=== PATIENT | male | born 1955 | race Caucasian/White ===

== ENCOUNTER 2017-07-31 05:02 | Inpatient (IN) | payer OTHER ==
[2017-07-31] MEDS ORDERED: SODIUM CHLORIDE 0.9% 1000 ML INFUS.BAG IV STA (05:32)
[2017-07-31 06:09] LABS: BASO % 0.4 % (0-2.0); EOS % 0.1 % (0-4.5); HEMATOCRIT 24.6 % (35.4-49); HEMOGLOBIN 8.4 GM/dL (11.7-16.9); LYMPH % 7.5 % (8-40); MCH 33.7 pg (25.7-33.7); MCHC 34.2 g/dl (32.0-35.9); MEAN CELL VOLUME 98.6 fl (80-96); MEAN PLT VOLUME 10.1 fl (7.5-11.1); MONO % 9.1 % (3.8-10.2); NEUT % 82.9 % (42.8-82.8); PLATELET COUNT 153 K/MM3 (134-434); RBC 2.49 M/mm3 (4.00-5.60); RDW 15.9 % (11.9-15.9); WHITE BLOOD COUNT 14.9 K/mm3 (4.0-10.0)
[2017-07-31 06:11] LABS: URINE APPEARANCE CLOUDY; URINE BILIRUBIN NEGATIVE (<2.0 mg/dL); URINE COLOR DKYELLOW; URINE GLUCOSE (UA) 1+ (NEGATIVE); URINE KETONE NEGATIVE (NEGATIVE); URINE NITRITE NEGATIVE (NEGATIVE); URINE UROBILINOGEN NEGATIVE mg/dL (0.2-1.0)
[2017-07-31 06:13] VITALS: BMI 30.1
[2017-07-31 06:15] LABS: VENOUS PC02 39.2 mmHg (38-52); VENOUS PH 7.47 (7.32-7.42); VENOUS PO2 46.7 mmHg (28-48)
[2017-07-31 06:27] LABS: URINE LEUK ESTERASE 3+ (NEGATIVE); URINE PROTEIN 2+ (NEGATIVE)
[2017-07-31 06:30] LABS: EPI CELLS RARE /HPF (FEW); URINE BACTERIA MODERATE /hpf (NONE SEEN)
[2017-07-31 06:33] LABS: ALBUMIN 2.3 g/dl (3.4-5.0); ALK PHOS 74 U/L (45-117); ANION GAP 7 (8-16); BILIRUBIN,TOTAL 0.4 mg/dL (0.2-1.0); BLOOD UREA NITROGEN 26 mg/dL (7-18); CHLORIDE 108 mmol/L (98-107); CO2 28 mmol/L (21-32); CREATININE 0.8 mg/dL (0.7-1.3); GLUCOSE,RANDOM 164 mg/dL (74-106); SGPT/ALT 31 U/L (12-78); SODIUM 143 mmol/L (136-145); TOT PROT 6.1 g/dl (6.4-8.2)
--- NOTE | 2017-07-31 06:38 | PDOC ---
History of Present Illness - General Chief Complaint: SIRS, Suspected/Possible Stated Complaint: FEVER Time Seen by Provider: 07/31/17 05:39 History Source: Care Provider, EMS Exam Limitations: No Limitations - History of Present Illness Initial Comments: 07/31/17 06:14 Patient is a 61-year-old male with history of dry eye syndrome, GERD with esophagitis, rheumatic mitral valve disease, hypertension, PT, pressure ulcers, pain disorder, tracheostomy, anemia, hypotension, hypothyroid, anemia, typhoid fever, by EMS for fever. On arrival they found patient lethargic they started an IV line gave him fluids. [facility] called spoke with the RN states that given Levaquin 500mg at 10pm and vancomycin 1 gm at 3 am, tylenol at 2 am. Patient is unable to participate in his history to to trach. PMD: Dr. Dobbins PMHX: as above, PSOCHX: Lives in the in [facility], (+) DNR ALL: NKDA ROS limited to to patient medical condition GENERAL: [The patient is awake, in no mild distress.] HEAD: [Normal with no signs of trauma.] EYES: [Pupils equal, round and reactive to light, sclera anicteric, conjunctiva clear.] ENT: [Ears normal, nares patent, oropharynx clear without exudates. Dry mucous membranes.] NECK: JVD, or masses, (+) trach collar] LUNGS: [Breath sounds equal, clear to auscultation bilaterally. No wheezes, and no crackles.] HEART: [Regular rate and rhythm, normal S1 and S2 without murmur, rub.] ABDOMEN: [Soft, nontender, normoactive bowel sounds. No guarding, no rebound. No masses.] EXTREMITIES: Flacid extremities, no edema. No clubbing or cyanosis. No cords, erythema, or tenderness.] NEUROLOGICAL: sensitive to touch, PSYCH: [Normal mood, normal affect.] SKIN: Penile warts, (+) stage 2 scaral decubitus, warmth, poor turgor, hyper pigmented rash to the b/l lower ext Past History - Past Medical History Allergies/Adverse Reactions: Allergies Allergy/AdvReac Type Severity Reaction Status Date / Time No Known Allergies Allergy Verified 05/26/13 15:18 Home Medications: Ambulatory Orders Acetaminophen [Tylenol Extra Strength] 500 mg PO PRN 07/31/17 Famotidine 20 mg PO DAILY 07/31/17 Heparin Sod,Porcine/0.9 % NaCl [Heparin 5,000 Unit/5 ml-Ns] 5,000 unit IV DAILY 07/31/17 Levothyroxine [Synthroid -] 25 mcg PO DAILY 07/31/17 Metoprolol Succinate 25 mg PO BID 07/31/17 Sennosides [Senna] 8.8 mg PO DAILY 07/31/17 levoFLOXacin [Levaquin -] 500 mg PO DAILY 07/31/17 Anemia: No Asthma: No Cancer: No Cardiac Disorders: No CVA: No COPD: No CHF: No Dementia: No Diabetes: No GI Disorders: No Disorders: No HTN: Yes Hypercholesterolemia: No Kidney Stones: No Liver Disease: No Seizures: Yes (drug related seizure 12/2012) Thyroid Disease: No - Surgical History Abdominal Surgery: No Appendectomy: No Cardiac Surgery: No Cholecystectomy: No Lung Surgery: No Neurologic Surgery: No Orthopedic Surgery: No - Reproductive History Testicular Surgery: No - Suicide/Smoking/Psychosocial Hx Smoking History: Unknown if ever smoked Have you smoked in the past 12 months: No If you are a former smoker, when did you quit?: 9 years ago Hx Alcohol Use: No Drug/Substance Use Hx: No Substance Use Type: Tranquilizers (XANAX 4MG/D,KLONIOPIN 3MG/D) Hx Substance Use Treatment: Yes ([facility]) Respiratory Specific PMHX - Complaint Specific PMHX TB (Tuberculosis): No *Physical Exam - Vital Signs Last Vital Signs Temp Pulse Resp BP Pulse Ox 103.0 F H 100 H 15 143/74 100 07/31/17 06:07 07/31/17 06:07 07/31/17 06:07 07/31/17 06:07 07/31/17 06:07 ED Treatment Course - LABORATORY CBC & Chemistry Diagram: 07/31/17 05:41 07/31/17 05:41 - RADIOLOGY Radiology Studies Ordered: Category Date Time Status CHEST X-RAY PORTABLE* [RAD] Stat Radiology 07/31/17 05:29 Ordered - Medications Given in the ED: ED Medications Discontinued Medications Generic Name Dose Route Start Last Admin Trade Name Freq PRN Reason Stop Dose Admin Sodium Chloride 3,000 ml 07/31/17 05:32 07/31/17 06:06 Normal Saline - IV 07/31/17 05:33 3,000 ml ONCE STA Administration Medical Decision Making - Medical Decision Making 07/31/17 06:39 Patient is a 61-year-old male with history of dry eye syndrome, GERD with esophagitis, rheumatic mitral valve disease, hypertension, PT, pressure ulcers, pain disorder, tracheostomy, anemia, hypotension, hypothyroid, anemia, typhoid fever, by EMS for fever. Sepsis workup initiated, continued IV fluids at 30ml/kg will give zosyn 3.375mg IV patient was given vancomyin 1 gm at the prison admit 07/31/17 06:44 EKG SR rate 07/31/17 06:47 cxr neg labs noted wbc, wbc on urine 07/31/17 06:[address] Will have to [address] Dr. Bobby Sheppard for admission orders 07/31/17 06:57 Endorsed to the 7 AM team pending orders for admit *DC/Admit/Observation/Transfer Diagnosis at time of Disposition: UTI (urinary tract infection) Sepsis Qualifiers: Sepsis type: sepsis due to unspecified organism Qualified Code(s): A41.9 - Sepsis, unspecified organism - Discharge Dispostion Condition at time of disposition: Guarded - Referrals - Patient Instructions - Post Discharge Activity
[2017-07-31 06:41] LABS: INR 1.29 (0.82-1.09); POTASSIUM 3.6 mmol/L (3.5-5.1); PROTHROMBIN TIME (PATIENT) 14.6 SEC (9.98-11.88); SGOT/AST 29 U/L (15-37)
[2017-07-31 06:44] LABS: ACTIVATED PTT 29.3 SECONDS (26.9-34.4)
[2017-07-31] MEDS ORDERED: PIPERACILLIN/TAZOB 3.375 GM 3.375 GM in DEXTROSE 5%-WATER - 50 ML IVPB ONE (06:48)
[2017-07-31] MEDS ORDERED: ACETAMINOPHEN 650 MG SUPP.RECT PR ONE (07:03)
--- NOTE | 2017-07-31 07:29 | HP ---
CHIEF COMPLAINT: fever, lethargic PCP: Dr. Sheppard HISTORY OF PRESENT ILLNESS: Patient is a 61 year old male with a significant past medical history of dry eye syndrome, GERD with esophagitis, rheumatic mitral valve disease, hypertension, chronic pressure ulcers, pain disorder, tracheostomy, anemia, hypotension, hypothyroid, anemia, typhoid fever. As per report, patient was at the [facility] where he currently resides. Staff found patient lethargic and was started on an peripheral IV line and administered Levaquin 500mg IV and Vancomycin 1 gram at 3.am. He was also given Tylenol. On exam, patient is lethargic, warm to touch, on mechanical ventilation. Has G tube, right groin sevilla catheter draining dark cory urine. He was noted to have a fever of 103F, tachycardia and a WBC of 14.7, + UA. Blood and cultures were drawn in the ED but pt received IV antiboitics prior to arrival. ER course was notable for: (1) meets sepsis criteria (2) Vanco & Zosyn (3) +ua, UC and BC pending PAST MEDICAL HISTORY: see above PAST SURGICAL HISTORY: trach, right groin sevilla catheter, G tube Social History: Smoking: n/a Alcohol: n/a Drugs: n/a Family History: Allergies No Known Allergies Allergy (Verified 05/26/13 15:18) HOME MEDICATIONS: Home Medications Medication Instructions Recorded Acetaminophen [Tylenol Extra 500 mg PO PRN 07/31/17 Strength] Famotidine 20 mg PO DAILY 07/31/17 Heparin Sod,Porcine/0.9 % NaCl 5,000 unit IV DAILY 07/31/17 [Heparin 5,000 Unit/5 ml-Ns] Levothyroxine [Synthroid -] 25 mcg PO DAILY 07/31/17 Metoprolol Succinate 25 mg PO BID 07/31/17 Sennosides [Senna] 8.8 mg PO DAILY 07/31/17 levoFLOXacin [Levaquin -] 500 mg PO DAILY 07/31/17 PHYSICAL EXAMINATION Vital Signs - 24 hr 07/31/17 07/31/17 07/31/17 05:20 06:07 06:19 Temperature 103.0 F H 103.1 F H Pulse Rate 100 H 103 H Respiratory 22 15 Rate Blood Pressure 143/74 O2 Sat by Pulse 100 100 Oximetry (%) GENERAL:Lethargic, eyes open, responsive to voice, trach HEAD: Normal with no signs of trauma. EYES: Pupils equal, round and reactive to light, reddened sclera EARS, NOSE, THROAT: Ears normal, nares patent, + trach with mechanical ventilation NECK: trach LUNGS: rhonchi anteriorly HEART: Regular rate and rhythm ABDOMEN: Soft, nontender, not distended, + G Tube GROIN: Right groin urine catheter with 100cc of dark cory urine, multiple wart like growths on penis UPPER EXTREMITIES:. No clubbing. No peripheral edema. LOWER EXTREMITIES: Right lower ext discoloration with wart like growths on left lower ext, left lower ext. discoloration NEUROLOGICAL: non verbal on exam, lethargic SKIN: dimed sized stage two on sacrum, present on admission Laboratory Results - last 24 hr 07/31/17 07/31/17 07/31/17 05:41 05:41 05:41 WBC 14.9 H D RBC 2.49 L D Hgb 8.4 L D Hct 24.6 L D MCV 98.6 H MCH 33.7 MCHC 34.2 RDW 15.9 D Plt Count 153 MPV 10.1 Neutrophils % 82.9 H Lymphocytes % 7.5 L Monocytes % 9.1 Eosinophils % 0.1 Basophils % 0.4 PT with INR 14.60 H INR 1.29 H PTT (Actin FS) 29.3 VBG pH 7.47 H POC VBG pCO2 39.2 POC VBG pO2 46.7 Mixed VBG HCO3 28.4 H Sodium Potassium Chloride Carbon Dioxide Anion Gap BUN Creatinine Creat Clearance w eGFR Random Glucose Lactic Acid Calcium Total Bilirubin AST ALT Alkaline Phosphatase Troponin I Total Protein Albumin Urine Color Urine Appearance Urine pH Ur Specific Henderson Urine Protein Urine Glucose (UA) Urine Ketones Urine Blood Urine Nitrite Urine Bilirubin Urine Urobilinogen Ur Leukocyte Esterase Urine WBC (Auto) Urine RBC (Auto) Ur Epithelial Cells Urine Bacteria 07/31/17 07/31/17 07/31/17 05:41 05:41 05:41 WBC RBC Hgb Hct MCV MCH MCHC RDW Plt Count MPV Neutrophils % Lymphocytes % Monocytes % Eosinophils % Basophils % PT with INR INR PTT (Actin FS) VBG pH POC VBG pCO2 POC VBG pO2 Mixed VBG HCO3 Sodium 143 Potassium 3.6 Chloride 108 H Carbon Dioxide 28 Anion Gap 7 L BUN 26 H D Creatinine 0.8 Creat Clearance w eGFR > 60 Random Glucose 164 H D Lactic Acid 1.9 Calcium 8.0 L Total Bilirubin 0.4 D AST 29 ALT 31 Alkaline Phosphatase 74 Troponin I 0.02 Total Protein 6.1 L D Albumin 2.3 L D Urine Color Urine Appearance Urine pH Ur Specific Henderson Urine Protein Urine Glucose (UA) Urine Ketones Urine Blood Urine Nitrite Urine Bilirubin Urine Urobilinogen Ur Leukocyte Esterase Urine WBC (Auto) Urine RBC (Auto) Ur Epithelial Cells Urine Bacteria 07/31/17 05:51 WBC RBC Hgb Hct MCV MCH MCHC RDW Plt Count MPV Neutrophils % Lymphocytes % Monocytes % Eosinophils % Basophils % PT with INR INR PTT (Actin FS) VBG pH POC VBG pCO2 POC VBG pO2 Mixed VBG HCO3 Sodium Potassium Chloride Carbon Dioxide Anion Gap BUN Creatinine Creat Clearance w eGFR Random Glucose Lactic Acid Calcium Total Bilirubin AST ALT Alkaline Phosphatase Troponin I Total Protein Albumin Urine Color Dkyellow Urine Appearance Cloudy Urine pH 7.0 Ur Specific Henderson 1.018 Urine Protein 2+ H Urine Glucose (UA) 1+ H Urine Ketones Negative Urine Blood 3+ H Urine Nitrite Negative Urine Bilirubin Negative Urine Urobilinogen Negative Ur Leukocyte Esterase 3+ H D Urine WBC (Auto) 492 Urine RBC (Auto) 374 Ur Epithelial Cells Rare Urine Bacteria Moderate ASSESSMENT/PLAN: Patient is a 61 year old male with a significant past medical history of dry eye syndrome, GERD with esophagitis, rheumatic mitral valve disease, hypertension, chronic pressure ulcers, pain disorder, tracheostomy, anemia, hypotension, hypothyroid, anemia, typhoid fever. As per report, patient was at the [facility] where he currently resides. Staff found patient lethargic and was started on an peripheral IV line and administered Levaquin 500mg IV and Vancomycin 1 gram at 3.am. He was also given Tylenol. On exam, patient is lethargic, warm to touch, on mechanical ventilation. Has G tube, right groin sevilla catheter draining dark cory urine. He was noted to have a fever of 103F, tachycardia and a WBC of 14.7, + UA. Blood and cultures were drawn in the ED but pt received IV antiboitics prior to arrival. Sepsis, likely secondary to UTI vs. other source Blood and cultures sent and pending, given antibiotics at [facility] prior to arrival Rezao and Sydnee in ED Hydrate with NS 100cc/hr Lactic acid wnl WBC elevated ID consulted for further antibiotic therapy Dry eye syndrome, chronic GERD with esophagitis - has G tube Rheumatic mitral valve disease, history Hypertension, monitor in the setting of sepsis Reported to be hypotensive at [facility] Chronic pressure ulcers, stage 2 present on admission Turn and positition q 2 Pain disorder, Flacc pain scale Tracheostomy, chonic trach care Anemia, low stable Trend hypothyroid, TSH Anemia F.E.N. Fluids: NS @ 100cc/hr Electrolytes: monitor Nutrition: hold tube feeds Prophy: DVT: heparin TID Gi: Protonix Disposition: requires inpatient hospitalization for sepsis. Visit type - Emergency Visit Emergency Visit: Yes Care time: The patient presented to the Emergency Department on the above date and was hospitalized for further evaluation of their emergent condition. - New Patient This patient is new to me today: Yes Date on this admission: 07/31/17 - Critical Care Critical Care patient: Yes Total Critical Care Time (in minutes): 40 Critical Care Statement: The care of this patient involved high complexity decision making to prevent further life threatening deterioration of the patient 's condition and/or to evaluate & treat vital organ system(s) failure or risk of failure. Hospitalist Screening - Colonoscopy Questionnaire Colonoscopy Questionnaire: Colonoscopy Questionnaire - Patient: 50 - 75 years old and never had a screening colonoscopy: Unknown History of colon or rectal polyps, or CA: Unknown History of IBD, Crohn's disease or UC: Unknown History of abdominal radiation therapy as a child: Unknown - Relative: 1 with colon or rectal CA, or polyps at age 60 or younger: Unknown Colon or rectal CA diagnosed at age 45 or younger: Unknown Multiple relatives with colon or rectal CA: Unknown - Outcome: Screening Result: Negative Screen
[2017-07-31 07:54] LABS: URINE APPEARANCE SLCLOUDY; URINE BILIRUBIN NEGATIVE (<2.0 mg/dL); URINE COLOR YELLOW; URINE GLUCOSE (UA) NEGATIVE (NEGATIVE); URINE KETONE NEGATIVE (NEGATIVE); URINE NITRITE NEGATIVE (NEGATIVE); URINE UROBILINOGEN NEGATIVE mg/dL (0.2-1.0)
[2017-07-31] MEDS ORDERED: PIPERACILLIN/TAZOB 3.375 GM 3.375 GM/50 ML BAG IVPB ONE (07:56)
[2017-07-31] MEDS ORDERED: ACETAMINOPHEN 650 MG SUPP.RECT ONE (07:57)
[2017-07-31 08:07] LABS: URINE LEUK ESTERASE 2+ (NEGATIVE); URINE PROTEIN 1+ (NEGATIVE)
[2017-07-31] MEDS: SODIUM CHLORIDE 1,000 ML IV SCH (09:38)
[2017-07-31] MEDS ORDERED: MUPIROCIN 2% TOPICAL OINTMENT FOR DECOLONIZATION NS SCH (10:00)
--- NOTE | 2017-07-31 10:41 | EKG ---
Test Reason : Blood Pressure : / mmHG Vent. Rate : 106 BPM Atrial Rate : 106 BPM P-R Int : 000 ms QRS Dur : 088 ms QT Int : 338 ms P-R-T Axes : -43 -45 081 degrees QTc Int : 448 ms PROBABLE SINUS TACHYCARDIA LEFT ANTERIOR FASCICULAR BLOCK NONSPECIFIC T WAVE ABNORMALITY ABNORMAL ECG NO PREVIOUS ECGS AVAILABLE Confirmed by MADDISON MONROE MD ([id number]) on 07/31/2017 10:41:31 AM Referred By: Confirmed By:MADDISON MONROE MD
--- NOTE | 2017-07-31 11:46 | PN ---
Progress Note (short form) - Note Progress Note: ID Asked to see for fever Microbiology Selected Entries 07/31/17 07:51 Temperature 102.8 F H Pulse Rate [ 94 H Left Radial] Respiratory 20 Rate Blood Pressure 142/77 [Right Arm] O2 Sat by Pulse 100 Oximetry (%) HEENT injection of the right eye suprapubic sevilla right groin Extensive condylomata of the suprapubic are and penis Microbiology Laboratory Tests 07/31/17 07/31/17 07/31/17 05:41 05:41 05:41 WBC 14.9 H D Hgb 8.4 L D Hct 24.6 L D Plt Count 153 Neutrophils % 82.9 H Lymphocytes % 7.5 L INR 1.29 H Creatinine 0.8 Random Glucose 164 H D AST 29 Alkaline Phosphatase 74 Total Protein 6.1 L D Albumin 2.3 L D Urine RBC (Auto) 07/31/17 05:51 WBC Hgb Hct Plt Count Neutrophils % Lymphocytes % INR Creatinine Random Glucose AST Alkaline Phosphatase Total Protein Albumin Urine RBC (Auto) 374 Assessment Sepsis urinary trct source Chronic vent dependency Florid genital condylomata Suprapubic sevilla catheter Conjunctivitis OD ? Plan Vancomycin 1.5 grs q 12 H & Zosyn 4.5 grs q 8 H BLood and urine cultures HIV test though I suspect has been tested RPR Tobramycin eye gtts OD Veena ROY Problem List - Problems (1) Condylomata acuminata in male Code(s): A63.0 - ANOGENITAL (VENEREAL) WARTS (2) Sepsis Code(s): A41.9 - SEPSIS, UNSPECIFIED ORGANISM Qualifiers: Sepsis type: sepsis due to unspecified organism Qualified Code(s): A41.9 - Sepsis, unspecified organism (3) UTI (urinary tract infection) Code(s): N39.0 - URINARY TRACT INFECTION, SITE NOT SPECIFIED (4) Hepatitis C carrier Code(s): Z22.52 - (5) Mitral valve prolapse Code(s): I34.1 - NONRHEUMATIC MITRAL (VALVE) PROLAPSE
--- NOTE | 2017-07-31 12:38 | CONS ---
DATE OF CONSULTATION: HISTORY: This is a 62-year-old male [facility] patient with a history of multiple comorbidities including ventilator dependency. According to the notes, the patient was [facility]argic in the [facility] and given a peripheral intravenous line through which he was given levofloxacin and a dose of vancomycin at 3 a.m. in the morning. Tylenol was also administered. He was sent to the emergency room where he was noted to have a suprapubic Boucher catheter in the right groin. His temperature here was 103, and he was noted to be tachycardic with a leukocytosis and a positive urinalysis for many white cells. He was given a dose of vancomycin and Zosyn in the emergency room, and I am asked to see him for further evaluation and treatment. PAST MEDICAL HISTORY: Includes rheumatic heart disease, hypertension, chronic pressure ulcers, tracheostomy, hypothyroidism, anemia, hepatitis C, and a history of typhoid fever as per the notes. MEDICATIONS: Include metoprolol, a dose of vancomycin and Levaquin given. ALLERGIES: None known. SOCIAL HISTORY: According to the chart, unavailable with regard to smoking, alcohol, or prior substance abuse. FAMILY HISTORY: Also unobtainable. REVIEW OF SYSTEMS: Respiratory: Chronic ventilatory dependency. Cardiac: History of mitral valve disease. Gastrointestinal: PEG feeding tube. No diarrhea, vomiting, hematemesis. Genitourinary: Chronic, indwelling suprapubic Boucher catheter in the right groin. PHYSICAL EXAMINATION: General: He is ventilator dependent and unresponsive to verbal stimuli. Vital Signs: Temperature currently 100.7, pulse 90, blood pressure 140/75, respirations 20 and 40% FiO2 on mechanical ventilation. HEENT: Reveals an injected conjunctivae on the right eye. Neck: With a tracheostomy. Heart: S1, S2. Regular rhythm without audible murmur or gallop. Abdomen: Soft, nontender without hepatosplenomegaly. Positive G-tube. Normoactive bowel sounds. Genitourinary: Right groin catheter as well as multiple florid, wart-like growths on the suprapubic area extending onto the penis. Extremities: Reveal bilateral peripheral edema with hyperpigmented, indurated, scaly plaque noted on both lower extremities. LABORATORY DATA: White count 14.9, hemoglobin 8.4, platelets 153, INR 1.29, BUN 26, creatinine 0.8, creatinine clearance greater than 60. Liver enzymes within normal limits. Urinalysis with 3+ leukocyte esterase, 500 WBCs, 370 RBCs. Moderate bacteria noted. Chest x-ray was reviewed and shows no evidence of acute infiltrate seen. Electrocardiogram in the emergency room shows sinus tachycardia, left anterior fascicular block, nonspecific T-wave abnormalities. ASSESSMENT: 1. Sepsis syndrome most likely source urinary tract in this ventilator-dependent man with a suprapubic right groin Boucher catheter. 2. Conjunctivitis, ? of the right eye. 3. Chronic ventilatory dependency. 4. Florid genital condylomata. 5. Human immunodeficiency virus status unknown. 6. Suprapubic Boucher catheter right groin. 7. History of hepatitis C. Details unknown. PLAN: Empiric therapy for bacterial coverage of sepsis and urinary tract with vancomycin and Zosyn. Blood and urine cultures. HIV test for completeness, though I suspect he has probably been previously tested at some point. RPR to further evaluate the extensive genital warts. Tobramycin eye drops in the right eye. No further workup with regard to hepatitis C at this time. YOKO JENKINS M.D. MARY [id number]
[2017-07-31] MEDS: ACETAMINOPHEN 1000 MG/100 ML VIAL (NON FORMULARY) IVPB PRN ×2 (14:20→23:12)
[2017-07-31] MEDS: TOBRAMYCIN 0.3% OPHTH SOLN 5 ML BOTTLE OD SCH ×2 (15:49→21:54)
[2017-07-31] MEDS ORDERED: INSULIN SLIDING SCALE (NOVOLOG) 1 VIAL SQ SCH (16:30)
[2017-07-31] MEDS ORDERED: PT OWN MED DRAWER 7, Y5N ONE ×2 (16:38→21:42)
[2017-07-31] MEDS ORDERED: PIPERACILLIN/TAZOBACTAM 4.5 GM VIAL IVPB ONE (17:41)
[2017-07-31] MEDS ORDERED: DEXTROSE 5%-WATER 100 ML IVPB ONE (17:41)
[2017-07-31] MEDS: PIPERACILLIN/TAZOB 4.5 GM 4.5 GM in DEXTROSE 5%-WATER 100 ML IVPB SCH (17:51)
[2017-07-31] MEDS: VANCOMYCIN 1,500 MG in DEXTROSE 5%-WATER - 500 ML IVPB SCH (17:51)
[2017-07-31] MEDS: INSULIN SLIDING SCALE (NOVOLOG) 1 VIAL SQ SCH (19:10)
--- NOTE | 2017-07-31 20:43 | RAPID ---
Physical Examination Findings/Remarks: Rapid Response called due to Tachycardia RR team arrived immediately. RN stated that on routine vitals check, patient was found to be tachycardic in the 250s, not in distress. On our examination, HR had came down to the 120s. Last T was 100.5. BP as 140s/90s. O2 sat was 90s. Stat EKG was taken, showed new onset Afib w/ RVR. Stat Lopressor 5mg given. Cardiac profile drawn. TSH. Due to CHADSVASc score at least 3, will start AC, Lovenox 1mg/kg BID. Based on the patient's history, this could be related to febrile and septic status. Cardio consulted. Due to vent, we will keep patient on 5S but will continuously monitor the HR Dr Andie fierro, case reviewed.
[2017-07-31] MEDS ORDERED: METOPROLOL TARTRATE 5 MG/5 ML VIAL IVPUSH ONE (21:00)
[2017-07-31] MEDS: ENOXAPARIN NA (PORCINE) 100 MG/1 ML DISP.SYRIN SQ SCH (21:53)
[2017-07-31] MEDS: METOPROLOL TARTRATE 25 MG TABLET (FP) GT SCH (21:54)
[2017-07-31] MEDS ORDERED: METOPROLOL TARTRATE 25 MG TABLET (FP) GT SCH (22:00)
[2017-07-31] MEDS ORDERED: CHLORHEXIDINE GLUCONATE 4% CLEANSER FOR DECOLONIZATION TP SCH (22:00)
[2017-07-31] MEDS ORDERED: METOPROLOL TARTRATE 25 MG TABLET (FP) PO ONE (22:09)
[2017-07-31] MEDS: ACETAMINOPHEN 325 MG TABLET (FP) PO PRN (23:02)
[2017-08-01] MEDS ORDERED: METOPROLOL TARTRATE 25 MG TABLET (FP) PO ONE (00:40)
[2017-08-01] MEDS ORDERED: PIPERACILLIN/TAZOBACTAM 4.5 GM VIAL IVPB ONE ×3 (01:44→20:06)
[2017-08-01] MEDS ORDERED: DEXTROSE 5%-WATER 100 ML IVPB ONE ×3 (01:44→20:06)
[2017-08-01] MEDS: SODIUM CHLORIDE 1,000 ML IV SCH ×2 (01:55→09:57)
[2017-08-01] MEDS: PIPERACILLIN/TAZOB 4.5 GM 4.5 GM in DEXTROSE 5%-WATER 100 ML IVPB SCH ×3 (02:02→20:26)
[2017-08-01] MEDS: ACETAMINOPHEN 325 MG TABLET (FP) PO PRN (04:43)
[2017-08-01] MEDS: VANCOMYCIN 1,500 MG in DEXTROSE 5%-WATER - 500 ML IVPB SCH ×2 (04:46→17:06)
[2017-08-01] MEDS: TOBRAMYCIN 0.3% OPHTH SOLN 5 ML BOTTLE OD SCH ×3 (06:39→21:15)
[2017-08-01] MEDS: INSULIN SLIDING SCALE (NOVOLOG) 1 VIAL SQ SCH ×2 (06:40→17:06)
[2017-08-01] MEDS: METOPROLOL TARTRATE 25 MG TABLET (FP) GT SCH (09:57)
[2017-08-01] MEDS: ENOXAPARIN NA (PORCINE) 100 MG/1 ML DISP.SYRIN SQ SCH ×2 (09:58→20:31)
[2017-08-01 10:51] LABS: BASO % 0.4 % (0-2.0); EOS % 0.5 % (0-4.5); HEMATOCRIT 25.7 % (35.4-49); HEMOGLOBIN 8.5 GM/dL (11.7-16.9); LYMPH % 7.1 % (8-40); MCH 33.3 pg (25.7-33.7); MCHC 33.2 g/dl (32.0-35.9); MEAN CELL VOLUME 100.3 fl (80-96); MEAN PLT VOLUME 10.6 fl (7.5-11.1); PLATELET COUNT 150 K/MM3 (134-434); RBC 2.56 M/mm3 (4.00-5.60); RDW 16.1 % (11.9-15.9)
--- NOTE | 2017-08-01 11:21 | PN ---
Progress Note, Physician Chief Complaint: Events noted Pt was on Levaquin [place] prior to coming here poorly responsive rapid response called for rapid Afib - Current Medication List Current Medications: Active Medications Acetaminophen (Ofirmev Injection -) 1,000 mg IVPB Q6H PRN PRN Reason: FEVER Last Admin: 07/31/17 23:12 Dose: 1,000 mg Acetaminophen (Tylenol -) 650 mg PO Q6H PRN PRN Reason: PAIN LEVEL 4 - 6 Last Admin: 08/01/17 04:43 Dose: 650 mg Enoxaparin Sodium (Lovenox -) 90 mg SQ Q12H JESUS Last Admin: 08/01/17 09:58 Dose: 90 mg Sodium Chloride (Normal Saline -) 1,000 mls @ 100 mls/hr IV ASDIR JESUS Last Admin: 08/01/17 09:57 Dose: 100 mls/hr Vancomycin HCl 1,500 mg/ (Dextrose) 500 mls @ 250 mls/hr IVPB BID@0400,1600 JESUS PRN Reason: Protocol Last Admin: 08/01/17 04:46 Dose: 250 mls/hr Piperacillin Sod/Tazobactam (Sod 4.5 gm/ Dextrose) 100 mls @ 200 mls/hr IVPB Q8H-IV JESUS PRN Reason: Protocol Last Admin: 08/01/17 09:59 Dose: 200 mls/hr Insulin Aspart (Novolog Vial Sliding Scale -) 1 vial SQ BIDAC JESUS PRN Reason: Protocol Last Admin: 08/01/17 06:40 Dose: Not Given Metoprolol Tartrate (Lopressor -) 25 mg GT ONCE ONE Stop: 08/01/17 11:14 Metoprolol Tartrate (Lopressor -) 50 mg GT BID [facility] Tobramycin Sulfate (Tobrex Ophthalmic Solution -) 1 drop OD TID [facility] Last Admin: 08/01/17 06:39 Dose: 1 drop - Objective Vital Signs: Vital Signs Temperature 99.2 F 08/01/17 09:43 Pulse Rate 104 H 08/01/17 09:43 Respiratory Rate 21 08/01/17 09:43 Blood Pressure 109/73 08/01/17 09:43 O2 Sat by Pulse Oximetry (%) 98 08/01/17 08:01 Constitutional: Yes: No Distress Cardiovascular: Yes: Tachycardia, Pulse Irregular Respiratory: Yes: Diminished, Mechanically Ventilated Gastrointestinal: Yes: Normal Bowel Sounds, Soft, Other (GT+). No: Tenderness Extremities: Yes: Other (chronic venous stasis dermatitis) Edema: Yes Labs: CBC, BMP 08/01/17 06:30 INR, PTT INR 1.29 (0.82-1.09) H 07/31/17 05:41 Problem List - Problems (1) Rapid atrial fibrillation Code(s): I48.91 - UNSPECIFIED ATRIAL FIBRILLATION (2) Chronic respiratory failure Code(s): J96.10 - CHRONIC RESPIRATORY FAILURE, UNSP W HYPOXIA OR HYPERCAPNIA (3) Quadriplegia, functional Code(s): R53.2 - FUNCTIONAL QUADRIPLEGIA (4) Sepsis Code(s): A41.9 - SEPSIS, UNSPECIFIED ORGANISM Qualifiers: Sepsis type: sepsis due to unspecified organism Qualified Code(s): A41.9 - Sepsis, unspecified organism (5) UTI (urinary tract infection) Code(s): N39.0 - URINARY TRACT INFECTION, SITE NOT SPECIFIED Assessment/Plan PLAN [employer] had evaluated pt per nurse ID eval noted On Lovenox BID increase Metoprolol for rate control start GT feeds IV fluids Free water IV antibiotics Cultures pending troponins elevated but flat Pt is DNR
[2017-08-01] MEDS ORDERED: METOPROLOL TARTRATE 25 MG TABLET (FP) GT ONE (12:00)
[2017-08-01 12:29] LABS: ANION GAP 10 (8-16); BLOOD UREA NITROGEN 21 mg/dL (7-18); CALCIUM 7.7 mg/dL (8.5-10.1); CHLORIDE 109 mmol/L (98-107); CO2 23 mmol/L (21-32); CREATININE 0.6 mg/dL (0.7-1.3); GLUCOSE,RANDOM 175 mg/dL (74-106); POTASSIUM 3.1 mmol/L (3.5-5.1); SODIUM 142 mmol/L (136-145)
--- NOTE | 2017-08-01 12:34 | CON.CARD ---
Consult Consult Specialty:: Cardiology Referred by:: Luann Banuelos MD Reason for Consultation:: Rapid atrial fibrillation - History of Present Illness Chief Complaint: Tachycardia History of Present Illness: CHIEF COMPLAINT: fever, lethargic PCP: Dr. Sheppard HISTORY OF PRESENT ILLNESS: Patient is a 61 year old male NHR at [facility] with a significant past medical history of dry eye syndrome, GERD with esophagitis, rheumatic mitral valve disease, hypertension, chronic pressure ulcers, pain disorder, tracheostomy, anemia, hypotension, hypothyroid, anemia, typhoid fever. Staff found patient lethargic and was started on an peripheral IV line and administered Levaquin 500mg IV and Vancomycin 1 gram at 3.am. He was also given Tylenol. He was noted to have a fever of 103F, tachycardia and a WBC of 14.7, + UA. Blood and cultures were drawn in the ED on empiric abx for sepsis source. Noted to have rapid afib on ECG, IV Lopressor given for rate-control, metoprolol resumed per PEG, Lovenox started. PAST MEDICAL HISTORY: see above PAST SURGICAL HISTORY: trach, right groin sevilla catheter, G tube Social History: Smoking: n/a Alcohol: n/a Drugs: n/a Family History: Allergies No Known Allergies Allergy (Verified 05/26/13 15:18) - History Source History Provided By: Medical Record Limitations to Obtaining History: Physical Impairment - Alcohol/Substance Use Hx Alcohol Use: No - Smoking History Smoking history: Former smoker Have you smoked in the past 12 months: No If you are a former smoker, when did you quit?: 9 years ago Home Medications - Allergies Allergies/Adverse Reactions: Allergies Allergy/AdvReac Type Severity Reaction Status Date / Time No Known Allergies Allergy Verified 05/26/13 15:18 - Home Medications Home Medications: Ambulatory Orders Acetaminophen [Tylenol -] 500 mg GT Q6H PRN 07/31/17 Acetaminophen [Tylenol Extra Strength] 500 mg GT DAILY PRN 07/31/17 Albuterol Sulfate Inhaler - [Ventolin Hfa Inhaler -] 2 inh IH Q6H 07/31/17 Clotrimazole/Betamet Diprop [Lotrisone Cream (Small Tube)] 1 applic TP ASDIR Famotidine 20 mg GT DAILY 07/31/17 Heparin Sod,Porcine/0.9 % NaCl [Heparin 5,000 Unit/5 ml-Ns] 5,000 unit SQ Q8H Hypromellose 0.5% Opth Soln [Artificial Tears] 1 drop QID 07/31/17 Levothyroxine [Synthroid -] 25 mcg GT 0600 07/31/17 Metoprolol Succinate 25 mg GT BID 07/31/17 Mineral Oil/Petrolatum,White [Puralube Ophthalmic Ointment] 1 gm OU Q6H Sennosides [Senna] 8.8 mg GT DAILY 07/31/17 levoFLOXacin [Levaquin -] 500 mg GT DAILY 07/31/17 Family Disease History - Family Disease History Family Disease History: CA: Mother, Respiratory: Father (emphysema, alcohol), Other: Father Review of Systems Unable to obtain ROS, reason: Unresponsive on vent Vital Signs: Vital Signs Temperature 99.2 F 08/01/17 09:43 Pulse Rate 104 H 08/01/17 09:43 Respiratory Rate 23 08/01/17 11:40 Blood Pressure 109/73 08/01/17 09:43 O2 Sat by Pulse Oximetry (%) 98 08/01/17 08:01 Respiratory: Yes: Mechanically Ventilated, Rhonchi Gastrointestinal: Yes: Normal Bowel Sounds, Soft Cardiovascular: Yes: Tachycardia, Pulse Irregular JVD: No Carotid Bruit: No Heart Sounds: Yes: S1, S2 Murmur: Yes: Systolic Murmur, Grade 1 Edema: No - Other Data Labs, Other Data: CBC, BMP 08/01/17 06:30 INR, PTT INR 1.29 (0.82-1.09) H 07/31/17 05:41 Troponin, BNP 07/31/17 08/01/17 08/01/17 20:15 06:00 06:00 Troponin I 0.07 H D 0.07 H 0.07 H Troponin, BNP 07/31/17 08/01/17 08/01/17 20:15 06:00 06:00 Troponin I 0.07 H D 0.07 H 0.07 H Rapid afib 120s Echo: Pending Ejection Fraction %: LVEF > or = 40 % Problem List - Problems (1) Chronic respiratory failure Code(s): J96.10 - CHRONIC RESPIRATORY FAILURE, UNSP W HYPOXIA OR HYPERCAPNIA Qualifiers: Respiratory failure complication: unspecified whether with hypoxia or hypercapnia Qualified Code(s): J96.10 - Chronic respiratory failure, unspecified whether with hypoxia or hypercapnia (2) Condylomata acuminata in male Code(s): A63.0 - ANOGENITAL (VENEREAL) WARTS (3) Quadriplegia, functional Code(s): R53.2 - FUNCTIONAL QUADRIPLEGIA (4) Rapid atrial fibrillation Code(s): I48.91 - UNSPECIFIED ATRIAL FIBRILLATION (5) Sepsis Code(s): A41.9 - SEPSIS, UNSPECIFIED ORGANISM Qualifiers: Sepsis type: sepsis due to unspecified organism Qualified Code(s): A41.9 - Sepsis, unspecified organism (6) Mitral valve prolapse Code(s): I34.1 - NONRHEUMATIC MITRAL (VALVE) PROLAPSE Assessment/Plan 08/01/2017 Echo: Normal biventricular size and fxn 1. Rapid atrial fibrillation [id number] 2. Chronic respiratory failure post trach and peg 3. Sepsis source 4. Genital condylomata 5. Demand ischemia 6. Functional quadriplegia 7. Type 2 DM 8. Anemia of chronic disease 9. Hypokalemia P:1. Trops have plateaued, agree with uptitration Lopressor 50 bid for rate- control, systemic anticoagulation, f/u TSH 2. Empiric abx course per ID, f/u C&S, replete K 3. Thank you for consultative opportunity
[2017-08-01] MEDS ORDERED: PT OWN MED DRAWER 7, Y5N ONE ×4 (13:05→20:05)
[2017-08-01] MEDS: ACETAMINOPHEN 1000 MG/100 ML VIAL (NON FORMULARY) IVPB PRN ×2 (13:37→23:27)
--- NOTE | 2017-08-01 13:40 | EKG ---
Test Reason : Blood Pressure : / mmHG Vent. Rate : 161 BPM Atrial Rate : 101 BPM P-R Int : 000 ms QRS Dur : 086 ms QT Int : 278 ms P-R-T Axes : 000 -36 109 degrees QTc Int : 454 ms ATRIAL FIBRILLATION WITH RAPID VENTRICULAR RESPONSE WITH PREMATURE VENTRICULAR OR ABERRANTLY CONDUCTED COMPLEXES LEFT AXIS DEVIATION SEPTAL INFARCT , AGE UNDETERMINED ABNORMAL ECG WHEN COMPARED WITH ECG OF 31-JUL-2017 05:29, PREVIOUS ECG HAS UNDETERMINED RHYTHM, NEEDS REVIEW Confirmed by MD LORELEI, JOHN ([id number]) on 08/01/2017 1:40:07 PM Referred By: Confirmed By:JOHN MOSELEY MD
--- NOTE | 2017-08-01 16:12 | PN ---
Progress Note, Physician History of Present Illness: Remains febrile WBC elevated Cultures so far negative - Current Medication List Current Medications: Active Medications Acetaminophen (Ofirmev Injection -) 1,000 mg IVPB Q6H PRN PRN Reason: FEVER Last Admin: 08/01/17 13:37 Dose: 1,000 mg Acetaminophen (Tylenol -) 650 mg PO Q6H PRN PRN Reason: PAIN LEVEL 4 - 6 Last Admin: 08/01/17 04:43 Dose: 650 mg Enoxaparin Sodium (Lovenox -) 90 mg SQ Q12H [facility]ESUS Last Admin: 08/01/17 09:58 Dose: 90 mg Sodium Chloride (Normal Saline -) 1,000 mls @ 100 mls/hr IV ASDIR JESUS Last Admin: 08/01/17 09:57 Dose: 100 mls/hr Vancomycin HCl 1,500 mg/ (Dextrose) 500 mls @ 250 mls/hr IVPB BID@0400,1600 JESUS PRN Reason: Protocol Last Admin: 08/01/17 04:46 Dose: 250 mls/hr Piperacillin Sod/Tazobactam (Sod 4.5 gm/ Dextrose) 100 mls @ 200 mls/hr IVPB Q8H-IV [facility]ESUS PRN Reason: Protocol Last Admin: 08/01/17 09:59 Dose: 200 mls/hr Insulin Aspart (Novolog Vial Sliding Scale -) 1 vial SQ BIDAC JESUS PRN Reason: Protocol Last Admin: 08/01/17 06:40 Dose: Not Given Metoprolol Tartrate (Lopressor -) 50 mg GT BID [facility]ESUS Tobramycin Sulfate (Tobrex Ophthalmic Solution -) 1 drop OD TID [facility] Last Admin: 08/01/17 13:37 Dose: 1 drop - Objective Vital Signs: Vital Signs Temperature 102.4 F H 08/01/17 13:05 Pulse Rate 92 H 08/01/17 13:05 Respiratory Rate 22 08/01/17 15:22 Blood Pressure 134/62 08/01/17 13:05 O2 Sat by Pulse Oximetry (%) 98 08/01/17 08:01 Constitutional: Yes: No Distress Cardiovascular: Yes: Regular Rate and Rhythm, S1, S2 Respiratory: Yes: Diminished Gastrointestinal: Yes: Normal Bowel Sounds, Soft. No: Tenderness Edema: Yes Integumentary: Yes: Venous Stasis Changes Labs: CBC, BMP 08/01/17 06:30 08/01/17 06:30 INR, PTT INR 1.29 (0.82-1.09) H 07/31/17 05:41 Assessment/Plan Fever ? source Respiratory failure Await cultures Continue zosyn/ vancomycin
[2017-08-01] MEDS ORDERED: POTASSIUM CHLORIDE ORAL LIQUID 20 MEQ/15 ML GT ONE (18:17)
--- NOTE | 2017-08-01 18:20 | HOSP ---
Physical Examination Vital Signs: Vital Signs Temperature 102.4 F H 08/01/17 13:05 Pulse Rate 92 H 08/01/17 13:05 Respiratory Rate 22 08/01/17 15:22 Blood Pressure 134/62 08/01/17 13:05 O2 Sat by Pulse Oximetry (%) 98 08/01/17 08:01 Findings/Remarks: called by RN that patients potassium level this AM was 3.1. will give kcl 40meq via gtube. check k level in the am Labs: CBC, BMP 08/01/17 06:30 08/01/17 06:30
[2017-08-01] MEDS: METOPROLOL TARTRATE 50 MG TABLET (FP) GT SCH (21:15)
[2017-08-02] MEDS ORDERED: DEXTROSE 5%-WATER 100 ML IVPB ONE ×4 (00:34→17:55)
[2017-08-02] MEDS ORDERED: PIPERACILLIN/TAZOBACTAM 4.5 GM VIAL IVPB ONE ×4 (00:34→17:55)
[2017-08-02] MEDS: PIPERACILLIN/TAZOB 4.5 GM 4.5 GM in DEXTROSE 5%-WATER 100 ML IVPB SCH ×3 (01:52→18:28)
[2017-08-02] MEDS: VANCOMYCIN 1,500 MG in DEXTROSE 5%-WATER - 500 ML IVPB SCH ×2 (05:04→15:51)
[2017-08-02] MEDS ORDERED: PT OWN MED DRAWER 7, Y5N ONE ×4 (05:38→16:26)
[2017-08-02] MEDS: TOBRAMYCIN 0.3% OPHTH SOLN 5 ML BOTTLE OD SCH ×3 (05:47→22:05)
[2017-08-02] MEDS: INSULIN SLIDING SCALE (NOVOLOG) 1 VIAL SQ SCH ×2 (06:00→16:27)
[2017-08-02 08:07] LABS: CHLORIDE 107 mmol/L (98-107); POTASSIUM 3.4 mmol/L (3.5-5.1); SODIUM 140 mmol/L (136-145)
[2017-08-02 08:13] LABS: ALBUMIN 2.1 g/dl (3.4-5.0); ALK PHOS 81 U/L (45-117); ANION GAP 8 (8-16); BILIRUBIN,TOTAL 0.4 mg/dL (0.2-1.0); BLOOD UREA NITROGEN 23 mg/dL (7-18); CALCIUM 7.8 mg/dL (8.5-10.1); CO2 25 mmol/L (21-32); CREATININE 0.8 mg/dL (0.7-1.3); GLUCOSE,RANDOM 199 mg/dL (74-106); SGOT/AST 41 U/L (15-37); SGPT/ALT 39 U/L (12-78); TOT PROT 6.1 g/dl (6.4-8.2)
[2017-08-02] MEDS ORDERED: POTASSIUM CHLORIDE ORAL LIQUID 20 MEQ/15 ML GT ONE (09:15)
[2017-08-02] MEDS: ACETAMINOPHEN 325 MG TABLET (FP) PO PRN (09:54)
[2017-08-02] MEDS: METOPROLOL TARTRATE 50 MG TABLET (FP) GT SCH ×2 (09:54→22:05)
[2017-08-02] MEDS: ENOXAPARIN NA (PORCINE) 100 MG/1 ML DISP.SYRIN SQ SCH (10:00)
[2017-08-02] MEDS: SODIUM CHLORIDE 1,000 ML IV SCH (10:00)
[2017-08-02 10:10] LABS: BASO % 0.2 % (0-2.0); EOS % 0.2 % (0-4.5); HEMATOCRIT 29.2 % (35.4-49); HEMOGLOBIN 9.7 GM/dL (11.7-16.9); LYMPH % 8.9 % (8-40); MCH 33.4 pg (25.7-33.7); MCHC 33.4 g/dl (32.0-35.9); MEAN PLT VOLUME 10.4 fl (7.5-11.1); MONO % 7.9 % (3.8-10.2); NEUT % 82.8 % (42.8-82.8); PLATELET COUNT 196 K/MM3 (134-434); RBC 2.92 M/mm3 (4.00-5.60); RDW 15.5 % (11.9-15.9); WHITE BLOOD COUNT 15.3 K/mm3 (4.0-10.0)
--- NOTE | 2017-08-02 12:47 | PN ---
Progress Note, Physician Chief Complaint: still with fevers, but pt is more awake today than compared to yesterday not in distress - Current Medication List Current Medications: Active Medications Acetaminophen (Tylenol -) 650 mg PO Q6H PRN PRN Reason: PAIN LEVEL 4 - 6 Last Admin: 08/02/17 09:54 Dose: 650 mg Enoxaparin Sodium (Lovenox -) 90 mg SQ Q12H [facility] Last Admin: 08/02/17 10:00 Dose: 90 mg Sodium Chloride (Normal Saline -) 1,000 mls @ 100 mls/hr IV ASDIR [facility] Last Admin: 08/02/17 10:00 Dose: 100 mls/hr Vancomycin HCl 1,500 mg/ (Dextrose) 500 mls @ 250 mls/hr IVPB BID@0400,1600 [facility] PRN Reason: Protocol Last Admin: 08/02/17 05:04 Dose: 250 mls/hr Piperacillin Sod/Tazobactam (Sod 4.5 gm/ Dextrose) 100 mls @ 200 mls/hr IVPB Q8H-IV JESUS PRN Reason: Protocol Last Admin: 08/02/17 09:54 Dose: 200 mls/hr Insulin Aspart (Novolog Vial Sliding Scale -) 1 vial SQ BIDAC [facility] PRN Reason: Protocol Last Admin: 08/02/17 06:00 Dose: Not Given Metoprolol Tartrate (Lopressor -) 50 mg GT BID [facility] Last Admin: 08/02/17 09:54 Dose: 50 mg Tobramycin Sulfate (Tobrex Ophthalmic Solution -) 1 drop OD TID [facility] Last Admin: 08/02/17 05:47 Dose: 1 drop - Objective Vital Signs: Vital Signs Temperature 101.6 F H 08/02/17 06:00 Pulse Rate 79 08/02/17 06:00 Respiratory Rate 20 08/02/17 11:41 Blood Pressure 150/77 08/02/17 06:00 O2 Sat by Pulse Oximetry (%) 97 08/01/17 10:35 Constitutional: Yes: No Distress Cardiovascular: Yes: Pulse Irregular Respiratory: Yes: Diminished, Mechanically Ventilated Gastrointestinal: Yes: Normal Bowel Sounds, Soft, Other (GT+, suprapubic cath +) . No: Abdomen, Obese, Tenderness Extremities: Yes: Other (chronic venous stasis) Edema: Yes Edema: LLE: 2+, RLE: 2+ Labs: CBC, BMP 08/02/17 09:40 08/02/17 06:50 INR, PTT INR 1.29 (0.82-1.09) H 07/31/17 05:41 Problem List - Problems (1) Rapid atrial fibrillation Code(s): I48.91 - UNSPECIFIED ATRIAL FIBRILLATION (2) Chronic respiratory failure Code(s): J96.10 - CHRONIC RESPIRATORY FAILURE, UNSP W HYPOXIA OR HYPERCAPNIA Qualifiers: Respiratory failure complication: unspecified whether with hypoxia or hypercapnia Qualified Code(s): J96.10 - Chronic respiratory failure, unspecified whether with hypoxia or hypercapnia (3) Quadriplegia, functional Code(s): R53.2 - FUNCTIONAL QUADRIPLEGIA (4) Sepsis Code(s): A41.9 - SEPSIS, UNSPECIFIED ORGANISM Qualifiers: Sepsis type: sepsis due to unspecified organism Qualified Code(s): A41.9 - Sepsis, unspecified organism (5) UTI (urinary tract infection) Code(s): N39.0 - URINARY TRACT INFECTION, SITE NOT SPECIFIED Assessment/Plan PLAN for CT abd/pelvis -- for fevers On Lovenox BID-->changed to Eliquis increase Metoprolol for rate control on GT feeds dc IV fluids Free water IV antibiotics Cultures - one bottle staph coag negative troponins elevated but flat Pt is DNR
--- NOTE | 2017-08-02 13:02 | PN ---
Progress Note, Physician History of Present Illness: Febrile, tachycardic. - Current Medication List Current Medications: Active Medications Acetaminophen (Tylenol -) 650 mg PO Q6H PRN PRN Reason: PAIN LEVEL 4 - 6 Last Admin: 08/02/17 09:54 Dose: 650 mg Enoxaparin Sodium (Lovenox -) 90 mg SQ Q12H [facility] Last Admin: 08/02/17 10:00 Dose: 90 mg Vancomycin HCl 1,500 mg/ (Dextrose) 500 mls @ 250 mls/hr IVPB BID@0400,1600 [facility] PRN Reason: Protocol Last Admin: 08/02/17 05:04 Dose: 250 mls/hr Piperacillin Sod/Tazobactam (Sod 4.5 gm/ Dextrose) 100 mls @ 200 mls/hr IVPB Q8H-IV [facility] PRN Reason: Protocol Last Admin: 08/02/17 09:54 Dose: 200 mls/hr Insulin Aspart (Novolog Vial Sliding Scale -) 1 vial SQ BIDAC [facility] PRN Reason: Protocol Last Admin: 08/02/17 06:00 Dose: Not Given Metoprolol Tartrate (Lopressor -) 50 mg GT BID [facility] Last Admin: 08/02/17 09:54 Dose: 50 mg Tobramycin Sulfate (Tobrex Ophthalmic Solution -) 1 drop OD TID [facility] Last Admin: 08/02/17 05:47 Dose: 1 drop - Objective Vital Signs: Vital Signs Temperature 101.6 F H 08/02/17 06:00 Pulse Rate 118 H 08/02/17 12:56 Respiratory Rate 25 H 08/02/17 12:56 Blood Pressure 102/68 08/02/17 12:56 O2 Sat by Pulse Oximetry (%) 97 08/01/17 10:35 Cardiovascular: Yes: Tachycardia, Pulse Irregular Respiratory: Yes: Mechanically Ventilated, Rhonchi Gastrointestinal: Yes: Normal Bowel Sounds, Soft Edema: No Labs: CBC, BMP 08/02/17 09:40 08/02/17 06:50 INR, PTT INR 1.29 (0.82-1.09) H 07/31/17 05:41 Problem List - Problems (1) Chronic respiratory failure Code(s): J96.10 - CHRONIC RESPIRATORY FAILURE, UNSP W HYPOXIA OR HYPERCAPNIA Qualifiers: Respiratory failure complication: unspecified whether with hypoxia or hypercapnia Qualified Code(s): J96.10 - Chronic respiratory failure, unspecified whether with hypoxia or hypercapnia (2) Condylomata acuminata in male Code(s): A63.0 - ANOGENITAL (VENEREAL) WARTS (3) Quadriplegia, functional Code(s): R53.2 - FUNCTIONAL QUADRIPLEGIA (4) Rapid atrial fibrillation Code(s): I48.91 - UNSPECIFIED ATRIAL FIBRILLATION (5) Sepsis Code(s): A41.9 - SEPSIS, UNSPECIFIED ORGANISM Qualifiers: Sepsis type: sepsis due to unspecified organism Qualified Code(s): A41.9 - Sepsis, unspecified organism (6) Mitral valve prolapse Code(s): I34.1 - NONRHEUMATIC MITRAL (VALVE) PROLAPSE Assessment/Plan 08/01/2017 Echo: Normal biventricular size and fxn 1. Rapid atrial fibrillation [id number] 2. Chronic respiratory failure post trach and peg 3. Sepsis source 4. Genital condylomata 5. Demand ischemia 6. Functional quadriplegia 7. Type 2 DM 8. Anemia of chronic disease 9. Hypokalemia P:1. Trops have plateaued, Continue Lopressor 50 bid for rate-control, systemic anticoagulation 2. Empiric abx course per ID, f/u C&S, replete K 3. Chronic AC mode vent support 4. ct scan abd/pelvis- fuo
--- NOTE | 2017-08-02 13:11 | PN ---
Progress Note (short form) - Note Progress Note: PULMONARY CONSULTATION DICTATED 08/02/17 IMP SEPSIS LIKELY CHRONIC RESPIRATORY FAILURE ON VENT SUPPORT AFIB ANEMIA H/O RHEUMATIC HEART DISEASE H/O TYPHOID HEP C ANEMIA PLAN ABX PER ID VENT SUPPORT ON AC MODE INHALED BRONCHODILATORS CULTURES RATE CONTROL PER CARDIOLOGY MONITOR H+H F/U CHEST X-RAY IVF DR ALEXANDER Problem List - Problems (1) Anemia Code(s): D64.9 - ANEMIA, UNSPECIFIED (2) Chronic respiratory failure Code(s): J96.10 - CHRONIC RESPIRATORY FAILURE, UNSP W HYPOXIA OR HYPERCAPNIA Qualifiers: Respiratory failure complication: unspecified whether with hypoxia or hypercapnia Qualified Code(s): J96.10 - Chronic respiratory failure, unspecified whether with hypoxia or hypercapnia (3) Quadriplegia, functional Code(s): R53.2 - FUNCTIONAL QUADRIPLEGIA (4) Rapid atrial fibrillation Code(s): I48.91 - UNSPECIFIED ATRIAL FIBRILLATION (5) Sepsis Code(s): A41.9 - SEPSIS, UNSPECIFIED ORGANISM Qualifiers: Sepsis type: sepsis due to unspecified organism Qualified Code(s): A41.9 - Sepsis, unspecified organism (6) UTI (urinary tract infection) Code(s): N39.0 - URINARY TRACT INFECTION, SITE NOT SPECIFIED (7) Hepatitis C carrier Code(s): Z22.52 - (8) Rheumatic heart disease Code(s): I09.9 - RHEUMATIC HEART DISEASE, UNSPECIFIED (9) H/O typhoid fever Code(s): Z86.19 - PERSONAL HISTORY OF OTHER INFECTIOUS AND PARASITIC DISEASES
--- NOTE | 2017-08-02 14:08 | PN ---
Progress Note (short form) - Note Progress Note: chart reviewed continued fevers day #2 antibiotics vancomyin/zosyn Vital Signs Period Temp Pulse Resp BP Sys/Bhardwaj Pulse Ox Last 24 Hr 98.9 F-101.6 F 79-118 102-150/68-87 trach to vent cor-rrr lungs clear abd soft,nt +GT +right sided SPT tube +penile warts ext trace edema CBC, BMP 08/02/17 09:40 08/02/17 06:50 Microbiology 07/31/17 05:41 Blood - Peripheral Venous Blood Culture - Preliminary Staphylococcus Coagulase Neg 07/31/17 05:41 Blood - Peripheral Venous Blood Culture - Preliminary NO GROWTH OBTAINED AFTER 48 HOURS, INCUBATION TO CONTINUE FOR 3 DAYS. 07/31/17 05:51 Urine - Urine - Catheterized Urine Culture - Final NO GROWTH OBTAINED a/p persistent fevers- received vanco/levaquin prior to arrival in ED now on vanco/zosyn check vanco level esr/crp ct scan abd/pelvis- fuo suspect blood culture isolat is a contaminant chronic resp failure trach/vent
--- NOTE | 2017-08-02 15:26 | CONS ---
DATE OF CONSULTATION: 08/02/2017 PULMONARY CONSULTATION REFERRING PHYSICIAN: Danyelle Sheppard M.D. HISTORY OF PRESENT ILLNESS: The patient is a 62-year-old white male jail resident with past medical history of chronic respiratory failure (on ventilatory support), rheumatic heart disease, hypertension, chronic pressure ulcers, tracheostomy, hypothyroidism, anemia, hepatitis C, history of typhoid fever - admitted to [facility] secondary to fever and tachycardia. The [facility] the jail at which time he was started on Levaquin. . She started developing progressive symptoms, at which time he was transferred to the ER. In the ER, he was noted to be febrile to a temperature of 100.3, tachycardic, with leukocytosis. He was also noted to have a urinalysis with many white cells. The patient was given vancomycin and Zosyn, and transferred for further management. Hospitalization the patient was evaluated by Dr. Noriega for cardiology consultation secondary to episode of rapid atrial fibrillation. She was given IV Lopressor for rate control. PAST MEDICAL HISTORY: Again, includes chronic respiratory failure (on ventilatory support), history of GERD, esophagitis, rheumatic heart disease, hypertension, chronic pressure ulcers, vein disorder, tracheostomy, hypotension, hypothyroidism, anemia, typhoid fever. CURRENT MEDICATIONS: Include Zosyn, vancomycin, Tylenol, Lovenox, Lopressor, and NovoLog. REVIEW OF SYSTEMS: Unable to obtain. PHYSICAL EXAMINATION: General: The patient is a well-developed male, responsive, on ventilatory support. Vital Signs: Temperature 101.6, heart rate 118, respiratory rate 25. His O2 saturation is 97%. HEENT: Normocephalic, atraumatic. Neck: Supple. Heart: Regular S1, S2. Chest: Bilateral rhonchi. Abdomen: Soft. Bowel sounds are positive. Extremities: Without cyanosis or edema. LABORATORY STUDIES: WBC is 15.3, hemoglobin 9.7, hematocrit 29.2; platelet count 196,000. Venous blood gas pH 7.47, pCO2 of 39, pO2 of 46. Chemistries: BUN 23 , creatinine 0.8, lactate 1.2. Chest x-ray with no infiltrates and no effusions. IMPRESSION: 1. Sepsis secondary to likely genitourinary. 2. Chronic respiratory failure, on ventilatory support. 3. History of rheumatic heart disease. 4. History of hypertension. 5. Chronic pressure ulcer. 6. Hypothyroidism. 7. Anemia. 8. History of hepatitis C. 9. History of typhoid fever. 10. Afib PLAN: Continue broad-spectrum antibiotics as per Infectious Disease. Continue antibiotics. Continue ventilatory support on assist-control mode. IV fluids. Inhaled bronchodilators. Rate control as per Cardiology. Follow up chest x- rays. Follow up cultures. Anticoagulation as well as GI prophylaxis. JUAN ALEXANDER M.D. [id number] MTDD
[2017-08-02] MEDS: APIXABAN 5 MG TABLET PO SCH (22:05)
[2017-08-03] MEDS ORDERED: DEXTROSE 5%-WATER 100 ML IVPB ONE ×2 (01:43→08:43)
[2017-08-03] MEDS ORDERED: PIPERACILLIN/TAZOBACTAM 4.5 GM VIAL IVPB ONE ×2 (01:43→08:43)
[2017-08-03] MEDS: ACETAMINOPHEN 325 MG TABLET (FP) PO PRN ×2 (01:54→14:39)
[2017-08-03] MEDS: PIPERACILLIN/TAZOB 4.5 GM 4.5 GM in DEXTROSE 5%-WATER 100 ML IVPB SCH ×2 (01:56→09:03)
[2017-08-03] MEDS: TOBRAMYCIN 0.3% OPHTH SOLN 5 ML BOTTLE OD SCH ×3 (06:47→22:18)
[2017-08-03] MEDS: INSULIN SLIDING SCALE (NOVOLOG) 1 VIAL SQ SCH ×2 (06:48→18:23)
[2017-08-03 08:13] LABS: BASO % 0.3 % (0-2.0); EOS % 0.2 % (0-4.5); HEMATOCRIT 25.1 % (35.4-49); HEMOGLOBIN 8.5 GM/dL (11.7-16.9); LYMPH % 15.4 % (8-40); MCH 33.3 pg (25.7-33.7); MCHC 33.9 g/dl (32.0-35.9); MEAN CELL VOLUME 98.3 fl (80-96); NEUT % 74.1 % (42.8-82.8); PLATELET COUNT 156 K/MM3 (134-434); RBC 2.55 M/mm3 (4.00-5.60); RDW 15.4 % (11.9-15.9); WHITE BLOOD COUNT 13.1 K/mm3 (4.0-10.0)
[2017-08-03 08:41] LABS: ALBUMIN 1.8 g/dl (3.4-5.0); ALK PHOS 65 U/L (45-117); ANION GAP 8 (8-16); BILIRUBIN,TOTAL 0.3 mg/dL (0.2-1.0); BLOOD UREA NITROGEN 23 mg/dL (7-18); CALCIUM 7.9 mg/dL (8.5-10.1); CHLORIDE 107 mmol/L (98-107); CO2 25 mmol/L (21-32); CREATININE 0.7 mg/dL (0.7-1.3); GLUCOSE,RANDOM 182 mg/dL (74-106); POTASSIUM 3.4 mmol/L (3.5-5.1); SGOT/AST 53 U/L (15-37); SGPT/ALT 57 U/L (12-78); SODIUM 140 mmol/L (136-145); TOT PROT 5.6 g/dl (6.4-8.2)
[2017-08-03] MEDS ORDERED: PT OWN MED DRAWER 7, Y5N ONE ×2 (08:43→14:22)
[2017-08-03] MEDS: APIXABAN 5 MG TABLET PO SCH ×2 (09:03→22:17)
[2017-08-03] MEDS: METOPROLOL TARTRATE 50 MG TABLET (FP) GT SCH ×2 (10:37→22:17)
--- NOTE | 2017-08-03 11:06 | PN ---
Progress Note, Physician Chief Complaint: Remains on Vent via trache History of Present Illness: Patient was seen and examined. Chart was reviewed Trache/PEG Poorly responsive - Current Medication List Current Medications: Active Medications Acetaminophen (Tylenol -) 650 mg PO Q6H PRN PRN Reason: PAIN LEVEL 4 - 6 Last Admin: 08/03/17 01:54 Dose: 650 mg Apixaban (Eliquis -) 5 mg PO BID [facility] Last Admin: 08/03/17 09:03 Dose: 5 mg Piperacillin Sod/Tazobactam (Sod 4.5 gm/ Dextrose) 100 mls @ 200 mls/hr IVPB Q8H-IV [facility] PRN Reason: Protocol Last Admin: 08/03/17 09:03 Dose: 200 mls/hr Insulin Aspart (Novolog Vial Sliding Scale -) 1 vial SQ BIDAC [facility] PRN Reason: Protocol Last Admin: 08/03/17 06:48 Dose: 4 units Metoprolol Tartrate (Lopressor -) 50 mg GT BID [facility] Last Admin: 08/03/17 10:37 Dose: 50 mg Tobramycin Sulfate (Tobrex Ophthalmic Solution -) 1 drop OD TID [facility] Last Admin: 08/03/17 06:47 Dose: 1 drop - Objective Vital Signs: Vital Signs Temperature 99.2 F 08/03/17 10:36 Pulse Rate 108 H 08/03/17 10:36 Respiratory Rate 16 08/03/17 10:36 Blood Pressure 136/72 08/03/17 10:36 O2 Sat by Pulse Oximetry (%) 100 08/03/17 08:31 Neck: Yes: Supple Respiratory: Yes: Other (Trache) Gastrointestinal: Yes: Normal Bowel Sounds. No: Tenderness Edema: Yes Edema: LLE: 1+, RLE: 1+ Labs: CBC, BMP 08/03/17 07:50 08/03/17 07:50 Problem List - Problems (1) Atrial fibrillation Code(s): I48.91 - UNSPECIFIED ATRIAL FIBRILLATION Qualifiers: Atrial fibrillation type: paroxysmal Qualified Code(s): I48.0 - Paroxysmal atrial fibrillation (2) Chronic respiratory failure Code(s): J96.10 - CHRONIC RESPIRATORY FAILURE, UNSP W HYPOXIA OR HYPERCAPNIA Qualifiers: Respiratory failure complication: unspecified whether with hypoxia or hypercapnia Qualified Code(s): J96.10 - Chronic respiratory failure, unspecified whether with hypoxia or hypercapnia (3) Quadriplegia, functional Code(s): R53.2 - FUNCTIONAL QUADRIPLEGIA (4) Sepsis Code(s): A41.9 - SEPSIS, UNSPECIFIED ORGANISM Qualifiers: Sepsis type: sepsis due to unspecified organism Qualified Code(s): A41.9 - Sepsis, unspecified organism (5) UTI (urinary tract infection) Code(s): N39.0 - URINARY TRACT INFECTION, SITE NOT SPECIFIED Qualifiers: Urinary tract infection type: site unspecified Hematuria presence: without hematuria Qualified Code(s): N39.0 - Urinary tract infection, site not specified Assessment/Plan 1. Rapid atrial fibrillation [id number] score of 2 2. Chronic respiratory failure post trache and PEG 3. Sepsis probable source 4. Genital condylomata 5. Demand ischemia 6. Functional quadriplegia 7. Type 2 DM 8. Anemia of chronic disease 9. Hypokalemia PLAN: 1. Continue Lopressor 50 bid via GT for rate-control - up-titrate as needed 2. Empiric antibiotics course per ID 3. Continue vent support 4. NOAC with Eliquis as tolerated 5. Continue fever work up. Further plans are to follow Brian Boyer MD
--- NOTE | 2017-08-03 11:46 | PN ---
Progress Note, Physician Chief Complaint: ID Clearly has fever over 3 days with no source evident amd having gotten antibiotics [employer] Zosyn day 3 Vent dependent Unable to offer any history - Current Medication List Current Medications: Active Medications Acetaminophen (Tylenol -) 650 mg PO Q6H PRN PRN Reason: PAIN LEVEL 4 - 6 Last Admin: 08/03/17 01:54 Dose: 650 mg Apixaban (Eliquis -) 5 mg PO BID [facility] Last Admin: 08/03/17 09:03 Dose: 5 mg Piperacillin Sod/Tazobactam (Sod 4.5 gm/ Dextrose) 100 mls @ 200 mls/hr IVPB Q8H-IV [facility] PRN Reason: Protocol Last Admin: 08/03/17 09:03 Dose: 200 mls/hr Insulin Aspart (Novolog Vial Sliding Scale -) 1 vial SQ BIDAC [facility] PRN Reason: Protocol Last Admin: 08/03/17 06:48 Dose: 4 units Metoprolol Tartrate (Lopressor -) 50 mg GT BID [facility] Last Admin: 08/03/17 10:37 Dose: 50 mg Tobramycin Sulfate (Tobrex Ophthalmic Solution -) 1 drop OD TID [facility] Last Admin: 08/03/17 06:47 Dose: 1 drop - Objective Vital Signs: Vital Signs Temperature 99.2 F 08/03/17 10:36 Pulse Rate 108 H 08/03/17 10:36 Respiratory Rate 16 08/03/17 10:36 Blood Pressure 136/72 08/03/17 10:36 O2 Sat by Pulse Oximetry (%) 100 08/03/17 08:31 Constitutional: Yes: Other (Vent dependent) Neck: Yes: Other (Trach) Cardiovascular: Yes: Regular Rate and Rhythm, S1, S2 Respiratory: Yes: WNL, Regular, CTA Bilaterally Labs: CBC, BMP 08/03/17 07:50 08/03/17 07:50 INR, PTT INR 1.29 (0.82-1.09) H 07/31/17 05:41 Problem List - Problems (1) Condylomata acuminata in male Code(s): A63.0 - ANOGENITAL (VENEREAL) WARTS (2) Sepsis Code(s): A41.9 - SEPSIS, UNSPECIFIED ORGANISM Qualifiers: Sepsis type: sepsis due to unspecified organism Qualified Code(s): A41.9 - Sepsis, unspecified organism (3) UTI (urinary tract infection) Code(s): N39.0 - URINARY TRACT INFECTION, SITE NOT SPECIFIED Qualifiers: Urinary tract infection type: site unspecified Hematuria presence: without hematuria Qualified Code(s): N39.0 - Urinary tract infection, site not specified (4) Hepatitis C carrier Code(s): Z22.52 - (5) Mitral valve prolapse Code(s): I34.1 - NONRHEUMATIC MITRAL (VALVE) PROLAPSE (6) FUO (fever of unknown origin) Code(s): R50.9 - FEVER, UNSPECIFIED Assessment/Plan Microbiology 07/31/17 05:51 Urine - Urine - Catheterized Urine Culture - Final NO GROWTH OBTAINED 07/31/17 05:41 Blood - Peripheral Venous Blood Culture - Preliminary Staphylococcus Epidermidis 07/31/17 05:41 Blood - Peripheral Venous Blood Culture - Preliminary NO GROWTH OBTAINED AFTER 72 HOURS, INCUBATION TO CONTINUE FOR 2 DAYS. Laboratory Tests 07/31/17 07/31/17 08/01/17 05:51 12:45 06:30 WBC Hgb Hct Plt Count ESR BUN Creat Clearance w eGFR Total Bilirubin AST Alkaline Phosphatase C-Reactive Protein Total Protein Albumin Ur Leukocyte Esterase 3+ H Urine WBC (Auto) 492 Urine RBC (Auto) 374 Vancomycin Pre-Dose RPR Titer Nonreactive HIV 1&2 Antibody Screen Negative HIV P24 Antigen Negative 08/03/17 08/03/17 08/03/17 06:00 07:50 07:50 WBC Hgb Hct Plt Count ESR 119 H BUN 23 H Creat Clearance w eGFR > 60 Total Bilirubin 0.3 D AST 53 H D Alkaline Phosphatase 65 C-Reactive Protein 13.7 H Total Protein 5.6 L Albumin 1.8 L Ur Leukocyte Esterase Urine WBC (Auto) Urine RBC (Auto) Vancomycin Pre-Dose 19.1 H* D RPR Titer HIV 1&2 Antibody Screen HIV P24 Antigen 08/03/17 07:50 WBC 13.1 H Hgb 8.5 L D Hct 25.1 L Plt Count 156 D ESR BUN Creat Clearance w eGFR Total Bilirubin AST Alkaline Phosphatase C-Reactive Protein Total Protein Albumin Ur Leukocyte Esterase Urine WBC (Auto) Urine RBC (Auto) Vancomycin Pre-Dose RPR Titer HIV 1&2 Antibody Screen HIV P24 Antigen Assessment At this point need to consider other occult source of fevers. Initially though could be urinary tract based on pyuria but with chronic sevilla WBC may be normal for him. HIS ESR very high as his his CRP Plan Quantiferon gold Stop all antibiotics Ct imaging abd pelvis and chest as part of FUP work up AMBAR rheumatoid factor ( history of ? Sjogrens) Veena ROY
--- NOTE | 2017-08-03 11:56 | PN ---
Progress Note, Physician Chief Complaint: no distress - Current Medication List Current Medications: Active Medications Acetaminophen (Tylenol -) 650 mg PO Q6H PRN PRN Reason: PAIN LEVEL 4 - 6 Last Admin: 08/03/17 01:54 Dose: 650 mg Apixaban (Eliquis -) 5 mg PO BID [facility] Last Admin: 08/03/17 09:03 Dose: 5 mg Insulin Aspart (Novolog Vial Sliding Scale -) 1 vial SQ BIDAC [facility] PRN Reason: Protocol Last Admin: 08/03/17 06:48 Dose: 4 units Metoprolol Tartrate (Lopressor -) 50 mg GT BID [facility] Last Admin: 08/03/17 10:37 Dose: 50 mg Tobramycin Sulfate (Tobrex Ophthalmic Solution -) 1 drop OD TID [facility] Last Admin: 08/03/17 06:47 Dose: 1 drop - Objective Vital Signs: Vital Signs Temperature 99.2 F 08/03/17 10:36 Pulse Rate 108 H 08/03/17 10:36 Respiratory Rate 16 08/03/17 10:36 Blood Pressure 136/72 08/03/17 10:36 O2 Sat by Pulse Oximetry (%) 100 08/03/17 08:31 Constitutional: Yes: No Distress Cardiovascular: Yes: Pulse Irregular Respiratory: Yes: Diminished, Mechanically Ventilated Gastrointestinal: Yes: Normal Bowel Sounds, Soft, Other (GT). No: Tenderness Edema: Yes Labs: CBC, BMP 08/03/17 07:50 08/03/17 07:50 INR, PTT INR 1.29 (0.82-1.09) H 07/31/17 05:41 Problem List - Problems (1) Rapid atrial fibrillation Code(s): I48.91 - UNSPECIFIED ATRIAL FIBRILLATION (2) Chronic respiratory failure Code(s): J96.10 - CHRONIC RESPIRATORY FAILURE, UNSP W HYPOXIA OR HYPERCAPNIA Qualifiers: Respiratory failure complication: unspecified whether with hypoxia or hypercapnia Qualified Code(s): J96.10 - Chronic respiratory failure, unspecified whether with hypoxia or hypercapnia (3) Quadriplegia, functional Code(s): R53.2 - FUNCTIONAL QUADRIPLEGIA (4) Sepsis Code(s): A41.9 - SEPSIS, UNSPECIFIED ORGANISM Qualifiers: Sepsis type: sepsis due to unspecified organism Qualified Code(s): A41.9 - Sepsis, unspecified organism (5) UTI (urinary tract infection) Code(s): N39.0 - URINARY TRACT INFECTION, SITE NOT SPECIFIED Qualifiers: Urinary tract infection type: site unspecified Hematuria presence: without hematuria Qualified Code(s): N39.0 - Urinary tract infection, site not specified Assessment/Plan PLAN for CT abd/pelvis -- for fevers continue Eliquis on Metoprolol for rate control on GT feeds dc IV fluids Free water IV antibiotics dc by ID-- spoke to DR Curiel Cultures - one bottle staph coag negative -- possible contaminant troponins elevated but flat Pt is DNR
--- NOTE | 2017-08-03 12:09 | PN ---
Progress Note (short form) - Note Progress Note: AC mode of vent, 40% FiO2. Febrile 102. Intake & Output 07/31/17 08/01/17 08/02/17 08/03/17 23:59 23:59 23:59 23:59 Intake Total 3000 1470 2530 1120 Output Total 330 850 950 300 Balance 2670 620 1580 820 Weight 209 lb 15.986 oz Last Vital Signs Temp Pulse Resp BP Pulse Ox 99.2 F 108 H 16 136/72 100 08/03/17 10:36 08/03/17 10:36 08/03/17 10:36 08/03/17 10:36 08/03/17 08:31 Active Medications Acetaminophen (Tylenol -) 650 mg PO Q6H PRN PRN Reason: PAIN LEVEL 4 - 6 Last Admin: 08/03/17 01:54 Dose: 650 mg Apixaban (Eliquis -) 5 mg PO BID [facility] Last Admin: 08/03/17 09:03 Dose: 5 mg Insulin Aspart (Novolog Vial Sliding Scale -) 1 vial SQ BIDAC [facility] PRN Reason: Protocol Last Admin: 08/03/17 06:48 Dose: 4 units Metoprolol Tartrate (Lopressor -) 50 mg GT BID [facility] Last Admin: 08/03/17 10:37 Dose: 50 mg Potassium Chloride (Potassium Chloride Oral Liquid) 40 meq GT ONCE ONE Stop: 08/03/17 12:16 Tobramycin Sulfate (Tobrex Ophthalmic Solution -) 1 drop OD TID [facility] Last Admin: 08/03/17 06:47 Dose: 1 drop Constitutional: Yes: No Distress, vented Cardiovascular: Yes: Pulse Irregular Respiratory: Yes: Diminished, Mechanically Ventilated Gastrointestinal: Yes: Normal Bowel Sounds, Soft, Other (GT). No: Tenderness Edema: Yes Labs: Laboratory Results - last 24 hr 08/02/17 08/02/17 08/02/17 15:30 16:25 22:03 WBC RBC Hgb Hct MCV MCH MCHC RDW Plt Count MPV Neutrophils % Lymphocytes % Monocytes % Eosinophils % Basophils % ESR Sodium Potassium Chloride Carbon Dioxide Anion Gap BUN Creatinine Creat Clearance w eGFR POC Glucometer 196 166 Random Glucose Calcium Total Bilirubin AST ALT Alkaline Phosphatase C-Reactive Protein Total Protein Albumin Vancomycin Pre-Dose 22.343 H* Rheumatoid Factor 08/03/17 08/03/17 08/03/17 06:00 06:46 07:50 WBC RBC Hgb Hct MCV MCH MCHC RDW Plt Count MPV Neutrophils % Lymphocytes % Monocytes % Eosinophils % Basophils % ESR Sodium 140 Potassium 3.4 L Chloride 107 Carbon Dioxide 25 Anion Gap 8 BUN 23 H Creatinine 0.7 Creat Clearance w eGFR > 60 POC Glucometer 201 Random Glucose 182 H Calcium 7.9 L Total Bilirubin 0.3 D AST 53 H D ALT 57 D Alkaline Phosphatase 65 C-Reactive Protein 13.7 H Total Protein 5.6 L Albumin 1.8 L Vancomycin Pre-Dose 19.1 H* D Rheumatoid Factor 08/03/17 08/03/17 08/03/17 07:50 07:50 07:50 WBC 13.1 H RBC 2.55 L Hgb 8.5 L D Hct 25.1 L MCV 98.3 H MCH 33.3 MCHC 33.9 RDW 15.4 Plt Count 156 D MPV 10.0 Neutrophils % 74.1 Lymphocytes % 15.4 D Monocytes % 10.0 Eosinophils % 0.2 Basophils % 0.3 ESR 119 H Sodium Potassium Chloride Carbon Dioxide Anion Gap BUN Creatinine Creat Clearance w eGFR POC Glucometer Random Glucose Calcium Total Bilirubin AST ALT Alkaline Phosphatase C-Reactive Protein Total Protein Albumin Vancomycin Pre-Dose Rheumatoid Factor Cancelled 08/03/17 11:28 WBC RBC Hgb Hct MCV MCH MCHC RDW Plt Count MPV Neutrophils % Lymphocytes % Monocytes % Eosinophils % Basophils % ESR Sodium Potassium Chloride Carbon Dioxide Anion Gap BUN Creatinine Creat Clearance w eGFR POC Glucometer 158 Random Glucose Calcium Total Bilirubin AST ALT Alkaline Phosphatase C-Reactive Protein Total Protein Albumin Vancomycin Pre-Dose Rheumatoid Factor Problem List - Problems (1) Anemia Code(s): D64.9 - ANEMIA, UNSPECIFIED (2) Chronic respiratory failure Code(s): J96.10 - CHRONIC RESPIRATORY FAILURE, UNSP W HYPOXIA OR HYPERCAPNIA Qualifiers: Respiratory failure complication: unspecified whether with hypoxia or hypercapnia Qualified Code(s): J96.10 - Chronic respiratory failure, unspecified whether with hypoxia or hypercapnia (3) Quadriplegia, functional Code(s): R53.2 - FUNCTIONAL QUADRIPLEGIA (4) Rapid atrial fibrillation Code(s): I48.91 - UNSPECIFIED ATRIAL FIBRILLATION (5) Sepsis Code(s): A41.9 - SEPSIS, UNSPECIFIED ORGANISM Qualifiers: Sepsis type: sepsis due to unspecified organism Qualified Code(s): A41.9 - Sepsis, unspecified organism (6) UTI (urinary tract infection) Code(s): N39.0 - URINARY TRACT INFECTION, SITE NOT SPECIFIED (7) Hepatitis C carrier Code(s): Z22.52 - (8) Rheumatic heart disease Code(s): I09.9 - RHEUMATIC HEART DISEASE, UNSPECIFIED (9) H/O typhoid fever Code(s): Z86.19 - PERSONAL HISTORY OF OTHER INFECTIOUS AND PARASITIC DISEASES IMP SEPSIS LIKELY CHRONIC RESPIRATORY FAILURE ON VENT SUPPORT AFIB ANEMIA H/O RHEUMATIC HEART DISEASE H/O TYPHOID HEP C ANEMIA PLAN ABX PER ID VENT SUPPORT ON AC MODE INHALED BRONCHODILATORS FOLLOW CULTURES RATE CONTROL PER CARDIOLOGY MONITOR H+H IVF DR FUENTES
[2017-08-03] MEDS ORDERED: POTASSIUM CHLORIDE ORAL LIQUID 20 MEQ/15 ML GT ONE (12:15)
[2017-08-04] MEDS: ACETAMINOPHEN 325 MG TABLET (FP) PO PRN (01:08)
[2017-08-04] MEDS: TOBRAMYCIN 0.3% OPHTH SOLN 5 ML BOTTLE OD SCH ×3 (05:09→21:29)
[2017-08-04] MEDS: INSULIN SLIDING SCALE (NOVOLOG) 1 VIAL SQ SCH ×2 (06:05→18:58)
--- NOTE | 2017-08-04 08:06 | PN ---
Progress Note, Physician Chief Complaint: ID Difficult to evaluate fever as patien unresponsive on a vent ! I stopped antibiotics. He had 102 overnight on Zosyn ! NOW off - Current Medication List Current Medications: Active Medications Acetaminophen (Tylenol -) 650 mg PO Q6H PRN PRN Reason: PAIN LEVEL 4 - 6 Last Admin: 08/04/17 01:08 Dose: 650 mg Apixaban (Eliquis -) 5 mg PO BID [facility] Last Admin: 08/03/17 22:17 Dose: 5 mg Insulin Aspart (Novolog Vial Sliding Scale -) 1 vial SQ BIDAC [facility] PRN Reason: Protocol Last Admin: 08/04/17 06:05 Dose: 4 units Metoprolol Tartrate (Lopressor -) 50 mg GT BID [facility] Last Admin: 08/03/17 22:17 Dose: 50 mg Tobramycin Sulfate (Tobrex Ophthalmic Solution -) 1 drop OD TID [facility] Last Admin: 08/04/17 05:09 Dose: 1 drop - Objective Vital Signs: Vital Signs Temperature 98.1 F 08/04/17 06:00 Pulse Rate 90 08/04/17 06:00 Respiratory Rate 21 08/04/17 06:35 Blood Pressure 111/61 08/04/17 06:00 O2 Sat by Pulse Oximetry (%) 100 08/03/17 21:00 Neck: Yes: Other (TRach) Cardiovascular: Yes: S1, S2 Respiratory: Yes: WNL, Regular, CTA Bilaterally Gastrointestinal: Yes: WNL, Normal Bowel Sounds, Soft. No: Tenderness, Tenderness, Epigastrium Edema: Yes Labs: CBC, BMP 08/03/17 07:50 INR, PTT INR 1.29 (0.82-1.09) H 07/31/17 05:41 Problem List - Problems (1) Condylomata acuminata in male Code(s): A63.0 - ANOGENITAL (VENEREAL) WARTS (2) Sepsis Code(s): A41.9 - SEPSIS, UNSPECIFIED ORGANISM Qualifiers: Sepsis type: sepsis due to unspecified organism Qualified Code(s): A41.9 - Sepsis, unspecified organism (3) UTI (urinary tract infection) Code(s): N39.0 - URINARY TRACT INFECTION, SITE NOT SPECIFIED Qualifiers: Urinary tract infection type: site unspecified Hematuria presence: without hematuria Qualified Code(s): N39.0 - Urinary tract infection, site not specified (4) Hepatitis C carrier Code(s): Z22.52 - (5) Mitral valve prolapse Code(s): I34.1 - NONRHEUMATIC MITRAL (VALVE) PROLAPSE (6) FUO (fever of unknown origin) Code(s): R50.9 - FEVER, UNSPECIFIED Assessment/Plan Microbiology 07/31/17 05:51 Urine - Urine - Catheterized Urine Culture - Final NO GROWTH OBTAINED 07/31/17 05:41 Blood - Peripheral Venous Blood Culture - Preliminary Staphylococcus Epidermidis 07/31/17 05:41 Blood - Peripheral Venous Blood Culture - Preliminary NO GROWTH OBTAINED AFTER 96 HOURS, INCUBATION TO CONTINUE FOR 1 DAYS. Laboratory Tests 08/03/17 08/03/17 08/03/17 07:50 07:50 07:50 WBC 13.1 H Hgb 8.5 L D Hct 25.1 L Plt Count 156 D ESR 119 H BUN Creatinine Total Bilirubin 0.3 D AST 53 H D ALT 57 D Alkaline Phosphatase 65 08/04/17 06:00 WBC Hgb Hct Plt Count ESR BUN Pending Creatinine Pending Total Bilirubin AST ALT Alkaline Phosphatase Assessment Fever unknown origin too many possible sources CT imaging left pleural effusion moderate also "duodenitis" and distended GB ESR very high CRP 15 Plan Reculture panculture 24 hours off antibiotics Ask Dr Sweeney feasibility of thoracentesis Sonogram GB GUNNAR Curiel MD
[2017-08-04 08:09] LABS: ANION GAP 5 (8-16); BLOOD UREA NITROGEN 21 mg/dL (7-18); CALCIUM 7.8 mg/dL (8.5-10.1); CHLORIDE 107 mmol/L (98-107); CO2 28 mmol/L (21-32); CREATININE 0.7 mg/dL (0.7-1.3); GLUCOSE,RANDOM 168 mg/dL (74-106); POTASSIUM 3.8 mmol/L (3.5-5.1); SODIUM 140 mmol/L (136-145)
[2017-08-04] MEDS: APIXABAN 5 MG TABLET PO SCH ×2 (10:55→21:29)
[2017-08-04] MEDS: METOPROLOL TARTRATE 50 MG TABLET (FP) GT SCH ×2 (10:55→21:29)
--- NOTE | 2017-08-04 12:59 | PN ---
Progress Note (short form) - Note Progress Note: PULMONARY AC mode of vent, 40% FiO2. Febrile 102 earlier/now afebrile Active Medications Acetaminophen (Tylenol -) 650 mg PO Q6H PRN PRN Reason: PAIN LEVEL 4 - 6 Last Admin: 08/03/17 01:54 Dose: 650 mg Apixaban (Eliquis -) 5 mg PO BID [facility] Last Admin: 08/03/17 09:03 Dose: 5 mg Insulin Aspart (Novolog Vial Sliding Scale -) 1 vial SQ BIDAC [facility] PRN Reason: Protocol Last Admin: 08/03/17 06:48 Dose: 4 units Metoprolol Tartrate (Lopressor -) 50 mg GT BID [facility] Last Admin: 08/03/17 10:37 Dose: 50 mg Potassium Chloride (Potassium Chloride Oral Liquid) 40 meq GT ONCE ONE Stop: 08/03/17 12:16 Tobramycin Sulfate (Tobrex Ophthalmic Solution -) 1 drop OD TID [facility] Last Admin: 08/03/17 06:47 Dose: 1 drop Constitutional: Yes: No Distress, vented Cardiovascular: Yes: Pulse Irregular Respiratory: Yes: Diminished, Mechanically Ventilated Gastrointestinal: Yes: Normal Bowel Sounds, Soft, Other (GT). No: Tenderness Edema: Yes Labs: NOTED (1) Anemia Code(s): D64.9 - ANEMIA, UNSPECIFIED (2) Chronic respiratory failure Code(s): J96.10 - CHRONIC RESPIRATORY FAILURE, UNSP W HYPOXIA OR HYPERCAPNIA Qualifiers: Respiratory failure complication: unspecified whether with hypoxia or hypercapnia Qualified Code(s): J96.10 - Chronic respiratory failure, unspecified whether with hypoxia or hypercapnia (3) Quadriplegia, functional Code(s): R53.2 - FUNCTIONAL QUADRIPLEGIA (4) Rapid atrial fibrillation Code(s): I48.91 - UNSPECIFIED ATRIAL FIBRILLATION (5) Sepsis Code(s): A41.9 - SEPSIS, UNSPECIFIED ORGANISM Qualifiers: Sepsis type: sepsis due to unspecified organism Qualified Code(s): A41.9 - Sepsis, unspecified organism (6) UTI (urinary tract infection) Code(s): N39.0 - URINARY TRACT INFECTION, SITE NOT SPECIFIED (7) Hepatitis C carrier Code(s): Z22.52 - (8) Rheumatic heart disease Code(s): I09.9 - RHEUMATIC HEART DISEASE, UNSPECIFIED (9) H/O typhoid fever Code(s): Z86.19 - PERSONAL HISTORY OF OTHER INFECTIOUS AND PARASITIC DISEASES IMP SEPSIS ETIOLOGY? CHRONIC RESPIRATORY FAILURE ON VENT SUPPORT AFIB ANEMIA H/O RHEUMATIC HEART DISEASE H/O TYPHOID HEP C ANEMIA PLAN ABX ON HOLD PER ID VENT SUPPORT ON AC MODE INHALED BRONCHODILATORS FOLLOW CULTURES RATE CONTROL PER CARDIOLOGY MONITOR H+H PLEURAL TAP WOULD BE EXTREMELY DIFFICULT Neeta REILLY MD I
--- NOTE | 2017-08-04 19:48 | PN ---
Progress Note (short form) - Note Progress Note: pt seen/ examined. Chart reviewed off abx per i/d having fever vent dependent poorly responsive Vital Signs Temp 100 F H 08/04/17 19:04 Pulse 95 H 08/04/17 19:04 Resp 28 H 08/04/17 18:38 BP 135/62 08/04/17 13:59 Pulse Ox 98 08/04/17 10:20 Intake & Output 08/03/17 08/04/17 08/04/17 23:59 11:59 23:59 Intake Total 1300 Output Total 500 500 300 Balance 800 -500 -300 Intake: IVPB 100 Tube Feeding 600 Tube Irrigant 600 Output: Urine 500 500 300 Supra Pubic Tube 500 500 300 Other: Voiding Method Indwelling Catheter Indwelling Catheter Bowel Movement No No Yes # Bowel Movements 1 Active Medications Acetaminophen (Tylenol -) 650 mg PO Q6H PRN PRN Reason: PAIN LEVEL 4 - 6 Last Admin: 08/04/17 01:08 Dose: 650 mg Apixaban (Eliquis -) 5 mg PO BID [facility] Last Admin: 08/04/17 10:55 Dose: 5 mg Insulin Aspart (Novolog Vial Sliding Scale -) 1 vial SQ BIDAC [facility] PRN Reason: Protocol Last Admin: 08/04/17 18:58 Dose: Not Given Metoprolol Tartrate (Lopressor -) 50 mg GT BID [facility] Last Admin: 08/04/17 10:55 Dose: 50 mg Tobramycin Sulfate (Tobrex Ophthalmic Solution -) 1 drop OD TID [facility] Last Admin: 08/04/17 14:59 Dose: 1 drop CBC, BMP 08/03/17 07:50 08/04/17 06:00 Microbiology 07/31/17 05:41 Blood Culture - Final Blood - Peripheral Venous Staphylococcus Epidermidis 07/31/17 05:41 Blood Culture - Preliminary Blood - Peripheral Venous NO GROWTH OBTAINED AFTER 96 HOURS, INCUBATION TO CONTINUE FOR 1 DAYS. Physical Constitutional: Yes: No Distress but poorly responsive Cardiovascular: Yes: Pulse Irregular Respiratory: Yes: Diminished, Mechanically Ventilated Gastrointestinal: Yes: Normal Bowel Sounds, Soft, Other (GT). No: Tenderness Edema: Yes Problem List - Problems (1) Rapid atrial fibrillation Code(s): I48.91 - UNSPECIFIED ATRIAL FIBRILLATION (2) Chronic respiratory failure Code(s): J96.10 - CHRONIC RESPIRATORY FAILURE, UNSP W HYPOXIA OR HYPERCAPNIA Qualifiers: Respiratory failure complication: unspecified whether with hypoxia or hypercapnia Qualified Code(s): J96.10 - Chronic respiratory failure, unspecified whether with hypoxia or hypercapnia (3) Quadriplegia, functional Code(s): R53.2 - FUNCTIONAL QUADRIPLEGIA (4) Sepsis Code(s): A41.9 - SEPSIS, UNSPECIFIED ORGANISM Qualifiers: Sepsis type: sepsis due to unspecified organism Qualified Code(s): A41.9 - Sepsis, unspecified organism (5) UTI (urinary tract infection) Code(s): N39.0 - URINARY TRACT INFECTION, SITE NOT SPECIFIED Qualifiers: Urinary tract infection type: site unspecified Hematuria presence: without hematuria Qualified Code(s): N39.0 - Urinary tract infection, site not specified Assessment/Plan Continue present care vent support send repeat cultures off abx GI consult for thickened duodenum Pt is DNR will follow
[2017-08-05] MEDS: ACETAMINOPHEN 325 MG TABLET (FP) PO PRN ×3 (00:13→20:36)
[2017-08-05] MEDS: TOBRAMYCIN 0.3% OPHTH SOLN 5 ML BOTTLE OD SCH ×3 (06:00→21:24)
[2017-08-05] MEDS: INSULIN SLIDING SCALE (NOVOLOG) 1 VIAL SQ SCH ×2 (06:00→16:52)
[2017-08-05 07:33] LABS: BASO % 0.4 % (0-2.0); EOS % 0.9 % (0-4.5); HEMATOCRIT 23.8 % (35.4-49); HEMOGLOBIN 8.2 GM/dL (11.7-16.9); LYMPH % 17.2 % (8-40); MCHC 34.6 g/dl (32.0-35.9); MEAN CELL VOLUME 98.2 fl (80-96); MEAN PLT VOLUME 10.1 fl (7.5-11.1); MONO % 7.6 % (3.8-10.2); NEUT % 73.9 % (42.8-82.8); PLATELET COUNT 175 K/MM3 (134-434); RBC 2.42 M/mm3 (4.00-5.60); RDW 15.4 % (11.9-15.9); WHITE BLOOD COUNT 11.5 K/mm3 (4.0-10.0)
--- NOTE | 2017-08-05 09:11 | PN ---
Progress Note (short form) - Note Progress Note: Overall condition same vent dependent poorly responsive Vital Signs Temp 98.8 F 08/05/17 05:10 Pulse 78 08/05/17 05:10 Resp 21 08/05/17 09:04 BP 101/62 08/05/17 05:10 Pulse Ox 98 08/04/17 10:20 Intake & Output 08/04/17 08/04/17 08/05/17 11:59 23:59 11:59 Intake Total 560 Output Total 500 500 400 Balance -500 -500 160 Weight 212 lb Intake: Tube Feeding 360 Tube Irrigant 200 Output: Urine 500 500 400 Supra Pubic Tube 500 500 400 Other: Voiding Method Indwelling Catheter Indwelling Catheter Indwelling Catheter Bowel Movement No Yes No # Bowel Movements 1 Weight Measurement Method Patient Lift Scale Active Medications Acetaminophen (Tylenol -) 650 mg PO Q6H PRN PRN Reason: PAIN LEVEL 4 - 6 Last Admin: 08/05/17 00:13 Dose: 650 mg Apixaban (Eliquis -) 5 mg PO BID [facility] Last Admin: 08/04/17 21:29 Dose: 5 mg Insulin Aspart (Novolog Vial Sliding Scale -) 1 vial SQ BIDAC [facility] PRN Reason: Protocol Last Admin: 08/05/17 06:00 Dose: Not Given Metoprolol Tartrate (Lopressor -) 50 mg GT BID [facility] Last Admin: 08/04/17 21:29 Dose: 50 mg Tobramycin Sulfate (Tobrex Ophthalmic Solution -) 1 drop OD TID [facility] Last Admin: 08/05/17 06:00 Dose: 1 drop CBC, BMP 08/05/17 06:30 08/04/17 06:00 Microbiology 07/31/17 05:41 Blood Culture - Final Blood - Peripheral Venous NO GROWTH AFTER 5 DAYS INCUBATION 07/31/17 05:41 Blood Culture - Final Blood - Peripheral Venous Staphylococcus Epidermidis Physical Constitutional: Yes: No Distress but poorly responsive Cardiovascular: Yes: Pulse Irregular Respiratory: Yes: Diminished, Mechanically Ventilated Gastrointestinal: Yes: Normal Bowel Sounds, Soft, Other (GT). No: Tenderness Edema: Yes Problem List - Problems (1) Rapid atrial fibrillation Code(s): I48.91 - UNSPECIFIED ATRIAL FIBRILLATION (2) Chronic respiratory failure Code(s): J96.10 - CHRONIC RESPIRATORY FAILURE, UNSP W HYPOXIA OR HYPERCAPNIA Qualifiers: Respiratory failure complication: unspecified whether with hypoxia or hypercapnia Qualified Code(s): J96.10 - Chronic respiratory failure, unspecified whether with hypoxia or hypercapnia (3) Quadriplegia, functional Code(s): R53.2 - FUNCTIONAL QUADRIPLEGIA (4) Sepsis Code(s): A41.9 - SEPSIS, UNSPECIFIED ORGANISM Qualifiers: Sepsis type: sepsis due to unspecified organism Qualified Code(s): A41.9 - Sepsis, unspecified organism (5) UTI (urinary tract infection) Code(s): N39.0 - URINARY TRACT INFECTION, SITE NOT SPECIFIED Qualifiers: Urinary tract infection type: site unspecified Hematuria presence: without hematuria Qualified Code(s): N39.0 - Urinary tract infection, site not specified Assessment/Plan Continue present care vent support f/u repeat cultures off abx GI consult for thickened duodenum will discuss with i/d Pt is DNR will follow
[2017-08-05] MEDS ORDERED: PT OWN MED DRAWER 7, Y5N ONE ×2 (09:43→20:33)
[2017-08-05] MEDS: APIXABAN 5 MG TABLET PO SCH ×2 (10:02→21:23)
[2017-08-05] MEDS: METOPROLOL TARTRATE 50 MG TABLET (FP) GT SCH ×2 (10:02→21:23)
--- NOTE | 2017-08-05 11:13 | PN ---
Progress Note, Physician Chief Complaint: ID Intermittent fever bascially FUO Unable to offer history as unresponsive - Current Medication List Current Medications: Active Medications Acetaminophen (Tylenol -) 650 mg PO Q6H PRN PRN Reason: PAIN LEVEL 4 - 6 Last Admin: 08/05/17 10:07 Dose: 650 mg Apixaban (Eliquis -) 5 mg PO BID [facility] Last Admin: 08/05/17 10:02 Dose: 5 mg Insulin Aspart (Novolog Vial Sliding Scale -) 1 vial SQ BIDAC [facility] PRN Reason: Protocol Last Admin: 08/05/17 06:00 Dose: Not Given Metoprolol Tartrate (Lopressor -) 50 mg GT BID [facility] Last Admin: 08/05/17 10:02 Dose: 50 mg Tobramycin Sulfate (Tobrex Ophthalmic Solution -) 1 drop OD TID [facility] Last Admin: 08/05/17 06:00 Dose: 1 drop - Objective Vital Signs: Vital Signs Temperature 100.6 F H 08/05/17 09:45 Pulse Rate 70 08/05/17 09:45 Respiratory Rate 16 08/05/17 09:45 Blood Pressure 111/58 08/05/17 09:45 O2 Sat by Pulse Oximetry (%) 98 08/04/17 10:20 Constitutional: Yes: No Distress HENT: Yes: Other (Trach) Cardiovascular: Yes: Regular Rate and Rhythm, S1, S2. No: Murmur Respiratory: Yes: WNL, Regular, CTA Bilaterally Gastrointestinal: Yes: Soft. No: Tenderness Labs: CBC, BMP 08/05/17 06:30 08/04/17 06:00 INR, PTT INR 1.29 (0.82-1.09) H 07/31/17 05:41 Problem List - Problems (1) Condylomata acuminata in male Code(s): A63.0 - ANOGENITAL (VENEREAL) WARTS (2) Sepsis Code(s): A41.9 - SEPSIS, UNSPECIFIED ORGANISM Qualifiers: Sepsis type: sepsis due to unspecified organism Qualified Code(s): A41.9 - Sepsis, unspecified organism (3) UTI (urinary tract infection) Code(s): N39.0 - URINARY TRACT INFECTION, SITE NOT SPECIFIED Qualifiers: Urinary tract infection type: site unspecified Hematuria presence: without hematuria Qualified Code(s): N39.0 - Urinary tract infection, site not specified (4) Hepatitis C carrier Code(s): Z22.52 - (5) Mitral valve prolapse Code(s): I34.1 - NONRHEUMATIC MITRAL (VALVE) PROLAPSE (6) FUO (fever of unknown origin) Code(s): R50.9 - FEVER, UNSPECIFIED Assessment/Plan Microbiology 07/31/17 05:51 Urine - Urine - Catheterized Urine Culture - Final NO GROWTH OBTAINED 07/31/17 05:41 Blood - Peripheral Venous Blood Culture - Final Staphylococcus Epidermidis 07/31/17 05:41 Blood - Peripheral Venous Blood Culture - Final NO GROWTH AFTER 5 DAYS INCUBATION Laboratory Tests 07/31/17 08/03/17 08/03/17 05:51 07:50 07:50 WBC Hgb Hct Plt Count ESR 119 H BUN Creatinine Ur Leukocyte Esterase 3+ H Urine WBC (Auto) 492 Urine RBC (Auto) 374 Rheumatoid Factor < 10.0 AMBAR Screen 08/04/17 08/04/17 08/05/17 06:00 06:00 06:30 WBC 11.5 H Hgb 8.2 L Hct 23.8 L Plt Count 175 ESR BUN 21 H Creatinine 0.7 Ur Leukocyte Esterase Urine WBC (Auto) Urine RBC (Auto) Rheumatoid Factor AMBAR Screen Pending Assessment FUO no clear source Chronic vent dependency Elevated ESR CRP OFf antibiotics Fever did not seem tro change with original Vancom and Zosyn so stopped to reassess Originally I had thought urinary source ( sevilla) Plan Await repeat c/s Further recommendations to followup Veena ROY
--- NOTE | 2017-08-05 12:00 | PN ---
Progress Note (short form) - Note Progress Note: PULMONARY Fevers persist. Vented, poorly responsive. Last Vital Signs Temp Pulse Resp BP Pulse Ox 100.6 F H 70 16 111/58 97 08/05/17 09:45 08/05/17 09:45 08/05/17 09:45 08/05/17 09:45 08/05/17 09:00 Gen: vented, poorly responsive Heart: RRR Lung: decreased breath sounds at the bases Abd: soft, nontender Ext: no edema CBC, BMP 08/05/17 06:30 08/04/17 06:00 Active Medications Acetaminophen (Tylenol -) 650 mg PO Q6H PRN PRN Reason: PAIN LEVEL 4 - 6 Last Admin: 08/05/17 10:07 Dose: 650 mg Apixaban (Eliquis -) 5 mg PO BID [facility] Last Admin: 08/05/17 10:02 Dose: 5 mg Insulin Aspart (Novolog Vial Sliding Scale -) 1 vial SQ BIDAC [facility] PRN Reason: Protocol Last Admin: 08/05/17 06:00 Dose: Not Given Metoprolol Tartrate (Lopressor -) 50 mg GT BID [facility] Last Admin: 08/05/17 10:02 Dose: 50 mg Tobramycin Sulfate (Tobrex Ophthalmic Solution -) 1 drop OD TID [facility] Last Admin: 08/05/17 06:00 Dose: 1 drop A/P UTI Sepsis Chronic Respiratory Failure Atrial Fibrillation DM Functional Quadriplegia - monitoring off antibiotics per ID - f/u cultures - on anticoagulation - poor candidate for weaning - enteral feeds
--- NOTE | 2017-08-05 14:12 | CON.GI ---
Consult Consult Specialty:: Gastroenterology ( covering for Dr. Phillips) Referred by:: Dr Danyelle Sheppard Reason for Consultation:: Duodenal inflammation on CT scan - History of Present Illness Chief Complaint: patient is currently unable to offer complaints History of Present Illness: 62M is transferred from [facility] with fever of [address] scan reveals significant thickening of the duodenal sweep. He has a feeding gastrostomy tube. No vomiting reported. Stomach is not distended on CT. I aspirated gastric contents and yielded no blood. group home lists a h/o GERD. No endoscopy records found. Progress noted form 2012 and 2013 reveal that the patient was in alcohol detox. - History Source History Provided By: Medical Record, Transfer Record Limitations to Obtaining History: Clinical Condition - Past Medical History Cardio/Vascular: Yes: AFIB (paroxysmal), HTN, Mitral Insufficiency (? rheumatic) Pulmonary: Yes: COPD (ventilator dependent with tracheostomy) Gastrointestinal: Yes: Constipation, GERD, Other (Feeding gastrostomy tube) Hepatobiliary: Yes: Cholelithiasis, Hepatitis C (by other's history) Renal/: Yes: Neurogenic Bladder (with suprapubic cystostomy) Heme/Onc: Yes: Anemia Infectious Disease: Yes: Other (genital condylomata, ? typhoid fever) Psych: Yes: Addictions (alcoholism) ENT: Yes: Other (dry eye syndrome) Endocrine: Yes: Hypothyroidism - Past Surgical History Additional Surgical History: Tracheostomy. Suprapubic cystostomy. Gastrostomy tbe - Alcohol/Substance Use Hx Alcohol Use: No - Smoking History Smoking history: Former smoker Have you smoked in the past 12 months: No If you are a former smoker, when did you quit?: 9 years ago Home Medications - Allergies Allergies/Adverse Reactions: Allergies Allergy/AdvReac Type Severity Reaction Status Date / Time No Known Allergies Allergy Verified 05/26/13 15:18 - Home Medications Home Medications: Ambulatory Orders Acetaminophen [Tylenol -] 500 mg GT Q6H PRN 07/31/17 Acetaminophen [Tylenol Extra Strength] 500 mg GT DAILY PRN 07/31/17 Albuterol Sulfate Inhaler - [Ventolin Hfa Inhaler -] 2 inh IH Q6H 07/31/17 Clotrimazole/Betamet Diprop [Lotrisone Cream (Small Tube)] 1 applic TP ASDIR Famotidine 20 mg GT DAILY 07/31/17 Heparin Sod,Porcine/0.9 % NaCl [Heparin 5,000 Unit/5 ml-Ns] 5,000 unit SQ Q8H Hypromellose 0.5% Opth Soln [Artificial Tears] 1 drop QID 07/31/17 Levothyroxine [Synthroid -] 25 mcg GT 0600 07/31/17 Metoprolol Succinate 25 mg GT BID 07/31/17 Mineral Oil/Petrolatum,White [Puralube Ophthalmic Ointment] 1 gm OU Q6H Sennosides [Senna] 8.8 mg GT DAILY 07/31/17 levoFLOXacin [Levaquin -] 500 mg GT DAILY 07/31/17 Family Disease History - Family Disease History Family History: Unable to Obtain Family Disease History: CA: Mother, Respiratory: Father (emphysema, alcohol), Other: Father Physical Exam-GI Vital Signs: Vital Signs Temperature 99.5 F 08/05/17 14:01 Pulse Rate 94 H 08/05/17 14:01 Respiratory Rate 20 08/05/17 14:01 Blood Pressure 106/58 08/05/17 14:01 O2 Sat by Pulse Oximetry (%) 97 08/05/17 09:00 CBC,CMP WBC 11.5 K/mm3 (4.0-10.0) H 08/05/17 06:30 Corrected WBC (auto) Cancelled 08/02/17 06:50 RBC 2.42 M/mm3 (4.00-5.60) L 08/05/17 06:30 Hgb 8.2 GM/dL (11.7-16.9) L 08/05/17 06:30 Hct 23.8 % (35.4-49) L 08/05/17 06:30 MCV 98.2 fl (80-96) H 08/05/17 06:30 MCH 34.0 pg (25.7-33.7) H 08/05/17 06:30 MCHC 34.6 g/dl (32.0-35.9) 08/05/17 06:30 RDW 15.4 % (11.9-15.9) 08/05/17 06:30 Plt Count 175 K/MM3 (134-434) 08/05/17 06:30 MPV 10.1 fl (7.5-11.1) 08/05/17 06:30 Neutrophils % 73.9 % (42.8-82.8) 08/05/17 06:30 Lymphocytes % 17.2 % (8-40) 08/05/17 06:30 Monocytes % 7.6 % (3.8-10.2) 08/05/17 06:30 Eosinophils % 0.9 % (0-4.5) D 08/05/17 06:30 Basophils % 0.4 % (0-2.0) 08/05/17 06:30 Nucleated RBC % Cancelled 08/02/17 06:50 Platelet Estimate Cancelled 08/02/17 06:50 Platelet Comment Cancelled 08/02/17 06:50 ESR 119 mm/hr (0-20) H 08/03/17 07:50 Sodium 140 mmol/L (136-145) 08/04/17 06:00 Potassium 3.8 mmol/L (3.5-5.1) 08/04/17 06:00 Chloride 107 mmol/L (98-107) 08/04/17 06:00 Carbon Dioxide 28 mmol/L (21-32) 08/04/17 06:00 Anion Gap 5 (8-16) L 08/04/17 06:00 BUN 21 mg/dL (7-18) H 08/04/17 06:00 Creatinine 0.7 mg/dL (0.7-1.3) 08/04/17 06:00 Creat Clearance w eGFR > 60 (>60) 08/03/17 07:50 POC Glucometer 158 UNITS (80-120) 08/05/17 05:52 Random Glucose 168 mg/dL (74-106) H 08/04/17 06:00 Lactic Acid 1.2 mmol/L (0.0-2.0) 08/01/17 06:00 Calcium 7.8 mg/dL (8.5-10.1) L 08/04/17 06:00 Total Bilirubin 0.3 mg/dL (0.2-1.0) D 08/03/17 07:50 AST 53 U/L (15-37) H D 08/03/17 07:50 ALT 57 U/L (12-78) D 08/03/17 07:50 Alkaline Phosphatase 65 U/L (45-117) 08/03/17 07:50 Creatine Kinase 160 IU/L (39-308) 08/01/17 06:00 Creatine Kinase Index 1.2 % (0.0-5.0) 08/01/17 06:00 CK-MB (CK-2) 1.99 ng/mL (0.5-3.6) 08/01/17 06:00 Troponin I 0.07 ng/ml (0.00-0.05) H 08/01/17 06:00 C-Reactive Protein 13.7 MG/DL (0.00-0.3) H 08/03/17 07:50 Total Protein 5.6 g/dl (6.4-8.2) L 08/03/17 07:50 Albumin 1.8 g/dl (3.4-5.0) L 08/03/17 07:50 TSH 2.72 uIU/ml (0.358-3.74) 07/31/17 20:15 Current Medications Generic Name Dose Route Start Last Admin Trade Name Freq PRN Reason Stop Dose Admin Acetaminophen 650 mg 07/31/17 13:44 08/05/17 10:07 Tylenol - PO 650 mg Q6H PRN Administration PAIN LEVEL 4 - 6 Apixaban 5 mg 08/02/17 22:00 08/05/17 10:02 Eliquis - PO 5 mg BID [facility] Administration Insulin Aspart 1 vial 07/31/17 17:15 08/05/17 06:00 Novolog Vial Sliding Scale - SQ Not Given BIDAC [facility] Protocol Metoprolol Tartrate 50 mg 08/01/17 11:16 08/05/17 10:02 Lopressor - GT 50 mg BID [facility] Administration Tobramycin Sulfate 1 drop 07/31/17 14:00 08/05/17 14:21 Tobrex Ophthalmic Solution - OD 1 drop TID [facility] Administration Constitutional: Yes: Other (not responsive) Eyes: Yes: Conjunctiva Clear HENT: Yes: Atraumatic Neck: Yes: Other (mature tracheostomy) Cardiovascular: Yes: Regular Rate and Rhythm Respiratory: Yes: CTA Bilaterally Gastrointestinal Inspection: Yes: Hernia (umbilical hernia reduced), Other ( indwelling LUQ feeding gastroscopy tube right suprapubic cystostomy tube) ...Auscultate: Yes: Normoactive Bowel Sounds ...Palpate: Yes: Soft, Other (nontender) ...Percussion: Yes: Tympanitic ...Rectal Exam: Yes: Guaiac Positive (loss brown guaiaic negative stool 2+ prostate) Genitourinary: Yes: Other (extensive genital condylomata) Edema: LUE: 1+ (brawny), RUE: 1+ (brawny) Neurological: Yes: Unresponsive Labs: CBC, BMP 08/05/17 06:30 08/04/17 06:00 INR, PTT INR 1.29 (0.82-1.09) H 07/31/17 05:41 Imaging - Results Cat Scan: Report Reviewed (Eugenio Love Name: [facility] Phys: Robert Curiel MD; Veronique Giron MD : 1955 Age : 62 Sex: M [facility] Acct: [id number] Loc: [address] Exam Date: 08/03/17 Status: [place] [address] Unit Number : [id number] EXAM#: TYPE/EXAM: RESULT: [id number] CT/ABDOMEN PELVIS CT W/O CONTR [id number] CT/CHEST CT WITHOUT CONTRAST History: Fever of unknown origin CT scan of the chest, abdomen and pelvis following oral contrast administration only. Coronal and sagittal reformatted images were obtained. Compared to prior chest x-ray dated 07/31/2017 A tracheostomy tube is present in satisfactory position. The right lung is clear. There is moderate left pleural effusion with consolidation/atelectasis in the dependent portion of the lung, mainly posterior segment of the left lower lobe. The heart is within normal limits in size. Pleural calcifications are present. Multiple mediastinal and aortopulmonary window lymph nodes are present with the largest left paratracheal lymph node measuring 1.6 x 1.2 cm. The right hilum centimeters enlarged. Evaluation of the left hilum is limited due to surrounding consolidation/airspace disease along its inferior margin. There is a gastrostomy tube within a collapsed stomach and hence its wall could not be adequately evaluated on this exam. There is significant thickening of the descending and proximal third portion of the duodenum with stranding of the surrounding mesentery consistent likely representing duodenitis, anterolaterally versus infectious. An infiltrative process cannot be excluded. Gallbladder is slightly over distended measuring 9 cm in sagittal length with questionable stone at the level of the gallbladder fundus. Evaluation of the liver, spleen, pancreas and both adrenal glands appear unremarkable. Partially exophytic left renal simple cyst measuring 2.5 cm. There is no evidence of small bowel obstruction. Normal-appearing terminal ileum and likely partially visualized normal-appearing appendix. Note is made of a small fat-containing umbilical hernia. Normal stool burden in the colon without gross wall thickening. A suprapubic pigtail catheter seen within the decompressed urinary bladder. Perirectal and pericecal fat is clear There is subcutaneous edema in both flanks and at the level of the pelvis. IMPRESSION: Moderate left pleural effusion with compressive atelectasis and consolidation dependent portion of the left lung, in particular posterior segment of the left lower lobe suggestive of pneumonia. Slightly enlarged mediastinal and aortopulmonary window lymph nodes with the largest measuring 1.6 x 1.2 cm. In the abdomen and pelvis, a gastrostomy tube and cystostomy tube are present in satisfactory position. Over distended gallbladder with questionable intraluminal stones for which correlation with ultrasound is needed There is significant thickening of the descending portion of the duodenum as well as the proximal third portion with stranding of the surrounding mesentery/fat suggestive of duodenitis, inflammatory versus infectious. Cannot rule out an infiltrative process. Further evaluation is recommended There is no evidence of small bowel obstruction Subcutaneous edema and both flanks and in the pelvis, suggestive of anasarca. Reported By: Vlad Shea MD [id number] Technologist: Noam Cornejo Transcribed Date/Time: 08/03/17 132 Learning Program Manager: Vlad Shea Printed Date/Time: By: Signed by: Vlad Shea Signed on: 03-Aug-2017 13:28) Problem List - Problems (1) Duodenum disorder Assessment/Plan: The marked duodenal wall thickening raises suspicion of malignant process and will need an endoscopic evaluation when stable. Extrinsic invasion cannot be excluded. Crohn's Disease appears less likely. Peptic or infectious ulceration needs otbe excluded. His stool is oddly enough guaiac negative. Will empirically treat with PPI and screen for pathogens. Dr. Dominguez will return . Code(s): K31.9 - DISEASE OF STOMACH AND DUODENUM, UNSPECIFIED (2) Alcohol dependence Assessment/Plan: Given his h/o alcohol withdrawal and hypoalbuminemia with elevated liver enzymes alcoholic cirrhosis is suspected and may account for his elevated INR. I would have expected a lower platelet count. Code(s): F10.20 - ALCOHOL DEPENDENCE, UNCOMPLICATED (3) Hepatitis C carrier Assessment/Plan: Will confirm by PCR Code(s): Z22.52 -
--- NOTE | 2017-08-05 18:02 | PN ---
Progress Note, Physician History of Present Illness: Fevers improving, tachycardic. - Current Medication List Current Medications: Active Medications Acetaminophen (Tylenol -) 650 mg PO Q6H PRN PRN Reason: PAIN LEVEL 4 - 6 Last Admin: 08/05/17 10:07 Dose: 650 mg Apixaban (Eliquis -) 5 mg PO BID [facility] Last Admin: 08/05/17 10:02 Dose: 5 mg Insulin Aspart (Novolog Vial Sliding Scale -) 1 vial SQ BIDAC [facility] PRN Reason: Protocol Last Admin: 08/05/17 16:52 Dose: Not Given Metoprolol Tartrate (Lopressor -) 50 mg GT BID [facility] Last Admin: 08/05/17 10:02 Dose: 50 mg Pantoprazole Sodium (Protonix Iv) 40 mg IVPUSH BID [facility] Tobramycin Sulfate (Tobrex Ophthalmic Solution -) 1 drop OD TID [facility] Last Admin: 08/05/17 14:21 Dose: 1 drop - Objective Vital Signs: Vital Signs Temperature 99.5 F 08/05/17 14:01 Pulse Rate 94 H 08/05/17 14:01 Respiratory Rate 20 08/05/17 14:01 Blood Pressure 106/58 08/05/17 14:01 O2 Sat by Pulse Oximetry (%) 97 08/05/17 09:00 Cardiovascular: Yes: Pulse Irregular Respiratory: Yes: Mechanically Ventilated, Rhonchi Gastrointestinal: Yes: Normal Bowel Sounds, Soft Edema: No Labs: CBC, BMP 08/05/17 06:30 08/04/17 06:00 INR, PTT INR 1.29 (0.82-1.09) H 07/31/17 05:41 Problem List - Problems (1) Chronic respiratory failure Code(s): J96.10 - CHRONIC RESPIRATORY FAILURE, UNSP W HYPOXIA OR HYPERCAPNIA Qualifiers: Respiratory failure complication: unspecified whether with hypoxia or hypercapnia Qualified Code(s): J96.10 - Chronic respiratory failure, unspecified whether with hypoxia or hypercapnia (2) Condylomata acuminata in male Code(s): A63.0 - ANOGENITAL (VENEREAL) WARTS (3) Quadriplegia, functional Code(s): R53.2 - FUNCTIONAL QUADRIPLEGIA (4) Rapid atrial fibrillation Code(s): I48.91 - UNSPECIFIED ATRIAL FIBRILLATION (5) Sepsis Code(s): A41.9 - SEPSIS, UNSPECIFIED ORGANISM Qualifiers: Sepsis type: sepsis due to unspecified organism Qualified Code(s): A41.9 - Sepsis, unspecified organism (6) Mitral valve prolapse Code(s): I34.1 - NONRHEUMATIC MITRAL (VALVE) PROLAPSE Assessment/Plan 08/01/2017 Echo: Normal biventricular size and fxn 1. Rapid atrial fibrillation [id number] 2. Chronic respiratory failure post trach and peg 3. Sepsis source 4. Genital condylomata 5. Demand ischemia 6. Functional quadriplegia 7. Type 2 DM 8. Anemia of chronic disease 9. Duodenal wall thickening r/o malignancy P:1. Trops have plateaued, Continue Lopressor 50 bid for rate-control, Eliquis 5 bid 2. Monitor off abx per ID, f/u C&S, 3. Chronic AC mode vent support 4. Enteral feeds 5. Endoscopy once stable
[2017-08-05] MEDS: PANTOPRAZOLE SODIUM 40 MG VIAL IVPUSH SCH (21:23)
[2017-08-06] MEDS ORDERED: PT OWN MED DRAWER 7, Y5N ONE ×5 (05:46→21:31)
[2017-08-06] MEDS: TOBRAMYCIN 0.3% OPHTH SOLN 5 ML BOTTLE OD SCH ×3 (05:48→21:35)
[2017-08-06] MEDS: INSULIN SLIDING SCALE (NOVOLOG) 1 VIAL SQ SCH ×2 (06:54→17:14)
[2017-08-06 07:53] LABS: ALBUMIN 1.8 g/dl (3.4-5.0)
[2017-08-06 07:56] LABS: ALK PHOS 97 U/L (45-117); AMYLASE 30 U/L (25-115); BILIRUBIN,DIRECT < 0.2 mg/dL (0.0-0.2); BILIRUBIN,TOTAL 0.2 mg/dL (0.2-1.0); SGOT/AST 158 U/L (15-37); SGPT/ALT 232 U/L (12-78)
[2017-08-06 08:49] LABS: LIPASE 205 U/L (73-393)
[2017-08-06] MEDS: PANTOPRAZOLE SODIUM 40 MG VIAL IVPUSH SCH ×2 (09:55→21:35)
[2017-08-06] MEDS: APIXABAN 5 MG TABLET PO SCH ×2 (09:55→21:34)
[2017-08-06] MEDS: ACETAMINOPHEN 325 MG TABLET (FP) PO PRN ×2 (09:55→21:34)
[2017-08-06] MEDS: METOPROLOL TARTRATE 50 MG TABLET (FP) GT SCH ×2 (09:56→21:34)
--- NOTE | 2017-08-06 12:48 | PN ---
Progress Note (short form) - Note Progress Note: PULMONARY Low grade temps. Vented, poorly responsive. Last Vital Signs Temp Pulse Resp BP Pulse Ox 100 F H 88 25 H 111/57 100 08/06/17 09:00 08/06/17 10:00 08/06/17 12:03 08/06/17 10:00 08/06/17 09:00 Gen: vented, poorly responsive Heart: RRR Lung: decreased breath sounds at the bases Abd: soft, nontender Ext: no edema CBC, BMP 08/05/17 06:30 08/04/17 06:00 Active Medications Acetaminophen (Tylenol -) 650 mg PO Q6H PRN PRN Reason: PAIN LEVEL 4 - 6 Last Admin: 08/06/17 09:55 Dose: 650 mg Apixaban (Eliquis -) 5 mg PO BID [facility] Last Admin: 08/06/17 09:55 Dose: 5 mg Insulin Aspart (Novolog Vial Sliding Scale -) 1 vial SQ BIDAC [facility] PRN Reason: Protocol Last Admin: 08/06/17 06:54 Dose: Not Given Metoprolol Tartrate (Lopressor -) 50 mg GT BID [facility] Last Admin: 08/06/17 09:56 Dose: 50 mg Pantoprazole Sodium (Protonix Iv) 40 mg IVPUSH BID [facility] Last Admin: 08/06/17 09:55 Dose: 40 mg Tobramycin Sulfate (Tobrex Ophthalmic Solution -) 1 drop OD TID [facility] Last Admin: 08/06/17 05:48 Dose: 1 drop A/P UTI Sepsis Chronic Respiratory Failure Atrial Fibrillation DM Functional Quadriplegia - monitoring off antibiotics per ID - f/u cultures - on anticoagulation - poor candidate for weaning - enteral feeds
--- NOTE | 2017-08-06 12:51 | PN ---
GI Progress Note Subjective: GI NOte ( covering Dr Dominguez): Please see amended consultation note. A friend arrived today who informs me that Tate has been nonresponsive since anoxic brain injury during a cardiopulmonary arrest in 05/28. Sonogram reveals a large gallstones but no ductal dilation or evidence for cholecystitis. C diff is positive but does not appear active. He had only one BM overnight. - Objective Vital Signs: Vital Signs Temperature 100 F H 08/06/17 09:00 Pulse Rate 88 08/06/17 10:00 Respiratory Rate 25 H 08/06/17 12:03 Blood Pressure 111/57 08/06/17 10:00 O2 Sat by Pulse Oximetry (%) 100 08/06/17 09:00 Laboratory Tests 08/02/17 08/04/17 08/05/17 09:40 06:00 06:30 WBC 15.3 H 11.5 H Hgb 9.7 L D 8.2 L Total Bilirubin Direct Bilirubin AST ALT Alkaline Phosphatase AMBAR Screen Negative 08/06/17 06:27 WBC Hgb Total Bilirubin 0.2 D Direct Bilirubin < 0.2 AST 158 H D ALT 232 H D Alkaline Phosphatase 97 D AMBAR Screen ...Auscultate: Yes: Normoactive Bowel Sounds ...Palpate: Yes: Soft, Other (nontender) Neurological: Yes: Unresponsive Labs: CBC, BMP 08/05/17 06:30 08/04/17 06:00 INR, PTT INR 1.29 (0.82-1.09) H 07/31/17 05:41 Problem List - Problems (1) Duodenum disorder Assessment/Plan: Continue empiric PPI. Will discuss situation with Dr. Dominguez who will return and assume GI care of this patient. Code(s): K31.9 - DISEASE OF STOMACH AND DUODENUM, UNSPECIFIED (2) Alcohol dependence Assessment/Plan: Given the conversation with his friend alcohol cannot be implicated in his liver disease. Code(s): F10.20 - ALCOHOL DEPENDENCE, UNCOMPLICATED (3) Hepatitis C carrier Assessment/Plan: Chronic hepatitis C appears to be the etiology for the elevated transaminases and INR. The liver however does not appear cirrhotic on sonography. No tumors are seen. Code(s): Z22.52 -
--- NOTE | 2017-08-06 13:56 | PN ---
Progress Note (short form) - Note Progress Note: Pt seen/ examined Overall condition same vent dependent poorly responsive. Vital Signs Period Temp Pulse Resp BP Sys/Bhardwaj Pulse Ox Last 24 Hr 98 F-100.6 F 73-103 14-25 96-147/57-78 98-100 Active Medications Acetaminophen (Tylenol -) 650 mg PO Q6H PRN PRN Reason: PAIN LEVEL 4 - 6 Last Admin: 08/05/17 00:13 Dose: 650 mg Apixaban (Eliquis -) 5 mg PO BID [facility] Last Admin: 08/04/17 21:29 Dose: 5 mg Insulin Aspart (Novolog Vial Sliding Scale -) 1 vial SQ BIDAC [facility] PRN Reason: Protocol Last Admin: 08/05/17 06:00 Dose: Not Given Metoprolol Tartrate (Lopressor -) 50 mg GT BID [facility] Last Admin: 08/04/17 21:29 Dose: 50 mg Tobramycin Sulfate (Tobrex Ophthalmic Solution -) 1 drop OD TID [facility] Last Admin: 08/05/17 06:00 Dose: 1 drop CBC, BMP 08/05/17 06:30 08/04/17 06:00 Microbiology 08/05/17 16:00 Clostridium difficile Antigen (MINERVA) - Final Stool Clostridium difficile Toxin Assay - Final 08/05/17 12:40 Urine Culture - Final Urine - Urine Suprapubic NO GROWTH OBTAINED 08/04/17 20:00 Blood Culture - Preliminary Blood - Peripheral Venous NO GROWTH OBTAINED AFTER 24 HOURS, INCUBATION TO CONTINUE FOR 4 DAYS. 08/04/17 20:00 Blood Culture - Preliminary Blood - Peripheral Venous NO GROWTH OBTAINED AFTER 24 HOURS, INCUBATION TO CONTINUE FOR 4 DAYS. Physical Constitutional: Yes: No Distress but poorly responsive Cardiovascular: Yes: Pulse Irregular Respiratory: Yes: Diminished, Mechanically Ventilated Gastrointestinal: Yes: Normal Bowel Sounds, Soft, Other (GT). No: Tenderness Edema: Yes Problem List - Problems (1) Rapid atrial fibrillation Code(s): I48.91 - UNSPECIFIED ATRIAL FIBRILLATION (2) Chronic respiratory failure Code(s): J96.10 - CHRONIC RESPIRATORY FAILURE, UNSP W HYPOXIA OR HYPERCAPNIA Qualifiers: Respiratory failure complication: unspecified whether with hypoxia or hypercapnia Qualified Code(s): J96.10 - Chronic respiratory failure, unspecified whether with hypoxia or hypercapnia (3) Quadriplegia, functional Code(s): R53.2 - FUNCTIONAL QUADRIPLEGIA (4) Sepsis Code(s): A41.9 - SEPSIS, UNSPECIFIED ORGANISM Qualifiers: Sepsis type: sepsis due to unspecified organism Qualified Code(s): A41.9 - Sepsis, unspecified organism (5) UTI (urinary tract infection) Code(s): N39.0 - URINARY TRACT INFECTION, SITE NOT SPECIFIED Qualifiers: Urinary tract infection type: site unspecified Hematuria presence: without hematuria Qualified Code(s): N39.0 - Urinary tract infection, site not specified Assessment/Plan Overall condition same h/o cardiac arrest - 05/28-- Anoxic brain injury elevated lfts Continue present care vent support f/u repeat cultures off abx GI f/u noted overall condition poor. Pt is DNR will follow.
--- NOTE | 2017-08-06 14:11 | PN ---
Progress Note, Physician History of Present Illness: Fevers improving, tachycardic, unresponsive on vent. - Current Medication List Current Medications: Active Medications Acetaminophen (Tylenol -) 650 mg PO Q6H PRN PRN Reason: PAIN LEVEL 4 - 6 Last Admin: 08/06/17 09:55 Dose: 650 mg Apixaban (Eliquis -) 5 mg PO BID [facility] Last Admin: 08/06/17 09:55 Dose: 5 mg Insulin Aspart (Novolog Vial Sliding Scale -) 1 vial SQ BIDAC [facility] PRN Reason: Protocol Last Admin: 08/06/17 06:54 Dose: Not Given Metoprolol Tartrate (Lopressor -) 50 mg GT BID [facility] Last Admin: 08/06/17 09:56 Dose: 50 mg Pantoprazole Sodium (Protonix Iv) 40 mg IVPUSH BID [facility] Last Admin: 08/06/17 09:55 Dose: 40 mg Tobramycin Sulfate (Tobrex Ophthalmic Solution -) 1 drop OD TID [facility] Last Admin: 08/06/17 13:49 Dose: 1 drop - Objective Vital Signs: Vital Signs Temperature 98.6 F 08/06/17 13:39 Pulse Rate 103 H 08/06/17 13:39 Respiratory Rate 16 08/06/17 13:39 Blood Pressure 96/66 08/06/17 13:39 O2 Sat by Pulse Oximetry (%) 100 08/06/17 09:00 Cardiovascular: Yes: Pulse Irregular Respiratory: Yes: Mechanically Ventilated, Rhonchi Gastrointestinal: Yes: Normal Bowel Sounds, Soft Edema: No Labs: CBC, BMP 08/05/17 06:30 08/04/17 06:00 INR, PTT INR 1.29 (0.82-1.09) H 07/31/17 05:41 - ....Imaging Ultrasound: Report Reviewed (Large 2.5 cm gallstone without cholecystitis) Problem List - Problems (1) Chronic respiratory failure Code(s): J96.10 - CHRONIC RESPIRATORY FAILURE, UNSP W HYPOXIA OR HYPERCAPNIA Qualifiers: Respiratory failure complication: unspecified whether with hypoxia or hypercapnia Qualified Code(s): J96.10 - Chronic respiratory failure, unspecified whether with hypoxia or hypercapnia (2) Condylomata acuminata in male Code(s): A63.0 - ANOGENITAL (VENEREAL) WARTS (3) Quadriplegia, functional Code(s): R53.2 - FUNCTIONAL QUADRIPLEGIA (4) Rapid atrial fibrillation Code(s): I48.91 - UNSPECIFIED ATRIAL FIBRILLATION (5) Sepsis Code(s): A41.9 - SEPSIS, UNSPECIFIED ORGANISM Qualifiers: Sepsis type: sepsis due to unspecified organism Qualified Code(s): A41.9 - Sepsis, unspecified organism (6) Mitral valve prolapse Code(s): I34.1 - NONRHEUMATIC MITRAL (VALVE) PROLAPSE Assessment/Plan 08/01/2017 Echo: Normal biventricular size and fxn 1. Rapid atrial fibrillation [id number] 2. Chronic respiratory failure anoxic brain injury post cardiac arrest and post trach and peg 3. Sepsis source 4. Genital condylomata 5. Demand ischemia 6. Functional quadriplegia 7. Type 2 DM 8. Anemia of chronic disease 9. Duodenal wall thickening r/o malignancy P:1. Trops have plateaued, Continue Lopressor 50 bid for rate-control, Eliquis 5 bid 2. Monitor off abx per ID, f/u C&S, 3. Chronic AC mode vent support 4. Enteral feeds
[2017-08-07] MEDS: TOBRAMYCIN 0.3% OPHTH SOLN 5 ML BOTTLE OD SCH ×3 (05:47→22:48)
[2017-08-07] MEDS ORDERED: PT OWN MED DRAWER 7, Y5N ONE (06:42)
[2017-08-07] MEDS: INSULIN SLIDING SCALE (NOVOLOG) 1 VIAL SQ SCH ×2 (06:47→16:48)
[2017-08-07 06:57] LABS: BASO % 0.6 % (0-2.0); HEMATOCRIT 21.6 % (35.4-49); HEMOGLOBIN 7.5 GM/dL (11.7-16.9); LYMPH % 19.2 % (8-40); MCH 34.6 pg (25.7-33.7); MEAN CELL VOLUME 98.8 fl (80-96); MEAN PLT VOLUME 9.6 fl (7.5-11.1); MONO % 7.5 % (3.8-10.2); NEUT % 67.7 % (42.8-82.8); PLATELET COUNT 238 K/MM3 (134-434); RBC 2.18 M/mm3 (4.00-5.60); RDW 15.3 % (11.9-15.9)
[2017-08-07 08:02] LABS: ALBUMIN 1.8 g/dl (3.4-5.0); ANION GAP 6 (8-16); BLOOD UREA NITROGEN 20 mg/dL (7-18); CALCIUM 7.7 mg/dL (8.5-10.1); CHLORIDE 107 mmol/L (98-107); CO2 26 mmol/L (21-32); GLUCOSE,RANDOM 171 mg/dL (74-106); POTASSIUM 3.8 mmol/L (3.5-5.1); SGPT/ALT 218 U/L (12-78); SODIUM 139 mmol/L (136-145)
[2017-08-07 08:04] LABS: ALK PHOS 82 U/L (45-117); BILIRUBIN,TOTAL 0.2 mg/dL (0.2-1.0); CREATININE 0.7 mg/dL (0.7-1.3); SGOT/AST 107 U/L (15-37); TOT PROT 5.6 g/dl (6.4-8.2)
--- NOTE | 2017-08-07 09:48 | PN ---
GI Progress Note Subjective: No acute events No overt bleeding 2 soft BM's per day. No marcela diarrhea - Objective Vital Signs: Vital Signs Temperature 98.9 F 08/07/17 05:15 Pulse Rate 105 H 08/07/17 05:15 Respiratory Rate 18 08/07/17 06:43 Blood Pressure 101/64 08/07/17 05:15 O2 Sat by Pulse Oximetry (%) 100 08/06/17 21:00 Constitutional: Calm Eyes: No: Sclera Icterus Cardiovascular: Yes: Tachycardia, Pulse Irregular Respiratory: Yes: Diminished (At bases bilaterally, poor insp effort) Gastrointestinal Inspection: Yes: Other (G-Tube in left upper abdomen, suprapubic catherter). No: Distention ...Auscultate: Yes: Normoactive Bowel Sounds ...Palpate: No: Hepatomegaly, Tenderness (No grimacing or guarding upon palpation) ...Percussion: No: Tympanitic Extremities: Yes: Other (B/L Chronic stasis changes) Neurological: Yes: Other (Awake, non-verbal) Labs: CBC, BMP 08/07/17 06:18 08/07/17 06:18 INR, PTT INR 1.29 (0.82-1.09) H 07/31/17 05:41 - ....Imaging Ultrasound: Report Reviewed (Abd US: 2.5cm gallstone, no GB wall thickening or pericholecystic fluid) Problem List - Problems (1) Duodenum disorder Assessment/Plan: Noted thickening of duodenum on CT scan: Discussed finding w/ Mr. Wagoner's Niece/NOK Belén Mayer. Explained that the cuase of this finding is unclear as to the cause of this finding. ? PUD, duodenitis, or infiltrative process. I explained that once mecially cleared and with eliquis held for 2 days, to evaluate further, direct visualization with upper endoscopy could be undertaken. We discussed potential risks of the procedure like but not limited to bleeding, perforation requiring surgery to repair, infection and sedation medication effects all of which coiuld be potentially life threatening. She would like to think about this option right now For now, continue PPI BID for 1 week followed by once daily Monitor for any overt GI bleeding Code(s): K31.9 - DISEASE OF STOMACH AND DUODENUM, UNSPECIFIED (2) Transaminitis Assessment/Plan: Rise during hospitalization. ? medication related. No Tenderness to palpation in the RUQ or US findings to suggest acute cholecystitis Improving trend currently Avid hepatotoxic agents Code(s): R74.0 - NONSPEC ELEV OF LEVELS OF TRANSAMNS & LACTIC ACID DEHYDRGNSE
[2017-08-07] MEDS: APIXABAN 5 MG TABLET PO SCH ×2 (10:50→22:48)
[2017-08-07] MEDS: METOPROLOL TARTRATE 50 MG TABLET (FP) GT SCH ×2 (10:50→22:48)
[2017-08-07] MEDS: PANTOPRAZOLE SODIUM 40 MG VIAL IVPUSH SCH ×2 (10:50→21:20)
--- NOTE | 2017-08-07 11:35 | PN ---
Progress Note (short form) - Note Progress Note: patient seen and examined. continue to have fever All follow-ups noted. overall condition same No diarrhea C. difficile antigen positive but toxin negative Of antibiotics Discussed with Dr. Conrad also today GI follow-up noted LFTs trending down Decreasing hemoglobin. Patient poorly responsive Vital Signs Temp 99.8 F H 08/07/17 09:30 Pulse 77 08/07/17 09:57 Resp 22 08/07/17 09:57 BP 110/66 08/07/17 09:30 Pulse Ox 98 08/07/17 09:57 Intake & Output 08/06/17 08/06/17 08/07/17 11:59 23:59 11:59 Intake Total 100 1200 1200 Output Total 500 500 300 Balance -400 700 900 Intake: Tube Feeding 900 840 Tube Irrigant 100 300 360 Output: Urine 500 500 300 Supra Pubic Tube 500 500 300 Other: Voiding Method Indwelling Catheter Indwelling Catheter Incontinent Bowel Movement Yes: small No No # Bowel Movements 1 Active Medications Apixaban (Eliquis -) 5 mg PO BID [facility] Last Admin: 08/07/17 10:50 Dose: 5 mg Insulin Aspart (Novolog Vial Sliding Scale -) 1 vial SQ BIDAC [facility] PRN Reason: Protocol Last Admin: 08/07/17 06:47 Dose: Not Given Metoprolol Tartrate (Lopressor -) 50 mg GT BID [facility] Last Admin: 08/07/17 10:50 Dose: 50 mg Pantoprazole Sodium (Protonix Iv) 40 mg IVPUSH BID [facility] Last Admin: 08/07/17 10:50 Dose: 40 mg Tobramycin Sulfate (Tobrex Ophthalmic Solution -) 1 drop OD TID [facility] Last Admin: 08/07/17 05:47 Dose: 1 drop CBC, BMP 08/07/17 06:18 08/07/17 06:18 Microbiology 08/05/17 16:00 Salmonella/Shigella Culture - Preliminary Stool NO ENTERIC PATHOGENS, 24 HOURS, ON PRIMARY PLATES Yersinia Culture - Preliminary NO ENTERIC PATHOGENS, 24 HOURS, ON PRIMARY PLATES Vibrio Culture - Final NO GROWTH OF VIBRIO SPECIES OBTAINED Escherichia coli 0157 Culture - Final NO GROWTH OF E COLI 0157 OBTAINED 08/05/17 01:11 Gram Stain - Final Sputum - Endotrachea Suction/Ventilator Sputum Culture - Preliminary Pseudomonas Species 08/04/17 20:00 Blood Culture - Preliminary Blood - Peripheral Venous NO GROWTH OBTAINED AFTER 48 HOURS, INCUBATION TO CONTINUE FOR 3 DAYS. 08/04/17 20:00 Blood Culture - Preliminary Blood - Peripheral Venous NO GROWTH OBTAINED AFTER 48 HOURS, INCUBATION TO CONTINUE FOR 3 DAYS. 08/05/17 16:00 Gram Stain - Final Stool 08/05/17 16:00 Clostridium difficile Antigen (MINERVA) - Final Stool Clostridium difficile Toxin Assay - Final 08/05/17 12:40 Urine Culture - Final Urine - Urine Suprapubic NO GROWTH OBTAINED Physical Constitutional: Yes: No Distress but poorly responsive Cardiovascular: Yes: Pulse Irregular Respiratory: Yes: Diminished, Mechanically Ventilated Gastrointestinal: Yes: Normal Bowel Sounds, Soft, Other (GT). No: Tenderness Edema: Yes Problem List - Problems (1) Rapid atrial fibrillation Code(s): I48.91 - UNSPECIFIED ATRIAL FIBRILLATION (2) Chronic respiratory failure Code(s): J96.10 - CHRONIC RESPIRATORY FAILURE, UNSP W HYPOXIA OR HYPERCAPNIA Qualifiers: Respiratory failure complication: unspecified whether with hypoxia or hypercapnia Qualified Code(s): J96.10 - Chronic respiratory failure, unspecified whether with hypoxia or hypercapnia (3) Quadriplegia, functional Code(s): R53.2 - FUNCTIONAL QUADRIPLEGIA (4) Sepsis Code(s): A41.9 - SEPSIS, UNSPECIFIED ORGANISM Qualifiers: Sepsis type: sepsis due to unspecified organism Qualified Code(s): A41.9 - Sepsis, unspecified organism (5) UTI (urinary tract infection) Code(s): N39.0 - URINARY TRACT INFECTION, SITE NOT SPECIFIED Qualifiers: Urinary tract infection type: site unspecified Hematuria presence: without hematuria Qualified Code(s): N39.0 - Urinary tract infection, site not specified Assessment/Plan Overall condition same h/o cardiac arrest - 05/28-- Anoxic brain injury elevated lfts--trending down Continue present care vent support f/u repeat cultures off abx GI f/u noted. we will transfuse today Monitor labs. overall condition poor. Pt is DNR will follow.
--- NOTE | 2017-08-07 11:50 | PN ---
Progress Note, Physician History of Present Illness: Not responsive No acute distress Low grade temps noted WBC WNL C diff Ag + but no diarrhea per staff Off antibiotics - Current Medication List Current Medications: Active Medications Apixaban (Eliquis -) 5 mg PO BID [facility] Last Admin: 08/07/17 10:50 Dose: 5 mg Insulin Aspart (Novolog Vial Sliding Scale -) 1 vial SQ BIDAC [facility] PRN Reason: Protocol Last Admin: 08/07/17 06:47 Dose: Not Given Metoprolol Tartrate (Lopressor -) 50 mg GT BID [facility] Last Admin: 08/07/17 10:50 Dose: 50 mg Pantoprazole Sodium (Protonix Iv) 40 mg IVPUSH BID [facility] Last Admin: 08/07/17 10:50 Dose: 40 mg Tobramycin Sulfate (Tobrex Ophthalmic Solution -) 1 drop OD TID [facility] Last Admin: 08/07/17 05:47 Dose: 1 drop - Objective Vital Signs: Vital Signs Temperature 99.8 F H 08/07/17 09:30 Pulse Rate 77 08/07/17 09:57 Respiratory Rate 22 08/07/17 09:57 Blood Pressure 110/66 08/07/17 09:30 O2 Sat by Pulse Oximetry (%) 98 08/07/17 09:57 Constitutional: Yes: No Distress Cardiovascular: Yes: Regular Rate and Rhythm, S1, S2 Respiratory: Yes: Mechanically Ventilated Gastrointestinal: Yes: Normal Bowel Sounds, Soft. No: Tenderness Edema: Yes Labs: CBC, BMP 08/07/17 06:18 08/07/17 06:18 INR, PTT INR 1.29 (0.82-1.09) H 07/31/17 05:41 Assessment/Plan Fever ? source Potential sources include lung, biliary tract (Large loculated- appearing L effusion, large gallstone ) Respiratory failure Off antibiotics Reculture for persistant temps
--- NOTE | 2017-08-07 12:05 | PN ---
Progress Note, Physician History of Present Illness: Fevers improving, tachycardic, unresponsive on vent. - Current Medication List Current Medications: Active Medications Apixaban (Eliquis -) 5 mg PO BID [facility] Last Admin: 08/07/17 10:50 Dose: 5 mg Insulin Aspart (Novolog Vial Sliding Scale -) 1 vial SQ BIDAC [facility] PRN Reason: Protocol Last Admin: 08/07/17 06:47 Dose: Not Given Metoprolol Tartrate (Lopressor -) 50 mg GT BID [facility] Last Admin: 08/07/17 10:50 Dose: 50 mg Pantoprazole Sodium (Protonix Iv) 40 mg IVPUSH BID [facility] Last Admin: 08/07/17 10:50 Dose: 40 mg Tobramycin Sulfate (Tobrex Ophthalmic Solution -) 1 drop OD TID [facility] Last Admin: 08/07/17 05:47 Dose: 1 drop - Objective Vital Signs: Vital Signs Temperature 99.8 F H 08/07/17 09:30 Pulse Rate 77 08/07/17 09:57 Respiratory Rate 22 08/07/17 09:57 Blood Pressure 110/66 08/07/17 09:30 O2 Sat by Pulse Oximetry (%) 98 08/07/17 09:57 Constitutional: Yes: No Distress Cardiovascular: Yes: Pulse Irregular Respiratory: Yes: Mechanically Ventilated, Rhonchi Gastrointestinal: Yes: Normal Bowel Sounds, Soft Edema: Yes Edema: LLE: Trace, RLE: Trace Labs: CBC, BMP 08/07/17 06:18 08/07/17 06:18 INR, PTT INR 1.29 (0.82-1.09) H 07/31/17 05:41 Problem List - Problems (1) Chronic respiratory failure Code(s): J96.10 - CHRONIC RESPIRATORY FAILURE, UNSP W HYPOXIA OR HYPERCAPNIA Qualifiers: Respiratory failure complication: unspecified whether with hypoxia or hypercapnia Qualified Code(s): J96.10 - Chronic respiratory failure, unspecified whether with hypoxia or hypercapnia (2) Condylomata acuminata in male Code(s): A63.0 - ANOGENITAL (VENEREAL) WARTS (3) Quadriplegia, functional Code(s): R53.2 - FUNCTIONAL QUADRIPLEGIA (4) Rapid atrial fibrillation Code(s): I48.91 - UNSPECIFIED ATRIAL FIBRILLATION (5) Sepsis Code(s): A41.9 - SEPSIS, UNSPECIFIED ORGANISM Qualifiers: Sepsis type: sepsis due to unspecified organism Qualified Code(s): A41.9 - Sepsis, unspecified organism (6) Mitral valve prolapse Code(s): I34.1 - NONRHEUMATIC MITRAL (VALVE) PROLAPSE Assessment/Plan 08/01/2017 Echo: Normal biventricular size and fxn 1. Rapid atrial fibrillation [id number] 2. Chronic respiratory failure anoxic brain injury post cardiac arrest and post trach and peg 3. Sepsis source 4. Genital condylomata 5. Demand ischemia 6. Functional quadriplegia 7. Type 2 DM 8. Anemia of chronic disease 9. Duodenal wall thickening r/o malignancy P:1. Trops have plateaued, Continue Lopressor 50 bid for rate-control, Eliquis 5 bid 2. Monitor off abx per ID, f/u C&S, 3. Chronic AC mode vent support 4. Enteral feeds
--- NOTE | 2017-08-07 12:25 | PN ---
Progress Note, Physician History of Present Illness: PULMONARY MORE AWAKE, VENT SUPPORT, LOW GRADE TEMP - Current Medication List Current Medications: Active Medications Apixaban (Eliquis -) 5 mg PO BID [facility] Last Admin: 08/07/17 10:50 Dose: 5 mg Insulin Aspart (Novolog Vial Sliding Scale -) 1 vial SQ BIDAC [facility] PRN Reason: Protocol Last Admin: 08/07/17 06:47 Dose: Not Given Metoprolol Tartrate (Lopressor -) 50 mg GT BID [facility] Last Admin: 08/07/17 10:50 Dose: 50 mg Pantoprazole Sodium (Protonix Iv) 40 mg IVPUSH BID [facility] Last Admin: 08/07/17 10:50 Dose: 40 mg Tobramycin Sulfate (Tobrex Ophthalmic Solution -) 1 drop OD TID [facility] Last Admin: 08/07/17 05:47 Dose: 1 drop - Objective Vital Signs: Vital Signs Temperature 99.8 F H 08/07/17 09:30 Pulse Rate 77 08/07/17 09:57 Respiratory Rate 22 08/07/17 09:57 Blood Pressure 110/66 08/07/17 09:30 O2 Sat by Pulse Oximetry (%) 98 08/07/17 09:57 Constitutional: Yes: Well Nourished, Calm Eyes: Yes: WNL HENT: Yes: WNL Neck: Yes: Supple (TRACH) Cardiovascular: Yes: Pulse Irregular, S1, S2 Respiratory: Yes: Rhonchi (FEW FHONCHI) Gastrointestinal: Yes: Normal Bowel Sounds, Soft Extremities: Yes: WNL Edema: No Labs: CBC, BMP 08/07/17 06:18 08/07/17 06:18 INR, PTT INR 1.29 (0.82-1.09) H 07/31/17 05:41 Problem List - Problems (1) Anemia Code(s): D64.9 - ANEMIA, UNSPECIFIED (2) Chronic respiratory failure Code(s): J96.10 - CHRONIC RESPIRATORY FAILURE, UNSP W HYPOXIA OR HYPERCAPNIA Qualifiers: Respiratory failure complication: unspecified whether with hypoxia or hypercapnia Qualified Code(s): J96.10 - Chronic respiratory failure, unspecified whether with hypoxia or hypercapnia (3) Quadriplegia, functional Code(s): R53.2 - FUNCTIONAL QUADRIPLEGIA (4) Rapid atrial fibrillation Code(s): I48.91 - UNSPECIFIED ATRIAL FIBRILLATION (5) Sepsis Code(s): A41.9 - SEPSIS, UNSPECIFIED ORGANISM Qualifiers: Sepsis type: sepsis due to unspecified organism Qualified Code(s): A41.9 - Sepsis, unspecified organism (6) UTI (urinary tract infection) Code(s): N39.0 - URINARY TRACT INFECTION, SITE NOT SPECIFIED Qualifiers: Urinary tract infection type: site unspecified Hematuria presence: without hematuria Qualified Code(s): N39.0 - Urinary tract infection, site not specified (7) Hepatitis C carrier Code(s): Z22.52 - (8) Rheumatic heart disease Code(s): I09.9 - RHEUMATIC HEART DISEASE, UNSPECIFIED (9) H/O typhoid fever Code(s): Z86.19 - PERSONAL HISTORY OF OTHER INFECTIOUS AND PARASITIC DISEASES Assessment/Plan IMP SEPSIS UTI CHRONIC RESPIRATORY FAILURE ON VENT SUPPORT AFIB ANEMIA H/O RHEUMATIC HEART DISEASE H/O TYPHOID HEP C ANEMIA PLAN VENT SUPPORT ON AC MODE INHALED BRONCHODILATORS CULTURES RATE CONTROL PER CARDIOLOGY MONITOR H+H F/U CHEST X-RAY TRANSFUSE DR ALEXANDER Problem List - Problems (1) Anemia Code(s): D64.9 - ANEMIA, UNSPECIFIED (2) Chronic respiratory failure Code(s): J96.10 - CHRONIC RESPIRATORY FAILURE, UNSP W HYPOXIA OR HYPERCAPNIA Qualifiers: Respiratory failure complication: unspecified whether with hypoxia or hypercapnia Qualified Code(s): J96.10 - Chronic respiratory failure, unspecified whether with hypoxia or hypercapnia (3) Quadriplegia, functional Code(s): R53.2 - FUNCTIONAL QUADRIPLEGIA (4) Rapid atrial fibrillation Code(s): I48.91 - UNSPECIFIED ATRIAL FIBRILLATION (5) Sepsis Code(s): A41.9 - SEPSIS, UNSPECIFIED ORGANISM Qualifiers: Sepsis type: sepsis due to unspecified organism Qualified Code(s): A41.9 - Sepsis, unspecified organism (6) UTI (urinary tract infection) Code(s): N39.0 - URINARY TRACT INFECTION, SITE NOT SPECIFIED (7) Hepatitis C carrier Code(s): Z22.52 - (8) Rheumatic heart disease Code(s): I09.9 - RHEUMATIC HEART DISEASE, UNSPECIFIED (9) H/O typhoid fever Code(s): Z86.19 - PERSONAL HISTORY OF OTHER INFECTIOUS AND PARASITIC DISEASES
[2017-08-07] MEDS ORDERED: IBUPROFEN 400 MG TABLET (FP) PO PRN (15:22)
[2017-08-08] MEDS: INSULIN SLIDING SCALE (NOVOLOG) 1 VIAL SQ SCH ×2 (06:12→17:46)
[2017-08-08] MEDS: TOBRAMYCIN 0.3% OPHTH SOLN 5 ML BOTTLE OD SCH ×3 (06:13→21:01)
[2017-08-08 08:13] LABS: BASO % 0.5 % (0-2.0); EOS % 4.9 % (0-4.5); LYMPH % 21.3 % (8-40); MCH 34.1 pg (25.7-33.7); MCHC 34.5 g/dl (32.0-35.9); MEAN CELL VOLUME 98.8 fl (80-96); MEAN PLT VOLUME 9.5 fl (7.5-11.1); MONO % 5.4 % (3.8-10.2); NEUT % 67.9 % (42.8-82.8); PLATELET COUNT 283 K/MM3 (134-434); RBC 2.63 M/mm3 (4.00-5.60); RDW 15.1 % (11.9-15.9); WHITE BLOOD COUNT 8.3 K/mm3 (4.0-10.0)
[2017-08-08 08:35] LABS: INR 1.31 (0.82-1.09); PROTHROMBIN TIME (PATIENT) 14.8 SEC (9.7-13.0)
[2017-08-08 08:54] LABS: ALBUMIN 1.9 g/dl (3.4-5.0); ANION GAP 9 (8-16); CALCIUM 8.1 mg/dL (8.5-10.1); CHLORIDE 105 mmol/L (98-107); CO2 26 mmol/L (21-32); GLUCOSE,RANDOM 151 mg/dL (74-106); SODIUM 140 mmol/L (136-145)
[2017-08-08 08:59] LABS: ALK PHOS 80 U/L (45-117); BILIRUBIN,DIRECT 0.2 mg/dL (0.0-0.2); BILIRUBIN,TOTAL 0.4 mg/dL (0.2-1.0); BLOOD UREA NITROGEN 21 mg/dL (7-18); CREATININE 0.6 mg/dL (0.7-1.3); SGOT/AST 93 U/L (15-37); SGPT/ALT 183 U/L (12-78); TOT PROT 5.9 g/dl (6.4-8.2)
--- NOTE | 2017-08-08 10:43 | CONSULT ---
Admitting History and Physical - Primary Care Physician PCP: Danyelle Sheppard - Admission History of Present Illness: Patient is a 61 year old male with a significant past medical history of dry eye syndrome, GERD with esophagitis, rheumatic mitral valve disease, hypertension, chronic pressure ulcers, pain disorder, tracheostomy, anemia, hypotension, hypothyroid, anemia, typhoid fever. Per GI note:A friend provided the following information. Tate was functional until he suffered anoxic brain damage following a cardiopulmanory arrest in at [facility]. He never recovered consciousness. He was transferred to [facility] where the tracheostomy. gastrostomy and cystostomy tubes were placed. She tells me that he has HCV but was never treated. She tells me that he was addicted to narcotic prescription drugs and was on Methadone for this and that he never abused alcohol or IVDA as best as she knows. His lower extremities are scarred from having fallen into a manhole while working for [employer]. He is and has no children. His niece is his NOK. History Source: Medical Record Limitations to Obtaining History: Clinical Condition - Past Medical History Cardiovascular: Yes: AFIB (paroxysmal), HTN, Mitral Insufficiency (? rheumatic) Pulmonary: Yes: COPD (ventilator dependent with tracheostomy) Gastrointestinal: Yes: Constipation, GERD, Other (Feeding gastrostomy tube) Hepatobiliary: Yes: Cholelithiasis, Hepatitis C (by other's history) Renal/: Yes: Neurogenic Bladder (with suprapubic cystostomy) Heme/Onc: Yes: Anemia Infectious Disease: Yes: Other (genital condylomata, ? typhoid fever) Psych: Yes: Addictions (alcoholism) ENT: Yes: Other (dry eye syndrome) Endocrine: Yes: Hypothyroidism - Smoking History Smoking history: Former smoker Have you smoked in the past 12 months: No If you are a former smoker, when did you quit?: 9 years ago - Alcohol/Substance Use Hx Alcohol Use: No History - Admission Reason For Visit: SEPSIS - General Mental Status: Lethargic Attention: Profound Impairment Ability to Follow Directions: Poor Head/Neck Control: Needs Assist - Hearing Hearing: Normal Speech Evaluation - Communication Primary Language: KENYAN Communication: Yes: Non-Communicable Oral Expression Ability: Yes: Non-Verbal, Non-Vocal - Speech Production Able to Make Needs Known: Yes: Severely Impaired - Language/Auditory Comprehension Observation: Able to respond to yes/no queries: No, Benefits from Repetiton: Yes - Swallow Evaluation/Bedside Assessment Current Nutritional Intake: NPO, G Tube Oral Secretions: Yes: Copious Secretions (secretions in posterior yadiel-pharynx. Suctioned with depressed gag noted. Reflexive swallow with tongue protrusion. Occasional reflexive cough.) Tracheostomy Present: Yes Patient on Ventilator: Yes Facial Movement: Involuntary (rare tongue protrusion and eyelid movement, reflexive but possibly some very delayed, volitional response. Pt does not visually track, but possible response to threat.) Jaw Position: Open at Rest Laryngeal Movement: Able to Palpate, Reduced Excursion, Labored,delay initiation Recommendations - Speech Evaluation, Impression/Plan Impression: Rare tongue protrusion and eyelid movement, reflexive but possibly some very delayed, volitional response. Pt does not visually track, but possible response to threat. Secretions in posterior yadiel-pharynx.Occasional reflexive cough. Suctioned with depressed gag noted. Reflexive swallow with reflexive tongue protrusion. Some tongue movement/eye blinking seems delayed but intentional. - Disposition Discharge to: [facility] Facility (neuro recovery program (coma)/trial of sensory stimulation.) - Dysphagia Impressions/Plan Swallowing Skills: Impaired Dysphagia Impressions: Profound Impairment, Suspect Aspiration
--- NOTE | 2017-08-08 11:07 | PN ---
Progress Note (short form) - Note Progress Note: PULMONARY Vented, poorly responsive. Fever curve trending down. Last Vital Signs Temp Pulse Resp BP Pulse Ox 99.7 F H 67 20 123/75 98 08/08/17 06:26 08/08/17 08:43 08/08/17 09:00 08/08/17 06:26 08/08/17 09:00 Gen: vented, poorly responsive Heart: RRR Lung: decreased breath sounds at the bases Abd: soft, nontender Ext: no edema CBC, BMP 08/08/17 07:15 08/08/17 07:15 Active Medications Apixaban (Eliquis -) 5 mg PO BID [facility] Last Admin: 08/07/17 22:48 Dose: 5 mg Ibuprofen (Motrin -) 400 mg PO Q6H PRN PRN Reason: FEVER Last Admin: 08/07/17 16:38 Dose: 400 mg Insulin Aspart (Novolog Vial Sliding Scale -) 1 vial SQ BIDAC [facility] PRN Reason: Protocol Last Admin: 08/08/17 06:12 Dose: Not Given Metoprolol Tartrate (Lopressor -) 50 mg GT BID [facility] Last Admin: 08/07/17 22:48 Dose: 50 mg Pantoprazole Sodium (Protonix Iv) 40 mg IVPUSH BID [facility] Last Admin: 08/07/17 21:20 Dose: 40 mg Tobramycin Sulfate (Tobrex Ophthalmic Solution -) 1 drop OD TID [facility] Last Admin: 08/08/17 06:13 Dose: 1 drop A/P UTI +C diff Ag Sepsis Chronic Respiratory Failure Atrial Fibrillation DM Functional Quadriplegia - monitoring off antibiotics per ID - on anticoagulation - poor candidate for weaning - enteral feeds
[2017-08-08] MEDS: PANTOPRAZOLE SODIUM 40 MG VIAL IVPUSH SCH ×2 (11:20→21:01)
[2017-08-08] MEDS: METOPROLOL TARTRATE 50 MG TABLET (FP) GT SCH ×2 (11:20→21:01)
[2017-08-08] MEDS: APIXABAN 5 MG TABLET PO SCH ×2 (11:22→21:01)
--- NOTE | 2017-08-08 11:32 | PN ---
Progress Note (short form) - Note Progress Note: Chief Complaint: Events noted notes reviewed, no change in status, remains on a ventilator, febrile yesterday History of Present Illness: Seen and examined. Events noted notes reviewed, no change in status, remains on a ventilator, febrile yesterday Anemia post transfusion Echocardiography dated 08/01/2017 revealed normal bi-ventricular size and function - Current Medication List Current Medications: Current Medications Apixaban (Eliquis -) 5 mg PO BID [facility] Last Admin: 08/07/17 22:48 Dose: 5 mg Ibuprofen (Motrin -) 400 mg PO Q6H PRN PRN Reason: FEVER Last Admin: 08/07/17 16:38 Dose: 400 mg Insulin Aspart (Novolog Vial Sliding Scale -) 1 vial SQ BIDAC [facility] PRN Reason: Protocol Last Admin: 08/08/17 06:12 Dose: Not Given Metoprolol Tartrate (Lopressor -) 50 mg GT BID [facility] Last Admin: 08/07/17 22:48 Dose: 50 mg Pantoprazole Sodium (Protonix Iv) 40 mg IVPUSH BID [facility] Last Admin: 08/07/17 21:20 Dose: 40 mg Tobramycin Sulfate (Tobrex Ophthalmic Solution -) 1 drop OD TID [facility] Last Admin: 08/08/17 06:13 Dose: 1 drop - Objective Vital Signs: Last Vital Signs Temp Pulse Resp BP Pulse Ox 99.7 F H 67 20 123/75 98 08/08/17 06:26 08/08/17 08:43 08/08/17 09:00 08/08/17 06:26 08/08/17 09:00 Intake & Output 08/05/17 08/06/17 08/07/17 08/08/17 23:59 23:59 23:59 23:59 Intake Total 920 1300 2890 1120 Output Total 850 1000 550 100 Balance 70 300 2340 1020 Constitutional: No Distress Cardiovascular: S1 S2 Irregularly Irregular Respiratory: Diminished Breath Sounds at the Bases with Bilateral Scattered Rhonchi Gastrointestinal: Soft Benign Normal Bowel Sounds Ext: Trace Edema Labs: CBC, BMP 08/08/17 07:15 08/08/17 07:15 Hepatic Panel Total Bilirubin 0.4 mg/dL (0.2-1.0) D 08/08/17 07:15 Direct Bilirubin 0.2 mg/dL (0.0-0.2) 08/08/17 07:15 AST 93 U/L (15-37) H 08/08/17 07:15 ALT 183 U/L (12-78) H 08/08/17 07:15 Alkaline Phosphatase 80 U/L (45-117) 08/08/17 07:15 Albumin 1.9 g/dl (3.4-5.0) L 08/08/17 07:15 INR, PTT INR 1.31 (0.82-1.09) H 08/08/17 07:15 Assessment/Plan ASSESSMENT: 1. Persistent atrial fibrillation with periods of rapid ventricular response, [id number] score of 2 on A/C 2. CAD angina pectoris with demand ischemia 3. Chronic respiratory failure post anoxic brain injury post cardiac arrest, post tracheaostomy and PEG insertion 4. Functional quadriplegia 5. DM 6. Sepsis genito-urinary source, resolved 7. Genital condylomata 8. Anemia of chronic disease PLAN: 1. Continue Lopressor 2. Continue Eliquis 3. Monitor CBC and transfuse as needed maintaining Hgb equal or > 8.0 [place] M.D.
--- NOTE | 2017-08-08 12:42 | PN ---
Progress Note, Physician Chief Complaint: no distress poor responsive - Current Medication List Current Medications: Active Medications Apixaban (Eliquis -) 5 mg PO BID [facility] Last Admin: 08/08/17 11:22 Dose: 5 mg Ibuprofen (Motrin -) 400 mg PO Q6H PRN PRN Reason: FEVER Last Admin: 08/07/17 16:38 Dose: 400 mg Insulin Aspart (Novolog Vial Sliding Scale -) 1 vial SQ BIDAC [facility] PRN Reason: Protocol Last Admin: 08/08/17 06:12 Dose: Not Given Metoprolol Tartrate (Lopressor -) 50 mg GT BID [facility] Last Admin: 08/08/17 11:20 Dose: 50 mg Pantoprazole Sodium (Protonix Iv) 40 mg IVPUSH BID [facility] Last Admin: 08/08/17 11:20 Dose: 40 mg Tobramycin Sulfate (Tobrex Ophthalmic Solution -) 1 drop OD TID [facility] Last Admin: 08/08/17 06:13 Dose: 1 drop - Objective Vital Signs: Vital Signs Temperature 99 F 08/08/17 11:27 Pulse Rate 100 H 08/08/17 11:27 Respiratory Rate 23 08/08/17 11:44 Blood Pressure 128/75 08/08/17 11:27 O2 Sat by Pulse Oximetry (%) 98 08/08/17 09:00 Constitutional: Yes: No Distress Cardiovascular: Yes: Regular Rate and Rhythm Respiratory: Yes: Diminished, Mechanically Ventilated Gastrointestinal: Yes: Normal Bowel Sounds, Soft. No: Tenderness Edema: No Labs: CBC, BMP 08/08/17 07:15 08/08/17 07:15 INR, PTT INR 1.31 (0.82-1.09) H 08/08/17 07:15 Problem List - Problems (1) Rapid atrial fibrillation Code(s): I48.91 - UNSPECIFIED ATRIAL FIBRILLATION (2) Chronic respiratory failure Code(s): J96.10 - CHRONIC RESPIRATORY FAILURE, UNSP W HYPOXIA OR HYPERCAPNIA Qualifiers: Respiratory failure complication: unspecified whether with hypoxia or hypercapnia Qualified Code(s): J96.10 - Chronic respiratory failure, unspecified whether with hypoxia or hypercapnia (3) Quadriplegia, functional Code(s): R53.2 - FUNCTIONAL QUADRIPLEGIA (4) Sepsis Code(s): A41.9 - SEPSIS, UNSPECIFIED ORGANISM Qualifiers: Sepsis type: sepsis due to unspecified organism Qualified Code(s): A41.9 - Sepsis, unspecified organism (5) UTI (urinary tract infection) Code(s): N39.0 - URINARY TRACT INFECTION, SITE NOT SPECIFIED Qualifiers: Urinary tract infection type: site unspecified Hematuria presence: without hematuria Qualified Code(s): N39.0 - Urinary tract infection, site not specified Assessment/Plan PLAN off antibiotics per ID on Eliquis GI eval noted on protonix s/p PRBC
--- NOTE | 2017-08-08 13:51 | PN ---
Progress Note, Physician History of Present Illness: Not responsive No acute distress Temps down WBC WNL C diff Ag + but no diarrhea per staff Off antibiotics - Current Medication List Current Medications: Active Medications Apixaban (Eliquis -) 5 mg PO BID [facility] Last Admin: 08/08/17 11:22 Dose: 5 mg Ibuprofen (Motrin -) 400 mg PO Q6H PRN PRN Reason: FEVER Last Admin: 08/07/17 16:38 Dose: 400 mg Insulin Aspart (Novolog Vial Sliding Scale -) 1 vial SQ BIDAC [facility] PRN Reason: Protocol Last Admin: 08/08/17 06:12 Dose: Not Given Metoprolol Tartrate (Lopressor -) 50 mg GT BID [facility] Last Admin: 08/08/17 11:20 Dose: 50 mg Pantoprazole Sodium (Protonix Iv) 40 mg IVPUSH BID [facility] Last Admin: 08/08/17 11:20 Dose: 40 mg Tobramycin Sulfate (Tobrex Ophthalmic Solution -) 1 drop OD TID [facility] Last Admin: 08/08/17 06:13 Dose: 1 drop - Objective Vital Signs: Vital Signs Temperature 99 F 08/08/17 13:04 Pulse Rate 107 H 08/08/17 13:04 Respiratory Rate 25 H 08/08/17 13:04 Blood Pressure 121/62 08/08/17 13:04 O2 Sat by Pulse Oximetry (%) 98 08/08/17 09:00 Constitutional: Yes: No Distress Eyes: Yes: Conjunctiva Clear Cardiovascular: Yes: Regular Rate and Rhythm, S1, S2 Respiratory: Yes: Mechanically Ventilated Gastrointestinal: Yes: Normal Bowel Sounds, Soft. No: Tenderness Edema: Yes Labs: CBC, BMP 08/08/17 07:15 08/08/17 07:15 INR, PTT INR 1.31 (0.82-1.09) H 08/08/17 07:15 Assessment/Plan Fever Temps down Potential sources include lung, biliary tract (Large loculated- appearing L effusion, large gallstone ) Respiratory failure + Sputum c/s Pseudomonas likely contaminant/ colonizer Off antibiotics Reculture for persistant temps
--- NOTE | 2017-08-08 16:17 | PN ---
GI Progress Note Subjective: No acute events Transfused yesterday 1 soft BM reported today. No diarrhea or BM reported yesterday No melena/rectal bleeding UGIS cancelled by radiology. Dr. Shea called to say that because Mr. Wagoner is on a vent, he could not be positioned properly and it would be non diagnostic. - Objective Vital Signs: Vital Signs Temperature 99 F 08/08/17 13:04 Pulse Rate 107 H 08/08/17 13:04 Respiratory Rate 26 H 08/08/17 15:38 Blood Pressure 121/62 08/08/17 13:04 O2 Sat by Pulse Oximetry (%) 98 08/08/17 09:00 Constitutional: Calm Eyes: No: Sclera Icterus Cardiovascular: Yes: Tachycardia, Pulse Irregular Respiratory: Yes: Diminished (at bases with poor inp effort) Gastrointestinal Inspection: No: Distention ...Auscultate: Yes: Normoactive Bowel Sounds ...Palpate: Yes: Tenderness (Patient non-verbal. No grimacing or guarding upon palpation) ...Percussion: No: Tympanitic Edema: Yes (Chronic stasis changes) Labs: CBC, BMP 08/08/17 07:15 08/08/17 07:15 INR, PTT INR 1.31 (0.82-1.09) H 08/08/17 07:15 Hepatic Panel Total Bilirubin 0.4 mg/dL (0.2-1.0) D 08/08/17 07:15 Direct Bilirubin 0.2 mg/dL (0.0-0.2) 08/08/17 07:15 AST 93 U/L (15-37) H 08/08/17 07:15 ALT 183 U/L (12-78) H 08/08/17 07:15 Alkaline Phosphatase 80 U/L (45-117) 08/08/17 07:15 Albumin 1.9 g/dl (3.4-5.0) L 08/08/17 07:15 Laboratory Tests 08/04/17 08/06/17 06:00 06:27 AMBAR Screen Negative Hepatitis A Ab Total Pending Hep Bs Antigen Pending Hep Bs Antibody Pending Hep B Core Total Ab Pending Hep C Ab Diagnostic Pending Problem List - Problems (1) Duodenum disorder Assessment/Plan: UGIS cancelled Tolerating tube feeds Awaiting family decision re: EGD however from discussion with his niece, she was trying to be conservative right now Pantoprazole 40mg BID for 1 week followed by daily Code(s): K31.9 - DISEASE OF STOMACH AND DUODENUM, UNSPECIFIED (2) Transaminitis Assessment/Plan: Normal on admission Improving currently Avoid hepatotoxic agents Code(s): R74.0 - NONSPEC ELEV OF LEVELS OF TRANSAMNS & LACTIC ACID DEHYDRGNSE
[2017-08-09 00:11] LABS: HBSAG SCREEN Negative (Negative); HEP A AB, IGM Negative (Negative); HEP B CORE AB, TOT Positive (Negative)
[2017-08-09] MEDS: TOBRAMYCIN 0.3% OPHTH SOLN 5 ML BOTTLE OD SCH ×3 (05:21→21:11)
[2017-08-09] MEDS: INSULIN SLIDING SCALE (NOVOLOG) 1 VIAL SQ SCH ×2 (06:52→17:04)
[2017-08-09 07:34] LABS: BASO % 0.5 % (0-2.0); HEMATOCRIT 31.2 % (35.4-49); HEMOGLOBIN 10.6 GM/dL (11.7-16.9); LYMPH % 13.3 % (8-40); MCH 33.9 pg (25.7-33.7); MEAN CELL VOLUME 99.7 fl (80-96); MEAN PLT VOLUME 9.8 fl (7.5-11.1); MONO % 3.8 % (3.8-10.2); NEUT % 79.4 % (42.8-82.8); PLATELET COUNT 386 K/MM3 (134-434); RBC 3.13 M/mm3 (4.00-5.60); RDW 15.7 % (11.9-15.9); WHITE BLOOD COUNT 16.2 K/mm3 (4.0-10.0)
[2017-08-09 08:09] LABS: ALPHA 2 MACROGLOBULINS,QN 305 mg/dL (110-276); ALT(SGPT)P5P 240 IU/L (0-55); CHOLESTEROL TOTAL 119 mg/dL (100-199); FIBROSIS SCORE- 0.33 (0.00-0.21); GGT= 28 IU/L (0-65); GLUCOSE SERUM 190 mg/dL (65-99); HEIGHT. 70 in (.); WEIGHT. 212 LBS (.)
--- NOTE | 2017-08-09 08:11 | PN ---
Progress Note, Physician Chief Complaint: ID Difficult situation in which MR Wagoner has FUO without the ability to offer any history GI note seen ? neoplastic process C diff is positive for Ag neg toxin but no diarrhea Off antibiotics - Current Medication List Current Medications: Active Medications Apixaban (Eliquis -) 5 mg PO BID [facility] Last Admin: 08/08/17 21:01 Dose: 5 mg Insulin Aspart (Novolog Vial Sliding Scale -) 1 vial SQ BIDAC [facility] PRN Reason: Protocol Last Admin: 08/09/17 06:52 Dose: Not Given Metoprolol Tartrate (Lopressor -) 50 mg GT BID [facility] Last Admin: 08/08/17 21:01 Dose: 50 mg Pantoprazole Sodium (Protonix Iv) 40 mg IVPUSH BID [facility] Last Admin: 08/08/17 21:01 Dose: 40 mg Tobramycin Sulfate (Tobrex Ophthalmic Solution -) 1 drop OD TID [facility] Last Admin: 08/09/17 05:21 Dose: 1 drop - Objective Vital Signs: Vital Signs Temperature 99.4 F 08/09/17 07:00 Pulse Rate 78 08/09/17 07:00 Respiratory Rate 22 08/09/17 07:00 Blood Pressure 122/75 08/09/17 07:00 O2 Sat by Pulse Oximetry (%) 96 08/08/17 21:00 Constitutional: Yes: Other (Vent dependent) Neck: Yes: Other (Trach) Cardiovascular: Yes: S1, S2 Respiratory: Yes: WNL, Regular, CTA Bilaterally Gastrointestinal: Yes: WNL, Normal Bowel Sounds, Soft. No: Tenderness, Tenderness, Epigastrium Edema: Yes Labs: CBC, BMP 08/09/17 07:00 08/08/17 07:15 INR, PTT INR 1.31 (0.82-1.09) H 08/08/17 07:15 Problem List - Problems (1) Condylomata acuminata in male Code(s): A63.0 - ANOGENITAL (VENEREAL) WARTS (2) Sepsis Code(s): A41.9 - SEPSIS, UNSPECIFIED ORGANISM Qualifiers: Sepsis type: sepsis due to unspecified organism Qualified Code(s): A41.9 - Sepsis, unspecified organism (3) UTI (urinary tract infection) Code(s): N39.0 - URINARY TRACT INFECTION, SITE NOT SPECIFIED Qualifiers: Urinary tract infection type: site unspecified Hematuria presence: without hematuria Qualified Code(s): N39.0 - Urinary tract infection, site not specified (4) Hepatitis C carrier Code(s): Z22.52 - (5) Mitral valve prolapse Code(s): I34.1 - NONRHEUMATIC MITRAL (VALVE) PROLAPSE (6) FUO (fever of unknown origin) Code(s): R50.9 - FEVER, UNSPECIFIED Assessment/Plan Laboratory Tests 08/06/17 08/07/17 08/08/17 06:27 06:18 07:15 WBC Hgb Hct Plt Count BUN 21 H Creatinine 0.6 L AST 158 H D 107 H D ALT 232 H D 218 H Alkaline Phosphatase 97 D 82 08/09/17 07:00 WBC 16.2 H D Hgb 10.6 L D Hct 31.2 L D Plt Count 386 D BUN Creatinine AST ALT Alkaline Phosphatase Assessment FUO Today WBC up but again no clear source Pleural effusion Thickening of duodenum on CT ?malignancy C diff ag pos toxin neg .> Carriage Vent dependent Plan Blood cultures x 2 CPR ESR Endoscopy if permitted Consider IR attemp to thoracentesis Not in a christensen to give antibiotics as fever did not respond before and not unstable Veena ROY
[2017-08-09] MEDS ORDERED: PT OWN MED DRAWER 7, Y5N ONE ×3 (10:23→20:53)
[2017-08-09] MEDS: APIXABAN 5 MG TABLET PO SCH ×2 (10:36→21:11)
[2017-08-09] MEDS: PANTOPRAZOLE SODIUM 40 MG VIAL IVPUSH SCH ×2 (10:36→21:12)
[2017-08-09] MEDS: METOPROLOL TARTRATE 50 MG TABLET (FP) GT SCH ×2 (10:36→21:11)
--- NOTE | 2017-08-09 11:59 | PN ---
Progress Note, Physician Chief Complaint: no distress poor responsive low grade temps - Current Medication List Current Medications: Active Medications Apixaban (Eliquis -) 5 mg PO BID [facility] Last Admin: 08/09/17 10:36 Dose: 5 mg Insulin Aspart (Novolog Vial Sliding Scale -) 1 vial SQ BIDAC [facility] PRN Reason: Protocol Last Admin: 08/09/17 06:52 Dose: Not Given Metoprolol Tartrate (Lopressor -) 50 mg GT BID [facility] Last Admin: 08/09/17 10:36 Dose: 50 mg Pantoprazole Sodium (Protonix Iv) 40 mg IVPUSH BID [facility] Last Admin: 08/09/17 10:36 Dose: 40 mg Tobramycin Sulfate (Tobrex Ophthalmic Solution -) 1 drop OD TID [facility] Last Admin: 08/09/17 05:21 Dose: 1 drop - Objective Vital Signs: Vital Signs Temperature 99.3 F 08/09/17 09:00 Pulse Rate 72 08/09/17 11:26 Respiratory Rate 24 08/09/17 09:46 Blood Pressure 105/74 08/09/17 09:00 O2 Sat by Pulse Oximetry (%) 98 08/09/17 11:26 Constitutional: Yes: No Distress Cardiovascular: Yes: Pulse Irregular Respiratory: Yes: Diminished, Mechanically Ventilated Gastrointestinal: Yes: Normal Bowel Sounds, Soft, Other (GT). No: Tenderness, Tenderness, Epigastrium Edema: Yes Edema: LLE: 1+, RLE: 1+ Labs: CBC, BMP 08/09/17 07:00 08/08/17 07:15 INR, PTT INR 1.31 (0.82-1.09) H 08/08/17 07:15 Problem List - Problems (1) Rapid atrial fibrillation Code(s): I48.91 - UNSPECIFIED ATRIAL FIBRILLATION (2) Chronic respiratory failure Code(s): J96.10 - CHRONIC RESPIRATORY FAILURE, UNSP W HYPOXIA OR HYPERCAPNIA Qualifiers: Respiratory failure complication: unspecified whether with hypoxia or hypercapnia Qualified Code(s): J96.10 - Chronic respiratory failure, unspecified whether with hypoxia or hypercapnia (3) Quadriplegia, functional Code(s): R53.2 - FUNCTIONAL QUADRIPLEGIA (4) Sepsis Code(s): A41.9 - SEPSIS, UNSPECIFIED ORGANISM Qualifiers: Sepsis type: sepsis due to unspecified organism Qualified Code(s): A41.9 - Sepsis, unspecified organism (5) UTI (urinary tract infection) Code(s): N39.0 - URINARY TRACT INFECTION, SITE NOT SPECIFIED Qualifiers: Urinary tract infection type: site unspecified Hematuria presence: without hematuria Qualified Code(s): N39.0 - Urinary tract infection, site not specified Assessment/Plan PLAN off antibiotics per ID on Eliquis low grade temps, WBC elevated today on protonix s/p PRBC-- HCT stable
--- NOTE | 2017-08-09 12:09 | PN ---
Progress Note, [employer] - Note Progress Note: Arousability difficult to assess. Eyes closed initially. With tactile stimulation, right eye 1/2 opening, no visual tracking. No blink to threat but closed eye. Rare volitional (?) head moving. Tongue out. No reflexive swallow, seen yesterday. Quite impaired with possible very low cognitive response. Continue trial of neurorecovery/tactile/auditory stimulation for possible responsiveness.
--- NOTE | 2017-08-09 12:37 | PN ---
Progress Note, Physician History of Present Illness: pulmonary poorly responsive on vent support,ac mode - Current Medication List Current Medications: Active Medications Apixaban (Eliquis -) 5 mg PO BID [facility] Last Admin: 08/09/17 10:36 Dose: 5 mg Insulin Aspart (Novolog Vial Sliding Scale -) 1 vial SQ BIDAC [facility] PRN Reason: Protocol Last Admin: 08/09/17 06:52 Dose: Not Given Metoprolol Tartrate (Lopressor -) 50 mg GT BID [facility] Last Admin: 08/09/17 10:36 Dose: 50 mg Pantoprazole Sodium (Protonix Iv) 40 mg IVPUSH BID [facility] Last Admin: 08/09/17 10:36 Dose: 40 mg Tobramycin Sulfate (Tobrex Ophthalmic Solution -) 1 drop OD TID [facility] Last Admin: 08/09/17 05:21 Dose: 1 drop - Objective Vital Signs: Vital Signs Temperature 99.3 F 08/09/17 09:00 Pulse Rate 72 08/09/17 11:26 Respiratory Rate 24 08/09/17 09:46 Blood Pressure 105/74 08/09/17 09:00 O2 Sat by Pulse Oximetry (%) 98 08/09/17 11:26 Constitutional: Yes: Well Nourished, Other (poorly responsive) Eyes: Yes: WNL HENT: Yes: WNL Neck: Yes: Supple Cardiovascular: Yes: Pulse Irregular, S1, S2 Respiratory: Yes: Mechanically Ventilated, Rhonchi Gastrointestinal: Yes: Normal Bowel Sounds, Soft Extremities: Yes: WNL Edema: No Labs: CBC, BMP 08/09/17 07:00 Problem List - Problems (1) Anemia Code(s): D64.9 - ANEMIA, UNSPECIFIED (2) Chronic respiratory failure Code(s): J96.10 - CHRONIC RESPIRATORY FAILURE, UNSP W HYPOXIA OR HYPERCAPNIA Qualifiers: Respiratory failure complication: unspecified whether with hypoxia or hypercapnia Qualified Code(s): J96.10 - Chronic respiratory failure, unspecified whether with hypoxia or hypercapnia (3) Quadriplegia, functional Code(s): R53.2 - FUNCTIONAL QUADRIPLEGIA (4) Rapid atrial fibrillation Code(s): I48.91 - UNSPECIFIED ATRIAL FIBRILLATION (5) Sepsis Code(s): A41.9 - SEPSIS, UNSPECIFIED ORGANISM Qualifiers: Sepsis type: sepsis due to unspecified organism Qualified Code(s): A41.9 - Sepsis, unspecified organism (6) UTI (urinary tract infection) Code(s): N39.0 - URINARY TRACT INFECTION, SITE NOT SPECIFIED Qualifiers: Urinary tract infection type: site unspecified Hematuria presence: without hematuria Qualified Code(s): N39.0 - Urinary tract infection, site not specified (7) Hepatitis C carrier Code(s): Z22.52 - (8) Rheumatic heart disease Code(s): I09.9 - RHEUMATIC HEART DISEASE, UNSPECIFIED (9) H/O typhoid fever Code(s): Z86.19 - PERSONAL HISTORY OF OTHER INFECTIOUS AND PARASITIC DISEASES Assessment/Plan IMP SEPSIS UTI CHRONIC RESPIRATORY FAILURE ON VENT SUPPORT AFIB ANEMIA H/O RHEUMATIC HEART DISEASE H/O TYPHOID HEP C ANEMIA PLAN VENT SUPPORT ON AC MODE INHALED BRONCHODILATORS RATE CONTROL PER CARDIOLOGY MONITOR H+H F/U CHEST X-RAY TRANSFUSE NEEDED DR ALEXANDER Problem List - Problems (1) Anemia Code(s): D64.9 - ANEMIA, UNSPECIFIED (2) Chronic respiratory failure Code(s): J96.10 - CHRONIC RESPIRATORY FAILURE, UNSP W HYPOXIA OR HYPERCAPNIA Qualifiers: Respiratory failure complication: unspecified whether with hypoxia or hypercapnia Qualified Code(s): J96.10 - Chronic respiratory failure, unspecified whether with hypoxia or hypercapnia (3) Quadriplegia, functional Code(s): R53.2 - FUNCTIONAL QUADRIPLEGIA (4) Rapid atrial fibrillation Code(s): I48.91 - UNSPECIFIED ATRIAL FIBRILLATION (5) Sepsis Code(s): A41.9 - SEPSIS, UNSPECIFIED ORGANISM Qualifiers: Sepsis type: sepsis due to unspecified organism Qualified Code(s): A41.9 - Sepsis, unspecified organism (6) UTI (urinary tract infection) Code(s): N39.0 - URINARY TRACT INFECTION, SITE NOT SPECIFIED (7) Hepatitis C carrier Code(s): Z22.52 - (8) Rheumatic heart disease Code(s): I09.9 - RHEUMATIC HEART DISEASE, UNSPECIFIED (9) H/O typhoid fever Code(s): Z86.19 - PERSONAL HISTORY OF OTHER INFECTIOUS AND PARASITIC DISEASES
[2017-08-09] MEDS ORDERED: ACETAMINOPHEN 650 MG/20.3 ML ORAL SOLUTION (CUPS) PO PRN (13:01)
--- NOTE | 2017-08-09 13:44 | PN ---
Progress Note, Physician History of Present Illness: Fevers improving, tachycardic, unresponsive on vent. - Current Medication List Current Medications: Active Medications Acetaminophen (Tylenol Oral Solution -) 650 mg PO Q6H PRN PRN Reason: PAIN LEVEL 6-10 Apixaban (Eliquis -) 5 mg PO BID [facility] Last Admin: 08/09/17 10:36 Dose: 5 mg Insulin Aspart (Novolog Vial Sliding Scale -) 1 vial SQ BIDAC [facility] PRN Reason: Protocol Last Admin: 08/09/17 06:52 Dose: Not Given Metoprolol Tartrate (Lopressor -) 50 mg GT BID [facility] Last Admin: 08/09/17 10:36 Dose: 50 mg Pantoprazole Sodium (Protonix Iv) 40 mg IVPUSH BID [facility] Last Admin: 08/09/17 10:36 Dose: 40 mg Tobramycin Sulfate (Tobrex Ophthalmic Solution -) 1 drop OD TID [facility] Last Admin: 08/09/17 05:21 Dose: 1 drop - Objective Vital Signs: Vital Signs Temperature 99.3 F 08/09/17 09:00 Pulse Rate 78 08/09/17 13:39 Respiratory Rate 23 08/09/17 13:39 Blood Pressure 135/76 08/09/17 13:39 O2 Sat by Pulse Oximetry (%) 98 08/09/17 11:26 Constitutional: Yes: No Distress, Calm Neck: Yes: Supple Cardiovascular: Yes: Pulse Irregular Respiratory: Yes: Mechanically Ventilated, Rhonchi Gastrointestinal: Yes: Normal Bowel Sounds, Soft Edema: Yes Edema: LLE: Trace, RLE: Trace Labs: CBC, BMP 08/09/17 07:00 08/08/17 07:15 INR, PTT INR 1.31 (0.82-1.09) H 08/08/17 07:15 Problem List - Problems (1) Chronic respiratory failure Code(s): J96.10 - CHRONIC RESPIRATORY FAILURE, UNSP W HYPOXIA OR HYPERCAPNIA Qualifiers: Respiratory failure complication: unspecified whether with hypoxia or hypercapnia Qualified Code(s): J96.10 - Chronic respiratory failure, unspecified whether with hypoxia or hypercapnia (2) Condylomata acuminata in male Code(s): A63.0 - ANOGENITAL (VENEREAL) WARTS (3) Quadriplegia, functional Code(s): R53.2 - FUNCTIONAL QUADRIPLEGIA (4) Rapid atrial fibrillation Code(s): I48.91 - UNSPECIFIED ATRIAL FIBRILLATION (5) Sepsis Code(s): A41.9 - SEPSIS, UNSPECIFIED ORGANISM Qualifiers: Sepsis type: sepsis due to unspecified organism Qualified Code(s): A41.9 - Sepsis, unspecified organism (6) Mitral valve prolapse Code(s): I34.1 - NONRHEUMATIC MITRAL (VALVE) PROLAPSE Assessment/Plan 08/01/2017 Echo: Normal biventricular size and fxn 1. Persistent atrial fibrillation with periods of rapid ventricular response, [id number] score of 2 on A/C 2. CAD angina pectoris with demand ischemia 3. Chronic respiratory failure post anoxic brain injury post cardiac arrest, post tracheaostomy and PEG insertion 4. Functional quadriplegia 5. DM 6. Sepsis genito-urinary source, resolved 7. Genital condylomata 8. Anemia of chronic disease 9. FUO PLAN: 1. Continue Lopressor 50 bid 2. Continue Eliquis 5 bid 3. Monitor CBC and transfuse as needed maintaining Hgb equal or > 8.0 3. Chronic AC mode vent support 4. Enteral feeds 5. Observe off abx, f/u C&S
--- NOTE | 2017-08-09 20:24 | CON.ENT ---
Consult Consult Specialty:: ENT Referred by:: Dr. Baunelos Reason for Consultation:: tracheotomy evaluation - History of Present Illness Chief Complaint: trach status History of Present Illness: 62 yo M with hx cardiopulmonary arrest May 2017 anoxic encepahalopathy, has trach, ventilator dependent G tube, suprapubic tube presently on isolation (?r/o C diff) on ventilator, assist control mode spontaneous respirations Tidal volume 430-780 cc - History Source History Provided By: Medical Record Limitations to Obtaining History: Unresponsive - Past Medical History Cardio/Vascular: Yes: AFIB (paroxysmal), HTN, Mitral Insufficiency (? rheumatic) Pulmonary: Yes: COPD (ventilator dependent with tracheostomy) Gastrointestinal: Yes: Constipation, GERD, Other (Feeding gastrostomy tube) Hepatobiliary: Yes: Cholelithiasis, Hepatitis C (by other's history) Renal/: Yes: Neurogenic Bladder (with suprapubic cystostomy) Infectious Disease: Yes: Other (genital condylomata, ? typhoid fever) Psych: Yes: Addictions (alcoholism) ENT: Yes: Other (dry eye syndrome) Endocrine: Yes: Hypothyroidism - Past Surgical History Additional Surgical History: Tracheostomy. Suprapubic cystostomy. Gastrostomy tbe - Alcohol/Substance Use Hx Alcohol Use: No - Smoking History Smoking history: Former smoker Have you smoked in the past 12 months: No If you are a former smoker, when did you quit?: 9 years ago Home Medications - Allergies Allergies/Adverse Reactions: Allergies Allergy/AdvReac Type Severity Reaction Status Date / Time No Known Allergies Allergy Verified 05/26/13 15:18 - Home Medications Home Medications: Ambulatory Orders Acetaminophen [Tylenol -] 500 mg GT Q6H PRN 07/31/17 Acetaminophen [Tylenol Extra Strength] 500 mg GT DAILY PRN 07/31/17 Albuterol Sulfate Inhaler - [Ventolin Hfa Inhaler -] 2 inh IH Q6H 07/31/17 Clotrimazole/Betamet Diprop [Lotrisone Cream (Small Tube)] 1 applic TP ASDIR Famotidine 20 mg GT DAILY 07/31/17 Heparin Sod,Porcine/0.9 % NaCl [Heparin 5,000 Unit/5 ml-Ns] 5,000 unit SQ Q8H Hypromellose 0.5% Opth Soln [Artificial Tears] 1 drop QID 07/31/17 Levothyroxine [Synthroid -] 25 mcg GT 0600 07/31/17 Metoprolol Succinate 25 mg GT BID 07/31/17 Mineral Oil/Petrolatum,White [Puralube Ophthalmic Ointment] 1 gm OU Q6H Sennosides [Senna] 8.8 mg GT DAILY 07/31/17 levoFLOXacin [Levaquin -] 500 mg GT DAILY 07/31/17 Family Disease History - Family Disease History Family History: Unable to Obtain Family Disease History: CA: Mother, Respiratory: Father (emphysema, alcohol), Other: Father Physical Exam-ENT Vital Signs: Vital Signs Temperature 98.0 F 08/09/17 20:02 Pulse Rate 84 08/09/17 20:02 Respiratory Rate 21 08/09/17 20:02 Blood Pressure 114/67 08/09/17 20:02 O2 Sat by Pulse Oximetry (%) 98 08/09/17 11:26 Constitutional: Yes: No Distress Head: Yes: WNL Neck: Yes: Other (#6 Shiley DCT tracheotomy tube in place, secure, and functioning well, no audible air leak, cuff inflated, sl infrastomal skin erythema. on ventilator, assist control mode, spontaneous respirations with good chest expansion observed.) Imaging - Results Chest X-ray: Report Reviewed, Image Reviewed Problem List - Problems (1) Tracheostomy tube present Assessment/Plan: pt is ventilator dependant via tracheotomy s/p cardiopulmonary arrest and anoxic encephalopathy presently trach tube is in place, secure, and functioning well, cuff inflated, no leak, and adequate air movement and oxygenation. Recommend; continue trach care ventilator support as per Pulmonary physicians Thank you for consultation, John Acuna MD FACS Code(s): Z93.0 - TRACHEOSTOMY STATUS
[2017-08-10] MEDS: TOBRAMYCIN 0.3% OPHTH SOLN 5 ML BOTTLE OD SCH ×3 (05:09→23:32)
[2017-08-10] MEDS: INSULIN SLIDING SCALE (NOVOLOG) 1 VIAL SQ SCH ×2 (06:32→16:54)
[2017-08-10 08:29] LABS: BASO % 0.7 % (0-2.0); EOS % 3.9 % (0-4.5); HEMATOCRIT 29.8 % (35.4-49); HEMOGLOBIN 9.9 GM/dL (11.7-16.9); LYMPH % 14.5 % (8-40); MCH 33.7 pg (25.7-33.7); MCHC 33.4 g/dl (32.0-35.9); MEAN CELL VOLUME 100.9 fl (80-96); MEAN PLT VOLUME 9.6 fl (7.5-11.1); MONO % 5.8 % (3.8-10.2); NEUT % 75.1 % (42.8-82.8); PLATELET COUNT 316 K/MM3 (134-434); RBC 2.95 M/mm3 (4.00-5.60); RDW 15.8 % (11.9-15.9); WHITE BLOOD COUNT 10.7 K/mm3 (4.0-10.0)
[2017-08-10 08:56] LABS: ALK PHOS 81 U/L (45-117); ANION GAP 11 (8-16); BILIRUBIN,TOTAL 0.3 mg/dL (0.2-1.0); BLOOD UREA NITROGEN 19 mg/dL (7-18); CALCIUM 8.4 mg/dL (8.5-10.1); CHLORIDE 103 mmol/L (98-107); CO2 26 mmol/L (21-32); CREATININE 0.7 mg/dL (0.7-1.3); GLUCOSE,RANDOM 162 mg/dL (74-106); SGOT/AST 45 U/L (15-37); SGPT/ALT 115 U/L (12-78); SODIUM 140 mmol/L (136-145); TOT PROT 6.2 g/dl (6.4-8.2)
[2017-08-10] MEDS ORDERED: PT OWN MED DRAWER 7, Y5N ONE ×3 (09:22→23:08)
[2017-08-10] MEDS: PANTOPRAZOLE SODIUM 40 MG VIAL IVPUSH SCH ×2 (09:32→23:31)
[2017-08-10] MEDS: METOPROLOL TARTRATE 50 MG TABLET (FP) GT SCH ×2 (09:32→23:31)
[2017-08-10] MEDS: APIXABAN 5 MG TABLET PO SCH ×2 (09:32→23:31)
--- NOTE | 2017-08-10 11:13 | PN ---
Progress Note (short form) - Note Progress Note: PULMONARY Vented, poorly responsive. Fever curve trending down. Last Vital Signs Temp Pulse Resp BP Pulse Ox 99.5 F 80 17 133/65 100 08/10/17 06:00 08/10/17 08:03 08/10/17 09:36 08/10/17 06:00 08/10/17 08:03 Gen: vented, poorly responsive Heart: RRR Lung: decreased breath sounds at the bases Abd: soft, nontender Ext: no edema CBC, BMP 08/10/17 07:45 08/10/17 07:45 Active Medications Acetaminophen (Tylenol Oral Solution -) 650 mg PO Q6H PRN PRN Reason: PAIN LEVEL 6-10 Apixaban (Eliquis -) 5 mg PO BID [facility] Last Admin: 08/10/17 09:32 Dose: 5 mg Insulin Aspart (Novolog Vial Sliding Scale -) 1 vial SQ BIDAC [facility] PRN Reason: Protocol Last Admin: 08/10/17 06:32 Dose: Not Given Metoprolol Tartrate (Lopressor -) 50 mg GT BID [facility] Last Admin: 08/10/17 09:32 Dose: 50 mg Pantoprazole Sodium (Protonix Iv) 40 mg IVPUSH BID [facility] Last Admin: 08/10/17 09:32 Dose: 40 mg Tobramycin Sulfate (Tobrex Ophthalmic Solution -) 1 drop OD TID [facility] Last Admin: 08/10/17 05:09 Dose: 1 drop A/P UTI +C diff Ag Sepsis Chronic Respiratory Failure Atrial Fibrillation DM Functional Quadriplegia - monitoring off antibiotics per ID - on anticoagulation - poor candidate for weaning - enteral feeds
--- NOTE | 2017-08-10 11:48 | PN ---
Progress Note (short form) - Note Progress Note: Today a good day for Tate as he is stable with no fever and normal WBC count NO IV antibiotics or po Selected Entries 08/09/17 08/10/17 08/10/17 20:02 02:00 06:00 Temperature 98.0 F 98.6 F 99.5 F Pulse Rate 80 Respiratory Rate Blood Pressure 133/65 08/10/17 06:13 Temperature Pulse Rate Respiratory 20 Rate Blood Pressure Microbiology 08/09/17 10:45 Blood - Peripheral Venous Blood Culture - Preliminary NO GROWTH OBTAINED AFTER 24 HOURS, INCUBATION TO CONTINUE FOR 4 DAYS. 08/09/17 10:12 Blood - Peripheral Venous Blood Culture - Preliminary NO GROWTH OBTAINED AFTER 24 HOURS, INCUBATION TO CONTINUE FOR 4 DAYS. Laboratory Tests 08/03/17 08/04/17 08/10/17 07:50 06:00 07:45 WBC Hgb Hct Plt Count ESR 99 H BUN Creatinine Rheumatoid Factor < 10.0 AMBAR Screen Negative 08/10/17 08/10/17 07:45 07:45 WBC 10.7 H D Hgb 9.9 L Hct 29.8 L Plt Count 316 ESR BUN 19 H Creatinine 0.7 Rheumatoid Factor AMBAR Screen Assessment FUO currently resolved?? Issue of possible GI malignancy Plan Nothing further from ID standpoint Problem List - Problems (1) Condylomata acuminata in male Code(s): A63.0 - ANOGENITAL (VENEREAL) WARTS (2) Sepsis Code(s): A41.9 - SEPSIS, UNSPECIFIED ORGANISM Qualifiers: Sepsis type: sepsis due to unspecified organism Qualified Code(s): A41.9 - Sepsis, unspecified organism (3) UTI (urinary tract infection) Code(s): N39.0 - URINARY TRACT INFECTION, SITE NOT SPECIFIED Qualifiers: Urinary tract infection type: site unspecified Hematuria presence: without hematuria Qualified Code(s): N39.0 - Urinary tract infection, site not specified (4) Hepatitis C carrier Code(s): Z22.52 - (5) Mitral valve prolapse Code(s): I34.1 - NONRHEUMATIC MITRAL (VALVE) PROLAPSE (6) FUO (fever of unknown origin) Code(s): R50.9 - FEVER, UNSPECIFIED
--- NOTE | 2017-08-10 11:54 | PN ---
Progress Note, Physician History of Present Illness: Fevers and tachycardia improving, unresponsive on vent. - Current Medication List Current Medications: Active Medications Acetaminophen (Tylenol Oral Solution -) 650 mg PO Q6H PRN PRN Reason: PAIN LEVEL 6-10 Apixaban (Eliquis -) 5 mg PO BID [facility] Last Admin: 08/10/17 09:32 Dose: 5 mg Insulin Aspart (Novolog Vial Sliding Scale -) 1 vial SQ BIDAC [facility] PRN Reason: Protocol Last Admin: 08/10/17 06:32 Dose: Not Given Metoprolol Tartrate (Lopressor -) 50 mg GT BID [facility] Last Admin: 08/10/17 09:32 Dose: 50 mg Pantoprazole Sodium (Protonix Iv) 40 mg IVPUSH BID [facility] Last Admin: 08/10/17 09:32 Dose: 40 mg Tobramycin Sulfate (Tobrex Ophthalmic Solution -) 1 drop OD TID [facility] Last Admin: 08/10/17 05:09 Dose: 1 drop - Objective Vital Signs: Vital Signs Temperature 99.5 F 08/10/17 06:00 Pulse Rate 80 08/10/17 08:03 Respiratory Rate 17 08/10/17 09:36 Blood Pressure 133/65 08/10/17 06:00 O2 Sat by Pulse Oximetry (%) 100 08/10/17 08:03 Constitutional: Yes: No Distress, Calm Neck: Yes: Supple Cardiovascular: Yes: Pulse Irregular Respiratory: Yes: Mechanically Ventilated, Rhonchi Gastrointestinal: Yes: Normal Bowel Sounds, Soft Edema: Yes Edema: LLE: Trace, RLE: Trace Labs: CBC, BMP 08/10/17 07:45 08/10/17 07:45 INR, PTT INR 1.31 (0.82-1.09) H 08/08/17 07:15 Problem List - Problems (1) Chronic respiratory failure Code(s): J96.10 - CHRONIC RESPIRATORY FAILURE, UNSP W HYPOXIA OR HYPERCAPNIA Qualifiers: Respiratory failure complication: unspecified whether with hypoxia or hypercapnia Qualified Code(s): J96.10 - Chronic respiratory failure, unspecified whether with hypoxia or hypercapnia (2) Condylomata acuminata in male Code(s): A63.0 - ANOGENITAL (VENEREAL) WARTS (3) Quadriplegia, functional Code(s): R53.2 - FUNCTIONAL QUADRIPLEGIA (4) Rapid atrial fibrillation Code(s): I48.91 - UNSPECIFIED ATRIAL FIBRILLATION (5) Sepsis Code(s): A41.9 - SEPSIS, UNSPECIFIED ORGANISM Qualifiers: Sepsis type: sepsis due to unspecified organism Qualified Code(s): A41.9 - Sepsis, unspecified organism (6) Mitral valve prolapse Code(s): I34.1 - NONRHEUMATIC MITRAL (VALVE) PROLAPSE Assessment/Plan 08/01/2017 Echo: Normal biventricular size and fxn 1. Persistent atrial fibrillation with periods of rapid ventricular response, [id number] score of 2 on A/C 2. CAD angina pectoris with demand ischemia 3. Chronic respiratory failure post anoxic brain injury post cardiac arrest, post tracheaostomy and PEG insertion 4. Functional quadriplegia 5. DM 6. Sepsis genitourinary source resolved, + c diff Ag 7. Genital condylomata 8. Anemia of chronic disease 9. FUO resolved PLAN: 1. Continue Lopressor 50 bid 2. Continue Eliquis 5 bid 3. Monitor CBC and transfuse as needed maintaining Hgb equal or > 8.0 3. Chronic AC mode vent support 4. Enteral feeds 5. Observe off abx, f/u C&S
--- NOTE | 2017-08-10 16:25 | DS ---
Physical Examination Vital Signs: Vital Signs Temperature 98.2 F 08/10/17 10:00 Pulse Rate 65 08/10/17 13:46 Respiratory Rate 20 08/10/17 14:14 Blood Pressure 101/61 08/10/17 13:46 O2 Sat by Pulse Oximetry (%) 100 08/10/17 09:00 Constitutional: Yes: No Distress Cardiovascular: Yes: Pulse Irregular Respiratory: Yes: Diminished, Mechanically Ventilated Gastrointestinal: Yes: Normal Bowel Sounds, Soft. No: Tenderness Edema: Yes Edema: LLE: Trace, RLE: Trace Labs: CBC, BMP 08/10/17 07:45 08/10/17 07:45 Discharge Summary Reason For Visit: SEPSIS Current Active Problems Anemia (Acute) Atrial fibrillation (Acute) Chronic respiratory failure (Acute) Condylomata acuminata in male (Acute) Duodenum disorder (Acute) FUO (fever of unknown origin) (Acute) H/O typhoid fever (Acute) Quadriplegia, functional (Acute) Rapid atrial fibrillation (Acute) Rheumatic heart disease (Acute) Sepsis (Acute) Tracheostomy tube present (Acute) Transaminitis (Acute) UTI (urinary tract infection) (Acute) Hospital Course: ADMITTING HISTORY Patient is a 61 year old male with a significant past medical history of dry eye syndrome, GERD with esophagitis, rheumatic mitral valve disease, hypertension, chronic pressure ulcers, pain disorder, tracheostomy, anemia, hypotension, hypothyroid, anemia, typhoid fever. As per report, patient was at the [facility] where he currently resides. Staff found patient lethargic and was started on an peripheral IV line and administered Levaquin 500mg IV and Vancomycin 1 gram at 3.am. He was also given Tylenol. On exam, patient is lethargic, warm to touch, on mechanical ventilation. Has G tube, right groin sevilla catheter draining dark cory urine. He was noted to have a fever of 103F, tachycardia and a WBC of 14.7, + UA. Blood and cultures were drawn in the ED but pt received IV antibiotics prior to arrival. ER course was notable for: (1) meets sepsis criteria (2) Vanco & Zosyn (3) +ua, UC and BC pending Hospitalization Course Pt was evaluated by ID, Pulmonary-- on antibiotics Blood cultures and urine cultures negative sputum cultures positive for pseudomonas Had new onset Afib-- started on Eliquis and increased Metoprolol for rate control - seen by Cardiology. Echo -- normal LVEF, mild TR Pt had severe anemia - s/p 1 unit PRBC Recurrent fevers despite broad spectrum antibiotics-- recultures were negative CT chest, abd, pelvis-- ?duodenitis Seen by GI-- on Protonix BID -- as per family they do not want any aggressive measures Pt has been off antibiotics for a few days, negative blood cultures. Afebrile for 24 hours-- cleared for discharge to [facility] Condition: Improved - Instructions Disposition: [facility] - Home Medications Comprehensive Discharge Medication List: Ambulatory Orders Acetaminophen [Tylenol .Extra-Strength -] 500 mg GT Q6H PRN 07/31/17 Albuterol Sulfate Inhaler - [Ventolin HFA Inhaler -] 2 inh IH Q6H 07/31/17 Hypromellose 0.5% Opth Soln [Artificial Tears] 1 drop QID 07/31/17 Levothyroxine [Synthroid -] 25 mcg GT 0600 07/31/17 Sennosides [Senna] 8.8 mg GT DAILY 07/31/17 Apixaban [Eliquis -] 5 mg PO BID #90 tablet 08/10/17 Metoprolol Tartrate [Lopressor -] 50 mg GT BID #60 tablet 08/10/17 Pantoprazole Suspension [Protonix Packets For Oral Suspension -] 40 mg GT DAILY #20 packet 08/10/17 Pantoprazole Suspension [Protonix Packets For Oral Suspension -] 40 mg NGT BID # 14 packet 08/10/17
[2017-08-10] MEDS ORDERED: INSULIN (NOVOLOG) ASPART 100 UNITS/ML 10ML VIAL ONE (16:48)
[2017-08-11] MEDS: TOBRAMYCIN 0.3% OPHTH SOLN 5 ML BOTTLE OD SCH (06:10)
[2017-08-11] MEDS: INSULIN SLIDING SCALE (NOVOLOG) 1 VIAL SQ SCH (06:36)
[2017-08-11] MEDS ORDERED: PT OWN MED DRAWER 7, Y5N ONE (07:10)
[2017-08-11] MEDS: PANTOPRAZOLE SODIUM 40 MG VIAL IVPUSH SCH (10:44)
[2017-08-11] MEDS: METOPROLOL TARTRATE 50 MG TABLET (FP) GT SCH (10:45)
[2017-08-11] MEDS: APIXABAN 5 MG TABLET PO SCH (10:45)
[2017-08-11 11:31] VITALS: BP 109/60; PULSE 114; TEMP 98.9
--- NOTE | 2017-08-11 12:17 | PN ---
Progress Note (short form) - Note Progress Note: Comfortable No new issues Vital Signs Temp 98.9 F 08/11/17 10:00 Pulse 114 H 08/11/17 10:00 Resp 21 08/11/17 11:34 BP 109/60 08/11/17 10:00 Pulse Ox 99 08/11/17 11:35 Intake & Output 08/10/17 08/11/17 08/11/17 23:59 11:59 23:59 Intake Total 1080 1080 Output Total 650 250 Balance 430 830 Intake: Tube Feeding 720 720 Tube Irrigant 360 360 Output: Urine 650 250 Supra Pubic Tube 650 250 Other: Voiding Method Indwelling Catheter Indwelling Catheter Bowel Movement No Active Medications Acetaminophen (Tylenol Oral Solution -) 650 mg PO Q6H PRN PRN Reason: PAIN LEVEL 6-10 Apixaban (Eliquis -) 5 mg PO BID [facility] Last Admin: 08/11/17 10:45 Dose: 5 mg Insulin Aspart (Novolog Vial Sliding Scale -) 1 vial SQ BIDAC [facility] PRN Reason: Protocol Last Admin: 08/11/17 06:36 Dose: Not Given Metoprolol Tartrate (Lopressor -) 50 mg GT BID [facility] Last Admin: 08/11/17 10:45 Dose: 50 mg Pantoprazole Sodium (Protonix Iv) 40 mg IVPUSH BID [facility] Last Admin: 08/11/17 10:44 Dose: 40 mg Tobramycin Sulfate (Tobrex Ophthalmic Solution -) 1 drop OD TID [facility] Last Admin: 08/11/17 06:10 Dose: 1 drop CBC, BMP 08/10/17 07:45 08/10/17 07:45 Microbiology 08/09/17 10:12 Blood Culture - Preliminary Blood - Peripheral Venous NO GROWTH OBTAINED AFTER 48 HOURS, INCUBATION TO CONTINUE FOR 3 DAYS. 08/09/17 10:45 Blood Culture - Preliminary Blood - Peripheral Venous NO GROWTH OBTAINED AFTER 48 HOURS, INCUBATION TO CONTINUE FOR 3 DAYS. Physical Constitutional: Yes: No Distress Cardiovascular: Yes: Pulse Irregular Respiratory: Yes: Diminished, Mechanically Ventilated Gastrointestinal: Yes: Normal Bowel Sounds, Soft. No: Tenderness Edema: Yes Edema: LLE: Trace, RLE: Trace A/P Stable Problems as listed Anticipate d/c to [facility] today. Discussed with nursing staff also.
== END 2017-08-11 13:23 | DRG 870 ==
LOC: JER 05:02 → JERBED 08:48 → J5S 11:37
PROVIDERS: ADMIT Internal Medicine; ATTEND Internal Medicine
PROC: 5A1955Z Respiratory Ventilation, Greater than 96 Consecutive Hours (ICD-10-PCS; principal; 2017-07-31)
PROC: 30233H1 Transfusion of Nonautologous Whole Blood into Peripheral Vein, Percutaneous Approach (ICD-10-PCS; 2017-08-07)
DX: A41.9 Sepsis, unspecified organism (principal); R53.2 Functional quadriplegia; A51.31 Condyloma latum; N39.0 Urinary tract infection, site not specified; J96.10 Chronic respiratory failure, unspecified whether with hypoxia or hypercapnia; I24.8 Other forms of acute ischemic heart disease; J90 Pleural effusion, not elsewhere classified; I48.1 Persistent atrial fibrillation; K21.0 Gastro-esophageal reflux disease with esophagitis; I10 Essential (primary) hypertension; Z93.0 Tracheostomy status; D64.9 Anemia, unspecified; E03.9 Hypothyroidism, unspecified; I05.9 Rheumatic mitral valve disease, unspecified; Z66 Do not resuscitate; L89.152 Pressure ulcer of sacral region, stage 2; Z87.891 Personal history of nicotine dependence; Z93.1 Gastrostomy status; H10.9 Unspecified conjunctivitis; Z86.19 Personal history of other infectious and parasitic diseases; E11.9 Type 2 diabetes mellitus without complications; E87.6 Hypokalemia; D63.8 Anemia in other chronic diseases classified elsewhere; A63.0 Anogenital (venereal) warts; Z86.74 Personal history of sudden cardiac arrest; Z93.50 Unspecified cystostomy status; I48.0 Paroxysmal atrial fibrillation; J44.9 Chronic obstructive pulmonary disease, unspecified; N31.9 Neuromuscular dysfunction of bladder, unspecified; K80.80 Other cholelithiasis without obstruction; K31.9 Disease of stomach and duodenum, unspecified; R74.0 Nonspecific elevation of levels of transaminase and lactic acid dehydrogenase [LDH]; B96.89 Other specified bacterial agents as the cause of diseases classified elsewhere; I25.119 Atherosclerotic heart disease of native coronary artery with unspecified angina pectoris; H04.129 Dry eye syndrome of unspecified lacrimal gland
CPT/HCPCS: 36415; 36430; 71045-TC-FY; 71250-TC; 74176-TC; 76705-TC; 80048; 80053; 80076; 81003; 81015; 82105; 82140; 82150; 82550; 82553; 82803; 82962; 83605; 83690; 84443; 84484; 85025; 85610; 85651; 85730; 86038; 86140; 86301; 86431; 86593; 86704; 86706; 86708; 86850; 86900; 86901; 86922; 87040; 87045; 87046; 87070; 87086; 87186; 87205; 87324; 87340; 87389; 87449; 93005; 93010; 93306-TC; 94002; 97161-GP; 99285-25; G0480; J0131; J7030; P9038; P9058

== ENCOUNTER 2017-08-30 11:35 | Inpatient (IN) | payer OTHER ==
--- NOTE | 2017-08-30 12:14 | PDOC ---
History of Present Illness <Dali Delong - Last Filed: 08/30/17 15:08> - General History Source: EMS Exam Limitations: Clinical Condition - History of Present Illness Initial Comments: 62 yo M sent by [place] for evaluation for dysfunction of suprapubic catheter ( placed by IR at another facility), found to have HR 170s. Patient nonverbal, with tracheostomy on a vent, unable to provide history. <Xin Flor - Last Filed: 09/02/17 07:56> - General Chief Complaint: Tachycardia Stated Complaint: EVALUATION Time Seen by Provider: 08/30/17 12:10 Past History <Dali Delong - Last Filed: 08/30/17 15:08> - Past Medical History Anemia: Yes Asthma: No Cancer: No Cardiac Disorders: Yes (RHEUMATIC MITRAL VALVE DISEASE) CVA: No COPD: Yes CHF: No Dementia: No Diabetes: No GI Disorders: No Disorders: No HTN: Yes Hypercholesterolemia: No Kidney Stones: No Liver Disease: No Seizures: Yes (drug related seizure 12/2012) Thyroid Disease: Yes (HYPOTHYROID) - Surgical History Abdominal Surgery: No Appendectomy: No Cardiac Surgery: No Cholecystectomy: No Lung Surgery: No Neurologic Surgery: No Orthopedic Surgery: No - Reproductive History Testicular Surgery: No - Suicide/Smoking/Psychosocial Hx Smoking History: Never smoked Have you smoked in the past 12 months: No If you are a former smoker, when did you quit?: 9 years ago Information on smoking cessation initiated: No Hx Alcohol Use: No Drug/Substance Use Hx: No Substance Use Type: Tranquilizers Hx Substance Use Treatment: Yes ([facility]) <Xin Flor - Last Filed: 09/02/17 07:56> - Past Medical History Allergies/Adverse Reactions: Allergies Allergy/AdvReac Type Severity Reaction Status Date / Time No Known Allergies Allergy Verified 05/26/13 15:18 Home Medications: Ambulatory Orders Acetaminophen [Tylenol .Extra-Strength -] 500 mg GT Q6H PRN 07/31/17 Albuterol Sulfate Inhaler - [Ventolin HFA Inhaler -] 2 inh IH Q6H 07/31/17 Hypromellose 0.5% Opth Soln [Artificial Tears] 1 drop QID 07/31/17 Levothyroxine [Synthroid -] 25 mcg GT 0600 07/31/17 Sennosides [Senna] 8.8 mg GT DAILY 07/31/17 Apixaban [Eliquis -] 5 mg PO BID #90 tablet 08/10/17 Metoprolol Tartrate [Lopressor -] 50 mg GT BID #60 tablet 08/10/17 Pantoprazole Suspension [Protonix Packets For Oral Suspension -] 40 mg GT DAILY #20 packet 08/10/17 Pantoprazole Suspension [Protonix Packets For Oral Suspension -] 40 mg NGT BID # 14 packet 08/10/17 *Physical Exam - Vital Signs Last Vital Signs Temp Pulse Resp BP Pulse Ox 98.1 F 166 H 20 120/85 100 08/30/17 11:58 08/30/17 14:04 08/30/17 14:04 08/30/17 14:04 08/30/17 14:04 <Dali Delong - Last Filed: 08/30/17 15:08> - Vital Signs Last Vital Signs Temp Pulse Resp BP Pulse Ox 98.1 F 160 H 18 88/69 100 08/30/17 11:58 08/30/17 11:58 08/30/17 11:58 08/30/17 11:58 08/30/17 11:58 - Physical Exam Comments: GENERAL: Awake, nonverbal, in no acute distress HEAD: No signs of trauma EYES: PERRLA, EOMI, sclera anicteric, conjunctiva clear ENT: Auricles normal inspection, hearing grossly normal, nares patent, oropharynx clear without exudates. Moist mucosa NECK: Normal ROM, supple, no lymphadenopathy, JVD, or masses. +Tracheostomy. LUNGS: Good air entry B/L with scattered rhonchi. HEART: Tachycardic, irregularly irregular, normal S1 and S2, no murmurs, rubs or gallops ABDOMEN: Soft, nontender, normoactive bowel sounds. No guarding, no rebound. No masses. EXTREMITIES: Extremities contracted, +mild muscle rigidity with clonus upon passive movements. No edema. No clubbing or cyanosis. No cords, erythema, or tenderness NEUROLOGICAL: +Quadriplegia. +Muscle rigidity to extremities as mentioned above. Nonverbal. Does not follow commands. SKIN: Warm, Dry, normal turgor, no rashes or lesions noted. : +Condylomata acuminata. <Xin Flor - Last Filed: 09/02/17 07:56> Heart Score/ECG Review - ECG Impressions Comment:: EKG read 13:23- afib with RVR rate 154 bpm <Xin Flor - Last Filed: 09/02/17 07:56> ED Treatment Course - LABORATORY CBC & Chemistry Diagram: 08/30/17 12:20 08/30/17 12:20 - ADDITIONAL ORDERS Additional order review: Laboratory Results 08/30/17 08/30/17 08/30/17 12:20 12:20 12:20 PT with INR INR PTT (Actin FS) VBG pH 7.44 H POC VBG pCO2 44.5 POC VBG pO2 42.6 Mixed VBG HCO3 29.8 H Sodium 140 Potassium 4.2 Chloride 103 Carbon Dioxide 31 Anion Gap 6 L BUN 22 H Creatinine 0.6 L Creat Clearance w eGFR > 60 Random Glucose 110 H D Lactic Acid 1.6 Calcium 8.7 Total Bilirubin 0.3 AST 19 D ALT 24 D Alkaline Phosphatase 64 D Troponin I < 0.02 D Total Protein 6.8 Albumin 2.6 L D 08/30/17 12:20 PT with INR 15.20 H INR 1.35 H PTT (Actin FS) 34.2 VBG pH POC VBG pCO2 POC VBG pO2 Mixed VBG HCO3 Sodium Potassium Chloride Carbon Dioxide Anion Gap BUN Creatinine Creat Clearance w eGFR Random Glucose Lactic Acid Calcium Total Bilirubin AST ALT Alkaline Phosphatase Troponin I Total Protein Albumin 08/30/17 12:20 RBC 2.99 L MCV 99.6 H MCHC 33.8 RDW 15.0 MPV 10.4 Neutrophils % 66.4 Lymphocytes % 23.3 D Monocytes % 5.5 Eosinophils % 4.5 Basophils % 0.3 - Medications Given in the ED: ED Medications Discontinued Medications Generic Name Dose Route Start Last Admin Trade Name Freq PRN Reason Stop Dose Admin Diltiazem HCl 10 mg 08/30/17 12:19 08/30/17 12:26 Cardizem Injection - IVPUSH 08/30/17 12:20 10 mg ONCE ONE Administration Diltiazem HCl 10 mg 08/30/17 12:56 08/30/17 13:05 Cardizem Injection - IVPUSH 08/30/17 12:57 10 mg ONCE ONE Administration Diltiazem HCl 10 mg 08/30/17 13:40 08/30/17 13:57 Cardizem Injection - IVPUSH 08/30/17 13:41 10 mg ONCE ONE Administration Sodium Chloride 1,000 mls @ 1,000 mls/hr 08/30/17 12:28 08/30/17 12:46 Normal Saline - IV 08/30/17 13:27 1,000 mls/hr ASDIR STA Administration Sodium Chloride 1,000 mls @ 1,000 mls/hr 08/30/17 12:56 08/30/17 13:26 Normal Saline - IV 08/30/17 13:55 1,000 mls/hr ASDIR STA Administration <Dali Delong - Last Filed: 08/30/17 15:08> - LABORATORY CBC & Chemistry Diagram: 09/02/17 05:52 09/02/17 05:52 <Xin Flor - Last Filed: 09/02/17 07:56> Medical Decision Making - Medical Decision Making 08/30/17 14:36 Dr. Luann Banuelos was paged and notified via phone service. Second page was placed at 15:09. <Dali Delong - Last Filed: 08/30/17 15:08> - Medical Decision Making 08/30/17 16:13 Case d/w Dr. Banuelos. Patient presented with displaced suprapubic pigtail, but found to have afib that has been difficult to control (has prior history of afib ). I have given cardizem and lopressor, still in afib. Will start cardizem drip and discuss with ICU for admission. Dr. Banuelos accepts for admission. 08/30/17 16:21 D/w Dr. Maxwell, accepted to ICU. <Xin Flor - Last Filed: 09/02/17 07:56> *DC/Admit/Observation/Transfer <Dali Deolng - Last Filed: 08/30/17 15:08> - Discharge Dispostion Decision to Admit order: Yes <Xin Flor - Last Filed: 09/02/17 07:56> Diagnosis at time of Disposition: Atrial fibrillation Qualifiers: Atrial fibrillation type: unspecified Qualified Code(s): I48.91 - Unspecified atrial fibrillation - Discharge Dispostion Condition at time of disposition: Critical
[2017-08-30] MEDS ORDERED: dilTIAZem HCL 50 MG/10 ML - 10 ML VIAL IVPUSH ONE ×3 (12:19→13:40)
[2017-08-30] MEDS ORDERED: dilTIAZem HCL 125 MG/25 ML - 25 ML VIAL ONE ×3 (12:25→16:17)
[2017-08-30] MEDS ORDERED: SODIUM CHLORIDE 1,000 ML IV STA ×3 (12:28→15:26)
[2017-08-30 12:38] LABS: BASO % 0.3 % (0-2.0); EOS % 4.5 % (0-4.5); HEMATOCRIT 29.8 % (35.4-49); HEMOGLOBIN 10.1 GM/dL (11.7-16.9); LYMPH % 23.3 % (8-40); MCH 33.7 pg (25.7-33.7); MCHC 33.8 g/dl (32.0-35.9); MEAN CELL VOLUME 99.6 fl (80-96); MEAN PLT VOLUME 10.4 fl (7.5-11.1); MONO % 5.5 % (3.8-10.2); NEUT % 66.4 % (42.8-82.8); PLATELET COUNT 152 K/MM3 (134-434); RBC 2.99 M/mm3 (4.00-5.60); VENOUS PC02 44.5 mmHg (38-52); VENOUS PH 7.44 (7.32-7.42); VENOUS PO2 42.6 mmHg (28-48)
[2017-08-30 12:58] LABS: CHLORIDE 103 mmol/L (98-107); POTASSIUM 4.2 mmol/L (3.5-5.1); SODIUM 140 mmol/L (136-145)
[2017-08-30 13:00] LABS: INR 1.35 (0.82-1.09); PROTHROMBIN TIME (PATIENT) 15.2 SEC (9.7-13.0)
[2017-08-30 13:03] LABS: ACTIVATED PTT 34.2 SECONDS (26.9-34.4)
[2017-08-30 13:10] LABS: ALBUMIN 2.6 g/dl (3.4-5.0); ALK PHOS 64 U/L (45-117); ANION GAP 6 (8-16); BILIRUBIN,TOTAL 0.3 mg/dL (0.2-1.0); BLOOD UREA NITROGEN 22 mg/dL (7-18); CALCIUM 8.7 mg/dL (8.5-10.1); CO2 31 mmol/L (21-32); CREATININE 0.6 mg/dL (0.7-1.3); GLUCOSE,RANDOM 110 mg/dL (74-106); SGOT/AST 19 U/L (15-37); SGPT/ALT 24 U/L (12-78); TOT PROT 6.8 g/dl (6.4-8.2)
[2017-08-30] MEDS ORDERED: METOPROLOL TARTRATE 5 MG/5 ML VIAL IVPUSH ONE ×2 (15:26→22:27)
[2017-08-30] MEDS ORDERED: dilTIAZem HCL 50 MG/10 ML - 10 ML VIAL ONE (16:13)
[2017-08-30] MEDS: DILTIAZEM INJECTION 125 MG in SODIUM CHLORIDE 100 ML IVPB SCH (16:15)
[2017-08-30] MEDS ORDERED: ACETAMINOPHEN 500 MG TABLET (FP) GT PRN (16:23)
[2017-08-30] MEDS ORDERED: ALBUTEROL SO4 18 GM HFA INHALER IH PRN (16:30)
--- NOTE | 2017-08-30 16:32 | EKG ---
Test Reason : Blood Pressure : / mmHG Vent. Rate : 154 BPM Atrial Rate : 394 BPM P-R Int : 000 ms QRS Dur : 084 ms QT Int : 294 ms P-R-T Axes : 000 -21 078 degrees QTc Int : 470 ms POOR DATA QUALITY, INTERPRETATION MAY BE ADVERSELY AFFECTED ATRIAL FIBRILLATION WITH RAPID VENTRICULAR RESPONSE ANTERIOR INFARCT (CITED ON OR BEFORE 31-JUL-2017) ABNORMAL ECG WHEN COMPARED WITH ECG OF 31-JUL-2017 20:35, QUESTIONABLE CHANGE IN INITIAL FORCES OF SEPTAL LEADS Confirmed by FERNANDA ROY, MARLON ([id number]) on 08/30/2017 4:31:30 PM Referred By: Confirmed By:MARLON MICHAEL MD
[2017-08-30 17:38] LABS: URINE APPEARANCE CLEAR; URINE BILIRUBIN NEGATIVE (<2.0 mg/dL); URINE BLOOD 3+ (NEGATIVE); URINE COLOR LTYELLOW; URINE GLUCOSE (UA) NEGATIVE (NEGATIVE); URINE KETONE NEGATIVE (NEGATIVE); URINE LEUK ESTERASE 2+ (NEGATIVE); URINE NITRITE NEGATIVE (NEGATIVE); URINE PROTEIN 1+ (NEGATIVE); URINE UROBILINOGEN NEGATIVE mg/dL (0.2-1.0)
[2017-08-30 17:46] LABS: EPI CELLS RARE /HPF (FEW); URINE MUCUS RARE
[2017-08-30] MEDS ORDERED: METOPROLOL TARTRATE 50 MG TABLET (FP) GT SCH ×2 (22:00→23:48)
--- NOTE | 2017-08-30 22:02 | CONSULT ---
Consult - text type - Consultation Consultation Note: Pulm/CCM Pt seen and examined CC: atrial fibrillation with RVR HPI: Briefly Mr Wagoner is a 61 year old male with a significant past medical history of dry eye syndrome, GERD with esophagitis, rheumatic mitral valve disease, hypertension, chronic pressure ulcers, functional quadraplegia, pain disorder, chronic tracheostomy, anemia, hypotension, hypothyroid, anemia, typhoid fever, chronically vented in NH (it is unclear why he is vent dependent) . Was sent to ED for dysfunction of supra pubic cath, underwent replacement in IR, found to be in afib RVR, normotensive. Pt on BB. Given 4L IV fluid, with poor UOP recorded, required IV cardizem x 2, started on cardizem gtt for RVR as high as 170. Send to ICU for management of RVR. No other interval hx. No report of sick prodrome, changes in medications or vent settings. Pt poorly responsive at baseline, withdrawals from stimuli only. In ICU pt with temp 99.5, UA noted for 2+ LE and numerous red/white cells. There is enlarging effusion and LL opacity on CXR c/f pneumonia. Pt has MDR PSA on sput cxl from last admission in July but did not require full course of abx (received Pip/eliot). Was seen by Dr Conrad. There is some secretions with suctioning. Singele dose of IV vanco and pip eliot given, full set of cxl sent. HR down to 110-130 with lopressor and cardizem. BP stable. Past Medical History Cardio/Vascular AFIB,HTN,Mitral Insufficiency Pulmonary COPD Gastrointestinal Constipation,GERD,Other Hepatobiliary Cholelithiasis,Hepatitis C Renal/ Neurogenic Bladder Heme/Onc Anemia Infectious Disease Other Psych Addictions ENT Other Endocrine Hypothyroidism PSHX -trach -supra pubic cath Smoking History Smoking history Never smoked If you are a former smoker, 9 years ago when did you quit? Alcohol/Substance Use Hx Alcohol Use No CBCD WBC 7.0 K/mm3 (4.0-10.0) D 08/30/17 12:20 RBC 2.99 M/mm3 (4.00-5.60) L 08/30/17 12:20 Hgb 10.1 GM/dL (11.7-16.9) L 08/30/17 12:20 Hct 29.8 % (35.4-49) L 08/30/17 12:20 MCV 99.6 fl (80-96) H 08/30/17 12:20 MCHC 33.8 g/dl (32.0-35.9) 08/30/17 12:20 RDW 15.0 % (11.9-15.9) 08/30/17 12:20 Plt Count 152 K/MM3 (134-434) D 08/30/17 12:20 MPV 10.4 fl (7.5-11.1) 08/30/17 12:20 CMP Sodium 140 mmol/L (136-145) 08/30/17 12:20 Potassium 4.2 mmol/L (3.5-5.1) 08/30/17 12:20 Chloride 103 mmol/L (98-107) 08/30/17 12:20 Carbon Dioxide 31 mmol/L (21-32) 08/30/17 12:20 Anion Gap 6 (8-16) L 08/30/17 12:20 BUN 22 mg/dL (7-18) H 08/30/17 12:20 Creatinine 0.6 mg/dL (0.7-1.3) L 08/30/17 12:20 Creat Clearance w eGFR > 60 (>60) 08/30/17 12:20 Random Glucose 110 mg/dL (74-106) H D 08/30/17 12:20 Calcium 8.7 mg/dL (8.5-10.1) 08/30/17 12:20 Total Bilirubin 0.3 mg/dL (0.2-1.0) 08/30/17 12:20 AST 19 U/L (15-37) D 08/30/17 12:20 ALT 24 U/L (12-78) D 08/30/17 12:20 Alkaline Phosphatase 64 U/L (45-117) D 08/30/17 12:20 Total Protein 6.8 g/dl (6.4-8.2) 08/30/17 12:20 Albumin 2.6 g/dl (3.4-5.0) L D 08/30/17 12:20 CARDIAC ENZYMES Troponin I < 0.02 ng/ml (0.00-0.05) D 08/30/17 12:20 Vital Signs Temp 98.8 F 08/30/17 21:24 Pulse 147 H 08/30/17 20:59 Resp 18 08/30/17 19:49 BP 122/90 08/30/17 20:59 Pulse Ox 98 08/30/17 17:50 Intake & Output 08/29/17 08/30/17 08/30/17 23:59 11:59 23:59 Intake Total 3000 Balance 3000 Weight 90.718 kg Intake: IV 3000 Cardizem Injection - 125 1000 mg In Normal Saline - 100 ml @ 5 MG/HR 5 mls/hr IVPB TITR JESUS Rx#: [id number] Normal Saline - 1,000 ml 1000 @ 1000 mls/hr IV ASDIR STA Rx#:[id number] Normal Saline - 1,000 ml 1000 @ 1000 mls/hr IV ASDIR STA Rx#:[id number] Other: Height 5 ft 10 in Body Mass Index (BMI) 28.7 Weight Measurement Method Estimated by Staff ROS unable due to pt condition. PE: Gen: poorly responsive man, trached/vented, chronically ill appearing HENT: trach CDI, PERRL PULM: scattered rhonchi, diminished bases L>R CV: irreg, tachy, unable to appreciate murmur ABD: PEG cdi, supra public cath with some hematuria EXT: venous stasis changes, 2+ pitting depend edema DTI on R heel, stage IV 2x2 sacral without exudate some surrounding eschar A/P Atrial Fibrillation with RVR possible UTI Sepsis Chronic Respiratory Failure/vent dep DM Functional Quadriplegia - Cardizem gtt - PO BB, will uptitrate - suggest ID in am if still concern for sepsis regarding approp abx given PSA hx - f/u cultures, if recurrent febrile will need thora but on eliquis - on anticoagulation, hold - no appropriate for vent weaning - start enteral feeds in am - follow UOP Tana ACNP [id number] 35 min CCT
[2017-08-30] MEDS ORDERED: ACETAMINOPHEN 325 MG TABLET (FP) PO PRN (22:25)
[2017-08-30] MEDS ORDERED: METOPROLOL TARTRATE 5 MG/5 ML VIAL ONE (22:47)
[2017-08-30] MEDS ORDERED: dilTIAZem HCL 25 MG/5 ML - 5 ML VIAL ONE (22:48)
[2017-08-30] MEDS ORDERED: PIPERACILLIN/TAZOB 4.5 GM 4.5 GM in DEXTROSE 5%-WATER 100 ML IVPB ONE (23:00)
[2017-08-30] MEDS ORDERED: VANCOMYCIN 1,000 MG in DEXTROSE 5%-WATER - 250 ML IVPB ONE (23:00)
[2017-08-30] MEDS: APIXABAN 5 MG TABLET PO SCH (23:00)
[2017-08-31] MEDS ORDERED: DEXTROSE 5%-WATER 100 ML IVPB ONE (00:19)
[2017-08-31] MEDS ORDERED: PIPERACILLIN/TAZOBACTAM 4.5 GM VIAL IVPB ONE (00:19)
[2017-08-31] MEDS: LEVOTHYROXINE NA 25 MCG TABLET (FP) GT SCH (06:17)
--- NOTE | 2017-08-31 08:33 | PN ---
Progress Note (short form) - Note Progress Note: S: Briefly, patient came to ER bc suprapubic cath was becoming dislodged. At same time had RVR. BP 80s/60s on admission which responded well to fluids. Went for IR guided catheter replacement while on cardizem ggt. Found to have +UA with L sided consolidation (although seen in prior imaging). Received vanc/zosyn in ER. -- On Cardizem 15/hr whole night -- HR improved from 160s --> 120s O: Vital Signs Period Temp Pulse Resp BP Sys/Bhardwaj Pulse Ox Last 24 Hr 98.1 F-99.3 F 88-166 12-153 88-124/64-103 98-100 GEN: Nonverbal, on vent, lying comfortably HEENT: Trach, vent, PERRL, EOMi CV: S1, S2, RRR, tachycardic rate, reg rhythm LUNG: CTAB ABD: Soft, NT, ND, MSK: No edema, no erythema, lobulated penis NEURO: Nonverbal, moves grossly symmetrically A/P: 61yo M with PMHx of Afib, functional quadriplegia, chronic trach, vent dependent , recent IR replacement of suprapubic catheter who was sent to ER for Afib w/ RVR. # Afib w/ RVR -- Afib diagnosed on last admission this month. Could be irritation from tube dislodgement. Was on Cardizem drip 15/hr and Lopressor 50 BID via GT. HR still 120s. Increased Lopressor to TID. Will weaning off drip now by switching to 60 TID. If BP cannot tolerate, can give IVF boluses. If On Eliquis 5 BID. Cardio on board # Hypothyroidism -- On Synthroid, TSH shows relative hypothyroid state. # Asymptomatic pyuria -- +UA w/p fevers or wbc count. Not treating amparo. # L lung consolidation -- Was treated for pseudomonas pneumonia, placed on BSAbx, likely residual from that. No ventilation issues. # FEN/PPx -- No IVF amparo, tube feeds, Eliquis # Dispo -- Keep in ICU for now until can be fully transitioned to PO Elizabeth Mcnulty MD - PGY1 Resident ICU
[2017-08-31] MEDS ORDERED: PT OWN MED DRAWER 7, Y5N ONE (09:31)
[2017-08-31] MEDS: APIXABAN 5 MG TABLET PO SCH ×2 (09:39→22:44)
[2017-08-31] MEDS: PANTOPRAZOLE SOD 40 MG SUSPENSION PACKET PEG SCH (09:39)
[2017-08-31] MEDS: SENNOSIDES 8.8 MG/5 ML BULK BOTTLE GT SCH (09:40)
[2017-08-31] MEDS: DILTIAZEM INJECTION 125 MG in SODIUM CHLORIDE 100 ML IVPB SCH (09:41)
[2017-08-31 10:14] LABS: HEMATOCRIT 27.6 % (35.4-49); HEMOGLOBIN 9.4 GM/dL (11.7-16.9); MCH 33.6 pg (25.7-33.7); MCHC 33.9 g/dl (32.0-35.9); MEAN CELL VOLUME 99.1 fl (80-96); MEAN PLT VOLUME 10.3 fl (7.5-11.1); PLATELET COUNT 158 K/MM3 (134-434); RBC 2.79 M/mm3 (4.00-5.60); RDW 14.5 % (11.9-15.9); WHITE BLOOD COUNT 7.8 K/mm3 (4.0-10.0)
--- NOTE | 2017-08-31 10:30 | HP ---
Admitting History and Physical - Primary Care Physician PCP: Danyelle Sheppard - Admission Chief Complaint: rapid Afib History of Present Illness: Sent from [facility] for dislodged Suprapubic catheter Was found to be in rapid Afib-- could not control in ER and was sent to ICU for further management History Source: Medical Record Limitations to Obtaining History: Intubated - Past Medical History Cardiovascular: Yes: AFIB (paroxysmal), HTN, Mitral Insufficiency (? rheumatic) Pulmonary: Yes: COPD (ventilator dependent with tracheostomy) Gastrointestinal: Yes: Constipation, GERD, Other (Feeding gastrostomy tube) Hepatobiliary: Yes: Cholelithiasis, Hepatitis C (by other's history) Renal/: Yes: Neurogenic Bladder (with suprapubic cystostomy) Heme/Onc: Yes: Anemia Infectious Disease: Yes: Other (genital condylomata, ? 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 Cardiac arrest, wide complex tachycardia , CAD,Anoxic brain injury , vegetative stae, trach and PEG status, cardioversion 06/07 - Smoking History Smoking history: Never smoked Have you smoked in the past 12 months: No If you are a former smoker, when did you quit?: 9 years ago - Alcohol/Substance Use Hx Alcohol Use: No Home Medications - Allergies Allergies/Adverse Reactions: Allergies Allergy/AdvReac Type Severity Reaction Status Date / Time No Known Allergies Allergy Verified 05/26/13 15:18 - Home Medications Home Medications: Ambulatory Orders Acetaminophen [Tylenol .Extra-Strength -] 500 mg GT Q6H PRN 07/31/17 Albuterol Sulfate Inhaler - [Ventolin HFA Inhaler -] 2 inh IH Q6H 07/31/17 Hypromellose 0.5% Opth Soln [Artificial Tears] 1 drop QID 07/31/17 Levothyroxine [Synthroid -] 25 mcg GT 0600 07/31/17 Sennosides [Senna] 8.8 mg GT DAILY 07/31/17 Apixaban [Eliquis -] 5 mg PO BID #90 tablet 08/10/17 Metoprolol Tartrate [Lopressor -] 50 mg GT BID #60 tablet 08/10/17 Pantoprazole Suspension [Protonix Packets For Oral Suspension -] 40 mg GT DAILY #20 packet 08/10/17 Pantoprazole Suspension [Protonix Packets For Oral Suspension -] 40 mg NGT BID # 14 packet 08/10/17 Family Disease History - Family Disease History Family Disease History: CA: Mother, Respiratory: Father (emphysema, alcohol), Other: Father Review of Systems Unable to obtain ROS, reason: on trach Physical Examination Vital Signs: Vital Signs Temperature 98.5 F 08/31/17 06:00 Pulse Rate 121 H 08/31/17 09:41 Respiratory Rate 14 08/31/17 09:00 Blood Pressure 103/83 08/31/17 09:41 O2 Sat by Pulse Oximetry (%) 100 08/31/17 09:00 Constitutional: Yes: No Distress Cardiovascular: Yes: Tachycardia, Pulse Irregular Respiratory: Yes: Mechanically Ventilated Gastrointestinal: Yes: Normal Bowel Sounds, Soft, Abdomen, Obese, Other (GT). No: Distention, Tenderness Edema: Yes Labs: CBC, BMP 08/31/17 09:40 Imaging - Results EKG: Image Reviewed (Rapid Afib) Problem List - Problems (1) Atrial fibrillation Code(s): I48.91 - UNSPECIFIED ATRIAL FIBRILLATION Qualifiers: Atrial fibrillation type: unspecified Qualified Code(s): I48.91 - Unspecified atrial fibrillation (2) Mitral valve prolapse Code(s): I34.1 - NONRHEUMATIC MITRAL (VALVE) PROLAPSE (3) Seizure Code(s): R56.9 - UNSPECIFIED CONVULSIONS (4) Quadriplegia, functional Code(s): R53.2 - FUNCTIONAL QUADRIPLEGIA (5) Sepsis Code(s): A41.9 - SEPSIS, UNSPECIFIED ORGANISM Qualifiers: Sepsis type: sepsis due to unspecified organism Qualified Code(s): A41.9 - Sepsis, unspecified organism Assessment/Plan PLAN received multiple doses of Cardizem, lopressor Still in rapid Afib Cardiology eval -- spoke with Network Project Manager Received Zosyn and Vanco in ER cultures done Suprapubic cath replaced rate control-- Amiodarone drip BP low may need to resume antibiotics
[2017-08-31 10:31] LABS: ALBUMIN 2.4 g/dl (3.4-5.0); ANION GAP 7 (8-16); BILIRUBIN,TOTAL 0.6 mg/dL (0.2-1.0); BLOOD UREA NITROGEN 20 mg/dL (7-18); CALCIUM 8.7 mg/dL (8.5-10.1); CHLORIDE 108 mmol/L (98-107); CO2 28 mmol/L (21-32); CREATININE 0.6 mg/dL (0.7-1.3); GLUCOSE,RANDOM 102 mg/dL (74-106); PHOSPHOROUS 3.5 mg/dL (2.5-4.9); POTASSIUM 3.4 mmol/L (3.5-5.1); SGOT/AST 18 U/L (15-37); SODIUM 143 mmol/L (136-145); TOT PROT 6.2 g/dl (6.4-8.2)
[2017-08-31 10:37] LABS: ALK PHOS 62 U/L (45-117); SGPT/ALT 22 U/L (12-78)
--- NOTE | 2017-08-31 10:50 | CON.CARD ---
Consult Consult Specialty:: Cardiology Referred by:: Dr. Luann Banuelos Reason for Consultation:: Cardiac evaluation - History of Present Illness Chief Complaint: Rapid AF History of Present Illness: Patient is a 62 year old male sent in from [facility] with dislodged suprapubic catheter. He was found to be in atrial fibrillation with RVR and was transferred to ICU/telemetry bed. He has persistent atrial fibrillation and has been on Eliquis for past 1 month. He was in the hospital in latter part of July into beginning of August. He is on a ventilator via trache. Other PMH include mitral valve prolapse, previous substance abuse with Heroine and on Methadone, Hep C infection, PTSD, previous cardiac arrest resulting in anoxic brain injury and vent dependent. History was obtained from medical record. Heart rate is at 110-120's. He was placed on Cardizem drip. - History Source History Provided By: Medical Record Limitations to Obtaining History: Physical Impairment - Past Medical History Cardio/Vascular: Yes: AFIB (persistent), HTN, Mitral Insufficiency (? rheumatic) Pulmonary: Yes: COPD (ventilator dependent with tracheostomy), Previously Intubated Gastrointestinal: Yes: Constipation, GERD, Other (Feeding gastrostomy tube) Hepatobiliary: Yes: Cholelithiasis, Hepatitis C Renal/: Yes: Neurogenic Bladder (with suprapubic cystostomy) Infectious Disease: Yes: Other (genital condylomata, ? typhoid fever) ENT: Yes: Other (dry eye syndrome) Endocrine: Yes: Hypothyroidism - Alcohol/Substance Use Hx Alcohol Use: No History of Substance Use: reports: Heroin - Smoking History Smoking history: Never smoked Have you smoked in the past 12 months: No If you are a former smoker, when did you quit?: 9 years ago Home Medications - Allergies Allergies/Adverse Reactions: Allergies Allergy/AdvReac Type Severity Reaction Status Date / Time No Known Allergies Allergy Verified 05/26/13 15:18 - Home Medications Home Medications: Ambulatory Orders Acetaminophen [Tylenol .Extra-Strength -] 500 mg GT Q6H PRN 07/31/17 Albuterol Sulfate Inhaler - [Ventolin HFA Inhaler -] 2 inh IH Q6H 07/31/17 Hypromellose 0.5% Opth Soln [Artificial Tears] 1 drop QID 07/31/17 Levothyroxine [Synthroid -] 25 mcg GT 0600 07/31/17 Sennosides [Senna] 8.8 mg GT DAILY 07/31/17 Apixaban [Eliquis -] 5 mg PO BID #90 tablet 08/10/17 Metoprolol Tartrate [Lopressor -] 50 mg GT BID #60 tablet 08/10/17 Pantoprazole Suspension [Protonix Packets For Oral Suspension -] 40 mg GT DAILY #20 packet 08/10/17 Pantoprazole Suspension [Protonix Packets For Oral Suspension -] 40 mg NGT BID # 14 packet 08/10/17 Family Disease History - Family Disease History Family Disease History: CA: Mother, Respiratory: Father (emphysema, alcohol), Other: Father Review of Systems Unable to obtain ROS, reason: Unable to obtain Vital Signs: Vital Signs Temperature 98.6 F 08/31/17 10:00 Pulse Rate 113 H 08/31/17 10:00 Respiratory Rate 14 08/31/17 10:00 Blood Pressure 83/73 08/31/17 10:00 O2 Sat by Pulse Oximetry (%) 100 08/31/17 09:00 Neck: Yes: Supple Respiratory: Yes: Diminished, Mechanically Ventilated Gastrointestinal: Yes: Normal Bowel Sounds, Soft. No: Tenderness Cardiovascular: Yes: Tachycardia, Pulse Irregular JVD: No Carotid Bruit: No PMI: Non-Displaced Heart Sounds: Yes: S1, S2. No: Gallop Edema: Yes - Other Data Labs, Other Data: CBC, BMP 08/31/17 09:40 08/31/17 09:40 INR, PTT INR 1.35 (0.82-1.09) H 08/30/17 12:20 Troponin, BNP 08/30/17 12:20 Troponin I < 0.02 D Atrial fibrillation with RVR Imaging - Results Chest X-ray: Report Reviewed (Pleural effusion) EKG: Report Reviewed Problem List - Problems (1) Atrial fibrillation Code(s): I48.91 - UNSPECIFIED ATRIAL FIBRILLATION Qualifiers: Atrial fibrillation type: unspecified Qualified Code(s): I48.91 - Unspecified atrial fibrillation (2) Mitral valve prolapse Code(s): I34.1 - NONRHEUMATIC MITRAL (VALVE) PROLAPSE (3) Chronic respiratory failure Code(s): J96.10 - CHRONIC RESPIRATORY FAILURE, UNSP W HYPOXIA OR HYPERCAPNIA Qualifiers: Respiratory failure complication: unspecified whether with hypoxia or hypercapnia Qualified Code(s): J96.10 - Chronic respiratory failure, unspecified whether with hypoxia or hypercapnia (4) Quadriplegia, functional Code(s): R53.2 - FUNCTIONAL QUADRIPLEGIA (5) Rheumatic heart disease Code(s): I09.9 - RHEUMATIC HEART DISEASE, UNSPECIFIED (6) Sepsis Code(s): A41.9 - SEPSIS, UNSPECIFIED ORGANISM Qualifiers: Sepsis type: sepsis due to unspecified organism Qualified Code(s): A41.9 - Sepsis, unspecified organism (7) Tracheostomy tube present Code(s): Z93.0 - TRACHEOSTOMY STATUS Assessment/Plan 1. Atrial fibrillation with RVR 2. Ventilator dependent via trache 3. History of substance abuse 4. Organic brain/history of anoxic brain injury 5. History of cardiac arrest 6. ? sepsis PLAN: 1. Supportive management 2. Vent support 3. Continue Eliquis as tolerated 4. Continue Cardizem drip but if rate control is difficult with maximal dose of Cardizem drip, may try Amiodarone drip 5. Continue Metoprolol via G tube 6. Heredia culture 7. Thyroid replacement therapy Further plans are to follow. Danielleed Brian Boyer MD
[2017-08-31] MEDS ORDERED: METOPROLOL TARTRATE 50 MG TABLET (FP) GT SCH (14:00)
--- NOTE | 2017-08-31 14:01 | PN ---
Teaching Attending Note Name of Resident: Elizabeth Mcnulty ATTENDING PHYSICIAN STATEMENT I saw and evaluated the patient. I reviewed the resident's note and discussed the case with the resident. I agree with the resident's findings and plan as documented. SUBJECTIVE: Patient seen and examined in the ICU. Vented on AC Mode. Remains on IV Cardizem @ 15mg/hr for rate control. Intake & Output 08/28/17 08/29/17 08/30/17 08/31/17 23:59 23:59 23:59 23:59 Intake Total 3000 Output Total 50 300 Balance 2950 -300 Weight 204 lb 203 lb 12.8 oz Last Vital Signs Temp Pulse Resp BP Pulse Ox 99 F 112 H 17 92/76 100 08/31/17 12:13 08/31/17 12:13 08/31/17 13:28 08/31/17 12:13 08/31/17 12:10 Active Medications Acetaminophen (Tylenol -) 650 mg PO Q4H PRN PRN Reason: FEVER Albuterol Sulfate (Ventolin Hfa Inhaler -) 2 puff IH Q6H PRN PRN Reason: SHORTNESS OF BREATH Apixaban (Eliquis -) 5 mg PO BID [facility] Last Admin: 08/31/17 09:39 Dose: 5 mg Diltiazem HCl (Cardizem -) 60 mg GT TID [facility] Levothyroxine Sodium (Synthroid -) 25 mcg GT DAILY@0700 [facility] Last Admin: 08/31/17 06:17 Dose: 25 mcg Metoprolol Tartrate (Lopressor -) 50 mg GT TID [facility] Pantoprazole Sodium (Protonix Packets For Oral Suspension -) 40 mg PEG DAILY [facility] Last Admin: 08/31/17 09:39 Dose: 40 mg Senna (Senna Oral Solution -) 8.8 mg GT DAILY [facility] Last Admin: 08/31/17 09:40 Dose: 8.8 mg Gen: poorly responsive, trached/vented, chronically ill appearing HENT: trach CDI PULM: scattered rhonchi, diminished bases L>R CV: irregular ABD: PEG, supra public catheter EXT: venous stasis changes, 2+ pitting depend edema, DTI on R heel, stage IV 2x2 sacral without exudate some surrounding eschar Laboratory Results - last 24 hr 08/30/17 08/30/17 08/30/17 12:20 12:20 16:50 WBC RBC Hgb Hct MCV MCH MCHC RDW Plt Count MPV VBG pH 7.44 H POC VBG pCO2 44.5 POC VBG pO2 42.6 Mixed VBG HCO3 29.8 H Sodium Potassium Chloride Carbon Dioxide Anion Gap BUN Creatinine Creat Clearance w eGFR Random Glucose Lactic Acid 1.6 Calcium Phosphorus Magnesium Total Bilirubin AST ALT Alkaline Phosphatase Total Protein Albumin TSH Free T4 Urine Color Ltyellow Urine Appearance Clear Urine pH 7.0 Ur Specific [place] 1.053 H Urine Protein 1+ H Urine Glucose (UA) Negative Urine Ketones Negative Urine Blood 3+ H Urine Nitrite Negative Urine Bilirubin Negative Urine Urobilinogen Negative Ur Leukocyte Esterase 2+ H Urine WBC (Auto) 100 Urine RBC (Auto) 734 Ur Epithelial Cells Rare Urine Mucus Rare 08/31/17 08/31/17 08/31/17 09:40 09:40 09:40 WBC 7.8 RBC 2.79 L Hgb 9.4 L Hct 27.6 L MCV 99.1 H MCH 33.6 MCHC 33.9 RDW 14.5 Plt Count 158 MPV 10.3 VBG pH POC VBG pCO2 POC VBG pO2 Mixed VBG HCO3 Sodium 143 Potassium 3.4 L Chloride 108 H Carbon Dioxide 28 Anion Gap 7 L BUN 20 H Creatinine 0.6 L Creat Clearance w eGFR > 60 Random Glucose 102 Lactic Acid Calcium 8.7 Phosphorus 3.5 Magnesium 2.0 Total Bilirubin 0.6 D AST 18 ALT 22 Alkaline Phosphatase 62 Total Protein 6.2 L Albumin 2.4 L TSH 5.94 H D Free T4 1.32 H Urine Color Urine Appearance Urine pH Ur Specific [place] Urine Protein Urine Glucose (UA) Urine Ketones Urine Blood Urine Nitrite Urine Bilirubin Urine Urobilinogen Ur Leukocyte Esterase Urine WBC (Auto) Urine RBC (Auto) Ur Epithelial Cells Urine Mucus IMP: Atrial Fibrillation with RVR R/O UTI Chronic Respiratory Failure/vent dep DM Functional Quadriplegia - Wean Cardizem drip - Titrate rate control meds - Monitor off ABX for now - AC - Not appropriate for vent weaning - Enteral feeds - follow UOP Dr Sweeney Critical care time spent in reviewing chart, evaluating patient and formulating plan - 36 minutes.
[2017-08-31] MEDS ORDERED: ACETAMINOPHEN 650 MG/20.3 ML ORAL SOLUTION (CUPS) GT PRN (14:06)
[2017-08-31] MEDS: dilTIAZem HCL 60 MG TABLET (FP) GT SCH ×2 (14:46→22:44)
[2017-08-31] MEDS: METOPROLOL TARTRATE 50 MG TABLET (FP) GT SCH ×2 (15:02→22:47)
[2017-08-31] MEDS ORDERED: METOPROLOL TARTRATE 50 MG TABLET (FP) GT ONE (18:06)
[2017-09-01 06:14] LABS: HEMATOCRIT 27.9 % (35.4-49); HEMOGLOBIN 9.4 GM/dL (11.7-16.9); MCH 33.5 pg (25.7-33.7); MCHC 33.8 g/dl (32.0-35.9); MEAN CELL VOLUME 99.2 fl (80-96); MEAN PLT VOLUME 10.4 fl (7.5-11.1); PLATELET COUNT 148 K/MM3 (134-434); RBC 2.81 M/mm3 (4.00-5.60); RDW 14.8 % (11.9-15.9); WHITE BLOOD COUNT 7.2 K/mm3 (4.0-10.0)
[2017-09-01] MEDS: dilTIAZem HCL 60 MG TABLET (FP) GT SCH (06:25)
[2017-09-01] MEDS: LEVOTHYROXINE NA 25 MCG TABLET (FP) GT SCH (06:25)
[2017-09-01] MEDS: METOPROLOL TARTRATE 50 MG TABLET (FP) GT SCH ×6 (06:25→18:49)
[2017-09-01 06:37] LABS: ALBUMIN 2.3 g/dl (3.4-5.0); ANION GAP 8 (8-16); BLOOD UREA NITROGEN 19 mg/dL (7-18); CALCIUM 8.7 mg/dL (8.5-10.1); CHLORIDE 108 mmol/L (98-107); CO2 27 mmol/L (21-32); CREATININE 0.6 mg/dL (0.7-1.3); GLUCOSE,RANDOM 100 mg/dL (74-106); PHOSPHOROUS 3.7 mg/dL (2.5-4.9); POTASSIUM 3.3 mmol/L (3.5-5.1); SGOT/AST 16 U/L (15-37); SGPT/ALT 19 U/L (12-78); SODIUM 143 mmol/L (136-145)
[2017-09-01 06:39] LABS: ALK PHOS 57 U/L (45-117); BILIRUBIN,TOTAL 0.7 mg/dL (0.2-1.0)
--- NOTE | 2017-09-01 06:50 | PN ---
Progress Note (short form) - Note Progress Note: Chief Complaint: Events noted, notes reviewed, awake in no distress, atrial fibrillation persists with rapid ventricular response, febrile History of Present Illness: Seen and examined in the ICU. Events noted, notes reviewed, awake in no distress , atrial fibrillation persists with rapid ventricular response, febrile chest x-ray reviewed, congestion probable pneumonia Echocardiography dated 08/01/17 revealed normal LV size and function with trace to mild MR Medications: Current Medications Acetaminophen (Tylenol Oral Solution -) 650 mg GT Q4H PRN PRN Reason: FEVER Last Admin: 09/01/17 06:47 Dose: 650 mg Albuterol Sulfate (Ventolin Hfa Inhaler -) 2 puff IH Q6H PRN PRN Reason: SHORTNESS OF BREATH Apixaban (Eliquis -) 5 mg PO BID [facility] Last Admin: 08/31/17 22:44 Dose: 5 mg Diltiazem HCl (Cardizem -) 60 mg GT TID [facility] Last Admin: 09/01/17 06:25 Dose: 60 mg Levothyroxine Sodium (Synthroid -) 25 mcg GT DAILY@0700 [facility] Last Admin: 09/01/17 06:25 Dose: 25 mcg Metoprolol Tartrate (Lopressor -) 50 mg GT TID [facility] Last Admin: 09/01/17 06:25 Dose: 50 mg Pantoprazole Sodium (Protonix Packets For Oral Suspension -) 40 mg PEG DAILY [facility] Last Admin: 08/31/17 09:39 Dose: 40 mg Senna (Senna Oral Solution -) 8.8 mg GT DAILY [facility] Last Admin: 08/31/17 09:40 Dose: 8.8 mg Review of Systems Unable to obtain Vital Signs: Last Vital Signs Temp Pulse Resp BP Pulse Ox 100 F H 140 H 18 117/90 100 09/01/17 06:00 09/01/17 06:00 09/01/17 06:34 09/01/17 06:00 08/31/17 20:00 Intake & Output 08/29/17 08/30/17 08/31/17 09/01/17 23:59 23:59 23:59 23:59 Intake Total 3000 100 200 Output Total 50 500 250 Balance 2950 -400 -50 Weight 204 lb 203 lb 12.8 oz 204 lb 3.2 oz Neck: Supple Respiratory: Diminished Breath Sounds Bilaterally with Scattered Rhonchi Cardiovascular: S1 S1 Irregularly Irregular Tachycardiac Gastrointestinal: Soft Benign Normal Bowel Sounds Ext: Edema Labs: CBC, BMP 09/01/17 05:55 09/01/17 05:55 Hepatic Panel Total Bilirubin 0.7 mg/dL (0.2-1.0) 09/01/17 05:55 AST 16 U/L (15-37) 09/01/17 05:55 ALT 19 U/L (12-78) 09/01/17 05:55 Alkaline Phosphatase 57 U/L (45-117) 09/01/17 05:55 Albumin 2.3 g/dl (3.4-5.0) L 09/01/17 05:55 INR, PTT INR 1.35 (0.82-1.09) H 08/30/17 12:20 Assessment/Plan ASSESSMENT: 1. Persistent atrial fibrillation with rapid ventricular response [id number] score of 0-1 on DOAC's/Eliquis 2. Chronic respiratory failure ventilator dependent/tracheostomy, acute exacerbation pneumonia and probable 3. Congestive heart failure related to diastolic LV dysfunction 4. Organic brain/history of anoxic brain injury post 5. History of cardiac arrest 6. History of substance abuse 7. Anemia 8. Hypokalemia PLAN: 1. Continue Eliquis with close monitoring of CBC, maintain Hg equal or > 8.0 2. D/C Cardizem 3. Increase Lopressor hemodynamics permitting 4. Add Amiodarone 5. IV diuretics with close monitoring of renal function and electrolytes 6. May consider the addition of ARBS, hemodynamics permitting 7. Antibiotics for possible pneumonia 8. Correction of Hypokalemia Haja Fox MD
[2017-09-01] MEDS: KCL 10 MEQ IVPB 10 MEQ/100 ML INFUS.BAG IVPB SCH ×2 (09:13→11:11)
[2017-09-01] MEDS: SENNOSIDES 8.8 MG/5 ML BULK BOTTLE GT SCH (09:14)
[2017-09-01] MEDS: APIXABAN 5 MG TABLET PO SCH ×2 (09:14→21:20)
[2017-09-01] MEDS: PANTOPRAZOLE SOD 40 MG SUSPENSION PACKET PEG SCH (09:14)
[2017-09-01] MEDS ORDERED: AMIODARONE HCL 200 MG TABLET (FP) GT SCH (10:00)
[2017-09-01] MEDS ORDERED: FUROSEMIDE 40 MG/4 ML INJECTABLE VIAL IVPUSH SCH (10:00)
--- NOTE | 2017-09-01 11:23 | PN ---
Progress Note (short form) - Note Progress Note: ID Consult dictated UTI/ Possible sepsis secondary to UTI Septic shock + BC GPCCL ? significance Rapid Afib Chronic respiratory failure Hx MDR Pseudomonas in sputum Sacral decubitus ulcer Repeat BC x2 Empiric vancomycin/ cefepime + stat dose tobramycin Ventilatory/ hemodynamic support Contact precautions Prognosis guarded Critical care time 40min
--- NOTE | 2017-09-01 11:55 | PN ---
Progress Note (short form) - Note Progress Note: Pt seen/ examined in er . chart reviewed non verbal remains in rapid afib low grade temp +ve cultures Vital Signs Temp 100 F H 09/01/17 06:00 Pulse 129 H 09/01/17 10:00 Resp 18 09/01/17 10:00 BP 96/70 09/01/17 10:00 Pulse Ox 100 09/01/17 10:00 Intake & Output 08/31/17 08/31/17 09/01/17 11:59 23:59 11:59 Intake Total 100 200 Output Total 300 200 250 Balance -300 -100 -50 Weight 203 lb 12.8 oz 204 lb 3.2 oz Intake: Tube Irrigant 100 200 Output: Urine 300 200 250 Supra Pubic Tube 300 200 250 Other: Voiding Method Indwelling Catheter Indwelling Catheter Indwelling Catheter Bowel Movement Yes Yes Yes Weight Measurement Method Built in Bedscale Built in Bedscale Active Medications Acetaminophen (Tylenol Oral Solution -) 650 mg GT Q4H PRN PRN Reason: FEVER Last Admin: 09/01/17 06:47 Dose: 650 mg Albuterol Sulfate (Ventolin Hfa Inhaler -) 2 puff IH Q6H PRN PRN Reason: SHORTNESS OF BREATH Amiodarone HCl (Cordarone -) 200 mg GT BID [facility] Last Admin: 09/01/17 09:14 Dose: 200 mg Apixaban (Eliquis -) 5 mg PO BID [facility] Last Admin: 09/01/17 09:14 Dose: 5 mg Furosemide (Lasix Injection -) 20 mg IVPUSH DAILY [facility] Last Admin: 09/01/17 09:15 Dose: 20 mg Cefepime HCl 2 gm/ Dextrose 100 mls @ 100 mls/hr IVPB Q8H-IV [facility]; Protocol Tobramycin Sulfate 90 mg/ (Sodium Chloride) 102.25 mls @ 100 mls/hr IVPB ONCE ONE; Protocol Stop: 09/01/17 13:31 Vancomycin HCl 1,000 mg/ (Dextrose) 250 mls @ 166.667 mls/hr IVPB BID@0100, 1300 [facility]; Protocol Levothyroxine Sodium (Synthroid -) 25 mcg GT DAILY@0700 [facility] Last Admin: 09/01/17 06:25 Dose: 25 mcg Metoprolol Tartrate (Lopressor -) 50 mg GT Q6HPO [facility] Last Admin: 09/01/17 09:13 Dose: 50 mg Pantoprazole Sodium (Protonix Packets For Oral Suspension -) 40 mg PEG DAILY [facility] Last Admin: 09/01/17 09:14 Dose: 40 mg Senna (Senna Oral Solution -) 8.8 mg GT DAILY [facility] Last Admin: 09/01/17 09:14 Dose: 8.8 mg CBC, BMP 09/01/17 05:55 09/01/17 05:55 Microbiology 08/30/17 16:50 Urine Culture - Preliminary Urine - Urine - Catheterized Non Lactose Fermenting Gnb 08/30/17 12:20 Blood Culture - Preliminary Blood - Peripheral Venous Pending Organism 08/30/17 12:20 Blood Culture - Preliminary Blood - Peripheral Venous NO GROWTH OBTAINED AFTER 24 HOURS, INCUBATION TO CONTINUE FOR 4 DAYS. Physical Exam Gen: awake/ non verbal . s/p trach - vent PULM: scattered rhonchi, diminished CV: S1, S2 Irregular ABD: PEG, supra public catheter . EXT: venous stasis changes, 2+ pitting depend edema, stage IV 2x2 sacral . A/P Sepsis Rapid afib Chronic Respiratory Failure/vent dep Functional Quadriplegia Anemia - Abx - i/d to follow - cardiology on case - meds reviewed - continue present care - sacral decubitus care - overall condition gaurded - will follow Problem List - Problems (1) Atrial fibrillation Code(s): I48.91 - UNSPECIFIED ATRIAL FIBRILLATION Qualifiers: Atrial fibrillation type: unspecified Qualified Code(s): I48.91 - Unspecified atrial fibrillation (2) Anemia Code(s): D64.9 - ANEMIA, UNSPECIFIED (3) Chronic respiratory failure Code(s): J96.10 - CHRONIC RESPIRATORY FAILURE, UNSP W HYPOXIA OR HYPERCAPNIA Qualifiers: Respiratory failure complication: unspecified whether with hypoxia or hypercapnia Qualified Code(s): J96.10 - Chronic respiratory failure, unspecified whether with hypoxia or hypercapnia (4) Quadriplegia, functional Code(s): R53.2 - FUNCTIONAL QUADRIPLEGIA (5) Rapid atrial fibrillation Code(s): I48.91 - UNSPECIFIED ATRIAL FIBRILLATION (6) Tracheostomy tube present Code(s): Z93.0 - TRACHEOSTOMY STATUS (7) UTI (urinary tract infection) Code(s): N39.0 - URINARY TRACT INFECTION, SITE NOT SPECIFIED Qualifiers: Urinary tract infection type: site unspecified Hematuria presence: without hematuria Qualified Code(s): N39.0 - Urinary tract infection, site not specified
[2017-09-01] MEDS ORDERED: VANCOMYCIN 1,000 MG in DEXTROSE 5%-WATER - 250 ML IVPB SCH (12:00)
--- NOTE | 2017-09-01 12:04 | PN ---
Teaching Attending Note Name of Resident: Elizabeth Mcnulty ATTENDING PHYSICIAN STATEMENT I saw and evaluated the patient. I reviewed the resident's note and discussed the case with the resident. I agree with the resident's findings and plan as documented. SUBJECTIVE: Patient seen and examined in the ICU. Vented on AC Mode. Febrile. UTI/Bacteremia. Intake & Output 08/29/17 08/30/17 08/31/17 09/01/17 23:59 23:59 23:59 23:59 Intake Total 3000 100 200 Output Total 50 500 250 Balance 2950 -400 -50 Weight 204 lb 203 lb 12.8 oz 204 lb 3.2 oz Last Vital Signs Temp Pulse Resp BP Pulse Ox 100 F H 129 H 18 96/70 100 09/01/17 06:00 09/01/17 10:00 09/01/17 10:00 09/01/17 10:00 09/01/17 10:00 Active Medications Acetaminophen (Tylenol Oral Solution -) 650 mg GT Q4H PRN PRN Reason: FEVER Last Admin: 09/01/17 06:47 Dose: 650 mg Albuterol Sulfate (Ventolin Hfa Inhaler -) 2 puff IH Q6H PRN PRN Reason: SHORTNESS OF BREATH Amiodarone HCl (Cordarone -) 200 mg GT BID [facility] Last Admin: 09/01/17 09:14 Dose: 200 mg Apixaban (Eliquis -) 5 mg PO BID [facility] Last Admin: 09/01/17 09:14 Dose: 5 mg Furosemide (Lasix Injection -) 20 mg IVPUSH DAILY [facility] Last Admin: 09/01/17 09:15 Dose: 20 mg Cefepime HCl 2 gm/ Dextrose 100 mls @ 100 mls/hr IVPB Q8H-IV [facility]; Protocol Tobramycin Sulfate 90 mg/ (Sodium Chloride) 102.25 mls @ 100 mls/hr IVPB ONCE ONE; Protocol Stop: 09/01/17 13:31 Vancomycin HCl 1,000 mg/ (Dextrose) 250 mls @ 166.667 mls/hr IVPB BID@0100, 1300 [facility]; Protocol Levothyroxine Sodium (Synthroid -) 25 mcg GT DAILY@0700 [facility] Last Admin: 09/01/17 06:25 Dose: 25 mcg Metoprolol Tartrate (Lopressor -) 50 mg GT Q6HPO [facility] Last Admin: 09/01/17 09:13 Dose: 50 mg Pantoprazole Sodium (Protonix Packets For Oral Suspension -) 40 mg PEG DAILY [facility] Last Admin: 09/01/17 09:14 Dose: 40 mg Senna (Senna Oral Solution -) 8.8 mg GT DAILY [facility] Last Admin: 09/01/17 09:14 Dose: 8.8 mg Gen: poorly responsive, trached/vented, chronically ill appearing HENT: trach CDI PULM: scattered rhonchi, diminished bases L>R CV: irregular ABD: PEG, supra public catheter EXT: venous stasis changes, 2+ pitting depend edema, DTI on R heel, stage IV 2x2 sacral without exudate some surrounding eschar Laboratory Results - last 24 hr 09/01/17 09/01/17 05:55 05:55 WBC 7.2 RBC 2.81 L Hgb 9.4 L Hct 27.9 L MCV 99.2 H MCH 33.5 MCHC 33.8 RDW 14.8 Plt Count 148 MPV 10.4 Sodium 143 Potassium 3.3 L Chloride 108 H Carbon Dioxide 27 Anion Gap 8 BUN 19 H Creatinine 0.6 L Creat Clearance w eGFR > 60 Random Glucose 100 Calcium 8.7 Phosphorus 3.7 Magnesium 2.0 Total Bilirubin 0.7 AST 16 ALT 19 Alkaline Phosphatase 57 Total Protein 6.0 L Albumin 2.3 L IMP: Atrial Fibrillation with RVR R/O UTI Chronic Respiratory Failure/vent dep DM Functional Quadriplegia - Rate control per Cardiology - ABX per ID - AC - Not appropriate for vent weaning - Enteral feeds - Vent floor Dr Sweeney Critical care time spent in reviewing chart, evaluating patient and formulating plan - 36 minutes.
[2017-09-01] MEDS: VANCOMYCIN 1,000 MG in DEXTROSE 5%-WATER - 250 ML IVPB SCH (12:10)
[2017-09-01] MEDS: CEFEPIME 2 GM in DEXTROSE 5%-WATER 100 ML IVPB SCH ×2 (12:10→17:18)
[2017-09-01] MEDS ORDERED: TOBRAMYCIN SULFATE 90 MG in SODIUM CHLORIDE 100 ML IVPB ONE (12:30)
--- NOTE | 2017-09-01 14:51 | PN ---
Progress Note (short form) - Note Progress Note: S: -- HR slightly improved. Rate control meds changed -- Vented. Nonverbal O: Vital Signs Period Temp Pulse Resp BP Sys/Bhardwaj Pulse Ox Last 24 Hr 98.1 F-99.3 F 88-166 12-153 88-124/64-103 98-100 GEN: Nonverbal, on vent, lying comfortably HEENT: Trach, vent, PERRL, EOMi CV: S1, S2, RRR, tachycardic rate, reg rhythm LUNG: CTAB ABD: Soft, NT, ND, MSK: No edema, no erythema, lobulated penis NEURO: Nonverbal, moves grossly symmetrically A/P: 61yo M with PMHx of Afib, functional quadriplegia, chronic trach, vent dependent , recent IR replacement of suprapubic catheter who was sent to ER for Afib w/ RVR. # Afib w/ RVR -- Afib diagnosed on last admission this month. Could be irritation from tube dislodgement. Was on Cardizem drip, now converted to GT Amnio and Lopressor. CXR has some congestion, could be from RVR. Cardio staretd on lasix. However, will need to watch BP carefully since now on AVN blockers and lasix. If BP cannot tolerate, can hold off on rate controlling meds, in worst case can give fluid bolus. On Eliquis 5 BID. # Bacteremia 2/2 ?PNA -- Growing G+ organism, could be from pneumonia. Lung crackles. Treating with broad spectrm abx. # UTI -- Chronic suprapubic cathether. Growing LFGNB. On abx as per ID # FEN/PPx -- No IVF amparo, tube feeds, Eliquis # Dispo -- Transfer to tele vent floor Elizabeth Mcnulty MD - PGY1 Resident ICU
--- NOTE | 2017-09-01 15:49 | CONS ---
DATE OF CONSULTATION: DATE OF DICTATION: 09/01/2017 The patient is a 62-year-old male with multiple comorbidities, history of chronic respiratory failure on mechanical ventilation, anorexic encephalopathy, chronic left pleural effusion, evaluated for sepsis. History was obtained from the chart as he cannot give a history of secondary to his mental status. The patient was recently hospitalized at [facility] from July 31 through August 11. His hospital course at that time was complicated by fever of unknown origin. He was empirically treated with IV antibiotic therapy, ultimately discharged back to the residential. During that admission, a multidrug resistant pseudomonas was isolated from the sputum. This was felt to be a colonizer or contaminant. He now returns with sepsis, septic shock at the residential. There was a malfunction of his suprapubic cystostomy. He was taken to the interventional radiology department where a manipulation was performed. His post-procedure course was complicated by rapid atrial fibrillation and hypotension. He was seen in the emergency room where he required 4 L of intravenous fluids. Cultures were obtained, and he was empirically treated with vancomycin and Zosyn. Blood cultures are now positive for gram-positive cocci 1 bottle. He suffers from anoxic encephalopathy and cannot offer any additional details. PAST MEDICAL HISTORY: Positive for anoxic encephalopathy, chronic respiratory failure on mechanical ventilation, atrial fibrillation, COPD, hypertension, hypothyroidism, seizure disorder, chronic anemia, gastroesophageal reflux, cholelithiasis, hepatitis C, sacral decubitus ulcer. Past medical history also includes a large fungating genital wart. PAST SURGICAL HISTORY: Status post tracheostomy and feeding gastrostomy, suprapubic cystostomy. ALLERGIES: No known allergies. MEDICATIONS: Include Tylenol, amiodarone, Eliquis, Ventolin, Lopressor, Lasix, Protonix, Synthroid. SOCIAL HISTORY: He is a residential resident, dependent in activities of daily living. History of anoxic encephalopathy. REVIEW OF SYSTEMS: Cardiac: As per HPI. Respiratory: Chronic respiratory failure on mechanical ventilation. Gastrointestinal: Status post feeding gastrostomy. Genitourinary: As per HPI. LABORATORY DATA: White count 7.2, hematocrit 27.9, platelet count 148, BUN 19, creatinine 0.6. Chest x-ray shows increased markings at the left base. Urinalysis: White cells 100, 734 red cells. Liver enzymes normal. PHYSICAL EXAMINATION: General: The patient is not responsive. Vital Signs: Temperature 100, blood pressure 96/70, pulse 129, regular. Respirations 18 per minute. HEENT: Sclerae are anicteric. Patient is status post tracheostomy. Cardiovascular: Heart sounds tachycardic, S1, S2. Lungs: Air entry bilaterally. Abdomen: Soft. No tenderness elicited. Genitourinary: A urinary catheter is in place with cloudy urine in collection bag. Skin: Stage III pressure ulcer to sacrum. Extremities: Positive for edema, chronic venous stasis dermatitis. There is a large fungating mass present in the genital area which does not appear to be secondarily infected. IMPRESSION: 1. Urinary tract infection/possible sepsis secondary to urinary tract infection. 2. Positive blood culture of uncertain significance. 3. Chronic respiratory failure. 4. Rapid atrial fibrillation. 5. History of multidrug-resistant pseudomonas in sputum culture. 6. Functional quadriplegia. 7. Sacral decubitus ulcer. Pending sepsis workup, empiric antibiotic coverage with cefepime, vancomycin, and tobramycin. Will repeat blood cultures, start vancomycin 1 g IV piggyback every 12 hours, cefepime 2 g IV piggyback every 8 hours, tobramycin 90 mg stat dose for coverage of possible multidrug-resistant pseudomonas. Continue hemodynamic and ventilatory support, contact precautions. PROGNOSIS: Guarded. CRITICAL TIME SPENT: 40 minutes. ARELI HERNANDEZ M.D. [id number]
[2017-09-01] MEDS ORDERED: PT OWN MED DRAWER 7, Y5N ONE ×2 (17:17→20:53)
[2017-09-01] MEDS ORDERED: ALBUTEROL SO4 18 GM HFA INHALER IH PRN (19:07)
[2017-09-01] MEDS: AMIODARONE HCL 200 MG TABLET (FP) GT SCH (21:20)
[2017-09-02] MEDS ORDERED: PT OWN MED DRAWER 7, Y5N ONE ×5 (00:42→21:16)
[2017-09-02] MEDS: METOPROLOL TARTRATE 50 MG TABLET (FP) GT SCH ×4 (00:44→18:14)
[2017-09-02] MEDS: VANCOMYCIN 1,000 MG in DEXTROSE 5%-WATER - 250 ML IVPB SCH (00:44)
[2017-09-02] MEDS: CEFEPIME 2 GM in DEXTROSE 5%-WATER - 100 ML IVPB SCH ×3 (01:01→18:14)
[2017-09-02] MEDS: LEVOTHYROXINE NA 25 MCG TABLET (FP) GT SCH (06:27)
[2017-09-02 06:45] LABS: HEMATOCRIT 30.9 % (35.4-49); HEMOGLOBIN 10.4 GM/dL (11.7-16.9); MCH 33.4 pg (25.7-33.7); MCHC 33.7 g/dl (32.0-35.9); MEAN CELL VOLUME 99.1 fl (80-96); MEAN PLT VOLUME 10.2 fl (7.5-11.1); PLATELET COUNT 160 K/MM3 (134-434); RBC 3.12 M/mm3 (4.00-5.60); RDW 14.6 % (11.9-15.9); WHITE BLOOD COUNT 6.5 K/mm3 (4.0-10.0)
[2017-09-02 07:17] LABS: ALBUMIN 2.4 g/dl (3.4-5.0); ANION GAP 9 (8-16); BLOOD UREA NITROGEN 14 mg/dL (7-18); CALCIUM 8.7 mg/dL (8.5-10.1); CHLORIDE 108 mmol/L (98-107); CO2 27 mmol/L (21-32); GLUCOSE,RANDOM 123 mg/dL (74-106); POTASSIUM 3.1 mmol/L (3.5-5.1); SODIUM 144 mmol/L (136-145)
[2017-09-02 07:21] LABS: ALK PHOS 59 U/L (45-117); BILIRUBIN,TOTAL 0.5 mg/dL (0.2-1.0); CREATININE 0.7 mg/dL (0.7-1.3); PHOSPHOROUS 3.8 mg/dL (2.5-4.9); SGOT/AST 17 U/L (15-37); SGPT/ALT 21 U/L (12-78); TOT PROT 6.2 g/dl (6.4-8.2)
--- NOTE | 2017-09-02 07:58 | PN ---
Progress Note (short form) - Note Progress Note: chart reviewed no pressors remains unresponsive trach to vent Vital Signs Period Temp Pulse Resp BP Sys/Bhardwaj Pulse Ox Last 24 Hr 98.5 F-100.1 F 115-155 13-21 74-104/58-83 97-100 cor-rrr lungs decreased bs at bses ab soft,nt +spt ext venous stasisi changes CBC, BMP 09/02/17 05:52 09/02/17 05:52 Microbiology 08/30/17 12:20 Blood - Peripheral Venous Blood Culture - Preliminary Staphylococcus Coagulase Neg 08/30/17 12:20 Blood - Peripheral Venous Blood Culture - Preliminary NO GROWTH OBTAINED AFTER 48 HOURS, INCUBATION TO CONTINUE FOR 3 DAYS. 08/31/17 00:01 Sputum - Endotrachea Suction/Ventilator Sputum Culture - Preliminary Non Lactose Fermenting Gnb Diphtheroid/Corynebacterium 08/30/17 16:50 Urine - Urine - Catheterized Urine Culture - Preliminary Non Lactose Fermenting Gnb Active Medications Acetaminophen (Tylenol Oral Solution -) 650 mg GT Q4H PRN PRN Reason: FEVER Albuterol Sulfate (Ventolin Hfa Inhaler -) 2 puff IH Q6H PRN PRN Reason: SHORTNESS OF BREATH Amiodarone HCl (Cordarone -) 200 mg GT BID [facility] Last Admin: 09/01/17 21:20 Dose: 200 mg Apixaban (Eliquis -) 5 mg PO BID [facility] Last Admin: 09/01/17 21:20 Dose: 5 mg Furosemide (Lasix Injection -) 20 mg IVPUSH DAILY [facility] Vancomycin HCl 1,000 mg/ (Dextrose) 250 mls @ 166.667 mls/hr IVPB BID@0100, 1300 [facility]; Protocol Last Admin: 09/02/17 00:44 Dose: 166.667 mls/hr Cefepime HCl 2 gm/ Dextrose 100 mls @ 200 mls/hr IVPB Q8H-IV [facility]; Protocol Last Admin: 09/02/17 01:01 Dose: 200 mls/hr Levothyroxine Sodium (Synthroid -) 25 mcg GT DAILY@0700 [facility] Last Admin: 09/02/17 06:27 Dose: 25 mcg Metoprolol Tartrate (Lopressor -) 50 mg GT Q6HPO [facility] Last Admin: 09/02/17 06:27 Dose: 50 mg Pantoprazole Sodium (Protonix Packets For Oral Suspension -) 40 mg PEG DAILY [facility] Senna (Senna Oral Solution -) 8.8 mg GT DAILY [facility] cxray- increased haziness left lung a/p sepsis UTI +blood culture- suspect contaminant- one of four bottles hx MDRO chronic resp failure functional quadraplegia continue cefepime redose tobramycin most likely due to SPT manipulation d/c vancomycin over 35 minutes spent in the care of this ICU patient
--- NOTE | 2017-09-02 08:24 | PN ---
Progress Note (short form) - Note Progress Note: Chief Complaint: Events noted, notes reviewed, awake in no distress, atrial fibrillation persists with rapid ventricular response, low grade fever History of Present Illness: Seen and examined in the ICU. Events noted, notes reviewed, awake in no distress , atrial fibrillation persists with rapid ventricular response, low grade fever Echocardiography dated 08/01/17 revealed normal LV size and function with trace to mild MR Medications: Current Medications Acetaminophen (Tylenol Oral Solution -) 650 mg GT Q4H PRN PRN Reason: FEVER Albuterol Sulfate (Ventolin Hfa Inhaler -) 2 puff IH Q6H PRN PRN Reason: SHORTNESS OF BREATH Amiodarone HCl (Cordarone -) 200 mg GT BID [facility] Last Admin: 09/01/17 21:20 Dose: 200 mg Apixaban (Eliquis -) 5 mg PO BID [facility] Last Admin: 09/01/17 21:20 Dose: 5 mg Furosemide (Lasix Injection -) 20 mg IVPUSH DAILY [facility] Cefepime HCl 2 gm/ Dextrose 100 mls @ 200 mls/hr IVPB Q8H-IV [facility]; Protocol Last Admin: 09/02/17 01:01 Dose: 200 mls/hr Tobramycin Sulfate 180 mg/ (Sodium Chloride) 104.5 mls @ 100 mls/hr IVPB ONCE ONE; Protocol Stop: 09/02/17 13:02 Levothyroxine Sodium (Synthroid -) 25 mcg GT DAILY@0700 [facility] Last Admin: 09/02/17 06:27 Dose: 25 mcg Metoprolol Tartrate (Lopressor -) 50 mg GT Q6HPO [facility] Last Admin: 09/02/17 06:27 Dose: 50 mg Pantoprazole Sodium (Protonix Packets For Oral Suspension -) 40 mg PEG DAILY [facility] Senna (Senna Oral Solution -) 8.8 mg GT DAILY [facility] Review of Systems Unable to obtain Vital Signs: Last Vital Signs Temp Pulse Resp BP Pulse Ox 98.5 F 128 H 15 84/69 100 09/02/17 02:00 09/02/17 07:51 09/02/17 07:59 09/02/17 07:51 09/02/17 07:59 Intake & Output 08/30/17 08/31/17 09/01/17 09/02/17 23:59 23:59 23:59 23:59 Intake Total 3000 100 1270 890 Output Total 50 500 1495 100 Balance 2950 -400 -225 790 Weight 204 lb 203 lb 12.8 oz 204 lb 200 lb 11.2 oz Neck: Supple Respiratory: Diminished Breath Sounds Bilaterally with Scattered Rhonchi Cardiovascular: S1 S1 Irregularly Irregular Tachycardiac Gastrointestinal: Soft Benign Normal Bowel Sounds Ext: Edema Labs: CBC, BMP 09/02/17 05:52 09/02/17 05:52 Hepatic Panel Total Bilirubin 0.5 mg/dL (0.2-1.0) D 09/02/17 05:52 AST 17 U/L (15-37) 09/02/17 05:52 ALT 21 U/L (12-78) 09/02/17 05:52 Alkaline Phosphatase 59 U/L (45-117) 09/02/17 05:52 Albumin 2.4 g/dl (3.4-5.0) L 09/02/17 05:52 INR, PTT INR 1.35 (0.82-1.09) H 08/30/17 12:20 Assessment/Plan ASSESSMENT: 1. Persistent atrial fibrillation with rapid ventricular response [id number] score of 0-1 on DOAC's/Eliquis 2. Chronic respiratory failure ventilator dependent/tracheostomy, acute exacerbation pneumonia and probable 3. Congestive heart failure related to diastolic LV dysfunction 4. Anoxic encephalopathy/history of anoxic brain injury post 5. History of cardiac arrest 6. History of substance abuse 7. Anemia 8. Hypokalemia, persistent PLAN: 1. Continue Eliquis with close monitoring of CBC, maintain Hg equal or > 8.0 2. Continue Lopressor, hemodynamics permitting 3. Continue Amiodarone 4. Add Digoxin with caution 5. IV diuretics with close monitoring of renal function and electrolytes 6. May consider the addition of ARBS, hemodynamics permitting 7. Antibiotics as per the primary team 8. Correction of Hypokalemia Haja Fox MD
[2017-09-02] MEDS ORDERED: DIGOXIN 0.5 MG/2 ML AMPUL IVPUSH ONE (08:25)
--- NOTE | 2017-09-02 09:02 | PN ---
Progress Note (short form) - Note Progress Note: Pulm/CCM SUBJECTIVE: Patient seen and examined in the ICU. -fever curve down -narrowing abx -in persistent Afib RVR, Cards adding Digoxin (on BB and amio) Vital Signs Temp 98.5 F 09/02/17 02:00 Pulse 141 H 09/02/17 08:00 Resp 14 09/02/17 08:00 BP 84/69 09/02/17 07:51 Pulse Ox 100 09/02/17 08:00 Intake & Output 09/01/17 09/01/17 09/02/17 11:59 23:59 11:59 Intake Total 200 1070 890 Output Total 250 1245 100 Balance -50 -175 790 Weight 92.624 kg 92.533 kg 91.036 kg Intake: IVPB 750 350 Tube Feeding 20 240 Tube Irrigant 200 300 300 Output: Urine 250 1245 100 Supra Pubic Tube 250 1245 100 Other: Voiding Method Indwelling Catheter Indwelling Catheter Indwelling Catheter Bowel Movement Yes No No Height 5 ft 10 in Body Mass Index (BMI) 29.2 Weight Measurement Method [facility] Active Medications Acetaminophen (Tylenol Oral Solution -) 650 mg GT Q4H PRN PRN Reason: FEVER Albuterol Sulfate (Ventolin Hfa Inhaler -) 2 puff IH Q6H PRN PRN Reason: SHORTNESS OF BREATH Amiodarone HCl (Cordarone -) 200 mg GT BID [facility] Last Admin: 09/01/17 21:20 Dose: 200 mg Apixaban (Eliquis -) 5 mg PO BID [facility] Last Admin: 09/01/17 21:20 Dose: 5 mg Digoxin (Lanoxin Injection -) 0.25 mg IVPUSH 0830,1430 [facility] Stop: 09/03/17 08:31 Furosemide (Lasix Injection -) 20 mg IVPUSH DAILY [facility] Cefepime HCl 2 gm/ Dextrose 100 mls @ 200 mls/hr IVPB Q8H-IV [facility]; Protocol Last Admin: 09/02/17 01:01 Dose: 200 mls/hr Tobramycin Sulfate 180 mg/ (Sodium Chloride) 104.5 mls @ 100 mls/hr IVPB ONCE ONE; Protocol Stop: 09/02/17 13:02 Potassium Chloride (Potassium Chloride 10 Meq Premix Ivpb -) 10 meq in 100 mls @ 100 mls/hr IVPB Q60M [facility] Stop: 09/02/17 11:14 Levothyroxine Sodium (Synthroid -) 25 mcg GT DAILY@0700 [facility] Last Admin: 09/02/17 06:27 Dose: 25 mcg Metoprolol Tartrate (Lopressor -) 50 mg GT Q6HPO [facility] Pantoprazole Sodium (Protonix Packets For Oral Suspension -) 40 mg PEG DAILY [facility] Senna (Senna Oral Solution -) 8.8 mg GT DAILY [facility] Gen: poorly responsive, trached/vented, chronically ill appearing HENT: trach CDI PULM: scattered rhonchi, diminished bases L>R CV: irregular ABD: PEG, supra public catheter EXT: venous stasis changes, 2+ pitting depend edema, DTI on R heel, stage IV 2x2 sacral without exudate some surrounding eschar CBCD WBC 6.5 K/mm3 (4.0-10.0) 09/02/17 05:52 RBC 3.12 M/mm3 (4.00-5.60) L 09/02/17 05:52 Hgb 10.4 GM/dL (11.7-16.9) L D 09/02/17 05:52 Hct 30.9 % (35.4-49) L 09/02/17 05:52 MCV 99.1 fl (80-96) H 09/02/17 05:52 MCHC 33.7 g/dl (32.0-35.9) 09/02/17 05:52 RDW 14.6 % (11.9-15.9) 09/02/17 05:52 Plt Count 160 K/MM3 (134-434) 09/02/17 05:52 MPV 10.2 fl (7.5-11.1) 09/02/17 05:52 CMP Sodium 144 mmol/L (136-145) 09/02/17 05:52 Potassium 3.1 mmol/L (3.5-5.1) L 09/02/17 05:52 Chloride 108 mmol/L (98-107) H 09/02/17 05:52 Carbon Dioxide 27 mmol/L (21-32) 09/02/17 05:52 Anion Gap 9 (8-16) 09/02/17 05:52 BUN 14 mg/dL (7-18) D 09/02/17 05:52 Creatinine 0.7 mg/dL (0.7-1.3) 09/02/17 05:52 Creat Clearance w eGFR > 60 (>60) 09/02/17 05:52 Random Glucose 123 mg/dL (74-106) H D 09/02/17 05:52 Calcium 8.7 mg/dL (8.5-10.1) 09/02/17 05:52 Total Bilirubin 0.5 mg/dL (0.2-1.0) D 09/02/17 05:52 AST 17 U/L (15-37) 09/02/17 05:52 ALT 21 U/L (12-78) 09/02/17 05:52 Alkaline Phosphatase 59 U/L (45-117) 09/02/17 05:52 Total Protein 6.2 g/dl (6.4-8.2) L 09/02/17 05:52 Albumin 2.4 g/dl (3.4-5.0) L 09/02/17 05:52 CARDIAC ENZYMES Troponin I < 0.02 ng/ml (0.00-0.05) D 08/30/17 12:20 IMP: Atrial Fibrillation with RVR R/O UTI Chronic Respiratory Failure/vent dep DM Functional Quadriplegia - Rate control per Cardiology (adding Dig load today) - ABX per ID, stopping vanco, Tobra being redosed - AC - Not appropriate for vent weaning - Enteral feeds - Vent floor once HR under better control Tana OSORIO [id number]
[2017-09-02] MEDS: KCL 10 MEQ IVPB 10 MEQ/100 ML INFUS.BAG IVPB SCH ×2 (09:34→13:00)
[2017-09-02] MEDS: APIXABAN 5 MG TABLET PO SCH ×2 (09:35→21:28)
[2017-09-02] MEDS: AMIODARONE HCL 200 MG TABLET (FP) GT SCH ×2 (09:35→21:28)
[2017-09-02] MEDS: FUROSEMIDE 40 MG/4 ML INJECTABLE VIAL IVPUSH SCH (09:36)
[2017-09-02] MEDS: PANTOPRAZOLE SOD 40 MG SUSPENSION PACKET PEG SCH (09:36)
[2017-09-02] MEDS: SENNOSIDES 8.8 MG/5 ML BULK BOTTLE GT SCH (10:00)
[2017-09-02] MEDS ORDERED: SODIUM CHLORIDE IVPB ONE (12:00)
[2017-09-02] MEDS ORDERED: TOBRAMYCIN SULFATE IVPB ONE (12:00)
--- NOTE | 2017-09-02 12:10 | PN ---
Progress Note (short form) - Note Progress Note: pt seen/ examined all f/u noted / appreciated overall condition same still rapid afib- dig added Echo- moderate - severe lv dysfn Vital Signs Temp 98.5 F 09/02/17 02:00 Pulse 148 H 09/02/17 09:30 Resp 19 09/02/17 11:06 BP 84/69 09/02/17 07:51 Pulse Ox 100 09/02/17 08:00 Intake & Output 09/01/17 09/02/17 09/02/17 23:59 11:59 23:59 Intake Total 1070 890 Output Total 1245 100 Balance -175 790 Weight 204 lb 200 lb 11.2 oz Intake: IVPB 750 350 Tube Feeding 20 240 Tube Irrigant 300 300 Output: Urine 1245 100 Supra Pubic Tube 1245 100 Other: Voiding Method Indwelling Catheter Indwelling Catheter Bowel Movement No No Height 5 ft 10 in Body Mass Index (BMI) 29.2 Weight Measurement [facility] Medications Acetaminophen (Tylenol Oral Solution -) 650 mg GT Q4H PRN PRN Reason: FEVER Albuterol Sulfate (Ventolin Hfa Inhaler -) 2 puff IH Q6H PRN PRN Reason: SHORTNESS OF BREATH Amiodarone HCl (Cordarone -) 200 mg GT BID [facility] Last Admin: 09/02/17 09:35 Dose: 200 mg Apixaban (Eliquis -) 5 mg PO BID [facility] Last Admin: 09/02/17 09:35 Dose: 5 mg Digoxin (Lanoxin Injection -) 0.25 mg IVPUSH 0830,1430 [facility] Stop: 09/03/17 08:31 Furosemide (Lasix Injection -) 20 mg IVPUSH DAILY [facility] Last Admin: 09/02/17 09:36 Dose: 20 mg Cefepime HCl 2 gm/ Dextrose 100 mls @ 200 mls/hr IVPB Q8H-IV [facility]; Protocol Last Admin: 09/02/17 09:35 Dose: 200 mls/hr Tobramycin Sulfate 180 mg/ (Sodium Chloride) 104.5 mls @ 100 mls/hr IVPB ONCE ONE; Protocol Stop: 09/02/17 13:02 Last Admin: 09/02/17 12:06 Dose: 100 mls/hr Levothyroxine Sodium (Synthroid -) 25 mcg GT DAILY@0700 [facility] Last Admin: 09/02/17 06:27 Dose: 25 mcg Metoprolol Tartrate (Lopressor -) 50 mg GT Q6HPO [facility] Last Admin: 09/02/17 11:41 Dose: 50 mg Pantoprazole Sodium (Protonix Packets For Oral Suspension -) 40 mg PEG DAILY [facility] Last Admin: 09/02/17 09:36 Dose: 40 mg Senna (Senna Oral Solution -) 8.8 mg GT DAILY [facility] Last Admin: 09/02/17 10:00 Dose: 8.8 mg CBC, BMP 09/02/17 05:52 09/02/17 05:52 Microbiology 09/01/17 11:50 Blood Culture - Preliminary Blood - Peripheral Venous NO GROWTH OBTAINED AFTER 24 HOURS, INCUBATION TO CONTINUE FOR 4 DAYS. 09/01/17 11:20 Blood Culture - Preliminary Blood - Peripheral Venous NO GROWTH OBTAINED AFTER 24 HOURS, INCUBATION TO CONTINUE FOR 4 DAYS. 08/30/17 16:50 Urine Culture - Final Urine - Urine - Catheterized Proteus Mirabilis 08/31/17 00:01 Gram Stain - Final Sputum - Endotrachea Suction/Ventilator Sputum Culture - Preliminary Non Lactose Fermenting Gnb Diphtheroid/Corynebacterium 08/30/17 12:20 Blood Culture - Preliminary Blood - Peripheral Venous Staphylococcus Coagulase Neg 08/30/17 12:20 Blood Culture - Preliminary Blood - Peripheral Venous NO GROWTH OBTAINED AFTER 48 HOURS, INCUBATION TO CONTINUE FOR 3 DAYS. cxr - worsened Echo-- Moderate to severe Lv dysfunction. Physical Exam Gen: awake/ non verbal . s/p trach - vent PULM: scattered rhonchi, diminished CV: S1, S2 Irregular ABD: PEG, supra public catheter . EXT: venous stasis changes, 2+ pitting depend edema, stage IV 2x2 sacral . A/P Sepsis Rapid afib Chronic Respiratory Failure/vent dep Functional Quadriplegia Anemia -cardiomyopathy - uti - Abx - i/d on case - cardiology on case - meds reviewed - continue present care - sacral decubitus care - overall condition gaurded - will follow
[2017-09-02] MEDS: DIGOXIN 0.5 MG/2 ML AMPUL IVPUSH SCH (14:35)
[2017-09-03] MEDS: METOPROLOL TARTRATE 50 MG TABLET (FP) GT SCH ×4 (00:22→17:54)
[2017-09-03] MEDS: CEFEPIME 2 GM in DEXTROSE 5%-WATER - 100 ML IVPB SCH (01:51)
[2017-09-03] MEDS: LEVOTHYROXINE NA 25 MCG TABLET (FP) GT SCH (06:41)
--- NOTE | 2017-09-03 07:43 | PN ---
Progress Note (short form) - Note Progress Note: Chief Complaint: Events noted, notes reviewed, awake in no distress, atrial fibrillation persists rates improved History of Present Illness: Seen and examined in the ICU. Events noted, notes reviewed, awake in no distress , atrial fibrillation persists rates improved Chest x-ray from yesterday noted Echocardiography dated 08/01/17 revealed normal LV size and function with trace to mild MR Medications: Current Medications Acetaminophen (Tylenol Oral Solution -) 650 mg GT Q4H PRN PRN Reason: FEVER Albuterol Sulfate (Ventolin Hfa Inhaler -) 2 puff IH Q6H PRN PRN Reason: SHORTNESS OF BREATH Amiodarone HCl (Cordarone -) 200 mg GT BID [facility] Last Admin: 09/02/17 21:28 Dose: 200 mg Apixaban (Eliquis -) 5 mg PO BID [facility] Last Admin: 09/02/17 21:28 Dose: 5 mg Digoxin (Lanoxin Injection -) 0.25 mg IVPUSH 0830,1430 [facility] Stop: 09/03/17 08:31 Last Admin: 09/02/17 14:35 Dose: 0.25 mg Furosemide (Lasix Injection -) 20 mg IVPUSH DAILY [facility] Last Admin: 09/02/17 09:36 Dose: 20 mg Cefepime HCl 2 gm/ Dextrose 100 mls @ 200 mls/hr IVPB Q8H-IV [facility]; Protocol Last Admin: 09/03/17 01:51 Dose: 200 mls/hr Levothyroxine Sodium (Synthroid -) 25 mcg GT DAILY@0700 [facility] Last Admin: 09/03/17 06:41 Dose: 25 mcg Metoprolol Tartrate (Lopressor -) 50 mg GT Q6HPO [facility] Last Admin: 09/03/17 06:42 Dose: 50 mg Pantoprazole Sodium (Protonix Packets For Oral Suspension -) 40 mg PEG DAILY [facility] Last Admin: 09/02/17 09:36 Dose: 40 mg Senna (Senna Oral Solution -) 8.8 mg GT DAILY [facility] Last Admin: 09/02/17 10:00 Dose: 8.8 mg Review of Systems Unable to obtain Vital Signs: Last Vital Signs Temp Pulse Resp BP Pulse Ox 99.5 F 95 H 16 80/60 96 09/03/17 02:00 09/03/17 02:00 09/03/17 06:09 09/03/17 02:00 09/02/17 20:30 Intake & Output 08/31/17 09/01/17 09/02/17 09/03/17 23:59 23:59 23:59 23:59 Intake Total 100 1270 2270 700 Output Total 500 1495 1700 600 Balance -400 -225 570 100 Weight 203 lb 12.8 oz 204 lb 200 lb 11.2 oz Neck: Supple Negative JVD Respiratory: Diminished Breath Sounds Bilaterally with Scattered Rhonchi Cardiovascular: S1 S1 Irregularly Irregular Gastrointestinal: Soft Benign Normal Bowel Sounds Ext: Edema Labs: CBC, BMP 09/02/17 05:52 09/02/17 05:52 Hepatic Panel Total Bilirubin 0.5 mg/dL (0.2-1.0) D 09/02/17 05:52 AST 17 U/L (15-37) 09/02/17 05:52 ALT 21 U/L (12-78) 09/02/17 05:52 Alkaline Phosphatase 59 U/L (45-117) 09/02/17 05:52 Albumin 2.4 g/dl (3.4-5.0) L 09/02/17 05:52 INR, PTT INR 1.35 (0.82-1.09) H 08/30/17 12:20 Assessment/Plan ASSESSMENT: 1. Persistent atrial fibrillation with periods of rapid ventricular response [id number] score of 0-1 on DOAC's/Eliquis, improved heart rate control 2. Chronic respiratory failure ventilator dependent/tracheostomy, acute exacerbation pneumonia and probable 3. Congestive heart failure related to diastolic LV dysfunction, resolving 4. Anoxic encephalopathy/history of anoxic brain injury post 5. History of cardiac arrest 6. History of substance abuse 7. Anemia 8. Hypokalemia, persistent PLAN: 1. Continue Eliquis with close monitoring of CBC, maintain Hg equal or > 8.0 2. Continue Lopressor, hemodynamics permitting 3. Continue Amiodarone at 200 mg twice daily for total of 1 week and then 200 mg daily 4. Continue Digoxin with caution and close monitoring of level 5. IV diuretics with close monitoring of renal function and electrolytes 6. May consider the addition of ARBS, hemodynamics permitting 7. Antibiotics as per the primary team 8. Correction of Hypokalemia Haja Fox MD
[2017-09-03] MEDS: DIGOXIN 0.5 MG/2 ML AMPUL IVPUSH SCH (08:43)
--- NOTE | 2017-09-03 08:59 | PN ---
Progress Note (short form) - Note Progress Note: trach to vent no pressors Vital Signs Period Temp Pulse Resp BP Sys/Bhardwaj Pulse Ox Last 24 Hr 99.1 F-99.6 F 86-148 12-20 80-115/59-73 96-97 cor-rrr lungs clear abd soft,nt ext venous stasis CBC, BMP 09/02/17 05:52 09/02/17 05:52 Microbiology 08/30/17 12:20 Blood - Peripheral Venous Blood Culture - Preliminary NO GROWTH OBTAINED AFTER 72 HOURS, INCUBATION TO CONTINUE FOR 2 DAYS. 09/01/17 11:50 Blood - Peripheral Venous Blood Culture - Preliminary NO GROWTH OBTAINED AFTER 24 HOURS, INCUBATION TO CONTINUE FOR 4 DAYS. 09/01/17 11:20 Blood - Peripheral Venous Blood Culture - Preliminary NO GROWTH OBTAINED AFTER 24 HOURS, INCUBATION TO CONTINUE FOR 4 DAYS. 08/30/17 16:50 Urine - Urine - Catheterized Urine Culture - Final Proteus Mirabilis 08/31/17 00:01 Sputum - Endotrachea Suction/Ventilator Gram Stain - Final 08/31/17 00:01 Sputum - Endotrachea Suction/Ventilator Sputum Culture - Preliminary Non Lactose Fermenting Gnb Diphtheroid/Corynebacterium 08/30/17 12:20 Blood - Peripheral Venous Blood Culture - Preliminary Staphylococcus Coagulase Neg Current Medications Acetaminophen (Tylenol Oral Solution -) 650 mg GT Q4H PRN PRN Reason: FEVER Albuterol Sulfate (Ventolin Hfa Inhaler -) 2 puff IH Q6H PRN PRN Reason: SHORTNESS OF BREATH Amiodarone HCl (Cordarone -) 200 mg GT BID [facility] Last Admin: 09/02/17 21:28 Dose: 200 mg Apixaban (Eliquis -) 5 mg PO BID [facility] Last Admin: 09/02/17 21:28 Dose: 5 mg Digoxin (Lanoxin -) 0.25 mg PEG DAILY [facility] Furosemide (Lasix Injection -) 20 mg IVPUSH DAILY [facility] Last Admin: 09/02/17 09:36 Dose: 20 mg Cefepime HCl 2 gm/ Dextrose 100 mls @ 200 mls/hr IVPB Q8H-IV [facility]; Protocol Last Admin: 09/03/17 01:51 Dose: 200 mls/hr Potassium Chloride (Potassium Chloride 10 Meq Premix Ivpb -) 10 meq in 100 mls @ 100 mls/hr IVPB Q60M [facility] Stop: 09/03/17 10:59 Levothyroxine Sodium (Synthroid -) 25 mcg GT DAILY@0700 [facility] Last Admin: 09/03/17 06:41 Dose: 25 mcg Metoprolol Tartrate (Lopressor -) 50 mg GT Q6HPO [facility] Last Admin: 09/03/17 06:42 Dose: 50 mg Pantoprazole Sodium (Protonix Packets For Oral Suspension -) 40 mg PEG DAILY [facility] Last Admin: 09/02/17 09:36 Dose: 40 mg Senna (Senna Oral Solution -) 8.8 mg GT DAILY [facility] Last Admin: 09/02/17 10:00 Dose: 8.8 mg cxray- increased haziness left lung a/p sepsis-after spt change UTI-proteus +blood culture- suspect contaminant- one of four bottles hx MDRO chronic resp failure functional quadraplegia can switch to ceftriaxone to treat proteus uti doubt pneumonia
[2017-09-03] MEDS ORDERED: DEXTROSE 5%-WATER 100 ML IVPB ONE (09:22)
[2017-09-03] MEDS: KCL 10 MEQ IVPB 10 MEQ/100 ML INFUS.BAG IVPB SCH ×2 (09:32→10:17)
[2017-09-03] MEDS: CEFTRIAXONE 2 GM in DEXTROSE 5%-WATER 100 ML IVPB SCH (09:39)
--- NOTE | 2017-09-03 10:08 | PN ---
Progress Note (short form) - Note Progress Note: PULMONARY/CCM Pt seen and examined in the ICU. Vented, poorly responsive. Heart rates better controlled s/p digoxin. Vital Signs Period Temp Pulse Resp BP Sys/Bhardwaj Pulse Ox Last 24 Hr 99.3 F-99.6 F 86-138 12-19 80-115/59-73 96-99 Intake & Output 08/31/17 09/01/17 09/02/17 09/03/17 23:59 23:59 23:59 23:59 Intake Total 100 1270 2270 700 Output Total 500 1495 1700 600 Balance -400 -225 570 100 Weight 92.442 kg 92.533 kg 91.036 kg Gen: vented, poorly responsive Heart: irregular Lung: decreased breath sounds at the bases Abd: soft, nontender Ext: no edema CBC, BMP 09/02/17 05:52 09/02/17 05:52 Active Medications Acetaminophen (Tylenol Oral Solution -) 650 mg GT Q4H PRN PRN Reason: FEVER Albuterol Sulfate (Ventolin Hfa Inhaler -) 2 puff IH Q6H PRN PRN Reason: SHORTNESS OF BREATH Amiodarone HCl (Cordarone -) 200 mg GT BID [facility] Last Admin: 09/02/17 21:28 Dose: 200 mg Apixaban (Eliquis -) 5 mg PO BID [facility] Last Admin: 09/02/17 21:28 Dose: 5 mg Digoxin (Lanoxin -) 0.25 mg PEG DAILY [facility] Furosemide (Lasix Injection -) 20 mg IVPUSH DAILY [facility] Last Admin: 09/02/17 09:36 Dose: 20 mg Potassium Chloride (Potassium Chloride 10 Meq Premix Ivpb -) 10 meq in 100 mls @ 100 mls/hr IVPB Q60M [facility] Stop: 09/03/17 10:59 Last Admin: 09/03/17 09:32 Dose: 100 mls/hr Ceftriaxone Sodium 2 gm/ (Dextrose) 100 mls @ 200 mls/hr IVPB DAILY [facility]; Protocol Last Admin: 09/03/17 09:39 Dose: 200 mls/hr Levothyroxine Sodium (Synthroid -) 25 mcg GT DAILY@0700 [facility] Last Admin: 09/03/17 06:41 Dose: 25 mcg Metoprolol Tartrate (Lopressor -) 50 mg GT Q6HPO [facility] Last Admin: 09/03/17 06:42 Dose: 50 mg Pantoprazole Sodium (Protonix Packets For Oral Suspension -) 40 mg PEG DAILY [facility] Last Admin: 09/02/17 09:36 Dose: 40 mg Senna (Senna Oral Solution -) 8.8 mg GT DAILY [facility] Last Admin: 09/02/17 10:00 Dose: 8.8 mg A/P Chronic Respiratory Failure Atrial Fibrillation with RVR Pneumonia Anoxic Encephalopathy Hypothyroidism Functional Quadriplegia - rate control - continue anticoagulation - continue antibiotics - replete lytes - continue volume assist control - poor candidate for weaning at this time - enteral feeds - DVT/GI prophylaxis - can monitor on vent floor
[2017-09-03] MEDS: AMIODARONE HCL 200 MG TABLET (FP) GT SCH ×2 (10:14→21:48)
[2017-09-03] MEDS: PANTOPRAZOLE SOD 40 MG SUSPENSION PACKET PEG SCH (10:14)
[2017-09-03] MEDS: APIXABAN 5 MG TABLET PO SCH ×2 (10:14→21:48)
[2017-09-03] MEDS: FUROSEMIDE 40 MG/4 ML INJECTABLE VIAL IVPUSH SCH (10:15)
[2017-09-03] MEDS: DIGOXIN 0.25 MG TABLET (FP) PEG SCH (10:15)
[2017-09-03] MEDS ORDERED: POTASSIUM CHLORIDE ORAL LIQUID 20 MEQ/15 ML PO ONE (10:30)
[2017-09-03] MEDS: SENNOSIDES 8.8 MG/5 ML BULK BOTTLE GT SCH (12:36)
--- NOTE | 2017-09-03 14:57 | PN ---
Progress Note (short form) - Note Progress Note: overall condition same all f/u noted vent dependent in icu Vital Signs Temp 99.2 F 09/03/17 13:43 Pulse 102 H 09/03/17 13:43 Resp 17 09/03/17 13:43 BP 115/84 09/03/17 13:43 Pulse Ox 99 09/03/17 09:00 Intake & Output 09/02/17 09/03/17 09/03/17 23:59 11:59 23:59 Intake Total 1380 700 300 Output Total 1600 600 650 Balance -220 100 -350 Intake: IVPB 500 100 300 Tube Feeding 520 400 Tube Irrigant 360 200 Output: Urine 1600 600 650 Supra Pubic Tube 1600 600 650 Other: Voiding Method Indwelling Catheter Indwelling Catheter Bowel Movement Yes # Bowel Movements 1 Weight Measurement Method Built in [facility] Active Medications Acetaminophen (Tylenol Oral Solution -) 650 mg GT Q4H PRN PRN Reason: FEVER Albuterol Sulfate (Ventolin Hfa Inhaler -) 2 puff IH Q6H PRN PRN Reason: SHORTNESS OF BREATH Amiodarone HCl (Cordarone -) 200 mg GT BID [facility] Last Admin: 09/03/17 10:14 Dose: 200 mg Apixaban (Eliquis -) 5 mg PO BID [facility] Last Admin: 09/03/17 10:14 Dose: 5 mg Digoxin (Lanoxin -) 0.25 mg PEG DAILY [facility] Last Admin: 09/03/17 10:15 Dose: 0.25 mg Furosemide (Lasix Injection -) 20 mg IVPUSH DAILY [facility] Last Admin: 09/03/17 10:15 Dose: 20 mg Ceftriaxone Sodium 2 gm/ (Dextrose) 100 mls @ 200 mls/hr IVPB DAILY [facility]; Protocol Last Admin: 09/03/17 09:39 Dose: 200 mls/hr Levothyroxine Sodium (Synthroid -) 25 mcg GT DAILY@0700 [facility] Last Admin: 09/03/17 06:41 Dose: 25 mcg Metoprolol Tartrate (Lopressor -) 50 mg GT Q6HPO [facility] Last Admin: 09/03/17 12:35 Dose: 50 mg Pantoprazole Sodium (Protonix Packets For Oral Suspension -) 40 mg PEG DAILY [facility] Last Admin: 09/03/17 10:14 Dose: 40 mg Senna (Senna Oral Solution -) 8.8 mg GT DAILY [facility] Last Admin: 09/03/17 12:36 Dose: Not Given CBC, BMP 09/02/17 05:52 09/02/17 05:52 Microbiology 08/30/17 12:20 Blood Culture - Preliminary Blood - Peripheral Venous NO GROWTH OBTAINED AFTER 96 HOURS, INCUBATION TO CONTINUE FOR 1 DAYS. 09/01/17 11:50 Blood Culture - Preliminary Blood - Peripheral Venous NO GROWTH OBTAINED AFTER 48 HOURS, INCUBATION TO CONTINUE FOR 3 DAYS. 08/31/17 00:01 Gram Stain - Final Sputum - Endotrachea Suction/Ventilator Sputum Culture - Final Acinetobacter Baumannii/Haemol Diphtheroid/Corynebacterium 08/30/17 12:20 Blood Culture - Final Blood - Peripheral Venous Staphylococcus Coagulase Neg 09/01/17 11:20 Blood Culture - Preliminary Blood - Peripheral Venous NO GROWTH OBTAINED AFTER 48 HOURS, INCUBATION TO CONTINUE FOR 3 DAYS. 08/30/17 16:50 Urine Culture - Final Urine - Urine - Catheterized Proteus Mirabilis Physical Exam Gen: non verbal . s/p trach - vent PULM: scattered rhonchi, CV: S1, S2 Irregular ABD: PEG, supra public catheter . EXT: venous stasis changes, 2+ pitting depend edema, stage IV 2x2 sacral . A/P Sepsis Rapid afib Chronic Respiratory Failure/vent dep Functional Quadriplegia Anemia -cardiomyopathy - uti +ve cultures-- likley contaminant - Abx - i/d on case - cardiology on case - meds reviewed - continue present care - sacral decubitus care - overall condition gaurded - monitor lytes - will follow Problem List - Problems (1) Atrial fibrillation Code(s): I48.91 - UNSPECIFIED ATRIAL FIBRILLATION Qualifiers: Atrial fibrillation type: unspecified Qualified Code(s): I48.91 - Unspecified atrial fibrillation (2) Seizure Code(s): R56.9 - UNSPECIFIED CONVULSIONS (3) Anemia Code(s): D64.9 - ANEMIA, UNSPECIFIED (4) Quadriplegia, functional Code(s): R53.2 - FUNCTIONAL QUADRIPLEGIA (5) Rapid atrial fibrillation Code(s): I48.91 - UNSPECIFIED ATRIAL FIBRILLATION (6) UTI (urinary tract infection) Code(s): N39.0 - URINARY TRACT INFECTION, SITE NOT SPECIFIED Qualifiers: Urinary tract infection type: site unspecified Hematuria presence: without hematuria Qualified Code(s): N39.0 - Urinary tract infection, site not specified
[2017-09-04] MEDS: METOPROLOL TARTRATE 50 MG TABLET (FP) GT SCH ×4 (00:09→21:14)
[2017-09-04] MEDS: LEVOTHYROXINE NA 25 MCG TABLET (FP) GT SCH (06:16)
[2017-09-04 06:40] LABS: BASO % 0.6 % (0-2.0); EOS % 9.1 % (0-4.5); HEMATOCRIT 35.7 % (35.4-49); HEMOGLOBIN 12.1 GM/dL (11.7-16.9); LYMPH % 20.6 % (8-40); MCH 33.4 pg (25.7-33.7); MEAN CELL VOLUME 98.5 fl (80-96); MEAN PLT VOLUME 10.1 fl (7.5-11.1); MONO % 8.2 % (3.8-10.2); NEUT % 61.5 % (42.8-82.8); PLATELET COUNT 216 K/MM3 (134-434); RBC 3.63 M/mm3 (4.00-5.60); RDW 14.4 % (11.9-15.9); WHITE BLOOD COUNT 8.2 K/mm3 (4.0-10.0)
--- NOTE | 2017-09-04 07:07 | PN ---
Progress Note, Physician Chief Complaint: ID Day 3 antibiotics Now switch to Ceftriaxone Appears comfortable - Current Medication List Current Medications: Active Medications Acetaminophen (Tylenol Oral Solution -) 650 mg GT Q4H PRN PRN Reason: FEVER Albuterol Sulfate (Ventolin Hfa Inhaler -) 2 puff IH Q6H PRN PRN Reason: SHORTNESS OF BREATH Amiodarone HCl (Cordarone -) 200 mg GT BID [facility] Last Admin: 09/03/17 21:48 Dose: 200 mg Apixaban (Eliquis -) 5 mg PO BID [facility] Last Admin: 09/03/17 21:48 Dose: 5 mg Digoxin (Lanoxin -) 0.25 mg PEG DAILY [facility] Last Admin: 09/03/17 10:15 Dose: 0.25 mg Furosemide (Lasix Injection -) 20 mg IVPUSH DAILY [facility] Last Admin: 09/03/17 10:15 Dose: 20 mg Ceftriaxone Sodium 2 gm/ (Dextrose) 100 mls @ 200 mls/hr IVPB DAILY [facility]; Protocol Last Admin: 09/03/17 09:39 Dose: 200 mls/hr Levothyroxine Sodium (Synthroid -) 25 mcg GT DAILY@0700 [facility] Last Admin: 09/04/17 06:16 Dose: 25 mcg Metoprolol Tartrate (Lopressor -) 50 mg GT Q6HPO [facility] Last Admin: 09/04/17 06:16 Dose: 50 mg Pantoprazole Sodium (Protonix Packets For Oral Suspension -) 40 mg PEG DAILY [facility] Last Admin: 09/03/17 10:14 Dose: 40 mg Senna (Senna Oral Solution -) 8.8 mg GT DAILY [facility] Last Admin: 09/03/17 12:36 Dose: Not Given - Objective Vital Signs: Vital Signs Temperature 98.8 F 09/04/17 02:00 Pulse Rate 75 09/04/17 04:00 Respiratory Rate 16 09/04/17 04:00 Blood Pressure 88/64 09/04/17 04:00 O2 Sat by Pulse Oximetry (%) 100 09/03/17 21:27 Constitutional: Yes: No Distress Neck: Yes: Other (Trach) Cardiovascular: Yes: S1, S2, Other (Irreg irreg) Gastrointestinal: Yes: Soft. No: Tenderness Labs: CBC, BMP 09/04/17 05:35 INR, PTT INR 1.35 (0.82-1.09) H 05/23/18 12:20 Assessment/Plan Microbiology 08/31/17 00:01 Sputum - Endotrachea Suction/Ventilator Gram Stain - Final 08/31/17 00:01 Sputum - Endotrachea Suction/Ventilator Sputum Culture - Final Acinetobacter Baumannii/Haemol Diphtheroid/Corynebacterium 08/30/17 16:50 Urine - Urine - Catheterized Urine Culture - Final Proteus Mirabilis 08/30/17 12:20 Blood - Peripheral Venous Blood Culture - Final Staphylococcus Coagulase Neg 09/01/17 11:50 Blood - Peripheral Venous Blood Culture - Preliminary NO GROWTH OBTAINED AFTER 48 HOURS, INCUBATION TO CONTINUE FOR 3 DAYS. 09/01/17 11:20 Blood - Peripheral Venous Blood Culture - Preliminary NO GROWTH OBTAINED AFTER 48 HOURS, INCUBATION TO CONTINUE FOR 3 DAYS. Laboratory Tests 08/30/17 09/02/17 09/04/17 16:50 05:52 05:35 WBC 8.2 Plt Count 216 D BUN 14 D Creatinine 0.7 Urine WBC (Auto) 100 Assessment Blood culture a contaminant Colonization MDRO Proteus UTI Atrial fibrillation Plan Continue current antibiotic Ceftriaxone as ordered Veena ROY
[2017-09-04 07:10] LABS: ANION GAP 6 (8-16); BLOOD UREA NITROGEN 10 mg/dL (7-18); CALCIUM 8.9 mg/dL (8.5-10.1); CHLORIDE 107 mmol/L (98-107); CO2 29 mmol/L (21-32); GLUCOSE,RANDOM 129 mg/dL (74-106); POTASSIUM 3.8 mmol/L (3.5-5.1); SODIUM 142 mmol/L (136-145)
[2017-09-04 07:13] LABS: CREATININE 0.6 mg/dL (0.7-1.3); PHOSPHOROUS 3.3 mg/dL (2.5-4.9)
--- NOTE | 2017-09-04 07:15 | PN ---
Progress Note (short form) - Note Progress Note: Chief Complaint: Events noted, notes reviewed, awake in no distress, atrial fibrillation persists with periodic rapid ventricular response History of Present Illness: Seen and examined in the ICU. Events noted, notes reviewed, awake in no distress , atrial fibrillation persists with periodic rapid ventricular response Echocardiography dated 08/01/17 revealed normal LV size and function with trace to mild MR Medications: Current Medications Acetaminophen (Tylenol Oral Solution -) 650 mg GT Q4H PRN PRN Reason: FEVER Albuterol Sulfate (Ventolin Hfa Inhaler -) 2 puff IH Q6H PRN PRN Reason: SHORTNESS OF BREATH Amiodarone HCl (Cordarone -) 200 mg GT BID [facility] Last Admin: 09/03/17 21:48 Dose: 200 mg Apixaban (Eliquis -) 5 mg PO BID [facility] Last Admin: 09/03/17 21:48 Dose: 5 mg Digoxin (Lanoxin -) 0.25 mg PEG DAILY [facility] Last Admin: 09/03/17 10:15 Dose: 0.25 mg Furosemide (Lasix Injection -) 20 mg IVPUSH DAILY [facility] Last Admin: 09/03/17 10:15 Dose: 20 mg Ceftriaxone Sodium 2 gm/ (Dextrose) 100 mls @ 200 mls/hr IVPB DAILY [facility]; Protocol Last Admin: 09/03/17 09:39 Dose: 200 mls/hr Levothyroxine Sodium (Synthroid -) 25 mcg GT DAILY@0700 [facility] Last Admin: 09/04/17 06:16 Dose: 25 mcg Metoprolol Tartrate (Lopressor -) 50 mg GT Q6HPO [facility] Last Admin: 09/04/17 06:16 Dose: 50 mg Pantoprazole Sodium (Protonix Packets For Oral Suspension -) 40 mg PEG DAILY [facility] Last Admin: 09/03/17 10:14 Dose: 40 mg Senna (Senna Oral Solution -) 8.8 mg GT DAILY [facility] Last Admin: 09/03/17 12:36 Dose: Not Given Review of Systems Unable to obtain Vital Signs: Last Vital Signs Temp Pulse Resp BP Pulse Ox 98.8 F 75 16 88/64 100 09/04/17 02:00 09/04/17 04:00 09/04/17 04:00 09/04/17 04:00 09/03/17 21:27 Intake & Output 09/01/17 09/02/17 09/03/17 09/04/17 23:59 23:59 23:59 23:59 Intake Total 1270 2270 1580 Output Total 1495 1700 1951 450 Balance -225 570 -371 -450 Weight 204 lb 200 lb 11.2 oz Neck: Supple Negative JVD Respiratory: Diminished Breath Sounds Bilaterally with Scattered Rhonchi Cardiovascular: S1 S1 Irregularly Irregular Gastrointestinal: Soft Benign Normal Bowel Sounds Ext: Edema Labs: CBC, BMP 09/04/17 05:35 09/04/17 05:35 Hepatic Panel Total Bilirubin 0.5 mg/dL (0.2-1.0) D 09/02/17 05:52 AST 17 U/L (15-37) 09/02/17 05:52 ALT 21 U/L (12-78) 09/02/17 05:52 Alkaline Phosphatase 59 U/L (45-117) 09/02/17 05:52 Albumin 2.4 g/dl (3.4-5.0) L 09/02/17 05:52 INR, PTT INR 1.35 (0.82-1.09) H 08/30/17 12:20 Assessment/Plan ASSESSMENT: 1. Persistent atrial fibrillation with periods of rapid ventricular response [id number] score of 0-1 on DOAC's/Eliquis, periods of rapid ventricular response 2. Chronic respiratory failure ventilator dependent/tracheostomy, acute exacerbation pneumonia and probable 3. Congestive heart failure related to diastolic LV dysfunction, resolving 4. Anoxic encephalopathy/history of anoxic brain injury post 5. History of cardiac arrest 6. History of substance abuse 7. Anemia 8. Hypokalemia, resolved PLAN: 1. Continue Eliquis with close monitoring of CBC, maintain Hg equal or > 8.0 2. Continue Lopressor, hemodynamics permitting, but decrease dosage to Q8h 3. Continue Amiodarone at 200 mg twice daily for total of 1 week and then 200 mg daily 4. Continue Digoxin with caution and close monitoring of level 5. IV diuretics with close monitoring of renal function and electrolytes 6. May consider the addition of ARBS, hemodynamics permitting 7. Antibiotics as per the primary and ID teams Haja Fox MD
[2017-09-04] MEDS ORDERED: DEXTROSE 5%-WATER 100 ML IVPB ONE (09:31)
--- NOTE | 2017-09-04 09:49 | PN ---
Progress Note (short form) - Note Progress Note: PULMONARY/CCM Pt seen and examined in the ICU. -awaiting floor bed -improved HR with dig -stable hemodynamics and afebile Vital Signs Temp 98.8 F 09/04/17 02:00 Pulse 88 09/04/17 08:00 Resp 16 09/04/17 08:37 BP 135/81 09/04/17 08:00 Pulse Ox 100 09/04/17 08:37 Intake & Output 09/03/17 09/03/17 09/04/17 11:59 23:59 11:59 Intake Total 700 880 Output Total 600 1351 450 Balance 100 -471 -450 Intake: IVPB 100 300 Tube Feeding 400 340 Tube Irrigant 200 240 Output: Urine 600 1351 450 Supra Pubic Tube 600 1351 450 Other: Voiding Method Indwelling Catheter Indwelling Catheter Indwelling Catheter Bowel Movement Yes # Bowel Movements 1 Weight Measurement Method [facility] Gen: vented, poorly responsive Heart: irregular, tachy Lung: decreased breath sounds at the bases Abd: soft, nontender Ext: no edema CBCD WBC 8.2 K/mm3 (4.0-10.0) 09/04/17 05:35 RBC 3.63 M/mm3 (4.00-5.60) L 09/04/17 05:35 Hgb 12.1 GM/dL (11.7-16.9) D 09/04/17 05:35 Hct 35.7 % (35.4-49) D 09/04/17 05:35 MCV 98.5 fl (80-96) H 09/04/17 05:35 MCHC 34.0 g/dl (32.0-35.9) 09/04/17 05:35 RDW 14.4 % (11.9-15.9) 09/04/17 05:35 Plt Count 216 K/MM3 (134-434) D 09/04/17 05:35 MPV 10.1 fl (7.5-11.1) 09/04/17 05:35 CMP Sodium 142 mmol/L (136-145) 09/04/17 05:35 Potassium 3.8 mmol/L (3.5-5.1) D 09/04/17 05:35 Chloride 107 mmol/L (98-107) 09/04/17 05:35 Carbon Dioxide 29 mmol/L (21-32) 09/04/17 05:35 Anion Gap 6 (8-16) L 09/04/17 05:35 BUN 10 mg/dL (7-18) D 09/04/17 05:35 Creatinine 0.6 mg/dL (0.7-1.3) L 09/04/17 05:35 Creat Clearance w eGFR > 60 (>60) 09/02/17 05:52 Calcium 8.9 mg/dL (8.5-10.1) 09/04/17 05:35 Total Bilirubin 0.5 mg/dL (0.2-1.0) D 09/02/17 05:52 AST 17 U/L (15-37) 09/02/17 05:52 ALT 21 U/L (12-78) 09/02/17 05:52 Alkaline Phosphatase 59 U/L (45-117) 09/02/17 05:52 Total Protein 6.2 g/dl (6.4-8.2) L 09/02/17 05:52 Albumin 2.4 g/dl (3.4-5.0) L 09/02/17 05:52 Active Medications Acetaminophen (Tylenol Oral Solution -) 650 mg GT Q4H PRN PRN Reason: FEVER Albuterol Sulfate (Ventolin Hfa Inhaler -) 2 puff IH Q6H PRN PRN Reason: SHORTNESS OF BREATH Amiodarone HCl (Cordarone -) 200 mg GT BID [facility] Last Admin: 09/03/17 21:48 Dose: 200 mg Apixaban (Eliquis -) 5 mg PO BID [facility] Last Admin: 09/03/17 21:48 Dose: 5 mg Digoxin (Lanoxin -) 0.25 mg PEG DAILY [facility] Last Admin: 09/03/17 10:15 Dose: 0.25 mg Furosemide (Lasix Injection -) 20 mg IVPUSH DAILY [facility] Last Admin: 09/03/17 10:15 Dose: 20 mg Ceftriaxone Sodium 2 gm/ (Dextrose) 100 mls @ 200 mls/hr IVPB DAILY [facility]; Protocol Last Admin: 09/03/17 09:39 Dose: 200 mls/hr Levothyroxine Sodium (Synthroid -) 25 mcg GT DAILY@0700 [facility] Last Admin: 09/04/17 06:16 Dose: 25 mcg Metoprolol Tartrate (Lopressor -) 50 mg GT TID [facility] Pantoprazole Sodium (Protonix Packets For Oral Suspension -) 40 mg PEG DAILY [facility] Last Admin: 09/03/17 10:14 Dose: 40 mg Senna (Senna Oral Solution -) 8.8 mg GT DAILY [facility] Last Admin: 09/03/17 12:36 Dose: Not Given A/P Chronic Respiratory Failure Atrial Fibrillation with RVR Pneumonia Anoxic Encephalopathy Hypothyroidism Functional Quadriplegia - continue anticoagulation and rate control as per Cards - continue antibiotics, ceftriaxone x 7 days - replete lytes - continue volume assist control - poor candidate for weaning at this time - enteral feeds - DVT/GI prophylaxis - can monitor on vent floor [facility] [place] [facility]
[2017-09-04] MEDS: CEFTRIAXONE 2 GM in DEXTROSE 5%-WATER 100 ML IVPB SCH (10:28)
[2017-09-04] MEDS: PANTOPRAZOLE SOD 40 MG SUSPENSION PACKET PEG SCH (10:28)
[2017-09-04] MEDS: FUROSEMIDE 40 MG/4 ML INJECTABLE VIAL IVPUSH SCH (10:28)
[2017-09-04] MEDS: DIGOXIN 0.25 MG TABLET (FP) PEG SCH (10:29)
[2017-09-04] MEDS: AMIODARONE HCL 200 MG TABLET (FP) GT SCH ×2 (10:29→21:14)
[2017-09-04] MEDS: APIXABAN 5 MG TABLET PO SCH ×2 (10:29→21:14)
[2017-09-04] MEDS: SENNOSIDES 8.8 MG/5 ML BULK BOTTLE GT SCH (10:30)
[2017-09-04] MEDS: ACETAMINOPHEN 650 MG/20.3 ML ORAL SOLUTION (CUPS) GT PRN (10:31)
--- NOTE | 2017-09-04 11:35 | PN ---
Progress Note (short form) - Note Progress Note: Pt seen/ examined awake on vent afebrile hr better control all f/u noted/ appreciated Vital Signs Temp 99.9 F H 09/04/17 10:00 Pulse 118 H 09/04/17 10:29 Resp 14 09/04/17 10:00 BP 107/70 09/04/17 10:00 Pulse Ox 100 09/04/17 08:37 Intake & Output 09/03/17 09/03/17 09/04/17 11:59 23:59 11:59 Intake Total 700 880 Output Total 600 1351 450 Balance 100 -471 -450 Intake: IVPB 100 300 Tube Feeding 400 340 Tube Irrigant 200 240 Output: Urine 600 1351 450 Supra Pubic Tube 600 1351 450 Other: Voiding Method Indwelling Catheter Indwelling Catheter Indwelling Catheter Bowel Movement Yes # Bowel Movements 1 Weight Measurement Method Built in Bedscale Built in [facility] Active Medications Acetaminophen (Tylenol Oral Solution -) 650 mg GT Q4H PRN PRN Reason: FEVER Last Admin: 09/04/17 10:31 Dose: 650 mg Albuterol Sulfate (Ventolin Hfa Inhaler -) 2 puff IH Q6H PRN PRN Reason: SHORTNESS OF BREATH Amiodarone HCl (Cordarone -) 200 mg GT BID [facility] Last Admin: 09/04/17 10:29 Dose: 200 mg Apixaban (Eliquis -) 5 mg PO BID [facility] Last Admin: 09/04/17 10:29 Dose: 5 mg Digoxin (Lanoxin -) 0.25 mg PEG DAILY [facility] Last Admin: 09/04/17 10:29 Dose: 0.25 mg Furosemide (Lasix Injection -) 20 mg IVPUSH DAILY [facility] Last Admin: 09/04/17 10:28 Dose: 20 mg Ceftriaxone Sodium 2 gm/ (Dextrose) 100 mls @ 200 mls/hr IVPB DAILY [facility]; Protocol Last Admin: 09/04/17 10:28 Dose: 200 mls/hr Levothyroxine Sodium (Synthroid -) 25 mcg GT DAILY@0700 [facility] Last Admin: 09/04/17 06:16 Dose: 25 mcg Metoprolol Tartrate (Lopressor -) 50 mg GT TID [facility] Pantoprazole Sodium (Protonix Packets For Oral Suspension -) 40 mg PEG DAILY [facility] Last Admin: 09/04/17 10:28 Dose: 40 mg Senna (Senna Oral Solution -) 8.8 mg GT DAILY [facility] Last Admin: 09/04/17 10:30 Dose: Not Given CBC, BMP 09/04/17 05:35 09/04/17 05:35 Microbiology 09/01/17 11:20 Blood Culture - Preliminary Blood - Peripheral Venous NO GROWTH OBTAINED AFTER 72 HOURS, INCUBATION TO CONTINUE FOR 2 DAYS. 08/30/17 12:20 Blood Culture - Preliminary Blood - Peripheral Venous NO GROWTH OBTAINED AFTER 96 HOURS, INCUBATION TO CONTINUE FOR 1 DAYS. 09/01/17 11:50 Blood Culture - Preliminary Blood - Peripheral Venous NO GROWTH OBTAINED AFTER 48 HOURS, INCUBATION TO CONTINUE FOR 3 DAYS. 08/31/17 00:01 Gram Stain - Final Sputum - Endotrachea Suction/Ventilator Sputum Culture - Final Acinetobacter Baumannii/Haemol Diphtheroid/Corynebacterium 08/30/17 12:20 Blood Culture - Final Blood - Peripheral Venous Staphylococcus Coagulase Neg Physical Exam Gen: non verbal . awake on vent . s/p trach - vent PULM: scattered rhonchi, CV: S1, S2 Irregular ABD: PEG, supra public catheter . EXT: venous stasis changes, 2+ pitting depend edema, stage IV 2x2 sacral . A/P Sepsis Rapid afib Chronic Respiratory Failure/vent dependent Functional Quadriplegia Anemia -cardiomyopathy - uti +ve cultures-- likely contaminant - Abx per i/d - i/d on case - cardiology on case - meds reviewed - continue present care - sacral decubitus care - overall condition gaurded - monitor lytes - check digoxin level - will follow Problem List - Problems (1) Atrial fibrillation Code(s): I48.91 - UNSPECIFIED ATRIAL FIBRILLATION Qualifiers: Atrial fibrillation type: unspecified Qualified Code(s): I48.91 - Unspecified atrial fibrillation (2) Seizure Code(s): R56.9 - UNSPECIFIED CONVULSIONS (3) Anemia Code(s): D64.9 - ANEMIA, UNSPECIFIED (4) Quadriplegia, functional Code(s): R53.2 - FUNCTIONAL QUADRIPLEGIA (5) Rapid atrial fibrillation Code(s): I48.91 - UNSPECIFIED ATRIAL FIBRILLATION (6) UTI (urinary tract infection) Code(s): N39.0 - URINARY TRACT INFECTION, SITE NOT SPECIFIED Qualifiers: Urinary tract infection type: site unspecified Hematuria presence: without hematuria Qualified Code(s): N39.0 - Urinary tract infection, site not specified
[2017-09-05] MEDS: METOPROLOL TARTRATE 50 MG TABLET (FP) GT SCH ×3 (06:00→21:50)
[2017-09-05] MEDS: ACETAMINOPHEN 650 MG/20.3 ML ORAL SOLUTION (CUPS) GT PRN ×2 (06:00→18:26)
[2017-09-05] MEDS: LEVOTHYROXINE NA 25 MCG TABLET (FP) GT SCH (06:00)
[2017-09-05 06:46] LABS: CHLORIDE 107 mmol/L (98-107); POTASSIUM 3.6 mmol/L (3.5-5.1); SODIUM 142 mmol/L (136-145)
[2017-09-05 07:05] LABS: ALBUMIN 2.4 g/dl (3.4-5.0); ALK PHOS 58 U/L (45-117); ANION GAP 7 (8-16); BILIRUBIN,TOTAL 0.3 mg/dL (0.2-1.0); BLOOD UREA NITROGEN 13 mg/dL (7-18); CALCIUM 8.6 mg/dL (8.5-10.1); CO2 28 mmol/L (21-32); CREATININE 0.6 mg/dL (0.7-1.3); GLUCOSE,RANDOM 122 mg/dL (74-106); SGOT/AST 14 U/L (15-37); SGPT/ALT 16 U/L (12-78); TOT PROT 6.1 g/dl (6.4-8.2)
--- NOTE | 2017-09-05 07:10 | PN ---
Progress Note (short form) - Note Progress Note: Chief Complaint: Events noted, notes reviewed, awake in no distress, atrial fibrillation persists with periodic rapid ventricular response, improved History of Present Illness: Seen and examined in the ICU. Events noted, notes reviewed, awake in no distress , atrial fibrillation persists with periodic rapid ventricular response, improved Echocardiography dated 08/01/17 revealed normal LV size and function with trace to mild MR Medications: Current Medications Acetaminophen (Tylenol Oral Solution -) 650 mg GT Q4H PRN PRN Reason: FEVER Last Admin: 09/05/17 06:00 Dose: 650 mg Albuterol Sulfate (Ventolin Hfa Inhaler -) 2 puff IH Q6H PRN PRN Reason: SHORTNESS OF BREATH Amiodarone HCl (Cordarone -) 200 mg GT BID [facility] Last Admin: 09/04/17 21:14 Dose: 200 mg Apixaban (Eliquis -) 5 mg PO BID [facility] Last Admin: 09/04/17 21:14 Dose: 5 mg Digoxin (Lanoxin -) 0.25 mg PEG DAILY [facility] Last Admin: 09/04/17 10:29 Dose: 0.25 mg Furosemide (Lasix Injection -) 20 mg IVPUSH DAILY [facility] Last Admin: 09/04/17 10:28 Dose: 20 mg Ceftriaxone Sodium 2 gm/ (Dextrose) 100 mls @ 200 mls/hr IVPB DAILY [facility]; Protocol Last Admin: 09/04/17 10:28 Dose: 200 mls/hr Levothyroxine Sodium (Synthroid -) 25 mcg GT DAILY@0700 [facility] Last Admin: 09/05/17 06:00 Dose: 25 mcg Metoprolol Tartrate (Lopressor -) 50 mg GT TID [facility] Last Admin: 09/05/17 06:00 Dose: 50 mg Pantoprazole Sodium (Protonix Packets For Oral Suspension -) 40 mg PEG DAILY [facility] Last Admin: 09/04/17 10:28 Dose: 40 mg Senna (Senna Oral Solution -) 8.8 mg GT DAILY [facility] Last Admin: 09/04/17 10:30 Dose: Not Given Review of Systems Unable to obtain Vital Signs: Last Vital Signs Temp Pulse Resp BP Pulse Ox 98.6 F 126 H 20 116/104 100 09/05/17 06:00 09/05/17 06:00 09/05/17 06:00 09/05/17 06:00 09/05/17 00:58 Intake & Output 09/02/17 09/03/17 09/04/17 09/05/17 23:59 23:59 23:59 23:59 Intake Total 2270 1580 300 900 Output Total 1700 1951 1200 300 Balance 570 -371 -900 600 Weight 200 lb 11.2 oz 188 lb 12.8 oz Neck: Supple Negative JVD Respiratory: Diminished Breath Sounds Bilaterally with Scattered Rhonchi Cardiovascular: S1 S1 Irregularly Irregular Gastrointestinal: Soft Benign Normal Bowel Sounds Ext: Edema Labs: CBC, BMP 09/04/17 05:35 09/04/17 05:35 Hepatic Panel Total Bilirubin 0.5 mg/dL (0.2-1.0) D 09/02/17 05:52 AST 17 U/L (15-37) 09/02/17 05:52 ALT 21 U/L (12-78) 09/02/17 05:52 Alkaline Phosphatase 59 U/L (45-117) 09/02/17 05:52 Albumin 2.4 g/dl (3.4-5.0) L 09/02/17 05:52 INR, PTT INR 1.35 (0.82-1.09) H 08/30/17 12:20 Blood test from this AM pending Assessment/Plan ASSESSMENT: 1. Persistent atrial fibrillation with periods of rapid ventricular response ( improved) [id number] score of 0-1 on DOAC's/Eliquis 2. Chronic respiratory failure ventilator dependent/tracheostomy, acute exacerbation pneumonia and probable 3. Congestive heart failure related to diastolic LV dysfunction, resolving 4. Anoxic encephalopathy/history of anoxic brain injury post 5. History of cardiac arrest 6. History of substance abuse 7. Anemia PLAN: 1. Continue Eliquis with close monitoring of CBC, maintain Hg equal or > 8.0 2. Continue Lopressor, hemodynamics permitting 3. Continue Amiodarone at 200 mg twice daily for total of 1 week (September 08) and then 200 mg daily 4. Continue Digoxin with caution and close monitoring of level 5. IV diuretics with close monitoring of renal function and electrolytes 6. May consider the addition of ARBS, hemodynamics permitting 7. Antibiotics as per the primary and ID teams 8. Chest x-ray this AM 9. Follow labs from this AM Haja Fox MD
[2017-09-05 08:35] LABS: BASO % 0.7 % (0-2.0); EOS % 7.3 % (0-4.5); HEMATOCRIT 32.9 % (35.4-49); HEMOGLOBIN 11.2 GM/dL (11.7-16.9); MCH 33.3 pg (25.7-33.7); MCHC 33.9 g/dl (32.0-35.9); MEAN CELL VOLUME 98.2 fl (80-96); MEAN PLT VOLUME 10.2 fl (7.5-11.1); MONO % 7.9 % (3.8-10.2); NEUT % 59.1 % (42.8-82.8); PLATELET COUNT 192 K/MM3 (134-434); RBC 3.35 M/mm3 (4.00-5.60); RDW 14.6 % (11.9-15.9); WHITE BLOOD COUNT 6.3 K/mm3 (4.0-10.0)
[2017-09-05] MEDS ORDERED: PT OWN MED DRAWER 7, Y5N ONE (09:16)
[2017-09-05] MEDS ORDERED: DEXTROSE 5%-WATER 100 ML IVPB ONE (09:17)
[2017-09-05] MEDS: FUROSEMIDE 40 MG/4 ML INJECTABLE VIAL IVPUSH SCH (09:24)
[2017-09-05] MEDS: SENNOSIDES 8.8 MG/5 ML BULK BOTTLE GT SCH (09:24)
[2017-09-05] MEDS: APIXABAN 5 MG TABLET PO SCH ×2 (09:25→21:50)
[2017-09-05] MEDS: AMIODARONE HCL 200 MG TABLET (FP) GT SCH ×2 (09:25→21:50)
[2017-09-05] MEDS: DIGOXIN 0.25 MG TABLET (FP) PEG SCH (09:26)
[2017-09-05] MEDS: CEFTRIAXONE 2 GM in DEXTROSE 5%-WATER 100 ML IVPB SCH (09:27)
[2017-09-05] MEDS: PANTOPRAZOLE SOD 40 MG SUSPENSION PACKET PEG SCH (09:27)
--- NOTE | 2017-09-05 09:55 | PN ---
Progress Note (short form) - Note Progress Note: trach to vent no pressors Vital Signs Period Temp Pulse Resp BP Sys/Bhardwaj Pulse Ox Last 24 Hr 98.6 F-99.9 F 65-130 14-20 102-116/70-104 98-100 trach to vent cor-rrr lungs decreased bs at bases abd soft,nt ext +edema +spt with blood tinged urine CBC, BMP 09/05/17 05:30 09/05/17 05:30 Microbiology 08/30/17 12:20 Blood - Peripheral Venous Blood Culture - Final NO GROWTH AFTER 5 DAYS INCUBATION 09/01/17 11:50 Blood - Peripheral Venous Blood Culture - Preliminary NO GROWTH OBTAINED AFTER 72 HOURS, INCUBATION TO CONTINUE FOR 2 DAYS. 09/01/17 11:20 Blood - Peripheral Venous Blood Culture - Preliminary NO GROWTH OBTAINED AFTER 72 HOURS, INCUBATION TO CONTINUE FOR 2 DAYS. 08/31/17 00:01 Sputum - Endotrachea Suction/Ventilator Gram Stain - Final 08/31/17 00:01 Sputum - Endotrachea Suction/Ventilator Sputum Culture - Final Acinetobacter Baumannii/Haemol Diphtheroid/Corynebacterium 08/30/17 12:20 Blood - Peripheral Venous Blood Culture - Final Staphylococcus Coagulase Neg 08/30/17 16:50 Urine - Urine - Catheterized Urine Culture - Final Proteus Mirabilis Current Medications Acetaminophen (Tylenol Oral Solution -) 650 mg GT Q4H PRN PRN Reason: FEVER Last Admin: 09/05/17 06:00 Dose: 650 mg Albuterol Sulfate (Ventolin Hfa Inhaler -) 2 puff IH Q6H PRN PRN Reason: SHORTNESS OF BREATH Amiodarone HCl (Cordarone -) 200 mg GT BID [facility] Last Admin: 09/05/17 09:25 Dose: 200 mg Apixaban (Eliquis -) 5 mg PO BID [facility] Last Admin: 09/05/17 09:25 Dose: 5 mg Digoxin (Lanoxin -) 0.25 mg PEG DAILY [facility] Last Admin: 09/05/17 09:26 Dose: 0.25 mg Furosemide (Lasix Injection -) 20 mg IVPUSH DAILY [facility] Last Admin: 09/05/17 09:24 Dose: 20 mg Ceftriaxone Sodium 2 gm/ (Dextrose) 100 mls @ 200 mls/hr IVPB DAILY [facility]; Protocol Last Admin: 09/05/17 09:27 Dose: 200 mls/hr Levothyroxine Sodium (Synthroid -) 25 mcg GT DAILY@0700 [facility] Last Admin: 09/05/17 06:00 Dose: 25 mcg Metoprolol Tartrate (Lopressor -) 50 mg GT TID [facility] Last Admin: 09/05/17 06:00 Dose: 50 mg Pantoprazole Sodium (Protonix Packets For Oral Suspension -) 40 mg PEG DAILY [facility] Last Admin: 09/05/17 09:27 Dose: 40 mg Senna (Senna Oral Solution -) 8.8 mg GT DAILY [facility] Last Admin: 09/05/17 09:24 Dose: 8.8 mg a/p sepsis-after spt change UTI-proteus -continue ceftriaxone day #4 antibiotics +blood culture- suspect contaminant- one of four bottles hx MDRO colonization chronic resp failure functional quadraplegia afib if he remains afebrile, and he is ready for d/c from cardiac/pulmonary standpoint, can switch to ceftin in am for another 5 days-500 bid
--- NOTE | 2017-09-05 11:21 | PN ---
Teaching Attending Note Name of Resident: Samira Snowden ATTENDING PHYSICIAN STATEMENT I saw and evaluated the patient. I reviewed the resident's note and discussed the case with the resident. I agree with the resident's findings and plan as documented. SUBJECTIVE: Pt seen and examined in the ICU. Vented, poorly responsive. Heart rates variable overnight but currently stable. OBJECTIVE: Vital Signs Period Temp Pulse Resp BP Sys/Bhardwaj Pulse Ox Last 24 Hr 98.6 F-99.7 F 65-130 14-20 102-116/71-104 100-100 Intake & Output 09/02/17 09/03/17 09/04/17 09/05/17 23:59 23:59 23:59 23:59 Intake Total 2270 1580 300 900 Output Total 1700 1951 1200 300 Balance 570 -371 -900 600 Weight 91.036 kg 85.638 kg Gen: vented, awake Heart: irregular Lung: decreased breath sounds at the bases Abd: soft, nontender Ext: no edema CBC, BMP 09/05/17 05:30 09/05/17 05:30 Active Medications Acetaminophen (Tylenol Oral Solution -) 650 mg GT Q4H PRN PRN Reason: FEVER Last Admin: 09/05/17 06:00 Dose: 650 mg Albuterol Sulfate (Ventolin Hfa Inhaler -) 2 puff IH Q6H PRN PRN Reason: SHORTNESS OF BREATH Amiodarone HCl (Cordarone -) 200 mg GT BID [facility] Last Admin: 09/05/17 09:25 Dose: 200 mg Apixaban (Eliquis -) 5 mg PO BID [facility] Last Admin: 09/05/17 09:25 Dose: 5 mg Digoxin (Lanoxin -) 0.25 mg PEG DAILY [facility] Last Admin: 09/05/17 09:26 Dose: 0.25 mg Furosemide (Lasix Injection -) 20 mg IVPUSH DAILY [facility] Last Admin: 09/05/17 09:24 Dose: 20 mg Ceftriaxone Sodium 2 gm/ (Dextrose) 100 mls @ 200 mls/hr IVPB DAILY [facility]; Protocol Last Admin: 09/05/17 09:27 Dose: 200 mls/hr Levothyroxine Sodium (Synthroid -) 25 mcg GT DAILY@0700 [facility] Last Admin: 09/05/17 06:00 Dose: 25 mcg Metoprolol Tartrate (Lopressor -) 50 mg GT TID [facility] Last Admin: 09/05/17 06:00 Dose: 50 mg Pantoprazole Sodium (Protonix Packets For Oral Suspension -) 40 mg PEG DAILY [facility] Last Admin: 09/05/17 09:27 Dose: 40 mg Senna (Senna Oral Solution -) 8.8 mg GT DAILY [facility] Last Admin: 09/05/17 09:24 Dose: 8.8 mg ASSESSMENT AND PLAN: Chronic Respiratory Failure Atrial Fibrillation with RVR Pneumonia Anoxic Encephalopathy Hypothyroidism Functional Quadriplegia - rate control - continue anticoagulation - continue antibiotics - continue volume assist control - poor candidate for weaning at this time - enteral feeds - DVT/GI prophylaxis - can monitor on vent floor
--- NOTE | 2017-09-05 11:31 | PN ---
Physical Exam: SUBJECTIVE: Vented patient. OBJECTIVE: Vital Signs Period Temp Pulse Resp BP Sys/Bhardwaj Pulse Ox Last 24 Hr 98.6 F-99.7 F 65-130 14-20 102-116/71-104 100-100 CV: S1/S2 Respiratory: decreased bibasilar breath sounds Abdomen: soft, (+) bowel sounds Extremity: 2+ DP pulses, B/L LE edema Laboratory Results - last 24 hr 09/05/17 09/05/17 05:30 05:30 WBC 6.3 RBC 3.35 L Hgb 11.2 L Hct 32.9 L MCV 98.2 H MCH 33.3 MCHC 33.9 RDW 14.6 Plt Count 192 MPV 10.2 Neutrophils % 59.1 Lymphocytes % 25.0 D Monocytes % 7.9 Eosinophils % 7.3 H Basophils % 0.7 Nucleated RBC % 0 Sodium 142 Potassium 3.6 Chloride 107 Carbon Dioxide 28 Anion Gap 7 L BUN 13 D Creatinine 0.6 L Creat Clearance w eGFR > 60 Random Glucose 122 H Calcium 8.6 Total Bilirubin 0.3 D AST 14 L ALT 16 D Alkaline Phosphatase 58 Total Protein 6.1 L Albumin 2.4 L Digoxin 1.2430 Active Medications Generic Name Dose Route Start Last Admin Trade Name Freq PRN Reason Stop Dose Admin Acetaminophen 650 mg 09/01/17 19:07 09/05/17 06:00 Tylenol Oral Solution - GT 650 mg Q4H PRN Administration FEVER Albuterol Sulfate 2 puff 09/01/17 19:07 Ventolin Hfa Inhaler - IH Q6H PRN SHORTNESS OF BREATH Amiodarone HCl 200 mg 09/01/17 22:00 09/05/17 09:25 Cordarone - GT 200 mg BID [facility] Administration Apixaban 5 mg 09/01/17 22:00 09/05/17 09:25 Eliquis - PO 5 mg BID [facility] Administration Digoxin 0.25 mg 09/03/17 10:00 09/05/17 09:26 Lanoxin - PEG 0.25 mg DAILY [facility] Administration Furosemide 20 mg 09/02/17 10:00 09/05/17 09:24 Lasix Injection - IVPUSH 20 mg DAILY [facility] Administration Ceftriaxone Sodium 2 gm/ 100 mls @ 200 mls/hr 09/03/17 10:00 09/05/17 09:27 Dextrose IVPB 200 mls/hr DAILY [facility] Administration Protocol Levothyroxine Sodium 25 mcg 09/02/17 07:00 09/05/17 06:00 Synthroid - GT 25 mcg DAILY@0700 [facility] Administration Metoprolol Tartrate 50 mg 09/04/17 14:00 09/05/17 06:00 Lopressor - GT 50 mg TID [facility] Administration Pantoprazole Sodium 40 mg 09/02/17 10:00 09/05/17 09:27 Protonix Packets For Oral Suspension - PEG 40 mg DAILY [facility] Administration Senna 8.8 mg 09/02/17 10:00 09/05/17 09:24 Senna Oral Solution - GT 8.8 mg DAILY [facility] Administration ASSESSMENT/PLAN: 61 year old male with recently (07/2017) diagnosed AFib, Chronic tracheostomy, Ventilator dependent was sent to our facility on 08/30 for Afib w/RVR. S/p Cardizem drip (now d/c ed) currently on PO meds via GT tube #1 AFIB w/RVR - HR 100's-110's overnight - IFEOMA showed normal LV function and size - Continue Lopressor, Eliquis #2 Chronic Respiratory Failure - Vented, volume assist control - Poor candidate for weaning #3 UTI - Urine culture (+) for Proteus - Continue Ceftriaxone (Day 4) - Will switch to Ceftin if patient d/c as per ID - ID following appreciate recs #4 Hypothyroidism - TSH 5.94 this admission - Continue Synthroid FEN -Continue to monitor - Tube feeds PROPHYLAXIS - SCDs - Protonix DISPOSITION: Patient stable for transfer to inpatient medicine floor Visit type - Emergency Visit Emergency Visit: No - New Patient This patient is new to me today: Yes Date on this admission: 09/05/17 - Critical Care Critical Care patient: No
--- NOTE | 2017-09-05 17:31 | PN ---
Progress Note (short form) - Note Progress Note: pt seen/ examined in icu comfortable overall condition same hr better controlled afebrile Vital Signs Temp 98.6 F 09/05/17 06:00 Pulse 86 09/05/17 16:00 Resp 18 09/05/17 16:00 BP 139/62 09/05/17 16:00 Pulse Ox 100 09/05/17 07:35 Intake & Output 09/04/17 09/05/17 09/05/17 23:59 11:59 23:59 Intake Total 300 900 Output Total 750 300 500 Balance -450 600 -500 Weight 188 lb 12.8 oz Intake: IVPB 300 Tube Feeding 600 Tube Irrigant 300 Output: Urine 750 300 500 Supra Pubic Tube 750 300 500 Other: Voiding Method Indwelling Catheter Indwelling Catheter Bowel Movement No No # Bowel Movements 1 Weight Measurement Method Built in [facility] Active Medications Acetaminophen (Tylenol Oral Solution -) 650 mg GT Q4H PRN PRN Reason: FEVER Last Admin: 09/05/17 06:00 Dose: 650 mg Albuterol Sulfate (Ventolin Hfa Inhaler -) 2 puff IH Q6H PRN PRN Reason: SHORTNESS OF BREATH Amiodarone HCl (Cordarone -) 200 mg GT BID [facility] Last Admin: 09/05/17 09:25 Dose: 200 mg Apixaban (Eliquis -) 5 mg PO BID [facility] Last Admin: 09/05/17 09:25 Dose: 5 mg Digoxin (Lanoxin -) 0.25 mg PEG DAILY [facility] Last Admin: 09/05/17 09:26 Dose: 0.25 mg Furosemide (Lasix Injection -) 20 mg IVPUSH DAILY [facility] Last Admin: 09/05/17 09:24 Dose: 20 mg Ceftriaxone Sodium 2 gm/ (Dextrose) 100 mls @ 200 mls/hr IVPB DAILY [facility]; Protocol Last Admin: 09/05/17 09:27 Dose: 200 mls/hr Metoprolol Tartrate (Lopressor -) 50 mg GT TID [facility] Last Admin: 09/05/17 14:11 Dose: 50 mg Pantoprazole Sodium (Protonix Packets For Oral Suspension -) 40 mg PEG DAILY [facility] Last Admin: 09/05/17 09:27 Dose: 40 mg Senna (Senna Oral Solution -) 8.8 mg GT DAILY [facility] Last Admin: 09/05/17 09:24 Dose: 8.8 mg CBC, BMP 09/05/17 05:30 09/05/17 05:30 Microbiology 09/01/17 11:50 Blood Culture - Preliminary Blood - Peripheral Venous NO GROWTH OBTAINED AFTER 96 HOURS, INCUBATION TO CONTINUE FOR 1 DAYS. 09/01/17 11:20 Blood Culture - Preliminary Blood - Peripheral Venous NO GROWTH OBTAINED AFTER 96 HOURS, INCUBATION TO CONTINUE FOR 1 DAYS. Physical Exam Gen: non verbal . awake on vent . s/p trach - vent PULM: scattered rhonchi, CV: S1, S2 Irregular ABD: PEG, supra public catheter . EXT: venous stasis changes, 2+ pitting depend edema, stage IV 2x2 sacral . A/P Sepsis Rapid afib Chronic Respiratory Failure/vent dependent Functional Quadriplegia Anemia -cardiomyopathy - uti +ve cultures-- likely contaminant - Abx per i/d - i/d on case - cardiology on case - meds reviewed - continue present care - sacral decubitus care - overall condition gaurded - monitor lytes - dig lab ok -- T4 free high -- will d/c synthroid - f/u TSH Level Next week Pt on Amiodarone --Discussed with icu resident - will follow Problem List - Problems (1) Atrial fibrillation Code(s): I48.91 - UNSPECIFIED ATRIAL FIBRILLATION Qualifiers: Atrial fibrillation type: unspecified Qualified Code(s): I48.91 - Unspecified atrial fibrillation (2) Seizure Code(s): R56.9 - UNSPECIFIED CONVULSIONS (3) Anemia Code(s): D64.9 - ANEMIA, UNSPECIFIED (4) Quadriplegia, functional Code(s): R53.2 - FUNCTIONAL QUADRIPLEGIA (5) Rapid atrial fibrillation Code(s): I48.91 - UNSPECIFIED ATRIAL FIBRILLATION (6) UTI (urinary tract infection) Code(s): N39.0 - URINARY TRACT INFECTION, SITE NOT SPECIFIED Qualifiers: Urinary tract infection type: site unspecified Hematuria presence: without hematuria Qualified Code(s): N39.0 - Urinary tract infection, site not specified
[2017-09-06] MEDS: METOPROLOL TARTRATE 50 MG TABLET (FP) GT SCH ×3 (05:45→21:21)
[2017-09-06 06:31] LABS: BASO % 0.6 % (0-2.0); EOS % 8.6 % (0-4.5); HEMATOCRIT 35.1 % (35.4-49); HEMOGLOBIN 11.8 GM/dL (11.7-16.9); LYMPH % 31.5 % (8-40); MCH 33.1 pg (25.7-33.7); MCHC 33.5 g/dl (32.0-35.9); MEAN CELL VOLUME 98.7 fl (80-96); MEAN PLT VOLUME 9.7 fl (7.5-11.1); MONO % 5.9 % (3.8-10.2); NEUT % 53.4 % (42.8-82.8); PLATELET COUNT 189 K/MM3 (134-434); RBC 3.56 M/mm3 (4.00-5.60); WHITE BLOOD COUNT 6.8 K/mm3 (4.0-10.0)
--- NOTE | 2017-09-06 06:48 | PN ---
Progress Note, Physician Chief Complaint: ID Day 5 antibiotics Afebrile - Current Medication List Current Medications: Active Medications Acetaminophen (Tylenol Oral Solution -) 650 mg GT Q4H PRN PRN Reason: FEVER Last Admin: 09/05/17 18:26 Dose: 650 mg Albuterol Sulfate (Ventolin Hfa Inhaler -) 2 puff IH Q6H PRN PRN Reason: SHORTNESS OF BREATH Amiodarone HCl (Cordarone -) 200 mg GT BID [facility] Last Admin: 09/05/17 21:50 Dose: 200 mg Apixaban (Eliquis -) 5 mg PO BID [facility] Last Admin: 09/05/17 21:50 Dose: 5 mg Digoxin (Lanoxin -) 0.25 mg PEG DAILY [facility] Last Admin: 09/05/17 09:26 Dose: 0.25 mg Furosemide (Lasix Injection -) 20 mg IVPUSH DAILY [facility] Last Admin: 09/05/17 09:24 Dose: 20 mg Ceftriaxone Sodium 2 gm/ (Dextrose) 100 mls @ 200 mls/hr IVPB DAILY [facility]; Protocol Last Admin: 09/05/17 09:27 Dose: 200 mls/hr Metoprolol Tartrate (Lopressor -) 50 mg GT TID [facility] Last Admin: 09/06/17 05:45 Dose: 50 mg Pantoprazole Sodium (Protonix Packets For Oral Suspension -) 40 mg PEG DAILY [facility] Last Admin: 09/05/17 09:27 Dose: 40 mg Senna (Senna Oral Solution -) 8.8 mg GT DAILY [facility] Last Admin: 09/05/17 09:24 Dose: 8.8 mg - Objective Vital Signs: Vital Signs Temperature 98.2 F 09/06/17 02:00 Pulse Rate 88 09/06/17 04:08 Respiratory Rate 20 09/06/17 06:02 Blood Pressure 99/83 09/06/17 04:08 O2 Sat by Pulse Oximetry (%) 98 09/05/17 10:20 Neck: Yes: Other (Trach) Cardiovascular: Yes: Pulse Irregular, S1, S2 Respiratory: Yes: WNL, Regular, CTA Bilaterally Gastrointestinal: Yes: WNL, Normal Bowel Sounds. No: Tenderness Edema: No Labs: CBC, BMP 09/06/17 06:00 INR, PTT INR 1.35 (0.82-1.09) H 08/30/17 12:20 Assessment/Plan Microbiology 08/31/17 00:01 Sputum - Endotrachea Suction/Ventilator Gram Stain - Final 08/31/17 00:01 Sputum - Endotrachea Suction/Ventilator Sputum Culture - Final Acinetobacter Baumannii/Haemol Diphtheroid/Corynebacterium 08/30/17 16:50 Urine - Urine - Catheterized Urine Culture - Final Proteus Mirabilis 08/30/17 12:20 Blood - Peripheral Venous Blood Culture - Final Staphylococcus Coagulase Neg 09/01/17 11:50 Blood - Peripheral Venous Blood Culture - Preliminary NO GROWTH OBTAINED AFTER 96 HOURS, INCUBATION TO CONTINUE FOR 1 DAYS. 09/01/17 11:20 Blood - Peripheral Venous Blood Culture - Preliminary NO GROWTH OBTAINED AFTER 96 HOURS, INCUBATION TO CONTINUE FOR 1 DAYS. Laboratory Tests 09/05/17 09/06/17 05:30 06:00 WBC 6.8 Plt Count 189 BUN 13 D Creatinine 0.6 L Assessment Vent dependency Proteus UTI MDRO Atrial fibrillation Plan Can stop IV Ceftriaxone and switch to oral Ceftin 500 bid for another 7 days Veena ROY
[2017-09-06 07:05] LABS: ALBUMIN 2.6 g/dl (3.4-5.0); ANION GAP 7 (8-16); BILIRUBIN,TOTAL 0.3 mg/dL (0.2-1.0); BLOOD UREA NITROGEN 12 mg/dL (7-18); CHLORIDE 107 mmol/L (98-107); CO2 30 mmol/L (21-32); CREATININE 0.6 mg/dL (0.7-1.3); GLUCOSE,RANDOM 108 mg/dL (74-106); SGOT/AST 19 U/L (15-37); SGPT/ALT 17 U/L (12-78); SODIUM 144 mmol/L (136-145); TOT PROT 6.6 g/dl (6.4-8.2)
[2017-09-06 07:06] LABS: ALK PHOS 59 U/L (45-117)
--- NOTE | 2017-09-06 09:06 | PN ---
Progress Note, Physician Chief Complaint: no events Heart rate better controlled - Current Medication List Current Medications: Active Medications Acetaminophen (Tylenol Oral Solution -) 650 mg GT Q4H PRN PRN Reason: FEVER Last Admin: 09/05/17 18:26 Dose: 650 mg Albuterol Sulfate (Ventolin Hfa Inhaler -) 2 puff IH Q6H PRN PRN Reason: SHORTNESS OF BREATH Amiodarone HCl (Cordarone -) 200 mg GT BID [facility] Last Admin: 09/05/17 21:50 Dose: 200 mg Apixaban (Eliquis -) 5 mg PO BID [facility] Last Admin: 09/05/17 21:50 Dose: 5 mg Cefuroxime Axetil (Ceftin Oral Suspension -) 500 mg PO BID [facility] Digoxin (Lanoxin -) 0.25 mg PEG DAILY [facility] Last Admin: 09/05/17 09:26 Dose: 0.25 mg Furosemide (Lasix Injection -) 20 mg IVPUSH DAILY [facility] Last Admin: 09/05/17 09:24 Dose: 20 mg Metoprolol Tartrate (Lopressor -) 50 mg GT TID [facility] Last Admin: 09/06/17 05:45 Dose: 50 mg Pantoprazole Sodium (Protonix Packets For Oral Suspension -) 40 mg PEG DAILY [facility] Last Admin: 09/05/17 09:27 Dose: 40 mg Senna (Senna Oral Solution -) 8.8 mg GT DAILY [facility] Last Admin: 09/05/17 09:24 Dose: 8.8 mg - Objective Vital Signs: Vital Signs Temperature 98.2 F 09/06/17 02:00 Pulse Rate 87 09/06/17 08:10 Respiratory Rate 20 09/06/17 08:10 Blood Pressure 99/83 09/06/17 04:08 O2 Sat by Pulse Oximetry (%) 98 09/06/17 08:10 Constitutional: Yes: No Distress Cardiovascular: Yes: Regular Rate and Rhythm Respiratory: Yes: Diminished, Mechanically Ventilated Gastrointestinal: Yes: Normal Bowel Sounds, Soft, Other (GT). No: Tenderness Edema: No Labs: CBC, BMP 09/06/17 06:00 09/06/17 06:00 INR, PTT INR 1.35 (0.82-1.09) H 08/30/17 12:20 Problem List - Problems (1) Atrial fibrillation Code(s): I48.91 - UNSPECIFIED ATRIAL FIBRILLATION Qualifiers: Atrial fibrillation type: unspecified Qualified Code(s): I48.91 - Unspecified atrial fibrillation (2) Mitral valve prolapse Code(s): I34.1 - NONRHEUMATIC MITRAL (VALVE) PROLAPSE (3) Seizure Code(s): R56.9 - UNSPECIFIED CONVULSIONS (4) Quadriplegia, functional Code(s): R53.2 - FUNCTIONAL QUADRIPLEGIA (5) Sepsis Code(s): A41.9 - SEPSIS, UNSPECIFIED ORGANISM Qualifiers: Sepsis type: sepsis due to unspecified organism Qualified Code(s): A41.9 - Sepsis, unspecified organism Assessment/Plan PLAN Sepsis Rapid afib Chronic Respiratory Failure/vent dependent Functional Quadriplegia Anemia -cardiomyopathy - uti +ve cultures-- likely contaminant - Abx per i/d- dc Ceftriaxone, now on GT Ceftin - rate better controlled on Amiodarone - meds reviewed - continue present care - overall condition gaurded - monitor lytes - dig lab ok -- T4 free high -- d/c synthroid - f/u TSH Level Next week Pt on Amiodarone
[2017-09-06] MEDS ORDERED: PT OWN MED DRAWER 7, Y5N ONE (09:21)
[2017-09-06] MEDS: FUROSEMIDE 40 MG/4 ML INJECTABLE VIAL IVPUSH SCH (10:40)
[2017-09-06] MEDS: APIXABAN 5 MG TABLET PO SCH ×2 (10:41→21:21)
[2017-09-06] MEDS: DIGOXIN 0.25 MG TABLET (FP) PEG SCH (10:41)
[2017-09-06] MEDS: AMIODARONE HCL 200 MG TABLET (FP) GT SCH ×2 (10:41→21:21)
[2017-09-06] MEDS: PANTOPRAZOLE SOD 40 MG SUSPENSION PACKET PEG SCH (10:42)
[2017-09-06] MEDS: CEFUROXIME AXETIL 250 MG/5 ML BOTTLE PO SCH ×2 (10:42→21:20)
[2017-09-06] MEDS: SENNOSIDES 8.8 MG/5 ML BULK BOTTLE GT SCH (10:43)
--- NOTE | 2017-09-06 12:08 | PN ---
Teaching Attending Note Name of Resident: Shell Mora ATTENDING PHYSICIAN STATEMENT I saw and evaluated the patient. I reviewed the resident's note and discussed the case with the resident. I agree with the resident's findings and plan as documented. SUBJECTIVE: Pt seen and examined in the ICU. Remains vented, poorly responsive. No overnight events. OBJECTIVE: Vital Signs Period Temp Pulse Resp BP Sys/Bhardwaj Pulse Ox Last 24 Hr 98.2 F-99.2 F 64-101 14-21 99-139/46-90 98-98 Intake & Output 09/03/17 09/04/17 09/05/17 09/06/17 23:59 23:59 23:59 23:59 Intake Total 1580 1200 2050 600 Output Total 1951 1200 2250 200 Balance -371 0 -200 400 Weight 85.638 kg 86.092 kg Gen: vented, poorly responsive Heart: RRR Lung: decreased breath sounds at the bases Abd: soft, nontender Ext: no edema CBC, BMP 09/06/17 06:00 09/06/17 06:00 Active Medications Acetaminophen (Tylenol Oral Solution -) 650 mg GT Q4H PRN PRN Reason: FEVER Last Admin: 09/05/17 18:26 Dose: 650 mg Albuterol Sulfate (Ventolin Hfa Inhaler -) 2 puff IH Q6H PRN PRN Reason: SHORTNESS OF BREATH Amiodarone HCl (Cordarone -) 200 mg GT BID [facility] Last Admin: 09/06/17 10:41 Dose: 200 mg Apixaban (Eliquis -) 5 mg PO BID [facility] Last Admin: 09/06/17 10:41 Dose: 5 mg Cefuroxime Axetil (Ceftin Oral Suspension -) 500 mg PO BID [facility] Last Admin: 09/06/17 10:42 Dose: 500 mg Digoxin (Lanoxin -) 0.25 mg PEG DAILY [facility] Last Admin: 09/06/17 10:41 Dose: 0.25 mg Furosemide (Lasix Injection -) 20 mg IVPUSH DAILY [facility] Last Admin: 09/06/17 10:40 Dose: 20 mg Metoprolol Tartrate (Lopressor -) 50 mg GT TID [facility] Last Admin: 09/06/17 05:45 Dose: 50 mg Pantoprazole Sodium (Protonix Packets For Oral Suspension -) 40 mg PEG DAILY [facility] Last Admin: 09/06/17 10:42 Dose: 40 mg Senna (Senna Oral Solution -) 8.8 mg GT DAILY [facility] Last Admin: 09/06/17 10:43 Dose: 8.8 mg ASSESSMENT AND PLAN: Chronic Respiratory Failure Atrial Fibrillation with RVR Pneumonia Anoxic Encephalopathy Hypothyroidism Functional Quadriplegia - rate control - continue anticoagulation - continue antibiotics - continue volume assist control - poor candidate for weaning at this time - enteral feeds - DVT/GI prophylaxis - can monitor on vent floor
--- NOTE | 2017-09-06 12:55 | PN ---
Progress Note, Physician History of Present Illness: Remains in vent, poorly responsive, rate-controlled afib persists. - Current Medication List Current Medications: Active Medications Acetaminophen (Tylenol Oral Solution -) 650 mg GT Q4H PRN PRN Reason: FEVER Last Admin: 09/05/17 18:26 Dose: 650 mg Albuterol Sulfate (Ventolin Hfa Inhaler -) 2 puff IH Q6H PRN PRN Reason: SHORTNESS OF BREATH Amiodarone HCl (Cordarone -) 200 mg GT BID [facility] Last Admin: 09/06/17 10:41 Dose: 200 mg Apixaban (Eliquis -) 5 mg PO BID [facility] Last Admin: 09/06/17 10:41 Dose: 5 mg Cefuroxime Axetil (Ceftin Oral Suspension -) 500 mg PO BID [facility] Last Admin: 09/06/17 10:42 Dose: 500 mg Digoxin (Lanoxin -) 0.25 mg PEG DAILY [facility] Last Admin: 09/06/17 10:41 Dose: 0.25 mg Furosemide (Lasix Injection -) 20 mg IVPUSH DAILY [facility] Last Admin: 09/06/17 10:40 Dose: 20 mg Metoprolol Tartrate (Lopressor -) 50 mg GT TID [facility] Last Admin: 09/06/17 05:45 Dose: 50 mg Pantoprazole Sodium (Protonix Packets For Oral Suspension -) 40 mg PEG DAILY [facility] Last Admin: 09/06/17 10:42 Dose: 40 mg Senna (Senna Oral Solution -) 8.8 mg GT DAILY [facility] Last Admin: 09/06/17 10:43 Dose: 8.8 mg - Objective Vital Signs: Vital Signs Temperature 99.2 F 09/06/17 10:00 Pulse Rate 97 H 09/06/17 10:41 Respiratory Rate 20 09/06/17 10:58 Blood Pressure 114/70 09/06/17 10:00 O2 Sat by Pulse Oximetry (%) 98 09/06/17 08:49 Cardiovascular: Yes: Pulse Irregular Respiratory: Yes: Mechanically Ventilated, Rhonchi Gastrointestinal: Yes: Normal Bowel Sounds, Soft Edema: No Labs: CBC, BMP 09/06/17 06:00 09/06/17 06:00 INR, PTT INR 1.35 (0.82-1.09) H 08/30/17 12:20 - ....Imaging Chest X-ray: Report Reviewed (Left lung base infiltrate and small effusion) Problem List - Problems (1) Atrial fibrillation Code(s): I48.91 - UNSPECIFIED ATRIAL FIBRILLATION Qualifiers: Atrial fibrillation type: persistent Qualified Code(s): I48.1 - Persistent atrial fibrillation (2) Chronic respiratory failure Code(s): J96.10 - CHRONIC RESPIRATORY FAILURE, UNSP W HYPOXIA OR HYPERCAPNIA Qualifiers: Respiratory failure complication: unspecified whether with hypoxia or hypercapnia Qualified Code(s): J96.10 - Chronic respiratory failure, unspecified whether with hypoxia or hypercapnia (3) Quadriplegia, functional Code(s): R53.2 - FUNCTIONAL QUADRIPLEGIA (4) Tracheostomy tube present Code(s): Z93.0 - TRACHEOSTOMY STATUS Assessment/Plan Echocardiography dated 08/01/17 revealed normal LV size and function with trace to mild MR 1. Persistent atrial fibrillation with periods of rapid ventricular response ( improved) [id number] score of 0-1 on DOAC's/Eliquis 2. Chronic respiratory failure ventilator dependent/tracheostomy, acute exacerbation pneumonia and probable 3. Congestive heart failure related to diastolic LV dysfunction, resolving 4. Anoxic encephalopathy/history of anoxic brain injury post 5. History of cardiac arrest 6. History of substance abuse 7. Anemia 8. Hypothyroidism 9. Functional Quadriplegia PLAN: 1. Continue Eliquis 5 bid with close monitoring of CBC, maintain Hg equal or > 8.0 2. Continue Lopressor 50 tid, hemodynamics permitting 3. Continue Amiodarone at 200 mg twice daily for total of 1 week (September 08) and then 200 mg daily 4. Continue Digoxin 0.25 qd with caution and close monitoring of level 5. IV diuretics with close monitoring of diuretic response, renal function and electrolytes 6. May consider the addition of ARBS, hemodynamics permitting 7. Antibiotic course as per ID team, enteral feeds
--- NOTE | 2017-09-06 16:39 | PN ---
Physical Exam: SUBJECTIVE: Patient seen and examined ; chronically on [facility] ventilation; afebrile; still in afib; rate controlled OBJECTIVE: Vital Signs Period Temp Pulse Resp BP Sys/Bhardwaj Pulse Ox Last 24 Hr 98.2 F-99.2 F 64-101 12-20 94-114/46-90 98-98 GENERAL: The patient is lethargic; not responsive to verbal/tactle stimuli; baseline mental status poor form anoxic brain injury LUNGS: scattered rhonchi HEART:a fib; rate controlled ABDOMEN: Soft, nontender, nondistended, normoactive bowel sounds, no guarding, no rebound, no hepatosplenomegaly, no masses. EXTREMITIES: 2+ pulses, warm, well-perfused, no edema. Laboratory Results - last 24 hr 09/06/17 09/06/17 06:00 06:00 WBC 6.8 RBC 3.56 L Hgb 11.8 Hct 35.1 L MCV 98.7 H MCH 33.1 MCHC 33.5 RDW 15.0 Plt Count 189 MPV 9.7 Neutrophils % 53.4 Lymphocytes % 31.5 D Monocytes % 5.9 Eosinophils % 8.6 H Basophils % 0.6 Nucleated RBC % 0 Sodium 144 Potassium 4.0 Chloride 107 Carbon Dioxide 30 Anion Gap 7 L BUN 12 Creatinine 0.6 L Creat Clearance w eGFR > 60 Random Glucose 108 H Calcium 9.0 Total Bilirubin 0.3 AST 19 D ALT 17 Alkaline Phosphatase 59 Total Protein 6.6 Albumin 2.6 L Active Medications Generic Name Dose Route Start Last Admin Trade Name Freq PRN Reason Stop Dose Admin Acetaminophen 650 mg 09/01/17 19:07 09/05/17 18:26 Tylenol Oral Solution - GT 650 mg Q4H PRN Administration FEVER Albuterol Sulfate 2 puff 09/01/17 19:07 Ventolin Hfa Inhaler - IH Q6H PRN SHORTNESS OF BREATH Amiodarone HCl 200 mg 09/01/17 22:00 09/06/17 10:41 Cordarone - GT 200 mg BID [facility] Administration Apixaban 5 mg 09/01/17 22:00 09/06/17 10:41 Eliquis - PO 5 mg BID [facility] Administration Cefuroxime Axetil 500 mg 09/06/17 10:00 09/06/17 10:42 Ceftin Oral Suspension - PO 500 mg BID [facility] Administration Digoxin 0.25 mg 09/03/17 10:00 09/06/17 10:41 Lanoxin - PEG 0.25 mg DAILY [facility] Administration Furosemide 20 mg 09/02/17 10:00 09/06/17 10:40 Lasix Injection - IVPUSH 20 mg DAILY [facility] Administration Metoprolol Tartrate 50 mg 09/04/17 14:00 09/06/17 15:00 Lopressor - GT 50 mg TID [facility] Administration Pantoprazole Sodium 40 mg 09/02/17 10:00 09/06/17 10:42 Protonix Packets For Oral Suspension - PEG 40 mg DAILY [facility] Administration Senna 8.8 mg 09/02/17 10:00 09/06/17 10:43 Senna Oral Solution - GT 8.8 mg DAILY [facility] Administration Microbiology 09/01/17 11:50 Blood - Peripheral Venous Blood Culture - Final NO GROWTH AFTER 5 DAYS INCUBATION 09/01/17 11:20 Blood - Peripheral Venous Blood Culture - Final NO GROWTH AFTER 5 DAYS INCUBATION 08/30/17 12:20 Blood - Peripheral Venous Blood Culture - Final NO GROWTH AFTER 5 DAYS INCUBATION 08/31/17 00:01 Sputum - Endotrachea Suction/Ventilator Gram Stain - Final 08/31/17 00:01 Sputum - Endotrachea Suction/Ventilator Sputum Culture - Final Acinetobacter Baumannii/Haemol Diphtheroid/Corynebacterium 08/30/17 12:20 Blood - Peripheral Venous Blood Culture - Final Staphylococcus Coagulase Neg 08/30/17 16:50 Urine - Urine - Catheterized Urine Culture - Final Proteus Mirabilis ASSESSMENT/PLAN: This is a 62 year old male, chronically ventilated from anoxic brain injury who presented septic and in a fib with RVR. Sepsis UTI Pneumonia Anoxic Encephalopathy Chronic respiratory failure Hypothyroidism Functional Quadriplegia -vent AC; MAP >65 -sepsis improved -cont IV antibiotics -on pressers -repeat cx negative -f/u cxr -enteral feeds -rate control; amio as per cardio -enteral feeds -dvt/gi ppl Stable to transfer to floors Visit type - Emergency Visit Emergency Visit: Yes ED Registration Date: 08/30/17 Care time: The patient presented to the Emergency Department on the above date and was hospitalized for further evaluation of their emergent condition. - New Patient This patient is new to me today: Yes Date on this admission: 09/06/17 - Critical Care Critical Care patient: Yes Total Critical Care Time (in minutes): 45 Critical Care Statement: The care of this patient involved high complexity decision making to prevent further life threatening deterioration of the patient 's condition and/or to evaluate & treat vital organ system(s) failure or risk of failure.
[2017-09-07] MEDS: METOPROLOL TARTRATE 50 MG TABLET (FP) GT SCH ×3 (05:49→22:52)
[2017-09-07 06:21] LABS: BASO % 0.8 % (0-2.0); EOS % 7.1 % (0-4.5); HEMATOCRIT 35.7 % (35.4-49); LYMPH % 22.8 % (8-40); MCH 32.8 pg (25.7-33.7); MCHC 33.5 g/dl (32.0-35.9); MEAN CELL VOLUME 97.9 fl (80-96); MEAN PLT VOLUME 9.7 fl (7.5-11.1); MONO % 5.1 % (3.8-10.2); NEUT % 64.2 % (42.8-82.8); PLATELET COUNT 188 K/MM3 (134-434); RBC 3.64 M/mm3 (4.00-5.60); RDW 14.5 % (11.9-15.9); WHITE BLOOD COUNT 6.9 K/mm3 (4.0-10.0)
[2017-09-07] MEDS ORDERED: ALBUTEROL SO4 18 GM HFA INHALER IH PRN (06:37)
[2017-09-07 06:51] LABS: ANION GAP 7 (8-16); BLOOD UREA NITROGEN 16 mg/dL (7-18); CALCIUM 8.6 mg/dL (8.5-10.1); CHLORIDE 105 mmol/L (98-107); CO2 30 mmol/L (21-32); CREATININE 0.6 mg/dL (0.7-1.3); GLUCOSE,RANDOM 135 mg/dL (74-106); MAGNESIUM 1.9 mg/dL (1.8-2.4); PHOSPHOROUS 3.6 mg/dL (2.5-4.9); POTASSIUM 3.4 mmol/L (3.5-5.1); SODIUM 142 mmol/L (136-145)
[2017-09-07] MEDS ORDERED: POTASSIUM CHLORIDE ORAL LIQUID 20 MEQ/15 ML GT ONE (09:45)
[2017-09-07] MEDS ORDERED: FUROSEMIDE 40 MG/4 ML INJECTABLE VIAL IVPUSH SCH (10:00)
[2017-09-07] MEDS: SENNOSIDES 8.8 MG/5 ML BULK BOTTLE GT SCH (10:20)
--- NOTE | 2017-09-07 10:26 | PN ---
Progress Note, Physician History of Present Illness: Remains in vent, poorly responsive, rate-controlled afib persists. - Current Medication List Current Medications: Active Medications Acetaminophen (Tylenol Oral Solution -) 650 mg GT Q4H PRN PRN Reason: FEVER Albuterol Sulfate (Ventolin Hfa Inhaler -) 2 puff IH Q6H PRN PRN Reason: SHORTNESS OF BREATH Amiodarone HCl (Cordarone -) 200 mg GT BID [facility] Apixaban (Eliquis -) 5 mg PO BID [facility] Cefuroxime Axetil (Ceftin Oral Suspension -) 500 mg PO BID [facility] Last Admin: 09/06/17 21:20 Dose: 500 mg Digoxin (Lanoxin -) 0.25 mg PEG DAILY [facility] Furosemide (Lasix Injection -) 20 mg IVPUSH DAILY [facility] Metoprolol Tartrate (Lopressor -) 50 mg GT TID [facility] Last Admin: 09/07/17 05:49 Dose: 50 mg Pantoprazole Sodium (Protonix Packets For Oral Suspension -) 40 mg PEG DAILY [facility] Senna (Senna Oral Solution -) 8.8 mg GT DAILY [facility] - Objective Vital Signs: Vital Signs Temperature 98.3 F 09/07/17 09:11 Pulse Rate 82 09/07/17 09:11 Respiratory Rate 24 09/07/17 09:11 Blood Pressure 148/65 09/07/17 09:11 O2 Sat by Pulse Oximetry (%) 100 09/07/17 06:00 Constitutional: Yes: No Distress, Calm Neck: Yes: Supple Cardiovascular: Yes: Pulse Irregular Respiratory: Yes: Mechanically Ventilated, Rhonchi Gastrointestinal: Yes: Normal Bowel Sounds, Soft Edema: Yes Edema: LLE: Trace, RLE: Trace Labs: CBC, BMP 09/07/17 05:28 09/07/17 05:28 INR, PTT INR 1.35 (0.82-1.09) H 08/30/17 12:20 Problem List - Problems (1) Atrial fibrillation Code(s): I48.91 - UNSPECIFIED ATRIAL FIBRILLATION Qualifiers: Atrial fibrillation type: persistent Qualified Code(s): I48.1 - Persistent atrial fibrillation (2) Chronic respiratory failure Code(s): J96.10 - CHRONIC RESPIRATORY FAILURE, UNSP W HYPOXIA OR HYPERCAPNIA Qualifiers: Respiratory failure complication: unspecified whether with hypoxia or hypercapnia Qualified Code(s): J96.10 - Chronic respiratory failure, unspecified whether with hypoxia or hypercapnia (3) Quadriplegia, functional Code(s): R53.2 - FUNCTIONAL QUADRIPLEGIA (4) Tracheostomy tube present Code(s): Z93.0 - TRACHEOSTOMY STATUS (5) Anoxic brain injury Code(s): G93.1 - ANOXIC BRAIN DAMAGE, NOT ELSEWHERE CLASSIFIED Assessment/Plan Echocardiography dated 08/01/17 revealed normal LV size and function with trace to mild MR 1. Persistent atrial fibrillation with periods of rapid ventricular response ( improved) [id number] score of 0-1 on DOAC's/Eliquis 2. Chronic respiratory failure ventilator dependent/tracheostomy, acute exacerbation pneumonia and probable 3. Congestive heart failure related to diastolic LV dysfunction, resolving 4. Anoxic encephalopathy/history of anoxic brain injury post 5. History of cardiac arrest 6. History of substance abuse 7. Anemia 8. Hypothyroidism 9. Functional Quadriplegia 10. UTI PLAN: 1. Continue Eliquis 5 bid with close monitoring of CBC, maintain Hg equal or > 8.0 2. Continue Lopressor 50 tid, hemodynamics permitting 3. Continue Amiodarone at 200 mg twice daily for total of 1 week (September 08) and then 200 mg daily 4. Continue Digoxin 0.25 qd with caution and close monitoring of level 5. Change to oral diuretics with close monitoring of diuretic response, renal function and electrolytes 6. May consider the addition of ARBS, hemodynamics permitting 7. Antibiotic course as per ID team, enteral feeds
--- NOTE | 2017-09-07 10:50 | PN ---
Progress Note (short form) - Note Progress Note: Vented on AC Mode of vent, 35% FiO2. Afebrile. CXR: Rotated: LLL effusion/atelectasis Intake & Output 09/04/17 09/05/17 09/06/17 09/07/17 23:59 23:59 23:59 23:59 Intake Total 1200 2050 1360 1020 Output Total 1200 2250 2300 450 Balance 0 -200 -940 570 Weight 188 lb 12.8 oz 189 lb 12.8 oz 188 lb 6.4 oz Last Vital Signs Temp Pulse Resp BP Pulse Ox 98.3 F 82 17 148/65 100 09/07/17 09:11 09/07/17 09:11 09/07/17 10:28 09/07/17 09:11 09/07/17 06:00 Active Medications Acetaminophen (Tylenol Oral Solution -) 650 mg GT Q4H PRN PRN Reason: FEVER Albuterol Sulfate (Ventolin Hfa Inhaler -) 2 puff IH Q6H PRN PRN Reason: SHORTNESS OF BREATH Amiodarone HCl (Cordarone -) 200 mg GT BID [facility] Apixaban (Eliquis -) 5 mg PO BID [facility] Cefuroxime Axetil (Ceftin Oral Suspension -) 500 mg PO BID [facility] Last Admin: 09/06/17 21:20 Dose: 500 mg Digoxin (Lanoxin -) 0.25 mg PEG DAILY [facility] Furosemide (Lasix -) 20 mg PEG DAILY [facility] Metoprolol Tartrate (Lopressor -) 50 mg GT TID [facility] Last Admin: 09/07/17 05:49 Dose: 50 mg Pantoprazole Sodium (Protonix Packets For Oral Suspension -) 40 mg PEG DAILY [facility] Senna (Senna Oral Solution -) 8.8 mg GT DAILY [facility] Gen: vented, poorly responsive Heart: RRR Lung: left basilar rhonchi Abd: soft, nontender Ext: no edema Laboratory Results - last 24 hr 09/07/17 09/07/17 05:28 05:28 WBC 6.9 RBC 3.64 L Hgb 12.0 Hct 35.7 MCV 97.9 H MCH 32.8 MCHC 33.5 RDW 14.5 Plt Count 188 MPV 9.7 Neutrophils % 64.2 D Lymphocytes % 22.8 D Monocytes % 5.1 Eosinophils % 7.1 H Basophils % 0.8 Nucleated RBC % 0 Sodium 142 Potassium 3.4 L Chloride 105 Carbon Dioxide 30 Anion Gap 7 L BUN 16 D Creatinine 0.6 L Random Glucose 135 H D Calcium 8.6 Phosphorus 3.6 Magnesium 1.9 ASSESSMENT AND PLAN: Chronic Respiratory Failure Atrial Fibrillation with RVR Pneumonia Anoxic Encephalopathy Hypothyroidism Functional Quadriplegia - ABX per ID: Switch to oral - AC - continue volume assist control - poor candidate for weaning at this time - enteral feeds - DVT/GI prophylaxis - No Pulmonary contraindication for D/C - Repeat CXR in a few weeks or based on clinical condition Dr Sweeney
[2017-09-07] MEDS: AMIODARONE HCL 200 MG TABLET (FP) GT SCH ×2 (10:58→22:52)
[2017-09-07] MEDS: PANTOPRAZOLE SOD 40 MG SUSPENSION PACKET PEG SCH (10:58)
[2017-09-07] MEDS: FUROSEMIDE 40 MG/4 ML INJECTABLE VIAL IVPUSH SCH (10:58)
--- NOTE | 2017-09-07 11:29 | DS ---
Physical Examination Vital Signs: Vital Signs Temperature 98.3 F 09/07/17 09:11 Pulse Rate 82 09/07/17 09:11 Respiratory Rate 17 09/07/17 10:28 Blood Pressure 148/65 09/07/17 09:11 O2 Sat by Pulse Oximetry (%) 100 09/07/17 06:00 Constitutional: Yes: No Distress Cardiovascular: Yes: Pulse Irregular Respiratory: Yes: Diminished, Mechanically Ventilated Gastrointestinal: Yes: Normal Bowel Sounds, Soft, Other (GT). No: Tenderness Edema: No Labs: CBC, BMP 09/07/17 05:28 09/07/17 05:28 Discharge Summary Reason For Visit: RAPID ATRIAL FIBRILLATION Current Active Problems Anoxic brain injury (Acute) Atrial fibrillation (Acute) Hospital Course: Admitted for rapid Afib Was initially sent from [facility] for dislodged suprapubic catheter Found to have proteus UTI seen by Cardiology, ID He was in icu for management of heart rate Now rate controlled on Amiodarone, beta blockers and Digoxin Pt now on Ceftin Synthroid discontinued-Free T4 very high- will need to repeat labs in 1 week wound care seen Stable for dc to NH Condition: Good - Instructions Diet, Activity, Other Instructions: Synthroid discontinued as he is now hyperthyroid-- please check TSH, Free T 4 in 1 week. Ceftin to be given 6 more days Disposition: CUSTODIAL FACILITY - Home Medications Comprehensive Discharge Medication List: Ambulatory Orders Acetaminophen [Tylenol .Extra-Strength -] 500 mg GT Q6H PRN 07/31/17 Albuterol Sulfate Inhaler - [Ventolin HFA Inhaler -] 2 inh IH Q6H 07/31/17 Hypromellose 0.5% Opth Soln [Artificial Tears] 1 drop QID 07/31/17 Sennosides [Senna] 8.8 mg GT DAILY 07/31/17 Apixaban [Eliquis -] 5 mg PO BID #90 tablet 08/10/17 Metoprolol Tartrate [Lopressor -] 50 mg GT BID #60 tablet 08/10/17 Pantoprazole Suspension [Protonix Packets For Oral Suspension -] 40 mg GT DAILY #20 packet 08/10/17 Amiodarone HCl [Cordarone -] 200 mg GT BID #60 tablet 09/07/17 Cefuroxime Axetil Suspension [Ceftin Suspension -] 500 mg PO BID #14 ml Digoxin [Lanoxin -] 0.25 mg PEG DAILY #30 tablet 09/07/17 Furosemide [Lasix -] 20 mg PEG DAILY #30 tablet 09/07/17
[2017-09-07] MEDS: DIGOXIN 0.25 MG TABLET (FP) PEG SCH (13:25)
[2017-09-07] MEDS: CEFUROXIME AXETIL 250 MG/5 ML BOTTLE PO SCH ×2 (13:26→22:53)
[2017-09-07] MEDS: APIXABAN 5 MG TABLET PO SCH ×2 (13:27→22:52)
[2017-09-07] MEDS: ACETAMINOPHEN 650 MG/20.3 ML ORAL SOLUTION (CUPS) GT PRN (18:45)
[2017-09-08] MEDS: METOPROLOL TARTRATE 50 MG TABLET (FP) GT SCH ×3 (05:31→21:12)
[2017-09-08] MEDS: FUROSEMIDE 20 MG TABLET (FP) PEG SCH (12:07)
[2017-09-08] MEDS: AMIODARONE HCL 200 MG TABLET (FP) GT SCH ×2 (12:07→21:12)
[2017-09-08] MEDS: PANTOPRAZOLE SOD 40 MG SUSPENSION PACKET PEG SCH (12:08)
[2017-09-08] MEDS: SENNOSIDES 8.8 MG/5 ML BULK BOTTLE GT SCH (12:08)
[2017-09-08] MEDS: APIXABAN 5 MG TABLET PO SCH ×2 (12:09→21:12)
[2017-09-08] MEDS: DIGOXIN 0.25 MG TABLET (FP) PEG SCH (12:11)
--- NOTE | 2017-09-08 14:11 | PN ---
Progress Note (short form) - Note Progress Note: Patient seen and examined Overall condition same Had low-grade temperature last night Afebrile today Vital Signs Temp 97.9 F 09/08/17 10:00 Pulse 77 09/08/17 12:11 Resp 16 09/08/17 11:37 BP 113/63 09/08/17 10:00 Pulse Ox 99 09/08/17 11:37 Intake & Output 09/07/17 09/08/17 09/08/17 23:59 11:59 23:59 Intake Total 1000 960 Output Total 700 100 Balance 300 860 Intake: Oral 0 Tube Feeding 700 720 Tube Irrigant 300 240 Output: Urine 700 100 Supra Pubic Tube 700 100 Other: Voiding Method Indwelling Catheter Indwelling Catheter Bowel Movement No Active Medications Acetaminophen (Tylenol Oral Solution -) 650 mg GT Q4H PRN PRN Reason: FEVER Last Admin: 09/07/17 18:45 Dose: 650 mg Albuterol Sulfate (Ventolin Hfa Inhaler -) 2 puff IH Q6H PRN PRN Reason: SHORTNESS OF BREATH Amiodarone HCl (Cordarone -) 200 mg GT BID [facility] Last Admin: 09/08/17 12:07 Dose: 200 mg Apixaban (Eliquis -) 5 mg PO BID [facility] Last Admin: 09/08/17 12:09 Dose: 5 mg Cefuroxime Axetil (Ceftin Oral Suspension -) 500 mg PO BID [facility] Last Admin: 09/07/17 22:53 Dose: 500 mg Digoxin (Lanoxin -) 0.25 mg PEG DAILY [facility] Last Admin: 09/08/17 12:11 Dose: 0.25 mg Furosemide (Lasix -) 20 mg PEG DAILY [facility] Last Admin: 09/08/17 12:07 Dose: 20 mg Metoprolol Tartrate (Lopressor -) 50 mg GT TID [facility] Last Admin: 09/08/17 05:31 Dose: 50 mg Pantoprazole Sodium (Protonix Packets For Oral Suspension -) 40 mg PEG DAILY [facility] Last Admin: 09/08/17 12:08 Dose: 40 mg Senna (Senna Oral Solution -) 8.8 mg GT DAILY [facility] Last Admin: 09/08/17 12:08 Dose: 8.8 mg CBC, BMP 09/07/17 05:28 09/07/17 05:28 Physical Exam Gen: non verbal . awake on vent . s/p trach - vent PULM: scattered rhonchi, CV: S1, S2 Irregular ABD: PEG, supra public catheter . EXT: venous stasis changes, 2+ pitting depend edema, stage IV 2x2 sacral . A/P Sepsis Rapid afib Chronic Respiratory Failure/vent dependent Functional Quadriplegia Anemia -cardiomyopathy - uti +ve cultures-- likely contaminant - Clinically stable wound care team to follow today Will discharge back to long-term today See detailed discharge summary as of yesterday Problem List - Problems (1) Atrial fibrillation Code(s): I48.91 - UNSPECIFIED ATRIAL FIBRILLATION Qualifiers: Atrial fibrillation type: persistent Qualified Code(s): I48.1 - Persistent atrial fibrillation (2) Seizure Code(s): R56.9 - UNSPECIFIED CONVULSIONS (3) Anemia Code(s): D64.9 - ANEMIA, UNSPECIFIED (4) Quadriplegia, functional Code(s): R53.2 - FUNCTIONAL QUADRIPLEGIA (5) Rapid atrial fibrillation Code(s): I48.91 - UNSPECIFIED ATRIAL FIBRILLATION (6) UTI (urinary tract infection) Code(s): N39.0 - URINARY TRACT INFECTION, SITE NOT SPECIFIED Qualifiers: Urinary tract infection type: site unspecified Hematuria presence: without hematuria Qualified Code(s): N39.0 - Urinary tract infection, site not specified
[2017-09-08] MEDS: CEFUROXIME AXETIL 250 MG/5 ML BOTTLE PO SCH ×2 (14:18→21:12)
--- NOTE | 2017-09-08 14:18 | PN ---
Progress Note, Physician History of Present Illness: pulmonary lethargic on vent support ac mode - Current Medication List Current Medications: Active Medications Acetaminophen (Tylenol Oral Solution -) 650 mg GT Q4H PRN PRN Reason: FEVER Last Admin: 09/07/17 18:45 Dose: 650 mg Albuterol Sulfate (Ventolin Hfa Inhaler -) 2 puff IH Q6H PRN PRN Reason: SHORTNESS OF BREATH Amiodarone HCl (Cordarone -) 200 mg GT BID [facility] Last Admin: 09/08/17 12:07 Dose: 200 mg Apixaban (Eliquis -) 5 mg PO BID [facility] Last Admin: 09/08/17 12:09 Dose: 5 mg Cefuroxime Axetil (Ceftin Oral Suspension -) 500 mg PO BID [facility] Last Admin: 09/07/17 22:53 Dose: 500 mg Digoxin (Lanoxin -) 0.25 mg PEG DAILY [facility] Last Admin: 09/08/17 12:11 Dose: 0.25 mg Furosemide (Lasix -) 20 mg PEG DAILY [facility] Last Admin: 09/08/17 12:07 Dose: 20 mg Metoprolol Tartrate (Lopressor -) 50 mg GT TID [facility] Last Admin: 09/08/17 05:31 Dose: 50 mg Pantoprazole Sodium (Protonix Packets For Oral Suspension -) 40 mg PEG DAILY [facility] Last Admin: 09/08/17 12:08 Dose: 40 mg Senna (Senna Oral Solution -) 8.8 mg GT DAILY [facility] Last Admin: 09/08/17 12:08 Dose: 8.8 mg - Objective Vital Signs: Vital Signs Temperature 97.9 F 09/08/17 10:00 Pulse Rate 77 09/08/17 12:11 Respiratory Rate 16 09/08/17 11:37 Blood Pressure 113/63 09/08/17 10:00 O2 Sat by Pulse Oximetry (%) 99 09/08/17 11:37 Constitutional: Yes: Well Nourished, Other (lethargic) Eyes: Yes: WNL HENT: Yes: WNL Neck: Yes: Supple (trach) Cardiovascular: Yes: Pulse Irregular, S1, S2 Respiratory: Yes: Rhonchi (scattered silva rhonchi) Gastrointestinal: Yes: Normal Bowel Sounds, Soft Extremities: Yes: WNL Edema: Yes Labs: CBC, BMP 09/07/17 05:28 Problem List - Problems (1) Anoxic brain injury Code(s): G93.1 - ANOXIC BRAIN DAMAGE, NOT ELSEWHERE CLASSIFIED (2) Atrial fibrillation Code(s): I48.91 - UNSPECIFIED ATRIAL FIBRILLATION Qualifiers: Atrial fibrillation type: persistent Qualified Code(s): I48.1 - Persistent atrial fibrillation (3) Hepatitis C carrier Code(s): Z22.52 - (4) Seizure Code(s): R56.9 - UNSPECIFIED CONVULSIONS (5) Anemia Code(s): D64.9 - ANEMIA, UNSPECIFIED (6) Chronic respiratory failure Code(s): J96.10 - CHRONIC RESPIRATORY FAILURE, UNSP W HYPOXIA OR HYPERCAPNIA Qualifiers: Respiratory failure complication: unspecified whether with hypoxia or hypercapnia Qualified Code(s): J96.10 - Chronic respiratory failure, unspecified whether with hypoxia or hypercapnia (7) Tracheostomy tube present Code(s): Z93.0 - TRACHEOSTOMY STATUS Assessment/Plan SSESSMENT AND PLAN: Chronic Respiratory Failure Atrial Fibrillation with RVR Pneumonia Anoxic Encephalopathy Hypothyroidism Functional Quadriplegia - ABX per ID: Switch to oral - AC - continue volume assist control - poor candidate for weaning at this time - enteral feeds - DVT/GI prophylaxis - No Pulmonary contraindication for D/C - Repeat CXR in a few weeks or based on clinical condition DR ALEXANDER
[2017-09-09] MEDS: METOPROLOL TARTRATE 50 MG TABLET (FP) GT SCH ×3 (06:06→21:46)
--- NOTE | 2017-09-09 09:25 | PN ---
Progress Note, Physician History of Present Illness: pulmonary no change poorly responsive on vent support ac mode - Current Medication List Current Medications: Active Medications Acetaminophen (Tylenol Oral Solution -) 650 mg GT Q4H PRN PRN Reason: FEVER Last Admin: 09/07/17 18:45 Dose: 650 mg Albuterol Sulfate (Ventolin Hfa Inhaler -) 2 puff IH Q6H PRN PRN Reason: SHORTNESS OF BREATH Amiodarone HCl (Cordarone -) 200 mg GT BID [facility] Last Admin: 09/08/17 21:12 Dose: 200 mg Apixaban (Eliquis -) 5 mg PO BID [facility] Last Admin: 09/08/17 21:12 Dose: 5 mg Cefuroxime Axetil (Ceftin Oral Suspension -) 500 mg PO BID [facility] Last Admin: 09/08/17 21:12 Dose: 500 mg Digoxin (Lanoxin -) 0.25 mg PEG DAILY [facility] Last Admin: 09/08/17 12:11 Dose: 0.25 mg Furosemide (Lasix -) 20 mg PEG DAILY [facility] Last Admin: 09/08/17 12:07 Dose: 20 mg Metoprolol Tartrate (Lopressor -) 50 mg GT TID [facility] Last Admin: 09/09/17 06:06 Dose: 50 mg Pantoprazole Sodium (Protonix Packets For Oral Suspension -) 40 mg PEG DAILY [facility] Last Admin: 09/08/17 12:08 Dose: 40 mg Senna (Senna Oral Solution -) 8.8 mg GT DAILY [facility] Last Admin: 09/08/17 12:08 Dose: 8.8 mg - Objective Vital Signs: Vital Signs Temperature 100.1 F H 09/09/17 06:00 Pulse Rate 66 09/09/17 08:36 Respiratory Rate 15 09/09/17 08:36 Blood Pressure 129/78 09/09/17 06:00 O2 Sat by Pulse Oximetry (%) 98 09/09/17 08:36 Constitutional: Yes: Well Nourished, Other (poorly responsive) Eyes: Yes: WNL HENT: Yes: WNL Neck: Yes: Supple (trach) Cardiovascular: Yes: Pulse Irregular, S1, S2 Respiratory: Yes: Rhonchi (few scattered rhonchi) Gastrointestinal: Yes: Normal Bowel Sounds, Soft Extremities: Yes: WNL Edema: Yes Problem List - Problems (1) Anoxic brain injury Code(s): G93.1 - ANOXIC BRAIN DAMAGE, NOT ELSEWHERE CLASSIFIED (2) Atrial fibrillation Code(s): I48.91 - UNSPECIFIED ATRIAL FIBRILLATION Qualifiers: Atrial fibrillation type: persistent Qualified Code(s): I48.1 - Persistent atrial fibrillation (3) Hepatitis C carrier Code(s): Z22.52 - (4) Seizure Code(s): R56.9 - UNSPECIFIED CONVULSIONS (5) Anemia Code(s): D64.9 - ANEMIA, UNSPECIFIED (6) Chronic respiratory failure Code(s): J96.10 - CHRONIC RESPIRATORY FAILURE, UNSP W HYPOXIA OR HYPERCAPNIA Qualifiers: Respiratory failure complication: unspecified whether with hypoxia or hypercapnia Qualified Code(s): J96.10 - Chronic respiratory failure, unspecified whether with hypoxia or hypercapnia (7) Tracheostomy tube present Code(s): Z93.0 - TRACHEOSTOMY STATUS Assessment/Plan SSESSMENT AND PLAN: Chronic Respiratory Failure Atrial Fibrillation with RVR Pneumonia Anoxic Encephalopathy Hypothyroidism Functional Quadriplegia - AC - continue volume assist control - poor candidate for weaning at this time - enteral feeds - DVT/GI prophylaxis - No Pulmonary contraindication for D/C - Repeat CXR in a few weeks or based on clinical condition DR ALEXANDER
[2017-09-09] MEDS: PANTOPRAZOLE SOD 40 MG SUSPENSION PACKET PEG SCH (10:57)
[2017-09-09] MEDS: AMIODARONE HCL 200 MG TABLET (FP) GT SCH ×2 (10:57→21:46)
[2017-09-09] MEDS: FUROSEMIDE 20 MG TABLET (FP) PEG SCH (10:57)
[2017-09-09] MEDS: SENNOSIDES 8.8 MG/5 ML BULK BOTTLE GT SCH (11:00)
[2017-09-09] MEDS: APIXABAN 5 MG TABLET PO SCH ×2 (13:28→21:46)
[2017-09-09] MEDS: CEFUROXIME AXETIL 250 MG/5 ML BOTTLE PO SCH ×2 (13:29→22:45)
[2017-09-09] MEDS: DIGOXIN 0.25 MG TABLET (FP) PEG SCH (13:30)
--- NOTE | 2017-09-09 14:28 | PN ---
Progress Note (short form) - Note Progress Note: awake on vent afebrile no new events Vital Signs Temp 98.5 F 09/09/17 10:50 Pulse 76 09/09/17 13:30 Resp 19 09/09/17 14:03 BP 135/96 09/09/17 10:50 Pulse Ox 98 09/09/17 11:21 Intake & Output 09/08/17 09/09/17 09/09/17 23:59 11:59 23:59 Intake Total 1070 1020 Output Total 700 200 150 Balance 370 820 -150 Intake: Oral 0 Tube Feeding 720 720 Tube Irrigant 350 300 Output: Urine 700 200 150 Supra Pubic Tube 700 200 150 Other: Voiding Method Indwelling Catheter Bowel Movement No Active Medications Acetaminophen (Tylenol Oral Solution -) 650 mg GT Q4H PRN PRN Reason: FEVER Last Admin: 09/07/17 18:45 Dose: 650 mg Albuterol Sulfate (Ventolin Hfa Inhaler -) 2 puff IH Q6H PRN PRN Reason: SHORTNESS OF BREATH Amiodarone HCl (Cordarone -) 200 mg GT BID [facility] Last Admin: 09/09/17 10:57 Dose: 200 mg Apixaban (Eliquis -) 5 mg PO BID [facility] Last Admin: 09/09/17 13:28 Dose: 5 mg Cefuroxime Axetil (Ceftin Oral Suspension -) 500 mg PO BID [facility] Last Admin: 09/09/17 13:29 Dose: 500 mg Digoxin (Lanoxin Oral Solution -) 250 mcg PEG DAILY [facility] Furosemide (Lasix -) 20 mg PEG DAILY [facility] Last Admin: 09/09/17 10:57 Dose: 20 mg Metoprolol Tartrate (Lopressor -) 50 mg GT TID [facility] Last Admin: 09/09/17 06:06 Dose: 50 mg Pantoprazole Sodium (Protonix Packets For Oral Suspension -) 40 mg PEG DAILY [facility] Last Admin: 09/09/17 10:57 Dose: 40 mg Senna (Senna Oral Solution -) 8.8 mg GT DAILY [facility] Last Admin: 09/09/17 11:00 Dose: 8.8 mg CBC, BMP 09/07/17 05:28 09/07/17 05:28 Physical Exam Gen: non verbal . awake on vent . s/p trach - vent PULM: scattered rhonchi, CV: S1, S2 Irregular ABD: PEG, supra public catheter . EXT: venous stasis changes, 2+ pitting depend edema, stage IV 2x2 sacral . A/P Sepsis Rapid afib Chronic Respiratory Failure/vent dependent Functional Quadriplegia Anemia -cardiomyopathy - uti +ve cultures-- likely contaminant - Clinically stable local wound care Will discharge back to long-term today-- but [facility] unable to take him back over weekend-- Discussed with adult protective caseworker will follow Problem List - Problems (1) Atrial fibrillation Code(s): I48.91 - UNSPECIFIED ATRIAL FIBRILLATION Qualifiers: Atrial fibrillation type: persistent Qualified Code(s): I48.1 - Persistent atrial fibrillation (2) Seizure Code(s): R56.9 - UNSPECIFIED CONVULSIONS (3) Anemia Code(s): D64.9 - ANEMIA, UNSPECIFIED (4) Quadriplegia, functional Code(s): R53.2 - FUNCTIONAL QUADRIPLEGIA (5) Rapid atrial fibrillation Code(s): I48.91 - UNSPECIFIED ATRIAL FIBRILLATION (6) UTI (urinary tract infection) Code(s): N39.0 - URINARY TRACT INFECTION, SITE NOT SPECIFIED Qualifiers: Urinary tract infection type: site unspecified Hematuria presence: without hematuria Qualified Code(s): N39.0 - Urinary tract infection, site not specified
--- NOTE | 2017-09-09 14:42 | PN ---
Progress Note, Physician Chief Complaint: Remains on vent support Poorly responsive History of Present Illness: Patient was seen and examined. Chart was reviewed - Current Medication List Current Medications: Active Medications Acetaminophen (Tylenol Oral Solution -) 650 mg GT Q4H PRN PRN Reason: FEVER Last Admin: 09/07/17 18:45 Dose: 650 mg Albuterol Sulfate (Ventolin Hfa Inhaler -) 2 puff IH Q6H PRN PRN Reason: SHORTNESS OF BREATH Amiodarone HCl (Cordarone -) 200 mg GT BID [facility] Last Admin: 09/09/17 10:57 Dose: 200 mg Apixaban (Eliquis -) 5 mg PO BID [facility] Last Admin: 09/09/17 13:28 Dose: 5 mg Bacitracin (Bacitracin -) 1 applic TP DAILY [facility] Cefuroxime Axetil (Ceftin Oral Suspension -) 500 mg PO BID [facility] Last Admin: 09/09/17 13:29 Dose: 500 mg Digoxin (Lanoxin Oral Solution -) 250 mcg PEG DAILY [facility] Furosemide (Lasix -) 20 mg PEG DAILY [facility] Last Admin: 09/09/17 10:57 Dose: 20 mg Metoprolol Tartrate (Lopressor -) 50 mg GT TID [facility] Last Admin: 09/09/17 06:06 Dose: 50 mg Pantoprazole Sodium (Protonix Packets For Oral Suspension -) 40 mg PEG DAILY [facility] Last Admin: 09/09/17 10:57 Dose: 40 mg Senna (Senna Oral Solution -) 8.8 mg GT DAILY [facility] Last Admin: 09/09/17 11:00 Dose: 8.8 mg - Objective Vital Signs: Vital Signs Temperature 98.5 F 09/09/17 10:50 Pulse Rate 76 09/09/17 13:30 Respiratory Rate 19 09/09/17 14:03 Blood Pressure 135/96 09/09/17 10:50 O2 Sat by Pulse Oximetry (%) 98 09/09/17 11:21 Neck: Yes: Supple Cardiovascular: Yes: Pulse Irregular, S1, S2 Respiratory: Yes: Diminished, Mechanically Ventilated Gastrointestinal: Yes: Normal Bowel Sounds, Soft. No: Tenderness Edema: No Problem List - Problems (1) Atrial fibrillation Code(s): I48.91 - UNSPECIFIED ATRIAL FIBRILLATION Qualifiers: Atrial fibrillation type: persistent Qualified Code(s): I48.1 - Persistent atrial fibrillation (2) Mitral valve prolapse Code(s): I34.1 - NONRHEUMATIC MITRAL (VALVE) PROLAPSE (3) Chronic respiratory failure Code(s): J96.10 - CHRONIC RESPIRATORY FAILURE, UNSP W HYPOXIA OR HYPERCAPNIA Qualifiers: Respiratory failure complication: unspecified whether with hypoxia or hypercapnia Qualified Code(s): J96.10 - Chronic respiratory failure, unspecified whether with hypoxia or hypercapnia (4) Quadriplegia, functional Code(s): R53.2 - FUNCTIONAL QUADRIPLEGIA (5) Rheumatic heart disease Code(s): I09.9 - RHEUMATIC HEART DISEASE, UNSPECIFIED (6) Sepsis Code(s): A41.9 - SEPSIS, UNSPECIFIED ORGANISM Qualifiers: Sepsis type: sepsis due to unspecified organism Qualified Code(s): A41.9 - Sepsis, unspecified organism (7) Tracheostomy tube present Code(s): Z93.0 - TRACHEOSTOMY STATUS Assessment/Plan 1. Persistent atrial fibrillation with periods of rapid ventricular response, [id number] score of 0-1 on DOAC (Eliquis) 2. Chronic respiratory failure ventilator dependent/tracheostomy, acute exacerbation pneumonia and probable 3. Congestive heart failure related to diastolic LV dysfunction 4. Anoxic encephalopathy/history of anoxic brain injury post 5. History of cardiac arrest 6. History of substance abuse 7. Anemia 8. Hypothyroidism 9. Functional Quadriplegia 10. UTI PLAN: 1. Continue Eliquis 5 bid with close monitoring of CBC 2. Continue Lopressor 50 tid 3. Continue Amiodarone 4. Continue Digoxin with caution 5. Diuretics 6. Antibiotic Brian Boyer MD
[2017-09-09] MEDS: BACITRACIN 15 GM TUBE TOPICAL OINTMENT TP SCH (15:45)
[2017-09-09] MEDS ORDERED: PT OWN MED DRAWER 7, Y5N ONE (20:45)
[2017-09-09] MEDS: ACETAMINOPHEN 650 MG/20.3 ML ORAL SOLUTION (CUPS) GT PRN (22:55)
[2017-09-10] MEDS: METOPROLOL TARTRATE 50 MG TABLET (FP) GT SCH ×3 (05:55→22:23)
[2017-09-10] MEDS: DIGOXIN 250 MCG/5 ML LIQUID PEG SCH (10:43)
[2017-09-10] MEDS: CEFUROXIME AXETIL 250 MG/5 ML BOTTLE PO SCH ×2 (10:44→22:35)
[2017-09-10] MEDS: PANTOPRAZOLE SOD 40 MG SUSPENSION PACKET PEG SCH (10:44)
[2017-09-10] MEDS: SENNOSIDES 8.8 MG/5 ML BULK BOTTLE GT SCH (10:44)
[2017-09-10] MEDS: APIXABAN 5 MG TABLET PO SCH ×2 (10:44→22:23)
[2017-09-10] MEDS: FUROSEMIDE 20 MG TABLET (FP) PEG SCH (10:44)
[2017-09-10] MEDS: BACITRACIN 15 GM TUBE TOPICAL OINTMENT TP SCH (10:45)
[2017-09-10] MEDS: AMIODARONE HCL 200 MG TABLET (FP) GT SCH ×2 (10:45→22:23)
--- NOTE | 2017-09-10 11:17 | PN ---
Progress Note, Physician History of Present Illness: pulmonary poorly responsive on vent support ac mode - Current Medication List Current Medications: Active Medications Acetaminophen (Tylenol Oral Solution -) 650 mg GT Q4H PRN PRN Reason: FEVER Last Admin: 09/09/17 22:55 Dose: 650 mg Albuterol Sulfate (Ventolin Hfa Inhaler -) 2 puff IH Q6H PRN PRN Reason: SHORTNESS OF BREATH Amiodarone HCl (Cordarone -) [address] [facility] Last Admin: 09/10/17 10:45 Dose: 200 mg Apixaban (Eliquis -) [address] [facility] Last Admin: 09/10/17 10:44 Dose: 5 mg Bacitracin (Bacitracin -) [address] [facility] Last Admin: 09/10/17 10:45 Dose: 1 applic Cefuroxime Axetil (Ceftin Oral Suspension -) [address] [facility] Last Admin: 09/10/17 10:44 Dose: 500 mg Digoxin (Lanoxin Oral Solution -) [address] [facility] Last Admin: 09/10/17 10:43 Dose: 250 mcg Furosemide (Lasix -) [address] [facility] Last Admin: 09/10/17 10:44 Dose: 20 mg Metoprolol Tartrate (Lopressor -) [address] [facility] Last Admin: 09/10/17 05:55 Dose: 50 mg Pantoprazole Sodium (Protonix Packets For Oral Suspension -) [address] [facility] Last Admin: 09/10/17 10:44 Dose: 40 mg Senna (Senna Oral Solution -) 8.[address] [facility] Last Admin: 09/10/17 10:44 Dose: 8.8 mg - Objective Vital Signs: Vital Signs Temperature 98.3 F 09/10/17 08:57 Pulse Rate 68 09/10/17 10:43 Respiratory Rate 19 09/10/17 11:07 Blood Pressure 109/60 09/10/17 08:57 O2 Sat by Pulse Oximetry (%) 98 09/10/17 11:08 Constitutional: Yes: Well Nourished, Other (unresponsive) Eyes: Yes: WNL HENT: Yes: WNL Neck: Yes: Supple (trach) Cardiovascular: Yes: Pulse Irregular, S1, S2 Respiratory: Yes: Rhonchi (scattered rhonchi) Gastrointestinal: Yes: Normal Bowel Sounds, Soft Extremities: Yes: WNL Edema: Yes Labs: Problem List - Problems (1) Anoxic brain injury Code(s): G93.1 - ANOXIC BRAIN DAMAGE, NOT ELSEWHERE CLASSIFIED (2) Atrial fibrillation Code(s): I48.91 - UNSPECIFIED ATRIAL FIBRILLATION Qualifiers: Atrial fibrillation type: persistent Qualified Code(s): I48.1 - Persistent atrial fibrillation (3) Hepatitis C carrier Code(s): Z22.52 - (4) Seizure Code(s): R56.9 - UNSPECIFIED CONVULSIONS (5) Anemia Code(s): D64.9 - ANEMIA, UNSPECIFIED (6) Chronic respiratory failure Code(s): J96.10 - CHRONIC RESPIRATORY FAILURE, UNSP W HYPOXIA OR HYPERCAPNIA Qualifiers: Respiratory failure complication: unspecified whether with hypoxia or hypercapnia Qualified Code(s): J96.10 - Chronic respiratory failure, unspecified whether with hypoxia or hypercapnia (7) Tracheostomy tube present Code(s): Z93.0 - TRACHEOSTOMY STATUS Assessment/Plan SSESSMENT AND PLAN: Chronic Respiratory Failure Atrial Fibrillation with RVR Pneumonia Anoxic Encephalopathy Hypothyroidism Functional Quadriplegia - AC - continue volume assist control - poor candidate for weaning at this time - enteral feeds - DVT/GI prophylaxis DR ALEXANDER
--- NOTE | 2017-09-10 12:06 | PN ---
Progress Note (short form) - Note Progress Note: pt seen/ examined . overall condition same comfortable low grade temp Vital Signs Temp 98.3 F 09/10/17 08:57 Pulse 68 09/10/17 10:43 Resp 19 09/10/17 11:07 BP 109/60 09/10/17 08:57 Pulse Ox 98 09/10/17 11:08 Intake & Output 09/09/17 09/10/17 09/10/17 23:59 11:59 23:59 Intake Total 1100 1020 Output Total 760 400 Balance 340 620 Intake: Tube Feeding 700 720 Tube Irrigant 400 300 Output: Urine 760 400 Supra Pubic Tube 760 400 Other: Voiding Method Indwelling Catheter Indwelling Catheter Bowel Movement No No Problem List - Problems (1) Atrial fibrillation Code(s): I48.91 - UNSPECIFIED ATRIAL FIBRILLATION Qualifiers: Atrial fibrillation type: persistent Qualified Code(s): I48.1 - Persistent atrial fibrillation (2) Seizure Code(s): R56.9 - UNSPECIFIED CONVULSIONS (3) Anemia Code(s): D64.9 - ANEMIA, UNSPECIFIED (4) Quadriplegia, functional Code(s): R53.2 - FUNCTIONAL QUADRIPLEGIA (5) Rapid atrial fibrillation Code(s): I48.91 - UNSPECIFIED ATRIAL FIBRILLATION (6) UTI (urinary tract infection) Code(s): N39.0 - URINARY TRACT INFECTION, SITE NOT SPECIFIED Qualifiers: Urinary tract infection type: site unspecified Hematuria presence: without hematuria Qualified Code(s): N39.0 - Urinary tract infection, site not specified
--- NOTE | 2017-09-10 12:09 | PN ---
Progress Note (short form) - Note Progress Note: pt seen/ examined comfortable overall condition same low grade temp Vital Signs Temp 98.3 F 09/10/17 08:57 Pulse 68 09/10/17 10:43 Resp 19 09/10/17 11:07 BP 109/60 09/10/17 08:57 Pulse Ox 98 09/10/17 11:08 Intake & Output 09/09/17 09/10/17 09/10/17 23:59 11:59 23:59 Intake Total 1100 1020 Output Total 760 400 Balance 340 620 Intake: Tube Feeding 700 720 Tube Irrigant 400 300 Output: Urine 760 400 Supra Pubic Tube 760 400 Other: Voiding Method Indwelling Catheter Indwelling Catheter Bowel Movement No No Active Medications Acetaminophen (Tylenol Oral Solution -) 650 mg GT Q4H PRN PRN Reason: FEVER Last Admin: 09/09/17 22:55 Dose: 650 mg Albuterol Sulfate (Ventolin Hfa Inhaler -) 2 puff IH Q6H PRN PRN Reason: SHORTNESS OF BREATH Amiodarone HCl (Cordarone -) 200 mg GT BID [facility] Last Admin: 09/10/17 10:45 Dose: 200 mg Apixaban (Eliquis -) 5 mg PO BID [facility] Last Admin: 09/10/17 10:44 Dose: 5 mg Bacitracin (Bacitracin -) 1 applic TP DAILY [facility] Last Admin: 09/10/17 10:45 Dose: 1 applic Cefuroxime Axetil (Ceftin Oral Suspension -) 500 mg PO BID [facility] Last Admin: 09/10/17 10:44 Dose: 500 mg Digoxin (Lanoxin Oral Solution -) 250 mcg PEG DAILY [facility] Last Admin: 09/10/17 10:43 Dose: 250 mcg Furosemide (Lasix -) 20 mg PEG DAILY [facility] Last Admin: 09/10/17 10:44 Dose: 20 mg Metoprolol Tartrate (Lopressor -) 50 mg GT TID [facility] Last Admin: 09/10/17 05:55 Dose: 50 mg Pantoprazole Sodium (Protonix Packets For Oral Suspension -) 40 mg PEG DAILY [facility] Last Admin: 09/10/17 10:44 Dose: 40 mg Senna (Senna Oral Solution -) 8.8 mg GT DAILY [facility] Last Admin: 09/10/17 10:44 Dose: 8.8 mg CBC, BMP 09/07/17 05:28 05/31/18 05:28 Physical Exam Gen: non verbal . awake on vent . s/p trach - vent PULM: scattered rhonchi, CV: S1, S2 Irregular ABD: PEG, supra public catheter . EXT: venous stasis changes, 1+ pitting depend edema, stage IV 2x2 sacral . A/P Sepsis Rapid afib Chronic Respiratory Failure/vent dependent Functional Quadriplegia Anemia -cardiomyopathy - uti +ve cultures-- likely contaminant - Clinically stable local wound care --continue present care will follow Problem List - Problems (1) Atrial fibrillation Code(s): I48.91 - UNSPECIFIED ATRIAL FIBRILLATION Qualifiers: Atrial fibrillation type: persistent Qualified Code(s): I48.1 - Persistent atrial fibrillation (2) Seizure Code(s): R56.9 - UNSPECIFIED CONVULSIONS (3) Anemia Code(s): D64.9 - ANEMIA, UNSPECIFIED (4) Quadriplegia, functional Code(s): R53.2 - FUNCTIONAL QUADRIPLEGIA (5) Rapid atrial fibrillation Code(s): I48.91 - UNSPECIFIED ATRIAL FIBRILLATION (6) UTI (urinary tract infection) Code(s): N39.0 - URINARY TRACT INFECTION, SITE NOT SPECIFIED Qualifiers: Urinary tract infection type: site unspecified Hematuria presence: without hematuria Qualified Code(s): N39.0 - Urinary tract infection, site not specified
[2017-09-11] MEDS: METOPROLOL TARTRATE 50 MG TABLET (FP) GT SCH ×3 (05:53→23:16)
[2017-09-11] MEDS ORDERED: PT OWN MED DRAWER 7, Y5N ONE ×3 (09:56→22:05)
[2017-09-11] MEDS: DIGOXIN 250 MCG/5 ML LIQUID PEG SCH (10:04)
[2017-09-11] MEDS: BACITRACIN 15 GM TUBE TOPICAL OINTMENT TP SCH (10:04)
[2017-09-11] MEDS: APIXABAN 5 MG TABLET PO SCH ×2 (10:04→23:16)
[2017-09-11] MEDS: PANTOPRAZOLE SOD 40 MG SUSPENSION PACKET PEG SCH (10:05)
[2017-09-11] MEDS: SENNOSIDES 8.8 MG/5 ML BULK BOTTLE GT SCH (10:05)
[2017-09-11] MEDS: AMIODARONE HCL 200 MG TABLET (FP) GT SCH (10:05)
[2017-09-11] MEDS: FUROSEMIDE 20 MG TABLET (FP) PEG SCH (10:06)
[2017-09-11] MEDS: ACETAMINOPHEN 650 MG/20.3 ML ORAL SOLUTION (CUPS) GT PRN (10:11)
[2017-09-11] MEDS: CEFUROXIME AXETIL 250 MG/5 ML BOTTLE PO SCH ×2 (11:47→23:16)
--- NOTE | 2017-09-11 11:55 | PN ---
Progress Note (short form) - Note Progress Note: febrile today-- 100 F overall condition same Vital Signs Temp 100.0 F H 09/11/17 09:28 Pulse 72 09/11/17 10:04 Resp 17 09/11/17 11:10 BP 123/58 09/11/17 09:28 Pulse Ox 96 09/11/17 11:11 Intake & Output 09/10/17 09/10/17 09/11/17 11:59 23:59 11:59 Intake Total 1020 1100 Output Total 400 800 550 Balance 620 300 -550 Intake: Tube Feeding 720 700 Tube Irrigant 300 400 Output: Urine 400 800 550 Supra Pubic Tube 400 800 550 Other: Voiding Method Indwelling Catheter Indwelling Catheter Diaper Bowel Movement No No No Active Medications Acetaminophen (Tylenol Oral Solution -) 650 mg GT Q4H PRN PRN Reason: FEVER Last Admin: 09/11/17 10:11 Dose: 650 mg Albuterol Sulfate (Ventolin Hfa Inhaler -) 2 puff IH Q6H PRN PRN Reason: SHORTNESS OF BREATH Amiodarone HCl (Cordarone -) 200 mg GT BID [facility] Last Admin: 09/11/17 10:05 Dose: 200 mg Apixaban (Eliquis -) 5 mg PO BID [facility] Last Admin: 09/11/17 10:04 Dose: 5 mg Bacitracin (Bacitracin -) 1 applic TP DAILY [facility] Last Admin: 09/11/17 10:04 Dose: 1 applic Cefuroxime Axetil (Ceftin Oral Suspension -) 500 mg PO BID [facility] Last Admin: 09/11/17 11:47 Dose: 500 mg Digoxin (Lanoxin Oral Solution -) 250 mcg PEG DAILY [facility] Last Admin: 09/11/17 10:04 Dose: 250 mcg Furosemide (Lasix -) 20 mg PEG DAILY [facility] Last Admin: 09/11/17 10:06 Dose: 20 mg Metoprolol Tartrate (Lopressor -) 50 mg GT TID [facility] Last Admin: 09/11/17 05:53 Dose: 50 mg Pantoprazole Sodium (Protonix Packets For Oral Suspension -) 40 mg PEG DAILY [facility] Last Admin: 09/11/17 10:05 Dose: 40 mg Potassium Chloride (Potassium Chloride Oral Liquid) 20 meq PO DAILY [facility] Senna (Senna Oral Solution -) 8.8 mg GT DAILY [facility] Last Admin: 09/11/17 10:05 Dose: 8.8 mg CBC, BMP 09/07/17 05:28 09/07/17 05:28 Physical Exam Gen: non verbal . awake on vent . s/p trach - vent PULM: scattered rhonchi, CV: S1, S2 Irregular ABD: PEG, supra public catheter . EXT: venous stasis changes, 1+ pitting depend edema, stage IV 2x2 sacral . A/P Fever Sepsis Rapid afib Chronic Respiratory Failure/vent dependent. Functional Quadriplegia Anemia -cardiomyopathy - uti +ve cultures-- likely contaminant Monitor today. labs tomorrow Hold d/c today cxr - 09/10/17 - reviewed- Discussed with nursing staff Will follow Problem List - Problems (1) Atrial fibrillation Code(s): I48.91 - UNSPECIFIED ATRIAL FIBRILLATION Qualifiers: Atrial fibrillation type: persistent Qualified Code(s): I48.1 - Persistent atrial fibrillation (2) Seizure Code(s): R56.9 - UNSPECIFIED CONVULSIONS (3) Anemia Code(s): D64.9 - ANEMIA, UNSPECIFIED (4) Quadriplegia, functional Code(s): R53.2 - FUNCTIONAL QUADRIPLEGIA (5) Rapid atrial fibrillation Code(s): I48.91 - UNSPECIFIED ATRIAL FIBRILLATION (6) UTI (urinary tract infection) Code(s): N39.0 - URINARY TRACT INFECTION, SITE NOT SPECIFIED Qualifiers: Urinary tract infection type: site unspecified Hematuria presence: without hematuria Qualified Code(s): N39.0 - Urinary tract infection, site not specified
--- NOTE | 2017-09-11 12:02 | PN ---
Progress Note, Physician History of Present Illness: Remains in vent, poorly responsive, rate-controlled afib persists. - Current Medication List Current Medications: Active Medications Acetaminophen (Tylenol Oral Solution -) 650 mg GT Q4H PRN PRN Reason: FEVER Last Admin: 09/11/17 10:11 Dose: 650 mg Albuterol Sulfate (Ventolin Hfa Inhaler -) 2 puff IH Q6H PRN PRN Reason: SHORTNESS OF BREATH Amiodarone HCl (Cordarone -) 200 mg GT BID [facility] Last Admin: 09/11/17 10:05 Dose: 200 mg Apixaban (Eliquis -) 5 mg PO BID [facility] Last Admin: 09/11/17 10:04 Dose: 5 mg Bacitracin (Bacitracin -) 1 applic TP DAILY [facility] Last Admin: 09/11/17 10:04 Dose: 1 applic Cefuroxime Axetil (Ceftin Oral Suspension -) 500 mg PO BID [facility] Last Admin: 09/11/17 11:47 Dose: 500 mg Digoxin (Lanoxin Oral Solution -) 250 mcg PEG DAILY [facility] Last Admin: 09/11/17 10:04 Dose: 250 mcg Furosemide (Lasix -) 20 mg PEG DAILY [facility] Last Admin: 09/11/17 10:06 Dose: 20 mg Metoprolol Tartrate (Lopressor -) 50 mg GT TID [facility] Last Admin: 09/11/17 05:53 Dose: 50 mg Pantoprazole Sodium (Protonix Packets For Oral Suspension -) 40 mg PEG DAILY [facility] Last Admin: 09/11/17 10:05 Dose: 40 mg Potassium Chloride (Potassium Chloride Oral Liquid) 20 meq PO DAILY [facility] Senna (Senna Oral Solution -) 8.8 mg GT DAILY [facility] Last Admin: 09/11/17 10:05 Dose: 8.8 mg - Objective Vital Signs: Vital Signs Temperature 100.0 F H 09/11/17 09:28 Pulse Rate 72 09/11/17 10:04 Respiratory Rate 17 09/11/17 11:10 Blood Pressure 123/58 09/11/17 09:28 O2 Sat by Pulse Oximetry (%) 96 09/11/17 11:11 Constitutional: Yes: No Distress, Calm Neck: Yes: Supple Cardiovascular: Yes: Pulse Irregular Respiratory: Yes: Mechanically Ventilated, Rhonchi Gastrointestinal: Yes: Normal Bowel Sounds, Soft Edema: No Labs: CBC, BMP 09/07/17 05:28 09/07/17 05:28 INR, PTT INR 1.35 (0.82-1.09) H 08/30/17 12:20 - ....Imaging Chest X-ray: Report Reviewed (No CHF) Problem List - Problems (1) Atrial fibrillation Code(s): I48.91 - UNSPECIFIED ATRIAL FIBRILLATION Qualifiers: Atrial fibrillation type: persistent Qualified Code(s): I48.1 - Persistent atrial fibrillation (2) Chronic respiratory failure Code(s): J96.10 - CHRONIC RESPIRATORY FAILURE, UNSP W HYPOXIA OR HYPERCAPNIA Qualifiers: Respiratory failure complication: unspecified whether with hypoxia or hypercapnia Qualified Code(s): J96.10 - Chronic respiratory failure, unspecified whether with hypoxia or hypercapnia (3) Quadriplegia, functional Code(s): R53.2 - FUNCTIONAL QUADRIPLEGIA (4) Tracheostomy tube present Code(s): Z93.0 - TRACHEOSTOMY STATUS (5) Anoxic brain injury Code(s): G93.1 - ANOXIC BRAIN DAMAGE, NOT ELSEWHERE CLASSIFIED Assessment/Plan Echocardiography dated 08/01/17 revealed normal LV size and function with trace to mild MR 1. Persistent atrial fibrillation with periods of rapid ventricular response ( improved) [id number] score of 0-1 on DOAC's/Eliquis 2. Chronic respiratory failure ventilator dependent/tracheostomy, acute exacerbation pneumonia and probable 3. Congestive heart failure related to diastolic LV dysfunction, resolving 4. Anoxic encephalopathy/history of anoxic brain injury post 5. History of cardiac arrest 6. History of substance abuse 7. Anemia 8. Hypothyroidism 9. Functional Quadriplegia 10. UTI PLAN: 1. Continue Eliquis 5 bid with close monitoring of CBC, maintain Hg equal or > 8.0 2. Continue Lopressor 50 tid, hemodynamics permitting 3. Decrease Amiodarone 200 mg daily 4. Continue Digoxin 0.25 qd with caution and close monitoring of level 5. Continue Lasix 20 qd with close monitoring of diuretic response, renal function and electrolytes 6. May consider the addition of ARBS, hemodynamics permitting 7. Antibiotic course as per ID team, enteral feeds
--- NOTE | 2017-09-11 12:50 | PN ---
Progress Note, Physician History of Present Illness: pulmonary poorly responsive on vent support ac mode, febrile t 100 - Current Medication List Current Medications: Active Medications Acetaminophen (Tylenol Oral Solution -) 650 mg GT Q4H PRN PRN Reason: FEVER Last Admin: 09/11/17 10:11 Dose: 650 mg Albuterol Sulfate (Ventolin Hfa Inhaler -) 2 puff IH Q6H PRN PRN Reason: SHORTNESS OF BREATH Amiodarone HCl (Cordarone -) 200 mg GT DAILY [facility] Apixaban (Eliquis -) 5 mg PO BID [facility] Last Admin: 09/11/17 10:04 Dose: 5 mg Bacitracin (Bacitracin -) 1 applic TP DAILY [facility] Last Admin: 09/11/17 10:04 Dose: 1 applic Cefuroxime Axetil (Ceftin Oral Suspension -) 500 mg PO BID [facility] Last Admin: 09/11/17 11:47 Dose: 500 mg Digoxin (Lanoxin Oral Solution -) 250 mcg PEG DAILY [facility] Last Admin: 09/11/17 10:04 Dose: 250 mcg Furosemide (Lasix -) 20 mg PEG DAILY [facility] Last Admin: 09/11/17 10:06 Dose: 20 mg Metoprolol Tartrate (Lopressor -) 50 mg GT TID [facility] Last Admin: 09/11/17 05:53 Dose: 50 mg Pantoprazole Sodium (Protonix Packets For Oral Suspension -) 40 mg PEG DAILY [facility] Last Admin: 09/11/17 10:05 Dose: 40 mg Potassium Chloride (Potassium Chloride Oral Liquid) 20 meq PO DAILY [facility] Senna (Senna Oral Solution -) 8.8 mg GT DAILY [facility] Last Admin: 09/11/17 10:05 Dose: 8.8 mg - Objective Vital Signs: Vital Signs Temperature 100.0 F H 09/11/17 09:28 Pulse Rate 72 09/11/17 10:04 Respiratory Rate 17 09/11/17 11:10 Blood Pressure 123/58 09/11/17 09:28 O2 Sat by Pulse Oximetry (%) 96 09/11/17 11:11 Constitutional: Yes: Well Nourished, Calm Eyes: Yes: WNL HENT: Yes: WNL Neck: Yes: Supple (trach) Cardiovascular: Yes: Pulse Irregular, S1, S2 Respiratory: Yes: Rhonchi (few scattered) Gastrointestinal: Yes: Normal Bowel Sounds, Soft Extremities: Yes: WNL Edema: Yes Labs: Problem List - Problems (1) Anoxic brain injury Code(s): G93.1 - ANOXIC BRAIN DAMAGE, NOT ELSEWHERE CLASSIFIED (2) Atrial fibrillation Code(s): I48.91 - UNSPECIFIED ATRIAL FIBRILLATION Qualifiers: Atrial fibrillation type: persistent Qualified Code(s): I48.1 - Persistent atrial fibrillation (3) Hepatitis C carrier Code(s): Z22.52 - (4) Seizure Code(s): R56.9 - UNSPECIFIED CONVULSIONS (5) Anemia Code(s): D64.9 - ANEMIA, UNSPECIFIED (6) Chronic respiratory failure Code(s): J96.10 - CHRONIC RESPIRATORY FAILURE, UNSP W HYPOXIA OR HYPERCAPNIA Qualifiers: Respiratory failure complication: unspecified whether with hypoxia or hypercapnia Qualified Code(s): J96.10 - Chronic respiratory failure, unspecified whether with hypoxia or hypercapnia (7) Tracheostomy tube present Code(s): Z93.0 - TRACHEOSTOMY STATUS Assessment/Plan ASSESSMENT AND PLAN: Chronic Respiratory Failure Atrial Fibrillation with RVR Pneumonia Anoxic Encephalopathy Hypothyroidism Functional Quadriplegia - AC - continue volume assist control - poor candidate for weaning at this time - enteral feeds - DVT/GI prophylaxis - id f/u DR ALEXANDER
[2017-09-11] MEDS: POTASSIUM CHLORIDE ORAL LIQUID 20 MEQ/15 ML PO SCH (15:46)
--- NOTE | 2017-09-11 15:58 | PN ---
Progress Note (short form) - Note Progress Note: WOUND CARE / VASCULAR SURGERY : Rafa Amos Called to evaluate 62 yo male with trach/vent dependant. Asked that we eval his sacral ulcer. Last Vital Signs Temp Pulse Resp BP Pulse Ox 99.0 F 76 18 123/82 96 09/11/17 14:58 09/11/17 14:58 09/11/17 14:58 09/11/17 14:58 09/11/17 11:11 CBC, BMP 09/07/17 05:28 09/07/17 05:28 Sacrum: with tissue maceration. no discharge or signs of infection. some fibrinous material near pilonidal cleft. no signs of DTI. Problem List - Problems (1) Sacral pressure ulcer Assessment/Plan: Patient with sacral pressure ulcer. No leukocytosis. Tc 99F. Offload all pressure sensitive areas. Frequent turn and reposition. Santyl ordered with daily wound care to sacrum No surgical debridement needed. Cont medical mangement. On behalf of Dr. Amos, thank you for the opportunity to participate in your patient's care. Code(s): L89.159 - PRESSURE ULCER OF SACRAL REGION, UNSPECIFIED STAGE (2) Anoxic brain injury Code(s): G93.1 - ANOXIC BRAIN DAMAGE, NOT ELSEWHERE CLASSIFIED (3) Hepatitis C carrier Code(s): Z22.52 - (4) Quadriplegia, functional Code(s): R53.2 - FUNCTIONAL QUADRIPLEGIA (5) Tracheostomy tube present Code(s): Z93.0 - TRACHEOSTOMY STATUS
[2017-09-11 17:34] VITALS: BMI 26.9
[2017-09-12] MEDS: METOPROLOL TARTRATE 50 MG TABLET (FP) GT SCH ×2 (05:45→14:04)
[2017-09-12 08:00] LABS: BASO % 0.7 % (0-2.0); EOS % 7.4 % (0-4.5); HEMATOCRIT 33.7 % (35.4-49); HEMOGLOBIN 11.5 GM/dL (11.7-16.9); LYMPH % 24.6 % (8-40); MCH 33.3 pg (25.7-33.7); MCHC 34.2 g/dl (32.0-35.9); MEAN CELL VOLUME 97.3 fl (80-96); MEAN PLT VOLUME 9.8 fl (7.5-11.1); MONO % 7.3 % (3.8-10.2); PLATELET COUNT 184 K/MM3 (134-434); RBC 3.46 M/mm3 (4.00-5.60); RDW 14.6 % (11.9-15.9); WHITE BLOOD COUNT 7.1 K/mm3 (4.0-10.0)
[2017-09-12 08:33] LABS: CHLORIDE 103 mmol/L (98-107); POTASSIUM 4.1 mmol/L (3.5-5.1); SODIUM 140 mmol/L (136-145)
[2017-09-12 09:06] LABS: ALBUMIN 2.6 g/dl (3.4-5.0); ALK PHOS 55 U/L (45-117); ANION GAP 9 (8-16); BILIRUBIN,TOTAL 0.2 mg/dL (0.2-1.0); BLOOD UREA NITROGEN 24 mg/dL (7-18); CALCIUM 8.9 mg/dL (8.5-10.1); CO2 28 mmol/L (21-32); CREATININE 0.6 mg/dL (0.7-1.3); GLUCOSE,RANDOM 126 mg/dL (74-106); SGOT/AST 48 U/L (15-37); SGPT/ALT 57 U/L (12-78); TOT PROT 6.5 g/dl (6.4-8.2)
[2017-09-12] MEDS ORDERED: PT OWN MED DRAWER 7, Y5N ONE (09:09)
[2017-09-12] MEDS: BACITRACIN 15 GM TUBE TOPICAL OINTMENT TP SCH (09:21)
[2017-09-12] MEDS: POTASSIUM CHLORIDE ORAL LIQUID 20 MEQ/15 ML PO SCH (09:22)
[2017-09-12] MEDS: DIGOXIN 250 MCG/5 ML LIQUID PEG SCH (09:22)
[2017-09-12] MEDS: FUROSEMIDE 20 MG TABLET (FP) PEG SCH (09:22)
[2017-09-12] MEDS: APIXABAN 5 MG TABLET PO SCH (09:22)
[2017-09-12] MEDS: PANTOPRAZOLE SOD 40 MG SUSPENSION PACKET PEG SCH (09:22)
[2017-09-12] MEDS: SENNOSIDES 8.8 MG/5 ML BULK BOTTLE GT SCH (09:23)
[2017-09-12] MEDS: CEFUROXIME AXETIL 250 MG/5 ML BOTTLE PO SCH (10:00)
[2017-09-12] MEDS ORDERED: AMIODARONE HCL 200 MG TABLET (FP) GT SCH (10:00)
[2017-09-12] MEDS ORDERED: COLLAGENASE CLOSTRIDIUM HIST. 30 GRAMS TUBE TP SCH (10:00)
--- NOTE | 2017-09-12 10:55 | DS ---
Physical Examination Vital Signs: Vital Signs Temperature 99.0 F 09/12/17 09:35 Pulse Rate 66 09/12/17 09:35 Respiratory Rate 15 09/12/17 10:10 Blood Pressure 120/58 09/12/17 09:35 O2 Sat by Pulse Oximetry (%) 96 09/11/17 11:11 Constitutional: Yes: No Distress, Calm Cardiovascular: Yes: Regular Rate and Rhythm Respiratory: Yes: Diminished, Mechanically Ventilated Gastrointestinal: Yes: Normal Bowel Sounds, Soft, Other (GT). No: Tenderness Edema: Yes Edema: LLE: Trace, RLE: Trace Labs: CBC, BMP 09/12/17 07:30 09/12/17 07:30 Discharge Summary Reason For Visit: RAPID ATRIAL FIBRILLATION Current Active Problems Anoxic brain injury (Acute) Atrial fibrillation (Acute) Sacral pressure ulcer (Acute) Hospital Course: please see initial discharge summary Pt was seen by Wound care -- recommended Santyl to wounds Afebrile vitals stable stable for dc to [facility] Condition: Good - Instructions Diet, Activity, Other Instructions: Synthroid discontinued as he is now hyperthyroid-- please check TSH, Free T 4 in 1 week. Ceftin to be given 6 more days Disposition: NURSING HOME FACILITY - Home Medications Comprehensive Discharge Medication List: Ambulatory Orders Acetaminophen [Tylenol .Extra-Strength -] 500 mg GT Q6H PRN 07/31/17 Albuterol Sulfate Inhaler - [Ventolin HFA Inhaler -] 2 inh IH Q6H 07/31/17 Hypromellose 0.5% Opth Soln [Artificial Tears] 1 drop QID 07/31/17 Sennosides [Senna] 8.8 mg GT DAILY 07/31/17 Apixaban [Eliquis -] 5 mg PO BID #90 tablet 08/10/17 Metoprolol Tartrate [Lopressor -] 50 mg GT BID #60 tablet 08/10/17 Pantoprazole Suspension [Protonix Packets For Oral Suspension -] 40 mg GT DAILY #20 packet 08/10/17 Amiodarone HCl [Cordarone -] 200 mg GT BID #60 tablet 09/07/17 Cefuroxime Axetil Suspension [Ceftin Suspension -] 500 mg PO BID #14 ml Digoxin [Lanoxin -] 0.25 mg PEG DAILY #30 tablet 09/07/17 Furosemide [Lasix -] 20 mg PEG DAILY #30 tablet 09/07/17
--- NOTE | 2017-09-12 11:01 | PN ---
Progress Note, Physician Chief Complaint: Remains on vent support History of Present Illness: Patient was seen and examined. Chart was reviewed Currently in the process of being discharged back to [place] - Current Medication List Current Medications: Active Medications Acetaminophen (Tylenol Oral Solution -) 650 mg GT Q4H PRN PRN Reason: FEVER Last Admin: 09/11/17 10:11 Dose: 650 mg Albuterol Sulfate (Ventolin Hfa Inhaler -) 2 puff IH Q6H PRN PRN Reason: SHORTNESS OF BREATH Amiodarone HCl (Cordarone -) 200 mg GT DAILY [facility] Last Admin: 09/12/17 09:22 Dose: 200 mg Apixaban (Eliquis -) 5 mg PO BID [facility] Last Admin: 09/12/17 09:22 Dose: 5 mg Bacitracin (Bacitracin -) 1 applic TP DAILY [facility] Last Admin: 09/12/17 09:21 Dose: 1 applic Cefuroxime Axetil (Ceftin Oral Suspension -) 500 mg PO BID [facility] Last Admin: 09/12/17 10:00 Dose: 500 mg Collagenase (Santyl -) 1 applic TP DAILY [facility] Last Admin: 09/12/17 10:00 Dose: 1 applic Digoxin (Lanoxin Oral Solution -) 250 mcg PEG DAILY [facility] Last Admin: 09/12/17 09:22 Dose: 250 mcg Furosemide (Lasix -) 20 mg PEG DAILY [facility] Last Admin: 09/12/17 09:22 Dose: 20 mg Metoprolol Tartrate (Lopressor -) 50 mg GT TID [facility] Last Admin: 09/12/17 05:45 Dose: 50 mg Pantoprazole Sodium (Protonix Packets For Oral Suspension -) 40 mg PEG DAILY [facility] Last Admin: 09/12/17 09:22 Dose: 40 mg Potassium Chloride (Potassium Chloride Oral Liquid) 20 meq PO DAILY [facility] Last Admin: 09/12/17 09:22 Dose: 20 meq Senna (Senna Oral Solution -) 8.8 mg GT DAILY [facility] Last Admin: 09/12/17 09:23 Dose: 8.8 mg - Objective Vital Signs: Vital Signs Temperature 99.0 F 09/12/17 09:35 Pulse Rate 66 09/12/17 09:35 Respiratory Rate 15 09/12/17 10:10 Blood Pressure 120/58 09/12/17 09:35 O2 Sat by Pulse Oximetry (%) 96 09/11/17 11:11 Neck: Yes: Supple Cardiovascular: Yes: Pulse Irregular, S1, S2 Respiratory: Yes: Diminished, Mechanically Ventilated Gastrointestinal: Yes: Normal Bowel Sounds, Soft. No: Tenderness Edema: No Labs: CBC, BMP 09/12/17 07:30 09/12/17 07:30 Problem List - Problems (1) Atrial fibrillation Code(s): I48.91 - UNSPECIFIED ATRIAL FIBRILLATION Qualifiers: Atrial fibrillation type: persistent Qualified Code(s): I48.1 - Persistent atrial fibrillation (2) Mitral valve prolapse Code(s): I34.1 - NONRHEUMATIC MITRAL (VALVE) PROLAPSE (3) Chronic respiratory failure Code(s): J96.10 - CHRONIC RESPIRATORY FAILURE, UNSP W HYPOXIA OR HYPERCAPNIA Qualifiers: Respiratory failure complication: unspecified whether with hypoxia or hypercapnia Qualified Code(s): J96.10 - Chronic respiratory failure, unspecified whether with hypoxia or hypercapnia (4) Quadriplegia, functional Code(s): R53.2 - FUNCTIONAL QUADRIPLEGIA (5) Rheumatic heart disease Code(s): I09.9 - RHEUMATIC HEART DISEASE, UNSPECIFIED (6) Sepsis Code(s): A41.9 - SEPSIS, UNSPECIFIED ORGANISM Qualifiers: Sepsis type: sepsis due to unspecified organism Qualified Code(s): A41.9 - Sepsis, unspecified organism (7) Tracheostomy tube present Code(s): Z93.0 - TRACHEOSTOMY STATUS Assessment/Plan 1. Persistent atrial fibrillation with periods of rapid ventricular response ( improved) [id number] score of 0-1 on DOAC (Eliquis) 2. Chronic respiratory failure ventilator dependent/tracheostomy, acute exacerbation pneumonia 3. Congestive heart failure related to diastolic LV dysfunction, resolving 4. Anoxic encephalopathy/history of anoxic brain injury 5. History of cardiac arrest 6. History of substance abuse 7. Anemia 8. Hypothyroidism 9. Functional Quadriplegia 10. UTI PLAN: 1. Continue Eliquis 5 bid 2. Continue Lopressor 50 tid 3. Continue Amiodarone 200 mg daily 4. Continue Digoxin 0.25 qd with caution and close monitoring of level 5. Continue Lasix 20 qd with close monitoring of renal function and electrolytes Present therapy Discharge planning Brian Boyer MD
--- NOTE | 2017-09-12 11:43 | PN ---
Progress Note (short form) - Note Progress Note: PULMONARY Vented, poorly responsive. Last Vital Signs Temp Pulse Resp BP Pulse Ox 99.0 F 66 15 120/58 100 09/12/17 09:35 09/12/17 09:35 09/12/17 10:10 09/12/17 09:35 09/12/17 10:00 Gen: vented, poorly responsive Heart: irregular Lung: decreased breath sounds at the bases Abd: soft, nontender Ext: no edema CBC, BMP 09/12/17 07:30 09/12/17 07:30 Active Medications Acetaminophen (Tylenol Oral Solution -) 650 mg GT Q4H PRN PRN Reason: FEVER Last Admin: 09/11/17 10:11 Dose: 650 mg Albuterol Sulfate (Ventolin Hfa Inhaler -) 2 puff IH Q6H PRN PRN Reason: SHORTNESS OF BREATH Amiodarone HCl (Cordarone -) 200 mg GT DAILY [facility] Last Admin: 09/12/17 09:22 Dose: 200 mg Apixaban (Eliquis -) 5 mg PO BID [facility] Last Admin: 09/12/17 09:22 Dose: 5 mg Bacitracin (Bacitracin -) 1 applic TP DAILY [facility] Last Admin: 09/12/17 09:21 Dose: 1 applic Cefuroxime Axetil (Ceftin Oral Suspension -) 500 mg PO BID [facility] Last Admin: 09/12/17 10:00 Dose: 500 mg Collagenase (Santyl -) 1 applic TP DAILY [facility] Last Admin: 09/12/17 10:00 Dose: 1 applic Digoxin (Lanoxin Oral Solution -) 250 mcg PEG DAILY [facility] Last Admin: 09/12/17 09:22 Dose: 250 mcg Furosemide (Lasix -) 20 mg PEG DAILY [facility] Last Admin: 09/12/17 09:22 Dose: 20 mg Metoprolol Tartrate (Lopressor -) 50 mg GT TID [facility] Last Admin: 09/12/17 05:45 Dose: 50 mg Pantoprazole Sodium (Protonix Packets For Oral Suspension -) 40 mg PEG DAILY [facility] Last Admin: 09/12/17 09:22 Dose: 40 mg Potassium Chloride (Potassium Chloride Oral Liquid) 20 meq PO DAILY [facility] Last Admin: 09/12/17 09:22 Dose: 20 meq Senna (Senna Oral Solution -) 8.8 mg GT DAILY [facility] Last Admin: 09/12/17 09:23 Dose: 8.8 mg A/P Chronic Respiratory Failure Atrial Fibrillation with RVR Pneumonia Anoxic Encephalopathy Hypothyroidism Functional Quadriplegia - rate controlled - continue anticoagulation - continue antibiotics - continue volume assist control - poor candidate for weaning at this time - enteral feeds - DVT/GI prophylaxis - d/c planning in progress
[2017-09-12] MEDS: ACETAMINOPHEN 650 MG/20.3 ML ORAL SOLUTION (CUPS) GT PRN (14:05)
[2017-09-12 14:54] VITALS: BP 123/65; PULSE 70; TEMP 99.6
== END 2017-09-12 16:45 | DRG 870 ==
LOC: JER 11:35 → JERBED 16:13 → JICU 22:01 → J5S 09-07 06:37
PROVIDERS: ADMIT Internal Medicine; ATTEND Internal Medicine
PROC: 5A1955Z Respiratory Ventilation, Greater than 96 Consecutive Hours (ICD-10-PCS; principal; 2017-08-30)
DX: A41.9 Sepsis, unspecified organism (principal); L89.614 Pressure ulcer of right heel, stage 4; R53.2 Functional quadriplegia; J18.9 Pneumonia, unspecified organism; J96.10 Chronic respiratory failure, unspecified whether with hypoxia or hypercapnia; G93.1 Anoxic brain damage, not elsewhere classified; Z99.11 Dependence on respirator [ventilator] status; N39.0 Urinary tract infection, site not specified; J98.11 Atelectasis; I42.9 Cardiomyopathy, unspecified; T83.020A Displacement of cystostomy catheter, initial encounter; I48.91 Unspecified atrial fibrillation; I34.1 Nonrheumatic mitral (valve) prolapse; E03.9 Hypothyroidism, unspecified; Z93.0 Tracheostomy status; D64.9 Anemia, unspecified; B96.4 Proteus (mirabilis) (morganii) as the cause of diseases classified elsewhere; E87.6 Hypokalemia; L89.159 Pressure ulcer of sacral region, unspecified stage; Y83.9 Surgical procedure, unspecified as the cause of abnormal reaction of the patient, or of later complication, without mention of misadventure at the time of the procedure
CPT/HCPCS: 36415; 51102; 71045-TC-FY; 76000-TC-FY; 76098-TC-FY; 80048; 80053; 80162; 81003; 81015; 82803; 83605; 83735; 84100; 84439; 84443; 84484; 85025; 85027; 85610; 85730; 87040; 87070; 87077; 87086; 87186; 87205; 87899; 93005; 93010; 93306-TC; 94002; 99283-25; J7030

== ENCOUNTER 2017-10-24 12:38 | Inpatient (IN) | payer OTHER ==
--- NOTE | 2017-10-24 14:41 | PDOC ---
History of Present Illness - General Chief Complaint: Urinary Problem Stated Complaint: Urinary Catheter Problem Time Seen by Provider: 10/24/17 13:59 History Source: Old Records Exam Limitations: Unresponsive (Anoxic brain injury) - History of Present Illness Initial Comments: 10/24/17 14:35 62 yo male, pmh of anoxic brain injury (non responsive to pain), respiratory failure (trach and vented 400 tidal vol, rate of 12, peep of 5), quadriplegia, seizures, hep c, UTI, sepsis and sacral ulcers presents to ED from [facility] after pulling out his Boucher. Pt has DNR. Pt unresponsive and no further subjective HPI attainable at this point. Timing/Duration: unsure Past History - Past Medical History Allergies/Adverse Reactions: Allergies Allergy/AdvReac Type Severity Reaction Status Date / Time No Known Allergies Allergy Verified 10/24/17 13:52 Home Medications: Ambulatory Orders Acetaminophen [Tylenol .Extra-Strength -] 500 mg GT Q6H PRN 07/31/17 Hypromellose 0.5% Opth Soln [Artificial Tears] 1 drop OU QID 07/31/17 Sennosides [Senna] 10 ml GT HS 07/31/17 Metoprolol Tartrate [Lopressor -] 50 mg GT BID #60 tablet 08/10/17 Acidoph/L.bulg/Bif.b/S.thermop [Bacid Caplet] 1 each GT BID 10/24/17 Albuterol 0.083% Nebulizer Nora [Ventolin 0.083%] 1 neb NEB Q4H PRN 10/24/17 Amiodarone HCl [Cordarone -] 200 mg GT DAILY 10/24/17 Apixaban [Eliquis -] 5 mg GT BID 10/24/17 Cefepime in Iso-Osm Dextrose [Cefepime 1 gm Injection] 1 gm IV Q8H 10/24/17 Clotrimazole [Lotrimin 1% Cream -] 1 applic TP BID 10/24/17 Clotrimazole/Betamet Diprop [Lotrisone Cream (Small Tube)] 1 applic TP DAILY PRN 10/24/17 Collagenase Clostridium Hist. [Santyl -] 1 applic TP TID PRN 10/24/17 Digoxin [Lanoxin -] 0.25 mg GT DAILY 10/24/17 Furosemide [Lasix -] 20 mg GT DAILY 10/24/17 Potassium Chloride [Potassium Chloride Oral Liquid] 20 meq GT DAILY 10/24/17 Tolnaftate 1% Powder [Tinactin] 1 applic TP BID PRN 10/24/17 Zinc Oxide 20% Topical Oint 454 gm NR BID PRN 10/24/17 Anemia: Yes Asthma: No Cancer: Yes (malignant neoplasm of penis, scrotum,) Cardiac Disorders: Yes (RHEUMATIC MITRAL VALVE DISEASE, atrial fibrillation) CVA: No COPD: Yes CHF: No Dementia: No Diabetes: No GI Disorders: Yes (gerd) Disorders: No HTN: Yes Hypercholesterolemia: No Kidney Stones: No Liver Disease: No Seizures: Yes (drug related seizure 12/2012) Thyroid Disease: Yes (HYPOTHYROID) Other medical history: tinea corpus, dvt silva - Surgical History Abdominal Surgery: No Appendectomy: No Cardiac Surgery: No Cholecystectomy: No Lung Surgery: No Neurologic Surgery: No Orthopedic Surgery: No - Reproductive History Testicular Surgery: No - Suicide/Smoking/Psychosocial Hx Smoking History: Never smoked Have you smoked in the past 12 months: No If you are a former smoker, when did you quit?: 9 years ago Information on smoking cessation initiated: No Hx Alcohol Use: No Drug/Substance Use Hx: No Substance Use Type: None Hx Substance Use Treatment: Yes ([facility]) Review of Systems - Review of Systems Able to Perform ROS?: No (unresponsive ) *Physical Exam - Vital Signs Last Vital Signs Temp Pulse Resp BP Pulse Ox 101.0 F H 110 H 23 138/94 95 10/24/17 12:38 10/24/17 12:38 10/24/17 13:06 10/24/17 12:38 10/24/17 12:38 - Physical Exam General Appearance: Yes: Apparent Distress HEENT: negative: EOMI, DEAN (pupils dilated and sluggish ), Scleral Icterus (R) , Scleral Icterus (L) Respiratory/Chest: negative: Lungs Clear Cardiovascular: negative: Regular Rhythm (tachy ) Vascular Pulses: Dorsalis-Pedis (R): 4+, Doralis-Pedis (L): 4+ Gastrointestinal/Abdominal: positive: Normal Bowel Sounds. negative: Pulsatile Mass, Distended Male Genitalia: positive: other (condyloma. Suprapubic catheter displaced) Rectal Exam: positive: other (101 temp) Musculoskeletal: positive: Other (bilateral lower leg edema ). negative: Normal Inspection Extremity: positive: Swelling (bilateral lower leg) Integumentary: positive: Clammy Neurologic: positive: Other (unresponsive to pain) ED Treatment Course - LABORATORY CBC & Chemistry Diagram: 10/24/17 Unknown 10/24/17 15:45 - RADIOLOGY Radiology Studies Ordered: Category Date Time Status CHEST X-RAY PORTABLE* [RAD] Stat Radiology 10/24/17 14:29 Ordered Medical Decision Making - Medical Decision Making 10/24/17 15:30 Spoke with [facility] high fevers since Monday, displaced urinary catheter new redness on legs and abdomen, Doppler negative Currently at baseline cepha 1 gram 24 hours TID UTI Sees Dr. Esteban at [facility] 10/24/17 15:47 Dr. Suhail Burgess placed a suprapubic catheter successfully on 08/30/17 Will continue to treat UTI and admit pt to the floor. IR consult with Dr. Burgess after admission since the catheter is currently draining urine. 10/24/17 16:[address] Curiel from [facility] who advises to start 1 gram of Merop Q8 and 350mg of Gent one time dose 10/24/17 17:25 Spoke with Sujey and agrees to acept pt to med surg floor under Dr. Sheppard (P) *DC/Admit/Observation/Transfer Diagnosis at time of Disposition: UTI (urinary tract infection) - Discharge Dispostion Condition at time of disposition: Stable Decision to Admit order: Yes - Referrals Referrals: Lashawn Boucher MD [Staff Physician] - Robert Curiel MD [Staff Physician] - - Patient Instructions - Post Discharge Activity
[2017-10-24 15:13] LABS: BASO % 0.2 % (0-2.0); EOS % 3.9 % (0-4.5); HEMATOCRIT 29.9 % (35.4-49); HEMOGLOBIN 10.1 GM/dL (11.7-16.9); LYMPH % 6.4 % (8-40); MCHC 33.9 g/dl (32.0-35.9); MEAN CELL VOLUME 97.3 fl (80-96); MEAN PLT VOLUME 11.8 fl (7.5-11.1); MONO % 4.2 % (3.8-10.2); NEUT % 85.3 % (42.8-82.8); PLATELET COUNT 149 K/MM3 (134-434); RBC 3.08 M/mm3 (4.00-5.60); RDW 15.5 % (11.9-15.9); WHITE BLOOD COUNT 10.5 K/mm3 (4.0-10.0)
[2017-10-24 15:13] LABS: VENOUS PH 7.44 (7.32-7.42)
[2017-10-24 15:14] LABS: VENOUS PO2 37.2 mmHg (28-48)
[2017-10-24 15:20] LABS: URINE APPEARANCE SLCLOUDY; URINE BILIRUBIN NEGATIVE (<2.0 mg/dL); URINE COLOR YELLOW; URINE GLUCOSE (UA) NEGATIVE (NEGATIVE); URINE KETONE NEGATIVE (NEGATIVE); URINE NITRITE NEGATIVE (NEGATIVE); URINE UROBILINOGEN NEGATIVE mg/dL (0.2-1.0)
[2017-10-24 15:30] LABS: URINE LEUK ESTERASE 3+ (NEGATIVE); URINE PROTEIN 1+ (NEGATIVE)
[2017-10-24 15:30] LABS: INR 1.28 (0.82-1.09); PROTHROMBIN TIME (PATIENT) 14.5 SEC (9.7-13.0)
[2017-10-24 15:33] LABS: ACTIVATED PTT 35.1 SECONDS (25.2-36.5)
[2017-10-24 15:35] LABS: CALCIUM OXALATE CRYSTALS FEW /hpf (NONE SEEN)
[2017-10-24 16:04] LABS: ALBUMIN 2.5 g/dl (3.4-5.0); ALK PHOS 62 U/L (45-117); ANION GAP 7 (8-16); BILIRUBIN,TOTAL 0.4 mg/dL (0.2-1.0); BLOOD UREA NITROGEN 30 mg/dL (7-18); CALCIUM 8.7 mg/dL (8.5-10.1); CHLORIDE 102 mmol/L (98-107); CO2 32 mmol/L (21-32); CREATININE 0.7 mg/dL (0.7-1.3); GLUCOSE,RANDOM 112 mg/dL (74-106); SGPT/ALT 27 U/L (12-78); SODIUM 141 mmol/L (136-145); TOT PROT 6.6 g/dl (6.4-8.2)
[2017-10-24] MEDS ORDERED: ACETAMINOPHEN 1000 MG/100 ML VIAL (NON FORMULARY) IVPB ONE (16:04)
[2017-10-24] MEDS ORDERED: ACETAMINOPHEN INJECTION 100 ML IVPB ONE (16:06)
[2017-10-24 16:08] LABS: POTASSIUM 4.5 mmol/L (3.5-5.1)
[2017-10-24 16:09] LABS: SGOT/AST 24 U/L (15-37)
--- NOTE | 2017-10-24 16:29 | PDOC ---
Attending Attestation - Resident Resident Name: Raj Peterson - ED Attending Attestation I have performed the following: I have examined & evaluated the patient, The case was reviewed & discussed with the resident, I agree w/resident's findings & plan, Exceptions are as noted - HPI HPI: 10/24/17 16:23 62 M with h/o anoxic brain injury, trached, seizure d/o, HCV, recurrent UTI, presenting to ED for fevers. Pt unable to contribute history. Per [facility] staff, pt has been on meropenem for UTI but has still been spiking fevers. Of note, today pt's suprapubic cath was slightly dislodged but did not come out completely. Staff was able to replace it, and it continues to drain urine. - Physicial Exam PE: 10/24/17 16:29 "GENERAL: NAD HEAD: No signs of trauma EYES: PERRLA, EOMI, sclera anicteric, conjunctiva clear ENT: Auricles normal inspection, nares patent, oropharynx clear without exudates. Moist mucosa NECK: Nontender, no stepoffs, Normal ROM, supple, no lymphadenopathy, JVD, or masses LUNGS: Breath sounds equal, clear to auscultation bilaterally. No wheezes, and no crackles HEART: Regular rate and rhythm, normal S1 and S2, no murmurs, rubs or gallops ABDOMEN: Soft, nontender, normoactive bowel sounds. No guarding, no rebound. No masses EXTREMITIES: No clubbing or cyanosis. No cords, erythema, or tendernessation in all extremities, Normal speech, normal gait, normal cerebellar function SKIN: Warm, Dry, normal turgor, no rashes or lesions noted. " - Medical Decision Making 10/24/17 16:29 62 M presenting with fever and tachycardia from [place]. Likely urinary source. Pt has suprapubic cath in place draining cloudy urine. - Labs, cultures - IVF, tylenol, abx Labs notable for UTI. Will consult ID for recs. Dr. Giron's service paged. Will admit to hospitalist
[2017-10-24] MEDS ORDERED: GENTAMICIN INJECTION 350 MG in SODIUM CHLORIDE 100 ML IVPB ONE (16:52)
--- NOTE | 2017-10-24 17:18 | HP ---
CHIEF COMPLAINT: Fever PCP: HISTORY OF PRESENT ILLNESS: 62 year-old male, resident of [facility], with a PMH significant for HTN, atrial fibrillation, heart failure, anoxic brain injury, respiratory failure post trach and PEG, chronic suprapubic catheter with recurrent UTIs, functional quadriplegia, seizures, Hep C, genital condylomata, chronic pressure ulcers, hypothyroidism. ER course was notable for: (1) Tm 101.0, pulse 110, pyuria Recent Travel: No PAST MEDICAL HISTORY: Hypertension Systolic heart failure Anoxic brain injury Respiratory failure on vent Recurrent UTIs Quadriplegia Seizures Hepatitis C Hypothyroidism Genital condylomata PAST SURGICAL HISTORY: Tracheostomy Suprapubic catheter Social History: Smoking: no Alcohol: no Drugs: no Family History: long-term resident of [facility] Allergies No Known Allergies Allergy (Verified 10/24/17 13:52) HOME MEDICATIONS: Home Medications Medication Instructions Recorded Acetaminophen [Tylenol 500 mg GT Q6H PRN 07/31/17 .Extra-Strength -] Hypromellose 0.5% Opth Soln 1 drop OU QID 07/31/17 [Artificial Tears] Sennosides [Senna] 10 ml GT HS 07/31/17 Metoprolol Tartrate [Lopressor -] 50 mg GT BID #60 tablet 08/10/17 Acidoph/L.bulg/Bif.b/S.thermop 1 each GT BID 10/24/17 [Bacid Caplet] Albuterol 0.083% Nebulizer Nora 1 neb NEB Q4H PRN 10/24/17 [Ventolin 0.083%] Amiodarone HCl [Cordarone -] 200 mg GT DAILY 10/24/17 Apixaban [Eliquis -] 5 mg GT BID 10/24/17 Cefepime in Iso-Osm Dextrose 1 gm IV Q8H 10/24/17 [Cefepime 1 gm Injection] Clotrimazole [Lotrimin 1% Cream -] 1 applic TP BID 10/24/17 Clotrimazole/Betamet Diprop 1 applic TP DAILY PRN 10/24/17 [Lotrisone Cream (Small Tube)] Collagenase Clostridium Hist. 1 applic TP TID PRN 10/24/17 [Santyl -] Digoxin [Lanoxin -] 0.25 mg GT DAILY 10/24/17 Furosemide [Lasix -] 20 mg GT DAILY 10/24/17 Potassium Chloride [Potassium 20 meq GT DAILY 10/24/17 Chloride Oral Liquid] Tolnaftate 1% Powder [Tinactin] 1 applic TP BID PRN 10/24/17 Zinc Oxide 20% Topical Oint 454 gm NR BID PRN 10/24/17 REVIEW OF SYSTEMS: UNABLE TO OBTAIN PHYSICAL EXAMINATION Vital Signs Temperature 101.0 F H 10/24/17 12:38 Pulse Rate 101 H 10/24/17 17:05 Respiratory Rate 16 10/24/17 17:05 Blood Pressure 114/72 10/24/17 17:05 O2 Sat by Pulse Oximetry (%) 100 10/24/17 17:05 GENERAL: Awake. Does not follow commands. Withdraws to physical stimuli. Trach connected to vent. LUNGS: Rhonchorous breath sounds, mild expiratory wheezing. HEART: Regular rate and rhythm, normal S1 and S2 ABDOMEN: Soft, nontender, not distended. PEG tube in place, surrounding skin intact. : ~10cm area of condylomata overlying penis/scrotum UPPER EXTREMITIES: 2+ pulses, warm, well-perfused. No cyanosis. No clubbing. No peripheral edema. RLE: venous stasis changes, 3+ pitting edema LLE: venous stasis changes, trace edema SKIN: generalized rash over both lower extremities Laboratory Results - last 24 hr 10/24/17 10/24/17 10/24/17 14:33 14:38 15:00 WBC RBC Hgb Hct MCV MCH MCHC RDW Plt Count MPV Absolute Neuts (auto) Neutrophils % Lymphocytes % Monocytes % Eosinophils % Basophils % Nucleated RBC % PT with INR INR PTT (Actin FS) VBG pH 7.44 H POC VBG pCO2 48.0 POC VBG pO2 37.2 Mixed VBG HCO3 32.6 H Sodium Potassium Chloride Carbon Dioxide Anion Gap BUN Creatinine Creat Clearance w eGFR Random Glucose Lactic Acid 1.2 Calcium Total Bilirubin AST ALT Alkaline Phosphatase Troponin I Total Protein Albumin Urine Color Yellow Urine Appearance Slcloudy Urine pH 7.0 Ur Specific Onset 1.018 Urine Protein 1+ H Urine Glucose (UA) Negative Urine Ketones Negative Urine Blood Negative Urine Nitrite Negative Urine Bilirubin Negative Urine Urobilinogen Negative Ur Leukocyte Esterase 3+ H Urine WBC (Auto) 29 Urine RBC (Auto) None Calcium Oxalate Crystal Few 10/24/17 10/24/17 10/24/17 15:45 Unknown Unknown WBC 10.5 H RBC 3.08 L Hgb 10.1 L Hct 29.9 L MCV 97.3 H MCH 33.0 MCHC 33.9 RDW 15.5 Plt Count 149 MPV 11.8 H D Absolute Neuts (auto) 9.0 Neutrophils % 85.3 H D Lymphocytes % 6.4 L D Monocytes % 4.2 Eosinophils % 3.9 Basophils % 0.2 Nucleated RBC % 0 PT with INR 14.50 H INR 1.28 H PTT (Actin FS) 35.1 VBG pH POC VBG pCO2 POC VBG pO2 Mixed VBG HCO3 Sodium 141 Potassium 4.5 Chloride 102 Carbon Dioxide 32 Anion Gap 7 L BUN 30 H Creatinine 0.7 Creat Clearance w eGFR > 60 Random Glucose 112 H Lactic Acid Calcium 8.7 Total Bilirubin 0.4 AST 24 D ALT 27 D Alkaline Phosphatase 62 Troponin I < 0.02 Total Protein 6.6 Albumin 2.5 L Urine Color Urine Appearance Urine pH Ur Specific Onset Urine Protein Urine Glucose (UA) Urine Ketones Urine Blood Urine Nitrite Urine Bilirubin Urine Urobilinogen Ur Leukocyte Esterase Urine WBC (Auto) Urine RBC (Auto) Calcium Oxalate Crystal ASSESSMENT/PLAN 62 year-old male, resident of [facility], with a PMH significant for HTN, atrial fibrillation, heart failure, anoxic brain injury, respiratory failure post trach and PEG, chronic suprapubic catheter with recurrent UTIs, functional quadriplegia, seizures, Hep C, genital condylomata, chronic pressure ulcers, hypothyroidism. UTI --Tm 101.0, pyuria --pulse 110 but h/o afib so may not be attributable to infection; does not meet sepsis criteria at this time --meropenem 1g q8h --gent x 1 dose in ED --ID following Displaced suprapubic catheter --catheter pulled away ~2cm from broken sutures but continues to drain urine --IR consult requested Hypertension --BP stable --continue metoprolol Atrial fibrillation --continue metoprolol, digoxin (level therapeutic) --continue Eliquis Heart failure --continue home dose lasix and K supplement Hypothyroidism --08/31/17 TSH 5.94 --repeat pending Functional quadriplegia --anoxic brain injury, respiratory failure, trach, PEG --dependent for all ADLs Seizures --stable, not on AEDs Genital condylomata Chronic pressure ulcers --daily collagenase FEN Fluids: via PEG Electrolytes: replete as indicated Nutrition: Jevity 1.5 goal 60mL/hr; water flushes 35mL/hr; Prosource BID DVT prophylaxis: hold chemical prophylaxis for possible IR procedure; SCDs Dispo: continues to require inpatient care. DNR/DNI. Visit type - Emergency Visit Emergency Visit: Yes ED Registration Date: 10/24/17 Care time: The patient presented to the Emergency Department on the above date and was hospitalized for further evaluation of their emergent condition. - New Patient This patient is new to me today: Yes Date on this admission: 10/24/17 - Critical Care Critical Care patient: No Hospitalist Screening - Colonoscopy Questionnaire Colonoscopy Questionnaire: Colonoscopy Questionnaire - Patient: 50 - 75 years old and never had a screening colonoscopy: Unknown History of colon or rectal polyps, or CA: Unknown History of IBD, Crohn's disease or UC: Unknown History of abdominal radiation therapy as a child: Unknown - Relative: 1 with colon or rectal CA, or polyps at age 60 or younger: Unknown Colon or rectal CA diagnosed at age 45 or younger: Unknown Multiple relatives with colon or rectal CA: Unknown - Outcome: Screening Result: Negative Screen
[2017-10-24] MEDS ORDERED: GENTAMICIN IVPB ONE (17:30)
[2017-10-24] MEDS ORDERED: SODIUM CHLORIDE IVPB ONE (17:30)
[2017-10-24] MEDS ORDERED: COLLAGENASE CLOSTRIDIUM HIST. 30 GRAMS TUBE TP PRN (17:32)
[2017-10-24] MEDS ORDERED: ALBUTEROL SO4 0.083% IH SOL 2.5 MG/3 ML VIAL.NEB. NEB PRN (17:55)
[2017-10-24] MEDS ORDERED: MEROPENEM 1 GM in DEXTROSE 5%-WATER 100 ML IVPB SCH (18:00)
[2017-10-24] MEDS: ARTIFICIAL TEARS (POLYVINYL ALCOHOL 1.4%) OPTH DROPS OU SCH (18:03)
[2017-10-24] MEDS: MEROPENEM 1 GM in DEXTROSE 5%-WATER 100 ML IVPB SCH (18:03)
--- NOTE | 2017-10-24 21:41 | EKG ---
Test Reason : Blood Pressure : / mmHG Vent. Rate : 114 BPM Atrial Rate : 150 BPM P-R Int : 000 ms QRS Dur : 096 ms QT Int : 328 ms P-R-T Axes : 000 -39 116 degrees QTc Int : 452 ms ATRIAL FIBRILLATION WITH RAPID VENTRICULAR RESPONSE LEFT AXIS DEVIATION NONSPECIFIC ST AND T WAVE ABNORMALITY ABNORMAL ECG WHEN COMPARED WITH ECG OF 30-AUG-2017 13:13, NO SIGNIFICANT CHANGE WAS FOUND Confirmed by MD LORELEI, JOHN ([id number]) on 10/24/2017 9:41:00 PM Referred By: Confirmed By:JOHN MOSELEY MD
[2017-10-24] MEDS ORDERED: PT OWN MED DRAWER 7, Y5N ONE (22:43)
[2017-10-24 23:51] VITALS: BMI 26.2
[2017-10-25] MEDS: SENNOSIDES 8.8 MG/5 ML BULK BOTTLE GT SCH ×2 (00:02→22:35)
[2017-10-25] MEDS: METOPROLOL TARTRATE 50 MG TABLET (FP) GT SCH ×3 (00:02→22:35)
[2017-10-25] MEDS: APIXABAN 5 MG TABLET PO SCH ×3 (00:02→22:34)
[2017-10-25] MEDS: LACTOBACILLUS ACIDOPHILUS 1 TABLET GT SCH ×3 (00:02→22:35)
[2017-10-25] MEDS: ARTIFICIAL TEARS (POLYVINYL ALCOHOL 1.4%) OPTH DROPS OU SCH ×5 (00:03→22:35)
[2017-10-25] MEDS: MEROPENEM 1 GM in DEXTROSE 5%-WATER 100 ML IVPB SCH ×2 (02:04→11:22)
[2017-10-25 07:06] LABS: BASO % 0.3 % (0-2.0); EOS % 8.5 % (0-4.5); HEMATOCRIT 27.6 % (35.4-49); HEMOGLOBIN 9.5 GM/dL (11.7-16.9); LYMPH % 9.7 % (8-40); MCH 33.4 pg (25.7-33.7); MCHC 34.3 g/dl (32.0-35.9); MEAN CELL VOLUME 97.2 fl (80-96); MEAN PLT VOLUME 10.9 fl (7.5-11.1); MONO % 5.7 % (3.8-10.2); NEUT % 75.8 % (42.8-82.8); PLATELET COUNT 142 K/MM3 (134-434); RBC 2.84 M/mm3 (4.00-5.60); RDW 15.4 % (11.9-15.9); WHITE BLOOD COUNT 8.3 K/mm3 (4.0-10.0)
[2017-10-25 07:37] LABS: ALBUMIN 2.2 g/dl (3.4-5.0); ALK PHOS 56 U/L (45-117); ANION GAP 6 (8-16); BILIRUBIN,TOTAL 0.4 mg/dL (0.2-1.0); BLOOD UREA NITROGEN 26 mg/dL (7-18); CALCIUM 8.5 mg/dL (8.5-10.1); CHLORIDE 104 mmol/L (98-107); CO2 33 mmol/L (21-32); CREATININE 0.6 mg/dL (0.7-1.3); GLUCOSE,RANDOM 155 mg/dL (74-106); MAGNESIUM 2.3 mg/dL (1.8-2.4); POTASSIUM 4.1 mmol/L (3.5-5.1); SGOT/AST 17 U/L (15-37); SGPT/ALT 24 U/L (12-78); SODIUM 143 mmol/L (136-145); TOT PROT 5.9 g/dl (6.4-8.2)
[2017-10-25] MEDS: AMIODARONE HCL 200 MG TABLET (FP) GT SCH (09:09)
[2017-10-25] MEDS: FUROSEMIDE 20 MG TABLET (FP) GT SCH (09:12)
[2017-10-25] MEDS: AMINO ACIDS/PROTEIN HYDROLYS 30 ML LIQUID.PKT PO SCH ×2 (09:12→16:46)
[2017-10-25] MEDS: POTASSIUM CHLORIDE ORAL LIQUID 20 MEQ/15 ML GT SCH (09:12)
[2017-10-25] MEDS: CLOTRIMAZOLE/BETAMET DIPROP 15 GM TUBE TP PRN (09:21)
[2017-10-25] MEDS: COLLAGENASE CLOSTRIDIUM HIST. 30 GRAMS TUBE TP SCH (09:22)
[2017-10-25] MEDS ORDERED: DIGOXIN 0.25 MG TABLET (FP) GT SCH (10:00)
--- NOTE | 2017-10-25 11:45 | EKG ---
Test Reason : Blood Pressure : / mmHG Vent. Rate : 121 BPM Atrial Rate : 061 BPM P-R Int : 000 ms QRS Dur : 096 ms QT Int : 282 ms P-R-T Axes : 000 -36 115 degrees QTc Int : 400 ms ATRIAL FIBRILLATION WITH RAPID VENTRICULAR RESPONSE LEFT AXIS DEVIATION ABNORMAL ECG WHEN COMPARED WITH ECG OF 24-OCT-2017 15:13, NO SIGNIFICANT CHANGE WAS FOUND Confirmed by MARLON MICHAEL MD ([id number]) on 10/25/2017 11:45:05 AM Referred By: Confirmed By:MARLON MICHAEL MD
--- NOTE | 2017-10-25 11:50 | PN ---
Progress Note, Physician Chief Complaint: Pt known to mew from previous admission Awake Poorly responsive - Current Medication List Current Medications: Active Medications Acetaminophen (Tylenol Oral Solution -) 500 mg GT Q6H PRN PRN Reason: PAIN Albuterol Sulfate (Ventolin 0.083% Nebulizer Soln -) 1 amp NEB Q4H PRN PRN Reason: SHORT OF BREATH/WHEEZING Amino Acids (Prosource No Carb Liquid Pkt) 30 ml PO BID@0800,1730 [facility] Last Admin: 10/25/17 09:12 Dose: 30 ml Amiodarone HCl (Cordarone -) 200 mg GT DAILY [facility] Last Admin: 10/25/17 09:09 Dose: 200 mg Apixaban (Eliquis -) 5 mg PO BID [facility] Last Admin: 10/25/17 09:11 Dose: 5 mg Artificial Tears (Artificial Tears) 1 drop OU QID [facility] Last Admin: 10/25/17 09:22 Dose: 1 drop Clotrimazole (Lotrisone Cream (Small Tube)) 1 applic TP DAILY PRN PRN Reason: AFTER CARE Q SHIFT Last Admin: 10/25/17 09:21 Dose: 1 applic Collagenase (Santyl -) 1 applic TP DAILY [facility]; Protocol Last Admin: 10/25/17 09:22 Dose: 1 applic Digoxin (Lanoxin -) 0.25 mg GT DAILY [facility] Furosemide (Lasix -) 20 mg GT DAILY [facility] Last Admin: 10/25/17 09:12 Dose: 20 mg Meropenem 1 gm/ Dextrose 100 mls @ 200 mls/hr IVPB Q8H-IV JESUS Lactobacillus Acidophilus (Bacid -) 1 tab GT BID [facility] Last Admin: 10/25/17 09:10 Dose: 1 tab Metoprolol Tartrate (Lopressor -) 50 mg GT BID [facility] Last Admin: 10/25/17 09:11 Dose: 50 mg Potassium Chloride (Potassium Chloride Oral Liquid) 20 meq GT DAILY [facility] Last Admin: 10/25/17 09:12 Dose: 20 meq Senna (Senna Oral Solution -) 17.6 mg GT HS [facility] Last Admin: 10/25/17 00:02 Dose: 17.6 mg - Objective Vital Signs: Vital Signs Temperature 99.1 F 10/25/17 06:00 Pulse Rate 85 10/25/17 06:00 Respiratory Rate 19 10/25/17 11:15 Blood Pressure 114/50 10/25/17 06:00 O2 Sat by Pulse Oximetry (%) 35 L 10/24/17 20:27 Constitutional: Yes: No Distress Cardiovascular: Yes: Regular Rate and Rhythm Respiratory: Yes: Diminished, Mechanically Ventilated Gastrointestinal: Yes: Normal Bowel Sounds, Soft. No: Tenderness Edema: No Labs: CBC, BMP 10/25/17 06:30 10/25/17 06:30 INR, PTT INR 1.28 (0.82-1.09) H 10/24/17 Unknown Problem List - Problems (1) UTI (urinary tract infection) Code(s): N39.0 - URINARY TRACT INFECTION, SITE NOT SPECIFIED (2) Anoxic brain injury Code(s): G93.1 - ANOXIC BRAIN DAMAGE, NOT ELSEWHERE CLASSIFIED (3) Atrial fibrillation Code(s): I48.91 - UNSPECIFIED ATRIAL FIBRILLATION Qualifiers: Atrial fibrillation type: persistent Qualified Code(s): I48.1 - Persistent atrial fibrillation (4) Chronic respiratory failure Code(s): J96.10 - CHRONIC RESPIRATORY FAILURE, UNSP W HYPOXIA OR HYPERCAPNIA Qualifiers: Respiratory failure complication: unspecified whether with hypoxia or hypercapnia Qualified Code(s): J96.10 - Chronic respiratory failure, unspecified whether with hypoxia or hypercapnia (5) Condylomata acuminata in male Code(s): A63.0 - ANOGENITAL (VENEREAL) WARTS (6) Quadriplegia, functional Code(s): R53.2 - FUNCTIONAL QUADRIPLEGIA (7) Sepsis Code(s): A41.9 - SEPSIS, UNSPECIFIED ORGANISM Qualifiers: Sepsis type: sepsis due to unspecified organism Qualified Code(s): A41.9 - Sepsis, unspecified organism (8) UTI (urinary tract infection) Code(s): N39.0 - URINARY TRACT INFECTION, SITE NOT SPECIFIED Qualifiers: Urinary tract infection type: site unspecified Hematuria presence: without hematuria Qualified Code(s): N39.0 - Urinary tract infection, site not specified Assessment/Plan PLAN Received Gentamicin and Meropenum in ER ID consult Urine cultures sent IR eval for Suprapubic catheter replacement continue with meds Rate is controlled Pulmonary eval for ventilator
--- NOTE | 2017-10-25 12:57 | PN ---
Progress Note (short form) - Note Progress Note: PULMONARY CONSULTATION DICTATED 10/25/17 IMP CHRONIC RESPIRATORY FAILURE ANOXIC BRAIN INJURY FEVER LIKELY UTI/UROSEPSIS AFIB SEIZURES HEP C FUNCTIONAL QUADRAPLEGIA CHF PLAN IV ABX PER ID VENT SUPPORT ON AC MODE INHALED BRONCHODILATORS CULTURES TRACHEAL SUCTIONING DR ALEXANDER Problem List - Problems (1) UTI (urinary tract infection) Code(s): N39.0 - URINARY TRACT INFECTION, SITE NOT SPECIFIED (2) Hepatitis C carrier Code(s): Z22.52 - (3) Seizure Code(s): R56.9 - UNSPECIFIED CONVULSIONS (4) Anemia Code(s): D64.9 - ANEMIA, UNSPECIFIED (5) Anoxic brain injury Code(s): G93.1 - ANOXIC BRAIN DAMAGE, NOT ELSEWHERE CLASSIFIED (6) Atrial fibrillation Code(s): I48.91 - UNSPECIFIED ATRIAL FIBRILLATION Qualifiers: Atrial fibrillation type: persistent Qualified Code(s): I48.1 - Persistent atrial fibrillation (7) Chronic respiratory failure Code(s): J96.10 - CHRONIC RESPIRATORY FAILURE, UNSP W HYPOXIA OR HYPERCAPNIA Qualifiers: Respiratory failure complication: unspecified whether with hypoxia or hypercapnia Qualified Code(s): J96.10 - Chronic respiratory failure, unspecified whether with hypoxia or hypercapnia (8) Quadriplegia, functional Code(s): R53.2 - FUNCTIONAL QUADRIPLEGIA (9) Tracheostomy tube present Code(s): Z93.0 - TRACHEOSTOMY STATUS
[2017-10-25] MEDS: DIGOXIN 0.125 MG TABLET (FP) GT SCH (13:13)
[2017-10-25] MEDS: ACETAMINOPHEN 650 MG/20.3 ML ORAL SOLUTION (CUPS) GT PRN ×2 (13:14→22:41)
--- NOTE | 2017-10-25 13:23 | CONS ---
DATE OF CONSULTATION: 10/25/2017 REFERRING PHYSICIAN: Luann Banuelos MD HISTORY OF PRESENT ILLNESS: History is obtained per chart. The patient is a 62-year-old white male resident of [facility] with a significant past medical history of hypertension, atrial fibrillation, congestive heart failure, history of anoxic brain injury with chronic respiratory failure, status post trach and PEG, chronic suprapubic, recurrent UTIs, functional quadriplegia, seizures, hepatitis C, genital condylomata, chronic pressure ulcers, hypothyroidism, transferred to [facility] secondary to fever. In the ER he was noted to be febrile with his temperature 101. He was also noted to be tachycardic. He was also noted to have pyuria coming out of the suprapubic catheter. He was felt to have sepsis, urosepsis. He was started on antibiotic therapy and transferred to the medical floor for further management. PAST MEDICAL HISTORY: Again includes hypertension, atrial fibrillation, CHF, functional quadriplegia, anoxic brain injury, chronic respiratory failure, status post trach and PEG, chronic suprapubic catheter, recurrent UTIs, functional seizures and hepatitis C. REVIEW OF SYSTEMS: Unable to obtain. SOCIAL HISTORY: He has apparently a history of ETOH. CURRENT MEDICATIONS: Include Tylenol solution; Cordarone; meropenem; Eliquis; Bacid; Lotrisone; albuterol; Lopressor; Lasix; Lanoxin; Senna; artificial tears; Santyl; Synthroid. PHYSICAL EXAMINATION: General: The patient is a thin male, well developed. Opens eyes. Not responsive. On ventilator support. Vital Signs: He is currently afebrile, blood pressure 114/50, respiratory rate is 19, saturation is 100%. HEENT: Normocephalic, atraumatic. Neck: Supple. Heart: Irregularly irregular with S1, S2. Chest: Scattered bilateral rhonchi. Abdomen: Soft, bowel sounds are positive. Extremities: Bilateral lower extremity edema. LABORATORIES: WBC is 8.3, hemoglobin 9.5, hematocrit 27.6, a platelet count of 142,000. INR IS 1.28. Venous blood gas: 7.44, PCO2 of 40 and a PO2 of 37. Chemistries: BUN 26, creatinine 0.7. TSH is 12.5. Chest x-ray: No infiltrates and no effusions. IMPRESSION: 1. Chronic respiratory failure, anoxic encephalopathy. 2. Fever, urosepsis, urinary tract infection. 3. Atrial fibrillation. 4. Congestive heart failure. 5. Anoxic brain injury. 6. Functional quadriplegia. 7. Chronic suprapubic catheter. 8. Recurrent urinary tract infections. 9. Seizures. 10. Hepatitis C. PLAN: Continue ventilator support on assist control mode as well as trach collar as tolerated. Broad-spectrum antibiotics. Check cultures. Followup chest x-rays. Rate control. Thank you. JUAN ALEXANDER M.D. [id number]
--- NOTE | 2017-10-25 15:37 | PN ---
Progress Note (short form) - Note Progress Note: ID Consult dictated Patient known to our service Febrile Selected Entries 10/25/17 10/25/17 14:52 14:56 Temperature 100.7 F H Pulse Rate 117 H Respiratory 19 Rate Blood Pressure 102/71 Assesment Fever secondary UTI Plan Catheter change today Ceftriaxone and Gent pending urine c/s Isolation for resistant Acintobacter Veena ROY Problem List - Problems (1) Fever Code(s): R50.9 - FEVER, UNSPECIFIED (2) UTI (urinary tract infection) Code(s): N39.0 - URINARY TRACT INFECTION, SITE NOT SPECIFIED
[2017-10-25] MEDS: SODIUM CHLORIDE IVPB SCH (16:45)
[2017-10-25] MEDS: GENTAMICIN IVPB SCH (16:45)
--- NOTE | 2017-10-25 17:36 | CONS ---
DATE OF CONSULTATION: DATE OF DICTATION: 10/25/2017 INFECTIOUS DISEASE CONSULTATION HISTORY OF PRESENT ILLNESS: This is a 62-year-old male with multiple comorbidities including anoxic brain injury who is chronic vent dependent, whom I am asked to see for evaluation of fever to 101 with pyuria which is typically chronic. He had been here in August, at which time we had treated him for a gram-negative urinary tract infection with ceftriaxone and oral cefuroxime. Here he was scheduled today to go to interventional radiology to have his suprapubic catheter changed, and this was accomplished this afternoon. He has been on meropenem and gentamicin, and his blood cultures are currently negative, and a urine culture is pending. PAST MEDICAL HISTORY: Includes quadriplegia with anoxic brain injury, hypertension, hypothyroidism. MEDICATION: Include Cordarone, Eliquis, clotrimazole, albuterol, metoprolol, digoxin, Synthroid. ALLERGIES: None known. FAMILY HISTORY: Unobtainable. REVIEW OF SYSTEMS: Respiratory: Chronic vent dependency. Cardiac: No history of congenital heart disease murmur. Gastrointestinal: PEG feeding tube. Genitourinary: Chronic indwelling Boucher. PHYSICAL EXAMINATION: Vital signs: Temperature 100.7, pulse 117, blood pressure 102/71, respirations 19. Neck: With a tracheostomy in place. Lungs: With bilateral rhonchi. Heart: Irregular. Abdomen: Soft. PEG feeding tube. Urinalysis with 29 WBCs, 3+ leukocyte esterase. White count of 8.3, hemoglobin 9.5, platelets 142, BUN 26, creatinine 0.6. ASSESSMENT: A 62-year-old male with anoxic brain injury. I am asked to see him for evaluation of fever in the setting of recurrent urinary tract infections and a suprapubic catheter. Previous organism proteus cultured in August. PLAN: Empiric therapy with ceftriaxone and gentamicin pending cultures, blood and urine. Contact isolation for resistant Acinetobacter in the sputum. Suprapubic catheter changed earlier today. YOKO JENKINS M.D. MARY [id number]
[2017-10-25] MEDS: CEFTRIAXONE 2 GM in DEXTROSE 5%-WATER 100 ML IVPB SCH (18:09)
[2017-10-26] MEDS: LEVOTHYROXINE NA 50 MCG TABLET (FP) PO SCH (06:05)
[2017-10-26] MEDS: AMINO ACIDS/PROTEIN HYDROLYS 30 ML LIQUID.PKT PO SCH ×2 (08:00→17:36)
[2017-10-26] MEDS: CEFTRIAXONE 2 GM in DEXTROSE 5%-WATER 100 ML IVPB SCH (10:00)
[2017-10-26] MEDS: LACTOBACILLUS ACIDOPHILUS 1 TABLET GT SCH ×2 (10:27→22:07)
[2017-10-26] MEDS: ARTIFICIAL TEARS (POLYVINYL ALCOHOL 1.4%) OPTH DROPS OU SCH ×4 (10:27→22:27)
[2017-10-26] MEDS: DIGOXIN 0.125 MG TABLET (FP) GT SCH (10:27)
[2017-10-26] MEDS: POTASSIUM CHLORIDE ORAL LIQUID 20 MEQ/15 ML GT SCH (10:27)
[2017-10-26] MEDS: AMIODARONE HCL 200 MG TABLET (FP) GT SCH (10:28)
[2017-10-26] MEDS: METOPROLOL TARTRATE 50 MG TABLET (FP) GT SCH ×2 (10:28→22:07)
[2017-10-26] MEDS: FUROSEMIDE 20 MG TABLET (FP) GT SCH (10:28)
[2017-10-26] MEDS: APIXABAN 5 MG TABLET PO SCH ×2 (10:28→22:07)
[2017-10-26] MEDS: CLOTRIMAZOLE/BETAMET DIPROP 15 GM TUBE TP PRN (10:29)
[2017-10-26] MEDS: COLLAGENASE CLOSTRIDIUM HIST. 30 GRAMS TUBE TP SCH (10:29)
--- NOTE | 2017-10-26 10:56 | PN ---
Progress Note, Physician Chief Complaint: ID Ceftriaxone and Gent Remains febrile low grade only - Current Medication List Current Medications: Active Medications Acetaminophen (Tylenol Oral Solution -) 500 mg GT Q6H PRN PRN Reason: PAIN Last Admin: 10/25/17 22:41 Dose: 500 mg Albuterol Sulfate (Ventolin 0.083% Nebulizer Soln -) 1 amp NEB Q4H PRN PRN Reason: SHORT OF BREATH/WHEEZING Amino Acids (Prosource No Carb Liquid Pkt) 30 ml PO BID@0800,1730 [facility] Last Admin: 10/26/17 08:00 Dose: 30 ml Amiodarone HCl (Cordarone -) 200 mg GT DAILY [facility] Last Admin: 10/26/17 10:28 Dose: 200 mg Apixaban (Eliquis -) 5 mg PO BID [facility] Last Admin: 10/26/17 10:28 Dose: 5 mg Artificial Tears (Artificial Tears) 1 drop OU QID [facility] Last Admin: 10/26/17 10:27 Dose: 1 drop Clotrimazole (Lotrisone Cream (Small Tube)) 1 applic TP DAILY PRN PRN Reason: AFTER CARE Q SHIFT Last Admin: 10/26/17 10:29 Dose: 1 applic Collagenase (Santyl -) 1 applic TP DAILY [facility]; Protocol Last Admin: 10/26/17 10:29 Dose: 1 applic Digoxin (Lanoxin -) 0.25 mg GT DAILY [facility] Last Admin: 10/26/17 10:27 Dose: 0.25 mg Furosemide (Lasix -) 20 mg GT DAILY [facility] Last Admin: 10/26/17 10:28 Dose: 20 mg Ceftriaxone Sodium 2 gm/ (Dextrose) 100 mls @ 100 mls/hr IVPB DAILY [facility]; Protocol Last Admin: 10/25/17 18:09 Dose: 100 mls/hr Gentamicin Sulfate 375 mg/ (Sodium Chloride) 100 mls @ 100 mls/hr IVPB DAILY [facility]; Protocol Last Admin: 10/25/17 16:45 Dose: 100 mls/hr Lactobacillus Acidophilus (Bacid -) 1 tab GT BID [facility] Last Admin: 10/26/17 10:27 Dose: 1 tab Levothyroxine Sodium (Synthroid -) 50 mcg PO DAILY@0700 [facility] Last Admin: 10/26/17 06:05 Dose: 50 mcg Metoprolol Tartrate (Lopressor -) 50 mg GT BID [facility] Last Admin: 10/26/17 10:28 Dose: 50 mg Potassium Chloride (Potassium Chloride Oral Liquid) 20 meq GT DAILY [facility] Last Admin: 10/26/17 10:27 Dose: 20 meq Senna (Senna Oral Solution -) 17.6 mg GT HS [facility] Last Admin: 10/25/17 22:35 Dose: 17.6 mg - Objective Vital Signs: Vital Signs Temperature 100.4 F H 10/26/17 10:25 Pulse Rate 107 H 10/26/17 10:27 Respiratory Rate 19 10/26/17 10:25 Blood Pressure 105/60 10/26/17 10:25 O2 Sat by Pulse Oximetry (%) 98 10/25/17 09:00 Constitutional: Yes: No Distress Neck: Yes: Other (Trach) Cardiovascular: Yes: S1, S2 Respiratory: Yes: Rhonchi Labs: CBC, BMP 10/25/17 06:30 10/25/17 06:30 INR, PTT INR 1.28 (0.82-1.09) H 10/24/17 Unknown Problem List - Problems (1) Fever Code(s): R50.9 - FEVER, UNSPECIFIED (2) UTI (urinary tract infection) Code(s): N39.0 - URINARY TRACT INFECTION, SITE NOT SPECIFIED Assessment/Plan Microbiology 10/24/17 15:00 Urine - Urine Boucher Urine Culture - Final NO GROWTH OBTAINED 10/24/17 14:38 Blood - Peripheral Venous Blood Culture - Preliminary NO GROWTH OBTAINED AFTER 24 HOURS, INCUBATION TO CONTINUE FOR 4 DAYS. 10/24/17 14:38 Blood - Peripheral Venous Blood Culture - Preliminary NO GROWTH OBTAINED AFTER 24 HOURS, INCUBATION TO CONTINUE FOR 4 DAYS. Laboratory Tests 10/24/17 10/24/17 10/25/17 14:33 Unknown 06:30 WBC 10.5 H 8.3 Hgb 9.5 L Hct 27.6 L Plt Count 142 BUN Creatinine Creat Clearance w eGFR Lactic Acid 1.2 10/25/17 06:30 WBC Hgb Hct Plt Count BUN 26 H Creatinine 0.6 L Creat Clearance w eGFR > 60 Lactic Acid Assessment Vent dependent Fever o admission low grade now and WBC down Cultures no growth Plan Continue Ceftriaxone and Gent 1 more day. If still having fever stop all antibiotics Veena ROY
--- NOTE | 2017-10-26 11:13 | PN ---
Progress Note, Physician Chief Complaint: poorly responsive low grade temps - Current Medication List Current Medications: Active Medications Acetaminophen (Tylenol Oral Solution -) 500 mg GT Q6H PRN PRN Reason: PAIN Last Admin: 10/25/17 22:41 Dose: 500 mg Albuterol Sulfate (Ventolin 0.083% Nebulizer Soln -) 1 amp NEB Q4H PRN PRN Reason: SHORT OF BREATH/WHEEZING Amino Acids (Prosource No Carb Liquid Pkt) 30 ml PO BID@0800,1730 [facility] Last Admin: 10/26/17 08:00 Dose: 30 ml Amiodarone HCl (Cordarone -) 200 mg GT DAILY [facility] Last Admin: 10/26/17 10:28 Dose: 200 mg Apixaban (Eliquis -) 5 mg PO BID [facility] Last Admin: 10/26/17 10:28 Dose: 5 mg Artificial Tears (Artificial Tears) 1 drop OU QID [facility] Last Admin: 10/26/17 10:27 Dose: 1 drop Clotrimazole (Lotrisone Cream (Small Tube)) 1 applic TP DAILY PRN PRN Reason: AFTER CARE Q SHIFT Last Admin: 10/26/17 10:29 Dose: 1 applic Collagenase (Santyl -) 1 applic TP DAILY [facility]; Protocol Last Admin: 10/26/17 10:29 Dose: 1 applic Digoxin (Lanoxin -) 0.25 mg GT DAILY [facility] Last Admin: 10/26/17 10:27 Dose: 0.25 mg Furosemide (Lasix -) 20 mg GT DAILY [facility] Last Admin: 10/26/17 10:28 Dose: 20 mg Ceftriaxone Sodium 2 gm/ (Dextrose) 100 mls @ 100 mls/hr IVPB DAILY [facility]; Protocol Last Admin: 10/25/17 18:09 Dose: 100 mls/hr Gentamicin Sulfate 375 mg/ (Sodium Chloride) 100 mls @ 100 mls/hr IVPB DAILY [facility]; Protocol Last Admin: 10/25/17 16:45 Dose: 100 mls/hr Lactobacillus Acidophilus (Bacid -) 1 tab GT BID [facility] Last Admin: 10/26/17 10:27 Dose: 1 tab Levothyroxine Sodium (Synthroid -) 50 mcg PO DAILY@0700 [facility] Last Admin: 10/26/17 06:05 Dose: 50 mcg Metoprolol Tartrate (Lopressor -) 50 mg GT BID [facility] Last Admin: 10/26/17 10:28 Dose: 50 mg Potassium Chloride (Potassium Chloride Oral Liquid) 20 meq GT DAILY [facility] Last Admin: 10/26/17 10:27 Dose: 20 meq Senna (Senna Oral Solution -) 17.6 mg GT HS [facility] Last Admin: 10/25/17 22:35 Dose: 17.6 mg - Objective Vital Signs: Vital Signs Temperature 100.4 F H 10/26/17 10:25 Pulse Rate 107 H 10/26/17 10:27 Respiratory Rate 19 10/26/17 10:25 Blood Pressure 105/60 10/26/17 10:25 O2 Sat by Pulse Oximetry (%) 98 10/25/17 09:00 Constitutional: Yes: No Distress Cardiovascular: Yes: Regular Rate and Rhythm Respiratory: Yes: Diminished, Mechanically Ventilated Gastrointestinal: Yes: Normal Bowel Sounds, Soft, Other (suprapubic catheter, peg+). No: Distention, Tenderness Edema: No Labs: CBC, BMP 10/25/17 06:30 10/25/17 06:30 INR, PTT INR 1.28 (0.82-1.09) H 10/24/17 Unknown Problem List - Problems (1) UTI (urinary tract infection) Code(s): N39.0 - URINARY TRACT INFECTION, SITE NOT SPECIFIED (2) Anoxic brain injury Code(s): G93.1 - ANOXIC BRAIN DAMAGE, NOT ELSEWHERE CLASSIFIED (3) Atrial fibrillation Code(s): I48.91 - UNSPECIFIED ATRIAL FIBRILLATION Qualifiers: Atrial fibrillation type: persistent Qualified Code(s): I48.1 - Persistent atrial fibrillation (4) Chronic respiratory failure Code(s): J96.10 - CHRONIC RESPIRATORY FAILURE, UNSP W HYPOXIA OR HYPERCAPNIA Qualifiers: Respiratory failure complication: unspecified whether with hypoxia or hypercapnia Qualified Code(s): J96.10 - Chronic respiratory failure, unspecified whether with hypoxia or hypercapnia (5) Condylomata acuminata in male Code(s): A63.0 - ANOGENITAL (VENEREAL) WARTS (6) Quadriplegia, functional Code(s): R53.2 - FUNCTIONAL QUADRIPLEGIA (7) Sepsis Code(s): A41.9 - SEPSIS, UNSPECIFIED ORGANISM Qualifiers: Sepsis type: sepsis due to unspecified organism Qualified Code(s): A41.9 - Sepsis, unspecified organism (8) UTI (urinary tract infection) Code(s): N39.0 - URINARY TRACT INFECTION, SITE NOT SPECIFIED Qualifiers: Urinary tract infection type: site unspecified Hematuria presence: without hematuria Qualified Code(s): N39.0 - Urinary tract infection, site not specified Assessment/Plan PLAN iv antibiotics ID consult appreciated cultures negative Urine cultures negative s/p Suprapubic catheter replacement continue with meds Rate is controlled
--- NOTE | 2017-10-26 11:26 | PN ---
Progress Note (short form) - Note Progress Note: PULMONARY Intermittent low grade fevers. Vented on volume assist control. Vital Signs Period Temp Pulse Resp BP Sys/Bhardwaj Pulse Ox Last 24 Hr 98.6 F-100.7 F 93-117 16-21 99-113/51-78 Gen: vented, poorly responsive Heart: RRR Lung: decreased breath sounds at the bases Abd: soft, nontender Ext: no edema CBC, BMP 10/25/17 06:30 10/25/17 06:30 Active Medications Acetaminophen (Tylenol Oral Solution -) 500 mg GT Q6H PRN PRN Reason: PAIN Last Admin: 10/25/17 22:41 Dose: 500 mg Albuterol Sulfate (Ventolin 0.083% Nebulizer Soln -) 1 amp NEB Q4H PRN PRN Reason: SHORT OF BREATH/WHEEZING Amino Acids (Prosource No Carb Liquid Pkt) 30 ml PO BID@0800,1730 [facility] Last Admin: 10/26/17 08:00 Dose: 30 ml Amiodarone HCl (Cordarone -) 200 mg GT DAILY [facility] Last Admin: 10/26/17 10:28 Dose: 200 mg Apixaban (Eliquis -) 5 mg PO BID [facility] Last Admin: 10/26/17 10:28 Dose: 5 mg Artificial Tears (Artificial Tears) 1 drop OU QID [facility] Last Admin: 10/26/17 10:27 Dose: 1 drop Clotrimazole (Lotrisone Cream (Small Tube)) 1 applic TP DAILY PRN PRN Reason: AFTER CARE Q SHIFT Last Admin: 10/26/17 10:29 Dose: 1 applic Collagenase (Santyl -) 1 applic TP DAILY [facility]; Protocol Last Admin: 10/26/17 10:29 Dose: 1 applic Digoxin (Lanoxin -) 0.25 mg GT DAILY [facility] Last Admin: 10/26/17 10:27 Dose: 0.25 mg Furosemide (Lasix -) 20 mg GT DAILY [facility] Last Admin: 10/26/17 10:28 Dose: 20 mg Ceftriaxone Sodium 2 gm/ (Dextrose) 100 mls @ 100 mls/hr IVPB DAILY [facility]; Protocol Last Admin: 10/25/17 18:09 Dose: 100 mls/hr Gentamicin Sulfate 375 mg/ (Sodium Chloride) 100 mls @ 100 mls/hr IVPB DAILY [facility]; Protocol Last Admin: 10/25/17 16:45 Dose: 100 mls/hr Lactobacillus Acidophilus (Bacid -) 1 tab GT BID [facility] Last Admin: 10/26/17 10:27 Dose: 1 tab Levothyroxine Sodium (Synthroid -) 50 mcg PO DAILY@0700 [facility] Last Admin: 10/26/17 06:05 Dose: 50 mcg Metoprolol Tartrate (Lopressor -) 50 mg GT BID [facility] Last Admin: 10/26/17 10:28 Dose: 50 mg Potassium Chloride (Potassium Chloride Oral Liquid) 20 meq GT DAILY [facility] Last Admin: 10/26/17 10:27 Dose: 20 meq Senna (Senna Oral Solution -) 17.6 mg GT HS [facility] Last Admin: 10/25/17 22:35 Dose: 17.6 mg A/P Chronic Respiratory Failure UTI Anoxic Encephalopathy Atrial Fibrillation LV Systolic Dysfunction Seizure Disorder Hep C - continue antibiotics per ID - f/u cultures - rate controlled - continue anticoagulation - continue volume assist control - poor candidate for weaning due to mental status - enteral feeds - DVT prophylaxis
[2017-10-26] MEDS: GENTAMICIN IVPB SCH (12:16)
[2017-10-26] MEDS: SODIUM CHLORIDE IVPB SCH (12:16)
[2017-10-26] MEDS ORDERED: PT OWN MED DRAWER 7, Y5N ONE (15:23)
[2017-10-26] MEDS: SENNOSIDES 8.8 MG/5 ML BULK BOTTLE GT SCH (22:07)
[2017-10-27] MEDS: LEVOTHYROXINE NA 50 MCG TABLET (FP) PO SCH (06:31)
[2017-10-27] MEDS: AMINO ACIDS/PROTEIN HYDROLYS 30 ML LIQUID.PKT PO SCH ×2 (08:57→17:48)
[2017-10-27] MEDS ORDERED: PT OWN MED DRAWER 7, Y5N ONE ×2 (10:42→13:55)
[2017-10-27] MEDS ORDERED: DEXTROSE 5%-WATER 100 ML IVPB ONE (10:43)
--- NOTE | 2017-10-27 10:51 | PN ---
Progress Note (short form) - Note Progress Note: patient seen and examined. Chart reviewed Low-grade temp Vent dependent Poorly responsive Vital Signs Temp 99.5 F 10/27/17 05:41 Pulse 120 H 10/27/17 05:41 Resp 21 10/27/17 08:46 BP 125/73 10/27/17 05:41 Pulse Ox 98 10/26/17 09:00 Intake & Output 10/26/17 10/26/17 10/27/17 11:59 23:59 11:59 Intake Total 1150 1150 Output Total 250 400 150 Balance 900 750 -150 Intake: IVPB 150 Tube Feeding 700 700 Tube Irrigant 450 300 Output: Urine 250 400 150 Supra Pubic Tube 250 400 150 Other: Voiding Method Diaper Indwelling Catheter Bowel Movement No No Active Medications Acetaminophen (Tylenol Oral Solution -) 500 mg GT Q6H PRN PRN Reason: PAIN Last Admin: 10/25/17 22:41 Dose: 500 mg Albuterol Sulfate (Ventolin 0.083% Nebulizer Soln -) 1 amp NEB Q4H PRN PRN Reason: SHORT OF BREATH/WHEEZING Amino Acids (Prosource No Carb Liquid Pkt) 30 ml PO BID@0800,1730 [facility] Last Admin: 10/27/17 08:57 Dose: 30 ml Amiodarone HCl (Cordarone -) 200 mg GT DAILY [facility] Last Admin: 10/26/17 10:28 Dose: 200 mg Apixaban (Eliquis -) 5 mg PO BID [facility] Last Admin: 10/26/17 22:07 Dose: 5 mg Artificial Tears (Artificial Tears) 1 drop OU QID [facility] Last Admin: 10/26/17 22:27 Dose: Not Given Clotrimazole (Lotrisone Cream (Small Tube)) 1 applic TP DAILY PRN PRN Reason: AFTER CARE Q SHIFT Last Admin: 10/26/17 10:29 Dose: 1 applic Collagenase (Santyl -) 1 applic TP DAILY [facility]; Protocol Last Admin: 10/26/17 10:29 Dose: 1 applic Digoxin (Lanoxin -) 0.25 mg GT DAILY [facility] Last Admin: 10/26/17 10:27 Dose: 0.25 mg Furosemide (Lasix -) 20 mg GT DAILY [facility] Last Admin: 10/26/17 10:28 Dose: 20 mg Ceftriaxone Sodium 2 gm/ (Dextrose) 100 mls @ 100 mls/hr IVPB DAILY [facility]; Protocol Last Admin: 10/26/17 10:00 Dose: 100 mls/hr Gentamicin Sulfate 375 mg/ (Sodium Chloride) 100 mls @ 100 mls/hr IVPB DAILY [facility]; Protocol Last Admin: 10/26/17 12:16 Dose: 100 mls/hr Lactobacillus Acidophilus (Bacid -) 1 tab GT BID [facility] Last Admin: 10/26/17 22:07 Dose: 1 tab Levothyroxine Sodium (Synthroid -) 50 mcg PO DAILY@0700 [facility] Last Admin: 10/27/17 06:31 Dose: 50 mcg Metoprolol Tartrate (Lopressor -) 50 mg GT BID [facility] Last Admin: 10/26/17 22:07 Dose: 50 mg Potassium Chloride (Potassium Chloride Oral Liquid) 20 meq GT DAILY [facility] Last Admin: 10/26/17 10:27 Dose: 20 meq Senna (Senna Oral Solution -) 17.6 mg GT HS [facility] Last Admin: 10/26/17 22:07 Dose: 17.6 mg CBC, BMP 10/25/17 06:30 10/25/17 06:30 Microbiology 10/24/17 14:38 Blood Culture - Preliminary Blood - Peripheral Venous NO GROWTH OBTAINED AFTER 48 HOURS, INCUBATION TO CONTINUE FOR 3 DAYS. 10/24/17 14:38 Blood Culture - Preliminary Blood - Peripheral Venous NO GROWTH OBTAINED AFTER 48 HOURS, INCUBATION TO CONTINUE FOR 3 DAYS. 10/24/17 15:00 Urine Culture - Final Urine - Urine Boucher NO GROWTH OBTAINED physical exam Constitutional: Yes: No Distress. vent dependent Cardiovascular: Yes: Regular Rate and Rhythm Respiratory: Yes: Diminished, Mechanically Ventilated Gastrointestinal: Yes: Normal Bowel Sounds, Soft, Other (suprapubic catheter, peg+). No: Distention, Tenderness Edema: No Problem List - Problems (1) UTI (urinary tract infection) Code(s): N39.0 - URINARY TRACT INFECTION, SITE NOT SPECIFIED (2) Anoxic brain injury Code(s): G93.1 - ANOXIC BRAIN DAMAGE, NOT ELSEWHERE CLASSIFIED (3) Atrial fibrillation Code(s): I48.91 - UNSPECIFIED ATRIAL FIBRILLATION Qualifiers: Atrial fibrillation type: persistent Qualified Code(s): I48.1 - Persistent atrial fibrillation (4) Chronic respiratory failure Code(s): J96.10 - CHRONIC RESPIRATORY FAILURE, UNSP W HYPOXIA OR HYPERCAPNIA Qualifiers: Respiratory failure complication: unspecified whether with hypoxia or hypercapnia Qualified Code(s): J96.10 - Chronic respiratory failure, unspecified whether with hypoxia or hypercapnia (5) Condylomata acuminata in male Code(s): A63.0 - ANOGENITAL (VENEREAL) WARTS (6) Quadriplegia, functional Code(s): R53.2 - FUNCTIONAL QUADRIPLEGIA (7) Sepsis Code(s): A41.9 - SEPSIS, UNSPECIFIED ORGANISM Qualifiers: Sepsis type: sepsis due to unspecified organism Qualified Code(s): A41.9 - Sepsis, unspecified organism (8) UTI (urinary tract infection) Code(s): N39.0 - URINARY TRACT INFECTION, SITE NOT SPECIFIED Qualifiers: Urinary tract infection type: site unspecified Hematuria presence: without hematuria Qualified Code(s): N39.0 - Urinary tract infection, site not specified Assessment/Plan continue present care ID follow-up noted iv antibiotics--Discontinue tomorrow? cultures negative so far continue other meds Will follow Overall condition guarded
[2017-10-27] MEDS: LACTOBACILLUS ACIDOPHILUS 1 TABLET GT SCH ×2 (10:59→22:54)
[2017-10-27] MEDS: POTASSIUM CHLORIDE ORAL LIQUID 20 MEQ/15 ML GT SCH (10:59)
[2017-10-27] MEDS: AMIODARONE HCL 200 MG TABLET (FP) GT SCH (11:00)
[2017-10-27] MEDS: METOPROLOL TARTRATE 50 MG TABLET (FP) GT SCH ×2 (11:00→22:54)
[2017-10-27] MEDS: DIGOXIN 0.125 MG TABLET (FP) GT SCH (11:00)
[2017-10-27] MEDS: APIXABAN 5 MG TABLET PO SCH ×2 (11:00→22:54)
[2017-10-27] MEDS: FUROSEMIDE 20 MG TABLET (FP) GT SCH (11:00)
[2017-10-27] MEDS: CEFTRIAXONE 2 GM in DEXTROSE 5%-WATER 100 ML IVPB SCH (11:00)
[2017-10-27] MEDS: ARTIFICIAL TEARS (POLYVINYL ALCOHOL 1.4%) OPTH DROPS OU SCH ×4 (11:03→22:55)
[2017-10-27] MEDS: SODIUM CHLORIDE IVPB SCH (12:03)
[2017-10-27] MEDS: GENTAMICIN IVPB SCH (12:03)
--- NOTE | 2017-10-27 13:20 | PN ---
Progress Note (short form) - Note Progress Note: PULMONARY Intermittent low grade fevers. Vented on volume assist control. 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
--- NOTE | 2017-10-27 14:19 | PN ---
Progress Note, Physician Chief Complaint: ID On off fevers HE has done thi before I believe. This despite several days of ceftriaxone and gent - Current Medication List Current Medications: Active Medications Acetaminophen (Tylenol Oral Solution -) 500 mg GT Q6H PRN PRN Reason: PAIN Last Admin: 10/25/17 22:41 Dose: 500 mg Albuterol Sulfate (Ventolin 0.083% Nebulizer Soln -) 1 amp NEB Q4H PRN PRN Reason: SHORT OF BREATH/WHEEZING Amino Acids (Prosource No Carb Liquid Pkt) 30 ml PO BID@0800,1730 [facility] Last Admin: 10/27/17 08:57 Dose: 30 ml Amiodarone HCl (Cordarone -) 200 mg GT DAILY [facility] Last Admin: 10/27/17 11:00 Dose: 200 mg Apixaban (Eliquis -) 5 mg PO BID [facility] Last Admin: 10/27/17 11:00 Dose: 5 mg Artificial Tears (Artificial Tears) 1 drop OU QID [facility] Last Admin: 10/27/17 11:03 Dose: 1 drop Clotrimazole (Lotrisone Cream (Small Tube)) 1 applic TP DAILY PRN PRN Reason: AFTER CARE Q SHIFT Last Admin: 10/26/17 10:29 Dose: 1 applic Collagenase (Santyl -) 1 applic TP DAILY [facility]; Protocol Last Admin: 10/26/17 10:29 Dose: 1 applic Digoxin (Lanoxin -) 0.25 mg GT DAILY [facility] Last Admin: 10/27/17 11:00 Dose: 0.25 mg Furosemide (Lasix -) 20 mg GT DAILY [facility] Last Admin: 10/27/17 11:00 Dose: 20 mg Ceftriaxone Sodium 2 gm/ (Dextrose) 100 mls @ 100 mls/hr IVPB DAILY [facility]; Protocol Last Admin: 10/27/17 11:00 Dose: 100 mls/hr Gentamicin Sulfate 375 mg/ (Sodium Chloride) 100 mls @ 100 mls/hr IVPB DAILY [facility]; Protocol Last Admin: 10/27/17 12:03 Dose: 100 mls/hr Lactobacillus Acidophilus (Bacid -) 1 tab GT BID [facility] Last Admin: 10/27/17 10:59 Dose: 1 tab Levothyroxine Sodium (Synthroid -) 50 mcg PO DAILY@0700 [facility] Last Admin: 10/27/17 06:31 Dose: 50 mcg Metoprolol Tartrate (Lopressor -) 50 mg GT BID [facility] Last Admin: 10/27/17 11:00 Dose: 50 mg Potassium Chloride (Potassium Chloride Oral Liquid) 20 meq GT DAILY [facility] Last Admin: 10/27/17 10:59 Dose: 20 meq Senna (Senna Oral Solution -) 17.6 mg GT HS [facility] Last Admin: 10/26/17 22:07 Dose: 17.6 mg - Objective Vital Signs: Vital Signs Temperature 100.7 F H 10/27/17 11:50 Pulse Rate 101 H 10/27/17 11:00 Respiratory Rate 16 10/27/17 12:28 Blood Pressure 110/65 10/27/17 10:55 O2 Sat by Pulse Oximetry (%) 98 10/26/17 09:00 Constitutional: Yes: No Distress HENT: Yes: WNL, Atraumatic Cardiovascular: Yes: S1, S2, S4 Respiratory: Yes: Regular, CTA Bilaterally Labs: CBC, BMP 10/25/17 06:30 10/25/17 06:30 INR, PTT INR 1.28 (0.82-1.09) H 10/24/17 Unknown Problem List - Problems (1) Fever Code(s): R50.9 - FEVER, UNSPECIFIED (2) UTI (urinary tract infection) Code(s): N39.0 - URINARY TRACT INFECTION, SITE NOT SPECIFIED Assessment/Plan Microbiology 10/24/17 15:00 Urine - Urine Boucher Urine Culture - Final NO GROWTH OBTAINED 10/24/17 14:38 Blood - Peripheral Venous Blood Culture - Preliminary NO GROWTH OBTAINED AFTER 48 HOURS, INCUBATION TO CONTINUE FOR 3 DAYS. 10/24/17 14:38 Blood - Peripheral Venous Blood Culture - Preliminary NO GROWTH OBTAINED AFTER 48 HOURS, INCUBATION TO CONTINUE FOR 3 DAYS. Laboratory Tests 10/25/17 10/25/17 10/27/17 06:30 06:30 06:00 WBC 8.3 Hgb 9.5 L Hct 27.6 L Plt Count 142 BUN 26 H Creatinine 0.6 L Creat Clearance w eGFR > 60 TSH 12.50 H D 16.00 H D Assessment Fever unknown origin now Plan Stop antibiotic WE previously imaged him end of July for fever CRP ESR Veena ROY
[2017-10-27] MEDS: CLOTRIMAZOLE/BETAMET DIPROP 15 GM TUBE TP PRN (14:47)
[2017-10-27] MEDS: COLLAGENASE CLOSTRIDIUM HIST. 30 GRAMS TUBE TP SCH (14:48)
[2017-10-27] MEDS: ACETAMINOPHEN 650 MG/20.3 ML ORAL SOLUTION (CUPS) GT PRN (15:22)
[2017-10-27] MEDS ORDERED: INSULIN (NOVOLOG) ASPART 100 UNITS/ML 10ML VIAL ONE (21:22)
[2017-10-27] MEDS: SENNOSIDES 8.8 MG/5 ML BULK BOTTLE GT SCH (22:54)
[2017-10-28] MEDS: LEVOTHYROXINE NA 50 MCG TABLET (FP) PO SCH (06:28)
[2017-10-28] MEDS: AMINO ACIDS/PROTEIN HYDROLYS 30 ML LIQUID.PKT PO SCH ×2 (08:00→17:56)
[2017-10-28] MEDS ORDERED: PT OWN MED DRAWER 7, Y5N ONE ×2 (10:08→22:28)
[2017-10-28] MEDS: LACTOBACILLUS ACIDOPHILUS 1 TABLET GT SCH ×2 (10:12→22:29)
[2017-10-28] MEDS: DIGOXIN 0.125 MG TABLET (FP) GT SCH (10:12)
[2017-10-28] MEDS: AMIODARONE HCL 200 MG TABLET (FP) GT SCH (10:12)
[2017-10-28] MEDS: POTASSIUM CHLORIDE ORAL LIQUID 20 MEQ/15 ML GT SCH (10:12)
[2017-10-28] MEDS: COLLAGENASE CLOSTRIDIUM HIST. 30 GRAMS TUBE TP SCH (10:13)
[2017-10-28] MEDS: APIXABAN 5 MG TABLET PO SCH ×2 (10:13→22:29)
[2017-10-28] MEDS: ARTIFICIAL TEARS (POLYVINYL ALCOHOL 1.4%) OPTH DROPS OU SCH ×4 (10:13→22:29)
[2017-10-28] MEDS: METOPROLOL TARTRATE 50 MG TABLET (FP) GT SCH ×2 (10:13→22:31)
[2017-10-28] MEDS: FUROSEMIDE 20 MG TABLET (FP) GT SCH (10:13)
[2017-10-28] MEDS: CLOTRIMAZOLE/BETAMET DIPROP 15 GM TUBE TP PRN (10:14)
--- NOTE | 2017-10-28 11:42 | PN ---
Progress Note, Physician Chief Complaint: poorly responsive low grade temps - Current Medication List Current Medications: Active Medications Acetaminophen (Tylenol Oral Solution -) 500 mg GT Q6H PRN PRN Reason: PAIN Last Admin: 10/27/17 15:22 Dose: 500 mg Albuterol Sulfate (Ventolin 0.083% Nebulizer Soln -) 1 amp NEB Q4H PRN PRN Reason: SHORT OF BREATH/WHEEZING Amino Acids (Prosource No Carb Liquid Pkt) 30 ml PO BID@0800,1730 [facility] Last Admin: 10/28/17 08:00 Dose: 30 ml Amiodarone HCl (Cordarone -) 200 mg GT DAILY [facility] Last Admin: 10/28/17 10:12 Dose: 200 mg Apixaban (Eliquis -) 5 mg PO BID [facility] Last Admin: 10/28/17 10:13 Dose: 5 mg Artificial Tears (Artificial Tears) 1 drop OU QID [facility] Last Admin: 10/28/17 10:13 Dose: 1 drop Clotrimazole (Lotrisone Cream (Small Tube)) 1 applic TP DAILY PRN PRN Reason: AFTER CARE Q SHIFT Last Admin: 10/28/17 10:14 Dose: 1 applic Collagenase (Santyl -) 1 applic TP DAILY [facility]; Protocol Last Admin: 10/28/17 10:13 Dose: 1 applic Digoxin (Lanoxin -) 0.25 mg GT DAILY [facility] Last Admin: 10/28/17 10:12 Dose: 0.25 mg Furosemide (Lasix -) 20 mg GT DAILY [facility] Last Admin: 10/28/17 10:13 Dose: 20 mg Lactobacillus Acidophilus (Bacid -) 1 tab GT BID [facility] Last Admin: 10/28/17 10:12 Dose: 1 tab Levothyroxine Sodium (Synthroid -) 50 mcg PO DAILY@0700 [facility] Last Admin: 10/28/17 06:28 Dose: 50 mcg Metoprolol Tartrate (Lopressor -) 50 mg GT BID [facility] Last Admin: 10/28/17 10:13 Dose: 50 mg Potassium Chloride (Potassium Chloride Oral Liquid) 20 meq GT DAILY [facility] Last Admin: 10/28/17 10:12 Dose: 20 meq Senna (Senna Oral Solution -) 17.6 mg GT HS [facility] Last Admin: 10/27/17 22:54 Dose: 17.6 mg - Objective Vital Signs: Vital Signs Temperature 100.6 F H 10/28/17 10:00 Pulse Rate 87 10/28/17 10:12 Respiratory Rate 19 10/28/17 10:00 Blood Pressure 140/86 10/28/17 10:00 O2 Sat by Pulse Oximetry (%) 99 10/28/17 06:46 Constitutional: Yes: No Distress, Calm Cardiovascular: Yes: Pulse Irregular Respiratory: Yes: Diminished, Mechanically Ventilated Gastrointestinal: Yes: Normal Bowel Sounds, Soft. No: Tenderness, Vomiting Edema: No Labs: CBC, BMP 10/25/17 06:30 10/25/17 06:30 INR, PTT INR 1.28 (0.82-1.09) H 10/24/17 Unknown Problem List - Problems (1) UTI (urinary tract infection) Code(s): N39.0 - URINARY TRACT INFECTION, SITE NOT SPECIFIED (2) Anoxic brain injury Code(s): G93.1 - ANOXIC BRAIN DAMAGE, NOT ELSEWHERE CLASSIFIED (3) Atrial fibrillation Code(s): I48.91 - UNSPECIFIED ATRIAL FIBRILLATION Qualifiers: Atrial fibrillation type: persistent Qualified Code(s): I48.1 - Persistent atrial fibrillation (4) Chronic respiratory failure Code(s): J96.10 - CHRONIC RESPIRATORY FAILURE, UNSP W HYPOXIA OR HYPERCAPNIA Qualifiers: Respiratory failure complication: unspecified whether with hypoxia or hypercapnia Qualified Code(s): J96.10 - Chronic respiratory failure, unspecified whether with hypoxia or hypercapnia (5) Condylomata acuminata in male Code(s): A63.0 - ANOGENITAL (VENEREAL) WARTS (6) Quadriplegia, functional Code(s): R53.2 - FUNCTIONAL QUADRIPLEGIA (7) Sepsis Code(s): A41.9 - SEPSIS, UNSPECIFIED ORGANISM Qualifiers: Sepsis type: sepsis due to unspecified organism Qualified Code(s): A41.9 - Sepsis, unspecified organism (8) UTI (urinary tract infection) Code(s): N39.0 - URINARY TRACT INFECTION, SITE NOT SPECIFIED Qualifiers: Urinary tract infection type: site unspecified Hematuria presence: without hematuria Qualified Code(s): N39.0 - Urinary tract infection, site not specified Assessment/Plan PLAN iv antibiotics discontinued Urine cultures negative s/p Suprapubic catheter replacement continue with meds Rate is controlled still with low grade temps
--- NOTE | 2017-10-28 13:11 | PN ---
Progress Note (short form) - Note Progress Note: PULMONARY Intermittent low grade fevers. Vented on volume assist control. Vital Signs Period Temp Pulse Resp BP Sys/Bhardwaj Pulse Ox Last 24 Hr 98.5 F-101.3 F 75-99 16-22 101-140/57-86 99 Gen: vented, poorly responsive Heart: RRR Lung: decreased breath sounds at the bases Abd: soft, nontender Ext: no edema CBC, BMP 10/25/17 06:30 10/25/17 06:30 Active Medications Acetaminophen (Tylenol Oral Solution -) 500 mg GT Q6H PRN PRN Reason: PAIN Last Admin: 10/27/17 15:22 Dose: 500 mg Albuterol Sulfate (Ventolin 0.083% Nebulizer Soln -) 1 amp NEB Q4H PRN PRN Reason: SHORT OF BREATH/WHEEZING Amino Acids (Prosource No Carb Liquid Pkt) 30 ml PO BID@0800,1730 [facility] Last Admin: 10/28/17 08:00 Dose: 30 ml Amiodarone HCl (Cordarone -) 200 mg GT DAILY [facility] Last Admin: 10/28/17 10:12 Dose: 200 mg Apixaban (Eliquis -) 5 mg PO BID [facility] Last Admin: 10/28/17 10:13 Dose: 5 mg Artificial Tears (Artificial Tears) 1 drop OU QID [facility] Last Admin: 10/28/17 10:13 Dose: 1 drop Clotrimazole (Lotrisone Cream (Small Tube)) 1 applic TP DAILY PRN PRN Reason: AFTER CARE Q SHIFT Last Admin: 10/28/17 10:14 Dose: 1 applic Collagenase (Santyl -) 1 applic TP DAILY [facility]; Protocol Last Admin: 10/28/17 10:13 Dose: 1 applic Digoxin (Lanoxin -) 0.25 mg GT DAILY [facility] Last Admin: 10/28/17 10:12 Dose: 0.25 mg Furosemide (Lasix -) 20 mg GT DAILY [facility] Last Admin: 10/28/17 10:13 Dose: 20 mg Lactobacillus Acidophilus (Bacid -) 1 tab GT BID [facility] Last Admin: 10/28/17 10:12 Dose: 1 tab Levothyroxine Sodium (Synthroid -) 50 mcg PO DAILY@0700 [facility] Last Admin: 10/28/17 06:28 Dose: 50 mcg Metoprolol Tartrate (Lopressor -) 50 mg GT BID [facility] Last Admin: 10/28/17 10:13 Dose: 50 mg Potassium Chloride (Potassium Chloride Oral Liquid) 20 meq GT DAILY [facility] Last Admin: 10/28/17 10:12 Dose: 20 meq Senna (Senna Oral Solution -) 17.6 mg GT HS [facility] Last Admin: 10/27/17 22:54 Dose: 17.6 mg A/P Chronic Respiratory Failure UTI Anoxic Encephalopathy Atrial Fibrillation LV Systolic Dysfunction Seizure Disorder Hep C - monitor off antibiotics - rate controlled - continue anticoagulation - continue volume assist control - poor candidate for weaning due to mental status - enteral feeds - DVT prophylaxis
[2017-10-28] MEDS: ACETAMINOPHEN 650 MG/20.3 ML ORAL SOLUTION (CUPS) GT PRN (14:42)
[2017-10-28] MEDS: SENNOSIDES 8.8 MG/5 ML BULK BOTTLE GT SCH (22:29)
[2017-10-29] MEDS: LEVOTHYROXINE NA 50 MCG TABLET (FP) PO SCH (06:33)
[2017-10-29] MEDS: AMINO ACIDS/PROTEIN HYDROLYS 30 ML LIQUID.PKT PO SCH ×2 (08:33→18:30)
[2017-10-29] MEDS ORDERED: PT OWN MED DRAWER 7, Y5N ONE ×3 (10:23→22:43)
--- NOTE | 2017-10-29 10:28 | PN ---
Progress Note, Physician Chief Complaint: poorly responsive no fever - Current Medication List Current Medications: Active Medications Acetaminophen (Tylenol Oral Solution -) 500 mg GT Q6H PRN PRN Reason: PAIN Last Admin: 10/28/17 14:42 Dose: 500 mg Albuterol Sulfate (Ventolin 0.083% Nebulizer Soln -) 1 amp NEB Q4H PRN PRN Reason: SHORT OF BREATH/WHEEZING Amino Acids (Prosource No Carb Liquid Pkt) 30 ml PO BID@0800,1730 [facility] Last Admin: 10/29/17 08:33 Dose: 30 ml Amiodarone HCl (Cordarone -) 200 mg GT DAILY [facility] Last Admin: 10/28/17 10:12 Dose: 200 mg Apixaban (Eliquis -) 5 mg PO BID [facility] Last Admin: 10/28/17 22:29 Dose: 5 mg Artificial Tears (Artificial Tears) 1 drop OU QID [facility] Last Admin: 10/28/17 22:29 Dose: 1 drop Clotrimazole (Lotrisone Cream (Small Tube)) 1 applic TP DAILY PRN PRN Reason: AFTER CARE Q SHIFT Last Admin: 10/28/17 10:14 Dose: 1 applic Collagenase (Santyl -) 1 applic TP DAILY [facility]; Protocol Last Admin: 10/28/17 10:13 Dose: 1 applic Digoxin (Lanoxin -) 0.25 mg GT DAILY [facility] Last Admin: 10/28/17 10:12 Dose: 0.25 mg Furosemide (Lasix -) 20 mg GT DAILY [facility] Last Admin: 10/28/17 10:13 Dose: 20 mg Lactobacillus Acidophilus (Bacid -) 1 tab GT BID [facility] Last Admin: 10/28/17 22:29 Dose: 1 tab Levothyroxine Sodium (Synthroid -) 50 mcg PO DAILY@0700 [facility] Last Admin: 10/29/17 06:33 Dose: 50 mcg Metoprolol Tartrate (Lopressor -) 50 mg GT BID [facility] Last Admin: 10/28/17 22:31 Dose: 50 mg Potassium Chloride (Potassium Chloride Oral Liquid) 20 meq GT DAILY [facility] Last Admin: 10/28/17 10:12 Dose: 20 meq Senna (Senna Oral Solution -) 17.6 mg GT HS [facility] Last Admin: 10/28/17 22:29 Dose: 17.6 mg - Objective Vital Signs: Vital Signs Temperature 100.0 F H 10/29/17 06:00 Pulse Rate 106 H 10/29/17 06:00 Respiratory Rate 19 10/29/17 09:42 Blood Pressure 116/66 10/29/17 06:00 O2 Sat by Pulse Oximetry (%) 100 10/28/17 21:00 Constitutional: Yes: No Distress, Calm Cardiovascular: Yes: Pulse Irregular Respiratory: Yes: Diminished, Mechanically Ventilated Gastrointestinal: Yes: Normal Bowel Sounds, Soft. No: Tenderness Edema: No Labs: CBC, BMP 10/25/17 06:30 10/25/17 06:30 INR, PTT INR 1.28 (0.82-1.09) H 10/24/17 Unknown Problem List - Problems (1) UTI (urinary tract infection) Code(s): N39.0 - URINARY TRACT INFECTION, SITE NOT SPECIFIED (2) Anoxic brain injury Code(s): G93.1 - ANOXIC BRAIN DAMAGE, NOT ELSEWHERE CLASSIFIED (3) Atrial fibrillation Code(s): I48.91 - UNSPECIFIED ATRIAL FIBRILLATION Qualifiers: Atrial fibrillation type: persistent Qualified Code(s): I48.1 - Persistent atrial fibrillation (4) Chronic respiratory failure Code(s): J96.10 - CHRONIC RESPIRATORY FAILURE, UNSP W HYPOXIA OR HYPERCAPNIA Qualifiers: Respiratory failure complication: unspecified whether with hypoxia or hypercapnia Qualified Code(s): J96.10 - Chronic respiratory failure, unspecified whether with hypoxia or hypercapnia (5) Condylomata acuminata in male Code(s): A63.0 - ANOGENITAL (VENEREAL) WARTS (6) Quadriplegia, functional Code(s): R53.2 - FUNCTIONAL QUADRIPLEGIA (7) Sepsis Code(s): A41.9 - SEPSIS, UNSPECIFIED ORGANISM Qualifiers: Sepsis type: sepsis due to unspecified organism Qualified Code(s): A41.9 - Sepsis, unspecified organism (8) UTI (urinary tract infection) Code(s): N39.0 - URINARY TRACT INFECTION, SITE NOT SPECIFIED Qualifiers: Urinary tract infection type: site unspecified Hematuria presence: without hematuria Qualified Code(s): N39.0 - Urinary tract infection, site not specified Assessment/Plan PLAN iv antibiotics discontinued Urine cultures negative s/p Suprapubic catheter replacement continue with meds Rate is controlled if no further elevated temps, will dc in AM
[2017-10-29] MEDS: METOPROLOL TARTRATE 50 MG TABLET (FP) GT SCH ×2 (10:40→22:48)
[2017-10-29] MEDS: POTASSIUM CHLORIDE ORAL LIQUID 20 MEQ/15 ML GT SCH (10:40)
[2017-10-29] MEDS: FUROSEMIDE 20 MG TABLET (FP) GT SCH (10:40)
[2017-10-29] MEDS: AMIODARONE HCL 200 MG TABLET (FP) GT SCH (10:40)
[2017-10-29] MEDS: APIXABAN 5 MG TABLET PO SCH ×2 (10:41→22:48)
[2017-10-29] MEDS: LACTOBACILLUS ACIDOPHILUS 1 TABLET GT SCH ×2 (10:41→23:12)
[2017-10-29] MEDS: CLOTRIMAZOLE/BETAMET DIPROP 15 GM TUBE TP PRN (10:42)
[2017-10-29] MEDS: ARTIFICIAL TEARS (POLYVINYL ALCOHOL 1.4%) OPTH DROPS OU SCH ×4 (10:42→22:49)
[2017-10-29] MEDS: DIGOXIN 0.125 MG TABLET (FP) GT SCH (10:44)
--- NOTE | 2017-10-29 11:16 | PN ---
Progress Note (short form) - Note Progress Note: PULMONARY Still with intermittent fevers. Vented on volume assist control. Vital Signs Period Temp Pulse Resp BP Sys/Bhardwaj Pulse Ox Last 24 Hr 98.6 F-101.4 F 81-106 - 116-143/42-93 100 Gen: vented, poorly responsive Heart: RRR Lung: decreased breath sounds at the bases Abd: soft, nontender Ext: no edema CBC, BMP 10/25/17 06:30 10/25/17 06:30 Active Medications Acetaminophen (Tylenol Oral Solution -) 500 mg GT Q6H PRN PRN Reason: PAIN Last Admin: 10/28/17 14:42 Dose: 500 mg Albuterol Sulfate (Ventolin 0.083% Nebulizer Soln -) 1 amp NEB Q4H PRN PRN Reason: SHORT OF BREATH/WHEEZING Amino Acids (Prosource No Carb Liquid Pkt) 30 ml PO BID@0800,1730 [facility] Last Admin: 10/29/17 08:33 Dose: 30 ml Amiodarone HCl (Cordarone -) 200 mg GT DAILY [facility] Last Admin: 10/29/17 10:40 Dose: 200 mg Apixaban (Eliquis -) 5 mg PO BID [facility] Last Admin: 10/29/17 10:41 Dose: 5 mg Artificial Tears (Artificial Tears) 1 drop OU QID [facility] Last Admin: 10/29/17 10:42 Dose: 1 drop Clotrimazole (Lotrisone Cream (Small Tube)) 1 applic TP DAILY PRN PRN Reason: AFTER CARE Q SHIFT Last Admin: 10/29/17 10:42 Dose: 1 applic Collagenase (Santyl -) 1 applic TP DAILY [facility]; Protocol Last Admin: 10/28/17 10:13 Dose: 1 applic Digoxin (Lanoxin -) 0.25 mg GT DAILY [facility] Last Admin: 10/29/17 10:44 Dose: 0.25 mg Furosemide (Lasix -) 20 mg GT DAILY [facility] Last Admin: 10/29/17 10:40 Dose: 20 mg Lactobacillus Acidophilus (Bacid -) 1 tab GT BID [facility] Last Admin: 10/29/17 10:41 Dose: 1 tab Levothyroxine Sodium (Synthroid -) 50 mcg PO DAILY@0700 [facility] Last Admin: 10/29/17 06:33 Dose: 50 mcg Metoprolol Tartrate (Lopressor -) 50 mg GT BID [facility] Last Admin: 10/29/17 10:40 Dose: 50 mg Potassium Chloride (Potassium Chloride Oral Liquid) 20 meq GT DAILY [facility] Last Admin: 10/29/17 10:40 Dose: 20 meq Senna (Senna Oral Solution -) 17.6 mg GT HS [facility] Last Admin: 10/28/17 22:29 Dose: 17.6 mg A/P Chronic Respiratory Failure UTI Anoxic Encephalopathy Atrial Fibrillation LV Systolic Dysfunction Seizure Disorder Hep C - monitoring off antibiotics - rate controlled - continue anticoagulation - continue volume assist control - poor candidate for weaning due to mental status - enteral feeds - DVT prophylaxis
[2017-10-29] MEDS: COLLAGENASE CLOSTRIDIUM HIST. 30 GRAMS TUBE TP SCH (14:56)
[2017-10-29] MEDS: SENNOSIDES 8.8 MG/5 ML BULK BOTTLE GT SCH (22:48)
[2017-10-30] MEDS: LEVOTHYROXINE NA 50 MCG TABLET (FP) PO SCH (06:51)
[2017-10-30] MEDS: AMINO ACIDS/PROTEIN HYDROLYS 30 ML LIQUID.PKT PO SCH ×2 (08:00→17:57)
[2017-10-30] MEDS ORDERED: PT OWN MED DRAWER 7, Y5N ONE (09:46)
[2017-10-30] MEDS: FUROSEMIDE 20 MG TABLET (FP) GT SCH (09:58)
[2017-10-30] MEDS: LACTOBACILLUS ACIDOPHILUS 1 TABLET GT SCH ×2 (09:58→21:57)
[2017-10-30] MEDS: POTASSIUM CHLORIDE ORAL LIQUID 20 MEQ/15 ML GT SCH (09:58)
[2017-10-30] MEDS: APIXABAN 5 MG TABLET PO SCH ×2 (09:58→21:58)
[2017-10-30] MEDS: DIGOXIN 0.125 MG TABLET (FP) GT SCH (09:59)
[2017-10-30] MEDS: METOPROLOL TARTRATE 50 MG TABLET (FP) GT SCH ×2 (09:59→21:58)
[2017-10-30] MEDS: AMIODARONE HCL 200 MG TABLET (FP) GT SCH (09:59)
[2017-10-30] MEDS: CLOTRIMAZOLE/BETAMET DIPROP 15 GM TUBE TP PRN (10:00)
[2017-10-30] MEDS: COLLAGENASE CLOSTRIDIUM HIST. 30 GRAMS TUBE TP SCH (10:00)
[2017-10-30] MEDS: ARTIFICIAL TEARS (POLYVINYL ALCOHOL 1.4%) OPTH DROPS OU SCH ×4 (10:00→21:57)
--- NOTE | 2017-10-30 12:14 | PN ---
Progress Note (short form) - Note Progress Note: Pt seen/ examined chart reviewed awake on vent continue to have loww grade temp off abx Vital Signs Temp 99.2 F 10/30/17 10:00 Pulse 95 H 10/30/17 10:00 Resp 21 10/30/17 11:41 BP 120/66 10/30/17 10:00 Pulse Ox 97 10/30/17 11:41 Intake & Output 10/29/17 10/30/17 10/30/17 23:59 11:59 23:59 Intake Total 1370 1140 Output Total 1400 400 Balance -30 740 Intake: Oral 0 0 Tube Feeding 720 720 Tube Irrigant 650 420 Output: Urine 1400 400 Supra Pubic Tube 1400 400 Other: Voiding Method Indwelling Catheter Indwelling Catheter Bowel Movement Yes Yes # Bowel Movements 1 Active Medications Acetaminophen (Tylenol Oral Solution -) 500 mg GT Q6H PRN PRN Reason: PAIN Last Admin: 10/28/17 14:42 Dose: 500 mg Amino Acids (Prosource No Carb Liquid Pkt) 30 ml PO BID@0800,1730 [facility] Last Admin: 10/30/17 08:00 Dose: 30 ml Amiodarone HCl (Cordarone -) 200 mg GT DAILY [facility] Last Admin: 10/30/17 09:59 Dose: 200 mg Apixaban (Eliquis -) 5 mg PO BID [facility] Last Admin: 10/30/17 09:58 Dose: 5 mg Artificial Tears (Artificial Tears) 1 drop OU QID [facility] Last Admin: 10/30/17 10:00 Dose: 1 drop Clotrimazole (Lotrisone Cream (Small Tube)) 1 applic TP DAILY PRN PRN Reason: AFTER CARE Q SHIFT Last Admin: 10/30/17 10:00 Dose: 1 applic Collagenase (Santyl -) 1 applic TP DAILY [facility]; Protocol Last Admin: 10/30/17 10:00 Dose: 1 applic Digoxin (Lanoxin -) 0.25 mg GT DAILY [facility] Last Admin: 10/30/17 09:59 Dose: 0.25 mg Furosemide (Lasix -) 20 mg GT DAILY [facility] Last Admin: 10/30/17 09:58 Dose: 20 mg Lactobacillus Acidophilus (Bacid -) 1 tab GT BID [facility] Last Admin: 10/30/17 09:58 Dose: 1 tab Levothyroxine Sodium (Synthroid -) 50 mcg PO DAILY@0700 [facility] Last Admin: 10/30/17 06:51 Dose: 50 mcg Metoprolol Tartrate (Lopressor -) 50 mg GT BID [facility] Last Admin: 10/30/17 09:59 Dose: 50 mg Potassium Chloride (Potassium Chloride Oral Liquid) 20 meq GT DAILY [facility] Last Admin: 10/30/17 09:58 Dose: 20 meq Senna (Senna Oral Solution -) 17.6 mg GT HS [facility] Last Admin: 10/29/17 22:48 Dose: 17.6 mg CBC, BMP 10/25/17 06:30 10/25/17 06:30 Microbiology 10/24/17 14:38 Blood Culture - Final Blood - Peripheral Venous NO GROWTH AFTER 5 DAYS INCUBATION 10/24/17 14:38 Blood Culture - Final Blood - Peripheral Venous NO GROWTH AFTER 5 DAYS INCUBATION Repeat cultures - ordered Physical Exam. Constitutional: Yes: No Distress, Comfortable Cardiovascular: Yes: Pulse Irregular Respiratory: Yes: Diminished, Mechanically Ventilated Gastrointestinal: Yes: Normal Bowel Sounds, Soft. No: Tenderness Edema: No Problem List - Problems (1) UTI (urinary tract infection) Code(s): N39.0 - URINARY TRACT INFECTION, SITE NOT SPECIFIED (2) Anoxic brain injury Code(s): G93.1 - ANOXIC BRAIN DAMAGE, NOT ELSEWHERE CLASSIFIED (3) Atrial fibrillation Code(s): I48.91 - UNSPECIFIED ATRIAL FIBRILLATION Qualifiers: Atrial fibrillation type: persistent Qualified Code(s): I48.1 - Persistent atrial fibrillation (4) Chronic respiratory failure Code(s): J96.10 - CHRONIC RESPIRATORY FAILURE, UNSP W HYPOXIA OR HYPERCAPNIA Qualifiers: Respiratory failure complication: unspecified whether with hypoxia or hypercapnia Qualified Code(s): J96.10 - Chronic respiratory failure, unspecified whether with hypoxia or hypercapnia (5) Condylomata acuminata in male Code(s): A63.0 - ANOGENITAL (VENEREAL) WARTS (6) Quadriplegia, functional Code(s): R53.2 - FUNCTIONAL QUADRIPLEGIA (7) Sepsis Code(s): A41.9 - SEPSIS, UNSPECIFIED ORGANISM Qualifiers: Sepsis type: sepsis due to unspecified organism Qualified Code(s): A41.9 - Sepsis, unspecified organism (8) UTI (urinary tract infection) Code(s): N39.0 - URINARY TRACT INFECTION, SITE NOT SPECIFIED Qualifiers: Urinary tract infection type: site unspecified Hematuria presence: without hematuria Qualified Code(s): N39.0 - Urinary tract infection, site not specified Assessment/Plan continue to have low grade temp s/p Suprapubic catheter replacement continue with meds Rate is controlled will send repeat culture today monitor off abx will follow
--- NOTE | 2017-10-30 12:35 | PN ---
Progress Note, Physician History of Present Illness: PULMONARY POORLY RESPONSIVE ON VENT SUPPORT,AC MODE - Current Medication List Current Medications: Active Medications Acetaminophen (Tylenol Oral Solution -) 500 mg GT Q6H PRN PRN Reason: PAIN Last Admin: 10/28/17 14:42 Dose: 500 mg Amino Acids (Prosource No Carb Liquid Pkt) 30 ml PO BID@0800,1730 [facility] Last Admin: 10/30/17 08:00 Dose: 30 ml Amiodarone HCl (Cordarone -) 200 mg GT DAILY [facility] Last Admin: 10/30/17 09:59 Dose: 200 mg Apixaban (Eliquis -) 5 mg PO BID [facility] Last Admin: 10/30/17 09:58 Dose: 5 mg Artificial Tears (Artificial Tears) 1 drop OU QID [facility] Last Admin: 10/30/17 10:00 Dose: 1 drop Clotrimazole (Lotrisone Cream (Small Tube)) 1 applic TP DAILY PRN PRN Reason: AFTER CARE Q SHIFT Last Admin: 10/30/17 10:00 Dose: 1 applic Collagenase (Santyl -) 1 applic TP DAILY [facility]; Protocol Last Admin: 10/30/17 10:00 Dose: 1 applic Digoxin (Lanoxin -) 0.25 mg GT DAILY [facility] Last Admin: 10/30/17 09:59 Dose: 0.25 mg Furosemide (Lasix -) 20 mg GT DAILY [facility] Last Admin: 10/30/17 09:58 Dose: 20 mg Lactobacillus Acidophilus (Bacid -) 1 tab GT BID [facility] Last Admin: 10/30/17 09:58 Dose: 1 tab Levothyroxine Sodium (Synthroid -) 50 mcg PO DAILY@0700 [facility] Last Admin: 10/30/17 06:51 Dose: 50 mcg Metoprolol Tartrate (Lopressor -) 50 mg GT BID [facility] Last Admin: 10/30/17 09:59 Dose: 50 mg Potassium Chloride (Potassium Chloride Oral Liquid) 20 meq GT DAILY [facility] Last Admin: 10/30/17 09:58 Dose: 20 meq Senna (Senna Oral Solution -) 17.6 mg GT HS [facility] Last Admin: 10/29/17 22:48 Dose: 17.6 mg - Objective Vital Signs: Vital Signs Temperature 99.2 F 10/30/17 10:00 Pulse Rate 95 H 10/30/17 10:00 Respiratory Rate 21 10/30/17 11:41 Blood Pressure 120/66 10/30/17 10:00 O2 Sat by Pulse Oximetry (%) 97 10/30/17 11:41 Constitutional: Yes: Well Nourished, Other (POORLY RESPONSIVE) Eyes: Yes: WNL HENT: Yes: WNL Neck: Yes: Supple (TRACH) Cardiovascular: Yes: Pulse Irregular, S1, S2 Respiratory: Yes: Rhonchi (SCATTERED RHONCHI) Gastrointestinal: Yes: Normal Bowel Sounds, Soft Extremities: Yes: WNL Edema: Yes Labs: CBC, BMP Problem List - Problems (1) UTI (urinary tract infection) Code(s): N39.0 - URINARY TRACT INFECTION, SITE NOT SPECIFIED (2) Hepatitis C carrier Code(s): Z22.52 - (3) Seizure Code(s): R56.9 - UNSPECIFIED CONVULSIONS (4) Anemia Code(s): D64.9 - ANEMIA, UNSPECIFIED (5) Anoxic brain injury Code(s): G93.1 - ANOXIC BRAIN DAMAGE, NOT ELSEWHERE CLASSIFIED (6) Atrial fibrillation Code(s): I48.91 - UNSPECIFIED ATRIAL FIBRILLATION Qualifiers: Atrial fibrillation type: persistent Qualified Code(s): I48.1 - Persistent atrial fibrillation (7) Chronic respiratory failure Code(s): J96.10 - CHRONIC RESPIRATORY FAILURE, UNSP W HYPOXIA OR HYPERCAPNIA Qualifiers: Respiratory failure complication: unspecified whether with hypoxia or hypercapnia Qualified Code(s): J96.10 - Chronic respiratory failure, unspecified whether with hypoxia or hypercapnia (8) Quadriplegia, functional Code(s): R53.2 - FUNCTIONAL QUADRIPLEGIA (9) Tracheostomy tube present Code(s): Z93.0 - TRACHEOSTOMY STATUS Assessment/Plan IMP CHRONIC RESPIRATORY FAILURE ANOXIC BRAIN INJURY FEVER LIKELY UTI/UROSEPSIS AFIB SEIZURES HEP C FUNCTIONAL QUADRAPLEGIA CHF PLAN ABX D/Yung PER ID VENT SUPPORT ON AC MODE INHALED BRONCHODILATORS TRACHEAL SUCTIONING DR ALEXANDER Problem List - Problems (1) UTI (urinary tract infection) Code(s): N39.0 - URINARY TRACT INFECTION, SITE NOT SPECIFIED (2) Hepatitis C carrier Code(s): Z22.52 - (3) Seizure Code(s): R56.9 - UNSPECIFIED CONVULSIONS (4) Anemia Code(s): D64.9 - ANEMIA, UNSPECIFIED (5) Anoxic brain injury Code(s): G93.1 - ANOXIC BRAIN DAMAGE, NOT ELSEWHERE CLASSIFIED (6) Atrial fibrillation Code(s): I48.91 - UNSPECIFIED ATRIAL FIBRILLATION Qualifiers: Atrial fibrillation type: persistent Qualified Code(s): I48.1 - Persistent atrial fibrillation (7) Chronic respiratory failure Code(s): J96.10 - CHRONIC RESPIRATORY FAILURE, UNSP W HYPOXIA OR HYPERCAPNIA Qualifiers: Respiratory failure complication: unspecified whether with hypoxia or hypercapnia Qualified Code(s): J96.10 - Chronic respiratory failure, unspecified whether with hypoxia or hypercapnia (8) Quadriplegia, functional Code(s): R53.2 - FUNCTIONAL QUADRIPLEGIA (9) Tracheostomy tube present Code(s): Z93.0 - TRACHEOSTOMY STATUS
[2017-10-30] MEDS: SENNOSIDES 8.8 MG/5 ML BULK BOTTLE GT SCH (21:58)
[2017-10-31] MEDS: LEVOTHYROXINE NA 50 MCG TABLET (FP) PO SCH (06:41)
[2017-10-31] MEDS ORDERED: PT OWN MED DRAWER 7, Y5N ONE ×2 (08:55→21:57)
[2017-10-31] MEDS: AMINO ACIDS/PROTEIN HYDROLYS 30 ML LIQUID.PKT PO SCH ×2 (10:31→17:26)
[2017-10-31] MEDS: LACTOBACILLUS ACIDOPHILUS 1 TABLET GT SCH ×2 (10:31→22:19)
[2017-10-31] MEDS: AMIODARONE HCL 200 MG TABLET (FP) GT SCH (10:31)
[2017-10-31] MEDS: POTASSIUM CHLORIDE ORAL LIQUID 20 MEQ/15 ML GT SCH (10:32)
[2017-10-31] MEDS: APIXABAN 5 MG TABLET PO SCH ×2 (10:32→22:19)
[2017-10-31] MEDS: DIGOXIN 0.125 MG TABLET (FP) GT SCH (10:32)
[2017-10-31] MEDS: FUROSEMIDE 20 MG TABLET (FP) GT SCH (10:32)
[2017-10-31] MEDS: COLLAGENASE CLOSTRIDIUM HIST. 30 GRAMS TUBE TP SCH (10:33)
[2017-10-31] MEDS: ARTIFICIAL TEARS (POLYVINYL ALCOHOL 1.4%) OPTH DROPS OU SCH ×4 (10:33→22:19)
[2017-10-31] MEDS: METOPROLOL TARTRATE 50 MG TABLET (FP) GT SCH ×2 (10:36→22:19)
--- NOTE | 2017-10-31 11:35 | PN ---
Progress Note, Physician History of Present Illness: pulmonary no change,poorly responsive on vent support,ac mode. - Current Medication List Current Medications: Active Medications Acetaminophen (Tylenol Oral Solution -) 500 mg GT Q6H PRN PRN Reason: PAIN Last Admin: 10/28/17 14:42 Dose: 500 mg Amino Acids (Prosource No Carb Liquid Pkt) 30 ml PO BID@0800,1730 [facility] Last Admin: 10/31/17 10:31 Dose: 30 ml Amiodarone HCl (Cordarone -) 200 mg GT DAILY [facility] Last Admin: 10/31/17 10:31 Dose: 200 mg Apixaban (Eliquis -) 5 mg PO BID [facility] Last Admin: 10/31/17 10:32 Dose: 5 mg Artificial Tears (Artificial Tears) 1 drop OU QID [facility] Last Admin: 10/31/17 10:33 Dose: 1 drop Clotrimazole (Lotrisone Cream (Small Tube)) 1 applic TP DAILY PRN PRN Reason: AFTER CARE Q SHIFT Last Admin: 10/30/17 10:00 Dose: 1 applic Collagenase (Santyl -) 1 applic TP DAILY [facility]; Protocol Last Admin: 10/31/17 10:33 Dose: 1 applic Digoxin (Lanoxin -) 0.25 mg GT DAILY [facility] Last Admin: 10/31/17 10:32 Dose: 0.25 mg Furosemide (Lasix -) 20 mg GT DAILY [facility] Last Admin: 10/31/17 10:32 Dose: 20 mg Lactobacillus Acidophilus (Bacid -) 1 tab GT BID [facility] Last Admin: 10/31/17 10:31 Dose: 1 tab Levothyroxine Sodium (Synthroid -) 50 mcg PO DAILY@0700 [facility] Last Admin: 10/31/17 06:41 Dose: 50 mcg Metoprolol Tartrate (Lopressor -) 50 mg GT BID [facility] Last Admin: 10/31/17 10:36 Dose: 50 mg Potassium Chloride (Potassium Chloride Oral Liquid) 20 meq GT DAILY [facility] Last Admin: 10/31/17 10:32 Dose: 20 meq Senna (Senna Oral Solution -) 17.6 mg GT HS [facility] Last Admin: 10/30/17 21:58 Dose: 17.6 mg - Objective Vital Signs: Vital Signs Temperature 98.2 F 10/31/17 05:57 Pulse Rate 90 10/31/17 10:32 Respiratory Rate 16 10/31/17 09:00 Blood Pressure 122/77 10/31/17 05:57 O2 Sat by Pulse Oximetry (%) 99 10/31/17 06:34 Constitutional: Yes: Well Nourished, No Distress, Other (unresponsive) Eyes: Yes: WNL HENT: Yes: WNL Neck: Yes: Supple (trach) Cardiovascular: Yes: Pulse Irregular, S1, S2 Respiratory: Yes: Rhonchi (scattered rhonchi) Gastrointestinal: Yes: Normal Bowel Sounds, Soft Extremities: Yes: WNL Edema: Yes Labs: Problem List - Problems (1) UTI (urinary tract infection) Code(s): N39.0 - URINARY TRACT INFECTION, SITE NOT SPECIFIED (2) Hepatitis C carrier Code(s): Z22.52 - (3) Seizure Code(s): R56.9 - UNSPECIFIED CONVULSIONS (4) Anemia Code(s): D64.9 - ANEMIA, UNSPECIFIED (5) Anoxic brain injury Code(s): G93.1 - ANOXIC BRAIN DAMAGE, NOT ELSEWHERE CLASSIFIED (6) Atrial fibrillation Code(s): I48.91 - UNSPECIFIED ATRIAL FIBRILLATION Qualifiers: Atrial fibrillation type: persistent Qualified Code(s): I48.1 - Persistent atrial fibrillation (7) Chronic respiratory failure Code(s): J96.10 - CHRONIC RESPIRATORY FAILURE, UNSP W HYPOXIA OR HYPERCAPNIA Qualifiers: Respiratory failure complication: unspecified whether with hypoxia or hypercapnia Qualified Code(s): J96.10 - Chronic respiratory failure, unspecified whether with hypoxia or hypercapnia (8) Quadriplegia, functional Code(s): R53.2 - FUNCTIONAL QUADRIPLEGIA (9) Tracheostomy tube present Code(s): Z93.0 - TRACHEOSTOMY STATUS Assessment/Plan IMP CHRONIC RESPIRATORY FAILURE ANOXIC BRAIN INJURY FEVER LIKELY UTI/UROSEPSIS AFIB SEIZURES HEP C FUNCTIONAL QUADRAPLEGIA CHF PLAN ABX D/Yung PER ID VENT SUPPORT ON AC MODE INHALED BRONCHODILATORS TRACHEAL SUCTIONING DR ALEXANDER Problem List - Problems (1) UTI (urinary tract infection) Code(s): N39.0 - URINARY TRACT INFECTION, SITE NOT SPECIFIED (2) Hepatitis C carrier Code(s): Z22.52 - (3) Seizure Code(s): R56.9 - UNSPECIFIED CONVULSIONS (4) Anemia Code(s): D64.9 - ANEMIA, UNSPECIFIED (5) Anoxic brain injury Code(s): G93.1 - ANOXIC BRAIN DAMAGE, NOT ELSEWHERE CLASSIFIED (6) Atrial fibrillation Code(s): I48.91 - UNSPECIFIED ATRIAL FIBRILLATION Qualifiers: Atrial fibrillation type: persistent Qualified Code(s): I48.1 - Persistent atrial fibrillation (7) Chronic respiratory failure Code(s): J96.10 - CHRONIC RESPIRATORY FAILURE, UNSP W HYPOXIA OR HYPERCAPNIA Qualifiers: Respiratory failure complication: unspecified whether with hypoxia or hypercapnia Qualified Code(s): J96.10 - Chronic respiratory failure, unspecified whether with hypoxia or hypercapnia (8) Quadriplegia, functional Code(s): R53.2 - FUNCTIONAL QUADRIPLEGIA (9) Tracheostomy tube present Code(s): Z93.0 - TRACHEOSTOMY STATUS
--- NOTE | 2017-10-31 12:19 | PN ---
Progress Note (short form) - Note Progress Note: Vital Signs - 24 hr no distress still with low garde fevers 10/30/17 10/30/17 10/30/17 14:45 15:54 18:00 Temperature 100.4 F H 99.0 F Pulse Rate 94 H 92 H Respiratory 16 15 16 Rate Blood Pressure 114/68 103/67 O2 Sat by Pulse Oximetry (%) 10/30/17 10/30/17 10/30/17 18:28 21:00 21:37 Temperature Pulse Rate Respiratory 24 23 20 Rate Blood Pressure O2 Sat by Pulse Oximetry (%) 10/30/17 10/31/17 10/31/17 22:00 00:11 01:45 Temperature 99.9 F H 98.8 F Pulse Rate 97 H 84 Respiratory 23 17 20 Rate Blood Pressure 109/50 130/92 O2 Sat by Pulse Oximetry (%) 10/31/17 10/31/17 10/31/17 03:00 05:57 06:33 Temperature 98.2 F Pulse Rate 100 H Respiratory 16 24 20 Rate Blood Pressure 122/77 O2 Sat by Pulse Oximetry (%) 10/31/17 10/31/17 10/31/17 06:34 09:00 10:00 Temperature 100.0 F H Pulse Rate 97 H 90 Respiratory 16 21 Rate Blood Pressure 118/80 O2 Sat by Pulse 99 Oximetry (%) 10/31/17 10/31/17 10:32 11:00 Temperature 99.2 F Pulse Rate 90 Respiratory Rate Blood Pressure O2 Sat by Pulse Oximetry (%) Current Medications Generic Name Dose Route Start Last Admin Trade Name Freq PRN Reason Stop Dose Admin Acetaminophen 500 mg 10/24/17 17:55 10/28/17 14:42 Tylenol Oral Solution - GT 500 mg Q6H PRN Administration PAIN Amino Acids 30 ml 10/25/17 08:00 10/31/17 10:31 Prosource No Carb Liquid Pkt PO 30 ml BID@0800,1730 [facility] Administration Amiodarone HCl 200 mg 10/25/17 10:00 10/31/17 10:31 Cordarone - GT 200 mg DAILY [facility] Administration Apixaban 5 mg 10/24/17 22:00 10/31/17 10:32 Eliquis - PO 5 mg BID [facility] Administration Artificial Tears 1 drop 10/24/17 18:00 10/31/17 10:33 Artificial Tears OU 1 drop QID [facility] Administration Clotrimazole 1 applic 10/24/17 17:32 10/30/17 10:00 Lotrisone Cream (Small Tube) TP 1 applic DAILY PRN Administration AFTER CARE Q SHIFT Collagenase 1 applic 10/25/17 10:00 10/31/17 10:33 Santyl - TP 1 applic DAILY [facility] Administration Protocol Digoxin 0.25 mg 10/25/17 13:00 10/31/17 10:32 Lanoxin - GT 0.25 mg DAILY [facility] Administration Furosemide 20 mg 10/25/17 10:00 10/31/17 10:32 Lasix - GT 20 mg DAILY [facility] Administration Lactobacillus Acidophilus 1 tab 10/24/17 22:00 10/31/17 10:31 Bacid - GT 1 tab BID [facility] Administration Levothyroxine Sodium 50 mcg 10/26/17 07:00 10/31/17 06:41 Synthroid - PO 50 mcg DAILY@0700 [facility] Administration Metoprolol Tartrate 50 mg 10/24/17 22:00 10/31/17 10:36 Lopressor - GT 50 mg BID [facility] Administration Potassium Chloride 20 meq 10/25/17 10:00 10/31/17 10:32 Potassium Chloride Oral Liquid GT 20 meq DAILY [facility] Administration Senna 17.6 mg 10/24/17 22:00 10/30/17 21:58 Senna Oral Solution - GT 17.6 mg HS [facility] Administration S1 S2 irregular Vent dependent Abd- soft, NT, suprapubic cath+ No edema 'Penis condylomata PLAN still with low grade fever blood cultures repeated ID eval Problem List - Problems (1) UTI (urinary tract infection) Code(s): N39.0 - URINARY TRACT INFECTION, SITE NOT SPECIFIED (2) Anoxic brain injury Code(s): G93.1 - ANOXIC BRAIN DAMAGE, NOT ELSEWHERE CLASSIFIED (3) Atrial fibrillation Code(s): I48.91 - UNSPECIFIED ATRIAL FIBRILLATION Qualifiers: Atrial fibrillation type: persistent Qualified Code(s): I48.1 - Persistent atrial fibrillation (4) Chronic respiratory failure Code(s): J96.10 - CHRONIC RESPIRATORY FAILURE, UNSP W HYPOXIA OR HYPERCAPNIA Qualifiers: Respiratory failure complication: unspecified whether with hypoxia or hypercapnia Qualified Code(s): J96.10 - Chronic respiratory failure, unspecified whether with hypoxia or hypercapnia (5) Condylomata acuminata in male Code(s): A63.0 - ANOGENITAL (VENEREAL) WARTS (6) Quadriplegia, functional Code(s): R53.2 - FUNCTIONAL QUADRIPLEGIA (7) Sepsis Code(s): A41.9 - SEPSIS, UNSPECIFIED ORGANISM Qualifiers: Sepsis type: sepsis due to unspecified organism Qualified Code(s): A41.9 - Sepsis, unspecified organism (8) UTI (urinary tract infection) Code(s): N39.0 - URINARY TRACT INFECTION, SITE NOT SPECIFIED Qualifiers: Urinary tract infection type: site unspecified Hematuria presence: without hematuria Qualified Code(s): N39.0 - Urinary tract infection, site not specified
[2017-10-31 14:10] LABS: HEMATOCRIT 29.3 % (35.4-49); HEMOGLOBIN 9.8 GM/dL (11.7-16.9); MCH 32.2 pg (25.7-33.7); MCHC 33.4 g/dl (32.0-35.9); MEAN CELL VOLUME 96.4 fl (80-96); MEAN PLT VOLUME 9.7 fl (7.5-11.1); PLATELET COUNT 293 K/MM3 (134-434); RBC 3.03 M/mm3 (4.00-5.60); RDW 15.9 % (11.9-15.9); WHITE BLOOD COUNT 10.4 K/mm3 (4.0-10.0)
[2017-10-31 14:25] LABS: ANION GAP 7 (8-16); BLOOD UREA NITROGEN 24 mg/dL (7-18); CALCIUM 8.5 mg/dL (8.5-10.1); CHLORIDE 105 mmol/L (98-107); CO2 30 mmol/L (21-32); CREATININE 0.6 mg/dL (0.7-1.3); GLUCOSE,RANDOM 117 mg/dL (74-106); POTASSIUM 4.1 mmol/L (3.5-5.1); SODIUM 142 mmol/L (136-145)
--- NOTE | 2017-10-31 14:28 | PN ---
Progress Note (short form) - Note Progress Note: asked to f/u for low grade fever 100 antibiotics d/norma 10/27 SPT replaced no diarrhea Vital Signs Period Temp Pulse Resp BP Sys/Bhardwaj Pulse Ox Last 24 Hr 98.2 F-100.4 F 78-100 15- 103-130/50-92 99 trach to vent cor-rrr lungs clear abd soft, gt site clean spt site clean stage 2 sacral ulcer clean penile verruca venous stasis CBC, BMP 10/31/17 13:33 Microbiology 10/30/17 13:00 Blood - Peripheral Venous Blood Culture - Preliminary NO GROWTH OBTAINED AFTER 24 HOURS, INCUBATION TO CONTINUE FOR 4 DAYS. 10/30/17 12:45 Blood - Peripheral Venous Blood Culture - Preliminary NO GROWTH OBTAINED AFTER 24 HOURS, INCUBATION TO CONTINUE FOR 4 DAYS. 10/24/17 14:38 Blood - Peripheral Venous Blood Culture - Final NO GROWTH AFTER 5 DAYS INCUBATION 10/24/17 14:38 Blood - Peripheral Venous Blood Culture - Final NO GROWTH AFTER 5 DAYS INCUBATION 10/24/17 15:00 Urine - Urine Boucher Urine Culture - Final NO GROWTH OBTAINED cxray no infiltrate Active Medications Acetaminophen (Tylenol Oral Solution -) 500 mg GT Q6H PRN PRN Reason: PAIN Last Admin: 10/28/17 14:42 Dose: 500 mg Amino Acids (Prosource No Carb Liquid Pkt) 30 ml PO BID@0800,1730 [facility] Last Admin: 10/31/17 10:31 Dose: 30 ml Amiodarone HCl (Cordarone -) 200 mg GT DAILY [facility] Last Admin: 10/31/17 10:31 Dose: 200 mg Apixaban (Eliquis -) 5 mg PO BID [facility] Last Admin: 10/31/17 10:32 Dose: 5 mg Artificial Tears (Artificial Tears) 1 drop OU QID [facility] Last Admin: 10/31/17 14:11 Dose: 1 drop Clotrimazole (Lotrisone Cream (Small Tube)) 1 applic TP DAILY PRN PRN Reason: AFTER CARE Q SHIFT Last Admin: 10/30/17 10:00 Dose: 1 applic Collagenase (Santyl -) 1 applic TP DAILY [facility]; Protocol Last Admin: 10/31/17 10:33 Dose: 1 applic Digoxin (Lanoxin -) 0.25 mg GT DAILY [facility] Last Admin: 10/31/17 10:32 Dose: 0.25 mg Furosemide (Lasix -) 20 mg GT DAILY [facility] Last Admin: 10/31/17 10:32 Dose: 20 mg Lactobacillus Acidophilus (Bacid -) 1 tab GT BID [facility] Last Admin: 10/31/17 10:31 Dose: 1 tab Levothyroxine Sodium (Synthroid -) 50 mcg PO DAILY@0700 [facility] Last Admin: 10/31/17 06:41 Dose: 50 mcg Metoprolol Tartrate (Lopressor -) 50 mg GT BID [facility] Last Admin: 10/31/17 10:36 Dose: 50 mg Potassium Chloride (Potassium Chloride Oral Liquid) 20 meq GT DAILY [facility] Last Admin: 10/31/17 10:32 Dose: 20 meq Senna (Senna Oral Solution -) 17.6 mg GT HS [facility] Last Admin: 10/30/17 21:58 Dose: 17.6 mg a/p low grade temps- intermittent no clear source of fever chronic respiratory failure with function quadraplegia and anoxia observe off antibiotics history of MDRO continue contact isolation can consider repeat ct scan abd/pelvis if fevers persist
[2017-10-31] MEDS: SENNOSIDES 8.8 MG/5 ML BULK BOTTLE GT SCH (22:19)
[2017-11-01] MEDS: LEVOTHYROXINE NA 50 MCG TABLET (FP) PO SCH (06:17)
[2017-11-01 07:07] LABS: HEMATOCRIT 27.4 % (35.4-49); HEMOGLOBIN 9.4 GM/dL (11.7-16.9); MCH 33.1 pg (25.7-33.7); MCHC 34.3 g/dl (32.0-35.9); MEAN CELL VOLUME 96.5 fl (80-96); MEAN PLT VOLUME 9.5 fl (7.5-11.1); PLATELET COUNT 223 K/MM3 (134-434); RBC 2.84 M/mm3 (4.00-5.60); RDW 15.4 % (11.9-15.9); WHITE BLOOD COUNT 10.6 K/mm3 (4.0-10.0)
[2017-11-01] MEDS: AMINO ACIDS/PROTEIN HYDROLYS 30 ML LIQUID.PKT PO SCH ×2 (08:00→17:57)
[2017-11-01] MEDS: COLLAGENASE CLOSTRIDIUM HIST. 30 GRAMS TUBE TP SCH (11:45)
[2017-11-01] MEDS: CLOTRIMAZOLE/BETAMET DIPROP 15 GM TUBE TP PRN (11:45)
[2017-11-01] MEDS: ARTIFICIAL TEARS (POLYVINYL ALCOHOL 1.4%) OPTH DROPS OU SCH ×4 (11:45→22:46)
[2017-11-01] MEDS: POTASSIUM CHLORIDE ORAL LIQUID 20 MEQ/15 ML GT SCH (11:46)
[2017-11-01] MEDS: DIGOXIN 0.125 MG TABLET (FP) GT SCH (11:46)
[2017-11-01] MEDS: AMIODARONE HCL 200 MG TABLET (FP) GT SCH (11:47)
[2017-11-01] MEDS: FUROSEMIDE 20 MG TABLET (FP) GT SCH (11:47)
[2017-11-01] MEDS: METOPROLOL TARTRATE 50 MG TABLET (FP) GT SCH ×2 (11:47→22:45)
[2017-11-01] MEDS: LACTOBACILLUS ACIDOPHILUS 1 TABLET GT SCH ×2 (11:47→22:45)
[2017-11-01] MEDS ORDERED: PT OWN MED DRAWER 7, Y5N ONE ×2 (11:48→22:40)
[2017-11-01] MEDS: APIXABAN 5 MG TABLET PO SCH ×2 (11:51→22:45)
--- NOTE | 2017-11-01 11:58 | PN ---
Progress Note, Physician History of Present Illness: pulmonary awake,not responsive on vent support,Tmax 100.5 - Current Medication List Current Medications: Active Medications Acetaminophen (Tylenol Oral Solution -) 500 mg GT Q6H PRN PRN Reason: PAIN Last Admin: 10/28/17 14:42 Dose: 500 mg Amino Acids (Prosource No Carb Liquid Pkt) 30 ml PO BID@0800,1730 [facility] Last Admin: 11/01/17 08:00 Dose: 30 ml Amiodarone HCl (Cordarone -) 200 mg GT DAILY [facility] Last Admin: 11/01/17 11:47 Dose: 200 mg Apixaban (Eliquis -) 5 mg PO BID [facility] Last Admin: 11/01/17 11:51 Dose: 5 mg Artificial Tears (Artificial Tears) 1 drop OU QID [facility] Last Admin: 11/01/17 11:45 Dose: 1 drop Clotrimazole (Lotrisone Cream (Small Tube)) 1 applic TP DAILY PRN PRN Reason: AFTER CARE Q SHIFT Last Admin: 11/01/17 11:45 Dose: 1 applic Collagenase (Santyl -) 1 applic TP DAILY [facility]; Protocol Last Admin: 11/01/17 11:45 Dose: 1 applic Digoxin (Lanoxin -) 0.25 mg GT DAILY [facility] Last Admin: 11/01/17 11:46 Dose: 0.25 mg Furosemide (Lasix -) 20 mg GT DAILY [facility] Last Admin: 11/01/17 11:47 Dose: 20 mg Lactobacillus Acidophilus (Bacid -) 1 tab GT BID [facility] Last Admin: 11/01/17 11:47 Dose: 1 tab Levothyroxine Sodium (Synthroid -) 50 mcg PO DAILY@0700 [facility] Last Admin: 11/01/17 06:17 Dose: 50 mcg Metoprolol Tartrate (Lopressor -) 50 mg GT BID [facility] Last Admin: 11/01/17 11:47 Dose: 50 mg Potassium Chloride (Potassium Chloride Oral Liquid) 20 meq GT DAILY [facility] Last Admin: 11/01/17 11:46 Dose: 20 meq Senna (Senna Oral Solution -) 17.6 mg GT HS [facility] Last Admin: 10/31/17 22:19 Dose: 17.6 mg - Objective Vital Signs: Vital Signs Temperature 98.9 F 11/01/17 06:00 Pulse Rate 88 11/01/17 11:46 Respiratory Rate 21 11/01/17 10:17 Blood Pressure 115/64 11/01/17 06:00 O2 Sat by Pulse Oximetry (%) 98 11/01/17 10:17 Constitutional: Yes: Well Nourished, Other (awake,not responsive) Eyes: Yes: WNL HENT: Yes: WNL Neck: Yes: Supple (trach) Cardiovascular: Yes: Pulse Irregular, S1, S2 Respiratory: Yes: Rhonchi (few scattered rhonchi) Gastrointestinal: Yes: Normal Bowel Sounds, Soft Extremities: Yes: WNL Edema: Yes Labs: CBC, BMP 11/01/17 06:00 10/31/17 13:33 INR, PTT INR 1.28 (0.82-1.09) H 10/24/17 Unknown Problem List - Problems (1) UTI (urinary tract infection) Code(s): N39.0 - URINARY TRACT INFECTION, SITE NOT SPECIFIED (2) Hepatitis C carrier Code(s): Z22.52 - (3) Seizure Code(s): R56.9 - UNSPECIFIED CONVULSIONS (4) Anemia Code(s): D64.9 - ANEMIA, UNSPECIFIED (5) Anoxic brain injury Code(s): G93.1 - ANOXIC BRAIN DAMAGE, NOT ELSEWHERE CLASSIFIED (6) Atrial fibrillation Code(s): I48.91 - UNSPECIFIED ATRIAL FIBRILLATION Qualifiers: Atrial fibrillation type: persistent Qualified Code(s): I48.1 - Persistent atrial fibrillation (7) Chronic respiratory failure Code(s): J96.10 - CHRONIC RESPIRATORY FAILURE, UNSP W HYPOXIA OR HYPERCAPNIA Qualifiers: Respiratory failure complication: unspecified whether with hypoxia or hypercapnia Qualified Code(s): J96.10 - Chronic respiratory failure, unspecified whether with hypoxia or hypercapnia (8) Quadriplegia, functional Code(s): R53.2 - FUNCTIONAL QUADRIPLEGIA (9) Tracheostomy tube present Code(s): Z93.0 - TRACHEOSTOMY STATUS Assessment/Plan IMP CHRONIC RESPIRATORY FAILURE ANOXIC BRAIN INJURY FEVER AFIB SEIZURES HEP C FUNCTIONAL QUADRAPLEGIA CHF PLAN ABX D/Yung PER ID VENT SUPPORT ON AC MODE INHALED BRONCHODILATORS TRACHEAL SUCTIONING DR ALEXANDER Problem List - Problems (1) UTI (urinary tract infection) Code(s): N39.0 - URINARY TRACT INFECTION, SITE NOT SPECIFIED (2) Hepatitis C carrier Code(s): Z22.52 - (3) Seizure Code(s): R56.9 - UNSPECIFIED CONVULSIONS (4) Anemia Code(s): D64.9 - ANEMIA, UNSPECIFIED (5) Anoxic brain injury Code(s): G93.1 - ANOXIC BRAIN DAMAGE, NOT ELSEWHERE CLASSIFIED (6) Atrial fibrillation Code(s): I48.91 - UNSPECIFIED ATRIAL FIBRILLATION Qualifiers: Atrial fibrillation type: persistent Qualified Code(s): I48.1 - Persistent atrial fibrillation (7) Chronic respiratory failure Code(s): J96.10 - CHRONIC RESPIRATORY FAILURE, UNSP W HYPOXIA OR HYPERCAPNIA Qualifiers: Respiratory failure complication: unspecified whether with hypoxia or hypercapnia Qualified Code(s): J96.10 - Chronic respiratory failure, unspecified whether with hypoxia or hypercapnia (8) Quadriplegia, functional Code(s): R53.2 - FUNCTIONAL QUADRIPLEGIA (9) Tracheostomy tube present Code(s): Z93.0 - TRACHEOSTOMY STATUS
--- NOTE | 2017-11-01 12:23 | PN ---
Progress Note, Physician Chief Complaint: currently afebrile no distress comfortable - Current Medication List Current Medications: Active Medications Acetaminophen (Tylenol Oral Solution -) 500 mg GT Q6H PRN PRN Reason: PAIN Last Admin: 10/28/17 14:42 Dose: 500 mg Amino Acids (Prosource No Carb Liquid Pkt) 30 ml PO BID@0800,1730 [facility] Last Admin: 11/01/17 08:00 Dose: 30 ml Amiodarone HCl (Cordarone -) 200 mg GT DAILY [facility] Last Admin: 11/01/17 11:47 Dose: 200 mg Apixaban (Eliquis -) 5 mg PO BID [facility] Last Admin: 11/01/17 11:51 Dose: 5 mg Artificial Tears (Artificial Tears) 1 drop OU QID [facility] Last Admin: 11/01/17 11:45 Dose: 1 drop Clotrimazole (Lotrisone Cream (Small Tube)) 1 applic TP DAILY PRN PRN Reason: AFTER CARE Q SHIFT Last Admin: 11/01/17 11:45 Dose: 1 applic Collagenase (Santyl -) 1 applic TP DAILY [facility]; Protocol Last Admin: 11/01/17 11:45 Dose: 1 applic Digoxin (Lanoxin -) 0.25 mg GT DAILY [facility] Last Admin: 11/01/17 11:46 Dose: 0.25 mg Furosemide (Lasix -) 20 mg GT DAILY [facility] Last Admin: 11/01/17 11:47 Dose: 20 mg Lactobacillus Acidophilus (Bacid -) 1 tab GT BID [facility] Last Admin: 11/01/17 11:47 Dose: 1 tab Levothyroxine Sodium (Synthroid -) 50 mcg PO DAILY@0700 [facility] Last Admin: 11/01/17 06:17 Dose: 50 mcg Metoprolol Tartrate (Lopressor -) 50 mg GT BID [facility] Last Admin: 11/01/17 11:47 Dose: 50 mg Potassium Chloride (Potassium Chloride Oral Liquid) 20 meq GT DAILY [facility] Last Admin: 11/01/17 11:46 Dose: 20 meq Senna (Senna Oral Solution -) 17.6 mg GT HS [facility] Last Admin: 10/31/17 22:19 Dose: 17.6 mg - Objective Vital Signs: Vital Signs Temperature 98.9 F 11/01/17 06:00 Pulse Rate 88 11/01/17 11:46 Respiratory Rate 21 11/01/17 10:17 Blood Pressure 115/64 11/01/17 06:00 O2 Sat by Pulse Oximetry (%) 98 11/01/17 10:17 Constitutional: Yes: No Distress, Calm Cardiovascular: Yes: Regular Rate and Rhythm Respiratory: Yes: Mechanically Ventilated Gastrointestinal: Yes: Normal Bowel Sounds, Soft. No: Tenderness Edema: No Labs: CBC, BMP 11/01/17 06:00 10/31/17 13:33 INR, PTT INR 1.28 (0.82-1.09) H 10/24/17 Unknown Problem List - Problems (1) UTI (urinary tract infection) Code(s): N39.0 - URINARY TRACT INFECTION, SITE NOT SPECIFIED (2) Anoxic brain injury Code(s): G93.1 - ANOXIC BRAIN DAMAGE, NOT ELSEWHERE CLASSIFIED (3) Atrial fibrillation Code(s): I48.91 - UNSPECIFIED ATRIAL FIBRILLATION Qualifiers: Atrial fibrillation type: persistent Qualified Code(s): I48.1 - Persistent atrial fibrillation (4) Chronic respiratory failure Code(s): J96.10 - CHRONIC RESPIRATORY FAILURE, UNSP W HYPOXIA OR HYPERCAPNIA Qualifiers: Respiratory failure complication: unspecified whether with hypoxia or hypercapnia Qualified Code(s): J96.10 - Chronic respiratory failure, unspecified whether with hypoxia or hypercapnia (5) Condylomata acuminata in male Code(s): A63.0 - ANOGENITAL (VENEREAL) WARTS (6) Quadriplegia, functional Code(s): R53.2 - FUNCTIONAL QUADRIPLEGIA (7) Sepsis Code(s): A41.9 - SEPSIS, UNSPECIFIED ORGANISM Qualifiers: Sepsis type: sepsis due to unspecified organism Qualified Code(s): A41.9 - Sepsis, unspecified organism (8) UTI (urinary tract infection) Code(s): N39.0 - URINARY TRACT INFECTION, SITE NOT SPECIFIED Qualifiers: Urinary tract infection type: site unspecified Hematuria presence: without hematuria Qualified Code(s): N39.0 - Urinary tract infection, site not specified Assessment/Plan PLAN iv antibiotics discontinued ID follow up noted if he develops fever- will order CT scan currently afebrile blood cultures were repeated and are negative Urine cultures negative s/p Suprapubic catheter replacement continue with meds Rate is controlled if no further elevated temps, will dc in AM
--- NOTE | 2017-11-01 13:35 | DS ---
Physical Examination Vital Signs: Vital Signs Temperature 98.6 F 11/01/17 13:03 Pulse Rate 86 11/01/17 13:03 Respiratory Rate 18 11/01/17 13:03 Blood Pressure 115/71 11/01/17 13:03 O2 Sat by Pulse Oximetry (%) 98 11/01/17 10:17 Labs: CBC, BMP 11/01/17 06:00 10/31/17 13:33 Discharge Summary Reason For Visit: URINARY TRACT INFECTION Current Active Problems Fever (Acute) UTI (urinary tract infection) (Acute) Hospital Course: see progress note- pt being discharged as he has no further temps, cultures negative Condition: Stable - Instructions Referrals: Robert Curiel MD [Staff Physician] - Lashawn Boucher MD [Staff Physician] - Disposition: LONG-TERM FACILITY - Home Medications Comprehensive Discharge Medication List: Ambulatory Orders Acetaminophen [Tylenol .Extra-Strength -] 500 mg GT Q6H PRN 07/31/17 Hypromellose 0.5% Opth Soln [Artificial Tears] 1 drop OU QID 07/31/17 Sennosides [Senna] 10 ml GT HS 07/31/17 Metoprolol Tartrate [Lopressor -] 50 mg GT BID #60 tablet 08/10/17 Acidoph/L.bulg/Bif.b/S.thermop [Bacid Caplet] 1 each GT BID 10/24/17 Albuterol 0.083% Nebulizer Nora [Ventolin 0.083% Nebulizer Soln -] 1 neb NEB Q4H PRN 10/24/17 Amiodarone HCl [Cordarone -] 200 mg GT DAILY 10/24/17 Apixaban [Eliquis -] 5 mg GT BID 10/24/17 Clotrimazole [Lotrimin -] 1 applic TP BID 10/24/17 Clotrimazole/Betamet Diprop [Lotrisone -] 1 applic TP DAILY PRN 10/24/17 Collagenase Clostridium Hist. [Santyl -] 1 applic TP TID PRN 10/24/17 Digoxin [Lanoxin -] 0.25 mg GT DAILY 10/24/17 Furosemide [Lasix -] 20 mg GT DAILY 10/24/17 Potassium Chloride [Potassium Chloride Oral Liquid] 20 meq GT DAILY 10/24/17 Tolnaftate 1% Powder [Tinactin 1% Powder -] 1 applic TP BID PRN 10/24/17 Zinc Oxide 20% Topical Oint 454 gm NR BID PRN 10/24/17
[2017-11-01] MEDS: SENNOSIDES 8.8 MG/5 ML BULK BOTTLE GT SCH (22:45)
[2017-11-02] MEDS: LEVOTHYROXINE NA 50 MCG TABLET (FP) PO SCH (07:08)
[2017-11-02] MEDS: AMINO ACIDS/PROTEIN HYDROLYS 30 ML LIQUID.PKT PO SCH (08:00)
[2017-11-02] MEDS ORDERED: PT OWN MED DRAWER 7, Y5N ONE (10:32)
[2017-11-02 10:38] VITALS: BP 94/57; PULSE 86; TEMP 98.4
[2017-11-02] MEDS: APIXABAN 5 MG TABLET PO SCH (10:39)
[2017-11-02] MEDS: POTASSIUM CHLORIDE ORAL LIQUID 20 MEQ/15 ML GT SCH (10:39)
[2017-11-02] MEDS: DIGOXIN 0.125 MG TABLET (FP) GT SCH (10:39)
[2017-11-02] MEDS: METOPROLOL TARTRATE 50 MG TABLET (FP) GT SCH (10:39)
[2017-11-02] MEDS: LACTOBACILLUS ACIDOPHILUS 1 TABLET GT SCH (10:39)
[2017-11-02] MEDS: FUROSEMIDE 20 MG TABLET (FP) GT SCH (10:39)
[2017-11-02] MEDS: AMIODARONE HCL 200 MG TABLET (FP) GT SCH (10:39)
[2017-11-02] MEDS: ARTIFICIAL TEARS (POLYVINYL ALCOHOL 1.4%) OPTH DROPS OU SCH (10:40)
[2017-11-02] MEDS: COLLAGENASE CLOSTRIDIUM HIST. 30 GRAMS TUBE TP SCH (10:40)
[2017-11-02] MEDS: CLOTRIMAZOLE/BETAMET DIPROP 15 GM TUBE TP PRN (10:40)
--- NOTE | 2017-11-02 11:56 | PN ---
Progress Note (short form) - Note Progress Note: afebrile no distress Vital Signs - 24 hr 11/01/17 11/01/17 11/01/17 13:03 14:34 18:41 Temperature 98.6 F 98.6 F Pulse Rate 86 73 Respiratory 18 13 18 Rate Blood Pressure 115/71 104/52 11/01/17 11/01/17 11/01/17 19:08 21:00 21:30 Temperature Pulse Rate Respiratory 23 18 20 Rate Blood Pressure 11/01/17 11/02/17 11/02/17 22:00 01:23 02:11 Temperature 98.3 F 99.9 F H Pulse Rate 92 H 65 Respiratory 18 17 18 Rate Blood Pressure 124/62 111/68 11/02/17 11/02/17 11/02/17 06:00 08:30 10:00 Temperature 99.2 F 98.4 F Pulse Rate 81 86 Respiratory 18 14 17 Rate Blood Pressure 113/49 94/57 11/02/17 10:39 Temperature Pulse Rate 86 Respiratory Rate Blood Pressure Current Medications Generic Name Dose Route Start Last Admin Trade Name Freq PRN Reason Stop Dose Admin Acetaminophen 500 mg 10/24/17 17:55 10/28/17 14:42 Tylenol Oral Solution - GT 500 mg Q6H PRN Administration PAIN Amino Acids 30 ml 10/25/17 08:00 11/02/17 08:00 Prosource No Carb Liquid Pkt PO 30 ml BID@0800,1730 JESUS Administration Amiodarone HCl 200 mg 10/25/17 10:00 11/02/17 10:39 Cordarone - GT 200 mg DAILY JESUS Administration Apixaban 5 mg 10/24/17 22:00 11/02/17 10:39 Eliquis - PO 5 mg BID JESUS Administration Artificial Tears 1 drop 10/24/17 18:00 11/02/17 10:40 Artificial Tears OU 1 drop QID JESUS Administration Clotrimazole 1 applic 10/24/17 17:32 11/02/17 10:40 Lotrisone Cream (Small Tube) TP 1 applic DAILY PRN Administration AFTER CARE Q SHIFT Collagenase 1 applic 10/25/17 10:00 11/02/17 10:40 Santyl - TP 1 applic DAILY JESUS Administration Protocol Digoxin 0.25 mg 10/25/17 13:00 11/02/17 10:39 Lanoxin - GT 0.25 mg DAILY JESUS Administration Furosemide 20 mg 10/25/17 10:00 11/02/17 10:39 Lasix - GT 20 mg DAILY JESUS Administration Lactobacillus Acidophilus 1 tab 10/24/17 22:00 11/02/17 10:39 Bacid - GT 1 tab BID JESUS Administration Levothyroxine Sodium 50 mcg 10/26/17 07:00 11/02/17 07:08 Synthroid - PO 50 mcg DAILY@0700 JESUS Administration Metoprolol Tartrate 50 mg 10/24/17 22:00 11/02/17 10:39 Lopressor - GT Not Given BID JESUS Potassium Chloride 20 meq 10/25/17 10:00 11/02/17 10:39 Potassium Chloride Oral Liquid GT 20 meq DAILY JESUS Administration Senna 17.6 mg 10/24/17 22:00 11/01/17 22:45 Senna Oral Solution - GT 17.6 mg HS JESUS Administration S1 S2 irregular Vent dependent Abd- soft, NT, suprapubic cath+ No edema 'Penis condylomata PLAN Afebrile cultures negative stable for dc to [place] Problem List - Problems (1) UTI (urinary tract infection) Code(s): N39.0 - URINARY TRACT INFECTION, SITE NOT SPECIFIED (2) Anoxic brain injury Code(s): G93.1 - ANOXIC BRAIN DAMAGE, NOT ELSEWHERE CLASSIFIED (3) Atrial fibrillation Code(s): I48.91 - UNSPECIFIED ATRIAL FIBRILLATION Qualifiers: Atrial fibrillation type: persistent Qualified Code(s): I48.1 - Persistent atrial fibrillation (4) Chronic respiratory failure Code(s): J96.10 - CHRONIC RESPIRATORY FAILURE, UNSP W HYPOXIA OR HYPERCAPNIA Qualifiers: Respiratory failure complication: unspecified whether with hypoxia or hypercapnia Qualified Code(s): J96.10 - Chronic respiratory failure, unspecified whether with hypoxia or hypercapnia (5) Condylomata acuminata in male Code(s): A63.0 - ANOGENITAL (VENEREAL) WARTS (6) Quadriplegia, functional Code(s): R53.2 - FUNCTIONAL QUADRIPLEGIA (7) Sepsis Code(s): A41.9 - SEPSIS, UNSPECIFIED ORGANISM Qualifiers: Sepsis type: sepsis due to unspecified organism Qualified Code(s): A41.9 - Sepsis, unspecified organism (8) UTI (urinary tract infection) Code(s): N39.0 - URINARY TRACT INFECTION, SITE NOT SPECIFIED Qualifiers: Urinary tract infection type: site unspecified Hematuria presence: without hematuria Qualified Code(s): N39.0 - Urinary tract infection, site not specified
== END 2017-11-02 12:54 | DRG 698 ==
LOC: JER 12:38 → JERBED 17:16 → J5S 21:23
PROVIDERS: ADMIT Internal Medicine; ATTEND Internal Medicine
PROC: 0T2BX0Z Change Drainage Device in Bladder, External Approach (ICD-10-PCS; principal; 2017-10-24)
DX: T83.020A Displacement of cystostomy catheter, initial encounter (principal); R53.2 Functional quadriplegia; N39.0 Urinary tract infection, site not specified; J96.10 Chronic respiratory failure, unspecified whether with hypoxia or hypercapnia; I50.22 Chronic systolic (congestive) heart failure; G40.89 Other seizures; G93.1 Anoxic brain damage, not elsewhere classified; Z93.0 Tracheostomy status; Z66 Do not resuscitate; D64.9 Anemia, unspecified; J44.9 Chronic obstructive pulmonary disease, unspecified; K21.9 Gastro-esophageal reflux disease without esophagitis; E03.9 Hypothyroidism, unspecified; I48.91 Unspecified atrial fibrillation; Z86.718 Personal history of other venous thrombosis and embolism; Z85.49 Personal history of malignant neoplasm of other male genital organs; Z87.891 Personal history of nicotine dependence; Z93.1 Gastrostomy status; I11.0 Hypertensive heart disease with heart failure; Y84.6 Urinary catheterization as the cause of abnormal reaction of the patient, or of later complication, without mention of misadventure at the time of the procedure; A63.0 Anogenital (venereal) warts; L89.152 Pressure ulcer of sacral region, stage 2; R09.02 Hypoxemia
CPT/HCPCS: 36415; 71045-TC-FY; 75984-FY; 76000-TC-FY; 80048; 80053; 81003; 81015; 82803; 83605; 83735; 84443; 84484; 85025; 85027; 85610; 85651; 85730; 86140; 87040; 87086; 93005; 93010; 94002; 99284-25; A4314; A4358; J0131

== ENCOUNTER 2018-01-09 07:36 | Emergency (ER) | payer OTHER ==
--- NOTE | 2018-01-09 07:57 | PDOC ---
History of Present Illness - General Stated Complaint: SEIZURE Time Seen by Provider: 01/09/18 07:54 History Source: EMS, Skilled Nursing Records, Old Records Exam Limitations: Clinical Condition - History of Present Illness Initial Comments: 62 y/o male presenting to [facility] ER via ambulance from [facility]. Pt is s/p anoxic brain injury secondary to [place] and in a permanent vegetative state. Per EMS and transfer paperwork, pt has exhibiting increased shaking during the night. The movements are baseline for the pt. No history of seizure disorder. He was given 500mg Keppra and 2mg Ativan by [facility] staff physician. Pt has a suprapubic catheter in place, and was recently treated as outpatient for UTI by unknown antibiotic. No UA or culture data provided. PCP: Rc Bah Hx: - Vegetative state 2/2 Anoxic brain injury 2/2 [place] in May 2017 - Ventilator dependent - Afib on Eliquis - Enterocolitis d/t c.Diff on Bacid Capsule - Dry eye syndrome - GERD with esophagitis - Rheumatic mitral valve disease - Hypertension and Hypotension - Chronic pressure ulcers - Pain disorder, unspecified - Anemia, unspecified - Hypothyroid - Typhoid fever Surgical Hx: - Tracheostomy - Peg tube placement - Suprapubic catheter placement Past History - Past Medical History Allergies/Adverse Reactions: Allergies Allergy/AdvReac Type Severity Reaction Status Date / Time No Known Allergies Allergy Verified 01/09/18 07:59 Home Medications: Ambulatory Orders Acetaminophen [Tylenol .Extra-Strength -] 500 mg GT Q6H PRN 07/31/17 Hypromellose 0.5% Opth Soln [Artificial Tears] 1 drop OU QID 07/31/17 Sennosides [Senna] 10 ml GT HS 07/31/17 Metoprolol Tartrate [Lopressor -] 50 mg GT BID #60 tablet 08/10/17 Acidoph/L.bulg/Bif.b/S.thermop [Bacid Caplet] 1 each GT BID 10/24/17 Albuterol 0.083% Nebulizer Nora [Ventolin 0.083% Nebulizer Soln -] 1 neb NEB Q4H PRN 10/24/17 Amiodarone HCl [Cordarone -] 200 mg GT DAILY 10/24/17 Apixaban [Eliquis -] 5 mg GT BID 10/24/17 Clotrimazole [Lotrimin -] 1 applic TP BID 10/24/17 Clotrimazole/Betamet Diprop [Lotrisone -] 1 applic TP DAILY PRN 10/24/17 Collagenase Clostridium Hist. [Santyl -] 1 applic TP TID PRN 10/24/17 Digoxin [Lanoxin -] 0.25 mg GT DAILY 10/24/17 Furosemide [Lasix -] 20 mg GT DAILY 10/24/17 Potassium Chloride [Potassium Chloride Oral Liquid] 20 meq GT DAILY 10/24/17 Tolnaftate 1% Powder [Tinactin 1% Powder -] 1 applic TP BID PRN 10/24/17 Zinc Oxide 20% Topical Oint 454 gm NR BID PRN 10/24/17 Cephalexin [Keflex Suspension] 500 mg GT BID 7 Days #140 ml 01/09/18 levETIRAcetam [Keppra Oral Solution -] 500 mg GT BID #1 bottle 01/09/18 Anemia: Yes Asthma: No Cancer: Yes (malignant neoplasm of penis, scrotum,) Cardiac Disorders: Yes (RHEUMATIC MITRAL VALVE DISEASE, atrial fibrillation) CVA: No COPD: Yes CHF: No Dementia: No Diabetes: No GI Disorders: Yes (gerd) Disorders: No HTN: Yes Hypercholesterolemia: No Kidney Stones: No Liver Disease: No Seizures: Yes (drug related seizure 12/2012) Thyroid Disease: Yes (HYPOTHYROID) - Surgical History Abdominal Surgery: No Appendectomy: No Cardiac Surgery: No Cholecystectomy: No Lung Surgery: No Neurologic Surgery: No Orthopedic Surgery: No - Reproductive History Testicular Surgery: No - Suicide/Smoking/Psychosocial Hx Smoking History: Never smoked Have you smoked in the past 12 months: No If you are a former smoker, when did you quit?: 9 years ago Hx Alcohol Use: No Drug/Substance Use Hx: No Substance Use Type: None Hx Substance Use Treatment: Yes ([facility]) Review of Systems - Review of Systems Able to Perform ROS?: No Comments:: Pt in vegetative state. *Physical Exam - Physical Exam Comments: Constitutional: Nontoxic male in no acute distress or obvious discomfort. Found fowlers with trach on vent. Eyes open. HEENT: Normocephalic. No obvious external signs of trauma. No nasal discharge. Neck is supple, trachea is midline. Cardiovascular: Irregularly irregular rate and rhythm. No murmur, rubs, clicks , or gallops. Peripheral pulses: Radial pulses full. Respiratory: VCV at 22 rate on ventilator. Equal chest rise and fall. Clear to auscultation bilaterally. No stridor, no wheezing, no rhonchi. Gastrointestinal: abdomen is soft and nondistended. Neuro: decerebrate posturing to painful stimuli. Pupils 3mm bilaterally and PERRL. Skin: Warm and dry. No bruising or rashes. : Suprapubic catheter in place. ED Treatment Course - LABORATORY CBC & Chemistry Diagram: 01/09/18 09:01 01/09/18 09:01 Medical Decision Making - Medical Decision Making *Reviewed vital signs, nursing notes, and prior visit documentation (if available). 62 y/o male in vegetative state with increased shaking. No seizure disorder history. Loaded with Keppra and Ativan at SNF. Afebrile. Vitals remarkable for borderline hypotension without tachycardia. Physical exam unrevealing. Suspect progression of brain injury versus seizures. D/D also includes rigors secondary to infection but seems less likely given pt is afebrile. Will obtain non-con CT head, CBC, CMP, EKG, and Digoxin level. Ordered NS IVFB. EKG: Atrial fibrillation with a ventricular rate of [address] segment elevation or depression. Head CT: Diffuse decreased attenuation with loss of thompson-white junction and paucity/effacement of sulci. All consistent with h/o anoxic brain injury. Also noted diffuse moderate to marked ventriculomegaly including temporal horns compatible with hydrocephalus. Difficult to interpret without previous studies for comparison. 12:11 Changed suprapubic catheter. Awaiting urination for UA and culture. Laboratory results delayed in lab department processing. CBC unremarkable for anemia or leukocytosis. CMP unremarkable for electrolyte derangement. LFTs not elevated. Elevated BUN without elevation in Cr. Suspect secondary to dehydration. Low suspicion for ODALIS. Digoxin level in therapeutic range. Low suspicion for toxicity. UA revealed pyuria and 3+ leukocyte esterase but no nitrites. Will call [facility] to possibly obtain urine culture data and antibiotic 13:33 Telephone call with pts [facility] nurse. Reports pt was on three day course of Bactrim which completed on 01/05/18. Nurse from facility will send recent urine culture data once it results later today, but was able to report it was positive for Morganella. Concern that either Bactrim course was too short or the strain is not sensitive. Will prescribed Keflex. Urine culture from this encounter is pending. Low suspicion for new onset seizures as no seizure like activity witnessed during this encounter. However, given pt's state and difficulty in examination without EEG will prescribed short term course of Keppra until pt is able to be evaluated by outpatient neurology. [facility] will manage this arrangement. Loading dose of Keppra and first dose of Keflex administered in the department. Copies of results from todays encounter provided in discharge packet. Received fax from [facility] with sensitivity data from urine culture dated 2017. Grew >1000,000 CFU of Morganella Morganii (R Amox/Clauv, ampicillin, gentamicin, imipenem, nitrofurantoin, tobramycin, and trimethoprim/sulfa). Keflex remains appropriate given this data. 15:37 Bedside conversation with pts life partner, Huyen Rojas. Discussed results and plan. *DC/Admit/Observation/Transfer Diagnosis at time of Disposition: UTI (urinary tract infection) Qualifiers: Urinary tract infection type: catheter-associated UTI Indwelling urinary catheter type: cystostomy catheter Encounter type: initial encounter Qualified Code(s): T83.510A - Infection and inflammatory reaction due to cystostomy catheter, initial encounter - Discharge Dispostion Disposition: [facility] FAC[facility] Condition at time of disposition: Stable Decision to Admit order: No - Prescriptions Prescriptions: Cephalexin [Keflex Suspension] 500 mg GT BID 7 Days #140 ml levETIRAcetam [Keppra Oral Solution -] 500 mg GT BID #1 bottle - Referrals - Patient Instructions Additional Instructions: Pt's urinalysis is suggestive for an infection. I have sent a prescription for Keflex 500mg BID to Pharmacy. Pt's bood lab results and head CT were unremarkable for this pt. His digoxin level is therapeutic. Low suspicion for seizure activity but will continue Keppra 500mg BID therapy. Pt should have neurological evaluation as outpatient. Pt received single dose of Keflex 500mg and Keppra 1000mg in the department today. He should start his new prescriptions tomorrow (01/10/2018). Pt should follow up with his primary care physician. Copies of the laboratory and imaging results are attached to this packet. Return to the emergency department if symptoms worsen. Print Language: WOLOF - Post Discharge Activity
[2018-01-09 08:04] VITALS: BMI 29.2
[2018-01-09] MEDS ORDERED: SODIUM CHLORIDE 0.9% 1000 ML INFUS.BAG IV ONE (09:03)
[2018-01-09 09:13] LABS: BASO % 0.6 % (0-2.0); EOS % 5.1 % (0-4.5); HEMATOCRIT 38.3 % (35.4-49); HEMOGLOBIN 12.6 GM/dL (11.7-16.9); LYMPH % 23.4 % (8-40); MCH 32.1 pg (25.7-33.7); MCHC 32.9 g/dl (32.0-35.9); MEAN CELL VOLUME 97.7 fl (80-96); MEAN PLT VOLUME 9.6 fl (7.5-11.1); MONO % 4.5 % (3.8-10.2); NEUT % 66.4 % (42.8-82.8); PLATELET COUNT 174 K/MM3 (134-434); RBC 3.92 M/mm3 (4.00-5.60); RDW 15.3 % (11.9-15.9); WHITE BLOOD COUNT 5.5 K/mm3 (4.0-10.0)
[2018-01-09 12:23] LABS: ALK PHOS 115 U/L (45-117); ANION GAP 2 MMOL/L (8-16); BILIRUBIN,TOTAL 0.2 mg/dL (0.2-1); BLOOD UREA NITROGEN 37 mg/dL (7-18); CHLORIDE 114 mmol/L (98-107); CO2 22 mmol/L (21-32); CREATININE 0.7 mg/dL (0.55-1.3); GLUCOSE,RANDOM 102 mg/dL (74-106); POTASSIUM 3.6 mmol/L (3.5-5.1); SGOT/AST 62 U/L (15-37); SGPT/ALT 63 U/L (13-61); SODIUM 138 mmol/L (136-145); TOT PROT 7.1 g/dl (6.4-8.2)
--- NOTE | 2018-01-09 13:05 | EKG ---
Test Reason : Blood Pressure : / mmHG Vent. Rate : 069 BPM Atrial Rate : 220 BPM P-R Int : 000 ms QRS Dur : 088 ms QT Int : 322 ms P-R-T Axes : 000 -38 138 degrees QTc Int : 345 ms POOR DATA QUALITY, INTERPRETATION MAY BE ADVERSELY AFFECTED ATRIAL FIBRILLATION WITH PREMATURE VENTRICULAR OR ABERRANTLY CONDUCTED COMPLEXES LEFT AXIS DEVIATION LOW VOLTAGE QRS CANNOT RULE OUT ANTERIOR INFARCT , AGE UNDETERMINED ABNORMAL ECG Confirmed by Romulo Solis MD ([id number]) on 01/09/2018 1:04:52 PM Referred By: Confirmed By:Romulo Solis MD
[2018-01-09 13:14] LABS: URINE APPEARANCE CLOUDY; URINE BILIRUBIN NEGATIVE (<2.0 mg/dL); URINE COLOR AMBER; URINE GLUCOSE (UA) NEGATIVE (NEGATIVE); URINE KETONE 1+ (NEGATIVE); URINE NITRITE NEGATIVE (NEGATIVE); URINE UROBILINOGEN NEGATIVE mg/dL (0.2-1.0)
[2018-01-09 13:15] LABS: URINE LEUK ESTERASE 3+ (NEGATIVE); URINE PROTEIN 2+ (NEGATIVE)
[2018-01-09 13:19] LABS: URINE MUCUS RARE; YEAST FEW
[2018-01-09] MEDS ORDERED: levETIRAcetam 500 MG/5 ML ORAL SOLUTION (UNIT-DOSE CUPS) GT STA (14:03)
[2018-01-09] MEDS ORDERED: CEPHALEXIN 250 MG/5 ML ORAL SUSPENSION GT STA (14:04)
--- NOTE | 2018-01-09 15:27 | PDOC ---
Attending Attestation - Resident Resident Name: Tate Smith - ED Attending Attestation I have performed the following: I have examined & evaluated the patient, The case was reviewed & discussed with the resident, I agree w/resident's findings & plan, Exceptions are as noted - HPI HPI: 01/09/18 15:24 Agree with Residents HPI - Physicial Exam PE: 01/09/18 15:24 Agree with residents PE - Medical Decision Making 01/09/18 15:23 62 years old, s/p cardiac arrest, hypothermic cooling, now vented/ PEG dependent with severe anoxic brain injury, non-verbal at baseline no significant functional motor status at baseline presents to the ED with increased from patient's baseline tremor yesterday. Staff was concerned that this may represent seizure-like activity was given Ativan and Keppra and sent to the emergency department today. Here in the emergency department patient superpubic catheter was changed he was recently treated with Bactrim for 3 days for UTI. A head CT was performed and labs were obtained Head CT demonstrates no acute findings Laboratory analysis grossly unremarkable Urinalysis demonstrates persistent UTI We'll treat with 7 day course of Keflex we'll start patient on Keppra after loading dose and patient was advised after discussion with patient's fpc to see a neurologist this week which the fpc can arrange Findings, the need for follow-up and strict return instructions discussed with the caretakers at the [facility]. 01/09/18 16:15
[2018-01-09 17:23] VITALS: TEMP 99
[2018-01-09 21:12] VITALS: BP 110/78; PULSE 88
== END 2018-01-09 21:13 ==
LOC: JER 07:36
DX: T83.510A Infection and inflammatory reaction due to cystostomy catheter, initial encounter (principal); I10 Essential (primary) hypertension; I09.9 Rheumatic heart disease, unspecified; I48.91 Unspecified atrial fibrillation; Z79.01 Long term (current) use of anticoagulants; E03.9 Hypothyroidism, unspecified; K21.9 Gastro-esophageal reflux disease without esophagitis; D64.9 Anemia, unspecified; J44.9 Chronic obstructive pulmonary disease, unspecified; Z86.69 Personal history of other diseases of the nervous system and sense organs; Z93.1 Gastrostomy status; Z93.0 Tracheostomy status; Z93.50 Unspecified cystostomy status; Z99.11 Dependence on respirator [ventilator] status
CPT/HCPCS: 36415; 70450-TC; 80053; 80162; 81003; 81015; 85025; 87086; 93005; 93010; 99284-25; J7030

== ENCOUNTER 2018-03-08 18:07 | Inpatient (IN) | payer OTHER ==
[2018-03-08 20:28] LABS: BASO % 1.1 % (0-2.0); EOS % 9.1 % (0-4.5); HEMATOCRIT 27.8 % (35.4-49); HEMOGLOBIN 9.5 GM/dL (11.7-16.9); LYMPH % 20.4 % (8-40); MCH 32.4 pg (25.7-33.7); MCHC 34.2 g/dl (32.0-35.9); MEAN CELL VOLUME 94.9 fl (80-96); MEAN PLT VOLUME 9.3 fl (7.5-11.1); MONO % 5.3 % (3.8-10.2); NEUT % 64.1 % (42.8-82.8); PLATELET COUNT 357 K/MM3 (134-434); RBC 2.93 M/mm3 (4.00-5.60); RDW 16.7 % (11.9-15.9); WHITE BLOOD COUNT 6.7 K/mm3 (4.0-10.0)
--- NOTE | 2018-03-08 20:49 | PDOC ---
History of Present Illness - General Chief Complaint: G Tube Problem Stated Complaint: GI REPLACEMENT Time Seen by Provider: 03/08/18 19:15 History Source: Residential Records Exam Limitations: Physical Impairment - History of Present Illness Initial Comments: 62 y/o M sent from [facility], in a permanent vegetative state, hx of HTN, afib , CHF, anoxic brain injury, respiratory failure s/p trach (vent dependent), s/p PEG, chronic suprapubic catheter w/ recurrent UTI, quadraplegia, seizures, hep C , hypothyroidism, pressure ulcer, condylomata acuminata presents due to leaking from suprapubic catheter site. Patient last had his suprapubic catheter site exchanged 10/2017 by IR. 03/08/18 20:47 Past History - Past Medical History Allergies/Adverse Reactions: Allergies Allergy/AdvReac Type Severity Reaction Status Date / Time No Known Allergies Allergy Verified 03/08/18 18:54 Home Medications: Ambulatory Orders Acetaminophen [Tylenol .Extra-Strength -] 500 mg GT Q6H PRN 07/31/17 Hypromellose 0.5% Opth Soln [Artificial Tears] 1 drop OU QID 07/31/17 Sennosides [Senna] 10 ml GT HS 07/31/17 Metoprolol Tartrate [Lopressor -] 50 mg GT BID #60 tablet 08/10/17 Acidoph/L.bulg/Bif.b/S.thermop [Bacid Caplet] 1 each GT BID 10/24/17 Albuterol 0.083% Nebulizer Nora [Ventolin 0.083% Nebulizer Soln -] 1 neb NEB Q4H PRN 10/24/17 Amiodarone HCl [Cordarone -] 200 mg GT DAILY 10/24/17 Apixaban [Eliquis -] 5 mg GT BID 10/24/17 Clotrimazole [Lotrimin -] 1 applic TP BID 10/24/17 Clotrimazole/Betamet Diprop [Lotrisone -] 1 applic TP DAILY PRN 10/24/17 Collagenase Clostridium Hist. [Santyl -] 1 applic TP TID PRN 10/24/17 Digoxin [Lanoxin -] 0.25 mg GT DAILY 10/24/17 Furosemide [Lasix -] 20 mg GT DAILY 10/24/17 Potassium Chloride [Potassium Chloride Oral Liquid] 20 meq GT DAILY 10/24/17 Tolnaftate 1% Powder [Tinactin 1% Powder -] 1 applic TP BID PRN 10/24/17 Zinc Oxide 20% Topical Oint 454 gm NR BID PRN 10/24/17 Cephalexin [Keflex Suspension] 500 mg GT BID 7 Days #140 ml 01/09/18 levETIRAcetam [Keppra Oral Solution -] 500 mg GT BID #1 bottle 01/09/18 Anemia: Yes Asthma: No (vented) Cancer: Yes (malignant neoplasm of penis, scrotum,) Cardiac Disorders: Yes (RHEUMATIC MITRAL VALVE DISEASE, atrial fibrillation) CVA: No COPD: Yes CHF: No Dementia: No Diabetes: No GI Disorders: Yes (gerd) Disorders: Yes (suprapubic tube) HTN: Yes Hypercholesterolemia: No Kidney Stones: No Liver Disease: No Seizures: Yes (drug related seizure 12/2012 DNR) Thyroid Disease: Yes (HYPOTHYROID) - Surgical History Abdominal Surgery: No Appendectomy: No Cardiac Surgery: No Cholecystectomy: No Lung Surgery: No Neurologic Surgery: No Orthopedic Surgery: No - Reproductive History Testicular Surgery: No - Suicide/Smoking/Psychosocial Hx Smoking History: Unknown if ever smoked Have you smoked in the past 12 months: No If you are a former smoker, when did you quit?: 9 years ago Information on smoking cessation initiated: No Hx Alcohol Use: No Drug/Substance Use Hx: No Substance Use Type: None Hx Substance Use Treatment: Yes ([facility]) Review of Systems - Review of Systems Able to Perform ROS?: No (In vegetative state) *Physical Exam - Vital Signs Last Vital Signs Temp Pulse Resp BP Pulse Ox 100.6 F H 97 H 29 H 124/86 100 03/08/18 19:53 03/08/18 18:10 03/08/18 19:03 03/08/18 18:10 03/08/18 18:10 - Physical Exam General Appearance: Yes: Other (Awake, nontoxic appearing, connected to vent) HEENT: positive: Other (No evidence of trauma) Respiratory/Chest: positive: Other (On ventalitor, no obvious wheezing/rhonchi/ rales noted) Cardiovascular: positive: Other (Irregular rate and rhythm) Gastrointestinal/Abdominal: positive: Soft, Other (PEG tube in place; skin around site intact, no surrounding erythema or unusual discharge; suprapubic catheter in place with small amount of leakage from site; sevilla bag with yellow urine). negative: Distended Male Genitalia: positive: other (+large area of condylomata overlying penis/ scrotum) Neurologic: positive: Other (In decerebrate posturing) Moderate Sedation - Procedure Monitoring Vital Signs: Procedure Monitoring Vital Signs Temperature 100.6 F H 03/08/18 19:53 Pulse Rate 97 H 03/08/18 18:10 Respiratory Rate 29 H 03/08/18 19:03 Blood Pressure 124/86 03/08/18 18:10 O2 Sat by Pulse Oximetry (%) 100 03/08/18 18:10 ED Treatment Course - LABORATORY CBC & Chemistry Diagram: 03/08/18 20:10 03/08/18 20:10 - ADDITIONAL ORDERS Additional order review: 03/08/18 20:10 RBC 2.93 L MCV 94.9 MCHC 34.2 RDW 16.7 H MPV 9.3 Neutrophils % 64.1 Lymphocytes % 20.4 Monocytes % 5.3 Eosinophils % 9.1 H Basophils % 1.1 Medical Decision Making - Medical Decision Making 62 y/o M sent from [facility] in a permanent vegetative state presents due to leaking from suprapubic catheter site. Will get basic labs, likely admit to medicine for IR consult and exchange of suprapubic catheter UA held off as likely to be colonized right now 03/08/18 20:58 *DC/Admit/Observation/Transfer Diagnosis at time of Disposition: Suprapubic catheter dysfunction - Discharge Dispostion Decision to Admit order: Yes - Referrals Referrals: Guanakito Suarez MD [Primary Care Provider] - - Patient Instructions - Post Discharge Activity
[2018-03-08 21:17] LABS: INR 1.21 (0.83-1.09); PROTHROMBIN TIME (PATIENT) 14.3 SEC (9.7-13.0)
[2018-03-08 21:20] LABS: ACTIVATED PTT 28.1 SECONDS (25.2-36.5)
[2018-03-08] MEDS ORDERED: ACETAMINOPHEN INJECTION 100 ML IVPB ONE (22:35)
--- NOTE | 2018-03-08 22:37 | HP ---
Admitting History and Physical - Primary Care Physician PCP: Danyelle Sheppard - Admission Chief Complaint: Replace Suprapubic Catheter History of Present Illness: This is a 62 y/o man from [facility] in a permanent vegetative state, with a PMHx: of HTN, Afib (on Eliquis), CHF, Anoxic Brain Injury, COPD, Respiratory Failure s/p trach (vent dependent), s/p PEG, Chronic Suprapubic Catheter w/ recurrent UTI, Quadraplegia, Seizures, Hep C, Hypothyroidism, Pressure Ulcer to Sacrum, R- Heel, Condylomata Acuminata. Who presents to the ED due to leaking from suprapubic catheter site. Patient had his last suprapubic catheter site exchanged 10/2017 by IR. Due to patient's hx of anoxic brain injury- unable to provide HPI. History Source: Transfer Record Limitations to Obtaining History: Clinical Condition - Past Medical History [employer]: Yes: Other (Anoxic Brain Injury) Cardiovascular: Yes: AFIB (paroxysmal), HTN, Mitral Insufficiency (? rheumatic) Pulmonary: Yes: COPD (ventilator dependent with tracheostomy) Gastrointestinal: Yes: Constipation, GERD, Other (Feeding gastrostomy tube) Hepatobiliary: Yes: Cholelithiasis, Hepatitis C (by other's history) Renal/: Yes: Neurogenic Bladder (with suprapubic cystostomy) Heme/Onc: Yes: Anemia Infectious Disease: Yes: Other (genital condylomata, ? typhoid fever) Psych: Yes: Addictions (alcoholism) ENT: Yes: Other (dry eye syndrome) Endocrine: Yes: Hypothyroidism - Advance Directives Advance Directives: Yes: DNR, MOLST - Smoking History Smoking history: Unknown if ever smoked Have you smoked in the past 12 months: No If you are a former smoker, when did you quit?: 9 years ago - Alcohol/Substance Use Hx Alcohol Use: No History of Substance Use: reports: Heroin - Social History Usual Living Arrangement: Yes: Assisted ADL: Support Services History of Recent Travel: No Home Medications - Allergies Allergies/Adverse Reactions: Allergies Allergy/AdvReac Type Severity Reaction Status Date / Time No Known Allergies Allergy Verified 03/08/18 18:54 - Home Medications Home Medications: Ambulatory Orders Acetaminophen [Tylenol .Extra-Strength -] 500 mg GT Q6H PRN 07/31/17 Hypromellose 0.5% Opth Soln [Artificial Tears] 1 drop OU QID 07/31/17 Sennosides [Senna] 10 ml GT HS 07/31/17 Metoprolol Tartrate [Lopressor -] 50 mg GT BID #60 tablet 08/10/17 Acidoph/L.bulg/Bif.b/S.thermop [Bacid Caplet] 1 each GT BID 10/24/17 Amiodarone HCl [Cordarone -] 200 mg GT DAILY 10/24/17 Apixaban [Eliquis -] 5 mg GT BID 10/24/17 Collagenase Clostridium Hist. [Santyl -] 1 applic TP TID PRN 10/24/17 Digoxin [Lanoxin -] 0.25 mg GT DAILY 10/24/17 Furosemide [Lasix -] 40 mg GT DAILY 10/24/17 Potassium Chloride [Potassium Chloride Oral Liquid] 20 meq GT DAILY 10/24/17 Zinc Oxide 20% Topical Oint 454 gm NR BID PRN 10/24/17 levETIRAcetam [Keppra Oral Solution -] 500 mg GT BID #1 bottle 01/09/18 Acetaminophen 2 tab PO DAILY 03/09/18 Albuterol 2.5/Ipratropium 0.5 [Duoneb -] 1 amp NEB TID 03/09/18 Ergocalciferol (Vitamin D2) [Calcidol] 6.25 ml PO WEEKLY 03/09/18 Levothyroxine [Synthroid -] 25 mcg PO DAILY 03/09/18 Mupirocin Ointment [Bactroban] 1 applic TP BID 03/09/18 Povidone-Iodine [Betadine] 1 each TP DAILY 03/09/18 Family Disease History - Family Disease History Family Disease History: CA: Mother, Respiratory: Father (emphysema, alcohol), Other: Father Review of Systems Unable to obtain ROS, reason: Anoxic Brain Injury Physical Examination Vital Signs: Vital Signs Temperature 100.6 F H 03/08/18 19:53 Pulse Rate 97 H 03/08/18 18:10 Respiratory Rate 29 H 03/08/18 19:03 Blood Pressure 124/86 03/08/18 18:10 O2 Sat by Pulse Oximetry (%) 100 03/08/18 18:10 Constitutional: Yes: Obese, Other (Trach vent dependent Vegetative State) Eyes: Yes: Conjunctiva Clear HENT: Yes: WNL, Atraumatic, Normocephalic Neck: Yes: Supple, Other (Trach- vent dependent) Cardiovascular: Yes: Regular Rate and Rhythm, S1, S2 Respiratory: Yes: WNL, Regular, CTA Bilaterally, Mechanically Ventilated (trach) Gastrointestinal: Yes: Normal Bowel Sounds, Soft, Abdomen, Obese, Other (PEG) Renal/: Yes: Boucher Present (sediment noted in tubing, drainage bag) Breast(s): Yes: WNL Edema: Yes Edema: LLE: 1+, RLE: 2+ Peripheral Pulses WNL: Yes Integumentary: Yes: Pressure Ulcer (sacrum- unstageable R- heel- stage 3 with necrosis, serousanguineous drainage) Wound/Incision: Yes: Other (r- heel pressure ulcer Stage III necrosis, serousanguineous drainage sacrum- unstageable) Neurological: Yes: Other (anoxic brain injury- baseline) Psychiatric: Yes: Other (anoxic brain injury-baseline) Labs: CBC, BMP 03/08/18 20:10 03/08/18 20:10 Laboratory Results - last 24 hr 03/08/18 03/08/18 03/08/18 20:10 20:10 20:10 WBC 6.7 RBC 2.93 L Hgb 9.5 L Hct 27.8 L D MCV 94.9 MCH 32.4 MCHC 34.2 RDW 16.7 H Plt Count 357 D MPV 9.3 Absolute Neuts (auto) 4.3 Neutrophils % 64.1 Lymphocytes % 20.4 Monocytes % 5.3 Eosinophils % 9.1 H Basophils % 1.1 Nucleated RBC % 0 PT with INR 14.30 H INR 1.21 H PTT (Actin FS) 28.1 Sodium Cancelled Potassium Cancelled Chloride Cancelled Carbon Dioxide Cancelled Anion Gap Cancelled BUN Cancelled Creatinine Cancelled Creat Clearance w eGFR Cancelled Random Glucose Cancelled Calcium Cancelled Total Bilirubin Cancelled AST Cancelled ALT Cancelled Alkaline Phosphatase Cancelled Total Protein Cancelled Albumin Cancelled Urine Color Urine Appearance Urine pH Ur Specific Gunlock Urine Protein Urine Glucose (UA) Urine Ketones Urine Blood Urine Nitrite Urine Bilirubin Urine Urobilinogen Ur Leukocyte Esterase Urine WBC (Auto) Urine RBC (Auto) Digoxin 03/08/18 03/09/18 22:15 04:59 WBC RBC Hgb Hct MCV MCH MCHC RDW Plt Count MPV Absolute Neuts (auto) Neutrophils % Lymphocytes % Monocytes % Eosinophils % Basophils % Nucleated RBC % PT with INR INR PTT (Actin FS) Sodium 139 Potassium 4.0 Chloride 104 Carbon Dioxide 30 Anion Gap 5 L BUN 31 H Creatinine 0.7 Creat Clearance w eGFR > 60 Random Glucose 99 Calcium 7.8 L Total Bilirubin 0.2 AST 42 H ALT 34 Alkaline Phosphatase 75 Total Protein 7.4 Albumin 2.2 L Urine Color Dkyellow Urine Appearance Turbid Urine pH 7.0 Ur Specific Gunlock 1.029 Urine Protein 2+ H Urine Glucose (UA) Negative Urine Ketones Negative Urine Blood Negative Urine Nitrite Negative Urine Bilirubin Negative Urine Urobilinogen Negative Ur Leukocyte Esterase 3+ H Urine WBC (Auto) None Urine RBC (Auto) None Digoxin 1.37 Current Medications Generic Name Dose Route Start Last Admin Trade Name Freq PRN Reason Stop Dose Admin Acetaminophen 1,000 mg 03/08/18 22:39 03/08/18 23:48 Ofirmev Injection - IVPB 1,000 mg Q6H PRN Administration FEVER Albuterol/Ipratropium 1 amp 03/09/18 08:00 Duoneb - NEB RTID [facility] Amiodarone HCl 200 mg 03/09/18 10:00 Cordarone - GT DAILY [facility] Apixaban 5 mg 03/08/18 22:45 03/09/18 00:59 Eliquis - PO 5 mg BID [facility] Administration Artificial Tears 1 drop 03/09/18 10:00 Artificial Tears OU QID [facility] Collagenase 1 applic 03/08/18 22:45 Santyl - TP TID PRN DRESSING CHANGE Protocol Digoxin 0.25 mg 03/09/18 10:00 Lanoxin - GT DAILY [facility] Furosemide 40 mg 03/09/18 10:00 Lasix - GT DAILY [facility] Lactobacillus Acidophilus 1 tab 03/08/18 23:00 03/09/18 00:59 Bacid - GT 1 tab BID [facility] Administration Levetiracetam 500 mg 03/08/18 23:00 03/09/18 00:59 Keppra Oral Solution - GT 500 mg BID [facility] Administration Levothyroxine Sodium 25 mcg 03/09/18 07:00 Synthroid - GT DAILY@0700 [facility] Metoprolol Tartrate 50 mg 03/09/18 10:00 Lopressor - GT BID [facility] Mupirocin 1 applic 03/09/18 10:00 Bactroban 2% Ointment - TP BID [facility] Non-Formulary Medication 454 gm 03/09/18 04:59 Zinc Oxide 20% Topical Oint NR BID PRN AFTER DIAPER CHANGE Potassium Chloride 20 meq 03/09/18 10:00 Potassium Chloride Oral Liquid GT DAILY [facility] Senna 17.6 mg 03/09/18 22:00 Senna Oral Solution - GT HS [facility] Intake & Output 03/06/18 03/07/18 03/08/18 03/09/18 23:59 23:59 23:59 23:59 Weight 88.995 kg Imaging - Results Ultrasound: Report Reviewed (Duplex RLE- no DVT), Image Reviewed Problem List - Problems (1) Suprapubic catheter dysfunction Code(s): T83.010A - BREAKDOWN (MECHANICAL) OF CYSTOSTOMY CATHETER, INIT ENCNTR (2) UTI (urinary tract infection) Code(s): N39.0 - URINARY TRACT INFECTION, SITE NOT SPECIFIED Qualifiers: Urinary tract infection type: site unspecified Hematuria presence: without hematuria Qualified Code(s): N39.0 - Urinary tract infection, site not specified (3) Chronic respiratory failure Code(s): J96.10 - CHRONIC RESPIRATORY FAILURE, UNSP W HYPOXIA OR HYPERCAPNIA Qualifiers: Respiratory failure complication: unspecified whether with hypoxia or hypercapnia Qualified Code(s): J96.10 - Chronic respiratory failure, unspecified whether with hypoxia or hypercapnia (4) Anoxic brain injury Code(s): G93.1 - ANOXIC BRAIN DAMAGE, NOT ELSEWHERE CLASSIFIED (5) Seizure Code(s): R56.9 - UNSPECIFIED CONVULSIONS (6) Mitral valve prolapse Code(s): I34.1 - NONRHEUMATIC MITRAL (VALVE) PROLAPSE (7) Atrial fibrillation Code(s): I48.91 - UNSPECIFIED ATRIAL FIBRILLATION Qualifiers: Atrial fibrillation type: persistent Qualified Code(s): I48.1 - Persistent atrial fibrillation (8) Anemia Code(s): D64.9 - ANEMIA, UNSPECIFIED (9) Condylomata acuminata in male Code(s): A63.0 - ANOGENITAL (VENEREAL) WARTS (10) Fever Code(s): R50.9 - FEVER, UNSPECIFIED (11) Quadriplegia, functional Code(s): R53.2 - FUNCTIONAL QUADRIPLEGIA (12) Rheumatic heart disease Code(s): I09.9 - RHEUMATIC HEART DISEASE, UNSPECIFIED (13) Sacral pressure ulcer Code(s): L89.159 - PRESSURE ULCER OF SACRAL REGION, UNSPECIFIED STAGE Assessment/Plan This is a 62 y/o man from [facility] with a PMHx of: Anoxic Brain Injury, Trach - Vent dependent, GERD, Rheumatic Mitral Valve Disease, HTN, COPD, Hypothyroidism, Anemia, Acute Embolism and Thrombus RLE (on Eliquis). Placed in Observation for Suprapubic Catheter Replacement, UTI for further evaluation of their emergent condition. Plan: 1. Suprapubic Catheter Replacement: Appreciate IR consult Dressing changes prn 2. UTI UA- +3 leukocyte esterase Urine Culture-pending + proteus mirabilis in urine 08/30/17 T Max 100.6 Will start on Ceftriaxone Monitor WBC, vitals 3. Pulm: Chronic Respiratory Failure, Trach Vent Dependent, COPD, PE Maintain Vent Settings per [place] records Trach care Duonebs Monitor vitals Maintain Spo2 > 95% Consider Pulm consult if condition worsens Continue home meds 4. Right Lower Extremity Swelling r/o DVT Wells Score 5 Duplex of RLE- neg for DVT Continue neurovascular checks 5. Card: HTN, Rheumatic Mitral Valve Disease Stable Continue home meds EKG-pending 6. Neuro: Seizures, Anoxic Brain Injury Continue home meds Monitor vitals 7. Heme: Anemia, DVT stable Hgb 9.5 Will transfuse if Hgb < 7.0 Continue Eliquis 8. Endocrine: Hypothyroidism Continue Synthroid 9. Quadriplegia Requires total care Turn Q2h Guy lift as needed Heel Protectors Fall Precautions 10. Integ: Pressure Ulcers- Sacrum, R- Heel Wound Care Santyl Turn Q2h FEN Gentle IVF Replete lytes prn NPO Code Status: DNR, Molst Dispo: Requires Inpatient Care Visit type - Emergency Visit Emergency Visit: Yes ED Registration Date: 03/08/18 Care time: The patient presented to the Emergency Department on the above date and was hospitalized for further evaluation of their emergent condition. - New Patient This patient is new to me today: Yes Date on this admission: 03/08/18 - Critical Care Critical Care patient: No
[2018-03-08] MEDS ORDERED: ACETAMINOPHEN 1000 MG/100 ML VIAL (NON FORMULARY) IVPB PRN (22:39)
[2018-03-08] MEDS ORDERED: COLLAGENASE CLOSTRIDIUM HIST. 30 GRAMS TUBE TP PRN (22:45)
[2018-03-09 00:05] LABS: ALBUMIN 2.2 g/dl (3.4-5.0); ALK PHOS 75 U/L (45-117); ANION GAP 5 MMOL/L (8-16); BILIRUBIN,TOTAL 0.2 mg/dL (0.2-1); BLOOD UREA NITROGEN 31 mg/dL (7-18); CALCIUM 7.8 mg/dL (8.5-10.1); CHLORIDE 104 mmol/L (98-107); CO2 30 mmol/L (21-32); CREATININE 0.7 mg/dL (0.55-1.3); GLUCOSE,RANDOM 99 mg/dL (74-106); SGPT/ALT 34 U/L (13-61); SODIUM 139 mmol/L (136-145); TOT PROT 7.4 g/dl (6.4-8.2)
[2018-03-09 00:06] LABS: SGOT/AST 42 U/L (15-37)
[2018-03-09] MEDS: levETIRAcetam 500 MG/5 ML ORAL SOLUTION (UNIT-DOSE CUPS) GT SCH ×3 (00:59→21:58)
[2018-03-09] MEDS: LACTOBACILLUS ACIDOPHILUS 1 TABLET GT SCH ×3 (00:59→21:57)
[2018-03-09] MEDS: APIXABAN 5 MG TABLET PO SCH ×3 (00:59→21:58)
[2018-03-09] MEDS ORDERED: ZINC OXIDE 20% TOPICAL OINTMENT 454 GM JAR NR PRN (04:59)
[2018-03-09 05:43] LABS: URINE APPEARANCE TURBID; URINE BILIRUBIN NEGATIVE (<2.0 mg/dL); URINE COLOR DKYELLOW; URINE GLUCOSE (UA) NEGATIVE (NEGATIVE); URINE KETONE NEGATIVE (NEGATIVE); URINE LEUK ESTERASE 3+ (NEGATIVE); URINE NITRITE NEGATIVE (NEGATIVE); URINE PROTEIN 2+ (NEGATIVE); URINE UROBILINOGEN NEGATIVE mg/dL (0.2-1.0)
[2018-03-09] MEDS ORDERED: LEVOTHYROXINE NA 25 MCG TABLET (FP) ONE (06:27)
[2018-03-09] MEDS: LEVOTHYROXINE NA 25 MCG TABLET (FP) GT SCH (06:34)
[2018-03-09 07:43] LABS: BASO % 0.8 % (0-2.0); EOS % 10.9 % (0-4.5); HEMATOCRIT 28.5 % (35.4-49); LYMPH % 26.7 % (8-40); MCH 30.4 pg (25.7-33.7); MCHC 31.7 g/dl (32.0-35.9); MEAN CELL VOLUME 96.1 fl (80-96); MEAN PLT VOLUME 8.7 fl (7.5-11.1); MONO % 8.1 % (3.8-10.2); NEUT % 53.5 % (42.8-82.8); PLATELET COUNT 291 K/MM3 (134-434); RBC 2.96 M/mm3 (4.00-5.60); RDW 16.2 % (11.9-15.9); WHITE BLOOD COUNT 6.6 K/mm3 (4.0-10.0)
[2018-03-09 07:53] LABS: ANION GAP 8 MMOL/L (8-16); BLOOD UREA NITROGEN 28 mg/dL (7-18); CALCIUM 8.2 mg/dL (8.5-10.1); CHLORIDE 103 mmol/L (98-107); CO2 29 mmol/L (21-32); CREATININE 0.8 mg/dL (0.55-1.3); GLUCOSE,RANDOM 84 mg/dL (74-106); POTASSIUM 3.9 mmol/L (3.5-5.1); SODIUM 139 mmol/L (136-145)
[2018-03-09] MEDS ORDERED: CEFTRIAXONE 1 GM in DEXTROSE 5%-WATER - 50 ML IVPB ONE (08:28)
[2018-03-09] MEDS: ALBUTEROL SO4 2.5/IPRATROPIUM 0.5 INH SOL 3 ML VIAL.NEB. NEB SCH ×3 (09:31→19:29)
[2018-03-09] MEDS: AMIODARONE HCL 200 MG TABLET (FP) GT SCH (09:31)
[2018-03-09] MEDS: DIGOXIN 0.25 MG TABLET (FP) GT SCH (09:32)
[2018-03-09] MEDS: METOPROLOL TARTRATE 50 MG TABLET (FP) GT SCH ×2 (09:32→21:58)
[2018-03-09] MEDS: FUROSEMIDE 40 MG TABLET (FP) GT SCH (09:32)
[2018-03-09] MEDS: POTASSIUM CHLORIDE ORAL LIQUID 20 MEQ/15 ML GT SCH (09:33)
[2018-03-09] MEDS: ARTIFICIAL TEARS (POLYVINYL ALCOHOL) OPTH DROPS OU SCH ×4 (10:53→22:18)
[2018-03-09] MEDS: MUPIROCIN 2% TOPICAL OINTMENT 22 GM TUBE TP SCH (10:54)
--- NOTE | 2018-03-09 14:10 | PN ---
Progress Note (short form) - Note Progress Note: pt seen/ examined in er chart reviewed. low grade temp. Vital Signs Temp 99.9 F H 03/09/18 06:24 Pulse 81 03/09/18 12:29 Resp 21 H 03/09/18 12:29 BP 120/77 03/09/18 12:29 Pulse Ox 100 03/09/18 12:29 Intake & Output 03/08/18 03/09/18 03/09/18 23:59 11:59 23:59 Weight 196 lb 3.2 oz Other: Voiding Method Indwelling Catheter Height 5 ft 6 in Body Mass Index (BMI) 31.6 Active Medications Acetaminophen (Ofirmev Injection -) 1,000 mg IVPB Q6H PRN PRN Reason: FEVER Last Admin: 03/08/18 23:48 Dose: 1,000 mg Albuterol/Ipratropium (Duoneb -) 1 amp NEB RTID [facility] Last Admin: 03/09/18 09:31 Dose: 1 amp Amiodarone HCl (Cordarone -) 200 mg GT DAILY [facility] Last Admin: 03/09/18 09:31 Dose: 200 mg Apixaban (Eliquis -) 5 mg PO BID [facility] Last Admin: 03/09/18 09:32 Dose: 5 mg Artificial Tears (Artificial Tears) 1 drop OU QID [facility] Collagenase (Santyl -) 1 applic TP TID PRN; Protocol PRN Reason: DRESSING CHANGE Digoxin (Lanoxin -) 0.25 mg GT DAILY [facility] Last Admin: 03/09/18 09:32 Dose: 0.25 mg Furosemide (Lasix -) 40 mg GT DAILY [facility] Last Admin: 03/09/18 09:32 Dose: 40 mg Ceftriaxone Sodium 1 gm/ (Dextrose) 50 mls @ 100 mls/hr IVPB DAILY [facility]; Protocol Lactobacillus Acidophilus (Bacid -) 1 tab GT BID [facility] Last Admin: 03/09/18 09:31 Dose: 1 tab Levetiracetam (Keppra Oral Solution -) 500 mg GT BID [facility] Last Admin: 03/09/18 09:32 Dose: 500 mg Levothyroxine Sodium (Synthroid -) 25 mcg GT DAILY@0700 [facility] Last Admin: 03/09/18 06:34 Dose: 25 mcg Metoprolol Tartrate (Lopressor -) 50 mg GT BID [facility] Last Admin: 03/09/18 09:32 Dose: 50 mg Multi-Ingredient Ointment (Zinc Oxide 20% Topical Oint) 454 gm NR BID PRN PRN Reason: AFTER DIAPER CHANGE Mupirocin (Bactroban 2% Ointment -) 1 applic TP BID [facility] Potassium Chloride (Potassium Chloride Oral Liquid) 20 meq GT DAILY [facility] Last Admin: 03/09/18 09:33 Dose: 20 meq Senna (Senna Oral Solution -) 17.6 mg GT HS [facility] CBC, BMP 03/09/18 07:05 03/09/18 06:00 Physical Exam Awake non verbal s/p- trach- vent lungs- bilateral breath sounds cvs- s1, s2 rrr abd - soft suprapubic cath + ext- no edema neuro- non verbal skin - chronic wounds-- rle / sacral a/p This is a 62 y/o man from [facility] in a permanent vegetative state, with a PMHx: of HTN, Afib (on Eliquis), CHF, Anoxic Brain Injury, COPD, Respiratory Failure s/p trach (vent dependent), s/p PEG, Chronic Suprapubic Catheter w/ recurrent UTI, Quadraplegia, Seizures, Hep C, Hypothyroidism, Pressure Ulcer to Sacrum, R- Heel, Condylomata Acuminata. Who presents to the ED due to leaking from suprapubic catheter site. s/p suprapubic catheter exchange contunue abx vent care pt is dnr/di will follow Problem List - Problems (1) Suprapubic catheter dysfunction Code(s): T83.010A - BREAKDOWN (MECHANICAL) OF CYSTOSTOMY CATHETER, INIT ENCNTR (2) Anoxic brain injury Code(s): G93.1 - ANOXIC BRAIN DAMAGE, NOT ELSEWHERE CLASSIFIED (3) Atrial fibrillation Code(s): I48.91 - UNSPECIFIED ATRIAL FIBRILLATION Qualifiers: Atrial fibrillation type: persistent Qualified Code(s): I48.1 - Persistent atrial fibrillation (4) Chronic respiratory failure Code(s): J96.10 - CHRONIC RESPIRATORY FAILURE, UNSP W HYPOXIA OR HYPERCAPNIA Qualifiers: Respiratory failure complication: unspecified whether with hypoxia or hypercapnia Qualified Code(s): J96.10 - Chronic respiratory failure, unspecified whether with hypoxia or hypercapnia (5) Fever Code(s): R50.9 - FEVER, UNSPECIFIED (6) Quadriplegia, functional Code(s): R53.2 - FUNCTIONAL QUADRIPLEGIA
[2018-03-09] MEDS ORDERED: ALBUTEROL SO4 2.5/IPRATROPIUM 0.5 INH SOL 3 ML VIAL.NEB. NEB ONE ×2 (16:37→19:26)
[2018-03-09] MEDS ORDERED: METOPROLOL TARTRATE 50 MG TABLET (FP) ONE (21:40)
[2018-03-09] MEDS: SENNOSIDES 8.8 MG/5 ML BULK BOTTLE GT SCH (22:19)
[2018-03-10] MEDS: MUPIROCIN 2% TOPICAL OINTMENT 22 GM TUBE TP SCH ×3 (00:14→23:13)
[2018-03-10] MEDS: LEVOTHYROXINE NA 25 MCG TABLET (FP) GT SCH (06:23)
[2018-03-10] MEDS: ALBUTEROL SO4 2.5/IPRATROPIUM 0.5 INH SOL 3 ML VIAL.NEB. NEB SCH ×3 (07:30→20:58)
[2018-03-10] MEDS: ARTIFICIAL TEARS (POLYVINYL ALCOHOL) OPTH DROPS OU SCH ×4 (10:00→23:13)
[2018-03-10] MEDS ORDERED: cefTRIAXone SODIUM 1 GM VIAL ONE (10:46)
[2018-03-10] MEDS ORDERED: DEXTROSE 5%-WATER - 50 ML IVPB ONE (10:46)
[2018-03-10] MEDS: POTASSIUM CHLORIDE ORAL LIQUID 20 MEQ/15 ML GT SCH (11:23)
[2018-03-10] MEDS: LACTOBACILLUS ACIDOPHILUS 1 TABLET GT SCH ×2 (11:23→23:14)
[2018-03-10] MEDS: CEFTRIAXONE 1 GM in DEXTROSE 5%-WATER - 50 ML IVPB SCH (11:23)
[2018-03-10] MEDS: FUROSEMIDE 40 MG TABLET (FP) GT SCH (11:24)
[2018-03-10] MEDS: METOPROLOL TARTRATE 50 MG TABLET (FP) GT SCH ×2 (11:24→23:14)
[2018-03-10] MEDS: AMIODARONE HCL 200 MG TABLET (FP) GT SCH (11:24)
[2018-03-10] MEDS: APIXABAN 5 MG TABLET PO SCH ×2 (11:27→23:14)
[2018-03-10] MEDS: DIGOXIN 0.25 MG TABLET (FP) GT SCH (11:28)
[2018-03-10] MEDS: levETIRAcetam 500 MG/5 ML ORAL SOLUTION (UNIT-DOSE CUPS) GT SCH ×2 (11:28→23:15)
--- NOTE | 2018-03-10 12:08 | PN ---
Progress Note (short form) - Note Progress Note: comfortable no distress Vital Signs Temp 98.7 F 03/10/18 10:00 Pulse 82 03/10/18 11:28 Resp 18 03/10/18 10:00 BP 145/75 03/10/18 10:00 Pulse Ox 99 03/10/18 08:20 Intake & Output 03/09/18 03/10/18 03/10/18 23:59 11:59 23:59 Intake Total 350 100 Output Total 350 300 Balance 0 -200 Weight 192 lb 9.6 oz Intake: Tube Irrigant 350 100 Output: Urine 350 300 Supra Pubic Tube 350 300 Other: Voiding Method Indwelling Catheter Indwelling Catheter Bowel Movement No No Weight Measurement Method Patient Lift Scale Active Medications Acetaminophen (Ofirmev Injection -) 1,000 mg IVPB Q6H PRN PRN Reason: FEVER Last Admin: 03/08/18 23:48 Dose: 1,000 mg Albuterol/Ipratropium (Duoneb -) 1 amp NEB RTID [facility] Last Admin: 03/10/18 07:30 Dose: 1 amp Amiodarone HCl (Cordarone -) 200 mg GT DAILY [facility] Last Admin: 03/10/18 11:24 Dose: 200 mg Apixaban (Eliquis -) 5 mg PO BID [facility] Last Admin: 03/10/18 11:27 Dose: 5 mg Artificial Tears (Artificial Tears) 1 drop OU QID [facility] Last Admin: 03/09/18 22:18 Dose: 1 drop Collagenase (Santyl -) 1 applic TP TID PRN; Protocol PRN Reason: DRESSING CHANGE Digoxin (Lanoxin -) 0.25 mg GT DAILY [facility] Last Admin: 03/10/18 11:28 Dose: 0.25 mg Furosemide (Lasix -) 40 mg GT DAILY [facility] Last Admin: 03/10/18 11:24 Dose: 40 mg Ceftriaxone Sodium 1 gm/ (Dextrose) 50 mls @ 100 mls/hr IVPB DAILY [facility]; Protocol Last Admin: 03/10/18 11:23 Dose: 100 mls/hr Lactobacillus Acidophilus (Bacid -) 1 tab GT BID [facility] Last Admin: 03/10/18 11:23 Dose: 1 tab Levetiracetam (Keppra Oral Solution -) 500 mg GT BID [facility] Last Admin: 03/10/18 11:28 Dose: 500 mg Levothyroxine Sodium (Synthroid -) 25 mcg GT DAILY@0700 [facility] Last Admin: 03/10/18 06:23 Dose: 25 mcg Metoprolol Tartrate (Lopressor -) 50 mg GT BID [facility] Last Admin: 03/10/18 11:24 Dose: 50 mg Multi-Ingredient Ointment (Zinc Oxide 20% Topical Oint) 454 gm NR BID PRN PRN Reason: AFTER DIAPER CHANGE Mupirocin (Bactroban 2% Ointment -) 1 applic TP BID [facility] Last Admin: 03/10/18 00:14 Dose: Not Given Potassium Chloride (Potassium Chloride Oral Liquid) 20 meq GT DAILY [facility] Last Admin: 03/10/18 11:23 Dose: 20 meq Senna (Senna Oral Solution -) 17.6 mg GT HS [facility] Last Admin: 03/09/18 22:19 Dose: 17.6 mg CBC, BMP 03/09/18 07:05 03/09/18 06:00 Microbiology 03/08/18 10:22 Blood Culture - Preliminary Blood - Peripheral Venous NO GROWTH OBTAINED AFTER 24 HOURS, INCUBATION TO CONTINUE FOR 4 DAYS. 03/08/18 22:38 Blood Culture - Preliminary Blood - Peripheral Venous NO GROWTH OBTAINED AFTER 24 HOURS, INCUBATION TO CONTINUE FOR 4 DAYS. 03/09/18 01:01 Urine Culture - Preliminary Urine - Urine Boucher Non Lactose Fermenting Gnb Physical Exam Awake non verbal s/p- trach- vent lungs- bilateral breath sounds cvs- s1, s2 rrr abd - soft suprapubic cath + ext- no edema neuro- non verbal skin - chronic wounds-- rle / sacral a/p This is a 62 y/o man from [facility] in a permanent vegetative state, with a PMHx: of HTN, Afib (on Eliquis), CHF, Anoxic Brain Injury, COPD, Respiratory Failure s/p trach (vent dependent), s/p PEG, Chronic Suprapubic Catheter w/ recurrent UTI, Quadraplegia, Seizures, Hep C, Hypothyroidism, Pressure Ulcer to Sacrum, R- Heel, Condylomata Acuminata. Who presents to the ED due to leaking from suprapubic catheter site. s/p suprapubic catheter exchange contunue abx vent care pulmonary consult for vent f/u cultures pt is dnr/di will follow
--- NOTE | 2018-03-10 12:24 | CON.PULM ---
Consult Consult Specialty:: PULMONARY Referred by:: ROGER Reason for Consultation:: VENT MANAGEMENT - History of Present Illness History of Present Illness: 62 y/o M sent from [facility], in a permanent vegetative state, hx of HTN, afib , CHF, anoxic brain injury, respiratory failure s/p trach (vent dependent), s/p PEG, chronic suprapubic catheter w/ recurrent UTI, quadraplegia, seizures, hep C , hypothyroidism, pressure ulcer, condylomata acuminata presents due to leaking from suprapubic catheter site. Patient last had his suprapubic catheter site exchanged 10/2017 by IR. 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 rheumatic) Pulmonary: Yes: COPD (ventilator dependent with tracheostomy) Gastrointestinal: Yes: Constipation, GERD, Other (Feeding gastrostomy tube) Hepatobiliary: Yes: Cholelithiasis, Hepatitis C (by other's history) Renal/: Yes: Neurogenic Bladder (with suprapubic cystostomy) Infectious Disease: Yes: Other (genital condylomata, ? typhoid fever) Psych: Yes: Addictions (alcoholism) ENT: Yes: Other (dry eye syndrome) Endocrine: Yes: Hypothyroidism - Alcohol/Substance Use Hx Alcohol Use: No History of Substance Use: reports: Heroin - Smoking History Smoking history: Unknown if ever smoked Have you smoked in the past 12 months: No If you are a former smoker, when did you quit?: 9 years ago - Social History ADL: Support Services History of Recent Travel: No Home Medications - Allergies Allergies/Adverse Reactions: Allergies Allergy/AdvReac Type Severity Reaction Status Date / Time No Known Allergies Allergy Verified 03/08/18 18:54 - Home Medications Home Medications: Ambulatory Orders Acetaminophen [Tylenol .Extra-Strength -] 500 mg GT Q6H PRN 07/31/17 Hypromellose 0.5% Opth Soln [Artificial Tears] 1 drop OU QID 07/31/17 Sennosides [Senna] 10 ml GT HS 07/31/17 Metoprolol Tartrate [Lopressor -] 50 mg GT BID #60 tablet 08/10/17 Acidoph/L.bulg/Bif.b/S.thermop [Bacid Caplet] 1 each GT BID 10/24/17 Amiodarone HCl [Cordarone -] 200 mg GT DAILY 10/24/17 Apixaban [Eliquis -] 5 mg GT BID 10/24/17 Collagenase Clostridium Hist. [Santyl -] 1 applic TP TID PRN 10/24/17 Digoxin [Lanoxin -] 0.25 mg GT DAILY 10/24/17 Furosemide [Lasix -] 40 mg GT DAILY 10/24/17 Potassium Chloride [Potassium Chloride Oral Liquid] 20 meq GT DAILY 10/24/17 Zinc Oxide 20% Topical Oint 454 gm NR BID PRN 10/24/17 levETIRAcetam [Keppra Oral Solution -] 500 mg GT BID #1 bottle 01/09/18 Acetaminophen 2 tab PO DAILY 03/09/18 Albuterol 2.5/Ipratropium 0.5 [Duoneb -] 1 amp NEB TID 03/09/18 Ergocalciferol (Vitamin D2) [Calcidol] 6.25 ml PO WEEKLY 03/09/18 Levothyroxine [Synthroid -] 25 mcg PO DAILY 03/09/18 Mupirocin Ointment [Bactroban] 1 applic TP BID 03/09/18 Povidone-Iodine [Betadine] 1 each TP DAILY 03/09/18 Family Disease History - Family Disease History Family Disease History: CA: Mother, Respiratory: Father (emphysema, alcohol), Other: Father Review of Systems Unable to obtain ROS, reason: UNABLE Physical Exam Vital Sings: Vital Signs Temperature 98.7 F 03/10/18 10:00 Pulse Rate 82 03/10/18 11:28 Respiratory Rate 16 03/10/18 12:09 Blood Pressure 145/75 03/10/18 10:00 O2 Sat by Pulse Oximetry (%) 97 03/10/18 12:10 Constitutional: Yes: Pallor Eyes: No: EOM Intact HENT: Yes: Normocephalic Neck: Yes: Trachea Midline, Other (TRACH IN PLACE) Cardiovascular: Yes: S1, S2 Respiratory: Yes: Regular Gastrointestinal: Yes: Normal Bowel Sounds Edema: No Neurological: Yes: Pre-Existing Deficit, Unresponsive Labs: CBC, BMP 03/09/18 07:05 03/09/18 06:00 Imaging - Results Ultrasound: Report Reviewed Problem List - Problems (1) Suprapubic catheter dysfunction Code(s): T83.010A - BREAKDOWN (MECHANICAL) OF CYSTOSTOMY CATHETER, INIT ENCNTR (2) Hepatitis C carrier Code(s): Z22.52 - (3) Seizure Code(s): R56.9 - UNSPECIFIED CONVULSIONS (4) Anemia Code(s): D64.9 - ANEMIA, UNSPECIFIED (5) Anoxic brain injury Code(s): G93.1 - ANOXIC BRAIN DAMAGE, NOT ELSEWHERE CLASSIFIED (6) Chronic respiratory failure Code(s): J96.10 - CHRONIC RESPIRATORY FAILURE, UNSP W HYPOXIA OR HYPERCAPNIA Qualifiers: Respiratory failure complication: unspecified whether with hypoxia or hypercapnia Qualified Code(s): J96.10 - Chronic respiratory failure, unspecified whether with hypoxia or hypercapnia (7) H/O typhoid fever Code(s): Z86.19 - PERSONAL HISTORY OF OTHER INFECTIOUS AND PARASITIC DISEASES (8) Quadriplegia, functional Code(s): R53.2 - FUNCTIONAL QUADRIPLEGIA Assessment/Plan WELL KNOWN BY OUR SERVICE VENT SETTINGS TO CONTINUE ORDERED CONTINUE MEDICAL TREATMENT PER PRIMARY TEAM Neeta REILLY MD
[2018-03-10] MEDS ORDERED: PT OWN MED DRAWER 7, Y5N ONE (14:10)
[2018-03-10] MEDS: SENNOSIDES 8.8 MG/5 ML BULK BOTTLE GT SCH (23:15)
[2018-03-11] MEDS: LEVOTHYROXINE NA 25 MCG TABLET (FP) GT SCH (06:25)
[2018-03-11] MEDS: ALBUTEROL SO4 2.5/IPRATROPIUM 0.5 INH SOL 3 ML VIAL.NEB. NEB SCH ×3 (07:30→22:10)
[2018-03-11 07:51] LABS: BASO % 0.8 % (0-2.0); EOS % 12.2 % (0-4.5); HEMATOCRIT 26.4 % (35.4-49); HEMOGLOBIN 8.3 GM/dL (11.7-16.9); LYMPH % 28.9 % (8-40); MCH 30.2 pg (25.7-33.7); MCHC 31.5 g/dl (32.0-35.9); MEAN CELL VOLUME 96.1 fl (80-96); MEAN PLT VOLUME 8.8 fl (7.5-11.1); MONO % 9.4 % (3.8-10.2); NEUT % 48.7 % (42.8-82.8); PLATELET COUNT 266 K/MM3 (134-434); RBC 2.74 M/mm3 (4.00-5.60); RDW 16.9 % (11.9-15.9); WHITE BLOOD COUNT 6.3 K/mm3 (4.0-10.0)
[2018-03-11 08:39] LABS: ALBUMIN 2.2 g/dl (3.4-5.0); ALK PHOS 69 U/L (45-117); ANION GAP 10 MMOL/L (8-16); BILIRUBIN,TOTAL 0.2 mg/dL (0.2-1); BLOOD UREA NITROGEN 24 mg/dL (7-18); CHLORIDE 106 mmol/L (98-107); CO2 28 mmol/L (21-32); CREATININE 0.8 mg/dL (0.55-1.3); GLUCOSE,RANDOM 90 mg/dL (74-106); POTASSIUM 3.6 mmol/L (3.5-5.1); SGOT/AST 27 U/L (15-37); SGPT/ALT 23 U/L (13-61); SODIUM 144 mmol/L (136-145); TOT PROT 6.8 g/dl (6.4-8.2)
[2018-03-11] MEDS ORDERED: cefTRIAXone SODIUM 1 GM VIAL ONE (09:55)
[2018-03-11] MEDS ORDERED: DEXTROSE 5%-WATER - 50 ML IVPB ONE (09:55)
[2018-03-11] MEDS: ARTIFICIAL TEARS (POLYVINYL ALCOHOL) OPTH DROPS OU SCH ×4 (10:16→23:23)
[2018-03-11] MEDS: POTASSIUM CHLORIDE ORAL LIQUID 20 MEQ/15 ML GT SCH (10:16)
[2018-03-11] MEDS: CEFTRIAXONE 1 GM in DEXTROSE 5%-WATER - 50 ML IVPB SCH (10:16)
[2018-03-11] MEDS: LACTOBACILLUS ACIDOPHILUS 1 TABLET GT SCH ×2 (10:16→23:23)
[2018-03-11] MEDS: FUROSEMIDE 40 MG TABLET (FP) GT SCH (10:16)
[2018-03-11] MEDS: APIXABAN 5 MG TABLET PO SCH ×2 (10:17→23:22)
[2018-03-11] MEDS: AMIODARONE HCL 200 MG TABLET (FP) GT SCH (10:17)
[2018-03-11] MEDS: DIGOXIN 0.25 MG TABLET (FP) GT SCH (10:26)
[2018-03-11] MEDS: levETIRAcetam 500 MG/5 ML ORAL SOLUTION (UNIT-DOSE CUPS) GT SCH ×2 (10:26→23:23)
[2018-03-11] MEDS: METOPROLOL TARTRATE 50 MG TABLET (FP) GT SCH ×2 (10:49→23:23)
[2018-03-11] MEDS: MUPIROCIN 2% TOPICAL OINTMENT 22 GM TUBE TP SCH ×2 (10:49→23:23)
--- NOTE | 2018-03-11 12:02 | PN ---
Progress Note (short form) - Note Progress Note: pt comfortable no distress afebrile Vital Signs Temp 99 F 03/11/18 10:00 Pulse 102 H 03/11/18 10:26 Resp 19 03/11/18 11:36 BP 139/86 03/11/18 10:00 Pulse Ox 95 03/11/18 11:36 Intake & Output 03/10/18 03/11/18 03/11/18 23:59 11:59 23:59 Intake Total 490 730 Output Total 200 100 Balance 290 630 Intake: IVPB 50 Tube Feeding 240 480 Tube Irrigant 200 250 Output: Urine 200 100 Supra Pubic Tube 200 100 Other: Voiding Method Indwelling Catheter Incontinent Bowel Movement No No Active Medications Acetaminophen (Ofirmev Injection -) 1,000 mg IVPB Q6H PRN PRN Reason: FEVER Last Admin: 03/08/18 23:48 Dose: 1,000 mg Albuterol/Ipratropium (Duoneb -) 1 amp NEB RTID [facility] Last Admin: 03/11/18 07:30 Dose: 1 amp Amiodarone HCl (Cordarone -) 200 mg GT DAILY [facility] Last Admin: 03/11/18 10:17 Dose: 200 mg Apixaban (Eliquis -) 5 mg PO BID [facility] Last Admin: 03/11/18 10:17 Dose: 5 mg Artificial Tears (Artificial Tears) 1 drop OU QID [facility] Last Admin: 03/11/18 10:16 Dose: 1 drop Collagenase (Santyl -) 1 applic TP TID PRN; Protocol PRN Reason: DRESSING CHANGE Digoxin (Lanoxin -) 0.25 mg GT DAILY [facility] Last Admin: 03/11/18 10:26 Dose: 0.25 mg Furosemide (Lasix -) 40 mg GT DAILY [facility] Last Admin: 03/11/18 10:16 Dose: 40 mg Ceftriaxone Sodium 1 gm/ (Dextrose) 50 mls @ 100 mls/hr IVPB DAILY [facility]; Protocol Last Admin: 03/11/18 10:16 Dose: 100 mls/hr Lactobacillus Acidophilus (Bacid -) 1 tab GT BID [facility] Last Admin: 03/11/18 10:16 Dose: 1 tab Levetiracetam (Keppra Oral Solution -) 500 mg GT BID [facility] Last Admin: 03/11/18 10:26 Dose: 500 mg Levothyroxine Sodium (Synthroid -) 25 mcg GT DAILY@0700 [facility] Last Admin: 03/11/18 06:25 Dose: 25 mcg Metoprolol Tartrate (Lopressor -) 50 mg GT BID [facility] Last Admin: 03/11/18 10:49 Dose: 50 mg Multi-Ingredient Ointment (Zinc Oxide 20% Topical Oint) 454 gm NR BID PRN PRN Reason: AFTER DIAPER CHANGE Mupirocin (Bactroban 2% Ointment -) 1 applic TP BID [facility] Last Admin: 03/11/18 10:49 Dose: Not Given Potassium Chloride (Potassium Chloride Oral Liquid) 20 meq GT DAILY [facility] Last Admin: 03/11/18 10:16 Dose: 20 meq Senna (Senna Oral Solution -) 17.6 mg GT HS [facility] Last Admin: 03/10/18 23:15 Dose: 17.6 mg CBC, BMP 03/11/18 06:35 03/11/18 06:35 Microbiology 03/08/18 10:22 Blood Culture - Preliminary Blood - Peripheral Venous NO GROWTH OBTAINED AFTER 48 HOURS, INCUBATION TO CONTINUE FOR 3 DAYS. 03/09/18 01:01 Urine Culture - Final Urine - Urine Boucher Proteus Mirabilis 03/08/18 22:38 Blood Culture - Preliminary Blood - Peripheral Venous NO GROWTH OBTAINED AFTER 48 HOURS, INCUBATION TO CONTINUE FOR 3 DAYS. Laboratory Results - last 24 hr 03/10/18 03/11/18 03/11/18 16:00 06:24 06:35 WBC 6.3 RBC 2.74 L Hgb 8.3 L Hct 26.4 L MCV 96.1 H MCH 30.2 MCHC 31.5 L RDW 16.9 H Plt Count 266 MPV 8.8 Absolute Neuts (auto) 3.1 Neutrophils % 48.7 Lymphocytes % 28.9 Monocytes % 9.4 Eosinophils % 12.2 H Basophils % 0.8 Nucleated RBC % 0 Sodium Potassium Chloride Carbon Dioxide Anion Gap BUN Creatinine Creat Clearance w eGFR POC Glucometer 133 113 Random Glucose Calcium Total Bilirubin AST ALT Alkaline Phosphatase Total Protein Albumin TSH 03/11/18 03/11/18 06:35 11:24 WBC RBC Hgb Hct MCV MCH MCHC RDW Plt Count MPV Absolute Neuts (auto) Neutrophils % Lymphocytes % Monocytes % Eosinophils % Basophils % Nucleated RBC % Sodium 144 Potassium 3.6 Chloride 106 Carbon Dioxide 28 Anion Gap 10 BUN 24 H Creatinine 0.8 Creat Clearance w eGFR > 60 POC Glucometer 151 Random Glucose 90 Calcium 8.0 L Total Bilirubin 0.2 AST 27 ALT 23 Alkaline Phosphatase 69 Total Protein 6.8 Albumin 2.2 L TSH 150.00 H D Physical Exam Awake non verbal s/p- trach- vent lungs- bilateral breath sounds cvs- s1, s2 rrr abd - soft suprapubic cath + ext- no edema neuro- non verbal. decerebrate posturing + skin - chronic wounds-- rle / sacral a/p This is a 62 y/o man from [facility] in a permanent vegetative state, with a PMHx: of HTN, Afib (on Eliquis), CHF, Anoxic Brain Injury, COPD, Respiratory Failure s/p trach (vent dependent), s/p PEG, Chronic Suprapubic Catheter w/ recurrent UTI, Quadraplegia, Seizures, Hep C, Hypothyroidism, Pressure Ulcer to Sacrum, R- Heel, Condylomata Acuminata. Who presents to the ED due to leaking from suprapubic catheter site. s/p suprapubic catheter exchange continue abx f/u cultures-- uti tsh - very high increase synthroid will request endo consult vent care pt is dnr/di will follow
[2018-03-11] MEDS ORDERED: LEVOTHYROXINE NA 75 MCG TABLET (FP) GT SCH (13:30)
--- NOTE | 2018-03-11 14:05 | PN ---
Progress Note (short form) - Note Progress Note: PULMONARY NO SIGNIFICANT CHANGE IN EXAM DECEREBRATE POSTURING NOTED TSH 150 WILL NEED ENDO EVAL AND HORMONE REPLACEMENT - Problems (1) Suprapubic catheter dysfunction Code(s): T83.010A - BREAKDOWN (MECHANICAL) OF CYSTOSTOMY CATHETER, INIT ENCNTR (2) Hepatitis C carrier Code(s): Z22.52 - (3) Seizure Code(s): R56.9 - UNSPECIFIED CONVULSIONS (4) Anemia Code(s): D64.9 - ANEMIA, UNSPECIFIED (5) Anoxic brain injury Code(s): G93.1 - ANOXIC BRAIN DAMAGE, NOT ELSEWHERE CLASSIFIED (6) Chronic respiratory failure Code(s): J96.10 - CHRONIC RESPIRATORY FAILURE, UNSP W HYPOXIA OR HYPERCAPNIA Qualifiers: Respiratory failure complication: unspecified whether with hypoxia or hypercapnia Qualified Code(s): J96.10 - Chronic respiratory failure, unspecified whether with hypoxia or hypercapnia (7) H/O typhoid fever Code(s): Z86.19 - PERSONAL HISTORY OF OTHER INFECTIOUS AND PARASITIC DISEASES (8) Quadriplegia, functional Code(s): R53.2 - FUNCTIONAL QUADRIPLEGIA Assessment/Plan WELL KNOWN BY OUR SERVICE VENT SETTINGS TO CONTINUE ORDERED CONTINUE MEDICAL TREATMENT PER PRIMARY TEAM SUGGEST ENDO EVAL Neeta REILLY MD Problem List - Problems (1) Suprapubic catheter dysfunction Code(s): T83.010A - BREAKDOWN (MECHANICAL) OF CYSTOSTOMY CATHETER, INIT ENCNTR (2) Hepatitis C carrier Code(s): Z22.52 - (3) Seizure Code(s): R56.9 - UNSPECIFIED CONVULSIONS (4) Anemia Code(s): D64.9 - ANEMIA, UNSPECIFIED (5) Anoxic brain injury Code(s): G93.1 - ANOXIC BRAIN DAMAGE, NOT ELSEWHERE CLASSIFIED (6) Chronic respiratory failure Code(s): J96.10 - CHRONIC RESPIRATORY FAILURE, UNSP W HYPOXIA OR HYPERCAPNIA Qualifiers: Respiratory failure complication: unspecified whether with hypoxia or hypercapnia Qualified Code(s): J96.10 - Chronic respiratory failure, unspecified whether with hypoxia or hypercapnia (7) H/O typhoid fever Code(s): Z86.19 - PERSONAL HISTORY OF OTHER INFECTIOUS AND PARASITIC DISEASES (8) Quadriplegia, functional Code(s): R53.2 - FUNCTIONAL QUADRIPLEGIA
[2018-03-11 22:40] VITALS: BMI 30.9
[2018-03-11] MEDS: SENNOSIDES 8.8 MG/5 ML BULK BOTTLE GT SCH (23:22)
[2018-03-11] MEDS: COLLAGENASE CLOSTRIDIUM HIST. 30 GRAMS TUBE TP SCH (23:24)
[2018-03-12] MEDS: LEVOTHYROXINE NA 75 MCG TABLET (FP) GT SCH (06:16)
[2018-03-12] MEDS: ALBUTEROL SO4 2.5/IPRATROPIUM 0.5 INH SOL 3 ML VIAL.NEB. NEB SCH ×3 (07:07→20:20)
[2018-03-12] MEDS: MUPIROCIN 2% TOPICAL OINTMENT 22 GM TUBE TP SCH (11:00)
[2018-03-12] MEDS ORDERED: PT OWN MED DRAWER 7, Y5N ONE ×3 (11:01→15:10)
--- NOTE | 2018-03-12 11:06 | CONSULT ---
Consult Consult Specialty:: Endocrinology Referred by:: Dr Sheppard Reason for Consultation:: Hypothyroidism - History of Present Illness Chief Complaint: Hypothyroidism History of Present Illness: This is a 62 y/o man from [facility] in a permanent vegetative state, with h/ o HTN, Afib (on Eliquis), CHF, Anoxic Brain Injury, COPD, Respiratory Failure s/ p trach (vent dependent), s/p PEG, Chronic Suprapubic Catheter w/ recurrent UTI , Quadraplegia, Seizures, Hep C, Hypothyroidism, Pressure Ulcer to Sacrum, R- Heel, Condylomata Acuminata. Who presented to the ED due to leaking from suprapubic catheter site. Patient had his last suprapubic catheter site exchanged 10/2017 by IR. Due to patient's hx of anoxic brain injury- unable to provide HPI. Pt found to have a TSH of >150 and referred for evaluation. 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 rheumatic) Pulmonary: Yes: COPD (ventilator dependent with tracheostomy) Gastrointestinal: Yes: Constipation, GERD, Other (Feeding gastrostomy tube) Hepatobiliary: Yes: Cholelithiasis, Hepatitis C (by other's history) Renal/: Yes: Neurogenic Bladder (with suprapubic cystostomy) Infectious Disease: Yes: Other (genital condylomata, ? typhoid fever) Psych: Yes: Addictions (alcoholism) ENT: Yes: Other (dry eye syndrome) Endocrine: Yes: Hypothyroidism - Alcohol/Substance Use Hx Alcohol Use: No History of Substance Use: reports: Heroin - Smoking History Smoking history: Unknown if ever smoked Have you smoked in the past 12 months: No If you are a former smoker, when did you quit?: 9 years ago - Social History ADL: Support Services History of Recent Travel: No Home Medications - Allergies Allergies/Adverse Reactions: Allergies Allergy/AdvReac Type Severity Reaction Status Date / Time No Known Allergies Allergy Verified 03/08/18 18:54 - Home Medications Home Medications: Ambulatory Orders Acetaminophen [Tylenol .Extra-Strength -] 500 mg GT Q6H PRN 07/31/17 Hypromellose 0.5% Opth Soln [Artificial Tears] 1 drop OU QID 07/31/17 Sennosides [Senna] 10 ml GT HS 07/31/17 Metoprolol Tartrate [Lopressor -] 50 mg GT BID #60 tablet 08/10/17 Acidoph/L.bulg/Bif.b/S.thermop [Bacid Caplet] 1 each GT BID 10/24/17 Amiodarone HCl [Cordarone -] 200 mg GT DAILY 10/24/17 Apixaban [Eliquis -] 5 mg GT BID 10/24/17 Collagenase Clostridium Hist. [Santyl -] 1 applic TP TID PRN 10/24/17 Digoxin [Lanoxin -] 0.25 mg GT DAILY 10/24/17 Furosemide [Lasix -] 40 mg GT DAILY 10/24/17 Potassium Chloride [Potassium Chloride Oral Liquid] 20 meq GT DAILY 10/24/17 Zinc Oxide 20% Topical Oint 454 gm NR BID PRN 10/24/17 levETIRAcetam [Keppra Oral Solution -] 500 mg GT BID #1 bottle 01/09/18 Acetaminophen 2 tab PO DAILY 03/09/18 Albuterol 2.5/Ipratropium 0.5 [Duoneb -] 1 amp NEB TID 03/09/18 Ergocalciferol (Vitamin D2) [Calcidol] 6.25 ml PO WEEKLY 03/09/18 Levothyroxine [Synthroid -] 25 mcg PO DAILY 03/09/18 Mupirocin Ointment [Bactroban] 1 applic TP BID 03/09/18 Povidone-Iodine [Betadine] 1 each TP DAILY 03/09/18 Family Disease History - Family Disease History Family Disease History: CA: Mother, Respiratory: Father (emphysema, alcohol), Other: Father Review of Systems Unable to obtain ROS, reason: Unresponsive Physical Exam Vital Signs: Vital Signs Temperature 98.9 F 03/12/18 06:00 Pulse Rate 72 03/12/18 08:30 Respiratory Rate 22 H 03/12/18 10:46 Blood Pressure 140/70 03/12/18 08:30 O2 Sat by Pulse Oximetry (%) 96 03/12/18 07:09 Eyes: Yes: Other (eyes open, doesn't follow commands) HENT: Yes: Atraumatic, Normocephalic Neck: Yes: Supple, Other (Tracheostomy in place) Cardiovascular: Yes: Pulse Irregular Respiratory: Yes: Regular Gastrointestinal: Yes: Normal Bowel Sounds Edema: No Neurological: Yes: Other (Decerebrate posturing) Labs: CBC, BMP 03/11/18 06:35 03/11/18 06:35 Assessment/Plan AP Anoxic brain Injury A Fib Decubitus Respirtory failure Hypothyroidism Hypothyroidism possibly secondary to tracheostomy, Amiodarone ( pt was on in the [facility]) or Priscilla's Check FT4, TSH, TPO in AM Continue LT4 75 mcg QD Review of chart shows pt was on LT4 mcg 25 in 08/2017 and 50 in 10/2017. Absorption of LT4 is going to be affected by the fact that pt on 24 hr feeding. Will see if increasing the dose solves the problem. If TSH persists to be high, may need to try holding feedin for around 3 to 4 hrs to give LT4 Will F/u
[2018-03-12] MEDS: levETIRAcetam 500 MG/5 ML ORAL SOLUTION (UNIT-DOSE CUPS) GT SCH ×2 (11:08→23:15)
[2018-03-12] MEDS: POTASSIUM CHLORIDE ORAL LIQUID 20 MEQ/15 ML GT SCH (11:09)
[2018-03-12] MEDS: ARTIFICIAL TEARS (POLYVINYL ALCOHOL) OPTH DROPS OU SCH ×3 (11:09→17:44)
[2018-03-12] MEDS: LACTOBACILLUS ACIDOPHILUS 1 TABLET GT SCH (11:09)
[2018-03-12] MEDS: METOPROLOL TARTRATE 50 MG TABLET (FP) GT SCH ×3 (11:10→13:48)
[2018-03-12] MEDS: AMIODARONE HCL 200 MG TABLET (FP) GT SCH (11:10)
[2018-03-12] MEDS: FUROSEMIDE 40 MG TABLET (FP) GT SCH ×3 (11:10→13:47)
[2018-03-12] MEDS: APIXABAN 5 MG TABLET PO SCH ×2 (11:11→22:56)
[2018-03-12] MEDS: DIGOXIN 0.25 MG TABLET (FP) GT SCH (11:11)
[2018-03-12] MEDS ORDERED: cefTRIAXone SODIUM 1 GM VIAL ONE (11:27)
[2018-03-12] MEDS ORDERED: DEXTROSE 5%-WATER - 50 ML IVPB ONE (11:27)
[2018-03-12] MEDS: CEFTRIAXONE 1 GM in DEXTROSE 5%-WATER - 50 ML IVPB SCH (11:32)
--- NOTE | 2018-03-12 11:55 | PN ---
Progress Note (short form) - Note Progress Note: PULMONARY Vented, unresponsive. No fevers recorded. Vital Signs Period Temp Pulse Resp BP Sys/Bhardwaj Pulse Ox Last 24 Hr 98.8 F-99.7 F 72-89 14-27 100-146/49-75 96-100 Gen: vented, unresponsive Heart: RRR Lung: decreased breath sounds at the bases Abd: soft, nontender Ext: no edema CBC, BMP 03/11/18 06:35 03/11/18 06:35 Active Medications Acetaminophen (Ofirmev Injection -) 1,000 mg IVPB Q6H PRN PRN Reason: FEVER Last Admin: 03/08/18 23:48 Dose: 1,000 mg Albuterol/Ipratropium (Duoneb -) 1 amp NEB RTID [facility] Last Admin: 03/12/18 07:07 Dose: 1 amp Amiodarone HCl (Cordarone -) 200 mg GT DAILY [facility] Last Admin: 03/12/18 11:10 Dose: 200 mg Apixaban (Eliquis -) 5 mg PO BID [facility] Last Admin: 03/12/18 11:11 Dose: 5 mg Artificial Tears (Artificial Tears) 1 drop OU QID [facility] Last Admin: 03/12/18 11:09 Dose: 1 drop Collagenase (Santyl -) 1 applic TP BID [facility]; Protocol Last Admin: 03/11/18 23:24 Dose: 1 applic Digoxin (Lanoxin -) 0.25 mg GT DAILY [facility] Last Admin: 03/12/18 11:11 Dose: 0.25 mg Furosemide (Lasix -) 40 mg GT DAILY [facility] Last Admin: 03/12/18 11:15 Dose: Not Given Ceftriaxone Sodium 1 gm/ (Dextrose) 50 mls @ 100 mls/hr IVPB DAILY [facility]; Protocol Last Admin: 03/12/18 11:32 Dose: 100 mls/hr Lactobacillus Acidophilus (Bacid -) 1 tab GT BID [facility] Last Admin: 03/12/18 11:09 Dose: 1 tab Levetiracetam (Keppra Oral Solution -) 500 mg GT BID [facility] Last Admin: 03/12/18 11:08 Dose: 500 mg Levothyroxine Sodium (Synthroid -) 75 mcg GT DAILY@0700 [facility] Last Admin: 03/12/18 06:16 Dose: 75 mcg Metoprolol Tartrate (Lopressor -) 50 mg GT BID [facility] Last Admin: 03/12/18 11:16 Dose: Not Given Multi-Ingredient Ointment (Zinc Oxide 20% Topical Oint) 454 gm NR BID PRN PRN Reason: AFTER DIAPER CHANGE Mupirocin (Bactroban 2% Ointment -) 1 applic TP BID [facility] Last Admin: 03/11/18 23:23 Dose: Not Given Potassium Chloride (Potassium Chloride Oral Liquid) 20 meq GT DAILY [facility] Last Admin: 03/12/18 11:09 Dose: 20 meq Senna (Senna Oral Solution -) 17.6 mg GT HS [facility] Last Admin: 03/11/18 23:22 Dose: 17.6 mg A/P Chronic Respiratory Failure r/o UTI Anoxic Encephalopathy Atrial Fibrillation COPD Suprapubic Catheter HTN Hypothyroidism Seizure Disorder Functional Quadriplegia - continue antibiotics - rate controlled - continue anticoagulation - continue volume assist control - not a candidate for weaning at this time due to poor mental status - enteral feeds - DVT/GI prophylaxis
--- NOTE | 2018-03-12 13:29 | DS ---
Physical Examination Vital Signs: Vital Signs Temperature 98.8 F 03/12/18 11:11 Pulse Rate 76 03/12/18 11:11 Respiratory Rate 17 03/12/18 11:11 Blood Pressure 100/60 03/12/18 11:11 O2 Sat by Pulse Oximetry (%) 100 03/12/18 11:38 Findings/Remarks: comfortable Afebrile no new issues Constitutional: Yes: No Distress Eyes: Yes: Conjunctiva Clear Neck: Yes: Other (tracheostomy--- ventilator) Cardiovascular: Yes: Regular Rate and Rhythm Respiratory: Yes: Diminished Gastrointestinal: Yes: Soft, Other Edema: No Neurological: Yes: Pre-Existing Deficit Labs: CBC, BMP 03/11/18 06:35 03/11/18 06:35 Discharge Summary Reason For Visit: SUPRAPUBIC CATHETER DYSFUNCTION Current Active Problems Suprapubic catheter dysfunction (Acute) Hospital Course: patient 62-year-old unfortunate male----with extensive past medical history --- sent from [facility]--due to leakage from suprapubic catheter--- fixed by IR Treated with IV antibiotics--or UTI----Proteus mirabilis Stable for discharge back to [facility]--continue antibiotics for 4 more days Discussed with nursing staff/ Medications reconciled Discharge today - Instructions Referrals: Guanakito Suarez MD [Primary Care Provider] - - Home Medications Comprehensive Discharge Medication List: Ambulatory Orders Acetaminophen [Tylenol .Extra-Strength -] 500 mg GT Q6H PRN 07/31/17 Hypromellose 0.5% Opth Soln [Artificial Tears] 1 drop OU QID 07/31/17 Sennosides [Senna] 10 ml GT HS 07/31/17 Metoprolol Tartrate [Lopressor -] 50 mg GT BID #60 tablet 08/10/17 Amiodarone HCl [Cordarone -] 200 mg GT DAILY 10/24/17 Apixaban [Eliquis -] 5 mg GT BID 10/24/17 Collagenase Clostridium Hist. [Santyl -] 1 applic TP TID PRN 10/24/17 Digoxin [Lanoxin -] 0.25 mg GT DAILY 10/24/17 Furosemide [Lasix -] 40 mg GT DAILY 10/24/17 Potassium Chloride [Potassium Chloride Oral Liquid] 20 meq GT DAILY 10/24/17 Zinc Oxide 20% Topical Oint 454 gm NR BID PRN 10/24/17 levETIRAcetam [Keppra Oral Solution -] 500 mg GT BID #1 bottle 01/09/18 Acetaminophen 2 tab PO DAILY 03/09/18 Albuterol 2.5/Ipratropium 0.5 [Duoneb -] 1 amp NEB TID 03/09/18 Ergocalciferol (Vitamin D2) [Calcidol] 6.25 ml PO WEEKLY 03/09/18 Mupirocin Ointment [Bactroban 2% Ointment -] 1 applic TP BID 03/09/18 Povidone-Iodine [Betadine] 1 each TP DAILY 03/09/18 Ceftriaxone [Rocephin -] 1 gm IVPB DAILY #0 vial 03/12/18 Lactobacillus Acidophilus [Bacid -] 1 tab GT BID tab 03/12/18 Levothyroxine [Synthroid -] 75 mcg GT DAILY@0700 tablet 03/12/18
[2018-03-12] MEDS: COLLAGENASE CLOSTRIDIUM HIST. 30 GRAMS TUBE TP SCH ×2 (17:44→22:56)
[2018-03-12] MEDS: SENNOSIDES 8.8 MG/5 ML BULK BOTTLE GT SCH (22:56)
[2018-03-13] MEDS: ARTIFICIAL TEARS (POLYVINYL ALCOHOL) OPTH DROPS OU SCH ×3 (00:26→14:00)
[2018-03-13] MEDS: LACTOBACILLUS ACIDOPHILUS 1 TABLET GT SCH ×2 (00:26→09:48)
[2018-03-13] MEDS: METOPROLOL TARTRATE 50 MG TABLET (FP) GT SCH ×2 (00:27→09:48)
[2018-03-13] MEDS ORDERED: PT OWN MED DRAWER 7, Y5N ONE ×4 (04:12→10:06)
[2018-03-13] MEDS: MUPIROCIN 2% TOPICAL OINTMENT 22 GM TUBE TP SCH ×2 (04:38→11:00)
[2018-03-13] MEDS: LEVOTHYROXINE NA 75 MCG TABLET (FP) GT SCH (06:12)
[2018-03-13] MEDS: ALBUTEROL SO4 2.5/IPRATROPIUM 0.5 INH SOL 3 ML VIAL.NEB. NEB SCH ×2 (08:20→15:00)
--- NOTE | 2018-03-13 09:08 | PN ---
Progress Note (short form) - Note Progress Note: unresponsive On ventilatory support Vital Signs Period Temp Pulse Resp BP Sys/Bhardwaj Pulse Ox Last 24 Hr 98.6 F-99.2 F 53-103 12-22 100-137/46-91 96-100 Neck: Supple, No JVD Lungs: CTA CVS: S1S2 Abd: Benign EXt: No leg edema Neuro: Decerebrate posturing CMP Sodium 144 mmol/L (136-145) 03/11/18 06:35 Potassium 3.6 mmol/L (3.5-5.1) 03/11/18 06:35 Chloride 106 mmol/L (98-107) 03/11/18 06:35 Carbon Dioxide 28 mmol/L (21-32) 03/11/18 06:35 Anion Gap 10 MMOL/L (8-16) 03/11/18 06:35 BUN 24 mg/dL (7-18) H 03/11/18 06:35 Creatinine 0.8 mg/dL (0.55-1.3) 03/11/18 06:35 Creat Clearance w eGFR > 60 (>60) 03/11/18 06:35 POC Glucometer 151 UNITS (80-120) 03/13/18 05:46 Random Glucose 90 mg/dL (74-106) 03/11/18 06:35 Calcium 8.0 mg/dL (8.5-10.1) L 03/11/18 06:35 Total Bilirubin 0.2 mg/dL (0.2-1) 03/11/18 06:35 AST 27 U/L (15-37) 03/11/18 06:35 ALT 23 U/L (13-61) 03/11/18 06:35 Alkaline Phosphatase 69 U/L (45-117) 03/11/18 06:35 Total Protein 6.8 g/dl (6.4-8.2) 03/11/18 06:35 Albumin 2.2 g/dl (3.4-5.0) L 03/11/18 06:35 TSH 150.00 uIU/ml (0.358-3.74) H D 03/11/18 06:35 Free T4 0.44 ng/dl (0.76-1.16) L 03/13/18 06:15 Current Medications Generic Name Dose Route Start Last Admin Trade Name Freq PRN Reason Stop Dose Admin Acetaminophen 1,000 mg 03/08/18 22:39 03/08/18 23:48 Ofirmev Injection - IVPB 1,000 mg Q6H PRN Administration FEVER Albuterol/Ipratropium 1 amp 03/09/18 08:00 03/13/18 08:20 Duoneb - NEB 1 amp RTID JESUS Administration Amiodarone HCl 200 mg 03/09/18 10:00 03/12/18 11:10 Cordarone - GT 200 mg DAILY JESUS Administration Apixaban 5 mg 03/08/18 22:45 03/12/18 22:56 Eliquis - PO 5 mg BID JESUS Administration Artificial Tears 1 drop 03/09/18 10:00 03/13/18 00:26 Artificial Tears OU 1 drop QID JESUS Administration Collagenase 1 applic 03/11/18 22:00 03/12/18 22:56 Santyl - TP 1 applic BID JESUS Administration Protocol Digoxin 0.25 mg 03/09/18 10:00 03/12/18 11:11 Lanoxin - GT 0.25 mg DAILY JESUS Administration Furosemide 40 mg 03/09/18 10:00 03/12/18 13:47 Lasix - GT 40 mg DAILY JESUS Administration Ceftriaxone Sodium 1 gm/ 50 mls @ 100 mls/hr 03/10/18 10:00 03/12/18 11:32 Dextrose IVPB 100 mls/hr DAILY JESUS Administration Protocol Lactobacillus Acidophilus 1 tab 03/08/18 23:00 03/13/18 00:26 Bacid - GT 1 tab BID JESUS Administration Levetiracetam 500 mg 03/08/18 23:00 03/12/18 23:15 Keppra Oral Solution - GT 500 mg BID JESUS Administration Levothyroxine Sodium 75 mcg 03/12/18 07:00 03/13/18 06:12 Synthroid - GT 75 mcg DAILY@0700 JESUS Administration Metoprolol Tartrate 50 mg 03/09/18 10:00 03/13/18 00:27 Lopressor - GT 50 mg BID JESUS Administration Multi-Ingredient Ointment 454 gm 03/09/18 04:59 Zinc Oxide 20% Topical Oint NR BID PRN AFTER DIAPER CHANGE Mupirocin 1 applic 03/09/18 10:00 03/13/18 04:38 Bactroban 2% Ointment - TP 1 applic BID JESUS Administration Potassium Chloride 20 meq 03/09/18 10:00 03/12/18 11:09 Potassium Chloride Oral Liquid GT 20 meq DAILY JESUS Administration Senna 17.6 mg 03/09/18 22:00 03/12/18 22:56 Senna Oral Solution - GT 17.6 mg HS JESUS Administration AP Anoxic brain Injury A Fib Decubitus Respirtory failure Hypothyroidism Hypothyroidism possibly secondary to tracheostomy, Amiodarone ( pt was on in the [place]) or Priscilla's FT4 0.44 TSH, TPO pending Continue LT4 75 mcg QD Review of chart shows pt was on LT4 mcg 25 in 08/2017 and 50 in 10/2017. Absorption of LT4 is going to be affected by the fact that pt on 24 hr feeding. Will see if increasing the dose solves the problem. If TSH persists to be high, may need to try holding feeding for around 3 to 4 hrs to give LT4 Repeat TFT in 2 weeks. Adjust dose of LT4 as necessary. Will F/u
[2018-03-13] MEDS ORDERED: cefTRIAXone SODIUM 1 GM VIAL ONE (09:09)
[2018-03-13] MEDS ORDERED: DEXTROSE 5%-WATER - 50 ML IVPB ONE (09:10)
[2018-03-13] MEDS: CEFTRIAXONE 1 GM in DEXTROSE 5%-WATER - 50 ML IVPB SCH (09:47)
[2018-03-13] MEDS: POTASSIUM CHLORIDE ORAL LIQUID 20 MEQ/15 ML GT SCH (09:47)
[2018-03-13] MEDS: FUROSEMIDE 40 MG TABLET (FP) GT SCH (09:47)
[2018-03-13] MEDS: AMIODARONE HCL 200 MG TABLET (FP) GT SCH (09:48)
[2018-03-13] MEDS: levETIRAcetam 500 MG/5 ML ORAL SOLUTION (UNIT-DOSE CUPS) GT SCH (10:27)
[2018-03-13] MEDS: APIXABAN 5 MG TABLET PO SCH (10:27)
[2018-03-13] MEDS: DIGOXIN 0.25 MG TABLET (FP) GT SCH (10:28)
--- NOTE | 2018-03-13 12:18 | PN ---
Progress Note, Physician History of Present Illness: pulmonary lethargic,on vent support,-resp distress - Current Medication List Current Medications: Active Medications Acetaminophen (Ofirmev Injection -) 1,000 mg IVPB Q6H PRN PRN Reason: FEVER Last Admin: 03/08/18 23:48 Dose: 1,000 mg Albuterol/Ipratropium (Duoneb -) 1 amp NEB RTID [facility] Last Admin: 03/13/18 08:20 Dose: 1 amp Amiodarone HCl (Cordarone -) 200 mg GT DAILY [facility] Last Admin: 03/13/18 09:48 Dose: 200 mg Apixaban (Eliquis -) 5 mg PO BID [facility] Last Admin: 03/13/18 10:27 Dose: 5 mg Artificial Tears (Artificial Tears) 1 drop OU QID [facility] Last Admin: 03/13/18 09:47 Dose: 1 drop Collagenase (Santyl -) 1 applic TP BID [facility]; Protocol Last Admin: 03/12/18 22:56 Dose: 1 applic Digoxin (Lanoxin -) 0.25 mg GT DAILY [facility] Last Admin: 03/13/18 10:28 Dose: Not Given Furosemide (Lasix -) 40 mg GT DAILY [facility] Last Admin: 03/13/18 09:47 Dose: Not Given Ceftriaxone Sodium 1 gm/ (Dextrose) 50 mls @ 100 mls/hr IVPB DAILY [facility]; Protocol Last Admin: 03/13/18 09:47 Dose: 100 mls/hr Lactobacillus Acidophilus (Bacid -) 1 tab GT BID [facility] Last Admin: 03/13/18 09:48 Dose: 1 tab Levetiracetam (Keppra Oral Solution -) 500 mg GT BID [facility] Last Admin: 03/13/18 10:27 Dose: 500 mg Levothyroxine Sodium (Synthroid -) 75 mcg GT DAILY@0700 [facility] Last Admin: 03/13/18 06:12 Dose: 75 mcg Metoprolol Tartrate (Lopressor -) 50 mg GT BID [facility] Last Admin: 03/13/18 09:48 Dose: Not Given Multi-Ingredient Ointment (Zinc Oxide 20% Topical Oint) 454 gm NR BID PRN PRN Reason: AFTER DIAPER CHANGE Mupirocin (Bactroban 2% Ointment -) 1 applic TP BID [facility] Last Admin: 03/13/18 04:38 Dose: 1 applic Potassium Chloride (Potassium Chloride Oral Liquid) 20 meq GT DAILY [facility] Last Admin: 03/13/18 09:47 Dose: 20 meq Senna (Senna Oral Solution -) 17.6 mg GT HS [facility] Last Admin: 03/12/18 22:56 Dose: 17.6 mg - Objective Vital Signs: Vital Signs Temperature 98.5 F 03/13/18 10:25 Pulse Rate 58 L 03/13/18 12:12 Respiratory Rate 12 03/13/18 12:12 Blood Pressure 100/60 03/13/18 12:12 O2 Sat by Pulse Oximetry (%) 99 03/13/18 08:33 Constitutional: Yes: Well Nourished, Calm Eyes: Yes: WNL HENT: Yes: WNL Neck: Yes: Supple (trach) Cardiovascular: Yes: Pulse Irregular, S1, S2 Respiratory: Yes: Diminished Extremities: Yes: WNL Edema: No Labs: CBC, BMP 03/11/18 06:35 03/11/18 06:35 INR, PTT INR 1.21 (0.83-1.09) H 03/08/18 20:10 Problem List - Problems (1) Suprapubic catheter dysfunction Code(s): T83.010A - BREAKDOWN (MECHANICAL) OF CYSTOSTOMY CATHETER, INIT ENCNTR (2) Anemia Code(s): D64.9 - ANEMIA, UNSPECIFIED (3) Anoxic brain injury Code(s): G93.1 - ANOXIC BRAIN DAMAGE, NOT ELSEWHERE CLASSIFIED (4) Atrial fibrillation Code(s): I48.91 - UNSPECIFIED ATRIAL FIBRILLATION Qualifiers: Atrial fibrillation type: persistent Qualified Code(s): I48.1 - Persistent atrial fibrillation (5) Chronic respiratory failure Code(s): J96.10 - CHRONIC RESPIRATORY FAILURE, UNSP W HYPOXIA OR HYPERCAPNIA Qualifiers: Respiratory failure complication: unspecified whether with hypoxia or hypercapnia Qualified Code(s): J96.10 - Chronic respiratory failure, unspecified whether with hypoxia or hypercapnia (6) Quadriplegia, functional Code(s): R53.2 - FUNCTIONAL QUADRIPLEGIA (7) Tracheostomy tube present Code(s): Z93.0 - TRACHEOSTOMY STATUS Assessment/Plan A/P Chronic Respiratory Failure r/o UTI Anoxic Encephalopathy Atrial Fibrillation COPD Suprapubic Catheter HTN Hypothyroidism Seizure Disorder Functional Quadriplegia - antibiotics - rate controlled - continue anticoagulation - continue volume assist control - not a candidate for weaning at this time due to poor mental status - enteral feeds - DVT/GI prophylaxis DR ALEXANDER
--- NOTE | 2018-03-13 13:23 | PN ---
Progress Note (short form) - Note Progress Note: Vital Signs - 24 hr 03/12/18 03/12/18 03/12/18 13:37 13:58 16:13 Temperature 99.2 F Pulse Rate 103 H Respiratory 17 16 15 Rate Blood Pressure 119/91 O2 Sat by Pulse Oximetry (%) 03/12/18 03/12/18 03/12/18 18:00 18:37 21:30 Temperature 98.6 F Pulse Rate 53 L Respiratory 12 14 17 Rate Blood Pressure 102/46 L O2 Sat by Pulse Oximetry (%) 03/12/18 03/13/18 03/13/18 22:00 00:24 02:00 Temperature 98.7 F 98.9 F Pulse Rate 66 60 Respiratory 18 20 18 Rate Blood Pressure 117/52 L 103/57 L O2 Sat by Pulse 96 Oximetry (%) 03/13/18 03/13/18 03/13/18 03:58 03:59 06:00 Temperature 98.8 F Pulse Rate 61 77 Respiratory 22 H 17 Rate Blood Pressure 137/79 O2 Sat by Pulse 99 98 Oximetry (%) 03/13/18 03/13/18 03/13/18 06:38 08:31 08:33 Temperature Pulse Rate 59 L Respiratory 17 13 Rate Blood Pressure O2 Sat by Pulse 99 Oximetry (%) 03/13/18 03/13/18 03/13/18 09:37 10:25 12:12 Temperature 98.5 F Pulse Rate 60 57 L 58 L Respiratory 12 12 Rate Blood Pressure 100/50 L 100/60 O2 Sat by Pulse Oximetry (%) Current Medications Generic Name Dose Route Start Last Admin Trade Name Freq PRN Reason Stop Dose Admin Albuterol/Ipratropium 1 amp 03/09/18 08:00 03/13/18 08:20 Duoneb - NEB 1 amp RTID JESUS Administration Amiodarone HCl 200 mg 03/09/18 10:00 03/13/18 09:48 Cordarone - GT 200 mg DAILY JESUS Administration Apixaban 5 mg 03/08/18 22:45 03/13/18 10:27 Eliquis - PO 5 mg BID JESUS Administration Artificial Tears 1 drop 03/09/18 10:00 03/13/18 09:47 Artificial Tears OU 1 drop QID JESUS Administration Collagenase 1 applic 03/11/18 22:00 03/12/18 22:56 Santyl - TP 1 applic BID JESUS Administration Protocol Digoxin 0.25 mg 03/09/18 10:00 03/13/18 10:28 Lanoxin - GT Not Given DAILY JESUS Furosemide 40 mg 03/09/18 10:00 03/13/18 09:47 Lasix - GT Not Given DAILY JESUS Ceftriaxone Sodium 1 gm/ 50 mls @ 100 mls/hr 03/10/18 10:00 03/13/18 09:47 Dextrose IVPB 100 mls/hr DAILY JESUS Administration Protocol Lactobacillus Acidophilus 1 tab 03/08/18 23:00 03/13/18 09:48 Bacid - GT 1 tab BID JESUS Administration Levetiracetam 500 mg 03/08/18 23:00 03/13/18 10:27 Keppra Oral Solution - GT 500 mg BID JESUS Administration Levothyroxine Sodium 75 mcg 03/12/18 07:00 03/13/18 06:12 Synthroid - GT 75 mcg DAILY@0700 JESUS Administration Multi-Ingredient Ointment 454 gm 03/09/18 04:59 Zinc Oxide 20% Topical Oint NR BID PRN AFTER DIAPER CHANGE Mupirocin 1 applic 03/09/18 10:00 03/13/18 04:38 Bactroban 2% Ointment - TP 1 applic BID JESUS Administration Potassium Chloride 20 meq 03/09/18 10:00 03/13/18 09:47 Potassium Chloride Oral Liquid GT 20 meq DAILY JESUS Administration Senna 17.6 mg 03/09/18 22:00 03/12/18 22:56 Senna Oral Solution - GT 17.6 mg HS JESUS Administration Laboratory Results - last 24 hr 03/12/18 03/13/18 03/13/18 17:43 05:46 06:15 POC Glucometer 128 151 TSH 144.00 H D Free T4 0.44 L 03/13/18 12:05 POC Glucometer 144 TSH Free T4
[2018-03-13] MEDS: COLLAGENASE CLOSTRIDIUM HIST. 30 GRAMS TUBE TP SCH (14:00)
[2018-03-13 15:04] VITALS: BP 139/81; PULSE 69; TEMP 99.2
[2018-03-13] MEDS ORDERED: METOPROLOL TARTRATE 50 MG TABLET (FP) GT SCH (22:00)
== END 2018-03-13 18:25 | DRG 698 ==
LOC: JER 18:07 → JERBED 21:26 → J5S 03-09 23:29 → OBSVTOIN 03-12 11:25
PROVIDERS: ADMIT Internal Medicine; ATTEND Internal Medicine
PROC: 0T2BX0Z Change Drainage Device in Bladder, External Approach (ICD-10-PCS; 2018-03-09)
PROC: 5A1935Z Respiratory Ventilation, Less than 24 Consecutive Hours (ICD-10-PCS; principal; 2018-03-12)
DX: T83.018A Breakdown (mechanical) of other urinary catheter, initial encounter (principal); L89.613 Pressure ulcer of right heel, stage 3; R53.2 Functional quadriplegia; Z99.11 Dependence on respirator [ventilator] status; G93.1 Anoxic brain damage, not elsewhere classified; N39.0 Urinary tract infection, site not specified; J96.10 Chronic respiratory failure, unspecified whether with hypoxia or hypercapnia; B96.4 Proteus (mirabilis) (morganii) as the cause of diseases classified elsewhere; I11.0 Hypertensive heart disease with heart failure; L89.150 Pressure ulcer of sacral region, unstageable; Y84.6 Urinary catheterization as the cause of abnormal reaction of the patient, or of later complication, without mention of misadventure at the time of the procedure; I48.0 Paroxysmal atrial fibrillation; I50.9 Heart failure, unspecified; Z93.1 Gastrostomy status; Z93.0 Tracheostomy status; E03.9 Hypothyroidism, unspecified; B19.20 Unspecified viral hepatitis C without hepatic coma; R56.9 Unspecified convulsions; Z85.89 Personal history of malignant neoplasm of other organs and systems; Z85.828 Personal history of other malignant neoplasm of skin; Z66 Do not resuscitate; Z87.891 Personal history of nicotine dependence; A63.0 Anogenital (venereal) warts
CPT/HCPCS: 36415; 75984-FY; 76000-TC-FY; 80048; 80053; 80162; 80177; 81003; 81015; 82962; 84439; 84443; 85025; 85610; 85730; 86376; 87040; 87086; 87186; 93971-TC; 94640; 99284-25; A4358; G0378; J0131

== ENCOUNTER 2018-05-06 00:12 | Emergency (ER) | payer OTHER ==
--- NOTE | 2018-05-06 00:41 | PDOC ---
History of Present Illness - General Chief Complaint: SIRS, Suspected/Possible Stated Complaint: FEVER Time Seen by Provider: 05/06/18 00:29 History Source: Intermediate Records, Old Records - History of Present Illness Initial Comments: 05/06/18 02:45 Pt is a 63yo M with PMH of HTN, Afib (on Eliquis), CHF, COPD, s/p tracheostomy, s/p PEG, s/p suprapubic catheter, Quadreplegia, Hep C, Hypothyroidism, decubitus ulcers sent from [facility] for fevers and to r/o sepsis per the papers that came with patient. Temperature was 100.8 at [facility]. PMD: Silver Suarez PMH: see hpi PSH: see hpi Meds: see med rec Allergies: nkda Past History - Past Medical History Allergies/Adverse Reactions: Allergies Allergy/AdvReac Type Severity Reaction Status Date / Time No Known Allergies Allergy Verified 05/06/18 00:31 Home Medications: Ambulatory Orders Acetaminophen [Tylenol .Extra-Strength -] 500 mg GT Q6H PRN 07/31/17 Hypromellose 0.5% Opth Soln [Artificial Tears] 1 drop OU QID 07/31/17 Sennosides [Senna] 10 ml GT HS 07/31/17 Metoprolol Tartrate [Lopressor -] 50 mg GT BID #60 tablet 08/10/17 Amiodarone HCl [Cordarone -] 200 mg GT DAILY 10/24/17 Apixaban [Eliquis -] 5 mg GT BID 10/24/17 Collagenase Clostridium Hist. [Santyl -] 1 applic TP TID PRN 10/24/17 Digoxin [Lanoxin -] 0.25 mg GT DAILY 10/24/17 Furosemide [Lasix -] 40 mg GT DAILY 10/24/17 Potassium Chloride [Potassium Chloride Oral Liquid] 20 meq GT DAILY 10/24/17 Zinc Oxide 20% Topical Oint 454 gm NR BID PRN 10/24/17 levETIRAcetam [Keppra Oral Solution -] 500 mg GT BID #1 bottle 01/09/18 Acetaminophen 2 tab PO DAILY 03/09/18 Albuterol 2.5/Ipratropium 0.5 [Duoneb -] 1 amp NEB TID 03/09/18 Ergocalciferol (Vitamin D2) [Calcidol] 6.25 ml PO WEEKLY 03/09/18 Mupirocin Ointment [Bactroban 2% Ointment -] 1 applic TP BID 03/09/18 Povidone-Iodine [Betadine] 1 each TP DAILY 03/09/18 Ceftriaxone [Rocephin -] 1 gm IVPB DAILY #0 vial 03/12/18 Lactobacillus Acidophilus [Bacid -] 1 tab GT BID tab 03/12/18 Levothyroxine [Synthroid -] 75 mcg GT DAILY@0700 tablet 03/12/18 Anemia: Yes Asthma: No Cancer: Yes (malignant neoplasm of penis, scrotum,) Cardiac Disorders: Yes (RHEUMATIC MITRAL VALVE DISEASE, atrial fibrillation) CVA: No COPD: Yes CHF: Yes Dementia: No Diabetes: No GI Disorders: Yes (gerd) Disorders: No HTN: Yes Hypercholesterolemia: No Kidney Stones: No Liver Disease: No Seizures: Yes (drug related seizure 12/2012) Thyroid Disease: Yes (HYPOTHYROID) - Surgical History Abdominal Surgery: No Appendectomy: No Cardiac Surgery: No Cholecystectomy: No Lung Surgery: No Neurologic Surgery: No Orthopedic Surgery: No - Reproductive History Testicular Surgery: No - Suicide/Smoking/Psychosocial Hx Smoking History: Never smoked Have you smoked in the past 12 months: No If you are a former smoker, when did you quit?: 9 years ago Hx Alcohol Use: No Drug/Substance Use Hx: No Substance Use Type: None Hx Substance Use Treatment: Yes ([facility]) Review of Systems - Review of Systems Able to Perform ROS?: No *Physical Exam - Physical Exam General Appearance: Yes: Appropriately Dressed, Obese, Other (nonverbal. moving eyes spontaneously) HEENT: positive: EOMI, DEAN, TMs Normal Neck: positive: Trachea midline, Other (trachostomy tube in place). negative: Carotid bruit, Lymphadenopathy (R), Lymphadenopathy (L) Respiratory/Chest: positive: Lungs Clear, Normal Breath Sounds. negative: Crackles, Rales, Rhonchi, Stridor, Wheezing Cardiovascular: positive: Regular Rhythm, Regular Rate, S1, S2. negative: Edema , JVD, Murmur Vascular Pulses: Carotid (R): 2+, Carotid (L): 2+, Dorsalis-Pedis (R): 2+, Doralis-Pedis (L): 2+ Gastrointestinal/Abdominal: positive: Normal Bowel Sounds, Soft. negative: Distended, Guarding, Rebound, Tenderness Male Genitalia: positive: normal genitalia Extremity: positive: Normal Capillary Refill, Pelvis Stable, Pedal Edema (edema up to knees bilaterally) Integumentary: positive: Normal Color, Dry, Warm, Other (sacral ulcer, healing, no erythema or deep erosion. Ulcer on L calf, no surrounding erythema. ) Neurologic: positive: Alert, Respond to painful stimul, Other (pt nonverbal and quadraplegic) ED Treatment Course - LABORATORY CBC & Chemistry Diagram: 05/06/18 02:04 05/06/18 03:20 - RADIOLOGY Radiology Studies Ordered: Category Date Time Status CHEST X-RAY PORTABLE* [RAD] Stat Radiology 05/06/18 00:39 Ordered Medical Decision Making - Medical Decision Making 05/06/18 02:56 Pt is a 63yo M with PMH of HTN, Afib (on Eliquis), CHF, COPD, s/p tracheostomy, s/p PEG, s/p suprapubic catheter, Quadreplegia, Hep C, Hypothyroidism, decubitus ulcers sent from [facility] for fevers and to r/o sepsis per the papers that came with patient. Temperature was 100.8 at [facility]. Vitals: wnl. rectal temp 99.7 Septic workup started. IVF, Zosyn, Tylenol CXR no focal consolidations or infiltrates. no white count. Hgb 8.4 (baseline). Corrected Ca 9.2 UA 1+LE. Pt is afebrile, vitals wnl. no obvious source for infection. Does not need admission at this time. Can be sent back to [place] *DC/Admit/Observation/Transfer Diagnosis at time of Disposition: Fever Qualifiers: Fever type: unspecified Qualified Code(s): R50.9 - Fever, unspecified UTI (urinary tract infection) Qualifiers: Urinary tract infection type: site unspecified Hematuria presence: without hematuria Qualified Code(s): N39.0 - Urinary tract infection, site not specified - Discharge Dispostion Disposition: [facility]ARE HOME FACILITY Condition at time of disposition: Improved Decision to Admit order: No - Referrals - Patient Instructions Printed Discharge Instructions: Urinary Tract Infection Additional Instructions: Mr. Wagoner was seen in the emergency room for fever. He did not have a fever here. We did lab work and cultures. He does not have a white count, normal labs , He has a slight urinary tract infection, no signs of pneumonia or lung pathology. He was given an antibiotic as well. I recommend Levaquin Please come back to the emergency room if fever develops, he seems altered or if any new concerning symptom develops. Thank you - Post Discharge Activity
[2018-05-06 00:45] VITALS: PULSE 74
[2018-05-06] MEDS ORDERED: ACETAMINOPHEN 1000 MG/100 ML VIAL (NON FORMULARY) IVPB ONE (00:46)
[2018-05-06] MEDS ORDERED: PIPERACILLIN/TAZOB 3.375 GM 3.375 GM in DEXTROSE 5%-WATER - 50 ML IVPB ONE (00:47)
--- NOTE | 2018-05-06 00:54 | PDOC ---
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 Patient was sent from [facility] for evaluation of fever. Patient unable to give history. Allergies: NKA - Medical Decision Making 05/06/18 00:58 Documentation prepared by CLAU Hoyos, acting as medical practice manager for Chelsie Mckinney MD. <Thien Pascual - Last Filed: 05/06/18 00:57> - Resident Resident Name: Jasmin Del Real - ED Attending Attestation I have performed the following: I have examined & evaluated the patient, The case was reviewed & discussed with the resident, I agree w/resident's findings & plan - Physicial Exam PE: 05/06/18 02:23 Agree with resident exam. Pt has a cellulitis of the right leg. Pt also has distended abdomen, but has no rebound and no guarding and no tenderness PEG site not infected. The trach collar is also clear and nontender and not infected. - Medical Decision Making 05/06/18 02:56 Hb is low; however it has been stable x 2 months. 05/06/18 04:07 Chem is normal. Pt has a small UTI from his indwelling catheter. He has a left leg cellulitis and he will be admitted to med surg 05/06/18 04:10 CXR looks the same as the one from 7 mos ago. Pt has slightly less inspiratory effort today, thus heart looks slightly larger. 05/06/18 04:21 Pt will be sent back to the [place] with levaquin recommended for his UTI and his cellulitis of his leg <Chelsie Mckinney - Last Filed: 05/06/18 04:21> Heart Score/ECG Review - ECG Intrepretation Rhythm: Irregularly Irregular - [place]: Normal - P and [place] Prominent R with upright T in V1 (true posterior NC): No Delta Wave(s) Present: No WPW: No - QRS Poor R Wave Progression: No Q Wave Present: Yes - ST and T Early Repolarization: No Non Specific ST-T Wave changes: No Flattened T Waves: Yes Prolonged Q-T Interval: No - ECG Impressions Normal ECG: No Non-specific ST Elevation: No Ischemic Changes: Yes Bradycardia: No <Chelsie Mckinney - Last Filed: 05/06/18 04:21>
[2018-05-06 01:01] VITALS: BP 109/74; TEMP 99.5; BMI 23.6
[2018-05-06] MEDS ORDERED: ACETAMINOPHEN INJECTION 100 ML IVPB ONE (02:18)
[2018-05-06] MEDS ORDERED: PIPERACILLIN/TAZOB 3.375 GM 3.375 GM/50 ML BAG IVPB ONE (02:19)
[2018-05-06 02:25] LABS: VENOUS PC02 52.2 mmHg (38-52); VENOUS PH 7.42 (7.32-7.42); VENOUS PO2 30.7 mmHg (28-48)
[2018-05-06 02:30] LABS: BASO % 1.1 % (0-2.0); EOS % 6.1 % (0-4.5); HEMATOCRIT 24.6 % (35.4-49); HEMOGLOBIN 8.4 GM/dL (11.7-16.9); MCH 31.6 pg (25.7-33.7); MCHC 34.3 g/dl (32.0-35.9); MEAN CELL VOLUME 92.2 fl (80-96); MEAN PLT VOLUME 10.1 fl (7.5-11.1); NEUT % 67.8 % (42.8-82.8); PLATELET COUNT 210 K/MM3 (134-434); RBC 2.67 M/mm3 (4.00-5.60); RDW 16.9 % (11.9-15.9); WHITE BLOOD COUNT 9.8 K/mm3 (4.0-10.0)
[2018-05-06 02:39] LABS: INR 1.25 (0.83-1.09); PROTHROMBIN TIME (PATIENT) 14.8 SEC (9.7-13.0)
[2018-05-06 02:42] LABS: ACTIVATED PTT 24.1 SECONDS (25.2-36.5)
[2018-05-06 03:09] LABS: URINE APPEARANCE CLEAR; URINE BILIRUBIN NEGATIVE (<2.0 mg/dL); URINE COLOR YELLOW; URINE GLUCOSE (UA) NEGATIVE (NEGATIVE); URINE KETONE NEGATIVE (NEGATIVE); URINE LEUK ESTERASE 1+ (NEGATIVE); URINE NITRITE NEGATIVE (NEGATIVE); URINE PROTEIN NEGATIVE (NEGATIVE); URINE UROBILINOGEN NEGATIVE mg/dL (0.2-1.0)
[2018-05-06 04:06] LABS: ALBUMIN 1.9 g/dl (3.4-5.0); ALK PHOS 61 U/L (45-117); ANION GAP 6 MMOL/L (8-16); BILIRUBIN,TOTAL 0.2 mg/dL (0.2-1); BLOOD UREA NITROGEN 19 mg/dL (7-18); CALCIUM 7.5 mg/dL (8.5-10.1); CHLORIDE 101 mmol/L (98-107); CO2 31 mmol/L (21-32); CREATININE 0.6 mg/dL (0.55-1.3); GLUCOSE,RANDOM 102 mg/dL (74-106); MAGNESIUM 2.2 mg/dL (1.8-2.4); POTASSIUM 3.5 mmol/L (3.5-5.1); SGOT/AST 19 U/L (15-37); SGPT/ALT 18 U/L (13-61); SODIUM 139 mmol/L (136-145); TOT PROT 6.9 g/dl (6.4-8.2)
--- NOTE | 2018-05-06 11:03 | EKG ---
Test Reason : Blood Pressure : / mmHG Vent. Rate : 087 BPM Atrial Rate : 250 BPM P-R Int : 000 ms QRS Dur : 094 ms QT Int : 272 ms P-R-T Axes : 000 -36 129 degrees QTc Int : 327 ms ATRIAL FIBRILLATION LEFT AXIS DEVIATION LOW VOLTAGE QRS SEPTAL INFARCT (CITED ON OR BEFORE 09-JAN-2018) NONSPECIFIC ST ABNORMALITY ABNORMAL ECG WHEN COMPARED WITH ECG OF 09-JAN-2018 10:01, QUESTIONABLE CHANGE IN INITIAL FORCES OF ANTEROSEPTAL LEADS Confirmed by ARELI DESIR MD ([id number]) on 05/06/2018 11:03:38 AM Referred By: Confirmed By:ARELI DESIR MD
== END 2018-05-06 05:09 ==
LOC: JER 00:12
PROC: 3E03329 Introduction of Other Anti-infective into Peripheral Vein, Percutaneous Approach (ICD-10-PCS; principal; 2018-05-06)
PROC: 3E033NZ Introduction of Analgesics, Hypnotics, Sedatives into Peripheral Vein, Percutaneous Approach (ICD-10-PCS; 2018-05-06)
DX: N39.0 Urinary tract infection, site not specified (principal); I25.10 Atherosclerotic heart disease of native coronary artery without angina pectoris; I11.0 Hypertensive heart disease with heart failure; I50.9 Heart failure, unspecified; I48.91 Unspecified atrial fibrillation; Z79.01 Long term (current) use of anticoagulants; I05.8 Other rheumatic mitral valve diseases; J44.9 Chronic obstructive pulmonary disease, unspecified; K21.9 Gastro-esophageal reflux disease without esophagitis; E03.9 Hypothyroidism, unspecified; B18.2 Chronic viral hepatitis C; G82.50 Quadriplegia, unspecified; Z85.49 Personal history of malignant neoplasm of other male genital organs; Z86.69 Personal history of other diseases of the nervous system and sense organs; Z93.0 Tracheostomy status; Z93.1 Gastrostomy status; Z93.50 Unspecified cystostomy status
CPT/HCPCS: 36415; 71045-TC-FY; 80053; 81003; 81015; 82803; 83605; 83735; 84100; 84484; 85025; 85610; 85730; 87040; 87086; 87186; 87804; 93005; 93010; 99283-25; J0131

== ENCOUNTER 2018-05-09 14:22 | Inpatient (IN) | payer OTHER ==
--- NOTE | 2018-05-09 15:13 | PDOC ---
History of Present Illness - General Chief Complaint: G Tube Problem Stated Complaint: G Tube Problem - History of Present Illness Initial Comments: 63yo M with PMH of HTN, Afib (on Eliquis), CHF, COPD, s/p tracheostomy, s/p PEG , s/p suprapubic catheter, quadriplegia, Hep C, Hypothyroidism, decubitus ulcers sent from [facility] for erythema around his g tube and sp catheter site. No report of fevers at the OR or other signes or symptoms as patient is only responsive to pain at baseline. 05/09/18 15:22 Past History - Past Medical History Allergies/Adverse Reactions: Allergies Allergy/AdvReac Type Severity Reaction Status Date / Time No Known Allergies Allergy Verified 05/09/18 14:24 Home Medications: Ambulatory Orders Acetaminophen [Tylenol .Extra-Strength -] 500 mg GT Q6H PRN 07/31/17 Hypromellose 0.5% Opth Soln [Artificial Tears] 1 drop OU QID 07/31/17 Sennosides [Senna] 10 ml GT HS 07/31/17 Metoprolol Tartrate [Lopressor -] 50 mg GT BID #60 tablet 08/10/17 Amiodarone HCl [Cordarone -] 200 mg GT DAILY 10/24/17 Apixaban [Eliquis -] 5 mg GT BID 10/24/17 Collagenase Clostridium Hist. [Santyl -] 1 applic TP TID PRN 10/24/17 Digoxin [Lanoxin -] 0.25 mg GT DAILY 10/24/17 Furosemide [Lasix -] 40 mg GT DAILY 10/24/17 Potassium Chloride [Potassium Chloride Oral Liquid] 20 meq GT DAILY 10/24/17 Zinc Oxide 20% Topical Oint 454 gm NR BID PRN 10/24/17 levETIRAcetam [Keppra Oral Solution -] 500 mg GT BID #1 bottle 01/09/18 Albuterol 2.5/Ipratropium 0.5 [Duoneb -] 1 amp NEB TID 03/09/18 Ergocalciferol (Vitamin D2) [Calcidol] 6.25 ml PO WEEKLY 03/09/18 Mupirocin Ointment [Bactroban 2% Ointment -] 1 applic TP BID 03/09/18 Lactobacillus Acidophilus [Bacid -] 1 tab GT BID tab 03/12/18 Levofloxacin [Levaquin] 500 mg GT DAILY 05/09/18 Levothyroxine [Synthroid -] 150 mcg GT DAILY@0700 05/09/18 Anemia: Yes Asthma: No Cancer: Yes (malignant neoplasm of penis, scrotum,) Cardiac Disorders: Yes (RHEUMATIC MITRAL VALVE DISEASE, atrial fibrillation) CVA: No COPD: Yes CHF: Yes Dementia: No Diabetes: No GI Disorders: Yes (gerd) Disorders: No HTN: Yes Hypercholesterolemia: No Kidney Stones: No Liver Disease: No Seizures: Yes (drug related seizure 12/2012) Thyroid Disease: Yes (HYPOTHYROID) Other medical history: stage 1 ulcer sacrum/stage 2 ulcer right leg/stage 1 to left leg. 05/09/18 - Surgical History Abdominal Surgery: No Appendectomy: No Cardiac Surgery: No Cholecystectomy: No Lung Surgery: No Neurologic Surgery: No Orthopedic Surgery: No - Reproductive History Testicular Surgery: No - Suicide/Smoking/Psychosocial Hx Smoking History: Unknown if ever smoked Have you smoked in the past 12 months: No If you are a former smoker, when did you quit?: 9 years ago Information on smoking cessation initiated: No Hx Alcohol Use: No Drug/Substance Use Hx: No Substance Use Type: None Hx Substance Use Treatment: Yes ([facility]) Review of Systems - Review of Systems Able to Perform ROS?: No (trached and pegged) *Physical Exam - Vital Signs Last Vital Signs Temp Pulse Resp BP Pulse Ox 63 12 120/70 100 05/09/18 14:22 05/09/18 14:22 05/09/18 14:22 05/09/18 14:22 - Physical Exam General Appearance: Yes: Obese, Other (trached, peg, non verbal and non- interactive) HEENT: positive: DEAN. negative: Normal ENT Inspection (trach in place, no erythema or swelling aroudn site. ) Neck: positive: Trachea midline, Normal Thyroid, Supple. negative: Tender, Rigid Respiratory/Chest: positive: Lungs Clear (mechanical lung sounds). negative: Normal Breath Sounds, Respiratory Distress, Accessory Muscle Use Cardiovascular: positive: Regular Rhythm, Regular Rate Gastrointestinal/Abdominal: positive: Flat, Soft, Increased Bowel Sounds, Other (G tube in place with 2 cm myah at the skin and erythema/ induration around the insertion site. Suprapubic catheter in place as well mild induration at that site as well. ). negative: Normal Bowel Sounds, Tender Musculoskeletal: positive: Other (flaccid). negative: Normal Inspection Extremity: positive: Normal Capillary Refill, Normal Inspection, Other (flacid) Integumentary: positive: Dry, Warm Neurologic: positive: Other (flaccid with no purposeful movement) Moderate Sedation - Procedure Monitoring Vital Signs: Procedure Monitoring Vital Signs Temperature Pulse Rate 63 05/09/18 14:22 Respiratory Rate 12 05/09/18 14:22 Blood Pressure 120/70 05/09/18 14:22 O2 Sat by Pulse Oximetry (%) 100 05/09/18 14:22 ED Treatment Course - LABORATORY CBC & Chemistry Diagram: 05/09/18 15:34 05/09/18 15:50 Medical Decision Making - Medical Decision Making 63 year old bed bound male Trach'd and PEG'd presenting with Peg site erythema and mildly elevated temperature concerning for cellulites at the site. CBC and CMP wnl. Spoke to Dr. Corado on the phone regarding patient and she recommended we get some type of imaging for the placement of the G tube and recommended CT if we are concerned for tube feed extravasation into the subcutaneous skin. CT abdomen pelvis ordered after large bore access was achieved in the patient's left bicep with great difficulty (patient contracted with frequent spasms). Patient signed out to Dr. Washington pending return of CT results. 05/09/18 22:46 *DC/Admit/Observation/Transfer Diagnosis at time of Disposition: Gastrostomy tube dysfunction - Discharge Dispostion Decision to Admit order: Yes - Referrals Referrals: Guanakito Suarez MD [Primary Care Provider] - - Patient Instructions - Post Discharge Activity
[2018-05-09 16:22] LABS: BASO % 0.7 % (0-2.0); EOS % 9.3 % (0-4.5); HEMATOCRIT 22.5 % (35.4-49); HEMOGLOBIN 7.5 GM/dL (11.7-16.9); LYMPH % 14.8 % (8-40); MCH 30.1 pg (25.7-33.7); MCHC 33.1 g/dl (32.0-35.9); MEAN PLT VOLUME 8.5 fl (7.5-11.1); MONO % 4.9 % (3.8-10.2); NEUT % 70.3 % (42.8-82.8); PLATELET COUNT 294 K/MM3 (134-434); RBC 2.48 M/mm3 (4.00-5.60); WHITE BLOOD COUNT 8.2 K/mm3 (4.0-10.0)
[2018-05-09 16:36] LABS: INR 1.28 (0.83-1.09); PROTHROMBIN TIME (PATIENT) 15.1 SEC (9.7-13.0)
--- NOTE | 2018-05-09 16:38 | PDOC ---
Attending Attestation - HPI HPI: 05/09/18 16:39 The patient 63 year old male with a significant past medical history of HTN, Afib (on Eliquis), CHF, COPD, s/p tracheostomy, s/p PEG, s/p suprapubic catheter , quadriplegia, Hep C, Hypothyroidism, decubitus ulcers sent from [facility] for who presents to the emergency department via ems from [facility] for evaluation of infected GTube. Allergies: NKDA PCP - Dr. Suarez <Zoya Kovacs - Last Filed: 05/09/18 16:39> - Resident Resident Name: Sumit Troy - ED Attending Attestation I have performed the following: I have examined & evaluated the patient, The case was reviewed & discussed with the resident, I agree w/resident's findings & plan, Exceptions are as noted - HPI HPI: - Physicial Exam PE: 05/09/18 17:04 On examination Pt eyes open and blinking spontaneously Pt looking to the Left Pt with spontaneous posturing Tachycardia Lungs are clear bilaterally abd seems soft, non distended left upper abdominal g tube in place, surrounding skin erythema (+) suprapubic cathether in place Decubitus - Medical Decision Making EKG - Afib rate of 98 bpm, L axis deviation, artifact baseline, no st elevation or depression 05/09/18 16:49 Laboratory Tests 05/06/18 05/06/18 05/09/18 02:04 02:04 15:34 WBC 9.8 8.2 Hgb 8.4 L 7.5 L Hct 24.6 L 22.5 L Plt Count 210 D 294 D PT with INR 14.80 H INR 1.25 H 05/09/18 15:34 WBC Hgb Hct Plt Count PT with INR 15.10 H INR 1.28 H 05/09/18 17:07 Laboratory Tests 05/09/18 05/09/18 05/09/18 15:34 15:50 15:50 INR 1.28 H Sodium 139 Potassium 4.4 Chloride 104 Carbon Dioxide 30 BUN 23 H Creatinine 0.[address] pending Pt signed out to overnight team Abx ordered Admit <Beatriz Quinteros - Last Filed: 05/10/18 13:02>
[2018-05-09 16:59] LABS: ALK PHOS 60 U/L (45-117); ANION GAP 5 MMOL/L (8-16); BILIRUBIN,TOTAL < 0.1 mg/dL (0.2-1); BLOOD UREA NITROGEN 23 mg/dL (7-18); CALCIUM 7.8 mg/dL (8.5-10.1); CHLORIDE 104 mmol/L (98-107); CO2 30 mmol/L (21-32); CREATININE 0.6 mg/dL (0.55-1.3); GLUCOSE,RANDOM 91 mg/dL (74-106); POTASSIUM 4.4 mmol/L (3.5-5.1); SGOT/AST 33 U/L (15-37); SGPT/ALT 26 U/L (13-61); SODIUM 139 mmol/L (136-145)
[2018-05-09] MEDS ORDERED: ACETAMINOPHEN 1000 MG/100 ML VIAL (NON FORMULARY) IVPB ONE (17:46)
[2018-05-09] MEDS ORDERED: ACETAMINOPHEN INJECTION 100 ML IVPB ONE (18:11)
[2018-05-09] MEDS ORDERED: PIPERACILLIN/TAZOB 3.375 GM 3.375 GM in DEXTROSE 5%-WATER - 50 ML IVPB ONE (18:15)
[2018-05-09] MEDS ORDERED: VANCOMYCIN HCL 1,500 MG in DEXTROSE 5%-WATER - 500 ML IVPB ONE (18:16)
[2018-05-09] MEDS ORDERED: PIPERACILLIN/TAZOB 3.375 GM 3.375 GM/50 ML BAG IVPB ONE (18:56)
--- NOTE | 2018-05-09 19:43 | PDOC ---
*Physical Exam - Vital Signs Last Vital Signs Temp Pulse Resp BP Pulse Ox 99.9 F H 96 H 14 119/83 100 05/09/18 15:25 05/09/18 17:30 05/09/18 17:30 05/09/18 17:30 05/09/18 17:30 ED Treatment Course - LABORATORY CBC & Chemistry Diagram: 05/09/18 15:34 05/09/18 15:50 - ADDITIONAL ORDERS Additional order review: Laboratory Results 05/09/18 05/09/18 05/09/18 15:50 15:50 15:34 PT with INR 15.10 H INR 1.28 H Sodium 139 Potassium 4.4 Chloride 104 Carbon Dioxide 30 Anion Gap 5 L BUN 23 H Creatinine 0.6 Creat Clearance w eGFR > 60 Random Glucose 91 Lactic Acid 1.3 Calcium 7.8 L Total Bilirubin < 0.1 L AST 33 ALT 26 Alkaline Phosphatase 60 Total Protein 7.0 Albumin 2.0 L 05/09/18 15:34 RBC 2.48 L MCV 91.0 MCHC 33.1 RDW 17.0 H MPV 8.5 D Neutrophils % 70.3 Lymphocytes % 14.8 Monocytes % 4.9 Eosinophils % 9.3 H Basophils % 0.7 - Medications Given in the ED: ED Medications Discontinued Medications Generic Name Dose Route Start Last Admin Trade Name Williamq PRN Reason Stop Dose Admin Acetaminophen 1,000 mg 05/09/18 17:46 05/09/18 18:13 Ofirmev Injection - IVPB 05/09/18 17:47 1,000 mg ONCE ONE Administration Piperacillin Sod/Tazobactam 50 mls @ 100 mls/hr 05/09/18 18:15 05/09/18 19:28 Sod 3.375 gm/ Dextrose IVPB 05/09/18 18:44 100 mls/hr ONCE ONE Administration Protocol Medical Decision Making - Medical Decision Making 05/09/18 19:43 Tate Wagoner is a 63yo man with a PMH of HTN, a-fib on Eliquis, CHF, COPD, hepC, hypothyroidism, quadriplegia w/p trach, PEG, suprapubic catheter who was sent from [facility] for suspected infection around is g-tube and SP catheter. - Per Dr Troy, concern that G-tube is displaced and will need surgical repair/ replacement - Workup in ED has included labs notable for anemia w/ hgb 7.5, UA with blood, WBC, protein - CT abd w/ contrast ordered for evaluation of g-tube 05/09/18 20:25 - Taken to CT, read pending. Reviewed while CT was being obtained; appears that G-tube is not in stomach. 05/09/18 22:01 - CT indicates g-tube within abdominal wall with surrounding fluid collection - Spoke to Dr Corado. Will attempt to replace g-tube at bedside. Should be kept NPO overnight for possible surgical repair. - Spoke to hospitalist team regarding admission. Will be admitted under Dr Galindo. Discussed with Dr Colmenares. Shahana Washington PGY1 *DC/Admit/Observation/Transfer Diagnosis at time of Disposition: Gastrostomy tube dysfunction - Discharge Dispostion Decision to Admit order: Yes - Referrals - Patient Instructions - Post Discharge Activity
[2018-05-09 19:48] LABS: URINE APPEARANCE SLCLOUDY; URINE BILIRUBIN NEGATIVE (<2.0 mg/dL); URINE COLOR YELLOW; URINE GLUCOSE (UA) NEGATIVE (NEGATIVE); URINE KETONE NEGATIVE (NEGATIVE); URINE LEUK ESTERASE 1+ (NEGATIVE); URINE NITRITE NEGATIVE (NEGATIVE); URINE PROTEIN 1+ (NEGATIVE); URINE UROBILINOGEN NEGATIVE mg/dL (0.2-1.0)
[2018-05-09 19:58] LABS: EPI CELLS RARE /HPF (FEW); URINE MUCUS RARE
[2018-05-09] MEDS ORDERED: ZINC OXIDE 20% TOPICAL OINTMENT 30 GM TUBE NR PRN (22:32)
--- NOTE | 2018-05-09 23:19 | HP ---
CHIEF COMPLAINT: Here from [facility]. Gastrostomy tube with erythema. PCP: Dr. Luann Bhakta HISTORY OF PRESENT ILLNESS 63 year old male with multiple medical problems including quadraplegia with suprapubic catheter, tracheostomy/ventilator dependent due to unknown etiology( vent settings TV 378, FIO2 40%, PEEP 5), atrial fibrillation on eliquis, CHF( diastolic versus systolic unknown), hepatitis C, hypothyroidism, seizure(on Keppra) and anemia who presents from [facility] with erthymea to gastrostomy-tube site. Upon evaluation with CT scan of abdomen with contrast result demonstrated G- tube in the abdominal wall with swelling at the left rectus muscle likely representing a hematoma. On presentation to the ER he was initially hypotensive however blood pressure has improved. Lab finding notable for a normal WBC and lactic acid, hemoglobin 7.5, and hematocrit of 22.5. He received one dosage of IV vancomycin and pipercillin. General Surgery- Dr. Corado has been consulted. CXR demonstrated mild congestion. UA with 1+ leukoesterase, wbc 20, cloudy colored urine and negative nitrite. At baseline patient is somnolent, nonverbal, and responds to painful stimuli. Recent Travel:unable to obtain PAST MEDICAL HISTORY: tracheostomy/ventilator dependent w/quadraplegia and suprapubic catheter (unknown etiology), atrial fibrillation, CHF, seizures, hepatitis C, hypothyroidism, anemia PAST SURGICAL HISTORY:unknown Social History:unable to obtain due to patient mental status Family History:unknown Allergies No Known Allergies Allergy (Verified 05/09/18 14:24) HOME MEDICATIONS: Home Medications Medication Instructions Recorded Acetaminophen [Tylenol 500 mg GT Q6H PRN 07/31/17 .Extra-Strength -] Hypromellose 0.5% Opth Soln 1 drop OU QID 07/31/17 [Artificial Tears] Sennosides [Senna] 10 ml GT HS 07/31/17 Metoprolol Tartrate [Lopressor -] 50 mg GT BID #60 tablet 08/10/17 Amiodarone HCl [Cordarone -] 200 mg GT DAILY 10/24/17 Apixaban [Eliquis -] 5 mg GT BID 10/24/17 Collagenase Clostridium Hist. 1 applic TP TID PRN 10/24/17 [Santyl -] Digoxin [Lanoxin -] 0.25 mg GT DAILY 10/24/17 Furosemide [Lasix -] 40 mg GT DAILY 10/24/17 Potassium Chloride [Potassium 20 meq GT DAILY 10/24/17 Chloride Oral Liquid] Zinc Oxide 20% Topical Oint 454 gm NR BID PRN 10/24/17 levETIRAcetam [Keppra Oral 500 mg GT BID #1 bottle 01/09/18 Solution -] Albuterol 2.5/Ipratropium 0.5 1 amp NEB TID 03/09/18 [Duoneb -] Ergocalciferol (Vitamin D2) 6.25 ml PO WEEKLY 03/09/18 [Calcidol] Mupirocin Ointment [Bactroban 2% 1 applic TP BID 03/09/18 Ointment -] Lactobacillus Acidophilus [Bacid -] 1 tab GT BID tab 03/12/18 Levofloxacin [Levaquin] 500 mg GT DAILY 05/09/18 Levothyroxine [Synthroid -] 150 mcg GT DAILY@0700 05/09/18 REVIEW OF SYSTEMS unable to obtain accurate ROS due to patient mental status PHYSICAL EXAMINATION Vital Signs - 24 hr 05/09/18 05/09/18 05/09/18 14:22 14:50 15:25 Temperature 99.9 F H Pulse Rate 63 Pulse Rate [ 77 Radial] Respiratory 12 18 14 Rate Blood Pressure 120/70 Blood Pressure 90/57 L [Left Arm] O2 Sat by Pulse 100 100 Oximetry (%) 05/09/18 05/09/18 05/09/18 15:34 16:09 16:30 Temperature Pulse Rate Pulse Rate [ 83 90 Radial] Respiratory 12 14 147 H Rate Blood Pressure Blood Pressure 83/48 L 101/84 [Left Arm] O2 Sat by Pulse 100 100 Oximetry (%) 05/09/18 05/09/18 05/09/18 17:30 20:26 20:30 Temperature Pulse Rate Pulse Rate [ 96 H 92 H Radial] Respiratory 14 21 H 12 Rate Blood Pressure Blood Pressure 119/83 98/58 L [Left Arm] O2 Sat by Pulse 100 100 Oximetry (%) GENERAL: eyes open, does not follow commands appropriately, nonverbal, responsive to painful stimuli NEUROLOGICAL: eyes fixed, no movement to upper and lower extremities EYES: pupils equal, round and fixed Neck: no JVD LUNGS: coarse breath sounds, no use of accessory muscles, no wheezing HEART: rate irregular and normal ABDOMEN: slightly distended, erythematous area by G-tube present nontender MUSCULOSKELETAL: no movement to bilateral upper and lower extremities EXTREMITIES: 2+ lower extremity pitting edema present bilaterally warm on palpation 05/09/18 05/09/18 05/09/18 15:34 15:34 15:50 WBC 8.2 RBC 2.48 L Hgb 7.5 L Hct 22.5 L MCV 91.0 MCH 30.1 MCHC 33.1 RDW 17.0 H Plt Count 294 D MPV 8.5 D Absolute Neuts (auto) 5.8 Neutrophils % 70.3 Lymphocytes % 14.8 Monocytes % 4.9 Eosinophils % 9.3 H Basophils % 0.7 Nucleated RBC % 0 PT with INR 15.10 H INR 1.28 H Sodium 139 Potassium 4.4 Chloride 104 Carbon Dioxide 30 Anion Gap 5 L BUN 23 H Creatinine 0.6 Creat Clearance w eGFR > 60 Random Glucose 91 Lactic Acid Calcium 7.8 L Total Bilirubin < 0.1 L AST 33 ALT 26 Alkaline Phosphatase 60 Total Protein 7.0 Albumin 2.0 L Urine Color Urine Appearance Urine pH Ur Specific Eek Urine Protein Urine Glucose (UA) Urine Ketones Urine Blood Urine Nitrite Urine Bilirubin Urine Urobilinogen Ur Leukocyte Esterase Urine WBC (Auto) Urine RBC (Auto) Ur Epithelial Cells Urine Mucus Blood Type Antibody Screen 05/09/18 05/09/18 05/09/18 15:50 19:30 19:30 WBC RBC Hgb Hct MCV MCH MCHC RDW Plt Count MPV Absolute Neuts (auto) Neutrophils % Lymphocytes % Monocytes % Eosinophils % Basophils % Nucleated RBC % PT with INR INR Sodium Potassium Chloride Carbon Dioxide Anion Gap BUN Creatinine Creat Clearance w eGFR Random Glucose Lactic Acid 1.3 Calcium Total Bilirubin AST ALT Alkaline Phosphatase Total Protein Albumin Urine Color Yellow Urine Appearance Slcloudy Urine pH 7.0 Ur Specific Eek 1.023 Urine Protein 1+ H Urine Glucose (UA) Negative Urine Ketones Negative Urine Blood 1+ H Urine Nitrite Negative Urine Bilirubin Negative Urine Urobilinogen Negative Ur Leukocyte Esterase 1+ H Urine WBC (Auto) 20 Urine RBC (Auto) 160 Ur Epithelial Cells Rare Urine Mucus Rare Blood Type A POSITIVE Antibody Screen Negative ASSESSMENT/PLAN: 63 year old male with multiple medical problems including quadraplegia, suprapublic catheter, tracheostomy/ventilator dependent etiology is unknown, atrial fibrillation on eliquis, CHF(unknown diastolic versus systolic), hepatitis C, hypothyroidism, and anemia who presented with erthymea to G-tube site. He was found to have a displaced G-Tube with swelling likely representing a hematoma/fluid collection as seen on CT scan of abdomen w/ contrast. He was also found to have anemia. He was admitted for G-Tube evaluation and further medical management. G-Tube Displacement with Erythema/ Fluid Collection versus hematoma He was treated with one dosage of IV Vancomycin and Pipercillin. No leukocytosis ,normal lactic acid, remains afebrile. General Surgery Consulted- Dr. Corado, will see patient in am. Continue with IV Zosyn 2.25 mg every 6 hr. ID consulted for evaluation/ management. Blood cultures pending. NPO, will hold on giving IV fluids as patient has signs of fluid overload, CXR with mild congestion. Congestive Heart Failure(diastolic versus systolic unknown) Patient has signs of fluid overload on physical exam. Chest XR with mild congestion. Check BNP with am labs. Will give one dosage of IV lasix 40 mg now. Monitor renal studies, electrolytes and urine output. Consult Cardiology for evaluation. Anemia Patient was hypotensive with SBP in the 80's on arrival to ER. Will transfuse 1 Unit of PRBC's for hemoglobin 7.5/hematocrit 22.5. Repeat CBC post transfusion. Monitor for signs of fluid overload. ?UTI Patient has a suprapubic catheter. UA with cloudy color, 1+ leukoesterase, WBC 20, negative nitrite. UA and blood culture are pending. Continue to monitor. Chronic Respiratory Failure(Ventilator Dependent) Continue with current ventilator settings (vent settings TV 378, FIO2 40%, PEEP 5). He has no evidence of hypoxemia. Manage as per Respiratory Team. Atrial Fibrillation Rates controlled. Amiodarone, digoxin, metoprolol tartrate and eliquis are on hold due to G-tube displacement. Add metoprolol 5 mg iv q6hr prn for heart rate > 120 and if bp tolerates. Check digoxin level. Currently on no anticoagulation due to anemia, ?hematoma versus fluid collection in setting of G-Tube displacement. Resume Eliquis once G-tube issue resolved. Hypothyroidism Synthroid on hold due to G-tube displacement. Resume when G-tube working well. Check TSH level. Hepatitis C Stable, Liver enzymes WNL. History Seizures Resume Keprra once G-tube working well. FEN NPO, monitor electrolytes and volume status closely, resume G-tube feeding once G-tube is functioning properly. Albuminemia Coding Validator consulted for evaluation as patient on tube feeding. DVT Prophylaxsis Bilateral SCD's, Resume Eliquis once G- Tube is functioning properly and bleeding is excluded. Visit type - Emergency Visit Emergency Visit: Yes ED Registration Date: 05/09/18 Care time: The patient presented to the Emergency Department on the above date and was hospitalized for further evaluation of their emergent condition. - New Patient This patient is new to me today: Yes Date on this admission: 05/10/18 - Critical Care Critical Care patient: No
[2018-05-10] MEDS ORDERED: FUROSEMIDE 40 MG/4 ML INJECTABLE VIAL IVPUSH ONE (00:07)
[2018-05-10] MEDS ORDERED: FUROSEMIDE 40 MG/4 ML INJECTABLE VIAL ONE (00:14)
[2018-05-10] MEDS ORDERED: METOPROLOL TARTRATE 5 MG/5 ML VIAL IVPUSH PRN (00:37)
[2018-05-10] MEDS: PIPERACILLIN/TAZOB 2.25 GM 2.25 GM in DEXTROSE 5%-WATER - 50 ML IVPB SCH ×3 (03:45→15:10)
[2018-05-10] MEDS ORDERED: ZINC OXIDE 20% TOPICAL OINTMENT 30 GM TUBE TP PRN (04:13)
[2018-05-10 07:54] LABS: EOS % 10.2 % (0-4.5); HEMATOCRIT 25.3 % (35.4-49); HEMOGLOBIN 8.3 GM/dL (11.7-16.9); LYMPH % 14.1 % (8-40); MCH 30.1 pg (25.7-33.7); MCHC 32.8 g/dl (32.0-35.9); MEAN CELL VOLUME 91.8 fl (80-96); MEAN PLT VOLUME 8.9 fl (7.5-11.1); MONO % 6.5 % (3.8-10.2); NEUT % 68.2 % (42.8-82.8); PLATELET COUNT 276 K/MM3 (134-434); RBC 2.76 M/mm3 (4.00-5.60); RDW 16.8 % (11.9-15.9); WHITE BLOOD COUNT 6.8 K/mm3 (4.0-10.0)
[2018-05-10] MEDS: ALBUTEROL SO4 2.5/IPRATROPIUM 0.5 INH SOL 3 ML VIAL.NEB. NEB SCH ×3 (08:02→20:55)
[2018-05-10 08:37] LABS: ANION GAP 8 MMOL/L (8-16); BLOOD UREA NITROGEN 21 mg/dL (7-18); CALCIUM 8.5 mg/dL (8.5-10.1); CHLORIDE 102 mmol/L (98-107); CO2 31 mmol/L (21-32); CREATININE 0.8 mg/dL (0.55-1.3); GLUCOSE,RANDOM 95 mg/dL (74-106); SODIUM 140 mmol/L (136-145)
[2018-05-10 08:45] VITALS: BMI 22.9
[2018-05-10 09:20] LABS: N-TERMINAL BNP 2335.4 pg/ml (5-125)
[2018-05-10] MEDS ORDERED: MUPIROCIN 2% TOPICAL OINTMENT 22 GM TUBE TP SCH (10:00)
[2018-05-10] MEDS ORDERED: ENOXAPARIN NA (PORCINE) 30 MG/0.3 ML DISP.SYRIN SQ SCH (10:00)
[2018-05-10] MEDS: ARTIFICIAL TEARS (POLYVINYL ALCOHOL) OPTH DROPS OU SCH ×4 (10:00→22:14)
[2018-05-10] MEDS ORDERED: PIPERACILLIN/TAZOBACTAM 2.25 GM VIAL IVPB ONE (10:31)
[2018-05-10] MEDS ORDERED: DEXTROSE 5%-WATER - 50 ML IVPB ONE ×2 (10:32→18:14)
--- NOTE | 2018-05-10 10:33 | CON.CARD ---
Cardiology Consult (text) - Consultation Consultation Note: cc: sent from [place] for erythema near g tube hpi: 63 m hx afib, syst chf, ex drug abuse, cardiac arrest with anoxic brain injury and trach, suprapubic catheter, hcv, sent from [place] for erythema near g tube. Pt non communicative, hx from charts. Appears comfortable. Imaging shows g tube in abd wall, plans for surgery eval. pmh: per hpi psh: g tube social: ex drug abuse fam: unknown ros: unable to obtain 2/2 non communicative meds: Home Medications Medication Instructions Recorded Acetaminophen [Tylenol 500 mg GT Q6H PRN 07/31/17 .Extra-Strength -] Hypromellose 0.5% Opth Soln 1 drop OU QID 07/31/17 [Artificial Tears] Sennosides [Senna] 10 ml GT HS 07/31/17 Metoprolol Tartrate [Lopressor -] 50 mg GT BID #60 tablet 08/10/17 Amiodarone HCl [Cordarone -] 200 mg GT DAILY 10/24/17 Apixaban [Eliquis -] 5 mg GT BID 10/24/17 Collagenase Clostridium Hist. 1 applic TP TID PRN 10/24/17 [Santyl -] Digoxin [Lanoxin -] 0.25 mg GT DAILY 10/24/17 Furosemide [Lasix -] 40 mg GT DAILY 10/24/17 Potassium Chloride [Potassium 20 meq GT DAILY 10/24/17 Chloride Oral Liquid] Zinc Oxide 20% Topical Oint 454 gm NR BID PRN 10/24/17 levETIRAcetam [Keppra Oral 500 mg GT BID #1 bottle 01/09/18 Solution -] Albuterol 2.5/Ipratropium 0.5 1 amp NEB TID 03/09/18 [Duoneb -] Ergocalciferol (Vitamin D2) 6.25 ml PO WEEKLY 03/09/18 [Calcidol] Mupirocin Ointment [Bactroban 2% 1 applic TP BID 03/09/18 Ointment -] Lactobacillus Acidophilus [Bacid -] 1 tab GT BID tab 03/12/18 Levofloxacin [Levaquin] 500 mg GT DAILY 05/09/18 Levothyroxine [Synthroid -] 150 mcg GT DAILY@0700 05/09/18 Vital Signs Period Temp Pulse Resp BP Sys/Bhardwaj Pulse Ox Last 24 Hr 98.4 F-99.9 F 63-96 12-147 83-120/48-84 100-100 nad no jvd rr, irreg s1s2 no mrg cta bl ant, trached abd nd pos bs no jaundice diaphoresis pos dp pt no carotid bruits no le e/c/c awake, non communicative Laboratory Last Values WBC 6.8 K/mm3 (4.0-10.0) 05/10/18 06:00 RBC 2.76 M/mm3 (4.00-5.60) L 05/10/18 06:00 Hgb 8.3 GM/dL (11.7-16.9) L 05/10/18 06:00 Hct 25.3 % (35.4-49) L 05/10/18 06:00 MCV 91.8 fl (80-96) 05/10/18 06:00 MCH 30.1 pg (25.7-33.7) 05/10/18 06:00 MCHC 32.8 g/dl (32.0-35.9) 05/10/18 06:00 RDW 16.8 % (11.9-15.9) H 05/10/18 06:00 Plt Count 276 K/MM3 (134-434) 05/10/18 06:00 MPV 8.9 fl (7.5-11.1) 05/10/18 06:00 Absolute Neuts (auto) 4.6 K/mm3 (1.5-8.0) 05/10/18 06:00 Neutrophils % 68.2 % (42.8-82.8) 05/10/18 06:00 Lymphocytes % 14.1 % (8-40) 05/10/18 06:00 Monocytes % 6.5 % (3.8-10.2) 05/10/18 06:00 Eosinophils % 10.2 % (0-4.5) H 05/10/18 06:00 Basophils % 1.0 % (0-2.0) 05/10/18 06:00 Nucleated RBC % 0 % (0-0) 05/10/18 06:00 PT with INR 15.10 SEC (9.7-13.0) H 05/09/18 15:34 INR 1.28 (0.83-1.09) H 05/09/18 15:34 Sodium 140 mmol/L (136-145) 05/10/18 06:00 Potassium 4.0 mmol/L (3.5-5.1) 05/10/18 06:00 Chloride 102 mmol/L (98-107) 05/10/18 06:00 Carbon Dioxide 31 mmol/L (21-32) 05/10/18 06:00 Anion Gap 8 MMOL/L (8-16) 05/10/18 06:00 BUN 21 mg/dL (7-18) H 05/10/18 06:00 Creatinine 0.8 mg/dL (0.55-1.3) 05/10/18 06:00 Creat Clearance w eGFR > 60 (>60) 05/10/18 06:00 Random Glucose 95 mg/dL (74-106) 05/10/18 06:00 Lactic Acid 1.3 mmol/L (0.4-2.0) 05/09/18 15:50 Calcium 8.5 mg/dL (8.5-10.1) 05/10/18 06:00 Total Bilirubin < 0.1 mg/dL (0.2-1) L 05/09/18 15:50 AST 33 U/L (15-37) 05/09/18 15:50 ALT 26 U/L (13-61) 05/09/18 15:50 Alkaline Phosphatase 60 U/L (45-117) 05/09/18 15:50 B-Natriuretic Peptide 2335.4 pg/ml (5-125) H 05/10/18 06:00 Total Protein 7.0 g/dl (6.4-8.2) 05/09/18 15:50 Albumin 2.0 g/dl (3.4-5.0) L 05/09/18 15:50 TSH 69.20 uIU/ml (0.358-3.74) H D 05/10/18 06:00 Urine Color Yellow 05/09/18 19:30 Urine Appearance Slcloudy 05/09/18 19:30 Urine pH 7.0 (5.0-8.0) 05/09/18 19:30 Ur Specific [place] 1.023 (1.010-1.035) 05/09/18 19:30 Urine Protein 1+ (NEGATIVE) H 05/09/18 19:30 Urine Glucose (UA) Negative (NEGATIVE) 05/09/18 19:30 Urine Ketones Negative (NEGATIVE) 05/09/18 19:30 Urine Blood 1+ (NEGATIVE) H 05/09/18 19:30 Urine Nitrite Negative (NEGATIVE) 05/09/18 19:30 Urine Bilirubin Negative (<2.0 mg/dL) 05/09/18 19:30 Urine Urobilinogen Negative mg/dL (0.2-1.0) 05/09/18 19:30 Ur Leukocyte Esterase 1+ (NEGATIVE) H 05/09/18 19:30 Urine WBC (Auto) 20 /hpf (3-5) 05/09/18 19:30 Urine RBC (Auto) 160 /hpf (0-3) 05/09/18 19:30 Ur Epithelial Cells Rare /HPF (FEW) 05/09/18 19:30 Urine Mucus Rare 05/09/18 19:30 Digoxin 1.52 ng/ml (0.8-2.0) 05/10/18 06:00 Blood Type A POSITIVE 05/09/18 19:30 Antibody Screen Negative 05/09/18 19:30 Crossmatch See Detail 05/09/18 19:30 cxr: mild chf, r infiltrate ecg: afib, rate ok, no ischemic changes echo 08/2017: mod-sev dec lvef, global hk, nl rv, no sig valve path a/p: 63 m hx afib, syst chf, ex drug abuse, cardiac arrest with anoxic brain injury and trach, suprapubic catheter, hcv, sent from [place] for erythema near g tube. malfunctioning g-tube: -imaging shows g tube in abd wall, surgery eval pending -?hematoma near site so AC on hold for now -no cardiac contraindications to g-tube replacement afib: -rate ok, cont iv bb prn until g tube working -at [place] on amio 200, lopressor 50 bid, and dig (level ok here). resume when able to take po -ac on hold 2/2 hematoma near g-tube site chronic syst chf: -stable, resume po lasix when able to take pills -for now can give iv lasix prn hypothyroid: -tsh elevated, management per pmd
--- NOTE | 2018-05-10 10:35 | EKG ---
Test Reason : Blood Pressure : / mmHG Vent. Rate : 098 BPM Atrial Rate : 202 BPM P-R Int : 000 ms QRS Dur : 090 ms QT Int : 372 ms P-R-T Axes : 000 -36 131 degrees QTc Int : 474 ms POOR DATA QUALITY, INTERPRETATION MAY BE ADVERSELY AFFECTED ATRIAL FIBRILLATION LEFT AXIS DEVIATION LOW VOLTAGE QRS NONSPECIFIC ST AND T WAVE ABNORMALITY ABNORMAL ECG WHEN COMPARED WITH ECG OF 06-MAY-2018 02:30, QT HAS LENGTHENED Confirmed by KARLO ROY, ERIC ([id number]) on 05/10/2018 10:34:45 AM Referred By: Confirmed By:ERIC DIETRICH MD
[2018-05-10] MEDS: levETIRAcetam 500 MG/5 ML INJECTION VIAL IVPB SCH ×3 (11:01→22:13)
--- NOTE | 2018-05-10 12:44 | CON.ID ---
Consult Consult Specialty:: infectious diseases Referred by:: hospitalist Reason for Consultation:: cellulitis around the peg tube - History of Present Illness Chief Complaint: infected g tube History of Present Illness: patient who was send from [facility] history obtained from the charts as patient is in no condition to give any history who is on a vent ,was send here because the shelter noted that the patient has cellulitis around the g tube it seems that the plan is to change the peg tube he is a 63yo man with a PMH of HTN, a-fib on Eliquis, CHF, COPD, hepC, hypothyroidism, quadriplegia w/p trach, PEG, suprapubic catheter - History Source History Provided By: Medical Record Limitations to Obtaining History: Clinical Condition - Past Medical History 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 rheumatic) Pulmonary: Yes: COPD (ventilator dependent with tracheostomy) Gastrointestinal: Yes: Constipation, GERD, Other (Feeding gastrostomy tube) Hepatobiliary: Yes: Cholelithiasis, Hepatitis C (by other's history) Renal/: Yes: Neurogenic Bladder (with suprapubic cystostomy) Infectious Disease: Yes: Other (genital condylomata, ? typhoid fever) Psych: Yes: Addictions (alcoholism) ENT: Yes: Other (dry eye syndrome) Endocrine: Yes: Hypothyroidism - Alcohol/Substance Use Hx Alcohol Use: Yes History of Substance Use: reports: Heroin - Smoking History Smoking history: Unknown if ever smoked Have you smoked in the past 12 months: No If you are a former smoker, when did you quit?: 9 years ago - Social History ADL: Support Services History of Recent Travel: No Home Medications - Allergies Allergies/Adverse Reactions: Allergies Allergy/AdvReac Type Severity Reaction Status Date / Time No Known Allergies Allergy Verified 05/09/18 14:24 - Home Medications Home Medications: Ambulatory Orders Acetaminophen [Tylenol .Extra-Strength -] 500 mg GT Q6H PRN 07/31/17 Hypromellose 0.5% Opth Soln [Artificial Tears] 1 drop OU QID 07/31/17 Sennosides [Senna] 10 ml GT HS 07/31/17 Metoprolol Tartrate [Lopressor -] 50 mg GT BID #60 tablet 08/10/17 Amiodarone HCl [Cordarone -] 200 mg GT DAILY 10/24/17 Apixaban [Eliquis -] 5 mg GT BID 10/24/17 Collagenase Clostridium Hist. [Santyl -] 1 applic TP TID PRN 10/24/17 Digoxin [Lanoxin -] 0.25 mg GT DAILY 10/24/17 Furosemide [Lasix -] 40 mg GT DAILY 10/24/17 Potassium Chloride [Potassium Chloride Oral Liquid] 20 meq GT DAILY 10/24/17 Zinc Oxide 20% Topical Oint 454 gm NR BID PRN 10/24/17 levETIRAcetam [Keppra Oral Solution -] 500 mg GT BID #1 bottle 01/09/18 Albuterol 2.5/Ipratropium 0.5 [Duoneb -] 1 amp NEB TID 03/09/18 Ergocalciferol (Vitamin D2) [Calcidol] 6.25 ml PO WEEKLY 03/09/18 Mupirocin Ointment [Bactroban 2% Ointment -] 1 applic TP BID 03/09/18 Lactobacillus Acidophilus [Bacid -] 1 tab GT BID tab 03/12/18 Levofloxacin [Levaquin] 500 mg GT DAILY 05/09/18 Levothyroxine [Synthroid -] 150 mcg GT DAILY@0700 05/09/18 Family Disease History - Family Disease History Family Disease History: CA: Mother, Respiratory: Father (emphysema, alcohol), Other: Father Review of Systems Unable to obtain ROS, reason: unable to obtain Physical Exam Vital Signs: Vital Signs Temperature 99.1 F 05/10/18 09:00 Pulse Rate 85 05/10/18 09:00 Respiratory Rate 16 05/10/18 11:47 Blood Pressure 97/64 05/10/18 09:00 O2 Sat by Pulse Oximetry (%) 100 05/10/18 08:02 Constitutional: Yes: Well Nourished, Other Cardiovascular: Yes: Pulse Irregular Respiratory: Yes: Mechanically Ventilated, Other (on trach) Gastrointestinal: Yes: Normal Bowel Sounds, Soft, Other (peg in place) Renal/: Yes: [place] Present (suprapubic) Musculoskeletal: Yes: WNL Extremities: Yes: WNL Neurological: Yes: Other Labs: CBC, BMP 05/10/18 06:00 05/10/18 06:00 Imaging - Results Chest X-ray: Report Reviewed, Image Reviewed Cat Scan: Report Reviewed, Image Reviewed Assessment/Plan 63 m hx afib, syst chf, ex drug abuse, cardiac arrest with anoxic brain injury and trach, suprapubic catheter, hcv, sent from [place] for erythema near g tube. patient also i think has abscess there erythema of the ge tube site abscess of the g tube site induration of the site resp failure vented plan will continue abx needs the g tube out and the abscess/collection drained rest as per the team
[2018-05-10] MEDS ORDERED: ACETAMINOPHEN 1000 MG/100 ML VIAL (NON FORMULARY) IVPB PRN (12:45)
--- NOTE | 2018-05-10 12:52 | PN ---
Progress Note (short form) - Note Progress Note: Pt examined with GI peg tube has been out in abdominal cavity -- unknown how long Vital Signs - 24 hr 05/09/18 05/09/18 05/09/18 14:22 14:50 15:25 Temperature 99.9 F H Pulse Rate 63 Pulse Rate [ 77 Radial] Respiratory 12 18 14 Rate Blood Pressure 120/70 Blood Pressure 90/57 L [Left Arm] O2 Sat by Pulse 100 100 Oximetry (%) 05/09/18 05/09/18 05/09/18 15:34 16:09 16:30 Temperature Pulse Rate Pulse Rate [ 83 90 Radial] Respiratory 12 14 147 H Rate Blood Pressure Blood Pressure 83/48 L 101/84 [Left Arm] O2 Sat by Pulse 100 100 Oximetry (%) 05/09/18 05/09/18 05/09/18 17:30 20:26 20:30 Temperature Pulse Rate Pulse Rate [ 96 H 92 H Radial] Respiratory 14 21 H 12 Rate Blood Pressure Blood Pressure 119/83 98/58 L [Left Arm] O2 Sat by Pulse 100 100 Oximetry (%) 05/09/18 05/09/18 05/10/18 21:25 23:35 00:20 Temperature 98.4 F Pulse Rate Pulse Rate [ 89 Radial] Respiratory 12 12 12 Rate Blood Pressure Blood Pressure 103/62 [Left Arm] O2 Sat by Pulse 100 100 100 Oximetry (%) 05/10/18 05/10/18 05/10/18 00:51 01:40 03:34 Temperature 98.4 F Pulse Rate Pulse Rate [ 65 Radial] Respiratory 14 12 19 Rate Blood Pressure Blood Pressure 103/70 [Left Arm] O2 Sat by Pulse 100 Oximetry (%) 05/10/18 05/10/18 05/10/18 03:40 06:35 08:02 Temperature 98.5 F Pulse Rate 92 H 80 Pulse Rate [ Radial] Respiratory 18 18 23 H Rate Blood Pressure 107/55 L Blood Pressure [Left Arm] O2 Sat by Pulse 100 100 Oximetry (%) 05/10/18 05/10/18 05/10/18 09:00 10:00 11:47 Temperature 99.1 F Pulse Rate 85 Pulse Rate [ Radial] Respiratory 12 16 Rate Blood Pressure 97/64 Blood Pressure [Left Arm] O2 Sat by Pulse 100 Oximetry (%) Current Medications Generic Name Dose Route Start Last Admin Trade Name Freq PRN Reason Stop Dose Admin Acetaminophen 1,000 mg 05/10/18 12:45 Ofirmev Injection - IVPB Q6H PRN FEVER Albuterol/Ipratropium 1 amp 05/10/18 08:00 05/10/18 08:02 Duoneb - NEB 1 amp RTID JESUS Administration Artificial Tears 1 drop 05/10/18 10:00 Artificial Tears OU QID JESUS Piperacillin Sod/Tazobactam 50 mls @ 100 mls/hr 05/10/18 03:00 05/10/18 10:51 Sod 2.25 gm/ Dextrose IVPB 05/10/18 21:29 100 mls/hr Q6H-IV JESUS Administration Protocol Amino Acids 1,000 mls @ 42 mls/hr 05/10/18 13:00 Clinimix - IV Q12H JESUS Piperacillin Sod/Tazobactam 50 mls @ 100 mls/hr 05/10/18 13:00 Sod 3.375 gm/ Dextrose IVPB Q8H-IV JESUS Protocol Levetiracetam 500 mg 05/10/18 10:00 05/10/18 12:14 Keppra Injection - IVPB 500 mg BID [facility] Administration Levothyroxine Sodium 175 mcg 05/10/18 12:45 Synthroid Injection - IVPUSH DAILY [facility] Metoprolol Tartrate 5 mg 05/10/18 12:46 Lopressor Injection - IVPUSH Q6H [facility] Laboratory Results - last 24 hr 05/09/18 05/09/18 05/09/18 15:34 15:34 15:50 WBC 8.2 RBC 2.48 L Hgb 7.5 L Hct 22.5 L MCV 91.0 MCH 30.1 MCHC 33.1 RDW 17.0 H Plt Count 294 D MPV 8.5 D Absolute Neuts (auto) 5.8 Neutrophils % 70.3 Lymphocytes % 14.8 Monocytes % 4.9 Eosinophils % 9.3 H Basophils % 0.7 Nucleated RBC % 0 PT with INR 15.10 H INR 1.28 H Sodium 139 Potassium 4.4 Chloride 104 Carbon Dioxide 30 Anion Gap 5 L BUN 23 H Creatinine 0.6 Creat Clearance w eGFR > 60 Random Glucose 91 Lactic Acid Calcium 7.8 L Total Bilirubin < 0.1 L AST 33 ALT 26 Alkaline Phosphatase 60 B-Natriuretic Peptide Total Protein 7.0 Albumin 2.0 L TSH Urine Color Urine Appearance Urine pH Ur Specific [place] Urine Protein Urine Glucose (UA) Urine Ketones Urine Blood Urine Nitrite Urine Bilirubin Urine Urobilinogen Ur Leukocyte Esterase Urine WBC (Auto) Urine RBC (Auto) Ur Epithelial Cells Urine Mucus Digoxin Blood Type Antibody Screen Crossmatch 05/09/18 05/09/18 05/09/18 15:50 19:30 19:30 WBC RBC Hgb Hct MCV MCH MCHC RDW Plt Count MPV Absolute Neuts (auto) Neutrophils % Lymphocytes % Monocytes % Eosinophils % Basophils % Nucleated RBC % PT with INR INR Sodium Potassium Chloride Carbon Dioxide Anion Gap BUN Creatinine Creat Clearance w eGFR Random Glucose Lactic Acid 1.3 Calcium Total Bilirubin AST ALT Alkaline Phosphatase B-Natriuretic Peptide Total Protein Albumin TSH Urine Color Yellow Urine Appearance Slcloudy Urine pH 7.0 Ur Specific [place] 1.023 Urine Protein 1+ H Urine Glucose (UA) Negative Urine Ketones Negative Urine Blood 1+ H Urine Nitrite Negative Urine Bilirubin Negative Urine Urobilinogen Negative Ur Leukocyte Esterase 1+ H Urine WBC (Auto) 20 Urine RBC (Auto) 160 Ur Epithelial Cells Rare Urine Mucus Rare Digoxin Blood Type A POSITIVE Antibody Screen Negative Crossmatch See Detail 05/10/18 05/10/18 06:00 06:00 WBC 6.8 RBC 2.76 L Hgb 8.3 L Hct 25.3 L MCV 91.8 MCH 30.1 MCHC 32.8 RDW 16.8 H Plt Count 276 MPV 8.9 Absolute Neuts (auto) 4.6 Neutrophils % 68.2 Lymphocytes % 14.1 Monocytes % 6.5 Eosinophils % 10.2 H Basophils % 1.0 Nucleated RBC % 0 PT with INR INR Sodium 140 Potassium 4.0 Chloride 102 Carbon Dioxide 31 Anion Gap 8 BUN 21 H Creatinine 0.8 Creat Clearance w eGFR > 60 Random Glucose 95 Lactic Acid Calcium 8.5 Total Bilirubin AST ALT Alkaline Phosphatase B-Natriuretic Peptide 2335.4 H Total Protein Albumin TSH 69.20 H D Urine Color Urine Appearance Urine pH Ur Specific [place] Urine Protein Urine Glucose (UA) Urine Ketones Urine Blood Urine Nitrite Urine Bilirubin Urine Urobilinogen Ur Leukocyte Esterase Urine WBC (Auto) Urine RBC (Auto) Ur Epithelial Cells Urine Mucus Digoxin 1.52 Blood Type Antibody Screen Crossmatch S1 S2 Irregular Lungs decreased trach- vent Abd-- soft, swelling around peg site- pus+ no edema PLAN spoke with ID and GI Surgical evaluation-- will need I and d of abscess NPO start Clinimix Start meds as iv may need peg placed in a new site after the original site is healed Cardiology eval noted Hold of lovenox /AC - possible hematoma or infected hematoma? iv antibiotics Problem List - Problems (1) Gastrostomy tube dysfunction Code(s): K94.23 - GASTROSTOMY MALFUNCTION (2) Hepatitis C carrier Code(s): Z22.52 - (3) Mitral valve prolapse Code(s): I34.1 - NONRHEUMATIC MITRAL (VALVE) PROLAPSE (4) Anoxic brain injury Code(s): G93.1 - ANOXIC BRAIN DAMAGE, NOT ELSEWHERE CLASSIFIED (5) Atrial fibrillation Code(s): I48.91 - UNSPECIFIED ATRIAL FIBRILLATION Qualifiers: Atrial fibrillation type: persistent Qualified Code(s): I48.1 - Persistent atrial fibrillation (6) Chronic respiratory failure Code(s): J96.10 - CHRONIC RESPIRATORY FAILURE, UNSP W HYPOXIA OR HYPERCAPNIA Qualifiers: Respiratory failure complication: unspecified whether with hypoxia or hypercapnia Qualified Code(s): J96.10 - Chronic respiratory failure, unspecified whether with hypoxia or hypercapnia (7) Quadriplegia, functional Code(s): R53.2 - FUNCTIONAL QUADRIPLEGIA
[2018-05-10] MEDS ORDERED: ENOXAPARIN NA (PORCINE) 80 MG/0.8 ML DISP.SYRIN SQ SCH (13:00)
[2018-05-10] MEDS ORDERED: LEVOTHYROXINE SODIUM 100 MCG VIAL IVPUSH SCH (14:30)
[2018-05-10] MEDS ORDERED: PT OWN MED DRAWER 7, Y5N ONE (14:43)
[2018-05-10] MEDS ORDERED: METOPROLOL TARTRATE 5 MG/5 ML VIAL IVPUSH SCH (15:00)
[2018-05-10] MEDS: PIPERACILLIN/TAZOB 3.375 GM 3.375 GM in DEXTROSE 5%-WATER - 50 ML IVPB SCH ×2 (15:04→18:18)
[2018-05-10] MEDS: AMINO ACIDS 4.25%/D5W 1,000 ML IV SCH (15:49)
--- NOTE | 2018-05-10 16:33 | CONSULT ---
Consult Consult Specialty:: General Surgery Referred by:: Dr. Felisa Troy Reason for Consultation:: dislodged PEG - History of Present Illness Chief Complaint: pt nonresponsive - G tube site redness, hardness History of Present Illness: 63yoM with HTN, afib on eliquis, COPD, hep C, hypothyroidism, CAD s/p [place] with anoxic brain injury almost a year ago, s/p trach, PEG (last June or July at [facility] per niece), suprapubic cystostomy; sent in from [facility] for redness and firmness around PEG site concerning for cellulitis. WBC is normal, he is nonresponsive, contracted, and essentially in vegetative state, responding only to painful stimuli at baseline. CT in ER showed mushroom bolster in subcutaneous tissue/muscle layer with collection beneath it suspicious for hematoma and/or abscess. Tube has not been used at hospital, unclear when last attempted use at [place] was. TSH is very high, unclear when last eliquis dose was received. Surgery was asked to evaluate. I have also asked GI to evaluate. Pt is seen and examined with Dr. Akilah Dominguez of GI. He is seen and examined in bed, unresponsive, with eyes partly open, responsive to painful stimuli only. Arms are contracted and internally rotated. Legs/hips somewhat externally rotated. PEG is plugged and not in use; he is on Clinimix and antibiotics have been started. - History Source History Provided By: Family Member (niece by phone, surrogate), Medical Record, Caregiver (Dr. 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 per niece - last end May w/ anoxic brain injury), Mitral Insufficiency (? rheumatic) Pulmonary: Yes: COPD (ventilator dependent with tracheostomy), Other (trach/ vent dependent) Gastrointestinal: Yes: Constipation, GERD, Other (Feeding gastrostomy (PEG) tube ) Hepatobiliary: Yes: Cholelithiasis, Hepatitis C (by other's history) Renal/: Yes: Neurogenic Bladder (with suprapubic cystostomy) Infectious Disease: Yes: Other (genital condylomata, ??typhoid fever) Psych: Yes: Addictions (alcoholism) ENT: Yes: Other (dry eye syndrome) Endocrine: Yes: Hypothyroidism - Past Surgical History Past Surgical History: Yes: Upper Endoscopy Additional Surgical History: tracheostomy, suprapubic cystostomy, PEG - Alcohol/Substance Use Hx Alcohol Use: Yes (in past only) History of Substance Use: reports: Heroin (in past only) - Smoking History Smoking history: Former smoker Have you smoked in the past 12 months: No If you are a former smoker, when did you quit?: 9 years ago - Social History Usual Living Arrangement: Long-Term ADL: Support Services History of Recent Travel: No Home Medications - Allergies Allergies/Adverse Reactions: Allergies Allergy/AdvReac Type Severity Reaction Status Date / Time No Known Allergies Allergy Verified 05/09/18 14:24 - Home Medications Home Medications: Ambulatory Orders Acetaminophen [Tylenol .Extra-Strength -] 500 mg GT Q6H PRN 07/31/17 Hypromellose 0.5% Opth Soln [Artificial Tears] 1 drop OU QID 07/31/17 Sennosides [Senna] 10 ml GT HS 07/31/17 Metoprolol Tartrate [Lopressor -] 50 mg GT BID #60 tablet 08/10/17 Amiodarone HCl [Cordarone -] 200 mg GT DAILY 10/24/17 Apixaban [Eliquis -] 5 mg GT BID 10/24/17 Collagenase Clostridium Hist. [Santyl -] 1 applic TP TID PRN 10/24/17 Digoxin [Lanoxin -] 0.25 mg GT DAILY 10/24/17 Furosemide [Lasix -] 40 mg GT DAILY 10/24/17 Potassium Chloride [Potassium Chloride Oral Liquid] 20 meq GT DAILY 10/24/17 Zinc Oxide 20% Topical Oint 454 gm NR BID PRN 10/24/17 levETIRAcetam [Keppra Oral Solution -] 500 mg GT BID #1 bottle 01/09/18 Albuterol 2.5/Ipratropium 0.5 [Duoneb -] 1 amp NEB TID 03/09/18 Ergocalciferol (Vitamin D2) [Calcidol] 6.25 ml PO WEEKLY 03/09/18 Mupirocin Ointment [Bactroban 2% Ointment -] 1 applic TP BID 03/09/18 Lactobacillus Acidophilus [Bacid -] 1 tab GT BID tab 03/12/18 Levofloxacin [Levaquin] 500 mg GT DAILY 05/09/18 Levothyroxine [Synthroid -] 150 mcg GT DAILY@0700 05/09/18 Family Disease History - Family Disease History Family Disease History: CA: Mother, Respiratory: Father (emphysema, alcohol), Other: Father Review of Systems Unable to obtain ROS, reason: pt unresponsive Physical Exam Vital Signs: Vital Signs Temperature 99.7 F H 05/10/18 14:19 Pulse Rate 109 H 05/10/18 15:11 Respiratory Rate 20 05/10/18 14:19 Blood Pressure 133/88 05/10/18 14:19 O2 Sat by Pulse Oximetry (%) 100 05/10/18 10:00 Constitutional: Yes: Well Nourished, No Distress, Calm Eyes: Yes: Conjunctiva Clear, Other (eyes partly open, does not focus) HENT: Yes: Atraumatic, Normocephalic Neck: Yes: Supple, Other (trach present - vented) Cardiovascular: Yes: Pulse Irregular (irregularly). No: Bradycardia, Tachycardia Respiratory: Yes: Regular, Intubated (via tracheostomy), Mechanically Ventilated , Rhonchi (scattered) Gastrointestinal: Yes: Normal Bowel Sounds, Soft, Palpable Mass (under PEG site - PEG tube removed by Dr. Dominguez at bedside with evacuation of small amount of tube feeds and bloody drainage (pt uncomfortable with pull, but settled after )), Tenderness (possibly mild near PEG site, difficult to elicit/appreciate secondary to pt's condition), Other (PEG tube site with granulation tissue around half of site, tube at 1-2cm at skin level, see below). No: Distention ...Rectal Exam: Yes: Deferred Renal/: Yes: Boucher Present (suprapubic cystostomy), Hematuria (yellow urine in bag), Other (enlarged, verrucous phallus) Musculoskeletal: Yes: Joint Stiffness (upper extremities nearly rigid). No: Joint Swelling Extremities: Yes: External Rotation (lower extremities), Internal Rotation ( upper extremities). No: Cool, Cyanosis Edema: Yes (some pedal) Edema: LLE: Trace, RLE: Trace Peripheral Pulses WNL: Yes Integumentary: Yes: Erythema (mild local at PEG site). No: Jaundice, Rash Wound/Incision: Yes: Draining (some tube feeds and more bloody drainage evacuated from PEG site after tube removal; cotton-tipped applicator used to gently probe cavity with no further content noted; applicator slipped easily straight down, believed to be into stomach), Other (16Fr Boucher catheter placed through PEG tract into stomach with aspiration of few ml clear/mucoid secretions ; balloon inflated, but secured with no tension, balloon below level of stomach wall, by taping catheter onto skin, and end plugged to avoid leakage) Neurological: Yes: Unresponsive (at baseline - responsive to painful stimuli only). No: Alert (eyes open, but not awake/alert) Labs: CBC, BMP 05/10/18 06:00 05/10/18 06:00 CMP Sodium 140 mmol/L (136-145) 05/10/18 06:00 Potassium 4.0 mmol/L (3.5-5.1) 05/10/18 06:00 Chloride 102 mmol/L (98-107) 05/10/18 06:00 Carbon Dioxide 31 mmol/L (21-32) 05/10/18 06:00 Anion Gap 8 MMOL/L (8-16) 05/10/18 06:00 BUN 21 mg/dL (7-18) H 05/10/18 06:00 Creatinine 0.8 mg/dL (0.55-1.3) 05/10/18 06:00 Creat Clearance w eGFR > 60 (>60) 05/10/18 06:00 Random Glucose 95 mg/dL (74-106) 05/10/18 06:00 Lactic Acid 1.3 mmol/L (0.4-2.0) 05/09/18 15:50 Calcium 8.5 mg/dL (8.5-10.1) 05/10/18 06:00 Total Bilirubin < 0.1 mg/dL (0.2-1) L 05/09/18 15:50 AST 33 U/L (15-37) 05/09/18 15:50 ALT 26 U/L (13-61) 05/09/18 15:50 Alkaline Phosphatase 60 U/L (45-117) 05/09/18 15:50 B-Natriuretic Peptide 2335.4 pg/ml (5-125) H 05/10/18 06:00 Total Protein 7.0 g/dl (6.4-8.2) 05/09/18 15:50 Albumin 2.0 g/dl (3.4-5.0) L 05/09/18 15:50 TSH 69.20 uIU/ml (0.358-3.74) H D 05/10/18 06:00 INR, PTT INR 1.28 (0.83-1.09) H 05/09/18 15:34 Urine Test Results Urine Color Yellow 05/09/18 19:30 Urine Appearance Slcloudy 05/09/18 19:30 Urine pH 7.0 (5.0-8.0) 05/09/18 19:30 Ur Specific [place] 1.023 (1.010-1.035) 05/09/18 19:30 Urine Protein 1+ (NEGATIVE) H 05/09/18 19:30 Urine Glucose (UA) Negative (NEGATIVE) 05/09/18 19:30 Urine Ketones Negative (NEGATIVE) 05/09/18 19:30 Urine Blood 1+ (NEGATIVE) H 05/09/18 19:30 Urine Nitrite Negative (NEGATIVE) 05/09/18 19:30 Urine Bilirubin Negative (<2.0 mg/dL) 05/09/18 19:30 Ur Leukocyte Esterase 1+ (NEGATIVE) H 05/09/18 19:30 Ur Epithelial Cells Rare /HPF (FEW) 05/09/18 19:30 Urine Mucus Rare 05/09/18 19:30 Microbiology 05/09/18 15:34 Blood Culture - Preliminary Blood - Peripheral Venous NO GROWTH OBTAINED AFTER 24 HOURS, INCUBATION TO CONTINUE FOR 4 DAYS. 05/09/18 15:34 Blood Culture - Preliminary Blood - Peripheral Venous NO GROWTH OBTAINED AFTER 24 HOURS, INCUBATION TO CONTINUE FOR 4 DAYS. Imaging - Results X-ray: Pending Cat Scan: Report Reviewed, Image Reviewed (images reviewed - bolster of PEG tube not in stomach, sitting in subcutaneous tissues underneath skin with collection of hyperdense fluid or material mostly underneath, no free air or free peritoneal fluid) Problem List - Problems (1) Dislodged gastrostomy tube Assessment/Plan: tube cannot be readvanced into stomach removed at bedside by/with Dr. Dominguez tract evacuated of some old tube feeds and bloody drainage 16Fr Boucher reinserted into tract, believed to be in stomach will obtain portable XR with contrast via Boucher to confirm placement TUBE SHOULD NOT BE USED FOR ANY FEEDS OR MEDS at this time continue antibiotics per ID may consider reimaging after weekend to reassess if any residual collection present if tract is intact, may be able to consider balloon-type gastrostomy tube for future spoke with pt's niece by phone she will visit Monday would continue Clinimix for nutrition at this time ALL MEDS should be in IV FORM Code(s): Z43.1 - ENCOUNTER FOR ATTENTION TO GASTROSTOMY (2) Gastrostomy tube dysfunction Code(s): K94.23 - GASTROSTOMY MALFUNCTION (3) Anoxic brain injury Code(s): G93.1 - ANOXIC BRAIN DAMAGE, NOT ELSEWHERE CLASSIFIED (4) Atrial fibrillation Code(s): I48.91 - UNSPECIFIED ATRIAL FIBRILLATION Qualifiers: Atrial fibrillation type: persistent Qualified Code(s): I48.1 - Persistent atrial fibrillation (5) Quadriplegia, functional Code(s): R53.2 - FUNCTIONAL QUADRIPLEGIA (6) Chronic respiratory failure Assessment/Plan: trach/vent dependent Code(s): J96.10 - CHRONIC RESPIRATORY FAILURE, UNSP W HYPOXIA OR HYPERCAPNIA Qualifiers: Respiratory failure complication: unspecified whether with hypoxia or hypercapnia Qualified Code(s): J96.10 - Chronic respiratory failure, unspecified whether with hypoxia or hypercapnia
--- NOTE | 2018-05-10 17:00 | CON.GI ---
Consult Consult Specialty:: GI Referred by:: Dr. Luann Banuelos Reason for Consultation:: Malfunctioning G-Tube - History of Present Illness Chief Complaint: Patient non-verbal History of Present Illness: Patient transferred from OR for evaluation of malfunctioning G-Tube. S/P Trach/ PEG -08/25 He was hypotensive in the ED. CT Scan revealed the internal bolster of the G-Tube within the abdominal wall with associated fluid collection within abdominal wall. 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 rheumatic) Pulmonary: Yes: COPD (ventilator dependent with tracheostomy) Gastrointestinal: Yes: Constipation, GERD, Other (Feeding gastrostomy tube) Hepatobiliary: Yes: Cholelithiasis, Hepatitis C (by other's history) Renal/: Yes: Neurogenic Bladder (with suprapubic cystostomy) Infectious Disease: Yes: Other (genital condylomata, ? typhoid fever) Psych: Yes: Addictions (alcoholism) ENT: Yes: Other (dry eye syndrome) Endocrine: Yes: Hypothyroidism - Alcohol/Substance Use Hx Alcohol Use: Yes History of Substance Use: reports: Heroin - Smoking History Smoking history: Unknown if ever smoked Have you smoked in the past 12 months: No If you are a former smoker, when did you quit?: 9 years ago - Social History ADL: Support Services History of Recent Travel: No Home Medications - Allergies Allergies/Adverse Reactions: Allergies Allergy/AdvReac Type Severity Reaction Status Date / Time No Known Allergies Allergy Verified 05/09/18 14:24 - Home Medications Home Medications: Ambulatory Orders Acetaminophen [Tylenol .Extra-Strength -] 500 mg GT Q6H PRN 07/31/17 Hypromellose 0.5% Opth Soln [Artificial Tears] 1 drop OU QID 07/31/17 Sennosides [Senna] 10 ml GT HS 07/31/17 Metoprolol Tartrate [Lopressor -] 50 mg GT BID #60 tablet 08/10/17 Amiodarone HCl [Cordarone -] 200 mg GT DAILY 10/24/17 Apixaban [Eliquis -] 5 mg GT BID 10/24/17 Collagenase Clostridium Hist. [Santyl -] 1 applic TP TID PRN 10/24/17 Digoxin [Lanoxin -] 0.25 mg GT DAILY 10/24/17 Furosemide [Lasix -] 40 mg GT DAILY 10/24/17 Potassium Chloride [Potassium Chloride Oral Liquid] 20 meq GT DAILY 10/24/17 Zinc Oxide 20% Topical Oint 454 gm NR BID PRN 10/24/17 levETIRAcetam [Keppra Oral Solution -] 500 mg GT BID #1 bottle 01/09/18 Albuterol 2.5/Ipratropium 0.5 [Duoneb -] 1 amp NEB TID 03/09/18 Ergocalciferol (Vitamin D2) [Calcidol] 6.25 ml PO WEEKLY 03/09/18 Mupirocin Ointment [Bactroban 2% Ointment -] 1 applic TP BID 03/09/18 Lactobacillus Acidophilus [Bacid -] 1 tab GT BID tab 03/12/18 Levofloxacin [Levaquin] 500 mg GT DAILY 05/09/18 Levothyroxine [Synthroid -] 150 mcg GT DAILY@0700 05/09/18 Family Disease History - Family Disease History Family Disease History: CA: Mother, Respiratory: Father (emphysema, alcohol), Other: Father Review of Systems Unable to obtain ROS, reason: Patient non-verbal Physical Exam-GI Vital Signs: Vital Signs Temperature 99.7 F H 05/10/18 14:19 Pulse Rate 109 H 05/10/18 15:11 Respiratory Rate 20 05/10/18 14:19 Blood Pressure 133/88 05/10/18 14:19 O2 Sat by Pulse Oximetry (%) 100 05/10/18 10:00 Constitutional: Yes: Calm Eyes: No: Sclera Icterus Cardiovascular: Yes: Tachycardia, Pulse Irregular Respiratory: Yes: Diminished (at bases with poor insp effort) Gastrointestinal Inspection: Yes: Other (G-Tube in left upper abdomen. there is granulation tissue along the cephalad border of the stoma. There is periPEG erythema and induration with purulent fluid expressed. the G-Tube was at the 1cm myah at the level of the abdominal wall). No: Distention, Scars ...Auscultate: Yes: Normoactive Bowel Sounds Edema: No (No LE edema) Neurological: Yes: Other (Awake) Labs: CBC, BMP 05/10/18 06:00 05/10/18 06:00 INR, PTT INR 1.28 (0.83-1.09) H 05/09/18 15:34 Imaging - Results Cat Scan: Report Reviewed, Image Reviewed Assessment/Plan Dislodged G-Tube with internal bolster in the anterior abdominal wall: With Dr. Corado of surgery at bedside, I removed the G-tube through pull technique with amount of resistance: what appeared to be tube feeds and seropurulent fluid was expreseed from the stoma. a cotton swab applicator was used to probe the stoma and it was able to be advanced without resistance further into the stoma. A 16fr. sevilla catheter was advanced into the stoma without resistance. and the balloon was inflated. Ordered G-tube to assess if sevilla is within the gastric lumen Per surgery, to allow for further drainage through the stoma opeing around the sevilla catheter IV Abx. ID following NPO If the stomal site improves through conservative measures, may be able to place replacement PEG through existing stoma at some point. If persistent abscess, may need surgical intervention and new G-Tube placement at a clean site.
[2018-05-10] MEDS ORDERED: PIPERACILLIN/TAZOBACTAM 3.375 GM VIAL IVPB ONE (18:14)
[2018-05-10] MEDS: LEVOTHYROXINE SODIUM 100 MCG VIAL IVPUSH SCH (20:02)
[2018-05-10] MEDS: METOPROLOL TARTRATE 5 MG/5 ML VIAL IVPB SCH (21:54)
[2018-05-11] MEDS ORDERED: DEXTROSE 5%-WATER - 50 ML IVPB ONE ×3 (01:47→17:22)
[2018-05-11] MEDS ORDERED: PIPERACILLIN/TAZOBACTAM 3.375 GM VIAL IVPB ONE ×3 (01:47→17:22)
[2018-05-11] MEDS: METOPROLOL TARTRATE 5 MG/5 ML VIAL IVPB SCH ×4 (02:12→21:32)
[2018-05-11] MEDS: PIPERACILLIN/TAZOB 3.375 GM 3.375 GM in DEXTROSE 5%-WATER - 50 ML IVPB SCH ×3 (02:12→17:25)
[2018-05-11] MEDS ORDERED: PIPERACILLIN/TAZOB 2.25 GM 2.25 GM in DEXTROSE 5%-WATER - 50 ML IVPB SCH (03:00)
[2018-05-11] MEDS: LEVOTHYROXINE SODIUM 100 MCG VIAL IVPUSH SCH (06:13)
[2018-05-11] MEDS ORDERED: LEVOTHYROXINE SODIUM 100 MCG VIAL IVPUSH SCH (07:00)
[2018-05-11 07:50] LABS: HEMATOCRIT 23.8 % (35.4-49); HEMOGLOBIN 7.8 GM/dL (11.7-16.9); MCH 30.2 pg (25.7-33.7); MCHC 32.9 g/dl (32.0-35.9); MEAN CELL VOLUME 91.9 fl (80-96); MEAN PLT VOLUME 8.4 fl (7.5-11.1); PLATELET COUNT 272 K/MM3 (134-434); RBC 2.59 M/mm3 (4.00-5.60); RDW 17.4 % (11.9-15.9); WHITE BLOOD COUNT 6.5 K/mm3 (4.0-10.0)
[2018-05-11 08:16] LABS: ALBUMIN 2.2 g/dl (3.4-5.0); ALK PHOS 67 U/L (45-117); ANION GAP 5 MMOL/L (8-16); BILIRUBIN,TOTAL 0.2 mg/dL (0.2-1); BLOOD UREA NITROGEN 19 mg/dL (7-18); CHLORIDE 103 mmol/L (98-107); CO2 31 mmol/L (21-32); CREATININE 0.7 mg/dL (0.55-1.3); GLUCOSE,RANDOM 100 mg/dL (74-106); POTASSIUM 3.7 mmol/L (3.5-5.1); SGOT/AST 16 U/L (15-37); SGPT/ALT 18 U/L (13-61); SODIUM 139 mmol/L (136-145); TOT PROT 7.2 g/dl (6.4-8.2)
[2018-05-11] MEDS: ALBUTEROL SO4 2.5/IPRATROPIUM 0.5 INH SOL 3 ML VIAL.NEB. NEB SCH ×3 (08:37→21:00)
--- NOTE | 2018-05-11 10:48 | PN ---
GI Progress Note Subjective: No acute events reported overnight - Objective Vital Signs: Vital Signs Temperature 98.2 F 05/11/18 06:00 Pulse Rate 82 05/11/18 06:00 Respiratory Rate 18 05/11/18 10:15 Blood Pressure 100/60 05/11/18 06:00 O2 Sat by Pulse Oximetry (%) 100 05/10/18 21:48 Constitutional: Calm Eyes: No: Sclera Icterus Cardiovascular: Yes: Pulse Irregular Respiratory: Yes: Diminished (at bases, poor insp effort) Gastrointestinal Inspection: Yes: Other (Previously described G-Tube stoma in left upper abdomen. sevilla in place. indurated lateral and medial borders of the stoma site. Improved erythema. Irrigated stoma with 10cc saline flush. Unable to further express tube feeds / pus from the stoma site.) ...Auscultate: Yes: Normoactive Bowel Sounds Extremities: Yes: Other (Decorticate posturing of UE B/L) Edema: No Neurological: Yes: Other (eyes open spontaneously) Labs: CBC, BMP 05/11/18 06:00 05/11/18 06:00 INR, PTT INR 1.28 (0.83-1.09) H 05/09/18 15:34 Problem List - Problems (1) Dislodged gastrostomy tube Assessment/Plan: Attempting to keep existing site through conservative measures COntinue IV Abx NPO IV hydration / clinimix for short term nutritional support IV Abx per ID Surgery following Repeat CT scan of abdomen with IV contrast Monday Code(s): Z43.1 - ENCOUNTER FOR ATTENTION TO GASTROSTOMY
[2018-05-11] MEDS: levETIRAcetam 500 MG/5 ML INJECTION VIAL IVPB SCH ×2 (11:05→21:33)
[2018-05-11] MEDS: ARTIFICIAL TEARS (POLYVINYL ALCOHOL) OPTH DROPS OU SCH ×4 (11:15→21:34)
--- NOTE | 2018-05-11 11:31 | PN ---
Progress Note (short form) - Note Progress Note: pt seen/ examined chart reviewed awake no distress. Vital Signs Temp 99.7 F H 05/11/18 11:19 Pulse 89 05/11/18 11:19 Resp 20 05/11/18 11:19 BP 114/67 05/11/18 11:19 Pulse Ox 100 05/10/18 21:48 Intake & Output 05/10/18 05/10/18 05/11/18 11:59 23:59 11:59 Intake Total 50 360 704 Output Total 470 600 300 Balance -420 -240 404 Weight 160 lb Intake: IV 160 504 clinimax 160 504 IVPB 50 200 200 Oral 0 Output: Urine 470 600 300 Boucher 470 600 300 Other: Voiding Method Indwelling Catheter Diaper Bowel Movement No Height 5 ft 10 in Body Mass Index (BMI) 22.9 Weight Measurement Method Patient Lift Scale Active Medications Acetaminophen (Ofirmev Injection -) 1,000 mg IVPB Q6H PRN PRN Reason: FEVER Albuterol/Ipratropium (Duoneb -) 1 amp NEB RTID [facility] Last Admin: 05/11/18 08:37 Dose: 1 amp Artificial Tears (Artificial Tears) 1 drop OU QID [facility] Last Admin: 05/11/18 11:15 Dose: 1 drop Amino Acids (Clinimix -) 1,000 mls @ 42 mls/hr IV Q24H [facility] Last Admin: 05/10/18 15:49 Dose: 42 mls/hr Piperacillin Sod/Tazobactam (Sod 3.375 gm/ Dextrose) 50 mls @ 100 mls/hr IVPB Q8H-IV [facility]; Protocol Last Admin: 05/11/18 11:05 Dose: 100 mls/hr Levetiracetam (Keppra Injection -) 500 mg IVPB BID [facility] Last Admin: 05/11/18 11:05 Dose: 500 mg Levothyroxine Sodium (Synthroid Injection -) 130 mcg IVPUSH DAILY@0700 [facility] Last Admin: 05/11/18 06:13 Dose: 130 mcg Metoprolol Tartrate (Lopressor Injection -) 5 mg IVPB Q6H-IV [facility] Last Admin: 05/11/18 11:05 Dose: 5 mg CBC, BMP 05/11/18 06:00 05/11/18 06:00 Microbiology 05/09/18 15:34 Urine Culture - Final Urine - Urine Clean Catch NO GROWTH OBTAINED 05/09/18 15:34 Blood Culture - Preliminary Blood - Peripheral Venous NO GROWTH OBTAINED AFTER 24 HOURS, INCUBATION TO CONTINUE FOR 4 DAYS. 05/09/18 15:34 Blood Culture - Preliminary Blood - Peripheral Venous NO GROWTH OBTAINED AFTER 24 HOURS, INCUBATION TO CONTINUE FOR 4 DAYS. Physical Exam awake. no distress S1 S2 Irregular Lungs decreased trach- vent Abd-- soft, swelling around peg site- pus+ no edema PLAN Discussed with gi/ surgery NPO Clinimix Hold of lovenox /AC - possible hematoma or infected hematoma? iv antibiotics continue present care will follow. Problem List - Problems (1) Gastrostomy tube dysfunction Code(s): K94.23 - GASTROSTOMY MALFUNCTION (2) Hepatitis C carrier Code(s): Z22.52 - (3) Mitral valve prolapse Code(s): I34.1 - NONRHEUMATIC MITRAL (VALVE) PROLAPSE (4) Anoxic brain injury Code(s): G93.1 - ANOXIC BRAIN DAMAGE, NOT ELSEWHERE CLASSIFIED (5) Atrial fibrillation Code(s): I48.91 - UNSPECIFIED ATRIAL FIBRILLATION Qualifiers: Atrial fibrillation type: persistent Qualified Code(s): I48.1 - Persistent atrial fibrillation (6) Chronic respiratory failure Code(s): J96.10 - CHRONIC RESPIRATORY FAILURE, UNSP W HYPOXIA OR HYPERCAPNIA Qualifiers: Respiratory failure complication: unspecified whether with hypoxia or hypercapnia Qualified Code(s): J96.10 - Chronic respiratory failure, unspecified whether with hypoxia or hypercapnia (7) Quadriplegia, functional Code(s): R53.2 - FUNCTIONAL QUADRIPLEGIA
--- NOTE | 2018-05-11 12:33 | PN ---
Progress Note (short form) - Note Progress Note: s: non communicative o: Vital Signs Period Temp Pulse Resp BP Sys/Bhardwaj Pulse Ox Last 24 Hr 98.1 F-99.9 F 76-109 12-22 100-133/55-88 98-100 nad no jvd rr, irreg s1s2 no mrg cta bl ant, trached abd nd pos bs no jaundice diaphoresis no le e/c/c non communicative Current Medications Generic Name Dose Route Start Last Admin Trade Name Freq PRN Reason Stop Dose Admin Acetaminophen 1,000 mg 05/10/18 12:45 Ofirmev Injection - IVPB Q6H PRN FEVER Albuterol/Ipratropium 1 amp 05/10/18 08:00 05/11/18 08:37 Duoneb - NEB 1 amp RTID [facility] Administration Artificial Tears 1 drop 05/10/18 10:00 05/11/18 11:15 Artificial Tears OU 1 drop QID [facility] Administration Amino Acids 1,000 mls @ 42 mls/hr 05/10/18 14:30 05/10/18 15:49 Clinimix - IV 42 mls/hr Q24H [facility] Administration Piperacillin Sod/Tazobactam 50 mls @ 100 mls/hr 05/10/18 13:00 05/11/18 11:05 Sod 3.375 gm/ Dextrose IVPB 100 mls/hr Q8H-IV [facility] Administration Protocol Levetiracetam 500 mg 05/10/18 10:00 05/11/18 11:05 Keppra Injection - IVPB 500 mg BID [facility] Administration Levothyroxine Sodium 130 mcg 05/10/18 17:15 05/11/18 06:13 Synthroid Injection - IVPUSH 130 mcg DAILY@0700 [facility] Administration Metoprolol Tartrate 5 mg 05/10/18 15:08 05/11/18 11:05 Lopressor Injection - IVPB 5 mg Q6H-IV [facility] Administration CBC, BMP 05/11/18 06:00 05/11/18 06:00 cxr: mild chf, r infiltrate ecg: afib, rate ok, no ischemic changes echo 08/2017: mod-sev dec lvef, global hk, nl rv, no sig valve path a/p: 63 m hx afib, syst chf, ex drug abuse, cardiac arrest with anoxic brain injury and trach, suprapubic catheter, hcv, sent from [facility] for erythema near g tube. malfunctioning g-tube: -imaging shows g tube in abd wall, surgery and GI following -?hematoma near site so AC on hold for now afib: -rate ok, cont iv bb prn until g tube working -at [facility] on amio 200, lopressor 50 bid, and dig (level ok here). resume when able to take po -ac on hold 2/2 hematoma near g-tube site chronic syst chf: -stable, resume po lasix when able to take pills -for now can give iv lasix prn hypothyroid: -tsh elevated, management per pmd
--- NOTE | 2018-05-11 13:34 | PN ---
Progress Note, Physician History of Present Illness: stable feeding tube removed seems there was pus there - Current Medication List Current Medications: Active Medications Acetaminophen (Ofirmev Injection -) 1,000 mg IVPB Q6H PRN PRN Reason: FEVER Albuterol/Ipratropium (Duoneb -) 1 amp NEB RTID [facility] Last Admin: 05/11/18 08:37 Dose: 1 amp Artificial Tears (Artificial Tears) 1 drop OU QID [facility] Last Admin: 05/11/18 11:15 Dose: 1 drop Amino Acids (Clinimix -) 1,000 mls @ 42 mls/hr IV Q24H [facility] Last Admin: 05/10/18 15:49 Dose: 42 mls/hr Piperacillin Sod/Tazobactam (Sod 3.375 gm/ Dextrose) 50 mls @ 100 mls/hr IVPB Q8H-IV [facility]; Protocol Last Admin: 05/11/18 11:05 Dose: 100 mls/hr Levetiracetam (Keppra Injection -) 500 mg IVPB BID [facility] Last Admin: 05/11/18 11:05 Dose: 500 mg Levothyroxine Sodium (Synthroid Injection -) 130 mcg IVPUSH DAILY@0700 [facility] Last Admin: 05/11/18 06:13 Dose: 130 mcg Metoprolol Tartrate (Lopressor Injection -) 5 mg IVPB Q6H-IV [facility] Last Admin: 05/11/18 11:05 Dose: 5 mg - Objective Vital Signs: Vital Signs Temperature 99.7 F H 05/11/18 11:19 Pulse Rate 89 05/11/18 11:19 Respiratory Rate 20 05/11/18 11:19 Blood Pressure 114/67 05/11/18 11:19 O2 Sat by Pulse Oximetry (%) 100 05/10/18 21:48 Constitutional: Yes: No Distress, Calm Cardiovascular: Yes: Regular Rate and Rhythm Respiratory: Yes: Mechanically Ventilated, Other (trach) Gastrointestinal: Yes: Normal Bowel Sounds, Soft Wound/Incision: Yes: Dressing Dry and Intact Neurological: Yes: Other Labs: CBC, BMP 05/11/18 06:00 05/11/18 06:00 INR, PTT INR 1.28 (0.83-1.09) H 05/09/18 15:34 Assessment/Plan 63 m hx afib, syst chf, ex drug abuse, cardiac arrest with anoxic brain injury and trach, suprapubic catheter, hcv, sent from md for erythema near g tube. patient also i think has abscess there erythema of the ge tube site abscess of the g tube site induration of the site resp failure vented plan will continue abx cx will need another feeding tube rest as per the team
[2018-05-11] MEDS: AMINO ACIDS 4.25%/D5W 1,000 ML IV SCH (14:11)
--- NOTE | 2018-05-11 16:57 | PN ---
Progress Note, Physician History of Present Illness: 63yoM with HTN, afib on eliquis, COPD, hep C, hypothyroidism, CAD s/p [place] with anoxic brain injury almost a year ago, s/p trach, PEG (last June or July at [facility] per niece), suprapubic cystostomy; sent in from [facility] for redness and firmness around PEG site concerning for cellulitis. Found to have mushroom bolster of PEG in subcutaneous tissue/muscle layer with collection beneath it. Tube was removed yesterday with Dr. Akilah Dominguez of GI and replaced with Boucher, loosely in place/not on tension. Some tube feeds and bloody drainage were evacuated at the time. Tube is NOT IN USE, but confirmed in stomach by XR with contrast. On antibiotics per ID for abscess/cellulitis. Trying to maintain site for eventual G-tube replacement and use, but allowing healing over weekend. GI note from earlier noted - site irrigated with no further purulent material obtained. He is seen and examined in bed, unresponsive, with eyes intermittently open, responsive to painful stimuli only. Arms are contracted and internally rotated. Legs/hips somewhat externally rotated. Boucher in gastrostomy is plugged and not in use; he is on Clinimix and antibiotics. - Current Medication List Current Medications: Active Medications Acetaminophen (Ofirmev Injection -) 1,000 mg IVPB Q6H PRN PRN Reason: FEVER Albuterol/Ipratropium (Duoneb -) 1 amp NEB RTID [facility] Last Admin: 05/11/18 14:10 Dose: 1 amp Artificial Tears (Artificial Tears) 1 drop OU QID [facility] Last Admin: 05/11/18 11:15 Dose: 1 drop Amino Acids (Clinimix -) 1,000 mls @ 42 mls/hr IV Q24H [facility] Last Admin: 05/11/18 14:11 Dose: 42 mls/hr Piperacillin Sod/Tazobactam (Sod 3.375 gm/ Dextrose) 50 mls @ 100 mls/hr IVPB Q8H-IV [facility]; Protocol Last Admin: 05/11/18 11:05 Dose: 100 mls/hr Levetiracetam (Keppra Injection -) 500 mg IVPB BID [facility] Last Admin: 05/11/18 11:05 Dose: 500 mg Levothyroxine Sodium (Synthroid Injection -) 130 mcg IVPUSH DAILY@0700 [facility] Last Admin: 05/11/18 06:13 Dose: 130 mcg Metoprolol Tartrate (Lopressor Injection -) 5 mg IVPB Q6H-IV [facility] Last Admin: 05/11/18 16:27 Dose: Not Given - Objective Vital Signs: Vital Signs Temperature 98.8 F 05/11/18 14:31 Pulse Rate 72 05/11/18 14:31 Respiratory Rate 14 05/11/18 14:31 Blood Pressure 91/49 L 05/11/18 16:27 O2 Sat by Pulse Oximetry (%) 99 05/11/18 14:09 Constitutional: Yes: Well Nourished, No Distress, Calm Eyes: Yes: Conjunctiva Clear, Other (does not truly focus) HENT: Yes: Atraumatic, Normocephalic Neck: Yes: Supple, Other (tracheostomy/vented) Gastrointestinal: Yes: Soft, Other (G-tube site with granulation tissue, limited focal erythema near site, a bit less induration around; dressing with serous drainage mostly on gauze, nothing expressible from site; Boucher moves easily in/out, secured with tape so as to ensure no tension; drain sponges left around, site covered with ABD). No: Distention, Tenderness (none apparent) Genitourinary: Yes: Boucher Present (suprapubic cystostomy). No: Hematuria Musculoskeletal: Yes: Joint Stiffness. No: Joint Swelling Extremities: Yes: External Rotation (lower ext), Internal Rotation (BUE). No: Cool, Cyanosis Integumentary: Yes: Erythema (mild/focal at GT site, see above). No: Jaundice, Rash Wound/Incision: Yes: Dressing Dry and Intact, Dressing Removed (and replaced), Draining (very small amount serous (yellow/villatoro) on gauze at GT site), Reddened ( focally, little less than yesterday) Neurological: Yes: Alert, Unresponsive Labs: CBC, BMP 05/11/18 06:00 05/11/18 06:00 CMP Sodium 139 mmol/L (136-145) 05/11/18 06:00 Potassium 3.7 mmol/L (3.5-5.1) 05/11/18 06:00 Chloride 103 mmol/L (98-107) 05/11/18 06:00 Carbon Dioxide 31 mmol/L (21-32) 05/11/18 06:00 Anion Gap 5 MMOL/L (8-16) L 05/11/18 06:00 BUN 19 mg/dL (7-18) H 05/11/18 06:00 Creatinine 0.7 mg/dL (0.55-1.3) 05/11/18 06:00 Creat Clearance w eGFR > 60 (>60) 05/11/18 06:00 Random Glucose 100 mg/dL (74-106) 05/11/18 06:00 Lactic Acid 1.3 mmol/L (0.4-2.0) 05/09/18 15:50 Calcium 8.0 mg/dL (8.5-10.1) L 05/11/18 06:00 Total Bilirubin 0.2 mg/dL (0.2-1) 05/11/18 06:00 AST 16 U/L (15-37) 05/11/18 06:00 ALT 18 U/L (13-61) 05/11/18 06:00 Alkaline Phosphatase 67 U/L (45-117) 05/11/18 06:00 B-Natriuretic Peptide 2335.4 pg/ml (5-125) H 05/10/18 06:00 Total Protein 7.2 g/dl (6.4-8.2) 05/11/18 06:00 Albumin 2.2 g/dl (3.4-5.0) L 05/11/18 06:00 TSH 69.20 uIU/ml (0.358-3.74) H D 05/10/18 06:00 Microbiology 05/09/18 15:34 Blood Culture - Preliminary Blood - Peripheral Venous NO GROWTH OBTAINED AFTER 48 HOURS, INCUBATION TO CONTINUE FOR 3 DAYS. 05/09/18 15:34 Blood Culture - Preliminary Blood - Peripheral Venous NO GROWTH OBTAINED AFTER 48 HOURS, INCUBATION TO CONTINUE FOR 3 DAYS. 05/09/18 15:34 Urine Culture - Final Urine - Urine Clean Catch NO GROWTH OBTAINED Problem List - Problems (1) Dislodged gastrostomy tube Assessment/Plan: TUBE SHOULD NOT BE USED FOR ANY FEEDS OR MEDS at this time continue antibiotics per ID plan for reimaging Monday to reassess if any residual collection present may then be able to replace Boucher with balloon-type gastrostomy tube for future continue Clinimix for nutrition at this time ALL MEDS should be in IV FORM pt stable Code(s): Z43.1 - ENCOUNTER FOR ATTENTION TO GASTROSTOMY (2) Gastrostomy tube dysfunction Code(s): K94.23 - GASTROSTOMY MALFUNCTION (3) Anoxic brain injury Code(s): G93.1 - ANOXIC BRAIN DAMAGE, NOT ELSEWHERE CLASSIFIED (4) Atrial fibrillation Code(s): I48.91 - UNSPECIFIED ATRIAL FIBRILLATION Qualifiers: Atrial fibrillation type: persistent Qualified Code(s): I48.1 - Persistent atrial fibrillation (5) Quadriplegia, functional Code(s): R53.2 - FUNCTIONAL QUADRIPLEGIA (6) Chronic respiratory failure Assessment/Plan: trach/vent dependent Code(s): J96.10 - CHRONIC RESPIRATORY FAILURE, UNSP W HYPOXIA OR HYPERCAPNIA Qualifiers: Respiratory failure complication: unspecified whether with hypoxia or hypercapnia Qualified Code(s): J96.10 - Chronic respiratory failure, unspecified whether with hypoxia or hypercapnia
[2018-05-12] MEDS ORDERED: DEXTROSE 5%-WATER - 50 ML IVPB ONE ×3 (01:55→17:04)
[2018-05-12] MEDS ORDERED: PIPERACILLIN/TAZOBACTAM 3.375 GM VIAL IVPB ONE ×3 (01:55→17:04)
[2018-05-12] MEDS: PIPERACILLIN/TAZOB 3.375 GM 3.375 GM in DEXTROSE 5%-WATER - 50 ML IVPB SCH ×3 (02:44→17:33)
[2018-05-12] MEDS: METOPROLOL TARTRATE 5 MG/5 ML VIAL IVPB SCH ×4 (02:45→21:59)
[2018-05-12] MEDS: ALBUTEROL SO4 2.5/IPRATROPIUM 0.5 INH SOL 3 ML VIAL.NEB. NEB SCH ×3 (08:15→21:04)
[2018-05-12] MEDS ORDERED: PT OWN MED DRAWER 7, Y5N ONE (09:02)
[2018-05-12] MEDS: ARTIFICIAL TEARS (POLYVINYL ALCOHOL) OPTH DROPS OU SCH ×4 (10:00→22:28)
[2018-05-12] MEDS: levETIRAcetam 500 MG/5 ML INJECTION VIAL IVPB SCH ×2 (10:19→22:28)
[2018-05-12] MEDS: LEVOTHYROXINE SODIUM 100 MCG VIAL IVPUSH SCH (10:20)
--- NOTE | 2018-05-12 10:52 | PN ---
Progress Note (short form) - Note Progress Note: awake/ comfortable all f/u noted afebrile Vital Signs Temp 98.8 F 05/12/18 06:00 Pulse 73 05/12/18 09:08 Resp 15 05/12/18 08:15 BP 111/51 L 05/12/18 09:08 Pulse Ox 99 05/12/18 06:36 Intake & Output 05/11/18 05/11/18 05/12/18 11:59 23:59 11:59 Intake Total 954 850 604 Output Total 300 1000 350 Balance 654 -150 254 Intake: IV 504 500 504 clinimax 504 500 504 IVPB 200 350 100 Oral 250 Output: Urine 300 1000 350 Boucher 300 1000 350 Other: Voiding Method Diaper Diaper Indwelling Catheter Bowel Movement No No Active Medications Acetaminophen (Ofirmev Injection -) 1,000 mg IVPB Q6H PRN PRN Reason: FEVER Albuterol/Ipratropium (Duoneb -) 1 amp NEB RTID [facility] Last Admin: 05/12/18 08:15 Dose: 1 amp Artificial Tears (Artificial Tears) 1 drop OU QID [facility] Last Admin: 05/11/18 21:34 Dose: 1 drop Amino Acids (Clinimix -) 1,000 mls @ 42 mls/hr IV Q24H [facility] Last Admin: 05/11/18 14:11 Dose: 42 mls/hr Piperacillin Sod/Tazobactam (Sod 3.375 gm/ Dextrose) 50 mls @ 100 mls/hr IVPB Q8H-IV [facility]; Protocol Last Admin: 05/12/18 10:19 Dose: 100 mls/hr Levetiracetam (Keppra Injection -) 500 mg IVPB BID [facility] Last Admin: 05/12/18 10:19 Dose: 500 mg Levothyroxine Sodium (Synthroid Injection -) 130 mcg IVPUSH DAILY [facility] Last Admin: 05/12/18 10:20 Dose: 130 mcg Metoprolol Tartrate (Lopressor Injection -) 5 mg IVPB Q6H-IV [facility] Last Admin: 05/12/18 09:08 Dose: 5 mg CBC, BMP 05/11/18 06:00 05/11/18 06:00 Microbiology 05/09/18 15:34 Blood Culture - Preliminary Blood - Peripheral Venous NO GROWTH OBTAINED AFTER 48 HOURS, INCUBATION TO CONTINUE FOR 3 DAYS. 05/09/18 15:34 Blood Culture - Preliminary Blood - Peripheral Venous NO GROWTH OBTAINED AFTER 48 HOURS, INCUBATION TO CONTINUE FOR 3 DAYS. 05/09/18 15:34 Urine Culture - Final Urine - Urine Clean Catch NO GROWTH OBTAINED Physical Exam awake. no distress S1 S2 Irregular Lungs decreased trach- vent Abd-- soft, swelling around peg site- pus+ no edema PLAN Discussed with surgery again today NPO Clinimix Hold of lovenox /AC - possible hematoma or infected hematoma? iv antibiotics fluids increase rate monitor lytes continue present care will follow
--- NOTE | 2018-05-12 12:16 | PN ---
Progress Note, Physician History of Present Illness: 63yoM with HTN, afib on eliquis, COPD, hep C, hypothyroidism, CAD s/p [place] with anoxic brain injury almost a year ago, s/p trach, PEG (last June or July at [facility] per niece), suprapubic cystostomy; sent in from [facility] for redness and firmness around PEG site concerning for cellulitis. Found to have mushroom bolster of PEG in subcutaneous tissue/muscle layer with collection beneath it. Tube was removed yesterday with Dr. Akilah Dominguez of GI and replaced with Boucher, loosely in place/not on tension. Some tube feeds and bloody drainage were evacuated at the time. Tube is NOT IN USE, but confirmed in stomach by XR with contrast. On antibiotics per ID for abscess/cellulitis. Trying to maintain site for eventual G-tube replacement and use, but allowing healing over weekend. He is seen and examined in bed, unresponsive, with eyes intermittently open, responsive to painful stimuli only. Arms are contracted and internally rotated. Legs/hips somewhat externally rotated. Boucher in gastrostomy is plugged and not in use; he is on Clinimix and antibiotics. - Current Medication List Current Medications: Active Medications Acetaminophen (Ofirmev Injection -) 1,000 mg IVPB Q6H PRN PRN Reason: FEVER Albuterol/Ipratropium (Duoneb -) 1 amp NEB RTID [facility] Last Admin: 05/12/18 08:15 Dose: 1 amp Artificial Tears (Artificial Tears) 1 drop OU QID [facility] Last Admin: 05/11/18 21:34 Dose: 1 drop Amino Acids (Clinimix -) 1,000 mls @ 42 mls/hr IV Q24H [facility] Last Admin: 05/11/18 14:11 Dose: 42 mls/hr Piperacillin Sod/Tazobactam (Sod 3.375 gm/ Dextrose) 50 mls @ 100 mls/hr IVPB Q8H-IV [facility]; Protocol Last Admin: 05/12/18 10:19 Dose: 100 mls/hr Levetiracetam (Keppra Injection -) 500 mg IVPB BID [facility] Last Admin: 05/12/18 10:19 Dose: 500 mg Levothyroxine Sodium (Synthroid Injection -) 130 mcg IVPUSH DAILY [facility] Last Admin: 05/12/18 10:20 Dose: 130 mcg Metoprolol Tartrate (Lopressor Injection -) 5 mg IVPB Q6H-IV [facility] Last Admin: 05/12/18 09:08 Dose: 5 mg - Objective Vital Signs: Vital Signs Temperature 98.8 F 05/12/18 06:00 Pulse Rate 73 05/12/18 09:08 Respiratory Rate 15 05/12/18 08:15 Blood Pressure 111/51 L 05/12/18 09:08 O2 Sat by Pulse Oximetry (%) 99 05/12/18 06:36 Constitutional: Yes: Well Nourished, No Distress, Calm Eyes: Yes: Conjunctiva Clear, Other (does not focus intentionally) HENT: Yes: Atraumatic, Normocephalic Neck: Yes: Supple, Other (trach/vent) Gastrointestinal: Yes: Soft, Other (Boucher in gastrostomy, off tension, gauze dressing with scant drainage on it, granulation tissue around half of site, nothing expressible from site). No: Distention, Tenderness Genitourinary: Yes: Boucher Present (suprapubic cystostomy). No: Hematuria ( yellow urine) Musculoskeletal: Yes: Joint Stiffness. No: Joint Swelling Extremities: Yes: External Rotation (BLE), Internal Rotation (BUE). No: Cool, Cyanosis Integumentary: No: Jaundice, Rash Wound/Incision: Yes: Dressing Dry and Intact, Dressing Removed (and replaced at gastrostomy site), Draining (scant, yellow/villatoro, dried on gauze) Neurological: Yes: Alert (at baseline), Unresponsive (except to painful stimuli) , Other (with spasms/decerebrate posturing (at baseline)) Labs: no new labs Problem List - Problems (1) Dislodged gastrostomy tube Assessment/Plan: TUBE SHOULD NOT BE USED FOR ANY FEEDS OR MEDS at this time continue antibiotics per ID plan for reimaging Monday to reassess if any residual collection present may then be able to replace Boucher with balloon-type gastrostomy tube for future continue Clinimix for nutrition at this time - increased to 84ml/hr consider adding lipids per dietary/nutrition note ALL MEDS should be in IV FORM pt stable discussed with Dr. Sheppard Code(s): Z43.1 - ENCOUNTER FOR ATTENTION TO GASTROSTOMY (2) Gastrostomy tube dysfunction Code(s): K94.23 - GASTROSTOMY MALFUNCTION (3) Anoxic brain injury Code(s): G93.1 - ANOXIC BRAIN DAMAGE, NOT ELSEWHERE CLASSIFIED (4) Atrial fibrillation Code(s): I48.91 - UNSPECIFIED ATRIAL FIBRILLATION Qualifiers: Atrial fibrillation type: persistent Qualified Code(s): I48.1 - Persistent atrial fibrillation (5) Quadriplegia, functional Code(s): R53.2 - FUNCTIONAL QUADRIPLEGIA (6) Chronic respiratory failure Assessment/Plan: trach/vent dependent Code(s): J96.10 - CHRONIC RESPIRATORY FAILURE, UNSP W HYPOXIA OR HYPERCAPNIA Qualifiers: Respiratory failure complication: unspecified whether with hypoxia or hypercapnia Qualified Code(s): J96.10 - Chronic respiratory failure, unspecified whether with hypoxia or hypercapnia
--- NOTE | 2018-05-12 13:29 | PN ---
Progress Note, Physician History of Present Illness: Pt seen and examined, events noted. He is nonverbal but afebrile, without distress. - Current Medication List Current Medications: Active Medications Acetaminophen (Ofirmev Injection -) 1,000 mg IVPB Q6H PRN PRN Reason: FEVER Albuterol/Ipratropium (Duoneb -) 1 amp NEB RTID [facility] Last Admin: 05/12/18 08:15 Dose: 1 amp Artificial Tears (Artificial Tears) 1 drop OU QID [facility] Last Admin: 05/12/18 10:00 Dose: 1 drop Piperacillin Sod/Tazobactam (Sod 3.375 gm/ Dextrose) 50 mls @ 100 mls/hr IVPB Q8H-IV [facility]; Protocol Last Admin: 05/12/18 10:19 Dose: 100 mls/hr Amino Acids (Clinimix -) 1,000 mls @ 84 mls/hr IV Q12H [facility] Levetiracetam (Keppra Injection -) 500 mg IVPB BID [facility] Last Admin: 05/12/18 10:19 Dose: 500 mg Levothyroxine Sodium (Synthroid Injection -) 130 mcg IVPUSH DAILY [facility] Last Admin: 05/12/18 10:20 Dose: 130 mcg Metoprolol Tartrate (Lopressor Injection -) 5 mg IVPB Q6H-IV [facility] Last Admin: 05/12/18 09:08 Dose: 5 mg - Objective Vital Signs: Vital Signs Temperature 97.6 F 05/12/18 10:00 Pulse Rate 74 05/12/18 10:00 Respiratory Rate 16 05/12/18 10:00 Blood Pressure 111/51 L 05/12/18 10:00 O2 Sat by Pulse Oximetry (%) 100 05/12/18 09:00 Constitutional: Yes: No Distress Cardiovascular: Yes: Regular Rate and Rhythm Respiratory: Yes: Other (+tracheostomy) Gastrointestinal: Yes: Normal Bowel Sounds, Soft, Other (GT site with erythema/ mild induration, no current drainage, sevilla inserted at site) Genitourinary: Yes: Other (SPC) Integumentary: Yes: WNL Labs: CBC, BMP 05/11/18 06:00 05/11/18 06:00 INR, PTT INR 1.28 (0.83-1.09) H 05/09/18 15:34 Microbiology 05/09/18 15:34 Blood - Peripheral Venous Blood Culture - Preliminary NO GROWTH OBTAINED AFTER 48 HOURS, INCUBATION TO CONTINUE FOR 3 DAYS. 05/09/18 15:34 Blood - Peripheral Venous Blood Culture - Preliminary NO GROWTH OBTAINED AFTER 48 HOURS, INCUBATION TO CONTINUE FOR 3 DAYS. 05/09/18 15:34 Urine - Urine Clean Catch Urine Culture - Final NO GROWTH OBTAINED - ....Imaging Chest X-ray: Report Reviewed Cat Scan: Report Reviewed Assessment/Plan Peg site cellulitis/suspected abscess CAD s/p [place] Anoxic encephalopathy s/p trach COPD AFIB -- s/p drainage -- For repeat imaging, peg replacement -- continue antibiotics for now Pt is afebrile without leukocytosis
[2018-05-12] MEDS: AMINO ACIDS 4.25%/D5W 1,000 ML IV SCH (13:42)
--- NOTE | 2018-05-12 16:09 | PN ---
GI Progress Note Subjective: covering for Dr De Leon patient with infected g-tube site - Objective Vital Signs: Vital Signs Temperature 97.6 F 05/12/18 10:00 Pulse Rate 85 05/12/18 14:47 Respiratory Rate 17 05/12/18 15:38 Blood Pressure 141/69 05/12/18 14:47 O2 Sat by Pulse Oximetry (%) 100 05/12/18 09:00 Constitutional: No Distress, Poor Hygeine, Other (on a vent) Eyes: Yes: Occular Prosthesis HENT: Yes: Tonsillar Exudate Cardiovascular: Yes: Regular Rate and Rhythm Respiratory: Yes: CTA Bilaterally Gastrointestinal Inspection: Yes: Other (sevilla catheter in g-tube site) ...Palpate: Yes: Soft, Other (ther peg site is indurated withactive drainage). No: Firm/Rigid, Guarding, Hepatomegaly, Pulsatile Mass, Splenomegaly, Tenderness , Epigastium Labs: CBC, BMP 05/11/18 06:00 05/11/18 06:00 INR, PTT INR 1.28 (0.83-1.09) H 05/09/18 15:34 Problem List - Problems (1) Infection of PEG site Assessment/Plan: with induration R> apply Bacitracin solution to the gauze left message with Dr Corado. Consider to remove sevilla for secondary healing apply Betadine packing and observe continue IV antibiotics Code(s): K94.22 - GASTROSTOMY INFECTION
[2018-05-13] MEDS ORDERED: PIPERACILLIN/TAZOBACTAM 3.375 GM VIAL IVPB ONE ×3 (00:43→17:09)
[2018-05-13] MEDS ORDERED: DEXTROSE 5%-WATER - 50 ML IVPB ONE ×3 (00:43→17:09)
[2018-05-13] MEDS: PIPERACILLIN/TAZOB 3.375 GM 3.375 GM in DEXTROSE 5%-WATER - 50 ML IVPB SCH ×3 (01:21→17:25)
[2018-05-13] MEDS: AMINO ACIDS 4.25%/D5W 1,000 ML IV SCH ×4 (01:22→23:24)
[2018-05-13] MEDS: METOPROLOL TARTRATE 5 MG/5 ML VIAL IVPB SCH ×4 (03:19→22:14)
[2018-05-13 07:14] LABS: BASO % 0.8 % (0-2.0); EOS % 9.5 % (0-4.5); HEMATOCRIT 25.7 % (35.4-49); HEMOGLOBIN 8.6 GM/dL (11.7-16.9); MCH 30.8 pg (25.7-33.7); MCHC 33.4 g/dl (32.0-35.9); MEAN CELL VOLUME 92.3 fl (80-96); MEAN PLT VOLUME 8.5 fl (7.5-11.1); MONO % 7.2 % (3.8-10.2); NEUT % 66.5 % (42.8-82.8); PLATELET COUNT 315 K/MM3 (134-434); RBC 2.78 M/mm3 (4.00-5.60); WHITE BLOOD COUNT 6.8 K/mm3 (4.0-10.0)
[2018-05-13 07:34] LABS: ANION GAP 8 MMOL/L (8-16); BLOOD UREA NITROGEN 20 mg/dL (7-18); CALCIUM 8.4 mg/dL (8.5-10.1); CHLORIDE 105 mmol/L (98-107); CO2 26 mmol/L (21-32); CREATININE 0.7 mg/dL (0.55-1.3); GLUCOSE,RANDOM 115 mg/dL (74-106); MAGNESIUM 2.1 mg/dL (1.8-2.4); PHOSPHOROUS 2.5 mg/dL (2.5-4.9); POTASSIUM 3.4 mmol/L (3.5-5.1); SODIUM 139 mmol/L (136-145)
[2018-05-13] MEDS: ALBUTEROL SO4 2.5/IPRATROPIUM 0.5 INH SOL 3 ML VIAL.NEB. NEB SCH ×3 (08:50→20:59)
[2018-05-13] MEDS ORDERED: PT OWN MED DRAWER 7, Y5N ONE (09:29)
[2018-05-13] MEDS: LEVOTHYROXINE SODIUM 100 MCG VIAL IVPUSH SCH (09:32)
[2018-05-13] MEDS: levETIRAcetam 500 MG/5 ML INJECTION VIAL IVPB SCH ×2 (09:32→23:23)
[2018-05-13] MEDS: ARTIFICIAL TEARS (POLYVINYL ALCOHOL) OPTH DROPS OU SCH ×4 (09:35→23:23)
[2018-05-13] MEDS: KCL 10 MEQ IVPB 10 MEQ/100 ML INFUS.BAG IVPB SCH ×2 (12:02→13:08)
--- NOTE | 2018-05-13 12:26 | PN ---
Progress Note (short form) - Note Progress Note: pt seen/ examined chart reviewed awake. comfortable Vital Signs Temp 98.6 F 05/13/18 10:00 Pulse 74 05/13/18 10:00 Resp 14 05/13/18 10:00 BP 127/79 05/13/18 10:00 Pulse Ox 100 05/13/18 09:00 Intake & Output 05/12/18 05/13/18 05/13/18 23:59 11:59 23:59 Intake Total 1290 1150 Output Total 400 400 Balance 890 750 Intake: IV 840 1000 clinimax 840 1000 IVPB 450 150 Output: Urine 400 400 Boucher 400 400 Other: Voiding Method Indwelling Catheter Diaper Bowel Movement No No Body Mass Index (BMI) 22.9 Active Medications Acetaminophen (Ofirmev Injection -) 1,000 mg IVPB Q6H PRN PRN Reason: FEVER Albuterol/Ipratropium (Duoneb -) 1 amp NEB RTID [facility] Last Admin: 05/13/18 08:50 Dose: 1 amp Artificial Tears (Artificial Tears) 1 drop OU QID [facility] Last Admin: 05/13/18 09:35 Dose: 1 drop Piperacillin Sod/Tazobactam (Sod 3.375 gm/ Dextrose) 50 mls @ 100 mls/hr IVPB Q8H-IV [facility]; Protocol Last Admin: 05/13/18 09:33 Dose: 100 mls/hr Amino Acids (Clinimix -) 1,000 mls @ 84 mls/hr IV Q12H [facility] Last Admin: 05/13/18 01:44 Dose: Not Given Potassium Chloride (Potassium Chloride 10 Meq Premix Ivpb -) 10 meq in 100 mls @ 100 mls/hr IVPB Q60M [facility] Stop: 05/13/18 14:29 Last Admin: 05/13/18 12:02 Dose: 100 mls/hr Levetiracetam (Keppra Injection -) 500 mg IVPB BID [facility] Last Admin: 05/13/18 09:32 Dose: 500 mg Levothyroxine Sodium (Synthroid Injection -) 130 mcg IVPUSH DAILY [facility] Last Admin: 05/13/18 09:32 Dose: 130 mcg Metoprolol Tartrate (Lopressor Injection -) 5 mg IVPB Q6H-IV [facility] Last Admin: 05/13/18 08:12 Dose: Not Given CBC, BMP 05/13/18 06:00 05/13/18 06:00 Microbiology 05/09/18 15:34 Blood Culture - Preliminary Blood - Peripheral Venous NO GROWTH OBTAINED AFTER 72 HOURS, INCUBATION TO CONTINUE FOR 2 DAYS. 05/09/18 15:34 Blood Culture - Preliminary Blood - Peripheral Venous NO GROWTH OBTAINED AFTER 72 HOURS, INCUBATION TO CONTINUE FOR 2 DAYS. Physical Exam awake. no distress S1 S2 Irregular Lungs decreased trach- vent Abd-- soft, swelling around peg site- pus+ no edema PLAN NPO Clinimix Hold of lovenox /AC - possible hematoma or infected hematoma? iv antibiotics fluids increase rate monitor lytes continue present care will follow ct scan tomorrow Problem List - Problems (1) Dislodged gastrostomy tube Code(s): Z43.1 - ENCOUNTER FOR ATTENTION TO GASTROSTOMY (2) Infection of PEG site Code(s): K94.22 - GASTROSTOMY INFECTION (3) Hepatitis C carrier Code(s): Z22.52 - (4) Seizure Code(s): R56.9 - UNSPECIFIED CONVULSIONS (5) Anoxic brain injury Code(s): G93.1 - ANOXIC BRAIN DAMAGE, NOT ELSEWHERE CLASSIFIED (6) Chronic respiratory failure Code(s): J96.10 - CHRONIC RESPIRATORY FAILURE, UNSP W HYPOXIA OR HYPERCAPNIA Qualifiers: Respiratory failure complication: unspecified whether with hypoxia or hypercapnia Qualified Code(s): J96.10 - Chronic respiratory failure, unspecified whether with hypoxia or hypercapnia
--- NOTE | 2018-05-13 13:11 | PN ---
Progress Note, Physician History of Present Illness: 63yoM with HTN, afib on eliquis, COPD, hep C, hypothyroidism, CAD s/p [place] with anoxic brain injury almost a year ago, s/p trach, PEG (last June or July at [facility] per niece), suprapubic cystostomy; sent in from [facility] for redness and firmness around PEG site concerning for cellulitis. Found to have mushroom bolster of PEG in subcutaneous tissue/muscle layer with collection beneath it. Tube was removed with Dr. Akilah Dominguez of GI and replaced with Boucher, loosely in place/not on tension. Some tube feeds and bloody drainage were evacuated at the time. Tube is NOT IN USE, but confirmed in stomach by XR with contrast. On antibiotics per ID for abscess/cellulitis. Trying to maintain site for eventual G-tube replacement and use, but allowing healing over weekend. He is seen and examined in bed, responsive to discomfort/painful stimuli only, with eyes intermittently open. Arms are contracted and internally rotated. Legs/ hips somewhat externally rotated. Boucher in gastrostomy is plugged and not in use ; he is on Clinimix and antibiotics. - Current Medication List Current Medications: Active Medications Acetaminophen (Ofirmev Injection -) 1,000 mg IVPB Q6H PRN PRN Reason: FEVER Albuterol/Ipratropium (Duoneb -) 1 amp NEB RTID [facility] Last Admin: 05/13/18 08:50 Dose: 1 amp Artificial Tears (Artificial Tears) 1 drop OU QID [facility] Last Admin: 05/13/18 09:35 Dose: 1 drop Piperacillin Sod/Tazobactam (Sod 3.375 gm/ Dextrose) 50 mls @ 100 mls/hr IVPB Q8H-IV [facility]; Protocol Last Admin: 05/13/18 09:33 Dose: 100 mls/hr Amino Acids (Clinimix -) 1,000 mls @ 84 mls/hr IV Q12H [facility] Last Admin: 05/13/18 12:33 Dose: 84 mls/hr Potassium Chloride (Potassium Chloride 10 Meq Premix Ivpb -) 10 meq in 100 mls @ 100 mls/hr IVPB Q60M [facility] Stop: 05/13/18 14:29 Last Admin: 05/13/18 13:08 Dose: 100 mls/hr Levetiracetam (Keppra Injection -) 500 mg IVPB BID [facility] Last Admin: 05/13/18 09:32 Dose: 500 mg Levothyroxine Sodium (Synthroid Injection -) 130 mcg IVPUSH DAILY [facility] Last Admin: 05/13/18 09:32 Dose: 130 mcg Metoprolol Tartrate (Lopressor Injection -) 5 mg IVPB Q6H-IV [facility] Last Admin: 05/13/18 08:12 Dose: Not Given - Objective Vital Signs: Vital Signs Temperature 98.6 F 05/13/18 10:00 Pulse Rate 74 05/13/18 10:00 Respiratory Rate 22 H 05/13/18 11:45 Blood Pressure 127/79 05/13/18 10:00 O2 Sat by Pulse Oximetry (%) 100 05/13/18 09:00 Constitutional: Yes: Well Nourished, No Distress, Calm Eyes: Yes: Conjunctiva Clear, Other (does not focus intentionally) HENT: Yes: Atraumatic, Normocephalic Neck: Yes: Supple, Other (trach/vent) Respiratory: Yes: Intubated (via trach), Mechanically Ventilated Gastrointestinal: Yes: Soft, Other (gastrostomy site with granulation tissue, Boucher in place off tension, nothing expressible from site, dressing changed for clean drain sponge, erythema resolved, still with mild induration). No: Distention, Tenderness (none apparent) Genitourinary: Yes: Boucher Present (suprapubic cystostomy). 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 No: Cool, Cyanosis Integumentary: No: Jaundice, Rash Wound/Incision: Yes: Dressing Dry and Intact (at gastrostomy site; old dressing had betadine on it), Dressing Removed (and replaced with clean drain sponge). No: Reddened Neurological: Yes: Alert, Unresponsive (at baseline) Labs: CBC, BMP 05/13/18 06:00 05/13/18 06:00 potassium low, BUN/Cr coming down Mg, Phos normal today Problem List - Problems (1) Dislodged gastrostomy tube Assessment/Plan: TUBE SHOULD NOT BE USED FOR ANY FEEDS OR MEDS at this time continue antibiotics per ID plan for reimaging tomorrow to reassess if any residual collection present CT with IV, enteral contrast ordered for am - to use Boucher to give contrast via gastrostomy, slowly by piston syringe may then be able to replace Boucher with balloon-type gastrostomy tube for future continue Clinimix for nutrition at this time consider adding lipids per dietary/nutrition note ALL MEDS should be in IV FORM pt stable Code(s): Z43.1 - ENCOUNTER FOR ATTENTION TO GASTROSTOMY (2) Gastrostomy tube dysfunction Code(s): K94.23 - GASTROSTOMY MALFUNCTION (3) Anoxic brain injury Code(s): G93.1 - ANOXIC BRAIN DAMAGE, NOT ELSEWHERE CLASSIFIED (4) Atrial fibrillation Code(s): I48.91 - UNSPECIFIED ATRIAL FIBRILLATION Qualifiers: Atrial fibrillation type: persistent Qualified Code(s): I48.1 - Persistent atrial fibrillation (5) Quadriplegia, functional Code(s): R53.2 - FUNCTIONAL QUADRIPLEGIA (6) Chronic respiratory failure Assessment/Plan: trach/vent dependent Code(s): J96.10 - CHRONIC RESPIRATORY FAILURE, UNSP W HYPOXIA OR HYPERCAPNIA Qualifiers: Respiratory failure complication: unspecified whether with hypoxia or hypercapnia Qualified Code(s): J96.10 - Chronic respiratory failure, unspecified whether with hypoxia or hypercapnia
--- NOTE | 2018-05-13 14:53 | PN ---
Progress Note, Physician History of Present Illness: Pt clinically the same. Tmax 99.5F. No distress noted. - Current Medication List Current Medications: Active Medications Acetaminophen (Ofirmev Injection -) 1,000 mg IVPB Q6H PRN PRN Reason: FEVER Albuterol/Ipratropium (Duoneb -) 1 amp NEB RTID [facility] Last Admin: 05/13/18 08:50 Dose: 1 amp Artificial Tears (Artificial Tears) 1 drop OU QID [facility] Last Admin: 05/13/18 09:35 Dose: 1 drop Piperacillin Sod/Tazobactam (Sod 3.375 gm/ Dextrose) 50 mls @ 100 mls/hr IVPB Q8H-IV [facility]; Protocol Last Admin: 05/13/18 09:33 Dose: 100 mls/hr Amino Acids (Clinimix -) 1,000 mls @ 84 mls/hr IV Q12H [facility] Last Admin: 05/13/18 12:33 Dose: 84 mls/hr Levetiracetam (Keppra Injection -) 500 mg IVPB BID [facility] Last Admin: 05/13/18 09:32 Dose: 500 mg Levothyroxine Sodium (Synthroid Injection -) 130 mcg IVPUSH DAILY [facility] Last Admin: 05/13/18 09:32 Dose: 130 mcg Metoprolol Tartrate (Lopressor Injection -) 5 mg IVPB Q6H-IV [facility] Last Admin: 05/13/18 08:12 Dose: Not Given - Objective Vital Signs: Vital Signs Temperature 98.6 F 05/13/18 10:00 Pulse Rate 74 05/13/18 10:00 Respiratory Rate 22 H 05/13/18 11:45 Blood Pressure 127/79 05/13/18 10:00 O2 Sat by Pulse Oximetry (%) 100 05/13/18 09:00 Constitutional: Yes: No Distress Cardiovascular: Yes: Regular Rate and Rhythm Respiratory: Yes: Regular, Other (+trach) Gastrointestinal: Yes: Normal Bowel Sounds, Soft, Other (sevilla in GT site, + surrounding erythema/no purulent discharge noted) Extremities: Yes: Other (contracted) Integumentary: Yes: WNL Labs: CBC, BMP 05/13/18 06:00 05/13/18 06:00 INR, PTT INR 1.28 (0.83-1.09) H 05/09/18 15:34 Microbiology 01/30/19 15:34 Blood - Peripheral Venous Blood Culture - Preliminary NO GROWTH OBTAINED AFTER 72 HOURS, INCUBATION TO CONTINUE FOR 2 DAYS. 05/09/18 15:34 Blood - Peripheral Venous Blood Culture - Preliminary NO GROWTH OBTAINED AFTER 72 HOURS, INCUBATION TO CONTINUE FOR 2 DAYS. 05/09/18 15:34 Urine - Urine Clean Catch Urine Culture - Final NO GROWTH OBTAINED Problem List - Problems (1) Dislodged gastrostomy tube Code(s): Z43.1 - ENCOUNTER FOR ATTENTION TO GASTROSTOMY (2) Infection of PEG site Code(s): K94.22 - GASTROSTOMY INFECTION (3) Hepatitis C carrier Code(s): Z22.52 - (4) Anoxic brain injury Code(s): G93.1 - ANOXIC BRAIN DAMAGE, NOT ELSEWHERE CLASSIFIED (5) Chronic respiratory failure Code(s): J96.10 - CHRONIC RESPIRATORY FAILURE, UNSP W HYPOXIA OR HYPERCAPNIA Qualifiers: Respiratory failure complication: unspecified whether with hypoxia or hypercapnia Qualified Code(s): J96.10 - Chronic respiratory failure, unspecified whether with hypoxia or hypercapnia (6) Quadriplegia, functional Code(s): R53.2 - FUNCTIONAL QUADRIPLEGIA Assessment/Plan Peg site cellulitis/suspected abscess CAD s/p CA Anoxic encephalopathy s/p trach COPD AFIB -- s/p drainage -- continue antibiotics -- repeat imaging, peg replacement planned -- monitor temps, pt currently stable
[2018-05-13] MEDS ORDERED: FAT EMULSIONS 20% 250 ML PREMIX INFUS.BAG IV SCH (22:00)
[2018-05-13] MEDS: FAT EMULSIONS 250 ML IV SCH (23:25)
[2018-05-14] MEDS ORDERED: PIPERACILLIN/TAZOBACTAM 3.375 GM VIAL IVPB ONE ×4 (00:42→18:01)
[2018-05-14] MEDS ORDERED: DEXTROSE 5%-WATER - 50 ML IVPB ONE ×4 (00:42→18:02)
[2018-05-14] MEDS: PIPERACILLIN/TAZOB 3.375 GM 3.375 GM in DEXTROSE 5%-WATER - 50 ML IVPB SCH ×3 (01:52→18:03)
[2018-05-14] MEDS: METOPROLOL TARTRATE 5 MG/5 ML VIAL IVPB SCH ×4 (04:05→22:22)
[2018-05-14 07:05] LABS: BASO % 0.9 % (0-2.0); EOS % 11.2 % (0-4.5); HEMATOCRIT 24.2 % (35.4-49); HEMOGLOBIN 7.9 GM/dL (11.7-16.9); LYMPH % 18.4 % (8-40); MCH 30.1 pg (25.7-33.7); MCHC 32.8 g/dl (32.0-35.9); MEAN CELL VOLUME 91.7 fl (80-96); MEAN PLT VOLUME 8.2 fl (7.5-11.1); MONO % 8.1 % (3.8-10.2); NEUT % 61.4 % (42.8-82.8); PLATELET COUNT 291 K/MM3 (134-434); RBC 2.63 M/mm3 (4.00-5.60); RDW 17.2 % (11.9-15.9)
[2018-05-14] MEDS: ALBUTEROL SO4 2.5/IPRATROPIUM 0.5 INH SOL 3 ML VIAL.NEB. NEB SCH ×3 (07:20→20:45)
[2018-05-14 07:37] LABS: ANION GAP 7 MMOL/L (8-16); BLOOD UREA NITROGEN 21 mg/dL (7-18); CALCIUM 8.1 mg/dL (8.5-10.1); CHLORIDE 107 mmol/L (98-107); CO2 27 mmol/L (21-32); CREATININE 0.6 mg/dL (0.55-1.3); GLUCOSE,RANDOM 101 mg/dL (74-106); POTASSIUM 3.2 mmol/L (3.5-5.1); SODIUM 140 mmol/L (136-145)
[2018-05-14] MEDS ORDERED: PT OWN MED DRAWER 7, Y5N ONE (10:08)
[2018-05-14] MEDS: levETIRAcetam 500 MG/5 ML INJECTION VIAL IVPB SCH ×2 (10:28→22:34)
[2018-05-14] MEDS: LEVOTHYROXINE SODIUM 100 MCG VIAL IVPUSH SCH (10:32)
[2018-05-14] MEDS: ARTIFICIAL TEARS (POLYVINYL ALCOHOL) OPTH DROPS OU SCH ×4 (10:38→22:33)
--- NOTE | 2018-05-14 11:22 | PN ---
Progress Note (short form) - Note Progress Note: pt seen/ examined comfortable no new issues afebrile ct scan today Vital Signs Temp 98.5 F 05/14/18 06:00 Pulse 89 05/14/18 10:56 Resp 22 H 05/14/18 11:07 BP 141/64 05/14/18 10:56 Pulse Ox 100 05/14/18 08:03 Intake & Output 05/13/18 05/13/18 05/14/18 11:59 23:59 11:59 Intake Total 7794 138 6587.2 Output Total 400 1200 500 Balance 750 -228 689.2 Intake: IV 2776 210 2527.2 INTRALIPID 187.2 clinimax 1635 268 0219 IVPB 150 300 Oral 0 Output: Urine 400 1200 500 Boucher 400 1200 500 Other: Voiding Method Diaper Indwelling Catheter Bowel Movement No No Body Mass Index (BMI) 22.9 Active Medications Acetaminophen (Ofirmev Injection -) 1,000 mg IVPB Q6H PRN PRN Reason: FEVER Albuterol/Ipratropium (Duoneb -) 1 amp NEB RTID [facility] Last Admin: 05/14/18 07:20 Dose: 1 amp Artificial Tears (Artificial Tears) 1 drop OU QID [facility] Last Admin: 05/14/18 10:38 Dose: 1 drop Piperacillin Sod/Tazobactam (Sod 3.375 gm/ Dextrose) 50 mls @ 100 mls/hr IVPB Q8H-IV [facility]; Protocol Last Admin: 05/14/18 10:37 Dose: 100 mls/hr Amino Acids (Clinimix -) 1,000 mls @ 84 mls/hr IV Q12H [facility] Last Admin: 05/13/18 23:24 Dose: 84 mls/hr Fat Emulsion Intravenous (Intralipid -) 250 mls @ 20.833 mls/hr IV DAILY@2200 [facility] Last Admin: 05/13/18 23:25 Dose: 20.833 mls/hr Potassium Chloride (Potassium Chloride 10 Meq Premix Ivpb -) 10 meq in 100 mls @ 100 mls/hr IVPB Q60M [facility] Stop: 05/14/18 14:29 Levetiracetam (Keppra Injection -) 500 mg IVPB BID [facility] Last Admin: 05/14/18 10:28 Dose: 500 mg Levothyroxine Sodium (Synthroid Injection -) 130 mcg IVPUSH DAILY [facility] Last Admin: 05/14/18 10:32 Dose: 130 mcg Metoprolol Tartrate (Lopressor Injection -) 5 mg IVPB Q6H-IV [facility] Last Admin: 05/14/18 10:56 Dose: Not Given CBC, BMP 05/14/18 06:00 05/14/18 06:00 Microbiology 05/09/18 15:34 Blood Culture - Preliminary Blood - Peripheral Venous NO GROWTH OBTAINED AFTER 96 HOURS, INCUBATION TO CONTINUE FOR 1 DAYS. 05/09/18 15:34 Blood Culture - Preliminary Blood - Peripheral Venous NO GROWTH OBTAINED AFTER 96 HOURS, INCUBATION TO CONTINUE FOR 1 DAYS. Physical Exam awake. no distress S1 S2 Irregular Lungs decreased trach- vent Abd-- soft, swelling around peg site- pus+ no edema PLAN NPO Clinimix Hold of lovenox /AC - possible hematoma or infected hematoma? Will consider restarting tomorrow----after CAT scan today-- iv antibiotics fluids monitor lytes continue present care will follow ct scan today Discussed with nursing staff Will follow Problem List - Problems (1) Dislodged gastrostomy tube Code(s): Z43.1 - ENCOUNTER FOR ATTENTION TO GASTROSTOMY (2) Infection of PEG site Code(s): K94.22 - GASTROSTOMY INFECTION (3) Hepatitis C carrier Code(s): Z22.52 - (4) Seizure Code(s): R56.9 - UNSPECIFIED CONVULSIONS (5) Anoxic brain injury Code(s): G93.1 - ANOXIC BRAIN DAMAGE, NOT ELSEWHERE CLASSIFIED (6) Chronic respiratory failure Code(s): J96.10 - CHRONIC RESPIRATORY FAILURE, UNSP W HYPOXIA OR HYPERCAPNIA Qualifiers: Respiratory failure complication: unspecified whether with hypoxia or hypercapnia Qualified Code(s): J96.10 - Chronic respiratory failure, unspecified whether with hypoxia or hypercapnia
--- NOTE | 2018-05-14 11:40 | PN ---
Progress Note (short form) - Note Progress Note: Pt seen and examined Labs reviewed Pt to have repeat CT at around noon per RN Vital Signs Temp 98.5 F 05/14/18 06:00 Pulse 89 05/14/18 10:56 Resp 22 H 05/14/18 11:07 BP 141/64 05/14/18 10:56 Pulse Ox 100 05/14/18 08:03 NAD abdomen soft, Boucher in place, minimal erythema around PEG site CBC, BMP 05/14/18 06:00 05/14/18 06:[address]; further recommendations pending results Continue IV antibiotics
[2018-05-14] MEDS: AMINO ACIDS 4.25%/D5W 1,000 ML IV SCH ×2 (12:26→23:31)
[2018-05-14] MEDS: KCL 10 MEQ IVPB 10 MEQ/100 ML INFUS.BAG IVPB SCH ×3 (12:26→17:30)
--- NOTE | 2018-05-14 13:16 | PN ---
Progress Note, Physician - Current Medication List Current Medications: Active Medications Acetaminophen (Ofirmev Injection -) 1,000 mg IVPB Q6H PRN PRN Reason: FEVER Albuterol/Ipratropium (Duoneb -) 1 amp NEB RTID [facility] Last Admin: 05/14/18 07:20 Dose: 1 amp Artificial Tears (Artificial Tears) 1 drop OU QID [facility] Last Admin: 05/14/18 10:38 Dose: 1 drop Piperacillin Sod/Tazobactam (Sod 3.375 gm/ Dextrose) 50 mls @ 100 mls/hr IVPB Q8H-IV [facility]; Protocol Last Admin: 05/14/18 10:37 Dose: 100 mls/hr Amino Acids (Clinimix -) 1,000 mls @ 84 mls/hr IV Q12H [facility] Last Admin: 05/14/18 12:26 Dose: 84 mls/hr Fat Emulsion Intravenous (Intralipid -) 250 mls @ 20.833 mls/hr IV DAILY@2200 [facility] Last Admin: 05/13/18 23:25 Dose: 20.833 mls/hr Potassium Chloride (Potassium Chloride 10 Meq Premix Ivpb -) 10 meq in 100 mls @ 100 mls/hr IVPB Q60M [facility] Stop: 05/14/18 14:29 Last Admin: 05/14/18 12:26 Dose: 100 mls/hr Levetiracetam (Keppra Injection -) 500 mg IVPB BID [facility] Last Admin: 05/14/18 10:28 Dose: 500 mg Levothyroxine Sodium (Synthroid Injection -) 130 mcg IVPUSH DAILY [facility] Last Admin: 05/14/18 10:32 Dose: 130 mcg Metoprolol Tartrate (Lopressor Injection -) 5 mg IVPB Q6H-IV [facility] Last Admin: 05/14/18 10:56 Dose: Not Given - Objective Vital Signs: Vital Signs Temperature 98.5 F 05/14/18 06:00 Pulse Rate 89 05/14/18 10:56 Respiratory Rate 22 H 05/14/18 11:07 Blood Pressure 141/64 05/14/18 10:56 O2 Sat by Pulse Oximetry (%) 100 05/14/18 08:03 Labs: CBC, BMP 05/14/18 06:00 05/14/18 06:00 INR, PTT INR 1.28 (0.83-1.09) H 05/09/18 15:34
--- NOTE | 2018-05-14 15:34 | PN ---
Progress Note (short form) - Note Progress Note: s: non communicative o: Vital Signs Period Temp Pulse Resp BP Sys/Bhardwaj Pulse Ox Last 24 Hr 98.5 F-100.0 F 68-103 12-27 104-141/51-92 100-100 nad no jvd rr, irreg s1s2 no mrg cta bl ant, trached abd nd pos bs no jaundice diaphoresis no le e/c/c non communicative Current Medications Acetaminophen (Ofirmev Injection -) 1,000 mg IVPB Q6H PRN PRN Reason: FEVER Albuterol/Ipratropium (Duoneb -) 1 amp NEB RTID [facility] Last Admin: 05/14/18 14:31 Dose: 1 amp Artificial Tears (Artificial Tears) 1 drop OU QID [facility] Last Admin: 05/14/18 10:38 Dose: 1 drop Piperacillin Sod/Tazobactam (Sod 3.375 gm/ Dextrose) 50 mls @ 100 mls/hr IVPB Q8H-IV [facility]; Protocol Last Admin: 05/14/18 10:37 Dose: 100 mls/hr Amino Acids (Clinimix -) 1,000 mls @ 84 mls/hr IV Q12H [facility] Last Admin: 05/14/18 12:26 Dose: 84 mls/hr Fat Emulsion Intravenous (Intralipid -) 250 mls @ 20.833 mls/hr IV DAILY@2200 [facility] Last Admin: 05/13/18 23:25 Dose: 20.833 mls/hr Levetiracetam (Keppra Injection -) 500 mg IVPB BID [facility] Last Admin: 05/14/18 10:28 Dose: 500 mg Levothyroxine Sodium (Synthroid Injection -) 130 mcg IVPUSH DAILY [facility] Last Admin: 05/14/18 10:32 Dose: 130 mcg Metoprolol Tartrate (Lopressor Injection -) 5 mg IVPB Q6H-IV [facility] Last Admin: 05/14/18 10:56 Dose: Not Given cxr: mild chf, r infiltrate ecg: afib, rate ok, no ischemic changes echo 08/2017: mod-sev dec lvef, global hk, nl rv, no sig valve path a/p: 63 m hx afib, syst chf, ex drug abuse, cardiac arrest with anoxic brain injury and trach, suprapubic catheter, hcv, sent from md for erythema near g tube. malfunctioning g-tube: -imaging shows g tube in abd wall, surgery and GI following -?hematoma near site so AC on hold for now afib: -rate ok, cont iv bb prn while NPO -at md on amio 200, lopressor 50 bid, and dig (level ok here). resume when able to take po -ac on hold 2/2 hematoma near g-tube site chronic syst chf: -stable, resume po lasix when able to take pills -for now can give iv lasix prn - appears euvolemic hypothyroid: -tsh elevated, management per pmd
--- NOTE | 2018-05-14 16:00 | PN ---
Progress Note, Physician History of Present Illness: 63yoM with HTN, afib on eliquis, COPD, hep C, hypothyroidism, CAD s/p [place] with anoxic brain injury almost a year ago, s/p trach, PEG (last June or July at [facility] per niece), suprapubic cystostomy; sent in from [facility] for redness and firmness around PEG site concerning for cellulitis. Found to have mushroom bolster of PEG in subcutaneous tissue/muscle layer with collection beneath it. Tube was removed with Dr. Akilah Dominguez of GI and replaced with Boucher, loosely in place/not on tension. Some tube feeds and bloody drainage were evacuated at the time. Tube is NOT IN USE, but confirmed in stomach by XR with contrast. On antibiotics per ID for abscess/cellulitis. Trying to maintain site for eventual G-tube replacement and use, but allowing healing over weekend. He is seen and examined in bed, responsive to discomfort/painful stimuli only, with eyes intermittently open. Arms are contracted and internally rotated, with spasms/posturing. Legs/hips somewhat externally rotated. Boucher in gastrostomy is plugged and not in use; he is on Clinimix and antibiotics. CT was done earlier today with enteral contrast via Boucher in gastrostomy and IV contrast. There has been no leakage from the site. - Current Medication List Current Medications: Active Medications Acetaminophen (Ofirmev Injection -) 1,000 mg IVPB Q6H PRN PRN Reason: FEVER Albuterol/Ipratropium (Duoneb -) 1 amp NEB RTID [facility] Last Admin: 05/14/18 14:31 Dose: 1 amp Artificial Tears (Artificial Tears) 1 drop OU QID [facility] Last Admin: 05/14/18 10:38 Dose: 1 drop Piperacillin Sod/Tazobactam (Sod 3.375 gm/ Dextrose) 50 mls @ 100 mls/hr IVPB Q8H-IV [facility]; Protocol Last Admin: 05/14/18 10:37 Dose: 100 mls/hr Amino Acids (Clinimix -) 1,000 mls @ 84 mls/hr IV Q12H [facility] Last Admin: 05/14/18 12:26 Dose: 84 mls/hr Fat Emulsion Intravenous (Intralipid -) 250 mls @ 20.833 mls/hr IV DAILY@2200 [facility] Last Admin: 02/03/19 23:25 Dose: 20.833 mls/hr Levetiracetam (Keppra Injection -) 500 mg IVPB BID [facility] Last Admin: 05/14/18 10:28 Dose: 500 mg Levothyroxine Sodium (Synthroid Injection -) 130 mcg IVPUSH DAILY [facility] Last Admin: 05/14/18 10:32 Dose: 130 mcg Metoprolol Tartrate (Lopressor Injection -) 5 mg IVPB Q6H-IV [facility] Last Admin: 05/14/18 10:56 Dose: Not Given - Objective Vital Signs: Vital Signs Temperature 98.5 F 05/14/18 06:00 Pulse Rate 89 05/14/18 10:56 Respiratory Rate 27 H 05/14/18 14:30 Blood Pressure 141/64 05/14/18 10:56 O2 Sat by Pulse Oximetry (%) 100 05/14/18 08:03 Constitutional: Yes: Well Nourished, No Distress, Calm Eyes: Yes: Conjunctiva Clear, Other (does not focus intentionally) HENT: Yes: Atraumatic, Normocephalic Neck: Yes: Supple, Other (trach/vent) Respiratory: Yes: Intubated (via tracheostomy), Mechanically Ventilated Gastrointestinal: Yes: Soft, Other (gastrostomy site with granulation tissue around half of edge, Boucher in place, off tension, scant dried yellow/brown on drain sponge, nothing expressible from site - initial redness/local erythema resolved). No: Distention Genitourinary: Yes: Boucher Present (suprapubic cystostomy). No: Hematuria Extremities: Yes: External Rotation (BLE), Internal Rotation (BUE, with spasms/ posturing). No: Cool, Cyanosis Integumentary: No: Jaundice, Rash Wound/Incision: Yes: Dressing Dry and Intact, Dressing Removed (and drain sponge replaced, tube coiled gently over gauze and taped a little to hold in place). No: Draining (no significant drainage) Neurological: Yes: Alert, Unresponsive (at baseline) Labs: CBC, BMP 05/14/18 06:00 05/14/18 06:00 K being repleted - ....Imaging Cat Scan: Report Reviewed, Image Reviewed (images personally reviewed - Boucher in stomach, contrast in SB and LB with no gastric extravasation, G-tube site with decreased local changes, no residual collection just likely edema, resolving inflammation) Problem List - Problems (1) Dislodged gastrostomy tube Assessment/Plan: TUBE SHOULD NOT BE USED FOR ANY FEEDS OR MEDS at this time continue antibiotics per ID CT shows resolving inflammatory changes, no residual collection at G-tube site will see with GI tomorrow and possibly replace Boucher with balloon-type gastrostomy tube replete potassium follow labs/lytes continue Clinimix for nutrition at this time consider adding lipids per dietary/nutrition note ALL MEDS should be in IV FORM pt stable Code(s): Z43.1 - ENCOUNTER FOR ATTENTION TO GASTROSTOMY (2) Gastrostomy tube dysfunction Code(s): K94.23 - GASTROSTOMY MALFUNCTION (3) Anoxic brain injury Code(s): G93.1 - ANOXIC BRAIN DAMAGE, NOT ELSEWHERE CLASSIFIED (4) Atrial fibrillation Code(s): I48.91 - UNSPECIFIED ATRIAL FIBRILLATION Qualifiers: Atrial fibrillation type: persistent Qualified Code(s): I48.1 - Persistent atrial fibrillation (5) Quadriplegia, functional Code(s): R53.2 - FUNCTIONAL QUADRIPLEGIA (6) Chronic respiratory failure Assessment/Plan: trach/vent dependent Code(s): J96.10 - CHRONIC RESPIRATORY FAILURE, UNSP W HYPOXIA OR HYPERCAPNIA Qualifiers: Respiratory failure complication: unspecified whether with hypoxia or hypercapnia Qualified Code(s): J96.10 - Chronic respiratory failure, unspecified whether with hypoxia or hypercapnia
[2018-05-14] MEDS: FAT EMULSIONS 250 ML IV SCH (22:34)
[2018-05-15] MEDS ORDERED: DEXTROSE 5%-WATER - 50 ML IVPB ONE ×3 (01:43→16:46)
[2018-05-15] MEDS ORDERED: PIPERACILLIN/TAZOBACTAM 3.375 GM VIAL IVPB ONE ×3 (01:43→16:46)
[2018-05-15] MEDS: METOPROLOL TARTRATE 5 MG/5 ML VIAL IVPB SCH ×4 (02:09→21:39)
[2018-05-15] MEDS: PIPERACILLIN/TAZOB 3.375 GM 3.375 GM in DEXTROSE 5%-WATER - 50 ML IVPB SCH ×3 (02:43→17:05)
[2018-05-15 08:20] LABS: BASO % 0.7 % (0-2.0); EOS % 9.6 % (0-4.5); HEMATOCRIT 26.3 % (35.4-49); LYMPH % 14.2 % (8-40); MCH 31.5 pg (25.7-33.7); MCHC 34.2 g/dl (32.0-35.9); MEAN PLT VOLUME 8.3 fl (7.5-11.1); MONO % 6.6 % (3.8-10.2); NEUT % 68.9 % (42.8-82.8); PLATELET COUNT 289 K/MM3 (134-434); RBC 2.86 M/mm3 (4.00-5.60); RDW 17.1 % (11.9-15.9); WHITE BLOOD COUNT 7.4 K/mm3 (4.0-10.0)
[2018-05-15 08:57] LABS: ALBUMIN 2.5 g/dl (3.4-5.0); ALK PHOS 63 U/L (45-117); ANION GAP 5 MMOL/L (8-16); BILIRUBIN,TOTAL 0.2 mg/dL (0.2-1); BLOOD UREA NITROGEN 20 mg/dL (7-18); CALCIUM 8.4 mg/dL (8.5-10.1); CHLORIDE 109 mmol/L (98-107); CO2 26 mmol/L (21-32); CREATININE 0.6 mg/dL (0.55-1.3); GLUCOSE,RANDOM 110 mg/dL (74-106); POTASSIUM 3.6 mmol/L (3.5-5.1); SGOT/AST 21 U/L (15-37); SGPT/ALT 14 U/L (13-61); SODIUM 140 mmol/L (136-145); TOT PROT 7.4 g/dl (6.4-8.2)
[2018-05-15] MEDS ORDERED: PT OWN MED DRAWER 7, Y5N ONE ×2 (10:07→11:29)
[2018-05-15] MEDS: levETIRAcetam 500 MG/5 ML INJECTION VIAL IVPB SCH ×2 (10:10→22:15)
[2018-05-15] MEDS: ARTIFICIAL TEARS (POLYVINYL ALCOHOL) OPTH DROPS OU SCH ×4 (10:16→22:16)
[2018-05-15] MEDS: LEVOTHYROXINE SODIUM 100 MCG VIAL IVPUSH SCH (11:26)
--- NOTE | 2018-05-15 11:59 | PN ---
Progress Note (short form) - Note Progress Note: has a sevilla placed to keep stoma patent no distress awake Vital Signs - 24 hr 05/14/18 05/14/18 05/14/18 14:30 15:20 15:30 Temperature 99.6 F Pulse Rate 93 H 93 H Respiratory 27 H 12 Rate Blood Pressure 120/84 120/84 O2 Sat by Pulse Oximetry (%) 05/14/18 05/14/18 05/14/18 17:30 21:00 21:04 Temperature Pulse Rate Respiratory 17 20 16 Rate Blood Pressure O2 Sat by Pulse 99 Oximetry (%) 05/14/18 05/14/18 05/14/18 21:06 22:00 22:22 Temperature Pulse Rate 84 85 88 Respiratory 16 Rate Blood Pressure 100/52 L O2 Sat by Pulse 99 Oximetry (%) 05/14/18 05/15/18 05/15/18 23:52 02:00 02:09 Temperature 98.3 F Pulse Rate 93 H 78 Respiratory 18 20 Rate Blood Pressure 105/68 O2 Sat by Pulse Oximetry (%) 05/15/18 05/15/18 05/15/18 04:09 06:00 06:53 Temperature 98.2 F Pulse Rate 133 H Respiratory 27 H 20 21 H Rate Blood Pressure 140/97 O2 Sat by Pulse Oximetry (%) 05/15/18 05/15/18 05/15/18 09:04 10:00 12:08 Temperature Pulse Rate 88 Respiratory 18 18 Rate Blood Pressure O2 Sat by Pulse Oximetry (%) Current Medications Generic Name Dose Route Start Last Admin Trade Name Freq PRN Reason Stop Dose Admin Acetaminophen 1,000 mg 05/10/18 12:45 Ofirmev Injection - IVPB Q6H PRN FEVER Artificial Tears 1 drop 05/10/18 10:00 05/15/18 10:16 Artificial Tears OU 1 drop QID [facility] Administration Piperacillin Sod/Tazobactam 50 mls @ 100 mls/hr 05/10/18 13:00 05/15/18 10:10 Sod 3.375 gm/ Dextrose IVPB 100 mls/hr Q8H-IV [facility] Administration Protocol Amino Acids 1,000 mls @ 84 mls/hr 05/12/18 12:14 05/14/18 23:31 Clinimix - IV 84 mls/hr Q12H [facility] Administration Fat Emulsion Intravenous 250 mls @ 20.833 mls/hr 05/13/18 22:00 05/14/18 22: 34 Intralipid - IV 20.833 mls/hr DAILY@2200 [facility] Administration Levetiracetam 500 mg 05/10/18 10:00 05/15/18 10:10 Keppra Injection - IVPB 500 mg BID [facility] Administration Levothyroxine Sodium 130 mcg 05/12/18 10:00 05/15/18 11:26 Synthroid Injection - IVPUSH 130 mcg DAILY [facility] Administration Metoprolol Tartrate 5 mg 05/10/18 15:08 05/15/18 10:00 Lopressor Injection - IVPB Not Given Q6H-IV [facility] Laboratory Results - last 24 hr 05/15/18 05/15/18 07:00 07:00 WBC 7.4 RBC 2.86 L Hgb 9.0 L Hct 26.3 L MCV 92.0 MCH 31.5 MCHC 34.2 RDW 17.1 H Plt Count 289 MPV 8.3 Absolute Neuts (auto) 5.1 Neutrophils % 68.9 Lymphocytes % 14.2 D Monocytes % 6.6 Eosinophils % 9.6 H Basophils % 0.7 Nucleated RBC % 0 Sodium 140 Potassium 3.6 Chloride 109 H Carbon Dioxide 26 Anion Gap 5 L BUN 20 H Creatinine 0.6 Creat Clearance w eGFR > 60 Random Glucose 110 H Calcium 8.4 L Total Bilirubin 0.2 AST 21 ALT 14 Alkaline Phosphatase 63 Total Protein 7.4 Albumin 2.5 L S1 S2 Irregular Lungs decreased trach- vent Abd-- soft,erythema + NT, sevilla+ trace edema PLAN continue with iv antibiotic , clinimix will resume Lovenox -- ct abdomen noted-- clearing of subcutaneous fluid will need to replace sevilla with peg per GI/Surgery Problem List - Problems (1) Gastrostomy tube dysfunction Code(s): K94.23 - GASTROSTOMY MALFUNCTION (2) Hepatitis C carrier Code(s): Z22.52 - (3) Mitral valve prolapse Code(s): I34.1 - NONRHEUMATIC MITRAL (VALVE) PROLAPSE (4) Anoxic brain injury Code(s): G93.1 - ANOXIC BRAIN DAMAGE, NOT ELSEWHERE CLASSIFIED (5) Atrial fibrillation Code(s): I48.91 - UNSPECIFIED ATRIAL FIBRILLATION Qualifiers: Atrial fibrillation type: persistent Qualified Code(s): I48.1 - Persistent atrial fibrillation (6) Chronic respiratory failure Code(s): J96.10 - CHRONIC RESPIRATORY FAILURE, UNSP W HYPOXIA OR HYPERCAPNIA Qualifiers: Respiratory failure complication: unspecified whether with hypoxia or hypercapnia Qualified Code(s): J96.10 - Chronic respiratory failure, unspecified whether with hypoxia or hypercapnia (7) Quadriplegia, functional Code(s): R53.2 - FUNCTIONAL QUADRIPLEGIA
[2018-05-15] MEDS ORDERED: ENOXAPARIN NA (PORCINE) 80 MG/0.8 ML DISP.SYRIN SQ SCH (12:45)
--- NOTE | 2018-05-15 13:02 | PN ---
Progress Note, Physician - Current Medication List Current Medications: Active Medications Acetaminophen (Ofirmev Injection -) 1,000 mg IVPB Q6H PRN PRN Reason: FEVER Artificial Tears (Artificial Tears) 1 drop OU QID [facility] Last Admin: 05/15/18 10:16 Dose: 1 drop Enoxaparin Sodium (Lovenox -) 80 mg SQ BID [facility] Piperacillin Sod/Tazobactam (Sod 3.375 gm/ Dextrose) 50 mls @ 100 mls/hr IVPB Q8H-IV [facility]; Protocol Last Admin: 05/15/18 10:10 Dose: 100 mls/hr Amino Acids (Clinimix -) 1,000 mls @ 84 mls/hr IV Q12H [facility] Last Admin: 05/14/18 23:31 Dose: 84 mls/hr Fat Emulsion Intravenous (Intralipid -) 250 mls @ 20.833 mls/hr IV DAILY@2200 [facility] Last Admin: 05/14/18 22:34 Dose: 20.833 mls/hr Levetiracetam (Keppra Injection -) 500 mg IVPB BID [facility] Last Admin: 05/15/18 10:10 Dose: 500 mg Levothyroxine Sodium (Synthroid Injection -) 130 mcg IVPUSH DAILY [facility] Last Admin: 05/15/18 11:26 Dose: 130 mcg Metoprolol Tartrate (Lopressor Injection -) 5 mg IVPB Q6H-IV [facility] Last Admin: 05/15/18 10:00 Dose: Not Given - Objective Vital Signs: Vital Signs Temperature 98.2 F 05/15/18 06:00 Pulse Rate 88 05/15/18 10:00 Respiratory Rate 18 05/15/18 12:08 Blood Pressure 140/97 05/15/18 06:00 O2 Sat by Pulse Oximetry (%) 99 05/14/18 21:06 Labs: CBC, BMP 05/15/18 07:00 05/15/18 07:00 INR, PTT INR 1.28 (0.83-1.09) H 05/09/18 15:34
[2018-05-15] MEDS: AMINO ACIDS 4.25%/D5W 1,000 ML IV SCH ×2 (14:30→23:52)
--- NOTE | 2018-05-15 16:05 | PN ---
Progress Note, Physician History of Present Illness: 63yoM with HTN, afib on eliquis, COPD, hep C, hypothyroidism, CAD s/p [place] with anoxic brain injury almost a year ago, s/p trach, PEG (last June or July at [facility] per niece), suprapubic cystostomy; sent in from [facility] for redness and firmness around PEG site concerning for cellulitis. Found to have mushroom bolster of PEG in subcutaneous tissue/muscle layer with collection beneath it. Tube was removed with Dr. Akilah Dominguez of GI and replaced with Boucher, loosely in place/not on tension. Some tube feeds and bloody drainage were evacuated at the time. Tube is NOT IN USE, but confirmed in stomach by XR with contrast. On antibiotics per ID for abscess/cellulitis. Trying to maintain site for eventual G-tube replacement and use, but allowing healing over weekend. He is seen and examined in bed, responsive to discomfort/painful stimuli only, with eyes intermittently open. Arms are contracted and internally rotated, with spasms/posturing. Legs/hips somewhat externally rotated. Boucher in gastrostomy is plugged and not in use; he is on Clinimix and antibiotics. CT was done yesterday with enteral contrast via Boucher in gastrostomy and IV contrast, with no extravasation, showing no residual collection but some resolving edema/ inflammation. There has been no leakage from the site, just scant normal site drainage on drain dressing. - Current Medication List Current Medications: Active Medications Acetaminophen (Ofirmev Injection -) 1,000 mg IVPB Q6H PRN PRN Reason: FEVER Artificial Tears (Artificial Tears) 1 drop OU QID [facility] Last Admin: 05/15/18 13:26 Dose: 1 drop Piperacillin Sod/Tazobactam (Sod 3.375 gm/ Dextrose) 50 mls @ 100 mls/hr IVPB Q8H-IV [facility]; Protocol Last Admin: 05/15/18 10:10 Dose: 100 mls/hr Amino Acids (Clinimix -) 1,000 mls @ 84 mls/hr IV Q12H [facility] Last Admin: 05/15/18 14:30 Dose: 84 mls/hr Fat Emulsion Intravenous (Intralipid -) 250 mls @ 20.833 mls/hr IV DAILY@2200 [facility] Last Admin: 05/14/18 22:34 Dose: 20.833 mls/hr Levetiracetam (Keppra Injection -) 500 mg IVPB BID [facility] Last Admin: 05/15/18 10:10 Dose: 500 mg Levothyroxine Sodium (Synthroid Injection -) 130 mcg IVPUSH DAILY [facility] Last Admin: 05/15/18 11:26 Dose: 130 mcg Metoprolol Tartrate (Lopressor Injection -) 5 mg IVPB Q6H-IV [facility] Last Admin: 05/15/18 15:08 Dose: Not Given - Objective Vital Signs: Vital Signs Temperature 99.2 F 05/15/18 15:15 Pulse Rate 80 05/15/18 15:15 Respiratory Rate 21 H 05/15/18 15:25 Blood Pressure 107/69 05/15/18 15:15 O2 Sat by Pulse Oximetry (%) 99 05/14/18 21:06 Constitutional: Yes: Well Nourished, No Distress, Calm Eyes: Yes: Conjunctiva Clear, Other (nonfocal) HENT: Yes: Atraumatic, Normocephalic Neck: Yes: Supple, Other (trach/vent) Respiratory: Yes: Intubated (via tracheostomy), Mechanically Ventilated Gastrointestinal: Yes: Soft, Other (18Fr gastrostomy tube exchanged for Boucher catheter, 6ml balloon filled with water - by Dr. Dominguez at bedside - tube sits at 4.5cm at skin/granulation tissue, ~6cm at top of external bolster). No : Distention, Tenderness Genitourinary: Yes: Boucher Present (suprapubic cystostomy). No: Hematuria Extremities: Yes: External Rotation (BLE), Internal Rotation (BUE with spasms/ posturing). No: Cool, Cyanosis Integumentary: No: Erythema (no local reddening at g-tube site), Jaundice, Rash Wound/Incision: Yes: Dressing Dry and Intact, Dressing Removed (and drain sponge replaced) Neurological: Yes: Alert, Unresponsive (at baseline) Labs: CBC, BMP 05/15/18 07:00 05/15/18 07:00 Problem List - Problems (1) Dislodged gastrostomy tube Assessment/Plan: continue antibiotics per ID CT shows resolving inflammatory changes, no residual collection at G-tube site seen with Dr. Dominguez, GI, and Boucher replaced with balloon-type gastrostomy tube 18Fr potassium improved, still 3.6 follow labs/lytes continue Clinimix for now until tolerating TF to reconfirm gastric placement with XR, then may use tube for PO meds and feeds ok to resume Eliquis tomorrow discussed with Dr. Fitzgerald no surgical intervention required will sign off after ensuring tolerating tube use tomorrow Code(s): Z43.1 - ENCOUNTER FOR ATTENTION TO GASTROSTOMY (2) Gastrostomy tube dysfunction Code(s): K94.23 - GASTROSTOMY MALFUNCTION (3) Anoxic brain injury Code(s): G93.1 - ANOXIC BRAIN DAMAGE, NOT ELSEWHERE CLASSIFIED (4) Atrial fibrillation Code(s): I48.91 - UNSPECIFIED ATRIAL FIBRILLATION Qualifiers: Atrial fibrillation type: persistent Qualified Code(s): I48.1 - Persistent atrial fibrillation (5) Quadriplegia, functional Code(s): R53.2 - FUNCTIONAL QUADRIPLEGIA (6) Chronic respiratory failure Assessment/Plan: trach/vent dependent Code(s): J96.10 - CHRONIC RESPIRATORY FAILURE, UNSP W HYPOXIA OR HYPERCAPNIA Qualifiers: Respiratory failure complication: unspecified whether with hypoxia or hypercapnia Qualified Code(s): J96.10 - Chronic respiratory failure, unspecified whether with hypoxia or hypercapnia
--- NOTE | 2018-05-15 16:32 | PN ---
Progress Note (short form) - Note Progress Note: CT scan reviewed: improved appearance of previously noted fluid collection. Boucher taken out and exchanged with an 18 Fr. balloon replacement G-Tube. Balloon inflated with 5cc sterile water. Ordered bedside G-Tube study If G-Tube appears intraluminal, Ok to start feeds and meds Abx per ID ] Problem List - Problems (1) Dislodged gastrostomy tube Code(s): Z43.1 - ENCOUNTER FOR ATTENTION TO GASTROSTOMY
[2018-05-15] MEDS ORDERED: ALBUTEROL SO4 2.5/IPRATROPIUM 0.5 INH SOL 3 ML VIAL.NEB. NEB ONE (19:51)
[2018-05-15] MEDS: FAT EMULSIONS 250 ML IV SCH (22:15)
[2018-05-15] MEDS ORDERED: ACETAMINOPHEN 500 MG TABLET (FP) GT PRN (22:22)
[2018-05-16] MEDS ORDERED: PIPERACILLIN/TAZOBACTAM 3.375 GM VIAL IVPB ONE ×3 (02:37→14:56)
[2018-05-16] MEDS ORDERED: DEXTROSE 5%-WATER - 50 ML IVPB ONE ×3 (02:38→14:56)
[2018-05-16] MEDS: PIPERACILLIN/TAZOB 3.375 GM 3.375 GM in DEXTROSE 5%-WATER - 50 ML IVPB SCH ×3 (02:49→17:44)
[2018-05-16] MEDS ORDERED: LEVOTHYROXINE NA 100 MCG TABLET (FP) ONE (06:03)
[2018-05-16] MEDS ORDERED: LEVOTHYROXINE NA 75 MCG TABLET (FP) ONE (06:04)
[2018-05-16] MEDS: LEVOTHYROXINE 100 MCG, LEVOTHYROXINE 75 MCG GT SCH (06:33)
[2018-05-16] MEDS ORDERED: LEVOTHYROXINE NA 75 MCG TABLET (FP) GT SCH (07:00)
[2018-05-16 07:53] LABS: HEMATOCRIT 26.5 % (35.4-49); HEMOGLOBIN 8.9 GM/dL (11.7-16.9); MCH 30.9 pg (25.7-33.7); MCHC 33.7 g/dl (32.0-35.9); MEAN CELL VOLUME 91.5 fl (80-96); MEAN PLT VOLUME 8.5 fl (7.5-11.1); PLATELET COUNT 281 K/MM3 (134-434); RBC 2.89 M/mm3 (4.00-5.60); RDW 17.1 % (11.9-15.9); WHITE BLOOD COUNT 7.6 K/mm3 (4.0-10.0)
[2018-05-16] MEDS ORDERED: PT OWN MED DRAWER 7, Y5N ONE (09:02)
[2018-05-16] MEDS: AMIODARONE HCL 200 MG TABLET (FP) GT SCH (09:06)
[2018-05-16] MEDS: METOPROLOL TARTRATE 50 MG TABLET (FP) GT SCH ×2 (09:06→22:08)
[2018-05-16] MEDS: DIGOXIN 0.25 MG TABLET (FP) GT SCH (09:07)
[2018-05-16] MEDS: levETIRAcetam 500 MG/5 ML ORAL SOLUTION (UNIT-DOSE CUPS) GT SCH ×2 (09:07→22:08)
[2018-05-16] MEDS: APIXABAN 5 MG TABLET PO SCH ×2 (09:07→22:08)
[2018-05-16] MEDS: ARTIFICIAL TEARS (POLYVINYL ALCOHOL) OPTH DROPS OU SCH ×4 (09:09→22:07)
--- NOTE | 2018-05-16 10:23 | PN ---
Progress Note (short form) - Note Progress Note: Pt seen/examined at bedside. 18 Fr balloon G tube replaced yesterday at bedside by Dr. De Leon. G tube study confirms placement. Feeds started this am, and being used for medications. Tolerating well per nurse. On examination: Pt nonverbal, no acute distress Abd soft, no tenderness elicited, nondistended +gastrostomy in place, minimal/mild surrounding erythema CBC WBC 7.6 K/mm3 (4.0-10.0) 05/16/18 06:40 RBC 2.89 M/mm3 (4.00-5.60) L 05/16/18 06:40 Hgb 8.9 GM/dL (11.7-16.9) L 05/16/18 06:40 Hct 26.5 % (35.4-49) L 05/16/18 06:40 MCV 91.5 fl (80-96) 05/16/18 06:40 MCH 30.9 pg (25.7-33.7) 05/16/18 06:40 MCHC 33.7 g/dl (32.0-35.9) 05/16/18 06:40 RDW 17.1 % (11.9-15.9) H 05/16/18 06:40 Plt Count 281 K/MM3 (134-434) 05/16/18 06:40 MPV 8.5 fl (7.5-11.1) 05/16/18 06:40 Absolute Neuts (auto) 5.1 K/mm3 (1.5-8.0) 05/15/18 07:00 Neutrophils % 68.9 % (42.8-82.8) 05/15/18 07:00 Lymphocytes % 14.2 % (8-40) D 05/15/18 07:00 Monocytes % 6.6 % (3.8-10.2) 05/15/18 07:00 Eosinophils % 9.6 % (0-4.5) H 05/15/18 07:00 Basophils % 0.7 % (0-2.0) 05/15/18 07:00 Nucleated RBC % 0 % (0-0) 05/15/18 07:00 Assessment/plan: 63yo [place] for PEG malfunction s/p replacement with 18Fr gastrostomy yesterday. G tube study confirmed placement, feeds and meds started , tolerating well. -Continue tube feeds, titrating to goal, as tolerated -Continue antibiotics and follow up ID recommendations Please notify GI if any concerns/questions.
[2018-05-16 10:39] LABS: ANION GAP 10 MMOL/L (8-16); BLOOD UREA NITROGEN 19 mg/dL (7-18); CALCIUM 8.6 mg/dL (8.5-10.1); CHLORIDE 108 mmol/L (98-107); CO2 24 mmol/L (21-32); CREATININE 0.6 mg/dL (0.55-1.3); GLUCOSE,RANDOM 104 mg/dL (74-106); POTASSIUM 3.3 mmol/L (3.5-5.1); SODIUM 142 mmol/L (136-145)
--- NOTE | 2018-05-16 12:06 | PN ---
Progress Note (short form) - Note Progress Note: peg placed no distress awake loose stools+ Vital Signs - 24 hr 05/15/18 05/15/18 05/15/18 12:08 15:08 15:15 Temperature 99.2 F Pulse Rate 80 80 Respiratory 18 20 Rate Blood Pressure 107/69 O2 Sat by Pulse Oximetry (%) 05/15/18 05/15/18 05/15/18 15:25 18:15 18:54 Temperature 98.5 F Pulse Rate 98 H Respiratory 21 H 16 16 Rate Blood Pressure 104/75 O2 Sat by Pulse Oximetry (%) 05/15/18 05/15/18 05/15/18 21:00 21:17 21:39 Temperature Pulse Rate 80 Respiratory 18 22 H Rate Blood Pressure O2 Sat by Pulse 98 Oximetry (%) 05/15/18 05/16/18 05/16/18 23:00 00:10 00:12 Temperature Pulse Rate 83 80 Respiratory 16 18 Rate Blood Pressure 120/51 L O2 Sat by Pulse 100 Oximetry (%) 05/16/18 05/16/18 05/16/18 02:00 04:05 06:00 Temperature 98.4 F 99.5 F Pulse Rate 85 106 H Respiratory 18 20 18 Rate Blood Pressure 121/51 L 157/92 O2 Sat by Pulse Oximetry (%) 05/16/18 05/16/18 07:03 09:07 Temperature Pulse Rate 88 Respiratory 18 Rate Blood Pressure O2 Sat by Pulse Oximetry (%) Current Medications Generic Name Dose Route Start Last Admin Trade Name Freq PRN Reason Stop Dose Admin Acetaminophen 500 mg 05/15/18 22:22 Tylenol - GT Q6H PRN PAIN Amiodarone HCl 200 mg 05/16/18 10:00 05/16/18 09:06 Cordarone - GT 200 mg DAILY [facility] Administration Apixaban 5 mg 05/16/18 10:00 05/16/18 09:07 Eliquis - PO 5 mg BID [facility]US Administration Artificial Tears 1 drop 05/10/18 10:00 05/16/18 09:09 Artificial Tears OU 1 drop QID [facility] Administration Digoxin 0.25 mg 05/16/18 10:00 05/16/18 09:07 Lanoxin - GT 0.25 mg DAILY [facility] Administration Piperacillin Sod/Tazobactam 50 mls @ 100 mls/hr 05/10/18 13:00 05/16/18 09:08 Sod 3.375 gm/ Dextrose IVPB 100 mls/hr Q8H-IV [facility] Administration Protocol Levetiracetam 500 mg 05/16/18 10:00 05/16/18 09:07 Keppra Oral Solution - GT 500 mg BID [facility]US Administration Levothyroxine Sodium 100 mcg/ 175 mcg 05/16/18 07:00 05/16/18 06:33 Levothyroxine Sodium 75 mcg GT 175 mcg DAILY@0700 [facility] Administration Metoprolol Tartrate 50 mg 05/16/18 10:00 05/16/18 09:06 Lopressor - GT 50 mg BID [facility] Administration Laboratory Results - last 24 hr 05/16/18 05/16/18 06:40 06:40 WBC 7.6 RBC 2.89 L Hgb 8.9 L Hct 26.5 L MCV 91.5 MCH 30.9 MCHC 33.7 RDW 17.1 H Plt Count 281 MPV 8.5 Sodium 142 Potassium 3.3 L Chloride 108 H Carbon Dioxide 24 Anion Gap 10 BUN 19 H Creatinine 0.6 Creat Clearance w eGFR > 60 Random Glucose 104 Calcium 8.6 S1 S2 Irregular Lungs decreased trach- vent Abd-- soft,erythema + NT, peg_+site has less erythema trace edema PLAN continue with iv antibiotic ,on feeds-- may need to change due to diarrhea will resume gt meds Problem List - Problems (1) Gastrostomy tube dysfunction Code(s): K94.23 - GASTROSTOMY MALFUNCTION (2) Hepatitis C carrier Code(s): Z22.52 - (3) Mitral valve prolapse Code(s): I34.1 - NONRHEUMATIC MITRAL (VALVE) PROLAPSE (4) Anoxic brain injury Code(s): G93.1 - ANOXIC BRAIN DAMAGE, NOT ELSEWHERE CLASSIFIED (5) Atrial fibrillation Code(s): I48.91 - UNSPECIFIED ATRIAL FIBRILLATION Qualifiers: Atrial fibrillation type: persistent Qualified Code(s): I48.1 - Persistent atrial fibrillation (6) Chronic respiratory failure Code(s): J96.10 - CHRONIC RESPIRATORY FAILURE, UNSP W HYPOXIA OR HYPERCAPNIA Qualifiers: Respiratory failure complication: unspecified whether with hypoxia or hypercapnia Qualified Code(s): J96.10 - Chronic respiratory failure, unspecified whether with hypoxia or hypercapnia (7) Quadriplegia, functional Code(s): R53.2 - FUNCTIONAL QUADRIPLEGIA
--- NOTE | 2018-05-16 13:07 | PN ---
Progress Note, Physician History of Present Illness: stable no new issue foleys in the tract - Current Medication List Current Medications: Active Medications Acetaminophen (Tylenol -) 500 mg GT Q6H PRN PRN Reason: PAIN Amiodarone HCl (Cordarone -) 200 mg GT DAILY [facility] Last Admin: 05/16/18 09:06 Dose: 200 mg Apixaban (Eliquis -) 5 mg PO BID [facility] Last Admin: 05/16/18 09:07 Dose: 5 mg Artificial Tears (Artificial Tears) 1 drop OU QID [facility] Last Admin: 05/16/18 09:09 Dose: 1 drop Collagenase (Santyl -) 1 applic TP DAILY [facility]; Protocol Digoxin (Lanoxin -) 0.25 mg GT DAILY [facility] Last Admin: 05/16/18 09:07 Dose: 0.25 mg Piperacillin Sod/Tazobactam (Sod 3.375 gm/ Dextrose) 50 mls @ 100 mls/hr IVPB Q8H-IV [facility]; Protocol Last Admin: 05/16/18 09:08 Dose: 100 mls/hr Lactobacillus Acidophilus (Bacid -) 1 tab GT DAILY [facility] Levetiracetam (Keppra Oral Solution -) 500 mg GT BID [facility] Last Admin: 05/16/18 09:07 Dose: 500 mg Levothyroxine Sodium 100 mcg/ (Levothyroxine Sodium 75 mcg) 175 mcg GT DAILY@ 0700 [facility] Last Admin: 05/16/18 06:33 Dose: 175 mcg Metoprolol Tartrate (Lopressor -) 50 mg GT BID [facility] Last Admin: 05/16/18 09:06 Dose: 50 mg - Objective Vital Signs: Vital Signs Temperature 99.5 F 05/16/18 06:00 Pulse Rate 88 05/16/18 09:07 Respiratory Rate 18 05/16/18 07:03 Blood Pressure 157/92 05/16/18 06:00 O2 Sat by Pulse Oximetry (%) 100 05/16/18 00:12 Constitutional: Yes: No Distress, Calm Cardiovascular: Yes: S1, S2 Respiratory: Yes: Mechanically Ventilated Gastrointestinal: Yes: Normal Bowel Sounds, Soft, Other (site looks good) Musculoskeletal: Yes: WNL Extremities: Yes: WNL Neurological: Yes: Alert, Other Labs: CBC, BMP 05/16/18 06:40 05/16/18 06:40 INR, PTT INR 1.28 (0.83-1.09) H 05/09/18 15:34 - ....Imaging Cat Scan: Report Reviewed, Image Reviewed Assessment/Plan 63 m hx afib, syst chf, ex drug abuse, cardiac arrest with anoxic brain injury and trach, suprapubic catheter, hcv, sent [place] for erythema near g tube. erythema of the ge tube site abscess of the g tube site induration of the site resp failure vented plan will continue abx ct clinimax untill final decision is made rest as per gi and the team
[2018-05-16] MEDS: LACTOBACILLUS ACIDOPHILUS 1 TABLET GT SCH (15:01)
[2018-05-16] MEDS: COLLAGENASE CLOSTRIDIUM HIST. 30 GRAMS TUBE TP SCH (15:01)
[2018-05-17] MEDS ORDERED: PIPERACILLIN/TAZOBACTAM 3.375 GM VIAL IVPB ONE ×3 (02:04→17:52)
[2018-05-17] MEDS ORDERED: DEXTROSE 5%-WATER - 50 ML IVPB ONE ×3 (02:04→17:52)
[2018-05-17] MEDS: PIPERACILLIN/TAZOB 3.375 GM 3.375 GM in DEXTROSE 5%-WATER - 50 ML IVPB SCH ×3 (02:34→17:59)
[2018-05-17] MEDS ORDERED: LEVOTHYROXINE NA 100 MCG TABLET (FP) ONE (06:04)
[2018-05-17] MEDS ORDERED: LEVOTHYROXINE NA 75 MCG TABLET (FP) ONE (06:04)
[2018-05-17] MEDS: LEVOTHYROXINE 100 MCG, LEVOTHYROXINE 75 MCG GT SCH (06:18)
[2018-05-17] MEDS: ARTIFICIAL TEARS (POLYVINYL ALCOHOL) OPTH DROPS OU SCH ×4 (10:56→22:05)
[2018-05-17] MEDS: COLLAGENASE CLOSTRIDIUM HIST. 30 GRAMS TUBE TP SCH (10:59)
[2018-05-17] MEDS ORDERED: PT OWN MED DRAWER 7, Y5N ONE ×2 (11:00→22:02)
[2018-05-17] MEDS: METOPROLOL TARTRATE 50 MG TABLET (FP) GT SCH ×2 (11:08→22:06)
[2018-05-17] MEDS: AMIODARONE HCL 200 MG TABLET (FP) GT SCH (11:08)
[2018-05-17] MEDS: APIXABAN 5 MG TABLET PO SCH (11:09)
[2018-05-17] MEDS: levETIRAcetam 500 MG/5 ML ORAL SOLUTION (UNIT-DOSE CUPS) GT SCH ×2 (11:09→22:05)
[2018-05-17] MEDS: LACTOBACILLUS ACIDOPHILUS 1 TABLET GT SCH (11:09)
[2018-05-17] MEDS: DIGOXIN 0.25 MG TABLET (FP) GT SCH (11:10)
--- NOTE | 2018-05-17 12:05 | PN ---
Progress Note (short form) - Note Progress Note: peg placed no distress awake no loose stools when feeding stopped Vital Signs - 24 hr 05/16/18 05/16/18 05/16/18 15:40 18:30 19:10 Temperature Pulse Rate 100 H Respiratory 18 18 25 H Rate Blood Pressure 120/84 O2 Sat by Pulse Oximetry (%) 05/16/18 05/16/18 05/16/18 20:44 21:00 22:00 Temperature Pulse Rate 98 H Respiratory 24 H 22 H 16 Rate Blood Pressure 120/78 O2 Sat by Pulse 97 Oximetry (%) 05/16/18 05/17/18 05/17/18 23:43 02:00 02:15 Temperature 99.1 F Pulse Rate 84 Respiratory 22 H 18 15 Rate Blood Pressure 99/55 L O2 Sat by Pulse Oximetry (%) 05/17/18 05/17/18 05/17/18 05:15 06:00 10:41 Temperature 98.4 F Pulse Rate 86 Respiratory 14 14 17 Rate Blood Pressure 119/61 O2 Sat by Pulse Oximetry (%) 05/17/18 11:10 Temperature Pulse Rate 84 Respiratory Rate Blood Pressure O2 Sat by Pulse Oximetry (%) Current Medications Generic Name Dose Route Start Last Admin Trade Name Freq PRN Reason Stop Dose Admin Acetaminophen 500 mg 05/15/18 22:22 Tylenol - GT Q6H PRN PAIN Amiodarone HCl 200 mg 05/16/18 10:00 05/17/18 11:08 Cordarone - GT 200 mg DAILY [facility] Administration Apixaban 5 mg 05/16/18 10:00 05/17/18 11:09 Eliquis - PO 5 mg BID [facility] Administration Artificial Tears 1 drop 05/10/18 10:00 05/16/18 22:07 Artificial Tears OU 1 drop QID [facility] Administration Collagenase 1 applic 05/16/18 12:30 05/16/18 15:01 Santyl - TP 1 applic DAILY [facility] Administration Protocol Digoxin 0.25 mg 05/16/18 10:00 05/17/18 11:10 Lanoxin - GT 0.25 mg DAILY [facility] Administration Piperacillin Sod/Tazobactam 50 mls @ 100 mls/hr 05/10/18 13:00 05/17/18 11:08 Sod 3.375 gm/ Dextrose IVPB 100 mls/hr Q8H-IV [facility] Administration Protocol Lactobacillus Acidophilus 1 tab 05/16/18 12:15 05/17/18 11:09 Bacid - GT 1 tab DAILY [facility] Administration Levetiracetam 500 mg 05/16/18 10:00 05/17/18 11:09 Keppra Oral Solution - GT 500 mg BID [facility] Administration Levothyroxine Sodium 100 mcg/ 175 mcg 05/16/18 07:00 05/17/18 06:18 Levothyroxine Sodium 75 mcg GT 175 mcg DAILY@0700 [facility] Administration Metoprolol Tartrate 50 mg 05/16/18 10:00 05/17/18 11:08 Lopressor - GT 50 mg BID [facility] Administration S1 S2 Irregular Lungs decreased trach- vent Abd-- soft,erythema + NT, peg_+site has less erythema trace edema PLAN continue with iv antibiotic - change to PO Augmentin in AM and may be dc to NH as per ID As per surgeon-- thinks the diarrhea is due to contrast from Ct scan feedings on hold but will resume it- if still he has diarrhea , will change feeds continue meds Problem List - Problems (1) Gastrostomy tube dysfunction Code(s): K94.23 - GASTROSTOMY MALFUNCTION (2) Hepatitis C carrier Code(s): Z22.52 - (3) Mitral valve prolapse Code(s): I34.1 - NONRHEUMATIC MITRAL (VALVE) PROLAPSE (4) Anoxic brain injury Code(s): G93.1 - ANOXIC BRAIN DAMAGE, NOT ELSEWHERE CLASSIFIED (5) Atrial fibrillation Code(s): I48.91 - UNSPECIFIED ATRIAL FIBRILLATION Qualifiers: Atrial fibrillation type: persistent Qualified Code(s): I48.1 - Persistent atrial fibrillation (6) Chronic respiratory failure Code(s): J96.10 - CHRONIC RESPIRATORY FAILURE, UNSP W HYPOXIA OR HYPERCAPNIA Qualifiers: Respiratory failure complication: unspecified whether with hypoxia or hypercapnia Qualified Code(s): J96.10 - Chronic respiratory failure, unspecified whether with hypoxia or hypercapnia (7) Quadriplegia, functional Code(s): R53.2 - FUNCTIONAL QUADRIPLEGIA
--- NOTE | 2018-05-17 15:57 | PN ---
Progress Note, Physician History of Present Illness: 63yo male PMH HTN, Afib on eliquis, COPD, hep C, hypothyroidism, CAD s/p HI with anoxic brain injury almost a year ago, s/p trach, PEG (last June or July at [facility]), suprapubic cystostomy was sent in from [facility] for redness and firmness around PEG site concerning for cellulitis. Found to have mushroom bolster of PEG in subcutaneous tissue/muscle layer with collection beneath it. Feed stoped yesterday for diarrhea, feeds restarted via PEG today (below calculated goal). - Current Medication List Current Medications: Active Medications Acetaminophen (Tylenol -) 500 mg GT Q6H PRN PRN Reason: PAIN Last Admin: 05/17/18 15:02 Dose: 500 mg Amiodarone HCl (Cordarone -) 200 mg GT DAILY [facility] Last Admin: 05/17/18 11:08 Dose: 200 mg Apixaban (Eliquis -) 5 mg PO BID [facility] Last Admin: 05/17/18 11:09 Dose: 5 mg Artificial Tears (Artificial Tears) 1 drop OU QID [facility] Last Admin: 05/16/18 22:07 Dose: 1 drop Collagenase (Santyl -) 1 applic TP DAILY [facility]; Protocol Last Admin: 05/16/18 15:01 Dose: 1 applic Digoxin (Lanoxin -) 0.25 mg GT DAILY [facility] Last Admin: 05/17/18 11:10 Dose: 0.25 mg Piperacillin Sod/Tazobactam (Sod 3.375 gm/ Dextrose) 50 mls @ 100 mls/hr IVPB Q8H-IV [facility]; Protocol Last Admin: 05/17/18 11:08 Dose: 100 mls/hr Lactobacillus Acidophilus (Bacid -) 1 tab GT DAILY [facility] Last Admin: 05/17/18 11:09 Dose: 1 tab Levetiracetam (Keppra Oral Solution -) 500 mg GT BID [facility] Last Admin: 05/17/18 11:09 Dose: 500 mg Levothyroxine Sodium 100 mcg/ (Levothyroxine Sodium 75 mcg) 175 mcg GT DAILY@ 0700 [facility] Last Admin: 05/17/18 06:18 Dose: 175 mcg Metoprolol Tartrate (Lopressor -) 50 mg GT BID [facility] Last Admin: 05/17/18 11:08 Dose: 50 mg - Objective Vital Signs: Vital Signs Temperature 100.5 F H 05/17/18 14:50 Pulse Rate 80 05/17/18 14:50 Respiratory Rate 16 05/17/18 14:50 Blood Pressure 132/63 05/17/18 14:50 O2 Sat by Pulse Oximetry (%) 97 05/16/18 21:00 Vital Signs Period Temp Pulse Resp BP Sys/Bhardwaj Pulse Ox Last 24 Hr 98.4 F-100.5 F 80-98 14-25 99-132/55-80 97 Intake & Output 05/17/18 05/17/18 05/17/18 07:59 15:59 23:59 Intake Total 50 0 Output Total 200 200 Balance -150 -200 0 Intake: IVPB 50 Oral 0 Output: Urine 200 200 Boucher 200 200 Other: Voiding Method Ileal Conduit (Right) Indwelling Catheter Bowel Movement Yes: small No Constitutional: Yes: No Distress, Calm, Thin Eyes: Yes: Conjunctiva Clear, EOM Intact HENT: Yes: Atraumatic, Normocephalic, Drooling Neck: Yes: Trachea Midline, Other (tracheostomy) Cardiovascular: Yes: Pulse Irregular, S1, S2 Respiratory: Yes: Regular, Mechanically Ventilated, Rhonchi Gastrointestinal: Yes: Normal Bowel Sounds, Soft, Other (PEG RUQ function ing feeds at 30ml/hr) ...Rectal Exam: Yes: Deferred Genitourinary: Yes: Boucher Present (suprapubic). No: CVA Tenderness - Left, CVA Tenderness - Right Musculoskeletal: Yes: Other (stiffness) Extremities: No: Cool, Cyanosis Peripheral Pulses WNL: Yes Peripheral Pulses: Left Doralis Pedis: 2+, Right Dorsalis Pedis: 2+ Integumentary: Yes: Pressure Ulcer. No: Incision, Jaundice Neurological: Yes: Alert, Other (decorticate psturing). No: Oriented Psychiatric: Yes: Alert. No: Oriented Labs: CBC, BMP 05/16/18 06:40 05/16/18 06:40 INR, PTT INR 1.28 (0.83-1.09) H 05/09/18 15:34 Problem List - Problems (1) Dislodged gastrostomy tube Assessment/Plan: Replaced Gastrostomy, cellulitis is resolved. Site appears well. No further diarrhea noted, having excess airway secretions. Very low index of suspicion for aspiration of feeds. No further need for surgical intervention. regular suctioning and tracheostomy care continue aspiration precautions HOB 30 degrees Resume feed to calculated goal nutrition evaluation Please recall as needed Code(s): Z43.1 - ENCOUNTER FOR ATTENTION TO GASTROSTOMY (2) Alcohol dependence Code(s): F10.20 - ALCOHOL DEPENDENCE, UNCOMPLICATED (3) Hepatitis C carrier Code(s): Z22.52 - (4) Mitral valve prolapse Code(s): I34.1 - NONRHEUMATIC MITRAL (VALVE) PROLAPSE (5) Seizure Code(s): R56.9 - UNSPECIFIED CONVULSIONS (6) Anoxic brain injury Code(s): G93.1 - ANOXIC BRAIN DAMAGE, NOT ELSEWHERE CLASSIFIED (7) Chronic respiratory failure Code(s): J96.10 - CHRONIC RESPIRATORY FAILURE, UNSP W HYPOXIA OR HYPERCAPNIA Qualifiers: Respiratory failure complication: unspecified whether with hypoxia or hypercapnia Qualified Code(s): J96.10 - Chronic respiratory failure, unspecified whether with hypoxia or hypercapnia (8) Condylomata acuminata in male Code(s): A63.0 - ANOGENITAL (VENEREAL) WARTS (9) Quadriplegia, functional Code(s): R53.2 - FUNCTIONAL QUADRIPLEGIA (10) Sacral pressure ulcer Code(s): L89.159 - PRESSURE ULCER OF SACRAL REGION, UNSPECIFIED STAGE (11) Transaminitis Code(s): R74.0 - NONSPEC ELEV OF LEVELS OF TRANSAMNS & LACTIC ACID DEHYDRGNSE (12) UTI (urinary tract infection) Code(s): N39.0 - URINARY TRACT INFECTION, SITE NOT SPECIFIED Qualifiers: Urinary tract infection type: site unspecified Hematuria presence: without hematuria Qualified Code(s): N39.0 - Urinary tract infection, site not specified
--- NOTE | 2018-05-17 16:17 | PN ---
Progress Note, Physician History of Present Illness: patient had marcela hematuria continues to be on vent support - Current Medication List Current Medications: Active Medications Acetaminophen (Tylenol -) 500 mg GT Q6H PRN PRN Reason: PAIN Last Admin: 05/17/18 15:02 Dose: 500 mg Amiodarone HCl (Cordarone -) 200 mg GT DAILY [facility] Last Admin: 05/17/18 11:08 Dose: 200 mg Apixaban (Eliquis -) 5 mg PO BID [facility] Last Admin: 05/17/18 11:09 Dose: 5 mg Artificial Tears (Artificial Tears) 1 drop OU QID [facility] Last Admin: 05/16/18 22:07 Dose: 1 drop Collagenase (Santyl -) 1 applic TP DAILY [facility]; Protocol Last Admin: 05/16/18 15:01 Dose: 1 applic Digoxin (Lanoxin -) 0.25 mg GT DAILY [facility] Last Admin: 05/17/18 11:10 Dose: 0.25 mg Piperacillin Sod/Tazobactam (Sod 3.375 gm/ Dextrose) 50 mls @ 100 mls/hr IVPB Q8H-IV [facility]; Protocol Last Admin: 05/17/18 11:08 Dose: 100 mls/hr Lactobacillus Acidophilus (Bacid -) 1 tab GT DAILY [facility] Last Admin: 05/17/18 11:09 Dose: 1 tab Levetiracetam (Keppra Oral Solution -) 500 mg GT BID [facility] Last Admin: 05/17/18 11:09 Dose: 500 mg Levothyroxine Sodium 100 mcg/ (Levothyroxine Sodium 75 mcg) 175 mcg GT DAILY@ 0700 [facility] Last Admin: 05/17/18 06:18 Dose: 175 mcg Metoprolol Tartrate (Lopressor -) 50 mg GT BID [facility] Last Admin: 05/17/18 11:08 Dose: 50 mg - Objective Vital Signs: Vital Signs Temperature 100.5 F H 05/17/18 14:50 Pulse Rate 80 05/17/18 14:50 Respiratory Rate 16 05/17/18 14:50 Blood Pressure 132/63 05/17/18 14:50 O2 Sat by Pulse Oximetry (%) 97 05/16/18 21:00 Constitutional: Yes: No Distress Cardiovascular: Yes: S1, S2 Respiratory: Yes: Regular, Mechanically Ventilated, Other (trach) Gastrointestinal: Yes: Normal Bowel Sounds, Soft, Other (peg in place) Genitourinary: Yes: Boucher Present (suprapubic) Musculoskeletal: Yes: WNL Extremities: Yes: Other Neurological: Yes: Alert, Other Labs: CBC, BMP 05/16/18 06:40 05/16/18 06:40 INR, PTT INR 1.28 (0.83-1.09) H 05/09/18 15:34 Assessment/Plan 63 m hx afib, syst chf, ex drug abuse, cardiac arrest with anoxic brain injury and trach, suprapubic catheter, hcv, sent from ct for erythema near g tube. erythema of the ge tube site abscess of the g tube site induration of the site resp failure vented plan continue abx for now monitor hematuria if patient stable then can switch to oral abx
--- NOTE | 2018-05-17 16:28 | PN ---
Progress Note (short form) - Note Progress Note: s: non communicative o: Vital Signs Period Temp Pulse Resp BP Sys/Bhardwaj Pulse Ox Last 24 Hr 98.4 F-100.5 F 80-100 14-25 99-132/55-84 97 nad no jvd rr, irreg s1s2 no mrg cta bl ant, trached abd nd pos bs no jaundice diaphoresis no le e/c/c non communicative Current Medications Acetaminophen (Tylenol -) 500 mg GT Q6H PRN PRN Reason: PAIN Last Admin: 05/17/18 15:02 Dose: 500 mg Amiodarone HCl (Cordarone -) 200 mg GT DAILY [facility] Last Admin: 05/17/18 11:08 Dose: 200 mg Apixaban (Eliquis -) 5 mg PO BID [facility] Last Admin: 05/17/18 11:09 Dose: 5 mg Artificial Tears (Artificial Tears) 1 drop OU QID [facility] Last Admin: 05/16/18 22:07 Dose: 1 drop Collagenase (Santyl -) 1 applic TP DAILY [facility]; Protocol Last Admin: 05/16/18 15:01 Dose: 1 applic Digoxin (Lanoxin -) 0.25 mg GT DAILY [facility] Last Admin: 05/17/18 11:10 Dose: 0.25 mg Piperacillin Sod/Tazobactam (Sod 3.375 gm/ Dextrose) 50 mls @ 100 mls/hr IVPB Q8H-IV [facility]; Protocol Last Admin: 05/17/18 11:08 Dose: 100 mls/hr Lactobacillus Acidophilus (Bacid -) 1 tab GT DAILY [facility] Last Admin: 05/17/18 11:09 Dose: 1 tab Levetiracetam (Keppra Oral Solution -) 500 mg GT BID [facility] Last Admin: 05/17/18 11:09 Dose: 500 mg Levothyroxine Sodium 100 mcg/ (Levothyroxine Sodium 75 mcg) 175 mcg GT DAILY@ 0700 [facility] Last Admin: 05/17/18 06:18 Dose: 175 mcg Metoprolol Tartrate (Lopressor -) 50 mg GT BID [facility] Last Admin: 05/17/18 11:08 Dose: 50 mg cxr: mild chf, r infiltrate ecg: afib, rate ok, no ischemic changes echo 08/2017: mod-sev dec lvef, global hk, nl rv, no sig valve path a/p: 63 m hx afib, syst chf, ex drug abuse, cardiac arrest with anoxic brain injury and trach, suprapubic catheter, hcv, sent from [place] for erythema near g tube. malfunctioning g-tube: - s/p replacement of G-tube, manage per surgery afib: -rate controlled, continue amio 200, lopressor 50 bid, and digoxin -ac was on hold 2/2 hematoma near g-tube site, now restarted, continue chronic syst chf: -stable, appears euvolemic - restart home lasix on discharge hypothyroid: -tsh elevated, management per pmd
[2018-05-17 18:53] LABS: EOS % 9.6 % (0-4.5); HEMATOCRIT 29.9 % (35.4-49); HEMOGLOBIN 9.8 GM/dL (11.7-16.9); MCH 30.4 pg (25.7-33.7); MCHC 32.8 g/dl (32.0-35.9); MEAN CELL VOLUME 92.6 fl (80-96); MONO % 6.1 % (3.8-10.2); NEUT % 66.3 % (42.8-82.8); PLATELET COUNT 286 K/MM3 (134-434); RBC 3.22 M/mm3 (4.00-5.60); RDW 17.4 % (11.9-15.9); WHITE BLOOD COUNT 7.9 K/mm3 (4.0-10.0)
[2018-05-18] MEDS ORDERED: PIPERACILLIN/TAZOBACTAM 3.375 GM VIAL IVPB ONE ×2 (00:37→13:04)
[2018-05-18] MEDS ORDERED: DEXTROSE 5%-WATER - 50 ML IVPB ONE ×2 (00:37→13:04)
[2018-05-18] MEDS: PIPERACILLIN/TAZOB 3.375 GM 3.375 GM in DEXTROSE 5%-WATER - 50 ML IVPB SCH ×2 (02:13→11:05)
[2018-05-18] MEDS ORDERED: LEVOTHYROXINE NA 100 MCG TABLET (FP) ONE (05:28)
[2018-05-18] MEDS ORDERED: LEVOTHYROXINE NA 75 MCG TABLET (FP) ONE (05:28)
[2018-05-18] MEDS: LEVOTHYROXINE 100 MCG, LEVOTHYROXINE 75 MCG GT SCH (06:31)
[2018-05-18 10:23] LABS: BASO % 0.7 % (0-2.0); EOS % 11.4 % (0-4.5); HEMATOCRIT 27.7 % (35.4-49); HEMOGLOBIN 9.1 GM/dL (11.7-16.9); LYMPH % 19.2 % (8-40); MCH 30.3 pg (25.7-33.7); MCHC 32.9 g/dl (32.0-35.9); MEAN PLT VOLUME 8.8 fl (7.5-11.1); MONO % 6.3 % (3.8-10.2); NEUT % 62.4 % (42.8-82.8); PLATELET COUNT 254 K/MM3 (134-434); RBC 3.01 M/mm3 (4.00-5.60); RDW 17.8 % (11.9-15.9); WHITE BLOOD COUNT 6.2 K/mm3 (4.0-10.0)
--- NOTE | 2018-05-18 10:52 | DS ---
Physical Examination Vital Signs: Vital Signs Temperature 98.4 F 05/17/18 18:32 Pulse Rate 56 L 05/18/18 01:16 Respiratory Rate 18 05/18/18 09:54 Blood Pressure 109/56 L 05/17/18 22:00 O2 Sat by Pulse Oximetry (%) 99 05/18/18 01:16 Findings/Remarks: pt seen/ examined chart reviewed awake/ comfortable no distress urine clear Eliquis was held last night due to concern of hematurea h/h stable no diarrhea today Constitutional: Yes: No Distress Cardiovascular: Yes: Regular Rate and Rhythm Respiratory: Yes: Diminished Gastrointestinal: Yes: Soft Edema: No Labs: CBC, BMP 05/18/18 09:32 Discharge Summary Reason For Visit: GASTROSTOMY TUBE DYSFUNCTION Current Active Problems Dislodged gastrostomy tube (Acute) Gastrostomy tube dysfunction (Acute) Infection of PEG site (Acute) Hospital Course: 63 year old male with multiple medical problems including quadraplegia with suprapubic catheter, 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 treated with abx much better g tube replaced surgery/ i/d followed stable for d/c to [facility] on po abx restart eliquis with caution discussed with [employer]/ nursing staff Meds reconcilled Condition: Stable - Instructions Referrals: Guanakito Suarez MD [Primary Care Provider] - Disposition: [facility] - Home Medications Comprehensive Discharge Medication List: Ambulatory Orders Acetaminophen [Tylenol .Extra-Strength -] 500 mg GT Q6H PRN 07/31/17 Hypromellose 0.5% Opth Soln [Artificial Tears] 1 drop OU QID 07/31/17 Metoprolol Tartrate [Lopressor -] 50 mg GT BID #60 tablet 08/10/17 Amiodarone HCl [Cordarone -] 200 mg GT DAILY 10/24/17 Apixaban [Eliquis -] 5 mg GT BID 10/24/17 Collagenase Clostridium Hist. [Santyl -] 1 applic TP TID PRN 10/24/17 Digoxin [Lanoxin -] 0.25 mg GT DAILY 10/24/17 Furosemide [Lasix -] 40 mg GT DAILY 10/24/17 Potassium Chloride [Potassium Chloride Oral Liquid] 20 meq GT DAILY 10/24/17 Zinc Oxide 20% Topical Oint 454 gm NR BID PRN 10/24/17 Albuterol 2.5/Ipratropium 0.5 [Duoneb -] 1 amp NEB TID 03/09/18 Ergocalciferol (Vitamin D2) [Calcidol] 6.25 ml PO WEEKLY 03/09/18 Mupirocin Ointment [Bactroban 2% Ointment -] 1 applic TP BID 03/09/18 Lactobacillus Acidophilus [Bacid -] 1 tab GT BID tab 03/12/18 Levothyroxine [Synthroid -] 150 mcg GT DAILY@0700 05/09/18 Amoxicillin/Potassium Clav [Augmentin 875-125 Tablet] 1 each PO BID 5 Days #10 tablet 05/18/18 Collagenase Clostridium Hist. [Santyl -] 1 applic TP DAILY tube 05/18/18 levETIRAcetam [Keppra Oral Solution -] 500 mg GT BID cup 05/18/18 levETIRAcetam [Keppra Oral Solution -] 750 mg GT BID #1 bottle 05/18/18
[2018-05-18] MEDS: LACTOBACILLUS ACIDOPHILUS 1 TABLET GT SCH (11:06)
[2018-05-18] MEDS: AMIODARONE HCL 200 MG TABLET (FP) GT SCH (11:06)
[2018-05-18] MEDS: levETIRAcetam 500 MG/5 ML ORAL SOLUTION (UNIT-DOSE CUPS) GT SCH (11:07)
[2018-05-18 11:23] LABS: ALBUMIN 2.7 g/dl (3.4-5.0); ALK PHOS 67 U/L (45-117); ANION GAP 6 MMOL/L (8-16); BILIRUBIN,TOTAL 0.5 mg/dL (0.2-1); BLOOD UREA NITROGEN 21 mg/dL (7-18); CALCIUM 8.7 mg/dL (8.5-10.1); CHLORIDE 111 mmol/L (98-107); CO2 27 mmol/L (21-32); CREATININE 0.7 mg/dL (0.55-1.3); GLUCOSE,RANDOM 119 mg/dL (74-106); POTASSIUM 3.5 mmol/L (3.5-5.1); SGOT/AST 20 U/L (15-37); SGPT/ALT 17 U/L (13-61); SODIUM 143 mmol/L (136-145); TOT PROT 7.7 g/dl (6.4-8.2)
[2018-05-18] MEDS: METOPROLOL TARTRATE 50 MG TABLET (FP) GT SCH (12:06)
[2018-05-18] MEDS: DIGOXIN 0.25 MG TABLET (FP) GT SCH (12:07)
[2018-05-18] MEDS: ARTIFICIAL TEARS (POLYVINYL ALCOHOL) OPTH DROPS OU SCH ×3 (13:07→17:48)
--- NOTE | 2018-05-18 14:11 | PN ---
Progress Note, Physician History of Present Illness: patient stable no more hematuria - Current Medication List Current Medications: Active Medications Acetaminophen (Tylenol -) 500 mg GT Q6H PRN PRN Reason: PAIN Last Admin: 05/17/18 15:02 Dose: 500 mg Amiodarone HCl (Cordarone -) 200 mg GT DAILY [facility] Last Admin: 05/18/18 11:06 Dose: 200 mg Artificial Tears (Artificial Tears) 1 drop OU QID [facility] Last Admin: 05/18/18 13:07 Dose: 1 drop Collagenase (Santyl -) 1 applic TP DAILY [facility]; Protocol Last Admin: 05/17/18 10:59 Dose: 1 applic Digoxin (Lanoxin -) 0.25 mg GT DAILY [facility] Last Admin: 05/18/18 12:07 Dose: 0.25 mg Piperacillin Sod/Tazobactam (Sod 3.375 gm/ Dextrose) 50 mls @ 100 mls/hr IVPB Q8H-IV [facility]; Protocol Last Admin: 05/18/18 11:05 Dose: 100 mls/hr Lactobacillus Acidophilus (Bacid -) 1 tab GT DAILY [facility] Last Admin: 05/18/18 11:06 Dose: 1 tab Levetiracetam (Keppra Oral Solution -) 500 mg GT BID [facility] Last Admin: 05/18/18 11:07 Dose: 500 mg Levothyroxine Sodium 100 mcg/ (Levothyroxine Sodium 75 mcg) 175 mcg GT DAILY@ 0700 [facility] Last Admin: 05/18/18 06:31 Dose: 175 mcg Metoprolol Tartrate (Lopressor -) 50 mg GT BID [facility] Last Admin: 05/18/18 12:06 Dose: 50 mg - Objective Vital Signs: Vital Signs Temperature 98.4 F 05/17/18 18:32 Pulse Rate 85 05/18/18 12:07 Respiratory Rate 18 05/18/18 09:54 Blood Pressure 109/56 L 05/17/18 22:00 O2 Sat by Pulse Oximetry (%) 99 05/18/18 01:16 Constitutional: Yes: No Distress, Calm Cardiovascular: Yes: Regular Rate and Rhythm Respiratory: Yes: Mechanically Ventilated, Other Gastrointestinal: Yes: Normal Bowel Sounds, Soft Musculoskeletal: Yes: WNL Extremities: Yes: WNL Neurological: Yes: Alert, Other Psychiatric: Yes: Other Labs: CBC, BMP 05/18/18 09:32 05/18/18 09:32 INR, PTT INR 1.28 (0.83-1.09) H 05/09/18 15:34 Assessment/Plan 63 m hx afib, syst chf, ex drug abuse, cardiac arrest with anoxic brain injury and trach, suprapubic catheter, hcv, sent from [place] for erythema near g tube. erythema of the ge tube site abscess of the g tube site induration of the site resp failure vented plan can discharge on augmentin for 5 more days rest continue current mgmt vent support nutrition
[2018-05-18 15:48] VITALS: BP 115/67; PULSE 96; TEMP 98
[2018-05-18] MEDS: COLLAGENASE CLOSTRIDIUM HIST. 30 GRAMS TUBE TP SCH (17:48)
== END 2018-05-18 18:18 | DRG 393 ==
LOC: JER 14:22 → JERBED 15:34 → J5S 05-10 03:47
PROVIDERS: ADMIT Internal Medicine; ATTEND Internal Medicine
PROC: 0D20XUZ Change Feeding Device in Upper Intestinal Tract, External Approach (ICD-10-PCS; principal; 2018-05-15)
DX: K94.23 Gastrostomy malfunction (principal); R53.2 Functional quadriplegia; Z99.11 Dependence on respirator [ventilator] status; I50.22 Chronic systolic (congestive) heart failure; G93.1 Anoxic brain damage, not elsewhere classified; J96.10 Chronic respiratory failure, unspecified whether with hypoxia or hypercapnia; K94.22 Gastrostomy infection; Y83.3 Surgical operation with formation of external stoma as the cause of abnormal reaction of the patient, or of later complication, without mention of misadventure at the time of the procedure; Y73.8 Miscellaneous gastroenterology and urology devices associated with adverse incidents, not elsewhere classified; I11.0 Hypertensive heart disease with heart failure; I48.91 Unspecified atrial fibrillation; E03.9 Hypothyroidism, unspecified; B19.20 Unspecified viral hepatitis C without hepatic coma; R56.9 Unspecified convulsions; D64.9 Anemia, unspecified; Z93.0 Tracheostomy status; Z86.74 Personal history of sudden cardiac arrest; Z87.891 Personal history of nicotine dependence; I34.1 Nonrheumatic mitral (valve) prolapse; I25.10 Atherosclerotic heart disease of native coronary artery without angina pectoris; I25.2 Old myocardial infarction; J44.9 Chronic obstructive pulmonary disease, unspecified; R19.7 Diarrhea, unspecified
CPT/HCPCS: 36415; 71045-TC-FY; 74018-TC-FY; 74160-TC; 74177-TC; 80048; 80053; 80162; 80177; 81003; 81015; 83605; 83735; 83880; 84100; 84443; 85025; 85027; 85610; 86850; 86900; 86901; 86922; 87040; 87086; 93005; 93010; 94002; 94640; 99285-25; J0131; Q9967

== ENCOUNTER 2019-04-25 23:56 | Inpatient (IN) | payer OTHER ==
--- NOTE | 2019-04-26 00:10 | PDOC ---
History of Present Illness - General Chief Complaint: G Tube Problem Stated Complaint: G-TUBE REPLACEMENT Time Seen by Provider: 04/26/19 00:10 History Source: Patient Exam Limitations: Clinical Condition, Unresponsive - History of Present Illness Initial Comments: Hx limited bc patient is non-verbal, charts reviewed. Tate Wagoner is a 64 yo M w a hx of anoxic brain injury secondary to [place] and in a permanent vegetative state sent in from [facility] to have his G-tube replaced. Per EMS patient was hypotensive on route TO 70/30 so they gave him a liter of NS. PCP: Rc Bah Hx: - Vegetative state 2/2 Anoxic brain injury 2/2 [place] in May 2017 - Ventilator dependent - Afib on Eliquis - Enterocolitis d/t c.Diff on Bacid Capsule - Dry eye syndrome - GERD with esophagitis - Rheumatic mitral valve disease - Hypertension and Hypotension - Chronic pressure ulcers - Pain disorder, unspecified - Anemia, unspecified - Hypothyroid - Typhoid fever Surgical Hx: - Tracheostomy - Peg tube placement - Suprapubic catheter placement Past History - Past Medical History Allergies/Adverse Reactions: Allergies Allergy/AdvReac Type Severity Reaction Status Date / Time No Known Allergies Allergy Verified 04/26/19 00:32 Home Medications: Ambulatory Orders Acetaminophen [Tylenol .Extra-Strength -] 500 mg GT Q6H PRN 07/31/17 Hypromellose 0.5% Opth Soln [Artificial Tears] 1 drop OU QID 07/31/17 Metoprolol Tartrate [Lopressor -] 50 mg GT BID #60 tablet 08/10/17 Amiodarone HCl [Cordarone -] 200 mg GT DAILY 10/24/17 Apixaban [Eliquis -] 5 mg GT BID 10/24/17 Collagenase Clostridium Hist. [Santyl -] 1 applic TP TID PRN 10/24/17 Digoxin [Lanoxin -] 0.25 mg GT DAILY 10/24/17 Furosemide [Lasix -] 40 mg GT DAILY 10/24/17 Potassium Chloride [Potassium Chloride Oral Liquid] 20 meq GT DAILY 10/24/17 Zinc Oxide 20% Topical Oint 454 gm NR BID PRN 10/24/17 Albuterol 2.5/Ipratropium 0.5 [Duoneb -] 1 amp NEB TID 03/09/18 Ergocalciferol (Vitamin D2) [Calcidol] 6.25 ml PO WEEKLY 03/09/18 Mupirocin Ointment [Bactroban 2% Ointment -] 1 applic TP BID 03/09/18 Lactobacillus Acidophilus [Bacid -] 1 tab GT BID tab 03/12/18 Levothyroxine [Synthroid -] 150 mcg GT DAILY@0700 05/09/18 Amoxicillin/Potassium Clav [Augmentin 875-125 Tablet] 1 each PO BID 5 Days #10 tablet 05/18/18 Collagenase Clostridium Hist. [Santyl -] 1 applic TP DAILY tube 05/18/18 levETIRAcetam [Keppra Oral Solution -] 500 mg GT BID cup 05/18/18 levETIRAcetam [Keppra Oral Solution -] 750 mg GT BID #1 bottle 05/18/18 Anemia: Yes Asthma: No Cancer: Yes (malignant neoplasm of penis, scrotum,) Cardiac Disorders: Yes (RHEUMATIC MITRAL VALVE DISEASE, atrial fibrillation) CVA: No COPD: Yes CHF: Yes Dementia: No Diabetes: No GI Disorders: Yes (gerd) Disorders: No HTN: Yes Hypercholesterolemia: No Kidney Stones: No Liver Disease: No Seizures: Yes (drug related seizure 12/2012) Thyroid Disease: Yes (HYPOTHYROID) - Surgical History Abdominal Surgery: No Appendectomy: No Cardiac Surgery: No Cholecystectomy: No Lung Surgery: No Neurologic Surgery: No Orthopedic Surgery: No - Reproductive History Testicular Surgery: No - Immunization History Immunization Up to Date: (Unkown) - Psycho Social/Smoking Cessation Hx Smoking History: Former smoker Have you smoked in the past 12 months: No If you are a former smoker, when did you quit?: 9 years ago Hx Alcohol Use: Yes (in past only) Drug/Substance Use Hx: No Substance Use Type: None Hx Substance Use Treatment: Yes Review of Systems - Review of Systems Able to Perform ROS?: No (non-verbal) *Physical Exam - Physical Exam Trached, unresponsive General Appearance: Yes: Other (Trached - unresponsive) HEENT: negative: EOMI, DEAN, Normal Voice, Pharynx Normal Neck: positive: Trachea midline, Supple Respiratory/Chest: positive: Crackles (right base). negative: Lungs Clear, Normal Breath Sounds Cardiovascular: positive: Regular Rate, Bradycardia, Irregularly Irregular Vascular Pulses: Dorsalis-Pedis (R): 2+, Doralis-Pedis (L): 2+ Gastrointestinal/Abdominal: positive: Soft, Other (G-tube in place, no surrounding erythema). negative: Guarding, Rebound Male Genitalia: positive: other (Suprapubic cath in place - penis has umbilicated papules diffusely). negative: normal genitalia Musculoskeletal: positive: Decreased Range of Motion. negative: Normal Inspection Extremity: positive: Normal Capillary Refill. negative: Delayed Capillary Refill Integumentary: positive: Dry, Cold Neurologic: positive: Respond to painful stimul ED Treatment Course - LABORATORY CBC & Chemistry Diagram: 04/26/19 01:00 04/26/19 01:00 Medical Decision Making - Medical Decision Making Hx limited bc patient is non-verbal, charts reviewed. Tate Wagoner is a 64 yo M w a hx of anoxic brain injury secondary to [place] and in a permanent vegetative state sent in from [facility] to have his G-tube replaced. Per EMS patient was hypotensive on route TO 70/30 so they gave him a liter of NS. PCP: Rc Bah Hx: - Vegetative state 2/2 Anoxic brain injury 2/2 [place] in May 2017 - Ventilator dependent - Afib on Eliquis - Enterocolitis d/t c.Diff on Bacid Capsule - Dry eye syndrome - GERD with esophagitis - Rheumatic mitral valve disease - Hypertension and Hypotension - Chronic pressure ulcers - Pain disorder, unspecified - Anemia, unspecified - Hypothyroid - Typhoid fever Surgical Hx: - Tracheostomy - Peg tube placement - Suprapubic catheter placement Vital Signs Temp Pulse Resp BP Pulse Ox 97.2 F L 101 H 20 89/62 L 100 04/26/19 00:29 04/26/19 00:29 04/26/19 00:29 04/26/19 00:29 04/26/19 00:29 - Tachycardic - Hypotensive - Rales in right base Plan: G-tube replaced - will obtain confirmatory x-ray MDM: Given rales and tachycardia will perform ED sepsis workup to r/o PNA and septic shock EKG: Irregularly irregular, A-fib, vent rate of 81, multiple premature complexes , LAD, low voltage QRS, TWI's in 1 and aVL, QTc 425, No ST elevations or depressions, no Q waves. Dispo: Anticipate patient being admitted on broad spectrum Abx for PNA vs UTI Signing out patient to Dr. [place] for final ED disposition and further treatment Discharge - Discharge Information Problems reviewed: Yes Clinical Impression/Diagnosis: Gastrostomy tube dysfunction Hypotension Qualifiers: Hypotension type: unspecified hypotension type Qualified Code(s): I95.9 - Hypotension, unspecified Condition: Stable - Follow up/Referral - Patient Discharge Instructions - Post Discharge Activity
--- NOTE | 2019-04-26 01:05 | PDOC ---
Documentation entered by Thien Pascual SCRIBE, acting as scribe for Julianne Colmenares DO. Julianne Colmenares DO: This documentation has been prepared by the Ankur maldonado Daniel, SCRIBE, under my direction and personally reviewed by me in its entirety. I confirm that the documentation accurately reflects all work, treatment, procedures, and medical decision making performed by me. Attending Attestation - Resident Resident Name: Ezequiel Waters - ED Attending Attestation I have performed the following: I have examined & evaluated the patient, The case was reviewed & discussed with the resident, I agree w/resident's findings & plan, Exceptions are as noted - HPI HPI: 04/26/19 00:29 The patient is a 64 year old male with a past medical history of HTN, afib ( eliquis), CHF, COPD, tracheostomy, PEG tube, suprapubic catheter, quadriplegia, Hep C, hypothyroidism, and decubitus ulcers here today from [facility] for evaluation of G tube replacement. As per EMS, the patients G tube came out tonight and the balloon no longer inflates when it was put back in. EMS states that in the ambulance the patients blood pressure was 70/40. Patient is non verbal and unable to provide history. Allergies: NKA - Physicial Exam PE: 04/26/19 00:33 Constitutional: No acute distress. Head: Normocephalic. Atraumatic Eyes: PERRL. EOMI. Conjunctivae are not pale. ENT: +chronic tacheostomy tube. Mucous membranes are moist and intact. Posterior pharynx without exudates or erythema. Uvula midline. Neck: Supple. Full ROM. No lymphadenopathy. Cardiovascular: Regular rate. Regular rhythm. S1, S2 regular. Distal pulses are 2+ and symmetric. Pulmonary/Chest: +coarse crackles on the right. No evidence of respiratory distress. No wheezing, rales or rhonchi. Abdominal: +suprapubic catheter. +chronic PEG tube. Soft and non-distended. There is no tenderness. No rebound, guarding or rigidity. No organomegaly. No palpable masses. Good bowel sounds. Back: No CVA tenderness. Musculoskeletal: No edema. No cyanosis. No clubbing. No calf tenderness. Radial/pedal pulses are intact and 2+ bilaterally Skin: Skin is warm and dry. No petechiae. No purpura. Neurological: +quadriplegic, not able to move any extremities secondary to traumatic brain injury. Psychiatric: Good eye contact. Normal interaction, affect and behavior. - Medical Decision Making 04/26/19 01:02 a/p: 64yo male sent from [facility] for eval of low bp and dislodged peg tube -18f peg tube replaced, balloon inflated, replaced without difficulty -pt arrives with ivf hydration running -pt is not febrile -chronic trach, peg, suprapubic cath with clean sites -coarse R sided breath sounds -will send labs, cxr, abd xray for peg plcement -will monitor and reassess -concern for pna 04/26/19 01:47 cxr appears congested increased vascular markings abd xray shows the peg tub in place 04/26/19 01:59 pt pending labs poss early infiltrate RLL - will start abx pt will need admission Heart Score/ECG Review - ECG Intrepretation Comment:: 04/26/19 01:21 afib at 81, l axis, no acute st/t wave ifnidngs, low voltage, q waves septally which are age indeterminate, abnl ekg
[2019-04-26 02:05] LABS: BASO % 0.8 % (0-2.0); HEMATOCRIT 26.9 % (35.4-49); HEMOGLOBIN 8.6 GM/dL (11.7-16.9); LYMPH % 28.1 % (8-40); MCH 28.6 pg (25.7-33.7); MEAN CELL VOLUME 89.6 fl (80-96); MEAN PLT VOLUME 10.5 fl (7.5-11.1); MONO % 6.8 % (3.8-10.2); NEUT % 59.3 % (42.8-82.8); PLATELET COUNT 139 K/MM3 (134-434); RDW 16.4 % (11.9-15.9); WHITE BLOOD COUNT 4.4 K/mm3 (4.0-10.0)
--- NOTE | 2019-04-26 02:05 | PDOC ---
*Physical Exam - Vital Signs Last Vital Signs Temp Pulse Resp BP Pulse Ox 97.2 F L 101 H 20 89/62 L 100 04/26/19 00:29 04/26/19 00:29 04/26/19 00:29 04/26/19 00:29 04/26/19 00:29 ED Treatment Course - LABORATORY CBC & Chemistry Diagram: 04/26/19 01:00 04/26/19 01:00 Medical Decision Making - Medical Decision Making 04/26/19 02:03 Sign out received from Dr Waters. Tate Wagoner is a 64yo man with a PMH of anoxic brain injury secondary to [place], in a permanent vegitative state, who was sent from [facility] for g-tube replacement. He was noted to be hypotensive to the 70/30[address] to the ED. ED course so far notable for: - G-tube replaced - Persistent hypotension after IVF - Sepsis workup ordered - CXR with likely RML infiltrate 04/26/19 02:56 - UA positive, 3+ leuk esterase, 4000 bacteria - Most likely sepsis secondary to UTI - BP improved to low 100's following IVF - Will send microblog for admission 04/26/19 03:28 - Sign out given to hospitalist team by Dr Ochoa Discussed with Dr Don Washington PGY2 Discharge - Discharge Information Problems reviewed: Yes Clinical Impression/Diagnosis: Gastrostomy tube dysfunction Hypotension Qualifiers: Hypotension type: unspecified hypotension type Qualified Code(s): I95.9 - Hypotension, unspecified UTI (urinary tract infection) Qualifiers: Urinary tract infection type: site unspecified Hematuria presence: without hematuria Qualified Code(s): N39.0 - Urinary tract infection, site not specified Sepsis Qualifiers: Sepsis type: sepsis due to unspecified organism Sepsis acute organ dysfunction status: unspecified Qualified Code(s): A41.9 - Sepsis, unspecified organism Condition: Stable - Admission Yes - Follow up/Referral - Patient Discharge Instructions - Post Discharge Activity
[2019-04-26] MEDS ORDERED: VANCOMYCIN 1 GM in D5W (PRE-DOCKED) 1,000 MG/250 ML IVPB ONE (02:06)
[2019-04-26] MEDS ORDERED: PIPERACILLIN/TAZOB 4.5 GM 4.5 GM in DEXTROSE 5%-WATER 100 ML IVPB ONE (02:06)
[2019-04-26 02:09] LABS: VENOUS PC02 59.7 mmHg (38-52); VENOUS PH 7.35 (7.31-7.41); VENOUS PO2 < 49 mmHg (28-48)
[2019-04-26 02:10] LABS: EPI CELLS 0.9 /HPF (0-5/HPF); HYALINE CASTS 65 /lpf (0-8); PH,URINE 6.5 (5.0-8.0); URINE APPEARANCE TURBID; URINE BACTERIA 4135.6 /hpf (NEGATIVE); URINE BILIRUBIN NEGATIVE (NEGATIVE); URINE COLOR YELLOW; URINE GLUCOSE (UA) NEGATIVE (NEGATIVE); URINE KETONE NEGATIVE (NEGATIVE); URINE LEUK ESTERASE 3+ (NEGATIVE); URINE NITRITE NEGATIVE (NEGATIVE); URINE PROTEIN TRACE (NEGATIVE); URINE RBC 11 /hpf (0-4); URINE UROBILINOGEN 0.2 mg/dL (0.2-1.0); URINE WBC 166 /hpf (0-5)
[2019-04-26 02:12] LABS: INR 1.23 (0.83-1.09); PROTHROMBIN TIME (PATIENT) 14.6 SEC (9.7-13.0)
[2019-04-26 02:15] LABS: ACTIVATED PTT 34.8 SECONDS (25.2-36.5)
[2019-04-26] MEDS ORDERED: PIPERACILLIN/TAZOB 4.5 GM 4.5 GM/100 ML BAG IVPB ONE (02:26)
[2019-04-26 02:32] LABS: ALBUMIN 2.9 g/dl (3.4-5.0); BILIRUBIN,TOTAL 0.2 mg/dL (0.2-1); BLOOD UREA NITROGEN 22.6 mg/dL (7-18); CALCIUM 8.4 mg/dL (8.5-10.1); CREATININE 0.5 mg/dL (0.55-1.3); POTASSIUM 3.7 mmol/L (3.5-5.1); TOT PROT 6.7 g/dl (6.4-8.2)
[2019-04-26] MEDS ORDERED: VANCOMYCIN 1 GRAM (PRE-DOCKED) 1,000 MG/250 ML BAG IVPB ONE (02:59)
[2019-04-26] MEDS ORDERED: ACETAMINOPHEN 500 MG TABLET (FP) GT PRN (03:41)
[2019-04-26] MEDS ORDERED: COLLAGENASE CLOSTRIDIUM HIST. 30 GRAMS TUBE TP PRN (03:41)
[2019-04-26] MEDS ORDERED: PATIENT'S OWN MEDICATION (NON-FORMULARY) (Zinc Oxide 20% Topical Oint 454 GM) NR PRN (03:41)
[2019-04-26 04:06] LABS: URINE CRYSTALS SEEN /hpf
--- NOTE | 2019-04-26 04:09 | HP ---
CHIEF COMPLAINT: here from [facility] for G-tube displacement and hypotension PCP:Dr. Sheppard HISTORY OF PRESENT ILLNESS: Mr. Wagoner is a 64 year old male here fro [facility] with a past medical history significant for anoxic brain injury secondary to [place] 05/2017 in a permanent vegetative state with a tracheostomy to ventilator, G-tube and quadraplegica, nonverbal with eyes open, hypertension, hepatitis C and atrial fibrillation (on Eliquis) who was sent to ER for G-tube replacement as it was displaced . He was noted to be hypotensive in the 70/30[address] to the ED. G-Tube was replaced in the ER and confirmed placement. Patient had persistent hypotension which improved following IVF. Upon workup CXR showed a right middle lobe infiltrate and UA with 3+ leukoesterase and bacteria. He was givena dose of IV vancomycin and zosyn. Recent Travel: no PAST MEDICAL HISTORY: [place] anoxic brain injury/quadraplegia/ tracheostomy to ventilator hypertension atrial fibrillation PAST SURGICAL HISTORY: unknown Social History: Smoking:unable to obtain Alcohol:unable to obtain Drugs: unable to obtain Allergies No Known Allergies Allergy (Verified 04/26/19 00:32) HOME MEDICATIONS: Home Medications Medication Instructions Recorded Acetaminophen [Tylenol 500 mg GT Q6H PRN 07/31/17 .Extra-Strength -] Hypromellose 0.5% Opth Soln 1 drop OU QID 07/31/17 [Artificial Tears] Metoprolol Tartrate [Lopressor -] 50 mg GT BID #60 tablet 08/10/17 Amiodarone HCl [Cordarone -] 200 mg GT DAILY 10/24/17 Apixaban [Eliquis -] 5 mg GT BID 10/24/17 Collagenase Clostridium Hist. 1 applic TP TID PRN 10/24/17 [Santyl -] Digoxin [Lanoxin -] 0.25 mg GT DAILY 10/24/17 Furosemide [Lasix -] 40 mg GT DAILY 10/24/17 Potassium Chloride [Potassium 20 meq GT DAILY 10/24/17 Chloride Oral Liquid] Zinc Oxide 20% Topical Oint 454 gm NR BID PRN 10/24/17 Albuterol 2.5/Ipratropium 0.5 1 amp NEB TID 03/09/18 [Duoneb -] Ergocalciferol (Vitamin D2) 6.25 ml PO WEEKLY 03/09/18 [Calcidol] Mupirocin Ointment [Bactroban 2% 1 applic TP BID 03/09/18 Ointment -] Lactobacillus Acidophilus [Bacid -] 1 tab GT BID tab 03/12/18 Levothyroxine [Synthroid -] 150 mcg GT DAILY@0700 05/09/18 Amoxicillin/Potassium Clav 1 each PO BID 5 Days #10 tablet 05/18/18 [Augmentin 875-125 Tablet] Collagenase Clostridium Hist. 1 applic TP DAILY tube 05/18/18 [Santyl -] levETIRAcetam [Keppra Oral 500 mg GT BID cup 05/18/18 Solution -] levETIRAcetam [Keppra Oral 750 mg GT BID #1 bottle 05/18/18 Solution -] REVIEW OF SYSTEMS UNABLE TO OBTAIN ROS DUE TO PATIENT MENTAL STATUS CONSTITUTIONAL: Absent: fever, chills, diaphoresis, generalized weakness, malaise, loss of appetite, weight change HEENT: Absent: rhinorrhea, nasal congestion, throat pain, throat swelling, difficulty swallowing, mouth swelling, ear pain, eye pain, visual changes CARDIOVASCULAR: Absent: chest pain, syncope, palpitations, irregular heart rate, lightheadedness , peripheral edema RESPIRATORY: Absent: cough, shortness of breath, dyspnea with exertion, orthopnea, wheezing, stridor, hemoptysis GASTROINTESTINAL: Absent: abdominal pain, abdominal distension, nausea, vomiting, diarrhea, constipation, melena, hematochezia GENITOURINARY: Absent: dysuria, frequency, urgency, hesitancy, hematuria, flank pain, genital pain MUSCULOSKELETAL: Absent: myalgia, arthralgia, joint swelling, back pain, neck pain SKIN: Absent: rash, itching, pallor HEMATOLOGIC/IMMUNOLOGIC: Absent: easy bleeding, easy bruising, lymphadenopathy, frequent infections ENDOCRINE: Absent: unexplained weight gain, unexplained weight loss, heat intolerance, cold intolerance NEUROLOGIC: Absent: headache, focal weakness or paresthesias, dizziness, unsteady gait, seizure, mental status changes, bladder or bowel incontinence PSYCHIATRIC: Absent: anxiety, depression, suicidal or homicidal ideation, hallucinations. PHYSICAL EXAMINATION Vital Signs - 24 hr 04/26/19 04/26/19 04/26/19 00:17 00:29 02:38 Temperature 97.2 F L Pulse Rate 101 H Pulse Rate [ 97 H Apical] Respiratory 12 20 16 Rate Blood Pressure 89/62 L Blood Pressure 111/72 [Left Arm] O2 Sat by Pulse 100 100 Oximetry (%) GENERAL: eyes open , no acute distress HEAD: normal EYES: pupils fixed EARS, NOSE, THROAT: ears normal nares patent oropharynx clear NECK no JVD LUNGS: diminished breath sounds trach to vent nonlabored breathing effort no use of accessory muscles HEART: regular rate normal S1 and S2 ABDOMEN: not distended G-Tube site with no erythema or drainage MUSCULOSKELETAL:limited ROM LOWER EXTREMITIES: pale and cool with discoloration no pitting edema NEUROLOGICAL: nonverbal , eyes open and fixed no movement to upper and lower extremities , does not follow commands SKIN: scaral decubiti, discolored lower extremities Laboratory Results - last 24 hr 04/26/19 04/26/19 04/26/19 01:00 01:00 01:00 WBC RBC Hgb Hct MCV MCH MCHC RDW Plt Count MPV Absolute Neuts (auto) Neutrophils % Lymphocytes % Monocytes % Eosinophils % Basophils % Nucleated RBC % PT with INR 14.60 H INR 1.23 H PTT (Actin FS) 34.8 VBG pH 7.35 POC VBG pCO2 59.7 H POC VBG pO2 < 49 H VBG HCO3 32.4 H VBG O2 Sat (Miguelito) 48.3 L VBG Base Excess 6.3 H Sodium Potassium Chloride Carbon Dioxide Anion Gap BUN Creatinine Est GFR (CKD-EPI)AfAm Est GFR (CKD-EPI)NonAf Random Glucose Lactic Acid Calcium Total Bilirubin AST ALT Alkaline Phosphatase Troponin I < 0.02 Total Protein Albumin Urine Color Urine Appearance Urine pH Ur Specific Milton Urine Protein Urine Glucose (UA) Urine Ketones Urine Blood Urine Nitrite Urine Bilirubin Urine Urobilinogen Ur Leukocyte Esterase Urine WBC (Auto) Urine RBC (Auto) Urine Casts (Auto) U Epithel Cells (Auto) Urine Bacteria (Auto) 04/26/19 04/26/19 04/26/19 01:00 01:00 01:00 WBC RBC Hgb Hct MCV MCH MCHC RDW Plt Count MPV Absolute Neuts (auto) Neutrophils % Lymphocytes % Monocytes % Eosinophils % Basophils % Nucleated RBC % PT with INR INR PTT (Actin FS) VBG pH POC VBG pCO2 POC VBG pO2 VBG HCO3 VBG O2 Sat (Miguelito) VBG Base Excess Sodium 141 Potassium 3.7 Chloride 106 Carbon Dioxide 32 Anion Gap 3 L BUN 22.6 H Creatinine 0.5 L Est GFR (CKD-EPI)AfAm 131.80 Est GFR (CKD-EPI)NonAf 113.72 Random Glucose 95 Lactic Acid 0.7 Calcium 8.4 L Total Bilirubin 0.2 AST 18 ALT 29 Alkaline Phosphatase 88 Troponin I Total Protein 6.7 Albumin 2.9 L Urine Color Yellow Urine Appearance Turbid Urine pH 6.5 Ur Specific Milton 1.022 Urine Protein Trace Urine Glucose (UA) Negative Urine Ketones Negative Urine Blood 1+ H Urine Nitrite Negative Urine Bilirubin Negative Urine Urobilinogen 0.2 Ur Leukocyte Esterase 3+ H Urine WBC (Auto) 166 Urine RBC (Auto) 11 Urine Casts (Auto) 65 U Epithel Cells (Auto) 0.9 Urine Bacteria (Auto) 4135.6 04/26/19 01:00 WBC 4.4 RBC 3.00 L Hgb 8.6 L Hct 26.9 L MCV 89.6 MCH 28.6 MCHC 32.0 RDW 16.4 H Plt Count 139 D MPV 10.5 D Absolute Neuts (auto) 2.6 Neutrophils % 59.3 Lymphocytes % 28.1 D Monocytes % 6.8 Eosinophils % 5.0 H Basophils % 0.8 Nucleated RBC % 0 PT with INR INR PTT (Actin FS) VBG pH POC VBG pCO2 POC VBG pO2 VBG HCO3 VBG O2 Sat (Miguelito) VBG Base Excess Sodium Potassium Chloride Carbon Dioxide Anion Gap BUN Creatinine Est GFR (CKD-EPI)AfAm Est GFR (CKD-EPI)NonAf Random Glucose Lactic Acid Calcium Total Bilirubin AST ALT Alkaline Phosphatase Troponin I Total Protein Albumin Urine Color Urine Appearance Urine pH Ur Specific Milton Urine Protein Urine Glucose (UA) Urine Ketones Urine Blood Urine Nitrite Urine Bilirubin Urine Urobilinogen Ur Leukocyte Esterase Urine WBC (Auto) Urine RBC (Auto) Urine Casts (Auto) U Epithel Cells (Auto) Urine Bacteria (Auto) ASSESSMENT/PLAN: Mr. Wood is a 64 year old male with a past medical history significant for anoxic brain injury secondary to [place], in a permanent vegetative state with a tracheostomy to ventilator, G-tube and quadraplegic, nonverbal with eyes open, hypertension, hepatitis C and atrial fibrillation (on Eliquis) who was sent to ER for G-tube replacement as it was displaced .G-tube was replaced in the ER and confirmed placement. He was noted to be hypotensive with blood pressure being 70/30's on the way to the ED. Patient had persistent hypotension which improved following IVF. Upon workup in ER CXR showed a right middle lobe infiltrate. UA with 3+ leukoesterase and bacteria. He was given a dose of IV vancomycin and zosyn. He is being admitted for UTI/Sepsis to Medicine for further medical management. #1 Hypotension in setting of UTI Currently afebrile, UA w/ 3+ leukoesterase, neg nitrite, bacteria >4000, normal WBC and lactic acid --Pending urine and blood cultures --Continue with IV Vancomycin 1gm daily and IV Zosyn 3.375mg q8hr --Consulted Dr. Claudio of Infectious Diseases --Metoprolol on hold in this setting #2 Right Middle Lobe Infiltrate CXR with RML infiltrate , currently afebrile -Continue with IV vancomycin 1gm daily and IV zosyn 3.375mg q8hr #3 Atrial Fibrillation Rate controlled --Continue with amiodarone and digoxin --Check digoxin level --LFT's normal --Check TSH --Continue with Eliquis for anticoagulation #4 Hypertension Currently normotensive Metoprolol placed on hold #5 Anemia of Chronic Disease HGB 8.6/HCT 26.9, on asa and eliquis --Check iron studies --Check stool guaiac --Continue to guanako medel #6 Sacral Decubiti Turn and reposition Q2HR Continue with collagense dressing Wound Care consulted- Dr. Rafa Amos #7 Anoxia/ Brain Injury Continue with keppra Check keppra level #8 G-tube Displacement Replaced in ER Check CXR if in place post replacement FEN IVF NS at 75/cchr Feeding by G-tube RD consulted for low albumin and feeding calculation Monitor electrolytes closely DVT Continue with systemic anticoagulation(Eliquis) TEDS/SCDs Visit type - Emergency Visit Emergency Visit: Yes ED Registration Date: 04/26/19 Care time: The patient presented to the Emergency Department on the above date and was hospitalized for further evaluation of their emergent condition. - New Patient This patient is new to me today: Yes Date on this admission: 04/26/19 - Critical Care Critical Care patient: No
[2019-04-26] MEDS ORDERED: ZINC OXIDE 20% TOPICAL OINTMENT 30 GM TUBE TP PRN (04:15)
[2019-04-26] MEDS: SODIUM CHLORIDE 1,000 ML IV SCH (05:12)
[2019-04-26] MEDS ORDERED: LEVOTHYROXINE NA 25 MCG TABLET (FP) ONE (06:15)
[2019-04-26] MEDS: LEVOTHYROXINE NA 150 MCG TABLET GT SCH (06:27)
[2019-04-26] MEDS ORDERED: ALBUTEROL SO4 2.5/IPRATROPIUM 0.5 INH SOL 3 ML VIAL.NEB. NEB ONE (08:28)
[2019-04-26] MEDS: ALBUTEROL SO4 2.5/IPRATROPIUM 0.5 INH SOL 3 ML VIAL.NEB. NEB SCH ×3 (08:41→21:00)
[2019-04-26] MEDS: FUROSEMIDE 40 MG TABLET (FP) GT SCH (09:20)
[2019-04-26] MEDS: ASPIRIN 81 MG CHEWABLE TABLETS GT SCH (09:20)
[2019-04-26] MEDS: AMIODARONE HCL 200 MG TABLET GT SCH (09:20)
[2019-04-26] MEDS: APIXABAN 5 MG TABLET PEG SCH ×2 (09:20→22:36)
[2019-04-26] MEDS: LACTOBACILLUS ACIDOPHILUS 1 TABLET GT SCH ×2 (09:20→22:36)
[2019-04-26] MEDS: levETIRAcetam 500 MG/5 ML ORAL SOLUTION (UNIT-DOSE CUPS) GT SCH ×2 (09:40→22:36)
[2019-04-26] MEDS ORDERED: DIGOXIN 0.25 MG TABLET (FP) GT SCH (10:00)
[2019-04-26] MEDS ORDERED: METOPROLOL TARTRATE 50 MG TABLET (FP) GT SCH (10:00)
[2019-04-26] MEDS ORDERED: PIPERACILLIN/TAZOB 3.375 GM 3.375 GM in DEXTROSE 5%-WATER - 50 ML IVPB SCH (10:00)
[2019-04-26] MEDS ORDERED: VANCOMYCIN 1 GM in D5W (PRE-DOCKED) 1,000 MG/250 ML IVPB SCH (10:00)
[2019-04-26] MEDS ORDERED: PATIENT'S OWN MEDICATION (NON-FORMULARY) (Hypromellose 0.5% Opth Soln [Artificial Tears] 1 OU SCH (10:00)
[2019-04-26] MEDS ORDERED: PIPERACILLIN/TAZOB 3.375 GM 3.375 GM/50 ML BAG IVPB ONE (10:08)
[2019-04-26 10:11] LABS: HEMATOCRIT 25.9 % (35.4-49); HEMOGLOBIN 8.3 GM/dL (11.7-16.9); MCH 28.4 pg (25.7-33.7); MEAN CELL VOLUME 88.6 fl (80-96); MEAN PLT VOLUME 10.4 fl (7.5-11.1); PLATELET COUNT 144 K/MM3 (134-434); RBC 2.92 M/mm3 (4.00-5.60); RDW 16.2 % (11.9-15.9); WHITE BLOOD COUNT 5.4 K/mm3 (4.0-10.0)
[2019-04-26 10:37] LABS: BLOOD UREA NITROGEN 19.6 mg/dL (7-18); CALCIUM 8.6 mg/dL (8.5-10.1); CREATININE 0.6 mg/dL (0.55-1.3); POTASSIUM 3.7 mmol/L (3.5-5.1)
--- NOTE | 2019-04-26 11:51 | PN ---
Progress Note, Physician History of Present Illness: pt seen/ examined in er chart is reviewed. comfortable non verbal - Current Medication List Current Medications: Active Medications Acetaminophen (Tylenol -) 500 mg GT Q6H PRN PRN Reason: PAIN Albuterol/Ipratropium (Duoneb -) 1 amp NEB RTID [facility] Last Admin: 04/26/19 08:41 Dose: 1 amp Amiodarone HCl (Cordarone -) 200 mg GT DAILY [facility] Last Admin: 04/26/19 09:20 Dose: 200 mg Apixaban (Eliquis -) 5 mg PEG BID [facility] Last Admin: 04/26/19 09:20 Dose: 5 mg Artificial Tears (Artificial Tears) 1 drop OU QID [facility] Aspirin (Asa -) 81 mg GT DAILY [facility] Last Admin: 04/26/19 09:20 Dose: 81 mg Collagenase (Santyl -) 1 applic TP DAILY [facility]; Protocol Ergocalciferol (Drisdol Oral Solution -) units PO WEEKLY [facility] Furosemide (Lasix -) 40 mg GT DAILY [facility] Last Admin: 04/26/19 09:20 Dose: 40 mg Sodium Chloride (Normal Saline -) 1,000 mls @ 75 mls/hr IV ASDIR [facility] Last Admin: 04/26/19 05:12 Dose: 75 mls/hr Piperacillin Sod/Tazobactam (Sod 3.375 gm/ Dextrose) 50 mls @ 100 mls/hr IVPB Q8H-IV [facility]; Protocol Piperacillin Sod/Tazobactam (Sod 3.375 gm/ Dextrose) 50 mls @ 100 mls/hr IVPB Q8H-IV [facility]; Protocol Stop: 04/27/19 02:29 Last Admin: 04/26/19 10:13 Dose: 100 mls/hr Vancomycin HCl (Vancomycin (Pre-Docked)) 1,000 mg in 250 mls @ 166.667 mls/hr IVPB Q24H [facility] Stop: 04/27/19 14:59 Lactobacillus Acidophilus (Bacid -) 1 tab GT BID [facility] Last Admin: 04/26/19 09:20 Dose: 1 tab Levetiracetam (Keppra Oral Solution -) 500 mg GT BID [facility] Last Admin: 04/26/19 09:40 Dose: 500 mg Levothyroxine Sodium (Synthroid -) 150 mcg GT DAILY@0700 [facility] Last Admin: 04/26/19 06:27 Dose: 150 mcg Multi-Ingredient Ointment (Zinc Oxide) 1 applic TP PRN PRN PRN Reason: HYGEINE Mupirocin (Bactroban 2% Ointment -) 1 applic TP BID [facility] Vancomycin HCl (Vancomycin (Pre-Docked)) 1,000 mg IVPB DAILY [facility]; Protocol - Objective Vital Signs: Vital Signs Temperature 97.2 F L 04/26/19 00:29 Pulse Rate 66 04/26/19 11:31 Respiratory Rate 13 04/26/19 11:31 Blood Pressure 101/50 L 04/26/19 11:31 O2 Sat by Pulse Oximetry (%) 100 04/26/19 11:31 Constitutional: Yes: No Distress Eyes: Yes: Conjunctiva Clear, Other (fixed) Neck: Yes: Other (trach). No: Supple Cardiovascular: Yes: Pulse Irregular Respiratory: Yes: Diminished Gastrointestinal: Yes: Soft, Other (G tube) Genitourinary: Yes: Boucher Present Edema: No Labs: CBC, BMP 04/26/19 09:50 04/26/19 09:50 INR, PTT INR 1.23 (0.83-1.09) H 04/26/19 01:00 Problem List - Problems (1) Hypotension Code(s): I95.9 - HYPOTENSION, UNSPECIFIED Qualifiers: Hypotension type: unspecified hypotension type Qualified Code(s): I95.9 - Hypotension, unspecified (2) UTI (urinary tract infection) Code(s): N39.0 - URINARY TRACT INFECTION, SITE NOT SPECIFIED Qualifiers: Urinary tract infection type: site unspecified Hematuria presence: without hematuria Qualified Code(s): N39.0 - Urinary tract infection, site not specified (3) Anoxic brain injury Code(s): G93.1 - ANOXIC BRAIN DAMAGE, NOT ELSEWHERE CLASSIFIED (4) Atrial fibrillation Code(s): I48.91 - UNSPECIFIED ATRIAL FIBRILLATION Qualifiers: Atrial fibrillation type: persistent (5) Chronic respiratory failure Code(s): J96.10 - CHRONIC RESPIRATORY FAILURE, UNSP W HYPOXIA OR HYPERCAPNIA Qualifiers: Respiratory failure complication: unspecified whether with hypoxia or hypercapnia Qualified Code(s): J96.10 - Chronic respiratory failure, unspecified whether with hypoxia or hypercapnia (6) Dislodged gastrostomy tube Code(s): Z43.1 - ENCOUNTER FOR ATTENTION TO GASTROSTOMY (7) Quadriplegia, functional Code(s): R53.2 - FUNCTIONAL QUADRIPLEGIA (8) Rheumatic heart disease Code(s): I09.9 - RHEUMATIC HEART DISEASE, UNSPECIFIED (9) Suprapubic catheter dysfunction Code(s): T83.010A - BREAKDOWN (MECHANICAL) OF CYSTOSTOMY CATHETER, INIT ENCNTR (10) Tracheostomy tube present Code(s): Z93.0 - TRACHEOSTOMY STATUS Assessment/Plan In summary . ASSESSMENT/PLAN: Mr. Wood is a 64 year old male with a past medical history significant for anoxic brain injury secondary to [place], in a permanent vegetative state with a tracheostomy to ventilator, G-tube and quadraplegic, nonverbal with eyes open, hypertension, hepatitis C and atrial fibrillation (on Eliquis) who was sent to ER for G-tube replacement as it was displaced .G-tube was replaced in the ER and confirmed placement. He was noted to be hypotensive with blood pressure being 70/30's on the way to the ED. Patient had persistent hypotension which improved following IVF. Upon workup in ER CXR showed a right middle lobe infiltrate. UA with 3+ leukoesterase and bacteria. He was given a dose of IV vancomycin and zosyn. #1 Hypotension in setting of UTI Currently afebrile, UA w/ 3+ leukoesterase, neg nitrite, bacteria >4000, normal WBC and lactic acid --Pending urine and blood cultures --Continue with IV Vancomycin 1gm daily and IV Zosyn 3.375mg q8hr --Consulted Dr. Claudio of Infectious Diseases --Metoprolol on hold in this setting #2 Right Middle Lobe Infiltrate ? -Continue with IV vancomycin 1gm daily and IV zosyn 3.375mg q8hr #3 Atrial Fibrillation Rate controlled --Continue with amiodarone --Check digoxin level-- Elevated -- Hold Digoxin for now -- --Continue with Eliquis for anticoagulation #4 Hypertension Monitor #5 Anemia of Chronic Disease Monitor #6 Sacral Decubiti Turn and reposition Q2HR Continue with collagense dressing Wound Care consulted- Dr. Rafa Amos #7 Anoxia/ Brain Injury Continue with keppra Check keppra level #8 G-tube Displacement Replaced in ER Restart feeding condition gaurded Trach care Will follow D/W Rn also
[2019-04-26] MEDS: COLLAGENASE CLOSTRIDIUM HIST. 30 GRAMS TUBE TP SCH (12:00)
[2019-04-26] MEDS: ARTIFICIAL TEARS (POLYVINYL ALCOHOL) OPTH DROPS OU SCH ×4 (12:00→22:36)
[2019-04-26] MEDS: MUPIROCIN 2% TOPICAL OINTMENT 22 GM TUBE TP SCH ×2 (12:00→22:39)
--- NOTE | 2019-04-26 13:23 | EKG ---
Test Reason : Blood Pressure : / mmHG Vent. Rate : 081 BPM Atrial Rate : 065 BPM P-R Int : 000 ms QRS Dur : 084 ms QT Int : 366 ms P-R-T Axes : 000 -30 076 degrees QTc Int : 425 ms ATRIAL FIBRILLATION WITH PREMATURE VENTRICULAR OR ABERRANTLY CONDUCTED COMPLEXES LEFT AXIS DEVIATION LOW VOLTAGE QRS NONSPECIFIC ST AND T WAVE ABNORMALITY ABNORMAL ECG WHEN COMPARED WITH ECG OF 09-MAY-2018 16:35, QT HAS SHORTENED Confirmed by ARELI DESIR MD ([id number]) on 04/26/2019 1:23:02 PM Referred By: Confirmed By:ARELI DESIR MD
[2019-04-26] MEDS ORDERED: VANCOMYCIN 1 GRAM (PRE-DOCKED) 1,000 MG/250 ML BAG IVPB SCH (15:00)
--- NOTE | 2019-04-26 15:18 | CON.ID ---
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 He was noted to be hypotensive in the 70/[address] to the ED. G-Tube was replaced in the ER and confirmed placement. Patient had persistent hypotension which improved following IVF. Upon workup CXR showed a right middle lobe infiltrate and UA with 3+ leukoesterase and bacteria. He was givena dose of IV vancomycin and zosyn. history obtained from the charts - History Source History Provided By: Medical Record Limitations to Obtaining History: Clinical Condition - Past Medical History [employer]: Yes: Dementia, Seizure, Other (Anoxic Brain Injury) Cardio/Vascular: Yes: AFIB (paroxysmal), HTN, MS (? per niece - last end May w/ anoxic brain injury), Mitral Insufficiency (? rheumatic) Pulmonary: Yes: COPD (ventilator dependent with tracheostomy), Other (trach/ vent dependent) Gastrointestinal: Yes: Constipation, GERD, Other (Feeding gastrostomy (PEG) tube ) Hepatobiliary: Yes: Cholelithiasis, Hepatitis C (by other's history) Renal/: Yes: Neurogenic Bladder (with suprapubic cystostomy) Infectious Disease: Yes: Other (genital condylomata, ??typhoid fever) Psych: Yes: Addictions (alcoholism) ENT: Yes: Other (dry eye syndrome) Endocrine: Yes: Hypothyroidism - Past Surgical History Past Surgical History: Yes: Upper Endoscopy - Alcohol/Substance Use Hx Alcohol Use: Yes (in past only) History of Substance Use: reports: Heroin (in past only) - Smoking History Smoking history: Former smoker Have you smoked in the past 12 months: No If you are a former smoker, when did you quit?: 9 years ago - Social History Usual Living Arrangement: Long Term ADL: Support Services History of Recent Travel: No Home Medications - Allergies Allergies/Adverse Reactions: Allergies Allergy/AdvReac Type Severity Reaction Status Date / Time No Known Allergies Allergy Verified 04/26/19 00:32 - Home Medications Home Medications: Ambulatory Orders Acetaminophen [Tylenol .Extra-Strength -] 500 mg GT Q6H PRN 07/31/17 Hypromellose 0.5% Opth Soln [Artificial Tears] 1 drop OU QID 07/31/17 Metoprolol Tartrate [Lopressor -] 50 mg GT BID #60 tablet 08/10/17 Amiodarone HCl [Cordarone -] 200 mg GT DAILY 10/24/17 Apixaban [Eliquis -] 5 mg GT BID 10/24/17 Collagenase Clostridium Hist. [Santyl -] 1 applic TP TID PRN 10/24/17 Digoxin [Lanoxin -] 8,000 unit GT WEEKLY 10/24/17 Furosemide [Lasix -] 40 mg GT DAILY 10/24/17 Potassium Chloride [Potassium Chloride Oral Liquid] 20 meq GT DAILY 10/24/17 Zinc Oxide 20% Topical Oint 454 gm NR BID PRN 10/24/17 Albuterol 2.5/Ipratropium 0.5 [Duoneb -] 1 amp NEB TID 03/09/18 Ergocalciferol (Vitamin D2) [Calcidol] 6.25 ml PO WEEKLY 03/09/18 Mupirocin Ointment [Bactroban 2% Ointment -] 1 applic TP BID 03/09/18 Lactobacillus Acidophilus [Bacid -] 1 tab GT BID tab 03/12/18 Levothyroxine [Synthroid -] 250 mcg GT DAILY@0700 05/09/18 levETIRAcetam [Keppra Oral Solution -] 500 mg GT BID cup 05/18/18 Aspirin 81 mg GT DAILY 04/26/19 Review of Systems Unable to obtain ROS, reason: unable to obtain Physical Exam Vital Signs: Vital Signs Temperature 98.2 F 04/26/19 14:23 Pulse Rate 78 04/26/19 14:23 Respiratory Rate 14 04/26/19 14:51 Blood Pressure 105/67 04/26/19 14:23 O2 Sat by Pulse Oximetry (%) 100 04/26/19 11:31 Constitutional: Yes: Other Cardiovascular: Yes: Pulse Irregular Respiratory: Yes: Mechanically Ventilated, Other (trachestomy) Gastrointestinal: Yes: Normal Bowel Sounds, Soft, Other (peg) Musculoskeletal: Yes: WNL Extremities: Yes: WNL Neurological: Yes: Alert, Other Psychiatric: Yes: Other Labs: CBC, BMP 04/26/19 09:50 04/26/19 09:50 Imaging - Results Chest X-ray: Report Reviewed, Image Reviewed X-ray: Report Reviewed, Image Reviewed Assessment/Plan Problem List - Problems (1) Hypotension Code(s): I95.9 - HYPOTENSION, UNSPECIFIED Qualifiers: Hypotension type: unspecified hypotension type Qualified Code(s): I95.9 - Hypotension, unspecified (2) UTI (urinary tract infection) Code(s): N39.0 - URINARY TRACT INFECTION, SITE NOT SPECIFIED Qualifiers: Urinary tract infection type: site unspecified Hematuria presence: without hematuria Qualified Code(s): N39.0 - Urinary tract infection, site not specified (3) Anoxic brain injury Code(s): G93.1 - ANOXIC BRAIN DAMAGE, NOT ELSEWHERE CLASSIFIED (4) Atrial fibrillation Code(s): I48.91 - UNSPECIFIED ATRIAL FIBRILLATION Qualifiers: Atrial fibrillation type: persistent (5) Chronic respiratory failure Code(s): J96.10 - CHRONIC RESPIRATORY FAILURE, UNSP W HYPOXIA OR HYPERCAPNIA Qualifiers: Respiratory failure complication: unspecified whether with hypoxia or hypercapnia Qualified Code(s): J96.10 - Chronic respiratory failure, unspecified whether with hypoxia or hypercapnia (6) Dislodged gastrostomy tube Code(s): Z43.1 - ENCOUNTER FOR ATTENTION TO GASTROSTOMY (7) Quadriplegia, functional Code(s): R53.2 - FUNCTIONAL QUADRIPLEGIA (8) Rheumatic heart disease Code(s): I09.9 - RHEUMATIC HEART DISEASE, UNSPECIFIED (9) Suprapubic catheter dysfunction Code(s): T83.010A - BREAKDOWN (MECHANICAL) OF CYSTOSTOMY CATHETER, INIT ENCNTR (10) Tracheostomy tube present Code(s): Z93.0 - TRACHEOSTOMY STATUS plan will continue zosyn will stop vanco for now 'await cx reports rest as per the team
--- NOTE | 2019-04-26 16:21 | PN ---
Progress Note (short form) - Note Progress Note: Patient seen and examined at bedside for Decubitus ulcer. Patient's entire back examined with no evidence of ulcers/wounds. Please re-consult vascular surgery PRN.
[2019-04-26] MEDS ORDERED: DEXTROSE 5%-WATER - 50 ML IVPB ONE (17:07)
[2019-04-26] MEDS ORDERED: PIPERACILLIN/TAZOBACTAM 3.375 GM VIAL IVPB ONE (17:07)
[2019-04-26] MEDS: PIPERACILLIN/TAZOB 3.375 GM 3.375 GM in DEXTROSE 5%-WATER - 50 ML IVPB SCH (17:19)
[2019-04-26 19:26] VITALS: BMI 27.6
[2019-04-27] MEDS ORDERED: DEXTROSE 5%-WATER - 50 ML IVPB ONE ×3 (02:08→17:26)
[2019-04-27] MEDS ORDERED: PIPERACILLIN/TAZOBACTAM 3.375 GM VIAL IVPB ONE ×3 (02:08→17:26)
[2019-04-27] MEDS: SODIUM CHLORIDE 1,000 ML IV SCH ×2 (02:17→06:53)
[2019-04-27] MEDS: PIPERACILLIN/TAZOB 3.375 GM 3.375 GM in DEXTROSE 5%-WATER - 50 ML IVPB SCH ×3 (02:18→17:28)
[2019-04-27] MEDS: LEVOTHYROXINE NA 150 MCG TABLET GT SCH (06:54)
[2019-04-27] MEDS: ALBUTEROL SO4 2.5/IPRATROPIUM 0.5 INH SOL 3 ML VIAL.NEB. NEB SCH ×3 (08:05→21:19)
[2019-04-27 09:49] LABS: EOS % 6.7 % (0-4.5); HEMATOCRIT 26.5 % (35.4-49); HEMOGLOBIN 8.5 GM/dL (11.7-16.9); LYMPH % 14.1 % (8-40); MCH 28.5 pg (25.7-33.7); MCHC 32.3 g/dl (32.0-35.9); MEAN CELL VOLUME 88.4 fl (80-96); MEAN PLT VOLUME 10.1 fl (7.5-11.1); MONO % 7.5 % (3.8-10.2); NEUT % 70.7 % (42.8-82.8); PLATELET COUNT 121 K/MM3 (134-434); RBC 2.99 M/mm3 (4.00-5.60); RDW 16.8 % (11.9-15.9); WHITE BLOOD COUNT 3.8 K/mm3 (4.0-10.0)
[2019-04-27 10:03] LABS: ALBUMIN 2.9 g/dl (3.4-5.0); BILIRUBIN,TOTAL 0.5 mg/dL (0.2-1); BLOOD UREA NITROGEN 16.2 mg/dL (7-18); CALCIUM 8.5 mg/dL (8.5-10.1); CREATININE 0.6 mg/dL (0.55-1.3); POTASSIUM 3.3 mmol/L (3.5-5.1); TOT PROT 6.4 g/dl (6.4-8.2)
--- NOTE | 2019-04-27 10:47 | PN ---
Progress Note (short form) - Note Progress Note: chart is reviewed. comfortable non verbal Vital Signs - 24 hr 04/26/19 04/26/19 04/26/19 11:31 12:54 14:23 Temperature 98.2 F Pulse Rate 78 Pulse Rate [ 66 Apical] Respiratory 13 12 12 Rate Blood Pressure 105/67 Blood Pressure 101/50 L [Left Arm] O2 Sat by Pulse 100 Oximetry (%) 04/26/19 04/26/19 04/26/19 14:51 16:11 16:14 Temperature Pulse Rate 84 Pulse Rate [ Apical] Respiratory 14 12 Rate Blood Pressure Blood Pressure [Left Arm] O2 Sat by Pulse 99 Oximetry (%) 04/26/19 04/26/19 04/26/19 18:00 18:34 20:40 Temperature 97.6 F 98 F Pulse Rate 105 H 109 H Pulse Rate [ Apical] Respiratory 17 14 Rate Blood Pressure 105/72 107/84 Blood Pressure [Left Arm] O2 Sat by Pulse 95 Oximetry (%) 04/26/19 04/26/19 04/27/19 21:00 22:00 00:40 Temperature 98.1 F Pulse Rate 86 Pulse Rate [ Apical] Respiratory 18 18 12 Rate Blood Pressure 121/80 Blood Pressure [Left Arm] O2 Sat by Pulse 99 Oximetry (%) 04/27/19 04/27/19 04/27/19 04:12 06:00 08:28 Temperature 98.7 F Pulse Rate 86 97 H Pulse Rate [ Apical] Respiratory 13 18 16 Rate Blood Pressure 109/59 L Blood Pressure [Left Arm] O2 Sat by Pulse 100 Oximetry (%) Current Medications Generic Name Dose Route Start Last Admin Trade Name Freq PRN Reason Stop Dose Admin Acetaminophen 500 mg 04/26/19 03:41 Tylenol - GT Q6H PRN PAIN Albuterol/Ipratropium 1 amp 04/26/19 08:00 04/27/19 08:05 Duoneb - NEB 1 amp RTID JESUS Administration Amiodarone HCl 200 mg 04/26/19 10:00 04/26/19 09:20 Cordarone - GT 200 mg DAILY JESUS Administration Apixaban 5 mg 04/26/19 10:00 04/26/19 22:36 Eliquis - PEG 5 mg BID JESUS Administration Artificial Tears 1 drop 04/26/19 10:00 04/26/19 22:36 Artificial Tears OU 1 drop QID JESUS Administration Aspirin 81 mg 04/26/19 10:00 04/26/19 09:20 Asa - GT 81 mg DAILY JESUS Administration Collagenase 1 applic 04/26/19 10:00 04/26/19 12:00 Santyl - TP Not Given DAILY JESUS Protocol Ergocalciferol 50,000 units 05/01/19 10:00 Drisdol Oral Solution - GT Q7D JESUS Furosemide 40 mg 04/26/19 10:00 04/26/19 09:20 Lasix - GT 40 mg DAILY JESUS Administration Sodium Chloride 1,000 mls @ 75 mls/hr 04/26/19 03:45 04/27/19 06:53 Normal Saline - IV Not Given ASDIR JESUS Vancomycin HCl 1,000 mg in 250 mls @ 166.667 mls/hr 04/26/19 15:00 04/26/19 18:15 Vancomycin (Pre-Docked) IVPB 04/27/19 14:59 166.667 mls/hr Q24H JESUS Administration Piperacillin Sod/Tazobactam 50 mls @ 100 mls/hr 04/26/19 18:00 04/27/19 02:18 Sod 3.375 gm/ Dextrose IVPB 100 mls/hr Q8H-IV JESUS Administration Protocol Lactobacillus Acidophilus 1 tab 04/26/19 10:00 04/26/19 22:36 Bacid - GT 1 tab BID JESUS Administration Levetiracetam 500 mg 04/26/19 10:00 04/26/19 22:36 Keppra Oral Solution - GT 500 mg BID JESUS Administration Levothyroxine Sodium 150 mcg 04/26/19 07:00 04/27/19 06:54 Synthroid - GT 150 mcg DAILY@0700 JESUS Administration Multi-Ingredient Ointment 1 applic 04/26/19 04:15 Zinc Oxide TP PRN PRN HYGEINE Mupirocin 1 applic 04/26/19 10:00 04/26/19 22:39 Bactroban 2% Ointment - TP 1 applic BID JESUS Administration Laboratory Results - last 24 hr 04/26/19 04/26/19 04/26/19 09:50 09:50 14:15 WBC RBC Hgb Hct MCV MCH MCHC RDW Plt Count MPV Absolute Neuts (auto) Neutrophils % Lymphocytes % Monocytes % Eosinophils % Basophils % Nucleated RBC % Sodium Potassium Chloride Carbon Dioxide Anion Gap BUN Creatinine Est GFR (CKD-EPI)AfAm Est GFR (CKD-EPI)NonAf Random Glucose Calcium Iron 31 L TIBC 362 Iron Saturation 8 L Unsaturated IBC 331 H Total Bilirubin AST ALT Alkaline Phosphatase Total Protein Albumin TSH 3.17 D Stool Occult Blood Negative Digoxin 2.05 H 04/27/19 04/27/19 04/27/19 08:55 08:55 08:58 WBC 3.8 L RBC 2.99 L Hgb 8.5 L Hct 26.5 L MCV 88.4 MCH 28.5 MCHC 32.3 RDW 16.8 H Plt Count 121 L MPV 10.1 Absolute Neuts (auto) 2.7 Neutrophils % 70.7 Lymphocytes % 14.1 D Monocytes % 7.5 Eosinophils % 6.7 H Basophils % 1.0 Nucleated RBC % 0 Sodium 140 Potassium 3.3 L Chloride 106 Carbon Dioxide 30 Anion Gap 4 L BUN 16.2 Creatinine 0.6 Est GFR (CKD-EPI)AfAm 122.29 Est GFR (CKD-EPI)NonAf 105.51 Random Glucose 110 H Calcium 8.5 Iron TIBC Iron Saturation Unsaturated IBC Total Bilirubin 0.5 AST 18 ALT 26 Alkaline Phosphatase 88 Total Protein 6.4 Albumin 2.9 L TSH Stool Occult Blood Digoxin 0.68 L Constitutional: Yes: No Distress Eyes: Yes: Conjunctiva Clear, Other (fixed) Neck: Yes: Other (trach). No: Supple Cardiovascular: Yes: Pulse Irregular Respiratory: Yes: Diminished Gastrointestinal: Yes: Soft, Other (G tube)NT Genitourinary: Yes: Boucher Present- suprapubic Edema: No Problem List - Problems (1) Hypotension Code(s): I95.9 - HYPOTENSION, UNSPECIFIED Qualifiers: Hypotension type: unspecified hypotension type Qualified Code(s): I95.9 - Hypotension, unspecified (2) UTI (urinary tract infection) Code(s): N39.0 - URINARY TRACT INFECTION, SITE NOT SPECIFIED Qualifiers: Urinary tract infection type: site unspecified Hematuria presence: without hematuria Qualified Code(s): N39.0 - Urinary tract infection, site not specified (3) Anoxic brain injury Code(s): G93.1 - ANOXIC BRAIN DAMAGE, NOT ELSEWHERE CLASSIFIED (4) Atrial fibrillation Code(s): I48.91 - UNSPECIFIED ATRIAL FIBRILLATION Qualifiers: Atrial fibrillation type: persistent (5) Chronic respiratory failure Code(s): J96.10 - CHRONIC RESPIRATORY FAILURE, UNSP W HYPOXIA OR HYPERCAPNIA Qualifiers: Respiratory failure complication: unspecified whether with hypoxia or hypercapnia Qualified Code(s): J96.10 - Chronic respiratory failure, unspecified whether with hypoxia or hypercapnia (6) Dislodged gastrostomy tube Code(s): Z43.1 - ENCOUNTER FOR ATTENTION TO GASTROSTOMY (7) Quadriplegia, functional Code(s): R53.2 - FUNCTIONAL QUADRIPLEGIA (8) Rheumatic heart disease Code(s): I09.9 - RHEUMATIC HEART DISEASE, UNSPECIFIED (9) Suprapubic catheter dysfunction Code(s): T83.010A - BREAKDOWN (MECHANICAL) OF CYSTOSTOMY CATHETER, INIT ENCNTR (10) Tracheostomy tube present Code(s): Z93.0 - TRACHEOSTOMY STATUS Assessment/Plan In summary . ASSESSMENT/PLAN: Mr. Wood is a 64 year old male with a past medical history significant for anoxic brain injury secondary to ID, in a permanent vegetative state with a tracheostomy to ventilator, G-tube and quadraplegic, nonverbal with eyes open, hypertension, hepatitis C and atrial fibrillation (on Eliquis) who was sent to ER for G-tube replacement as it was displaced .G-tube was replaced in the ER and confirmed placement. He was noted to be hypotensive with blood pressure being 70/30's on the way to the ED. Patient had persistent hypotension which improved following IVF. Upon workup in ER CXR showed a right middle lobe infiltrate. UA with 3+ leukoesterase and bacteria. He was given a dose of IV vancomycin and zosyn. #1 Hypotension in setting of UTI Currently afebrile, UA w/ 3+ leukoesterase, neg nitrite, bacteria >4000, normal WBC and lactic acid --blood cultures negative urine cultures pending --Continue with IV Zosyn #2 Right Middle Lobe Infiltrate ? IV zosyn #3 Atrial Fibrillation Rate controlled --Continue with amiodarone -- restart Digoxin --Continue with Eliquis for anticoagulation #4 Hypertension Monitor #5 Anemia of Chronic Disease Monitor HCT continue Eliquis No active bleeding #6 Anoxia/ Brain Injury Continue with keppra Check keppra level #7 G-tube Displacement Replaced in ER Restart feeding , confirmed by xray graphics coordinator eval #8- hypokalemnia-- replace potassium #9- advance directives-- Pt is DNR per records in [place] condition guarded [facility] care
[2019-04-27] MEDS ORDERED: POTASSIUM CHLORIDE ORAL LIQUID 20 MEQ/15 ML GT ONE (10:49)
[2019-04-27] MEDS: APIXABAN 5 MG TABLET PEG SCH ×2 (10:54→23:26)
[2019-04-27] MEDS: levETIRAcetam 500 MG/5 ML ORAL SOLUTION (UNIT-DOSE CUPS) GT SCH ×2 (10:54→23:26)
[2019-04-27] MEDS: LACTOBACILLUS ACIDOPHILUS 1 TABLET GT SCH ×2 (10:54→23:25)
[2019-04-27] MEDS: AMIODARONE HCL 200 MG TABLET GT SCH (10:54)
[2019-04-27] MEDS: FUROSEMIDE 40 MG TABLET (FP) GT SCH (10:54)
[2019-04-27] MEDS: ASPIRIN 81 MG CHEWABLE TABLETS GT SCH (10:54)
[2019-04-27] MEDS: ARTIFICIAL TEARS (POLYVINYL ALCOHOL) OPTH DROPS OU SCH ×4 (10:55→23:26)
[2019-04-27] MEDS: MUPIROCIN 2% TOPICAL OINTMENT 22 GM TUBE TP SCH ×2 (10:55→23:26)
[2019-04-27] MEDS: COLLAGENASE CLOSTRIDIUM HIST. 30 GRAMS TUBE TP SCH (10:56)
--- NOTE | 2019-04-27 15:56 | PN ---
Progress Note, Physician History of Present Illness: Pt without distress, afebrile. - Current Medication List Current Medications: Active Medications Acetaminophen (Tylenol -) 500 mg GT Q6H PRN PRN Reason: PAIN Albuterol/Ipratropium (Duoneb -) 1 amp NEB RTID [facility] Last Admin: 04/27/19 13:28 Dose: 1 amp Amiodarone HCl (Cordarone -) 200 mg GT DAILY [facility] Last Admin: 04/27/19 10:54 Dose: 200 mg Apixaban (Eliquis -) 5 mg PEG BID [facility] Last Admin: 04/27/19 10:54 Dose: 5 mg Artificial Tears (Artificial Tears) 1 drop OU QID [facility] Last Admin: 04/27/19 15:00 Dose: 1 drop Aspirin (Asa -) 81 mg GT DAILY [facility] Last Admin: 04/27/19 10:54 Dose: 81 mg Collagenase (Santyl -) 1 applic TP DAILY [facility]; Protocol Last Admin: 04/27/19 10:56 Dose: Not Given Digoxin (Lanoxin -) 0.125 mg GT DAILY [facility] Ergocalciferol (Drisdol Oral Solution -) 50,000 units GT Q7D [facility] Furosemide (Lasix -) 40 mg GT DAILY [facility] Last Admin: 04/27/19 10:54 Dose: 40 mg Piperacillin Sod/Tazobactam (Sod 3.375 gm/ Dextrose) 50 mls @ 100 mls/hr IVPB Q8H-IV [facility]; Protocol Last Admin: 04/27/19 10:54 Dose: 100 mls/hr Lactobacillus Acidophilus (Bacid -) 1 tab GT BID [facility] Last Admin: 04/27/19 10:54 Dose: 1 tab Levetiracetam (Keppra Oral Solution -) 500 mg GT BID [facility] Last Admin: 04/27/19 10:54 Dose: 500 mg Levothyroxine Sodium (Synthroid -) 150 mcg GT DAILY@0700 [facility] Last Admin: 04/27/19 06:54 Dose: 150 mcg Multi-Ingredient Ointment (Zinc Oxide) 1 applic TP PRN PRN PRN Reason: HYGEINE Mupirocin (Bactroban 2% Ointment -) 1 applic TP BID [facility] Last Admin: 04/27/19 10:55 Dose: 1 applic - Objective Vital Signs: Vital Signs Temperature 98.5 F 04/27/19 10:00 Pulse Rate 86 04/27/19 12:03 Respiratory Rate 12 04/27/19 12:03 Blood Pressure 113/77 04/27/19 10:00 O2 Sat by Pulse Oximetry (%) 98 04/27/19 12:03 Constitutional: Yes: No Distress HENT: Yes: Atraumatic Cardiovascular: Yes: Regular Rate and Rhythm Respiratory: Yes: Mechanically Ventilated, Other (trach) Gastrointestinal: Yes: Normal Bowel Sounds, Soft Genitourinary: Yes: Other (SPC) Neurological: Yes: Weakness, Other (vegetative state) Labs: CBC, BMP 04/27/19 08:58 04/27/19 08:55 INR, PTT INR 1.23 (0.83-1.09) H 04/26/19 01:00 Microbiology 04/26/19 01:00 Urine - Urine Clean Catch Urine Culture - Final Contaminated: Please Repeat 04/26/19 01:00 Blood - Peripheral Venous Blood Culture - Preliminary NO GROWTH OBTAINED AFTER 24 HOURS, INCUBATION TO CONTINUE FOR 4 DAYS. 04/26/19 01:00 Blood - Peripheral Venous Blood Culture - Preliminary NO GROWTH OBTAINED AFTER 24 HOURS, INCUBATION TO CONTINUE FOR 4 DAYS. Assessment/Plan Hypotension Possible PNA UTI Anoxic brain injury Chronic resp failure Quadriplegia -- continue Zosyn -- repeat Urine cx -- blood culture no growth 24h -- continue monitor vitals, BP currently stable
[2019-04-28] MEDS ORDERED: DEXTROSE 5%-WATER - 50 ML IVPB ONE ×3 (03:04→17:03)
[2019-04-28] MEDS ORDERED: PIPERACILLIN/TAZOBACTAM 3.375 GM VIAL IVPB ONE ×3 (03:04→17:03)
[2019-04-28] MEDS: PIPERACILLIN/TAZOB 3.375 GM 3.375 GM in DEXTROSE 5%-WATER - 50 ML IVPB SCH ×3 (03:11→17:06)
[2019-04-28] MEDS: LEVOTHYROXINE NA 150 MCG TABLET GT SCH (06:13)
[2019-04-28] MEDS: ALBUTEROL SO4 2.5/IPRATROPIUM 0.5 INH SOL 3 ML VIAL.NEB. NEB SCH ×3 (07:55→21:35)
--- NOTE | 2019-04-28 08:51 | PN ---
Progress Note (short form) - Note Progress Note: chart is reviewed. comfortable non verbal resumed feeds Vital Signs - 24 hr 04/27/19 04/27/19 04/28/19 21:00 22:00 01:23 Temperature 98.5 F Pulse Rate 96 H Respiratory 14 18 12 Rate Blood Pressure 134/72 O2 Sat by Pulse 99 Oximetry (%) 04/28/19 04/28/19 04/28/19 02:00 05:00 06:00 Temperature 98.5 F 98.6 F Pulse Rate 98 H 106 H Respiratory 16 14 18 Rate Blood Pressure 140/63 105/72 O2 Sat by Pulse Oximetry (%) 04/28/19 04/28/19 04/28/19 08:53 09:00 10:00 Temperature 98.2 F Pulse Rate 77 98 H Respiratory 12 14 18 Rate Blood Pressure 106/71 O2 Sat by Pulse 98 98 Oximetry (%) 04/28/19 04/28/19 04/28/19 10:53 12:08 14:00 Temperature 98.7 F Pulse Rate 82 80 87 Respiratory 14 16 Rate Blood Pressure 108/65 O2 Sat by Pulse 98 Oximetry (%) 04/28/19 04/28/19 16:07 18:00 Temperature 98.9 F Pulse Rate 84 84 Respiratory 12 16 Rate Blood Pressure 105/63 O2 Sat by Pulse 100 Oximetry (%) Current Medications Generic Name Dose Route Start Last Admin Trade Name Freq PRN Reason Stop Dose Admin Acetaminophen 500 mg 04/26/19 03:41 Tylenol - GT Q6H PRN PAIN Albuterol/Ipratropium 1 amp 04/26/19 08:00 04/28/19 13:20 Duoneb - NEB 1 amp RTID JESUS Administration Amiodarone HCl 200 mg 04/26/19 10:00 04/28/19 10:54 Cordarone - GT 200 mg DAILY [facility] Administration Apixaban 5 mg 04/26/19 10:00 04/28/19 10:54 Eliquis - PEG 5 mg BID J[facility]US Administration Artificial Tears 1 drop 04/26/19 10:00 04/28/19 17:06 Artificial Tears OU 1 drop QID [facility]ESUS Administration Aspirin 81 mg 04/26/19 10:00 04/28/19 10:54 Asa - GT 81 mg DAILY [facility] Administration Collagenase 1 applic 04/26/19 10:00 04/28/19 10:55 Santyl - TP Not Given DAILY [facility] Protocol Digoxin 0.125 mg 04/28/19 10:00 04/28/19 10:53 Lanoxin - GT 0.125 mg DAILY [facility] Administration Ergocalciferol 50,000 units 05/01/19 10:00 Drisdol Oral Solution - GT Q7D [facility] Furosemide 40 mg 04/26/19 10:00 04/28/19 10:54 Lasix - GT 40 mg DAILY [facility] Administration Piperacillin Sod/Tazobactam 50 mls @ 100 mls/hr 04/26/19 18:00 04/28/19 17:06 Sod 3.375 gm/ Dextrose IVPB 100 mls/hr Q8H-IV [facility] Administration Protocol Lactobacillus Acidophilus 1 tab 04/26/19 10:00 04/28/19 10:54 Bacid - GT 1 tab BID [facility] Administration Levetiracetam 500 mg 04/26/19 10:00 04/28/19 10:53 Keppra Oral Solution - GT 500 mg BID [facility] Administration Levothyroxine Sodium 150 mcg 04/26/19 07:00 04/28/19 06:13 Synthroid - GT 150 mcg DAILY@0700 [facility] Administration Multi-Ingredient Ointment 1 applic 04/26/19 04:15 Zinc Oxide TP PRN PRN HYGEINE Mupirocin 1 applic 04/26/19 10:00 04/28/19 10:55 Bactroban 2% Ointment - TP 1 applic BID [facility] Administration Laboratory Results - last 24 hr 04/26/19 04/28/19 04/28/19 09:50 07:00 07:00 WBC 3.6 L RBC 2.92 L Hgb 8.5 L Hct 26.0 L MCV 89.3 MCH 29.0 MCHC 32.5 RDW 16.2 H Plt Count 135 MPV 10.3 Absolute Neuts (auto) 2.4 Neutrophils % 65.5 Lymphocytes % 19.5 D Monocytes % 7.7 Eosinophils % 6.6 H Basophils % 0.7 Nucleated RBC % 0 Sodium 140 Potassium 3.4 L Chloride 105 Carbon Dioxide 31 Anion Gap 4 L BUN 18.1 H Creatinine 0.6 Est GFR (CKD-EPI)AfAm 122.29 Est GFR (CKD-EPI)NonAf 105.51 Random Glucose 126 H Calcium 8.3 L Total Bilirubin 0.4 AST 19 ALT 25 Alkaline Phosphatase 84 Total Protein 6.3 L Albumin 2.8 L Levetiracetam 13.9 Microbiology 04/26/19 01:00 Blood Culture - Preliminary Blood - Peripheral Venous NO GROWTH OBTAINED AFTER 48 HOURS, INCUBATION TO CONTINUE FOR 3 DAYS. 04/26/19 01:00 Blood Culture - Preliminary Blood - Peripheral Venous NO GROWTH OBTAINED AFTER 48 HOURS, INCUBATION TO CONTINUE FOR 3 DAYS. Constitutional: Yes: No Distress Eyes: Yes: Conjunctiva Clear, Other (fixed) Neck: Yes: Other (trach). No: Supple Cardiovascular: Yes: Pulse Irregular Respiratory: Yes: Diminished Gastrointestinal: Yes: Soft, Other (G tube)NT Genitourinary: Yes: Boucher Present- suprapubic Edema: No Problem List - Problems (1) Hypotension Code(s): I95.9 - HYPOTENSION, UNSPECIFIED Qualifiers: Hypotension type: unspecified hypotension type Qualified Code(s): I95.9 - Hypotension, unspecified (2) UTI (urinary tract infection) Code(s): N39.0 - URINARY TRACT INFECTION, SITE NOT SPECIFIED Qualifiers: Urinary tract infection type: site unspecified Hematuria presence: without hematuria Qualified Code(s): N39.0 - Urinary tract infection, site not specified (3) Anoxic brain injury Code(s): G93.1 - ANOXIC BRAIN DAMAGE, NOT ELSEWHERE CLASSIFIED (4) Atrial fibrillation Code(s): I48.91 - UNSPECIFIED ATRIAL FIBRILLATION Qualifiers: Atrial fibrillation type: persistent (5) Chronic respiratory failure Code(s): J96.10 - CHRONIC RESPIRATORY FAILURE, UNSP W HYPOXIA OR HYPERCAPNIA Qualifiers: Respiratory failure complication: unspecified whether with hypoxia or hypercapnia Qualified Code(s): J96.10 - Chronic respiratory failure, unspecified whether with hypoxia or hypercapnia (6) Dislodged gastrostomy tube Code(s): Z43.1 - ENCOUNTER FOR ATTENTION TO GASTROSTOMY (7) Quadriplegia, functional Code(s): R53.2 - FUNCTIONAL QUADRIPLEGIA (8) Rheumatic heart disease Code(s): I09.9 - RHEUMATIC HEART DISEASE, UNSPECIFIED (9) Suprapubic catheter dysfunction Code(s): T83.010A - BREAKDOWN (MECHANICAL) OF CYSTOSTOMY CATHETER, INIT ENCNTR (10) Tracheostomy tube present Code(s): Z93.0 - TRACHEOSTOMY STATUS Assessment/Plan In summary . ASSESSMENT/PLAN: Mr. Wood is a 64 year old male with a past medical history significant for anoxic brain injury secondary to ME, in a permanent vegetative state with a tracheostomy to ventilator, G-tube and quadraplegic, nonverbal with eyes open, hypertension, hepatitis C and atrial fibrillation (on Eliquis) who was sent to ER for G-tube replacement as it was displaced .G-tube was replaced in the ER and confirmed placement. He was noted to be hypotensive with blood pressure being 70/30's on the way to the ED. Patient had persistent hypotension which improved following IVF. Upon workup in ER CXR showed a right middle lobe infiltrate. UA with 3+ leukoesterase and bacteria. He was given a dose of IV vancomycin and zosyn. #1 Hypotension in setting of UTI Currently afebrile, UA w/ 3+ leukoesterase, neg nitrite, bacteria >4000, normal WBC and lactic acid --blood cultures negative urine cultures repeated --Continue with IV Zosyn #2 Right Middle Lobe Infiltrate ? IV zosyn #3 Atrial Fibrillation Rate controlled --Continue with amiodarone -- restart Digoxin --Continue with Eliquis for anticoagulation #4 Hypertension Monitor BP stable #5 Anemia of Chronic Disease Monitor HCT continue Eliquis No active bleeding #6 Anoxia/ Brain Injury Continue with keppra #7 G-tube Displacement Replaced in ER Restart feeding , confirmed by xray polish maker trang noted #8- hypokalemnia-- replace potassium #9- advance directives-- Pt is DNR per records in [place]
[2019-04-28 08:59] LABS: BASO % 0.7 % (0-2.0); EOS % 6.6 % (0-4.5); HEMOGLOBIN 8.5 GM/dL (11.7-16.9); LYMPH % 19.5 % (8-40); MCHC 32.5 g/dl (32.0-35.9); MEAN CELL VOLUME 89.3 fl (80-96); MEAN PLT VOLUME 10.3 fl (7.5-11.1); MONO % 7.7 % (3.8-10.2); NEUT % 65.5 % (42.8-82.8); PLATELET COUNT 135 K/MM3 (134-434); RBC 2.92 M/mm3 (4.00-5.60); RDW 16.2 % (11.9-15.9); WHITE BLOOD COUNT 3.6 K/mm3 (4.0-10.0)
[2019-04-28 09:29] LABS: ALBUMIN 2.8 g/dl (3.4-5.0); BILIRUBIN,TOTAL 0.4 mg/dL (0.2-1); BLOOD UREA NITROGEN 18.1 mg/dL (7-18); CALCIUM 8.3 mg/dL (8.5-10.1); CREATININE 0.6 mg/dL (0.55-1.3); POTASSIUM 3.4 mmol/L (3.5-5.1); TOT PROT 6.3 g/dl (6.4-8.2)
[2019-04-28] MEDS: DIGOXIN 0.125 MG TABLET (FP) GT SCH (10:53)
[2019-04-28] MEDS: levETIRAcetam 500 MG/5 ML ORAL SOLUTION (UNIT-DOSE CUPS) GT SCH (10:53)
[2019-04-28] MEDS: AMIODARONE HCL 200 MG TABLET GT SCH (10:54)
[2019-04-28] MEDS: ARTIFICIAL TEARS (POLYVINYL ALCOHOL) OPTH DROPS OU SCH ×3 (10:54→17:06)
[2019-04-28] MEDS: FUROSEMIDE 40 MG TABLET (FP) GT SCH (10:54)
[2019-04-28] MEDS: ASPIRIN 81 MG CHEWABLE TABLETS GT SCH (10:54)
[2019-04-28] MEDS: APIXABAN 5 MG TABLET PEG SCH (10:54)
[2019-04-28] MEDS: LACTOBACILLUS ACIDOPHILUS 1 TABLET GT SCH (10:54)
[2019-04-28] MEDS: COLLAGENASE CLOSTRIDIUM HIST. 30 GRAMS TUBE TP SCH (10:55)
[2019-04-28] MEDS: MUPIROCIN 2% TOPICAL OINTMENT 22 GM TUBE TP SCH (10:55)
--- NOTE | 2019-04-28 18:02 | PN ---
Progress Note, Physician History of Present Illness: Pt is afebrile, without distress. No new events reported. - Current Medication List Current Medications: Active Medications Acetaminophen (Tylenol -) 500 mg GT Q6H PRN PRN Reason: PAIN Albuterol/Ipratropium (Duoneb -) 1 amp NEB RTID [facility] Last Admin: 04/28/19 13:20 Dose: 1 amp Amiodarone HCl (Cordarone -) 200 mg GT DAILY [facility] Last Admin: 04/28/19 10:54 Dose: 200 mg Apixaban (Eliquis -) 5 mg PEG BID [facility] Last Admin: 04/28/19 10:54 Dose: 5 mg Artificial Tears (Artificial Tears) 1 drop OU QID [facility] Last Admin: 04/28/19 17:06 Dose: 1 drop Aspirin (Asa -) 81 mg GT DAILY [facility] Last Admin: 04/28/19 10:54 Dose: 81 mg Collagenase (Santyl -) 1 applic TP DAILY [facility]; Protocol Last Admin: 04/28/19 10:55 Dose: Not Given Digoxin (Lanoxin -) 0.125 mg GT DAILY [facility] Last Admin: 04/28/19 10:53 Dose: 0.125 mg Ergocalciferol (Drisdol Oral Solution -) 50,000 units GT Q7D [facility] Furosemide (Lasix -) 40 mg GT DAILY [facility] Last Admin: 04/28/19 10:54 Dose: 40 mg Piperacillin Sod/Tazobactam (Sod 3.375 gm/ Dextrose) 50 mls @ 100 mls/hr IVPB Q8H-IV [facility]; Protocol Last Admin: 04/28/19 17:06 Dose: 100 mls/hr Lactobacillus Acidophilus (Bacid -) 1 tab GT BID [facility] Last Admin: 04/28/19 10:54 Dose: 1 tab Levetiracetam (Keppra Oral Solution -) 500 mg GT BID [facility] Last Admin: 04/28/19 10:53 Dose: 500 mg Levothyroxine Sodium (Synthroid -) 150 mcg GT DAILY@0700 [facility] Last Admin: 04/28/19 06:13 Dose: 150 mcg Multi-Ingredient Ointment (Zinc Oxide) 1 applic TP PRN PRN PRN Reason: HYGEINE Mupirocin (Bactroban 2% Ointment -) 1 applic TP BID [facility] Last Admin: 04/28/19 10:55 Dose: 1 applic - Objective Vital Signs: Vital Signs Temperature 98.7 F 04/28/19 14:00 Pulse Rate 84 04/28/19 16:07 Respiratory Rate 12 04/28/19 16:07 Blood Pressure 108/65 04/28/19 14:00 O2 Sat by Pulse Oximetry (%) 100 04/28/19 16:07 Constitutional: Yes: No Distress Cardiovascular: Yes: Regular Rate and Rhythm Respiratory: Yes: Mechanically Ventilated, Other (trach) Genitourinary: Yes: WNL Extremities: Yes: Other (contracted) Integumentary: Yes: WNL Labs: CBC, BMP 04/28/19 07:00 04/28/19 07:00 INR, PTT INR 1.23 (0.83-1.09) H 04/26/19 01:00 Microbiology 04/26/19 01:00 Blood - Peripheral Venous Blood Culture - Preliminary NO GROWTH OBTAINED AFTER 48 HOURS, INCUBATION TO CONTINUE FOR 3 DAYS. 04/26/19 01:00 Blood - Peripheral Venous Blood Culture - Preliminary NO GROWTH OBTAINED AFTER 48 HOURS, INCUBATION TO CONTINUE FOR 3 DAYS. 04/26/19 01:00 Urine - Urine Clean Catch Urine Culture - Final Contaminated: Please Repeat Assessment/Plan Hypotension Possible PNA UTI Anoxic brain injury Chronic resp failure Quadriplegia -- continue Zosyn -- f/u results of repeat urine cx -- blood culture no growth so far -- continue monitor vitals, stable at this time
[2019-04-29] MEDS: LACTOBACILLUS ACIDOPHILUS 1 TABLET GT SCH ×3 (00:42→22:41)
[2019-04-29] MEDS: levETIRAcetam 500 MG/5 ML ORAL SOLUTION (UNIT-DOSE CUPS) GT SCH ×3 (00:42→22:41)
[2019-04-29] MEDS: APIXABAN 5 MG TABLET PEG SCH ×3 (00:42→22:41)
[2019-04-29] MEDS: ARTIFICIAL TEARS (POLYVINYL ALCOHOL) OPTH DROPS OU SCH ×5 (00:43→22:40)
[2019-04-29] MEDS: MUPIROCIN 2% TOPICAL OINTMENT 22 GM TUBE TP SCH ×3 (00:43→22:41)
[2019-04-29] MEDS ORDERED: PIPERACILLIN/TAZOBACTAM 3.375 GM VIAL IVPB ONE ×3 (01:11→17:12)
[2019-04-29] MEDS ORDERED: DEXTROSE 5%-WATER - 50 ML IVPB ONE ×3 (01:11→17:12)
[2019-04-29] MEDS: PIPERACILLIN/TAZOB 3.375 GM 3.375 GM in DEXTROSE 5%-WATER - 50 ML IVPB SCH ×3 (01:21→17:28)
[2019-04-29] MEDS: LEVOTHYROXINE NA 150 MCG TABLET GT SCH (06:44)
[2019-04-29] MEDS: ALBUTEROL SO4 2.5/IPRATROPIUM 0.5 INH SOL 3 ML VIAL.NEB. NEB SCH ×3 (07:35→21:30)
[2019-04-29 09:00] LABS: HEMATOCRIT 25.6 % (35.4-49); HEMOGLOBIN 8.2 GM/dL (11.7-16.9); MCH 28.3 pg (25.7-33.7); MCHC 32.2 g/dl (32.0-35.9); MEAN PLT VOLUME 10.2 fl (7.5-11.1); PLATELET COUNT 132 K/MM3 (134-434); RBC 2.91 M/mm3 (4.00-5.60); RDW 16.6 % (11.9-15.9); WHITE BLOOD COUNT 4.1 K/mm3 (4.0-10.0)
[2019-04-29 09:31] LABS: BLOOD UREA NITROGEN 19.6 mg/dL (7-18); CALCIUM 8.4 mg/dL (8.5-10.1); CREATININE 0.6 mg/dL (0.55-1.3); POTASSIUM 3.4 mmol/L (3.5-5.1)
[2019-04-29] MEDS ORDERED: POTASSIUM CHLORIDE ORAL LIQUID 20 MEQ/15 ML GT ONE (10:26)
--- NOTE | 2019-04-29 10:29 | PN ---
Progress Note (short form) - Note Progress Note: Pt seen/ examined chart reviewed comfortable no distress Vital Signs Temp 98.7 F 04/29/19 06:00 Pulse 84 04/29/19 08:12 Resp 12 04/29/19 08:12 BP 96/61 04/29/19 06:00 Pulse Ox 98 04/29/19 08:12 Intake & Output 04/28/19 04/28/19 04/29/19 11:59 23:59 11:59 Intake Total 0 1000 0 Output Total 200 1400 100 Balance -200 -400 -100 Intake: IVPB 200 Oral 0 0 0 Tube Feeding 500 Tube Irrigant 300 Output: Urine 200 1400 100 Boucher 200 1400 100 Other: Voiding Method Indwelling Catheter Indwelling Catheter Indwelling Catheter Bowel Movement Yes Yes Yes # Bowel Movements 1 1 1 Active Medications Acetaminophen (Tylenol -) 500 mg GT Q6H PRN PRN Reason: PAIN Albuterol/Ipratropium (Duoneb -) 1 amp NEB RTID [facility] Last Admin: 04/29/19 07:35 Dose: 1 amp Amiodarone HCl (Cordarone -) 200 mg GT DAILY [facility] Last Admin: 04/28/19 10:54 Dose: 200 mg Apixaban (Eliquis -) 5 mg PEG BID [facility] Last Admin: 04/29/19 00:42 Dose: 5 mg Artificial Tears (Artificial Tears) 1 drop OU QID [facility] Last Admin: 04/29/19 00:43 Dose: 1 drop Aspirin (Asa -) 81 mg GT DAILY [facility] Last Admin: 04/28/19 10:54 Dose: 81 mg Collagenase (Santyl -) 1 applic TP DAILY [facility]; Protocol Last Admin: 04/28/19 10:55 Dose: Not Given Digoxin (Lanoxin -) 0.125 mg GT DAILY [facility] Last Admin: 04/28/19 10:53 Dose: 0.125 mg Ergocalciferol (Drisdol Oral Solution -) 50,000 units GT Q7D [facility] Furosemide (Lasix -) 40 mg GT DAILY [facility] Last Admin: 04/28/19 10:54 Dose: 40 mg Piperacillin Sod/Tazobactam (Sod 3.375 gm/ Dextrose) 50 mls @ 100 mls/hr IVPB Q8H-IV [facility]; Protocol Last Admin: 04/29/19 01:21 Dose: 100 mls/hr Lactobacillus Acidophilus (Bacid -) 1 tab GT BID [facility] Last Admin: 04/29/19 00:42 Dose: 1 tab Levetiracetam (Keppra Oral Solution -) 500 mg GT BID [facility] Last Admin: 04/29/19 00:42 Dose: 500 mg Levothyroxine Sodium (Synthroid -) 150 mcg GT DAILY@0700 [facility] Last Admin: 04/29/19 06:44 Dose: 150 mcg Multi-Ingredient Ointment (Zinc Oxide) 1 applic TP PRN PRN PRN Reason: HYGEINE Mupirocin (Bactroban 2% Ointment -) 1 applic TP BID [facility] Last Admin: 04/29/19 00:43 Dose: 1 applic Potassium Chloride (Potassium Chloride Oral Liquid) 40 meq GT ONCE ONE Stop: 04/29/19 10:27 CBC, BMP 04/29/19 08:35 04/29/19 08:35 Physical Exam Constitutional: Yes: No Distress. Non verbal Eyes: Yes: Conjunctiva Clear, Other (fixed) Neck: Yes: Other (trach). No: Supple Cardiovascular: Yes: Pulse Irregular Respiratory: Yes: Diminished Gastrointestinal: Yes: Soft, Other (G tube)NT Genitourinary: Yes: Boucher Present- supra pubic Edema: No Problem List - Problems (1) Hypotension Code(s): I95.9 - HYPOTENSION, UNSPECIFIED Qualifiers: Hypotension type: unspecified hypotension type Qualified Code(s): I95.9 - Hypotension, unspecified (2) UTI (urinary tract infection) Code(s): N39.0 - URINARY TRACT INFECTION, SITE NOT SPECIFIED Qualifiers: Urinary tract infection type: site unspecified Hematuria presence: without hematuria Qualified Code(s): N39.0 - Urinary tract infection, site not specified (3) Anoxic brain injury Code(s): G93.1 - ANOXIC BRAIN DAMAGE, NOT ELSEWHERE CLASSIFIED (4) Atrial fibrillation Code(s): I48.91 - UNSPECIFIED ATRIAL FIBRILLATION Qualifiers: Atrial fibrillation type: persistent (5) Chronic respiratory failure Code(s): J96.10 - CHRONIC RESPIRATORY FAILURE, UNSP W HYPOXIA OR HYPERCAPNIA Qualifiers: Respiratory failure complication: unspecified whether with hypoxia or hypercapnia Qualified Code(s): J96.10 - Chronic respiratory failure, unspecified whether with hypoxia or hypercapnia (6) Dislodged gastrostomy tube Code(s): Z43.1 - ENCOUNTER FOR ATTENTION TO GASTROSTOMY (7) Quadriplegia, functional Code(s): R53.2 - FUNCTIONAL QUADRIPLEGIA (8) Rheumatic heart disease Code(s): I09.9 - RHEUMATIC HEART DISEASE, UNSPECIFIED (9) Suprapubic catheter dysfunction Code(s): T83.010A - BREAKDOWN (MECHANICAL) OF CYSTOSTOMY CATHETER, INIT ENCNTR (10) Tracheostomy tube present Code(s): Z93.0 - TRACHEOSTOMY STATUS Assessment/Plan Mr. 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 He was noted to be hypotensive with blood pressure being 70/30's on the way to the ED. Patient had persistent hypotension which improved following IVF. Upon workup in ER CXR showed a right middle lobe infiltrate. UA with 3+ leukoesterase and bacteria. He was given a dose of IV vancomycin and zosyn. #1 Hypotension in setting of UTI Currently afebrile, UA w/ 3+ leukoesterase, neg nitrite, bacteria >4000, normal WBC and lactic acid --blood cultures negative urine cultures repeated --Continue with IV Zosyn - Hold Lasix fi bp<100/60 - d/w RN #2 Right Middle Lobe Infiltrate ? 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 operations supervisor trang noted #8- hypokalemnia-- replace potassium #9- advance directives-- Pt is DNR per records in [place] If afebrile -- Consider d/c in am Will follow Problem List - Problems (1) Hypotension Code(s): I95.9 - HYPOTENSION, UNSPECIFIED Qualifiers: Hypotension type: unspecified hypotension type Qualified Code(s): I95.9 - Hypotension, unspecified (2) UTI (urinary tract infection) Code(s): N39.0 - URINARY TRACT INFECTION, SITE NOT SPECIFIED Qualifiers: Urinary tract infection type: site unspecified Hematuria presence: without hematuria Qualified Code(s): N39.0 - Urinary tract infection, site not specified (3) Anoxic brain injury Code(s): G93.1 - ANOXIC BRAIN DAMAGE, NOT ELSEWHERE CLASSIFIED (4) Atrial fibrillation Code(s): I48.91 - UNSPECIFIED ATRIAL FIBRILLATION Qualifiers: Atrial fibrillation type: persistent (5) Chronic respiratory failure Code(s): J96.10 - CHRONIC RESPIRATORY FAILURE, UNSP W HYPOXIA OR HYPERCAPNIA Qualifiers: Respiratory failure complication: unspecified whether with hypoxia or hypercapnia Qualified Code(s): J96.10 - Chronic respiratory failure, unspecified whether with hypoxia or hypercapnia (6) Dislodged gastrostomy tube Code(s): Z43.1 - ENCOUNTER FOR ATTENTION TO GASTROSTOMY (7) Quadriplegia, functional Code(s): R53.2 - FUNCTIONAL QUADRIPLEGIA (8) Rheumatic heart disease Code(s): I09.9 - RHEUMATIC HEART DISEASE, UNSPECIFIED (9) Suprapubic catheter dysfunction Code(s): T83.010A - BREAKDOWN (MECHANICAL) OF CYSTOSTOMY CATHETER, INIT ENCNTR (10) Tracheostomy tube present Code(s): Z93.0 - TRACHEOSTOMY STATUS
[2019-04-29] MEDS ORDERED: PT OWN MED DRAWER 7, Y5N ONE (10:31)
[2019-04-29] MEDS: DIGOXIN 0.125 MG TABLET (FP) GT SCH (11:08)
[2019-04-29] MEDS: ASPIRIN 81 MG CHEWABLE TABLETS GT SCH (11:10)
[2019-04-29] MEDS: AMIODARONE HCL 200 MG TABLET GT SCH (11:11)
[2019-04-29] MEDS: FUROSEMIDE 40 MG TABLET (FP) GT SCH (11:12)
[2019-04-29] MEDS: COLLAGENASE CLOSTRIDIUM HIST. 30 GRAMS TUBE TP SCH (13:56)
--- NOTE | 2019-04-29 14:25 | PN ---
Progress Note, Physician History of Present Illness: patient stable no new issues - Current Medication List Current Medications: Active Medications Acetaminophen (Tylenol -) 500 mg GT Q6H PRN PRN Reason: PAIN Albuterol/Ipratropium (Duoneb -) 1 amp NEB RTID [facility] Last Admin: 04/29/19 13:53 Dose: 1 amp Amiodarone HCl (Cordarone -) 200 mg GT DAILY [facility] Last Admin: 04/29/19 11:11 Dose: Not Given Apixaban (Eliquis -) 5 mg PEG BID [facility] Last Admin: 04/29/19 11:09 Dose: 5 mg Artificial Tears (Artificial Tears) 1 drop OU QID [facility] Last Admin: 04/29/19 13:57 Dose: 1 drop Aspirin (Asa -) 81 mg GT DAILY [facility] Last Admin: 04/29/19 11:10 Dose: 81 mg Collagenase (Santyl -) 1 applic TP DAILY [facility]; Protocol Last Admin: 04/29/19 13:56 Dose: 1 applic Digoxin (Lanoxin -) 0.125 mg GT DAILY [facility] Last Admin: 04/29/19 11:08 Dose: 0.125 mg Ergocalciferol (Drisdol Oral Solution -) 50,000 units GT Q7D [facility] Furosemide (Lasix -) 40 mg GT DAILY [facility] Last Admin: 04/29/19 11:12 Dose: Not Given Piperacillin Sod/Tazobactam (Sod 3.375 gm/ Dextrose) 50 mls @ 100 mls/hr IVPB Q8H-IV [facility]; Protocol Last Admin: 04/29/19 11:12 Dose: 100 mls/hr Lactobacillus Acidophilus (Bacid -) 1 tab GT BID [facility] Last Admin: 04/29/19 11:10 Dose: 1 tab Levetiracetam (Keppra Oral Solution -) 500 mg GT BID [facility] Last Admin: 04/29/19 11:09 Dose: 500 mg Levothyroxine Sodium (Synthroid -) 150 mcg GT DAILY@0700 [facility] Last Admin: 04/29/19 06:44 Dose: 150 mcg Multi-Ingredient Ointment (Zinc Oxide) 1 applic TP PRN PRN PRN Reason: HYGEINE Mupirocin (Bactroban 2% Ointment -) 1 applic TP BID [facility] Last Admin: 04/29/19 11:11 Dose: Not Given - Objective Vital Signs: Vital Signs Temperature 99.1 F 04/29/19 10:00 Pulse Rate 92 H 04/29/19 11:08 Respiratory Rate 12 04/29/19 13:53 Blood Pressure 107/58 L 04/29/19 10:00 O2 Sat by Pulse Oximetry (%) 98 04/29/19 08:12 Constitutional: Yes: No Distress, Calm Cardiovascular: Yes: S1, S2 Respiratory: Yes: Regular, Mechanically Ventilated, Other Gastrointestinal: Yes: Normal Bowel Sounds, Soft, Other (peg tube) Musculoskeletal: Yes: WNL Extremities: Yes: Other Neurological: Yes: Other Psychiatric: Yes: Other Labs: CBC, BMP 04/29/19 08:35 04/29/19 08:35 INR, PTT INR 1.23 (0.83-1.09) H 04/26/19 01:00 Assessment/Plan Problem List - Problems (1) Hypotension Code(s): I95.9 - HYPOTENSION, UNSPECIFIED Qualifiers: Hypotension type: unspecified hypotension type Qualified Code(s): I95.9 - Hypotension, unspecified (2) UTI (urinary tract infection) Code(s): N39.0 - URINARY TRACT INFECTION, SITE NOT SPECIFIED Qualifiers: Urinary tract infection type: site unspecified Hematuria presence: without hematuria Qualified Code(s): N39.0 - Urinary tract infection, site not specified (3) Anoxic brain injury Code(s): G93.1 - ANOXIC BRAIN DAMAGE, NOT ELSEWHERE CLASSIFIED (4) Atrial fibrillation Code(s): I48.91 - UNSPECIFIED ATRIAL FIBRILLATION Qualifiers: Atrial fibrillation type: persistent (5) Chronic respiratory failure Code(s): J96.10 - CHRONIC RESPIRATORY FAILURE, UNSP W HYPOXIA OR HYPERCAPNIA Qualifiers: Respiratory failure complication: unspecified whether with hypoxia or hypercapnia Qualified Code(s): J96.10 - Chronic respiratory failure, unspecified whether with hypoxia or hypercapnia (6) Dislodged gastrostomy tube Code(s): Z43.1 - ENCOUNTER FOR ATTENTION TO GASTROSTOMY (7) Quadriplegia, functional Code(s): R53.2 - FUNCTIONAL QUADRIPLEGIA (8) Rheumatic heart disease Code(s): I09.9 - RHEUMATIC HEART DISEASE, UNSPECIFIED (9) Suprapubic catheter dysfunction Code(s): T83.010A - BREAKDOWN (MECHANICAL) OF CYSTOSTOMY CATHETER, INIT ENCNTR (10) Tracheostomy tube present Code(s): Z93.0 - TRACHEOSTOMY STATUS plan continue abx await for cx report rest as per the team asp precautions
[2019-04-30] MEDS ORDERED: PIPERACILLIN/TAZOBACTAM 3.375 GM VIAL IVPB ONE ×3 (01:09→17:10)
[2019-04-30] MEDS ORDERED: DEXTROSE 5%-WATER - 50 ML IVPB ONE ×3 (01:09→17:10)
[2019-04-30] MEDS: PIPERACILLIN/TAZOB 3.375 GM 3.375 GM in DEXTROSE 5%-WATER - 50 ML IVPB SCH ×3 (01:13→17:17)
[2019-04-30] MEDS: LEVOTHYROXINE NA 150 MCG TABLET GT SCH (06:07)
[2019-04-30] MEDS: ALBUTEROL SO4 2.5/IPRATROPIUM 0.5 INH SOL 3 ML VIAL.NEB. NEB SCH ×3 (07:20→20:25)
[2019-04-30] MEDS: ARTIFICIAL TEARS (POLYVINYL ALCOHOL) OPTH DROPS OU SCH ×4 (09:59→22:52)
[2019-04-30] MEDS: FUROSEMIDE 40 MG TABLET (FP) GT SCH (10:00)
[2019-04-30] MEDS: ASPIRIN 81 MG CHEWABLE TABLETS GT SCH (10:00)
[2019-04-30] MEDS: levETIRAcetam 500 MG/5 ML ORAL SOLUTION (UNIT-DOSE CUPS) GT SCH ×2 (10:00→22:52)
[2019-04-30] MEDS: DIGOXIN 0.125 MG TABLET (FP) GT SCH (10:00)
[2019-04-30] MEDS: APIXABAN 5 MG TABLET PEG SCH ×2 (10:01→22:52)
[2019-04-30] MEDS: LACTOBACILLUS ACIDOPHILUS 1 TABLET GT SCH ×2 (10:01→22:52)
[2019-04-30] MEDS: AMIODARONE HCL 200 MG TABLET GT SCH (10:01)
[2019-04-30] MEDS: MUPIROCIN 2% TOPICAL OINTMENT 22 GM TUBE TP SCH ×2 (10:02→22:52)
--- NOTE | 2019-04-30 12:04 | PN ---
Progress Note (short form) - Note Progress Note: chart is reviewed. comfortable non verbal low grade temp has dark urine Vital Signs - 24 hr 04/29/19 04/29/19 04/29/19 13:53 14:00 16:01 Temperature 99.6 F Pulse Rate 92 H Respiratory 12 14 12 Rate Blood Pressure 104/53 L O2 Sat by Pulse Oximetry (%) 04/29/19 04/29/19 04/29/19 18:00 20:45 21:00 Temperature 99.5 F Pulse Rate 102 H Respiratory 14 15 12 Rate Blood Pressure 110/73 O2 Sat by Pulse Oximetry (%) 04/30/19 04/30/19 04/30/19 00:00 00:20 04:28 Temperature Pulse Rate 85 Respiratory 16 12 13 Rate Blood Pressure 127/68 O2 Sat by Pulse Oximetry (%) 04/30/19 04/30/19 04/30/19 07:24 08:22 09:11 Temperature 98.3 F 98.3 F Pulse Rate 91 H 80 98 H Respiratory 18 12 14 Rate Blood Pressure 103/60 112/73 O2 Sat by Pulse 100 Oximetry (%) 04/30/19 10:00 Temperature Pulse Rate 98 H Respiratory Rate Blood Pressure O2 Sat by Pulse Oximetry (%) Current Medications Generic Name Dose Route Start Last Admin Trade Name Freq PRN Reason Stop Dose Admin Acetaminophen 500 mg 04/26/19 03:41 Tylenol - GT Q6H PRN PAIN Albuterol/Ipratropium 1 amp 04/26/19 08:00 04/30/19 07:20 Duoneb - NEB 1 amp RTID [facility] Administration Amiodarone HCl 200 mg 04/26/19 10:00 04/30/19 10:01 Cordarone - GT 200 mg DAILY [facility] Administration Apixaban 5 mg 04/26/19 10:00 04/30/19 10:01 Eliquis - PEG 5 mg BID [facility] Administration Artificial Tears 1 drop 04/26/19 10:00 04/30/19 09:59 Artificial Tears OU 1 drop QID [facility] Administration Aspirin 81 mg 04/26/19 10:00 04/30/19 10:00 Asa - GT 81 mg DAILY [facility] Administration Collagenase 1 applic 04/26/19 10:00 04/29/19 13:56 Santyl - TP 1 applic DAILY [facility] Administration Protocol Digoxin 0.125 mg 04/28/19 10:00 04/30/19 10:00 Lanoxin - GT 0.125 mg DAILY [facility] Administration Ergocalciferol 50,000 units 05/01/19 10:00 Drisdol Oral Solution - GT Q7D [facility] Furosemide 40 mg 04/26/19 10:00 04/30/19 10:00 Lasix - GT 40 mg DAILY [facility] Administration Piperacillin Sod/Tazobactam 50 mls @ 100 mls/hr 04/26/19 18:00 04/30/19 09:59 Sod 3.375 gm/ Dextrose IVPB 100 mls/hr Q8H-IV [facility] Administration Protocol Lactobacillus Acidophilus 1 tab 04/26/19 10:00 04/30/19 10:01 Bacid - GT 1 tab BID [facility] Administration Levetiracetam 500 mg 04/26/19 10:00 04/30/19 10:00 Keppra Oral Solution - GT 500 mg BID [facility] Administration Levothyroxine Sodium 150 mcg 04/26/19 07:00 04/30/19 06:07 Synthroid - GT 150 mcg DAILY@0700 [facility] Administration Multi-Ingredient Ointment 1 applic 04/26/19 04:15 Zinc Oxide TP PRN PRN HYGEINE Mupirocin 1 applic 04/30/19 12:02 Bactroban 2% Ointment - TP BID [facility] Potassium Chloride 40 meq 04/30/19 12:15 Potassium Chloride Oral Liquid PO DAILY [facility] Constitutional: Yes: No Distress Eyes: Yes: Conjunctiva Clear, Other (fixed) Neck: Yes: Other (trach). No: Supple Cardiovascular: Yes: Pulse Irregular Respiratory: Yes: Diminished Gastrointestinal: Yes: Soft, Other (G tube)NT Genitourinary: Yes: Boucher Present- suprapubic Edema: No Problem List - Problems (1) Hypotension Code(s): I95.9 - HYPOTENSION, UNSPECIFIED Qualifiers: Hypotension type: unspecified hypotension type Qualified Code(s): I95.9 - Hypotension, unspecified (2) UTI (urinary tract infection) Code(s): N39.0 - URINARY TRACT INFECTION, SITE NOT SPECIFIED Qualifiers: Urinary tract infection type: site unspecified Hematuria presence: without hematuria Qualified Code(s): N39.0 - Urinary tract infection, site not specified (3) Anoxic brain injury Code(s): G93.1 - ANOXIC BRAIN DAMAGE, NOT ELSEWHERE CLASSIFIED (4) Atrial fibrillation Code(s): I48.91 - UNSPECIFIED ATRIAL FIBRILLATION Qualifiers: Atrial fibrillation type: persistent (5) Chronic respiratory failure Code(s): J96.10 - CHRONIC RESPIRATORY FAILURE, UNSP W HYPOXIA OR HYPERCAPNIA Qualifiers: Respiratory failure complication: unspecified whether with hypoxia or hypercapnia Qualified Code(s): J96.10 - Chronic respiratory failure, unspecified whether with hypoxia or hypercapnia (6) Dislodged gastrostomy tube Code(s): Z43.1 - ENCOUNTER FOR ATTENTION TO GASTROSTOMY (7) Quadriplegia, functional Code(s): R53.2 - FUNCTIONAL QUADRIPLEGIA (8) Rheumatic heart disease Code(s): I09.9 - RHEUMATIC HEART DISEASE, UNSPECIFIED (9) Suprapubic catheter dysfunction Code(s): T83.010A - BREAKDOWN (MECHANICAL) OF CYSTOSTOMY CATHETER, INIT ENCNTR (10) Tracheostomy tube present Code(s): Z93.0 - TRACHEOSTOMY STATUS Assessment/Plan In summary . ASSESSMENT/PLAN: Mr. 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 He was noted to be hypotensive with blood pressure being 70/30's on the way to the ED. Patient had persistent hypotension which improved following IVF. Upon workup in ER CXR showed a right middle lobe infiltrate. UA with 3+ leukoesterase and bacteria. He was given a dose of IV vancomycin and zosyn. #1 Hypotension in setting of UTI Currently afebrile, UA w/ 3+ leukoesterase, neg nitrite, bacteria >4000, normal WBC and lactic acid --blood cultures negative urine cultures repeated --Continue with IV Zosyn #2 Right Middle Lobe Infiltrate ? 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
--- NOTE | 2019-04-30 12:18 | PN ---
Progress Note, Physician History of Present Illness: stable low grade temp awaiting urine cx - Current Medication List Current Medications: Active Medications Acetaminophen (Tylenol -) 500 mg GT Q6H PRN PRN Reason: PAIN Albuterol/Ipratropium (Duoneb -) 1 amp NEB RTID [facility] Last Admin: 04/30/19 07:20 Dose: 1 amp Amiodarone HCl (Cordarone -) 200 mg GT DAILY [facility] Last Admin: 04/30/19 10:01 Dose: 200 mg Apixaban (Eliquis -) 5 mg PEG BID [facility] Last Admin: 04/30/19 10:01 Dose: 5 mg Artificial Tears (Artificial Tears) 1 drop OU QID [facility] Last Admin: 04/30/19 09:59 Dose: 1 drop Aspirin (Asa -) 81 mg GT DAILY [facility] Last Admin: 04/30/19 10:00 Dose: 81 mg Collagenase (Santyl -) 1 applic TP DAILY [facility]; Protocol Last Admin: 04/29/19 13:56 Dose: 1 applic Digoxin (Lanoxin -) 0.125 mg GT DAILY [facility] Last Admin: 04/30/19 10:00 Dose: 0.125 mg Ergocalciferol (Drisdol Oral Solution -) 50,000 units GT Q7D [facility] Furosemide (Lasix -) 40 mg GT DAILY [facility] Last Admin: 04/30/19 10:00 Dose: 40 mg Piperacillin Sod/Tazobactam (Sod 3.375 gm/ Dextrose) 50 mls @ 100 mls/hr IVPB Q8H-IV [facility]; Protocol Last Admin: 04/30/19 09:59 Dose: 100 mls/hr Lactobacillus Acidophilus (Bacid -) 1 tab GT BID [facility] Last Admin: 04/30/19 10:01 Dose: 1 tab Levetiracetam (Keppra Oral Solution -) 500 mg GT BID [facility] Last Admin: 04/30/19 10:00 Dose: 500 mg Levothyroxine Sodium (Synthroid -) 150 mcg GT DAILY@0700 [facility] Last Admin: 04/30/19 06:07 Dose: 150 mcg Multi-Ingredient Ointment (Zinc Oxide) 1 applic TP PRN PRN PRN Reason: HYGEINE Mupirocin (Bactroban 2% Ointment -) 1 applic TP BID [facility] Potassium Chloride (Potassium Chloride Oral Liquid) 40 meq PO DAILY [facility] - Objective Vital Signs: Vital Signs Temperature 98.3 F 04/30/19 09:11 Pulse Rate 98 H 04/30/19 10:00 Respiratory Rate 12 04/30/19 12:04 Blood Pressure 112/73 04/30/19 09:11 O2 Sat by Pulse Oximetry (%) 100 04/30/19 08:22 Constitutional: Yes: No Distress, Calm Cardiovascular: Yes: S1, S2 Respiratory: Yes: Mechanically Ventilated, Other (trach) Gastrointestinal: Yes: Normal Bowel Sounds, Soft, Other (peg) Musculoskeletal: Yes: WNL Extremities: Yes: WNL Labs: CBC, BMP 04/29/19 08:35 04/29/19 08:35 INR, PTT INR 1.23 (0.83-1.09) H 04/26/19 01:00 Assessment/Plan Problem List - Problems (1) Hypotension Code(s): I95.9 - HYPOTENSION, UNSPECIFIED Qualifiers: Hypotension type: unspecified hypotension type Qualified Code(s): I95.9 - Hypotension, unspecified (2) UTI (urinary tract infection) Code(s): N39.0 - URINARY TRACT INFECTION, SITE NOT SPECIFIED Qualifiers: Urinary tract infection type: site unspecified Hematuria presence: without hematuria Qualified Code(s): N39.0 - Urinary tract infection, site not specified (3) Anoxic brain injury Code(s): G93.1 - ANOXIC BRAIN DAMAGE, NOT ELSEWHERE CLASSIFIED (4) Atrial fibrillation Code(s): I48.91 - UNSPECIFIED ATRIAL FIBRILLATION Qualifiers: Atrial fibrillation type: persistent (5) Chronic respiratory failure Code(s): J96.10 - CHRONIC RESPIRATORY FAILURE, UNSP W HYPOXIA OR HYPERCAPNIA Qualifiers: Respiratory failure complication: unspecified whether with hypoxia or hypercapnia Qualified Code(s): J96.10 - Chronic respiratory failure, unspecified whether with hypoxia or hypercapnia (6) Dislodged gastrostomy tube Code(s): Z43.1 - ENCOUNTER FOR ATTENTION TO GASTROSTOMY (7) Quadriplegia, functional Code(s): R53.2 - FUNCTIONAL QUADRIPLEGIA (8) Rheumatic heart disease Code(s): I09.9 - RHEUMATIC HEART DISEASE, UNSPECIFIED (9) Suprapubic catheter dysfunction Code(s): T83.010A - BREAKDOWN (MECHANICAL) OF CYSTOSTOMY CATHETER, INIT ENCNTR (10) Tracheostomy tube present Code(s): Z93.0 - TRACHEOSTOMY STATUS plan continue abx await for cx report rest as per the team asp precautions
[2019-04-30] MEDS: COLLAGENASE CLOSTRIDIUM HIST. 30 GRAMS TUBE TP SCH (12:27)
[2019-04-30] MEDS: POTASSIUM CHLORIDE ORAL LIQUID 20 MEQ/15 ML PO SCH (12:59)
[2019-05-01] MEDS ORDERED: DEXTROSE 5%-WATER - 50 ML IVPB ONE ×3 (01:50→18:33)
[2019-05-01] MEDS ORDERED: PIPERACILLIN/TAZOBACTAM 3.375 GM VIAL IVPB ONE ×3 (01:50→18:33)
[2019-05-01] MEDS: PIPERACILLIN/TAZOB 3.375 GM 3.375 GM in DEXTROSE 5%-WATER - 50 ML IVPB SCH ×3 (02:09→18:42)
[2019-05-01] MEDS: LEVOTHYROXINE NA 150 MCG TABLET GT SCH (06:34)
[2019-05-01] MEDS: ALBUTEROL SO4 2.5/IPRATROPIUM 0.5 INH SOL 3 ML VIAL.NEB. NEB SCH ×3 (08:00→20:30)
[2019-05-01 09:03] LABS: HEMATOCRIT 26.5 % (35.4-49); HEMOGLOBIN 8.4 GM/dL (11.7-16.9); MCH 28.4 pg (25.7-33.7); MCHC 31.7 g/dl (32.0-35.9); MEAN CELL VOLUME 89.5 fl (80-96); MEAN PLT VOLUME 9.8 fl (7.5-11.1); PLATELET COUNT 127 K/MM3 (134-434); RBC 2.96 M/mm3 (4.00-5.60); WHITE BLOOD COUNT 4.4 K/mm3 (4.0-10.0)
[2019-05-01 09:49] LABS: BLOOD UREA NITROGEN 17.6 mg/dL (7-18); CALCIUM 8.7 mg/dL (8.5-10.1); CREATININE 0.6 mg/dL (0.55-1.3); POTASSIUM 3.7 mmol/L (3.5-5.1)
[2019-05-01] MEDS ORDERED: ERGOCALCIFEROL 8,000 UNITS/ML DROPSBTL GT SCH (10:00)
--- NOTE | 2019-05-01 11:11 | PN ---
Progress Note, Physician History of Present Illness: stable no new issues - Current Medication List Current Medications: Active Medications Acetaminophen (Tylenol -) 500 mg GT Q6H PRN PRN Reason: PAIN Albuterol/Ipratropium (Duoneb -) 1 amp NEB RTID [facility] Last Admin: 05/01/19 08:00 Dose: 1 amp Amiodarone HCl (Cordarone -) 200 mg GT DAILY [facility] Last Admin: 04/30/19 10:01 Dose: 200 mg Apixaban (Eliquis -) 5 mg PEG BID [facility] Last Admin: 04/30/19 22:52 Dose: 5 mg Artificial Tears (Artificial Tears) 1 drop OU QID [facility] Last Admin: 04/30/19 22:52 Dose: 1 drop Aspirin (Asa -) 81 mg GT DAILY [facility] Last Admin: 04/30/19 10:00 Dose: 81 mg Collagenase (Santyl -) 1 applic TP DAILY [facility]; Protocol Last Admin: 04/30/19 12:27 Dose: 1 applic Digoxin (Lanoxin -) 0.125 mg GT DAILY [facility] Last Admin: 04/30/19 10:00 Dose: 0.125 mg Ergocalciferol (Drisdol Oral Solution -) 50,000 units GT Q7D [facility] Furosemide (Lasix -) 40 mg GT DAILY [facility] Last Admin: 04/30/19 10:00 Dose: 40 mg Piperacillin Sod/Tazobactam (Sod 3.375 gm/ Dextrose) 50 mls @ 100 mls/hr IVPB Q8H-IV [facility]; Protocol Last Admin: 05/01/19 02:09 Dose: 100 mls/hr Lactobacillus Acidophilus (Bacid -) 1 tab GT BID [facility] Last Admin: 04/30/19 22:52 Dose: 1 tab Levetiracetam (Keppra Oral Solution -) 500 mg GT BID [facility] Last Admin: 04/30/19 22:52 Dose: 500 mg Levothyroxine Sodium (Synthroid -) 150 mcg GT DAILY@0700 [facility] Last Admin: 05/01/19 06:34 Dose: 150 mcg Multi-Ingredient Ointment (Zinc Oxide) 1 applic TP PRN PRN PRN Reason: HYGEINE Mupirocin (Bactroban 2% Ointment -) 1 applic TP BID [facility] Last Admin: 04/30/19 22:52 Dose: 1 applic Potassium Chloride (Potassium Chloride Oral Liquid) 40 meq PO DAILY [facility] Last Admin: 04/30/19 12:59 Dose: 40 meq - Objective Vital Signs: Vital Signs Temperature 97.4 F L 05/01/19 08:44 Pulse Rate 90 05/01/19 08:44 Respiratory Rate 16 05/01/19 08:44 Blood Pressure 117/73 05/01/19 08:44 O2 Sat by Pulse Oximetry (%) 99 05/01/19 07:59 Constitutional: Yes: No Distress, Calm Cardiovascular: Yes: S1, S2 Respiratory: Yes: Regular, Mechanically Ventilated Gastrointestinal: Yes: Normal Bowel Sounds, Soft, Other (peg tube in place) Musculoskeletal: Yes: WNL Extremities: Yes: WNL Neurological: Yes: Other Labs: CBC, BMP 05/01/19 08:25 05/01/19 08:25 INR, PTT INR 1.23 (0.83-1.09) H 04/26/19 01:00 Assessment/Plan Problem List - Problems (1) Hypotension Code(s): I95.9 - HYPOTENSION, UNSPECIFIED Qualifiers: Hypotension type: unspecified hypotension type Qualified Code(s): I95.9 - Hypotension, unspecified (2) UTI (urinary tract infection) Code(s): N39.0 - URINARY TRACT INFECTION, SITE NOT SPECIFIED Qualifiers: Urinary tract infection type: site unspecified Hematuria presence: without hematuria Qualified Code(s): N39.0 - Urinary tract infection, site not specified (3) Anoxic brain injury Code(s): G93.1 - ANOXIC BRAIN DAMAGE, NOT ELSEWHERE CLASSIFIED (4) Atrial fibrillation Code(s): I48.91 - UNSPECIFIED ATRIAL FIBRILLATION Qualifiers: Atrial fibrillation type: persistent (5) Chronic respiratory failure Code(s): J96.10 - CHRONIC RESPIRATORY FAILURE, UNSP W HYPOXIA OR HYPERCAPNIA Qualifiers: Respiratory failure complication: unspecified whether with hypoxia or hypercapnia Qualified Code(s): J96.10 - Chronic respiratory failure, unspecified whether with hypoxia or hypercapnia (6) Dislodged gastrostomy tube Code(s): Z43.1 - ENCOUNTER FOR ATTENTION TO GASTROSTOMY (7) Quadriplegia, functional Code(s): R53.2 - FUNCTIONAL QUADRIPLEGIA (8) Rheumatic heart disease Code(s): I09.9 - RHEUMATIC HEART DISEASE, UNSPECIFIED (9) Suprapubic catheter dysfunction Code(s): T83.010A - BREAKDOWN (MECHANICAL) OF CYSTOSTOMY CATHETER, INIT ENCNTR (10) Tracheostomy tube present Code(s): Z93.0 - TRACHEOSTOMY STATUS plan continue abx cx reports noted rest as per the team asp precautions
[2019-05-01] MEDS ORDERED: PT OWN MED DRAWER 7, Y5N ONE (12:20)
[2019-05-01] MEDS: DIGOXIN 0.125 MG TABLET (FP) GT SCH (12:31)
[2019-05-01] MEDS: LACTOBACILLUS ACIDOPHILUS 1 TABLET GT SCH ×2 (12:31→23:11)
[2019-05-01] MEDS: MUPIROCIN 2% TOPICAL OINTMENT 22 GM TUBE TP SCH ×2 (12:32→23:10)
[2019-05-01] MEDS: FUROSEMIDE 40 MG TABLET (FP) GT SCH (12:32)
[2019-05-01] MEDS: ASPIRIN 81 MG CHEWABLE TABLETS GT SCH (12:32)
[2019-05-01] MEDS: APIXABAN 5 MG TABLET PEG SCH ×2 (12:32→23:11)
[2019-05-01] MEDS: levETIRAcetam 500 MG/5 ML ORAL SOLUTION (UNIT-DOSE CUPS) GT SCH ×2 (12:33→23:11)
[2019-05-01] MEDS: POTASSIUM CHLORIDE ORAL LIQUID 20 MEQ/15 ML PO SCH (12:33)
[2019-05-01] MEDS: AMIODARONE HCL 200 MG TABLET GT SCH (12:33)
[2019-05-01] MEDS: ARTIFICIAL TEARS (POLYVINYL ALCOHOL) OPTH DROPS OU SCH ×4 (12:34→23:10)
[2019-05-01] MEDS: COLLAGENASE CLOSTRIDIUM HIST. 30 GRAMS TUBE TP SCH (13:08)
--- NOTE | 2019-05-01 15:51 | PN ---
Progress Note (short form) - Note Progress Note: chart is reviewed. comfortable non verbal Vital Signs - 24 hr 04/30/19 04/30/19 04/30/19 16:08 18:00 20:15 Temperature 98.2 F Pulse Rate 100 H 75 Respiratory 14 20 12 Rate Blood Pressure 117/72 O2 Sat by Pulse 100 Oximetry (%) 04/30/19 04/30/19 05/01/19 21:00 22:00 00:20 Temperature Pulse Rate 95 H Respiratory 20 12 12 Rate Blood Pressure 124/64 O2 Sat by Pulse 100 Oximetry (%) 05/01/19 05/01/19 05/01/19 02:00 04:15 06:00 Temperature 99.3 F 98.3 F Pulse Rate 97 H 96 H Respiratory 20 14 18 Rate Blood Pressure 116/70 122/73 O2 Sat by Pulse Oximetry (%) 05/01/19 05/01/19 05/01/19 07:59 08:44 11:26 Temperature 97.4 F L Pulse Rate 95 H 90 Respiratory 12 16 14 Rate Blood Pressure 117/73 O2 Sat by Pulse 99 Oximetry (%) 05/01/19 12:31 Temperature Pulse Rate 77 Respiratory Rate Blood Pressure O2 Sat by Pulse Oximetry (%) Current Medications Generic Name Dose Route Start Last Admin Trade Name Freq PRN Reason Stop Dose Admin Acetaminophen 500 mg 04/26/19 03:41 Tylenol - GT Q6H PRN PAIN Albuterol/Ipratropium 1 amp 04/26/19 08:00 05/01/19 14:13 Duoneb - NEB 1 amp RTID [facility] Administration Amino Acids 30 ml 05/01/19 13:30 Prosource No Carb Liquid Pkt GT DAILY [facility] Amiodarone HCl 200 mg 04/26/19 10:00 05/01/19 12:33 Cordarone - GT 200 mg DAILY [facility] Administration Apixaban 5 mg 04/26/19 10:00 05/01/19 12:32 Eliquis - PEG 5 mg BID [facility] Administration Artificial Tears 1 drop 04/26/19 10:00 05/01/19 12:34 Artificial Tears OU 1 drop QID [facility] Administration Aspirin 81 mg 04/26/19 10:00 05/01/19 12:32 Asa - GT 81 mg DAILY [facility] Administration Collagenase 1 applic 04/26/19 10:00 05/01/19 13:08 Santyl - TP Not Given DAILY [facility] Protocol Digoxin 0.125 mg 04/28/19 10:00 05/01/19 12:31 Lanoxin - GT 0.125 mg DAILY [facility] Administration Ergocalciferol 50,000 units 05/01/19 10:00 05/01/19 12:33 Drisdol Oral Solution - GT 50,000 units Q7D [facility] Administration Furosemide 40 mg 04/26/19 10:00 05/01/19 12:32 Lasix - GT 40 mg DAILY [facility] Administration Piperacillin Sod/Tazobactam 50 mls @ 100 mls/hr 04/26/19 18:00 05/01/19 12:35 Sod 3.375 gm/ Dextrose IVPB 100 mls/hr Q8H-IV [facility] Administration Protocol Lactobacillus Acidophilus 1 tab 04/26/19 10:00 05/01/19 12:31 Bacid - GT 1 tab BID [facility] Administration Levetiracetam 500 mg 04/26/19 10:00 05/01/19 12:33 Keppra Oral Solution - GT 500 mg BID [facility] Administration Levothyroxine Sodium 150 mcg 04/26/19 07:00 05/01/19 06:34 Synthroid - GT 150 mcg DAILY@0700 [facility] Administration Multi-Ingredient Ointment 1 applic 04/26/19 04:15 Zinc Oxide TP PRN PRN HYGEINE Mupirocin 1 applic 04/30/19 12:02 05/01/19 12:32 Bactroban 2% Ointment - TP 1 applic BID [facility] Administration Potassium Chloride 40 meq 04/30/19 12:15 05/01/19 12:33 Potassium Chloride Oral Liquid PO 40 meq DAILY [facility] Administration Laboratory Results - last 24 hr 05/01/19 05/01/19 08:25 08:25 WBC 4.4 RBC 2.96 L Hgb 8.4 L Hct 26.5 L MCV 89.5 MCH 28.4 MCHC 31.7 L RDW 17.0 H Plt Count 127 L MPV 9.8 Sodium 141 Potassium 3.7 Chloride 103 Carbon Dioxide 32 Anion Gap 5 L BUN 17.6 Creatinine 0.6 Est GFR (CKD-EPI)AfAm 122.29 Est GFR (CKD-EPI)NonAf 105.51 Random Glucose 129 H Calcium 8.7 Constitutional: Yes: No Distress Eyes: Yes: Conjunctiva Clear, Other (fixed) Neck: Yes: Other (trach). No: Supple Cardiovascular: Yes: Pulse Irregular Respiratory: Yes: Diminished Gastrointestinal: Yes: Soft, Other (G tube)NT Genitourinary: Yes: Boucher Present- suprapubic Edema: No Problem List - Problems (1) Hypotension Code(s): I95.9 - HYPOTENSION, UNSPECIFIED Qualifiers: Hypotension type: unspecified hypotension type Qualified Code(s): I95.9 - Hypotension, unspecified (2) UTI (urinary tract infection) Code(s): N39.0 - URINARY TRACT INFECTION, SITE NOT SPECIFIED Qualifiers: Urinary tract infection type: site unspecified Hematuria presence: without hematuria Qualified Code(s): N39.0 - Urinary tract infection, site not specified (3) Anoxic brain injury Code(s): G93.1 - ANOXIC BRAIN DAMAGE, NOT ELSEWHERE CLASSIFIED (4) Atrial fibrillation Code(s): I48.91 - UNSPECIFIED ATRIAL FIBRILLATION Qualifiers: Atrial fibrillation type: persistent (5) Chronic respiratory failure Code(s): J96.10 - CHRONIC RESPIRATORY FAILURE, UNSP W HYPOXIA OR HYPERCAPNIA Qualifiers: Respiratory failure complication: unspecified whether with hypoxia or hypercapnia Qualified Code(s): J96.10 - Chronic respiratory failure, unspecified whether with hypoxia or hypercapnia (6) Dislodged gastrostomy tube Code(s): Z43.1 - ENCOUNTER FOR ATTENTION TO GASTROSTOMY (7) Quadriplegia, functional Code(s): R53.2 - FUNCTIONAL QUADRIPLEGIA (8) Rheumatic heart disease Code(s): I09.9 - RHEUMATIC HEART DISEASE, UNSPECIFIED (9) Suprapubic catheter dysfunction Code(s): T83.010A - BREAKDOWN (MECHANICAL) OF CYSTOSTOMY CATHETER, INIT ENCNTR (10) Tracheostomy tube present Code(s): Z93.0 - TRACHEOSTOMY STATUS Assessment/Plan In summary . ASSESSMENT/PLAN: Mr. Wood is a 64 year old male with a past medical history significant for anoxic brain injury secondary to [facility], in a permanent vegetative state with a tracheostomy to ventilator, G-tube and quadraplegic, nonverbal with eyes open, hypertension, hepatitis C and atrial fibrillation (on Eliquis) who was sent to ER for G-tube replacement as it was displaced .G-tube was replaced in the ER and confirmed placement. He was noted to be hypotensive with blood pressure being 70/30's on the way to the ED. Patient had persistent hypotension which improved following IVF. Upon workup in ER CXR showed a right middle lobe infiltrate. UA with 3+ leukoesterase and bacteria. He was given a dose of IV vancomycin and zosyn. #1 Hypotension in setting of UTI Currently afebrile, UA w/ 3+ leukoesterase, neg nitrite, bacteria >4000, normal WBC and lactic acid --blood cultures negative urine cultures repeated --Continue with IV Zosyn #2 Right Middle Lobe Infiltrate ? 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
[2019-05-01] MEDS: AMINO ACIDS/PROTEIN HYDROLYS 30 ML LIQUID.PKT GT SCH (18:42)
[2019-05-02] MEDS ORDERED: PIPERACILLIN/TAZOBACTAM 3.375 GM VIAL IVPB ONE ×3 (01:28→17:21)
[2019-05-02] MEDS ORDERED: DEXTROSE 5%-WATER - 50 ML IVPB ONE ×3 (01:28→17:21)
[2019-05-02] MEDS: PIPERACILLIN/TAZOB 3.375 GM 3.375 GM in DEXTROSE 5%-WATER - 50 ML IVPB SCH ×3 (02:05→17:32)
[2019-05-02] MEDS: LEVOTHYROXINE NA 150 MCG TABLET GT SCH (06:20)
[2019-05-02] MEDS: ALBUTEROL SO4 2.5/IPRATROPIUM 0.5 INH SOL 3 ML VIAL.NEB. NEB SCH ×3 (07:30→20:47)
[2019-05-02] MEDS: AMINO ACIDS/PROTEIN HYDROLYS 30 ML LIQUID.PKT GT SCH (10:30)
[2019-05-02] MEDS: DIGOXIN 0.125 MG TABLET (FP) GT SCH (10:39)
[2019-05-02] MEDS: APIXABAN 5 MG TABLET PEG SCH ×2 (10:39→21:58)
[2019-05-02] MEDS: FUROSEMIDE 40 MG TABLET (FP) GT SCH (10:39)
[2019-05-02] MEDS: levETIRAcetam 500 MG/5 ML ORAL SOLUTION (UNIT-DOSE CUPS) GT SCH ×2 (10:40→21:58)
[2019-05-02] MEDS: LACTOBACILLUS ACIDOPHILUS 1 TABLET GT SCH ×2 (10:40→21:58)
[2019-05-02] MEDS: AMIODARONE HCL 200 MG TABLET GT SCH (10:41)
[2019-05-02] MEDS: ASPIRIN 81 MG CHEWABLE TABLETS GT SCH (10:41)
--- NOTE | 2019-05-02 10:43 | PN ---
Progress Note, Physician History of Present Illness: no new issues - Current Medication List Current Medications: Active Medications Acetaminophen (Tylenol -) 500 mg GT Q6H PRN PRN Reason: PAIN Albuterol/Ipratropium (Duoneb -) 1 amp NEB RTID [facility] Last Admin: 05/02/19 07:30 Dose: 1 amp Amino Acids (Prosource No Carb Liquid Pkt) 30 ml GT DAILY [facility] Last Admin: 05/01/19 18:42 Dose: 30 ml Amiodarone HCl (Cordarone -) 200 mg GT DAILY [facility] Last Admin: 05/01/19 12:33 Dose: 200 mg Apixaban (Eliquis -) 5 mg PEG BID [facility] Last Admin: 05/01/19 23:11 Dose: 5 mg Artificial Tears (Artificial Tears) 1 drop OU QID [facility] Last Admin: 05/01/19 23:10 Dose: 1 drop Aspirin (Asa -) 81 mg GT DAILY [facility] Last Admin: 05/01/19 12:32 Dose: 81 mg Collagenase (Santyl -) 1 applic TP DAILY [facility]; Protocol Last Admin: 05/01/19 13:08 Dose: Not Given Digoxin (Lanoxin -) 0.125 mg GT DAILY [facility] Last Admin: 05/01/19 12:31 Dose: 0.125 mg Ergocalciferol (Drisdol Oral Solution -) 50,000 units GT Q7D [facility] Last Admin: 05/01/19 12:33 Dose: 50,000 units Furosemide (Lasix -) 40 mg GT DAILY [facility] Last Admin: 05/01/19 12:32 Dose: 40 mg Piperacillin Sod/Tazobactam (Sod 3.375 gm/ Dextrose) 50 mls @ 100 mls/hr IVPB Q8H-IV [facility]; Protocol Last Admin: 05/02/19 02:05 Dose: 100 mls/hr Lactobacillus Acidophilus (Bacid -) 1 tab GT BID [facility] Last Admin: 05/01/19 23:11 Dose: 1 tab Levetiracetam (Keppra Oral Solution -) 500 mg GT BID [facility] Last Admin: 05/01/19 23:11 Dose: 500 mg Levothyroxine Sodium (Synthroid -) 150 mcg GT DAILY@0700 [facility] Last Admin: 05/02/19 06:20 Dose: 150 mcg Multi-Ingredient Ointment (Zinc Oxide) 1 applic TP PRN PRN PRN Reason: HYGEINE Mupirocin (Bactroban 2% Ointment -) 1 applic TP BID [facility] Last Admin: 05/01/19 23:10 Dose: 1 applic Potassium Chloride (Potassium Chloride Oral Liquid) 40 meq PO DAILY [facility] Last Admin: 05/01/19 12:33 Dose: 40 meq - Objective Vital Signs: Vital Signs Temperature 98.7 F 05/02/19 09:00 Pulse Rate 102 H 05/02/19 09:00 Respiratory Rate 14 05/02/19 09:00 Blood Pressure 112/72 05/02/19 09:00 O2 Sat by Pulse Oximetry (%) 99 05/02/19 07:30 Constitutional: Yes: No Distress, Calm Cardiovascular: Yes: S1, S2 Respiratory: Yes: Mechanically Ventilated Gastrointestinal: Yes: Other Musculoskeletal: Yes: WNL Extremities: Yes: Other Neurological: Yes: Other Labs: CBC, BMP 05/01/19 08:25 05/01/19 08:25 INR, PTT INR 1.23 (0.83-1.09) H 04/26/19 01:00 Assessment/Plan Problem List - Problems (1) Hypotension Code(s): I95.9 - HYPOTENSION, UNSPECIFIED Qualifiers: Hypotension type: unspecified hypotension type Qualified Code(s): I95.9 - Hypotension, unspecified (2) UTI (urinary tract infection) Code(s): N39.0 - URINARY TRACT INFECTION, SITE NOT SPECIFIED Qualifiers: Urinary tract infection type: site unspecified Hematuria presence: without hematuria Qualified Code(s): N39.0 - Urinary tract infection, site not specified (3) Anoxic brain injury Code(s): G93.1 - ANOXIC BRAIN DAMAGE, NOT ELSEWHERE CLASSIFIED (4) Atrial fibrillation Code(s): I48.91 - UNSPECIFIED ATRIAL FIBRILLATION Qualifiers: Atrial fibrillation type: persistent (5) Chronic respiratory failure Code(s): J96.10 - CHRONIC RESPIRATORY FAILURE, UNSP W HYPOXIA OR HYPERCAPNIA Qualifiers: Respiratory failure complication: unspecified whether with hypoxia or hypercapnia Qualified Code(s): J96.10 - Chronic respiratory failure, unspecified whether with hypoxia or hypercapnia (6) Dislodged gastrostomy tube Code(s): Z43.1 - ENCOUNTER FOR ATTENTION TO GASTROSTOMY (7) Quadriplegia, functional Code(s): R53.2 - FUNCTIONAL QUADRIPLEGIA (8) Rheumatic heart disease Code(s): I09.9 - RHEUMATIC HEART DISEASE, UNSPECIFIED (9) Suprapubic catheter dysfunction Code(s): T83.010A - BREAKDOWN (MECHANICAL) OF CYSTOSTOMY CATHETER, INIT ENCNTR (10) Tracheostomy tube present Code(s): Z93.0 - TRACHEOSTOMY STATUS plan continue abx cx reports noted rest as per the team asp precautions will d/w the team
[2019-05-02] MEDS: ARTIFICIAL TEARS (POLYVINYL ALCOHOL) OPTH DROPS OU SCH ×4 (10:51→21:58)
[2019-05-02] MEDS: POTASSIUM CHLORIDE ORAL LIQUID 20 MEQ/15 ML PO SCH (11:34)
[2019-05-02] MEDS: COLLAGENASE CLOSTRIDIUM HIST. 30 GRAMS TUBE TP SCH (11:35)
[2019-05-02] MEDS: MUPIROCIN 2% TOPICAL OINTMENT 22 GM TUBE TP SCH ×2 (11:35→21:58)
--- NOTE | 2019-05-02 11:35 | PN ---
Progress Note (short form) - Note Progress Note: chart is reviewed. comfortable non verbal Vital Signs - 24 hr 05/01/19 05/01/19 05/01/19 12:31 15:00 16:09 Temperature 98.8 F Pulse Rate 77 96 H Respiratory 16 16 Rate Blood Pressure 100/53 L O2 Sat by Pulse Oximetry (%) 05/01/19 05/01/19 05/01/19 19:00 20:00 21:00 Temperature 98.3 F Pulse Rate 98 H Respiratory 17 17 18 Rate Blood Pressure 102/61 O2 Sat by Pulse Oximetry (%) 05/01/19 05/02/19 05/02/19 22:00 00:50 01:55 Temperature 97.9 F Pulse Rate 95 H 104 H Respiratory 15 12 18 Rate Blood Pressure 99/60 127/80 O2 Sat by Pulse Oximetry (%) 05/02/19 05/02/19 05/02/19 05:00 07:30 09:00 Temperature 98.1 F 98.7 F Pulse Rate 107 H 80 102 H Respiratory 20 16 14 Rate Blood Pressure 119/72 112/72 O2 Sat by Pulse 99 Oximetry (%) 05/02/19 05/02/19 10:39 11:56 Temperature Pulse Rate 102 H Respiratory 12 Rate Blood Pressure O2 Sat by Pulse Oximetry (%) Current Medications Generic Name Dose Route Start Last Admin Trade Name Freq PRN Reason Stop Dose Admin Acetaminophen 500 mg 04/26/19 03:41 Tylenol - GT Q6H PRN PAIN Albuterol/Ipratropium 1 amp 04/26/19 08:00 05/02/19 07:30 Duoneb - NEB 1 amp RTID JESUS Administration Amino Acids 30 ml 05/01/19 13:30 05/02/19 10:30 Prosource No Carb Liquid Pkt GT 30 ml DAILY JESUS Administration Amiodarone HCl 200 mg 04/26/19 10:00 05/02/19 10:41 Cordarone - GT 200 mg DAILY JESUS Administration Apixaban 5 mg 04/26/19 10:00 05/02/19 10:39 Eliquis - PEG 5 mg BID JESUS Administration Artificial Tears 1 drop 04/26/19 10:00 05/02/19 10:51 Artificial Tears OU 1 drop QID JESUS Administration Aspirin 81 mg 04/26/19 10:00 05/02/19 10:41 Asa - GT 81 mg DAILY JESUS Administration Collagenase 1 applic 04/26/19 10:00 05/02/19 11:35 Santyl - TP 1 applic DAILY JESUS Administration Protocol Digoxin 0.125 mg 04/28/19 10:00 05/02/19 10:39 Lanoxin - GT 0.125 mg DAILY JESUS Administration Ergocalciferol 50,000 units 05/01/19 10:00 05/01/19 12:33 Drisdol Oral Solution - GT 50,000 units Q7D JESUS Administration Furosemide 40 mg 04/26/19 10:00 05/02/19 10:39 Lasix - GT 40 mg DAILY JESUS Administration Piperacillin Sod/Tazobactam 50 mls @ 100 mls/hr 04/26/19 18:00 05/02/19 10:40 Sod 3.375 gm/ Dextrose IVPB 100 mls/hr Q8H-IV JESUS Administration Protocol Lactobacillus Acidophilus 1 tab 04/26/19 10:00 05/02/19 10:40 Bacid - GT 1 tab BID JESUS Administration Levetiracetam 500 mg 04/26/19 10:00 05/02/19 10:40 Keppra Oral Solution - GT 500 mg BID JESUS Administration Levothyroxine Sodium 150 mcg 04/26/19 07:00 05/02/19 06:20 Synthroid - GT 150 mcg DAILY@0700 JESUS Administration Multi-Ingredient Ointment 1 applic 04/26/19 04:15 Zinc Oxide TP PRN PRN HYGEINE Mupirocin 1 applic 04/30/19 12:02 05/02/19 11:35 Bactroban 2% Ointment - TP 1 applic BID JESUS Administration Potassium Chloride 40 meq 04/30/19 12:15 05/02/19 11:34 Potassium Chloride Oral Liquid PO 40 meq DAILY JESUS Administration Constitutional: Yes: No Distress Eyes: Yes: Conjunctiva Clear, Other (fixed) Neck: Yes: Other (trach). No: Supple Cardiovascular: Yes: Pulse Irregular Respiratory: Yes: Diminished Gastrointestinal: Yes: Soft, Other (G tube)NT Genitourinary: Yes: Boucher Present- suprapubic Edema: No Problem List - Problems (1) Hypotension Code(s): I95.9 - HYPOTENSION, UNSPECIFIED Qualifiers: Hypotension type: unspecified hypotension type Qualified Code(s): I95.9 - Hypotension, unspecified (2) UTI (urinary tract infection) Code(s): N39.0 - URINARY TRACT INFECTION, SITE NOT SPECIFIED Qualifiers: Urinary tract infection type: site unspecified Hematuria presence: without hematuria Qualified Code(s): N39.0 - Urinary tract infection, site not specified (3) Anoxic brain injury Code(s): G93.1 - ANOXIC BRAIN DAMAGE, NOT ELSEWHERE CLASSIFIED (4) Atrial fibrillation Code(s): I48.91 - UNSPECIFIED ATRIAL FIBRILLATION Qualifiers: Atrial fibrillation type: persistent (5) Chronic respiratory failure Code(s): J96.10 - CHRONIC RESPIRATORY FAILURE, UNSP W HYPOXIA OR HYPERCAPNIA Qualifiers: Respiratory failure complication: unspecified whether with hypoxia or hypercapnia Qualified Code(s): J96.10 - Chronic respiratory failure, unspecified whether with hypoxia or hypercapnia (6) Dislodged gastrostomy tube Code(s): Z43.1 - ENCOUNTER FOR ATTENTION TO GASTROSTOMY (7) Quadriplegia, functional Code(s): R53.2 - FUNCTIONAL QUADRIPLEGIA (8) Rheumatic heart disease Code(s): I09.9 - RHEUMATIC HEART DISEASE, UNSPECIFIED (9) Suprapubic catheter dysfunction Code(s): T83.010A - BREAKDOWN (MECHANICAL) OF CYSTOSTOMY CATHETER, INIT ENCNTR (10) Tracheostomy tube present Code(s): Z93.0 - TRACHEOSTOMY STATUS Microbiology 04/27/19 17:00 Urine Culture - Final Urine - Urine Suprapubic Pseudomonas Aeruginosa Escherichia Coli Assessment/Plan In summary . ASSESSMENT/PLAN: Mr. Wood is a 64 year old male with a past medical history significant for anoxic brain injury secondary to [place], in a permanent vegetative state with a tracheostomy to ventilator, G-tube and quadraplegic, nonverbal with eyes open, hypertension, hepatitis C and atrial fibrillation (on Eliquis) who was sent to ER for G-tube replacement as it was displaced .G-tube was replaced in the ER and confirmed placement. He was noted to be hypotensive with blood pressure being 70/30's on the way to the ED. Patient had persistent hypotension which improved following IVF. Upon workup in ER CXR showed a right middle lobe infiltrate. UA with 3+ leukoesterase and bacteria. He was given a dose of IV vancomycin and zosyn. #1 Hypotension in setting of UTI Currently afebrile, UA w/ 3+ leukoesterase, neg nitrite, bacteria >4000, normal WBC and lactic acid --blood cultures negative urine cultures noted --Continue with IV Zosyn #2 Right Middle Lobe Infiltrate ? 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
[2019-05-03] MEDS ORDERED: DEXTROSE 5%-WATER - 50 ML IVPB ONE ×2 (00:31→12:01)
[2019-05-03] MEDS ORDERED: PIPERACILLIN/TAZOBACTAM 3.375 GM VIAL IVPB ONE ×2 (00:31→12:01)
[2019-05-03] MEDS: PIPERACILLIN/TAZOB 3.375 GM 3.375 GM in DEXTROSE 5%-WATER - 50 ML IVPB SCH ×2 (03:01→12:03)
[2019-05-03] MEDS: LEVOTHYROXINE NA 150 MCG TABLET GT SCH (06:30)
[2019-05-03] MEDS: ALBUTEROL SO4 2.5/IPRATROPIUM 0.5 INH SOL 3 ML VIAL.NEB. NEB SCH ×2 (07:30→14:32)
[2019-05-03 09:12] LABS: BLOOD UREA NITROGEN 19.4 mg/dL (7-18); CALCIUM 8.9 mg/dL (8.5-10.1); CREATININE 0.7 mg/dL (0.55-1.3); POTASSIUM 3.7 mmol/L (3.5-5.1)
--- NOTE | 2019-05-03 11:48 | PN ---
Progress Note, Physician History of Present Illness: no new issues - Current Medication List Current Medications: Active Medications Acetaminophen (Tylenol -) 500 mg GT Q6H PRN PRN Reason: PAIN Albuterol/Ipratropium (Duoneb -) 1 amp NEB RTID [facility] Last Admin: 05/03/19 07:30 Dose: 1 amp Amino Acids (Prosource No Carb Liquid Pkt) 30 ml GT DAILY [facility] Last Admin: 05/02/19 10:30 Dose: 30 ml Amiodarone HCl (Cordarone -) 200 mg GT DAILY [facility] Last Admin: 05/02/19 10:41 Dose: 200 mg Apixaban (Eliquis -) 5 mg PEG BID [facility] Last Admin: 05/02/19 21:58 Dose: 5 mg Artificial Tears (Artificial Tears) 1 drop OU QID [facility] Last Admin: 05/02/19 21:58 Dose: 1 drop Aspirin (Asa -) 81 mg GT DAILY [facility] Last Admin: 05/02/19 10:41 Dose: 81 mg Collagenase (Santyl -) 1 applic TP DAILY [facility]; Protocol Last Admin: 05/02/19 11:35 Dose: 1 applic Digoxin (Lanoxin -) 0.125 mg GT DAILY [facility] Last Admin: 05/02/19 10:39 Dose: 0.125 mg Ergocalciferol (Drisdol Oral Solution -) 50,000 units GT Q7D [facility] Last Admin: 05/01/19 12:33 Dose: 50,000 units Furosemide (Lasix -) 40 mg GT DAILY [facility] Last Admin: 05/02/19 10:39 Dose: 40 mg Piperacillin Sod/Tazobactam (Sod 3.375 gm/ Dextrose) 50 mls @ 100 mls/hr IVPB Q8H-IV [facility]; Protocol Last Admin: 05/03/19 03:01 Dose: 100 mls/hr Lactobacillus Acidophilus (Bacid -) 1 tab GT BID [facility] Last Admin: 05/02/19 21:58 Dose: 1 tab Levetiracetam (Keppra Oral Solution -) 500 mg GT BID [facility] Last Admin: 05/02/19 21:58 Dose: 500 mg Levothyroxine Sodium (Synthroid -) 150 mcg GT DAILY@0700 [facility] Last Admin: 05/03/19 06:30 Dose: 150 mcg Multi-Ingredient Ointment (Zinc Oxide) 1 applic TP PRN PRN PRN Reason: HYGEINE Mupirocin (Bactroban 2% Ointment -) 1 applic TP BID [facility] Last Admin: 05/02/19 21:58 Dose: 1 applic Potassium Chloride (Potassium Chloride Oral Liquid) 40 meq PO DAILY [facility] Last Admin: 05/02/19 11:34 Dose: 40 meq - Objective Vital Signs: Vital Signs Temperature 98.5 F 05/03/19 06:00 Pulse Rate 81 05/03/19 08:16 Respiratory Rate 12 05/03/19 11:42 Blood Pressure 137/65 05/03/19 06:00 O2 Sat by Pulse Oximetry (%) 99 05/03/19 08:16 Constitutional: Yes: No Distress, Calm Cardiovascular: Yes: S1, S2 Gastrointestinal: Yes: Normal Bowel Sounds, Soft Musculoskeletal: Yes: WNL Extremities: Yes: WNL Neurological: Yes: Other Labs: CBC, BMP 05/01/19 08:25 05/03/19 07:33 INR, PTT INR 1.23 (0.83-1.09) H 04/26/19 01:00 Assessment/Plan Problem List - Problems (1) Hypotension Code(s): I95.9 - HYPOTENSION, UNSPECIFIED Qualifiers: Hypotension type: unspecified hypotension type Qualified Code(s): I95.9 - Hypotension, unspecified (2) UTI (urinary tract infection) Code(s): N39.0 - URINARY TRACT INFECTION, SITE NOT SPECIFIED Qualifiers: Urinary tract infection type: site unspecified Hematuria presence: without hematuria Qualified Code(s): N39.0 - Urinary tract infection, site not specified (3) Anoxic brain injury Code(s): G93.1 - ANOXIC BRAIN DAMAGE, NOT ELSEWHERE CLASSIFIED (4) Atrial fibrillation Code(s): I48.91 - UNSPECIFIED ATRIAL FIBRILLATION Qualifiers: Atrial fibrillation type: persistent (5) Chronic respiratory failure Code(s): J96.10 - CHRONIC RESPIRATORY FAILURE, UNSP W HYPOXIA OR HYPERCAPNIA Qualifiers: Respiratory failure complication: unspecified whether with hypoxia or hypercapnia Qualified Code(s): J96.10 - Chronic respiratory failure, unspecified whether with hypoxia or hypercapnia (6) Dislodged gastrostomy tube Code(s): Z43.1 - ENCOUNTER FOR ATTENTION TO GASTROSTOMY (7) Quadriplegia, functional Code(s): R53.2 - FUNCTIONAL QUADRIPLEGIA (8) Rheumatic heart disease Code(s): I09.9 - RHEUMATIC HEART DISEASE, UNSPECIFIED (9) Suprapubic catheter dysfunction Code(s): T83.010A - BREAKDOWN (MECHANICAL) OF CYSTOSTOMY CATHETER, INIT ENCNTR (10) Tracheostomy tube present Code(s): Z93.0 - TRACHEOSTOMY STATUS plan continue abx cx reports noted rest as per the team asp precautions will stop abx
[2019-05-03] MEDS: POTASSIUM CHLORIDE ORAL LIQUID 20 MEQ/15 ML PO SCH (12:03)
[2019-05-03] MEDS: AMINO ACIDS/PROTEIN HYDROLYS 30 ML LIQUID.PKT GT SCH (12:03)
[2019-05-03] MEDS: LACTOBACILLUS ACIDOPHILUS 1 TABLET GT SCH (12:03)
[2019-05-03] MEDS: DIGOXIN 0.125 MG TABLET (FP) GT SCH (12:03)
[2019-05-03] MEDS: AMIODARONE HCL 200 MG TABLET GT SCH (12:04)
[2019-05-03] MEDS: FUROSEMIDE 40 MG TABLET (FP) GT SCH (12:04)
[2019-05-03] MEDS: ASPIRIN 81 MG CHEWABLE TABLETS GT SCH (12:04)
[2019-05-03] MEDS: levETIRAcetam 500 MG/5 ML ORAL SOLUTION (UNIT-DOSE CUPS) GT SCH (12:05)
[2019-05-03] MEDS: ARTIFICIAL TEARS (POLYVINYL ALCOHOL) OPTH DROPS OU SCH ×2 (12:05→15:23)
[2019-05-03] MEDS: MUPIROCIN 2% TOPICAL OINTMENT 22 GM TUBE TP SCH (12:05)
[2019-05-03] MEDS: APIXABAN 5 MG TABLET PEG SCH (12:05)
[2019-05-03] MEDS: COLLAGENASE CLOSTRIDIUM HIST. 30 GRAMS TUBE TP SCH (12:06)
--- NOTE | 2019-05-03 12:26 | DS ---
Physical Examination Vital Signs: Vital Signs Temperature 98.5 F 05/03/19 06:00 Pulse Rate 77 05/03/19 12:03 Respiratory Rate 12 05/03/19 11:42 Blood Pressure 137/65 05/03/19 06:00 O2 Sat by Pulse Oximetry (%) 99 05/03/19 08:16 Findings/Remarks: awake/ comfortable afebrile chart reviewed Constitutional: Yes: No Distress Eyes: Yes: Conjunctiva Clear Neck: Yes: Other (s/p trach--) Cardiovascular: Yes: Pulse Irregular Respiratory: Yes: Diminished Gastrointestinal: Yes: Soft, Other (g tube) Edema: No Labs: CBC, BMP 05/01/19 08:25 05/03/19 07:33 Discharge Summary Problems reviewed: Yes Reason For Visit: URINARY TRACT INFECTION,SEPSIS,HYPOTENSION Current Active Problems Gastrostomy tube dysfunction (Acute) Hypotension (Acute) Sepsis (Acute) UTI (urinary tract infection) (Acute) Hospital Course: Mr. Wagoner is a 64 year old male here [facility] with a past medical history significant for anoxic brain injury secondary to [place] 05/2017 in a permanent vegetative state with a tracheostomy to ventilator, G-tube and quadraplegica, nonverbal with eyes open, hypertension, hepatitis C and atrial fibrillation (on Eliquis) who was sent to ER for G-tube replacement as it was displaced . He was noted to be hypotensive in the 70/30[address] to the ED. G-Tube was replaced in the ER and confirmed placement. Patient had persistent hypotension which improved following IVF. Upon workup CXR showed a right middle lobe infiltrate and UA with 3+ leukoesterase and bacteria. Admitted to floor given abx - broad spectrum-- Zosyn/ i/v Fluids. cxr--RML INFILTRATE U/C- E COLI / PSUEDOMONAS ID ALSO FOLLOWED Now stable to go back to [facility]-- off abx Meds reconcilled d/w Rn as aleksander as Dr. Lugo also. Condition stable but gaurded Condition: Guarded - Instructions Disposition: RESIDENTIAL FACILITY - Home Medications Comprehensive Discharge Medication List: Ambulatory Orders Acetaminophen [Tylenol .Extra-Strength -] 500 mg GT Q6H PRN 07/31/17 Hypromellose 0.5% Opth Soln [Artificial Tears] 1 drop OU QID 07/31/17 Metoprolol Tartrate [Lopressor -] 50 mg GT BID #60 tablet 08/10/17 Amiodarone HCl [Cordarone -] 200 mg GT DAILY 10/24/17 Apixaban [Eliquis -] 5 mg GT BID 10/24/17 Collagenase Clostridium Hist. [Santyl -] 1 applic TP TID PRN 10/24/17 Furosemide [Lasix -] 40 mg GT DAILY 10/24/17 Potassium Chloride [Potassium Chloride Oral Liquid] 20 meq GT DAILY 10/24/17 Zinc Oxide 20% Topical Oint 454 gm NR BID PRN 10/24/17 Albuterol 2.5/Ipratropium 0.5 [Duoneb -] 1 amp NEB TID 03/09/18 Ergocalciferol (Vitamin D2) [Calcidol] 6.25 ml PO WEEKLY 03/09/18 Mupirocin Ointment [Bactroban 2% Ointment -] 1 applic TP BID 03/09/18 Lactobacillus Acidophilus [Bacid -] 1 tab GT BID tab 03/12/18 levETIRAcetam [Keppra Oral Solution -] 500 mg GT BID cup 05/18/18 Amino Acids/Protein Hydrolys [Prosource No Carb Liquid Pkt] 30 ml GT DAILY packet 05/03/19 Digoxin [Lanoxin -] 0.125 mg GT DAILY tablet 05/03/19 Levothyroxine [Synthroid -] 150 mcg GT DAILY@0700 tablet 05/03/19
[2019-05-03 15:54] VITALS: BP 106/64; PULSE 102; TEMP 98
== END 2019-05-03 16:33 | DRG 207 ==
LOC: JER 23:56 → JERBED 04-26 02:58 → J5S 04-26 14:55
PROVIDERS: ADMIT Internal Medicine; ATTEND Internal Medicine
PROC: 5A1955Z Respiratory Ventilation, Greater than 96 Consecutive Hours (ICD-10-PCS; principal; 2019-04-26)
DX: J18.9 Pneumonia, unspecified organism (principal); R53.2 Functional quadriplegia; N39.0 Urinary tract infection, site not specified; Z43.1 Encounter for attention to gastrostomy; G93.1 Anoxic brain damage, not elsewhere classified; J96.10 Chronic respiratory failure, unspecified whether with hypoxia or hypercapnia; I95.9 Hypotension, unspecified; B96.20 Unspecified Escherichia coli [E. coli] as the cause of diseases classified elsewhere; Z93.0 Tracheostomy status; D64.9 Anemia, unspecified; E87.6 Hypokalemia; I48.91 Unspecified atrial fibrillation; K21.9 Gastro-esophageal reflux disease without esophagitis; E03.9 Hypothyroidism, unspecified; I10 Essential (primary) hypertension; L89.159 Pressure ulcer of sacral region, unspecified stage
CPT/HCPCS: 36415; 71045-TC-FY; 74018-TC-FY; 74019-TC-FY; 80048; 80053; 80162; 80177; 81003; 82272; 82803; 83540; 83550; 83605; 84443; 84484; 85025; 85027; 85610; 85730; 87040; 87086; 87186; 93005; 93010; 94002; 94640; 99285-25; J7030

== ENCOUNTER 2019-07-02 07:34 | Emergency (ER) | payer OTHER ==
[2019-07-02 07:45] VITALS: BP 106/65; TEMP 97.7; BMI 21.5
--- NOTE | 2019-07-02 08:05 | PDOC ---
History of Present Illness - General Chief Complaint: G Tube Problem Stated Complaint: GT REPLACEMENT Time Seen by Provider: 07/02/19 07:55 History Source: Patient Exam Limitations: Clinical Condition - History of Present Illness Initial Comments: 64 yo M with a hx of anoxic brain injury secondary to [place] (05/2017) with a resultant vegetative state, tracheostomy on vent, G-tube, quadraplegica, nonverbal with eyes open, HTN, hepatitis C, and atrial fibrillation (on eliquis) presents to the emergency department for G-tube replacement. Prior to pull out, he had a 18 [address] g-tube in place. [facility]. A sevilla catheter was placed by them to act as a placeholder. [facility] the [facility], the g-[facility] was [facility] for at least 8 weeks. Past History - Past Medical History Allergies/Adverse Reactions: Allergies Allergy/AdvReac Type Severity Reaction Status Date / Time No Known Allergies Allergy Verified 07/02/19 07:37 Home Medications: Ambulatory Orders Acetaminophen [Tylenol .Extra-Strength -] 500 mg GT Q6H PRN 07/31/17 Hypromellose 0.5% Opth Soln [Artificial Tears] 1 drop OU QID 07/31/17 Metoprolol Tartrate [Lopressor -] 50 mg GT BID #60 tablet 08/10/17 Amiodarone HCl [Cordarone -] 200 mg GT DAILY 10/24/17 Apixaban [Eliquis -] 5 mg GT BID 10/24/17 Collagenase Clostridium Hist. [Santyl -] 1 applic TP TID PRN 10/24/17 Furosemide [Lasix -] 40 mg GT DAILY 10/24/17 Potassium Chloride [Potassium Chloride Oral Liquid] 20 meq GT DAILY 10/24/17 Zinc Oxide 20% Topical Oint 454 gm NR BID PRN 10/24/17 Albuterol 2.5/Ipratropium 0.5 [Duoneb -] 1 amp NEB TID 03/09/18 Ergocalciferol (Vitamin D2) [Calcidol] 6.25 ml PO WEEKLY 03/09/18 Mupirocin Ointment [Bactroban 2% Ointment -] 1 applic TP BID 03/09/18 Lactobacillus Acidophilus [Bacid -] 1 tab GT BID tab 03/12/18 levETIRAcetam [Keppra Oral Solution -] 500 mg GT BID cup 05/18/18 Amino Acids/Protein Hydrolys [Prosource No Carb Liquid Pkt] 30 ml GT DAILY packet 05/03/19 Digoxin [Lanoxin -] 0.125 mg GT DAILY tablet 05/03/19 Levothyroxine [Synthroid -] 150 mcg GT DAILY@0700 tablet 05/03/19 Ascorbic Acid [Vitamin C -] 500 mg GT DAILY 07/02/19 Anemia: Yes Asthma: No Cancer: Yes (malignant neoplasm of penis, scrotum,) Cardiac Disorders: Yes (RHEUMATIC MITRAL VALVE DISEASE, atrial fibrillation) CVA: No COPD: Yes CHF: Yes Dementia: No Diabetes: No GI Disorders: Yes (gerd) Disorders: No HTN: Yes Hypercholesterolemia: No Kidney Stones: No Liver Disease: No Seizures: Yes (drug related seizure 12/2012) Thyroid Disease: Yes (HYPOTHYROID) - Surgical History Abdominal Surgery: No Appendectomy: No Cardiac Surgery: No Cholecystectomy: No Lung Surgery: No Neurologic Surgery: No Orthopedic Surgery: No - Reproductive History Testicular Surgery: No - Immunization History Immunization Up to Date: Yes (Unkown) - Psycho Social/Smoking Cessation Hx Smoking History: Unknown if ever smoked Have you smoked in the past 12 months: No If you are a former smoker, when did you quit?: 9 years ago Hx Alcohol Use: Yes (in past only) Drug/Substance Use Hx: No Substance Use Type: None Hx Substance Use Treatment: Yes Review of Systems - Review of Systems Able to Perform ROS?: No (clinical condition) *Physical Exam - Vital Signs Last Vital Signs Temp Pulse Resp BP Pulse Ox 97.7 F 104 H 20 106/65 97 07/02/19 07:40 07/02/19 07:40 07/02/19 07:40 07/02/19 07:40 07/02/19 07:40 - Physical Exam General Appearance: Yes: Nourished, Appropriately Dressed, Other (vented via trach. non responsive to verbal, touch, and physical stimuli.). No: Apparent Distress, Alcohol on Breath HEENT: positive: Other (atraumatic. mucuous membranes moist. no pale conjunctivae) Neck: positive: Trachea midline, Supple, Other (tracheostomy in place; no purulence around the site). negative: Tender, Lymphadenopathy (R), Lymphadenopathy (L) Respiratory/Chest: positive: Lungs Clear, Normal Breath Sounds, Other (on ventilator). negative: Chest Tender, Respiratory Distress, Accessory Muscle Use Cardiovascular: positive: Regular Rhythm, Regular Rate, S1, S2. negative: Systolic Murmur Gastrointestinal/Abdominal: positive: Normal Bowel Sounds, Flat, Soft, Other (site on the LUQ region where g-tube was in place. [facility]villa [facility]). negative: Tender, Distended, Guarding Lymphatic: negative: Adenopathy Extremity: positive: Normal Capillary Refill, Normal Inspection, Normal Range of Motion. negative: Tender Integumentary: positive: Normal Color, Dry, Warm Neurologic: negative: Alert Medical Decision Making - Medical Decision Making 64 yo M with a hx of anoxic brain injury secondary to [place] (05/2017) with a resultant vegetative state, tracheostomy on vent, G-tube, quadraplegica, nonverbal with eyes open, HTN, hepatitis C, and atrial fibrillation (on eliquis) presents to the emergency department for G-tube replacement. Initial vitals; Initial Vital Signs Temp Pulse Resp BP Pulse Ox 97.7 F 104 H 20 106/65 97 07/02/19 07:40 07/02/19 07:40 07/02/19 07:40 07/02/19 07:40 07/02/19 07:40 Work up: patient presents with g-tube placement. site appears atraumatic. no purulence or surrounding erythema. 18 monegasque placed. initial xray shows potential artifact that could be consistent with leakage A second xray was done that shows the artifact as stable, likely not related to the g-tube leak Patient discharged. Discharge - Discharge Information Problems reviewed: Yes Clinical Impression/Diagnosis: Dislodged gastrostomy tube Disposition: [facility] FACILITY - Admission No - Follow up/Referral [place] [facility] [place] [facility] [place]] - Patient Discharge Instructions Patient Printed Discharge Instructions: How to Care for Your PEG Tube, Percutaneous Endoscopic Gastrostomy Additional Instructions: You were seen in the emergency department for the evaluation of your g tube replacement. It has been replaced. Please follow up with the primary medical doctor within 1 week after discharge. Please return if it is dislodged again. Thank you. - Post Discharge Activity
--- NOTE | 2019-07-02 08:17 | PDOC ---
Attending Attestation - Resident Resident Name: Alen Recinos - ED Attending Attestation I have performed the following: I have examined & evaluated the patient, The case was reviewed & discussed with the resident, I agree w/resident's findings & plan, Exceptions are as noted - HPI HPI: 07/02/19 08:17 64 years old anoxic brain injury secondary to [place] persistent vegetative state trached vent G-tube presents with G-tube for G-tube replacement - Physicial Exam PE: 07/05/19 14:05 Vitals: Triage Vital signs reviewed General Appearance: Chronically ill, vented Head: Atraumatic, Cardiac: Regular rate and rhythym, Lungs: Clear to auscultation bilateral, good air movement bilaterally, Abdomen: Soft, non distended, normal bowel sounds, non tender to palpation Boucher catheter maintaining stoma of G-tube site - Medical Decision Making 07/05/19 14:05 G-tube replaced questionable artifact at first x-ray repeated 2 more times artifact remained does not increase in density very low suspicion for leak will discharge back to skilled nursing. Discharge - Discharge Information Problems reviewed: Yes Clinical Impression/Diagnosis: Dislodged gastrostomy tube Disposition: SNF FACILITY - Follow up/Referral Referrals: [facility] [place] [facility] [place] [Provider Group] - Patient Discharge Instructions Patient Printed Discharge Instructions: How to Care for Your PEG Tube, Percutaneous Endoscopic Gastrostomy Additional Instructions: You were seen in the emergency department for the evaluation of your g tube replacement. It has been replaced. Please follow up with the primary medical doctor within 1 week after discharge. Please return if it is dislodged again. Thank you. - Post Discharge Activity
[2019-07-02 08:56] VITALS: PULSE 90
== END 2019-07-02 11:37 ==
LOC: JER 07:34
DX: K94.23 Gastrostomy malfunction (principal)
CPT/HCPCS: 74018-TC-FY; 99282-25

== ENCOUNTER 2019-10-02 15:34 | Inpatient (IN) | payer OTHER ==
[2019-10-02] MEDS ORDERED: ACETAMINOPHEN 1000 MG/100 ML VIAL (NON FORMULARY) IVPB ONE (16:11)
[2019-10-02] MEDS ORDERED: LACTATED RINGERS SOLUTION 1000 ML INFUS.BAG IV ONE (16:11)
[2019-10-02] MEDS ORDERED: ACETAMINOPHEN INJECTION 100 ML IVPB ONE (16:26)
[2019-10-02] MEDS ORDERED: cefTAZidime PENTAHYDRATE 2 GM/11.5 ML SYRINGE (RESTRICTED TO ID) IVPUSH ONE (16:36)
--- NOTE | 2019-10-02 16:37 | PDOC ---
History of Present Illness - General Chief Complaint: Hematuria Stated Complaint: HEMATURIA Time Seen by Provider: 10/02/19 16:04 History Source: Halfway Records, Old Records Exam Limitations: Other (Persistent Vegetative State) - History of Present Illness Initial Comments: HPI: 64 y/o male presenting to [facility] ER from [facility] for evaluation of hematuria and fever. Transfer paperwork indicates the pt has had hematuria for the past several weeks. Pt is in a persistent vegetative state following anoxic brain injury. Unable to contribute to HPI. Medical Hx: - Anoxic brain injury secondary to LA (05/2017) with a resultant vegetative state - Tracheostomy on vent - G-tube - Quadraplegica - Nonverbal with eyes open - HTN - Hepatitis C - Atrial fibrillation (on Eliquis) Past History - Medical History Allergies/Adverse Reactions: Allergies Allergy/AdvReac Type Severity Reaction Status Date / Time No Known Allergies Allergy Verified 10/02/19 15:55 Home Medications: Ambulatory Orders Acetaminophen [Tylenol .Extra-Strength -] 500 mg GT Q6H PRN 07/31/17 Hypromellose 0.5% Opth Soln [Artificial Tears] 1 drop OU QID 07/31/17 Metoprolol Tartrate [Lopressor -] 50 mg GT BID #60 tablet 08/10/17 Amiodarone HCl [Cordarone -] 200 mg GT DAILY 10/24/17 Apixaban [Eliquis -] 5 mg GT BID 10/24/17 Furosemide [Lasix -] 40 mg GT DAILY 10/24/17 Potassium Chloride [Potassium Chloride Oral Liquid] 20 meq GT DAILY 10/24/17 Zinc Oxide 20% Topical Oint 454 gm NR BID PRN 10/24/17 Albuterol 2.5/Ipratropium 0.5 [Duoneb -] 1 amp NEB TID 03/09/18 Ergocalciferol (Vitamin D2) [Calcidol] 6.25 ml PO WEEKLY 03/09/18 Lactobacillus Acidophilus [Bacid -] 1 tab GT BID tab 03/12/18 levETIRAcetam [Keppra Oral Solution -] 500 mg GT BID cup 05/18/18 Amino Acids/Protein Hydrolys [Prosource No Carb Liquid Pkt] 30 ml GT DAILY packet 05/03/19 Digoxin [Lanoxin -] 0.125 mg GT DAILY tablet 05/03/19 Ascorbic Acid [Vitamin C -] 500 mg GT DAILY 07/02/19 Acetaminophen 650 mg PO DAILY PRN 08/09/19 Levothyroxine [Synthroid -] 150 mcg GT DAILY@0600 08/09/19 Acetaminophen [Tylenol .Extra-Strength -] 500 mg NGT Q6H 08/10/19 Calcium Alginate [Matthew] 1 bandage TP DAILY 08/10/19 Anemia: Yes Asthma: No Cancer: Yes (malignant neoplasm of penis, scrotum,) Cardiac Disorders: Yes (RHEUMATIC MITRAL VALVE DISEASE, atrial fibrillation) CVA: No COPD: Yes CHF: Yes Dementia: No Diabetes: No GI Disorders: Yes (gerd) Disorders: No HTN: Yes Hypercholesterolemia: No Kidney Stones: No Liver Disease: No Seizures: Yes (drug related seizure 12/2012) Thyroid Disease: Yes (HYPOTHYROID) - Surgical History Abdominal Surgery: No Appendectomy: No Cardiac Surgery: No Cholecystectomy: No Lung Surgery: No Neurologic Surgery: No Orthopedic Surgery: No - Reproductive History Testicular Surgery: No - Immunization History Immunization Up to Date: Yes (Unkown) - Psycho-Social/Smoking History Smoking History: Unknown if ever smoked Have you smoked in the past 12 months: No If you are a former smoker, when did you quit?: 9 years ago - Substance Abuse Hx (Audit-C & DAST Scrn) How often the patient has a drink containing alcohol: Never Score: In Men: 4 or > Positive; In Women: 3 or > Positive: 0 Screen Result (Pos requires Nsg. Audit-10AR): Negative In the last yr the pt used illegal drug/Rx for NonMed reason: No Score: Yes response is considered Positive: 0 Screen Result (Positive result requires Nsg. DAST-10): Negative Review of Systems - Review of Systems Able to Perform ROS?: No Comments:: Unable to obtain secondary to pts baseline mental status. *Physical Exam - Vital Signs Last Vital Signs Temp Pulse Resp BP Pulse Ox 101 F H 85 13 97/62 100 10/02/19 15:35 10/02/19 15:35 10/02/19 15:57 10/02/19 15:35 10/02/19 16:04 - Physical Exam Vital signs and nursing notes reviewed. Constitutional- Nontoxic adult male in no acute distress. Obese body habitus. Found semi-fowlers on hospital bed. Head- Normocephalic. No obvious external signs of trauma. Eyes- Left-cesar gaze deviation. Sclerae white. Conjunctiva moist. Neck- Supple, trachea is midline. Tracheotomy site well appearing with clean dressing. Cardiovascular / Chest- Irregularly irregular rate and rhythm. No murmur, rubs, clicks, or gallops. Peripheral pulses- radial pulses full. Respiratory- Mechanically ventilated via trach. Equal chest rise and fall. No stridor, no wheezing, no rhonchi. Gastrointestinal / Abd - Suprapubic fullness. Globally, abdomen is soft and nondistended. Suprapubic cath in place. Site is clean and dry with dressing in place. Aldo hematuria without clots noted in catheter collection tube and bag. Neuro- Eyes open. No tracking of movement. No blink to threat. No local withdrawal to painful stimuli. Skin- Mildly diaphoretic. Pressure ulcers to both feet and adjacent to left lateral malleolus. Procedures - Additional Procedures Progress: Ultrasound Guided Peripheral IV Placement PROCEDURE NOTE: IV Placement under Ultrasound Guidance PROCEDURE EDGE BLACKER: Tate Smith M.D., PGY2 Indication: IV access required. Multiple attempts at peripheral IV placement were made by the nursing/house staff without success. Procedure: The area was prepped in the usual fashion. The L basilic vein was cannulated with a 20 gauge angiocath with use of dynamic ultrasound to identify the vein. The patient tolerated the procedure well. Complications: none ED Treatment Course - LABORATORY CBC & Chemistry Diagram: 10/09/19 13:15 10/09/19 13:15 - RADIOLOGY Radiology Studies Ordered: Category Date Time Status CHEST X-RAY PORTABLE* [RAD] Stat Radiology 10/02/19 16:09 Ordered Medical Decision Making - Medical Decision Making 64 y/o male with fever and hematuria for several weeks. Possible acute cystitis vs hematuria 2/2 DOAC. Suspected PNA vs pleural effusion on CXR. GB appeared thickened on POCUS. CTAP ordered w/ and w/o contrast to evaluate for possible cholecystitis vs abscess vs nephrolithiasis. Reviewed previous Ordered Vancyomycin and Ceftazidime for abx coverage. Pt admitted to [facility]. Discharge - Discharge Information Problems reviewed: Yes Clinical Impression/Diagnosis: Ventilator associated pneumonia, UTI (urinary tract infection), Hematuria Condition: Stable - Admission Yes - Follow up/Referral - Patient Discharge Instructions - Post Discharge Activity
[2019-10-02 17:11] LABS: BASO % 0.9 % (0-2.0); HEMATOCRIT 26.3 % (35.4-49); HEMOGLOBIN 8.3 GM/dL (11.7-16.9); LYMPH % 14.9 % (8-40); MCH 27.6 pg (25.7-33.7); MCHC 31.6 g/dl (32.0-35.9); MEAN CELL VOLUME 87.5 fl (80-96); MEAN PLT VOLUME 9.9 fl (7.5-11.1); MONO % 7.6 % (3.8-10.2); NEUT % 73.6 % (42.8-82.8); PLATELET COUNT 239 K/MM3 (134-434); RDW 16.4 % (11.9-15.9); WHITE BLOOD COUNT 8.7 K/mm3 (4.0-10.0)
[2019-10-02 17:26] LABS: EPI CELLS >36 /uL (0-25.1); HYALINE CASTS 55 /uL (0-3.1); PH,URINE >= 9.0 (5.0-8.0); URINE APPEARANCE TURBID; URINE BACTERIA 4549 /uL (0-1359); URINE BILIRUBIN 1+ (NEGATIVE); URINE COLOR RED; URINE GLUCOSE (UA) NEGATIVE (NEGATIVE); URINE KETONE NEGATIVE (NEGATIVE); URINE LEUK ESTERASE 3+ (NEGATIVE); URINE NITRITE POSITIVE (NEGATIVE); URINE PROTEIN 2+ (NEGATIVE); URINE UROBILINOGEN 0.2 mg/dL (0.2-1.0); URINE WBC 1472 /uL (0-25.8)
[2019-10-02 17:39] LABS: ALBUMIN 2.4 g/dl (3.4-5.0); BILIRUBIN,TOTAL 0.3 mg/dL (0.2-1); BLOOD UREA NITROGEN 59.7 mg/dL (7-18); CALCIUM 8.6 mg/dL (8.5-10.1); POTASSIUM 4.3 mmol/L (3.5-5.1); TOT PROT 7.2 g/dl (6.4-8.2)
[2019-10-02] MEDS ORDERED: VANCOMYCIN HCL 1,500 MG in DEXTROSE 5%-WATER - 500 ML IVPB ONE (17:43)
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
[2019-10-03] MEDS: SODIUM CHLORIDE 1,000 ML IV SCH (03:30)
[2019-10-03] MEDS ORDERED: VANCOMYCIN 1,000 MG in DEXTROSE 5%-WATER - 250 ML IVPB SCH (06:45)
[2019-10-03] MEDS ORDERED: ACETAMINOPHEN 500 MG TABLET (FP) GT PRN (07:16)
[2019-10-03] MEDS ORDERED: VANCOMYCIN 1 GRAM (PRE-DOCKED) 1,000 MG/250 ML BAG IVPB ONE ×2 (07:35→19:57)
[2019-10-03] MEDS ORDERED: ALBUTEROL SO4 2.5/IPRATROPIUM 0.5 INH SOL 3 ML VIAL.NEB. NEB ONE ×2 (09:04→14:14)
[2019-10-03] MEDS ORDERED: VANCOMYCIN 1 GRAM (PRE-DOCKED) 1,000 MG/250 ML BAG IVPB SCH (09:05)
[2019-10-03] MEDS: ALBUTEROL SO4 2.5/IPRATROPIUM 0.5 INH SOL 3 ML VIAL.NEB. NEB SCH ×3 (09:20→14:10)
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
[2019-10-03] MEDS ORDERED: CEFTAZIDIME PENTAHYDRATE 2 GM in DEXTROSE 5%-WATER 100 ML IVPB SCH (10:00)
[2019-10-03] MEDS ORDERED: cefTAZidime PENTAHYDRATE 1 GM/50ML PRE-DOCKED (RESTRICTED TO ID) IVPB SCH (10:00)
[2019-10-03 10:35] LABS: BASO % 0.5 % (0-2.0); EOS % 4.2 % (0-4.5); HEMATOCRIT 26.5 % (35.4-49); HEMOGLOBIN 8.3 GM/dL (11.7-16.9); LYMPH % 18.4 % (8-40); MCH 27.1 pg (25.7-33.7); MCHC 31.2 g/dl (32.0-35.9); MEAN CELL VOLUME 86.8 fl (80-96); MEAN PLT VOLUME 9.6 fl (7.5-11.1); MONO % 7.8 % (3.8-10.2); NEUT % 69.1 % (42.8-82.8); PLATELET COUNT 172 K/MM3 (134-434); RBC 3.05 M/mm3 (4.00-5.60); RDW 16.6 % (11.9-15.9); WHITE BLOOD COUNT 5.4 K/mm3 (4.0-10.0)
[2019-10-03] MEDS ORDERED: LORazepam 2 MG/ML SDV VIAL ONE (10:37)
[2019-10-03] MEDS: ARTIFICIAL TEARS (POLYVINYL ALCOHOL) OPTH DROPS OU SCH ×4 (10:47→23:55)
[2019-10-03] MEDS: levETIRAcetam 500 MG/5 ML ORAL SOLUTION (UNIT-DOSE CUPS) GT SCH ×2 (10:48→23:55)
[2019-10-03] MEDS: LEVOTHYROXINE NA 150 MCG TABLET GT SCH (10:48)
[2019-10-03 11:10] LABS: ALBUMIN 2.3 g/dl (3.4-5.0); BILIRUBIN,TOTAL 0.4 mg/dL (0.2-1); BLOOD UREA NITROGEN 45.8 mg/dL (7-18); CALCIUM 8.6 mg/dL (8.5-10.1); POTASSIUM 3.9 mmol/L (3.5-5.1); TOT PROT 6.9 g/dl (6.4-8.2)
[2019-10-03] MEDS ORDERED: LORazepam 2 MG/ML SDV VIAL IVPUSH PRN (11:11)
[2019-10-03 11:12] LABS: CREATININE 0.8 mg/dL (0.55-1.3)
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
--- NOTE | 2019-10-03 12:12 | PN ---
Progress Note (short form) - Note Progress Note: ID CONSULT DICTATED GROSS HEMATURIA/UTI R/O SEPSIS SECONDARY TO UTI R LL INFILTRATE / EFFUSION CHRONIC RESP FAILURE ANOXIC BRAIN INJURY S/P SPT R/O CHRONIC CHOLECYSTITIS EXTENSIVE GENITAL CONDYLOMA HX + URINE C/S PSEUDOMONAS R/O COVID-19 AWAIT SEPSIS W/U EMPIRIC VANCOMYCIN/ CEFTAZIDIME
--- NOTE | 2019-10-03 13:29 | CON.GI ---
Consult Consult Specialty:: GI Referred by:: Dr. Luann Banuelos Reason for Consultation:: Cholecysitis - History of Present Illness Chief Complaint: Patient non-verbal. history from the chart History of Present Illness: 64m anoxic brain injury, VT, vegetative state, trach, peg, sp cath, on eliquis, admitted from [place] for evaluation of fever. Temp [address] shows likely acute cholecystitis with thickening and inflammation. Abdominal US reveals multiple gallstones, thickenbed GB wall without pericholecystic fluid. Patient seen by surgery, Pt not a candidate for surgery and recommend percuateous drainage. Liver chemistries not c/w biliary obstruction. Had a seizure today. Noted hypotensive currently. 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) Pulmonary: Yes: COPD (ventilator dependent with tracheostomy), Other (trach/vent dependent) Gastrointestinal: Yes: Constipation, GERD, Other (Feeding gastrostomy (PEG) tube) Hepatobiliary: Yes: Cholelithiasis, Hepatitis C (by other's history) Renal/: Yes: Neurogenic Bladder (with suprapubic cystostomy) Infectious Disease: Yes: Other (genital condylomata, ??typhoid fever) Psych: Yes: Addictions (alcoholism) ENT: Yes: Other (dry eye syndrome) Endocrine: Yes: Hypothyroidism - Past Surgical History Past Surgical History: Yes: Upper Endoscopy - Alcohol/Substance Use Hx Alcohol Use: Yes (in past only) History of Substance Use: reports: Heroin (in past only) - Smoking History Smoking history: Former smoker Have you smoked in the past 12 months: No If you are a former smoker, when did you quit?: 9 years ago - Social History Usual Living Arrangement: Prison ADL: Support Services History of Recent Travel: No Home Medications - Allergies Allergies/Adverse Reactions: Allergies Allergy/AdvReac Type Severity Reaction Status Date / Time No Known Allergies Allergy Verified 10/02/19 15:55 - Home Medications Home Medications: Ambulatory Orders Acetaminophen [Tylenol .Extra-Strength -] 500 mg GT Q6H PRN 07/31/17 Hypromellose 0.5% Opth Soln [Artificial Tears] 1 drop OU QID 07/31/17 Metoprolol Tartrate [Lopressor -] 50 mg GT BID #60 tablet 08/10/17 Amiodarone HCl [Cordarone -] 200 mg GT DAILY 10/24/17 Apixaban [Eliquis -] 5 mg GT BID 10/24/17 Furosemide [Lasix -] 40 mg GT DAILY 10/24/17 Potassium Chloride [Potassium Chloride Oral Liquid] 20 meq GT DAILY 10/24/17 Zinc Oxide 20% Topical Oint 454 gm NR BID PRN 10/24/17 Albuterol 2.5/Ipratropium 0.5 [Duoneb -] 1 amp NEB TID 03/09/18 Ergocalciferol (Vitamin D2) [Calcidol] 6.25 ml PO WEEKLY 03/09/18 Lactobacillus Acidophilus [Bacid -] 1 tab GT BID tab 03/12/18 levETIRAcetam [Keppra Oral Solution -] 500 mg GT BID cup 05/18/18 Amino Acids/Protein Hydrolys [Prosource No Carb Liquid Pkt] 30 ml GT DAILY packet 05/03/19 Digoxin [Lanoxin -] 0.125 mg GT DAILY tablet 05/03/19 Ascorbic Acid [Vitamin C -] 500 mg GT DAILY 07/02/19 Acetaminophen 650 mg PO DAILY PRN 08/09/19 Levothyroxine [Synthroid -] 150 mcg GT DAILY@0600 08/09/19 Acetaminophen [Tylenol .Extra-Strength -] 500 mg NGT Q6H 08/10/19 Calcium Alginate [Matthew] 1 bandage TP DAILY 08/10/19 Review of Systems Unable to obtain ROS, reason: Non-verbal Physical Exam-GI Vital Signs: Vital Signs Temperature 98.6 F 10/03/19 01:10 Pulse Rate 95 H 10/03/19 13:01 Respiratory Rate 12 10/03/19 13:01 Blood Pressure 96/67 10/03/19 13:01 O2 Sat by Pulse Oximetry (%) 100 10/03/19 11:50 Constitutional: Yes: Calm Eyes: No: Sclera Icterus Neck: Yes: Other (Trach) Cardiovascular: Yes: Tachycardia, Pulse Irregular Respiratory: Yes: Diminished (at BS B/L) Gastrointestinal Inspection: No: Distention, Other (G-Tube in LUQ. No peripeg induration / fluctuance. I removed the dressing from under the G-Tube) ...Auscultate: Yes: Normoactive Bowel Sounds ...Palpate: Yes: Other (Unable to elicit grimacing. Possibly some guarding upon palparion of the RUQ) ...Percussion: No: Tympanitic Extremities: Yes: Other (Stasis changes b/l LE) Edema: LLE: Trace, RLE: Trace Neurological: Yes: Aphasia Labs: CBC, BMP 10/03/19 10:12 10/03/19 10:12 Hepatic Panel Total Bilirubin 0.4 mg/dL (0.2-1) 10/03/19 10:12 AST 21 U/L (15-37) 10/03/19 10:12 ALT 24 U/L (13-61) 10/03/19 10:12 Alkaline Phosphatase 60 U/L (45-117) 10/03/19 10:12 Albumin 2.3 g/dl (3.4-5.0) L 10/03/19 10:12 Imaging - Results Cat Scan: Report Reviewed, Image Reviewed Ultrasound: Report Reviewed Problem List - Problems (1) Acute calculous cholecystitis Assessment/Plan: LFTs not suggestive of biliary opbstructionm, however, they do not preclude acute cholscystitis Seen by surgery. Not a surgical candidate Conservative therapy with Abx vs. Percutaneous drainage when able as he is on eliquis with management of cholecystostomy and length of treatment with it per surgery and IR: Goals of care will need to be addressed with the family IV Abx per ID Aspiration precautions GI prophylaxis Recall GI as needed Code(s): K80.00 - CALCULUS OF GALLBLADDER W ACUTE CHOLECYST W/O OBSTRUCTION
--- NOTE | 2019-10-03 17:23 | CON.CARD ---
Consult Consult Specialty:: Cardiology Reason for Consultation:: s/p NV-->vetetative state; AF on apixaban; now with acute cholecystitis - History of Present Illness Chief Complaint: Trached and ventilated; eyes open, moves head; does not follow verbal queries History of Present Illness: 64 y/o male from [facility] with a PMHx of Anoxic Brain Injury (secondary to NV 05/2017, with a resultant vegetative state), Tracheostomy on vent, HTN, Afib (on Eliquis), Hepatitis C, Quadraplegic. Who presents to the ED for evaluation of hematuria and fever. Patient has an DARREN unable to provide HPI. 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) Pulmonary: Yes: COPD (ventilator dependent with tracheostomy), Other (trach/vent dependent) Gastrointestinal: Yes: Constipation, GERD, Other (Feeding gastrostomy (PEG) tube) Hepatobiliary: Yes: Cholelithiasis, Hepatitis C (by other's history) Renal/: Yes: Neurogenic Bladder (with suprapubic cystostomy) Infectious Disease: Yes: Other (genital condylomata, ??typhoid fever) Psych: Yes: Addictions (alcoholism) ENT: Yes: Other (dry eye syndrome) Endocrine: Yes: Hypothyroidism - Past Surgical History Past Surgical History: Yes: Upper Endoscopy - Alcohol/Substance Use Hx Alcohol Use: Yes (in past only) History of Substance Use: reports: Heroin (in past only) - Smoking History Smoking history: Former smoker Have you smoked in the past 12 months: No If you are a former smoker, when did you quit?: 9 years ago - Social History Usual Living Arrangement: Senior Living ADL: Support Services History of Recent Travel: No Home Medications - Allergies Allergies/Adverse Reactions: Allergies Allergy/AdvReac Type Severity Reaction Status Date / Time No Known Allergies Allergy Verified 10/02/19 15:55 - Home Medications Home Medications: Ambulatory Orders Acetaminophen [Tylenol .Extra-Strength -] 500 mg GT Q6H PRN 07/31/17 Hypromellose 0.5% Opth Soln [Artificial Tears] 1 drop OU QID 07/31/17 Metoprolol Tartrate [Lopressor -] 50 mg GT BID #60 tablet 08/10/17 Amiodarone HCl [Cordarone -] 200 mg GT DAILY 10/24/17 Apixaban [Eliquis -] 5 mg GT BID 10/24/17 Furosemide [Lasix -] 40 mg GT DAILY 10/24/17 Potassium Chloride [Potassium Chloride Oral Liquid] 20 meq GT DAILY 10/24/17 Zinc Oxide 20% Topical Oint 454 gm NR BID PRN 10/24/17 Albuterol 2.5/Ipratropium 0.5 [Duoneb -] 1 amp NEB TID 03/09/18 Ergocalciferol (Vitamin D2) [Calcidol] 6.25 ml PO WEEKLY 03/09/18 Lactobacillus Acidophilus [Bacid -] 1 tab GT BID tab 03/12/18 levETIRAcetam [Keppra Oral Solution -] 500 mg GT BID cup 05/18/18 Amino Acids/Protein Hydrolys [Prosource No Carb Liquid Pkt] 30 ml GT DAILY packet 05/03/19 Digoxin [Lanoxin -] 0.125 mg GT DAILY tablet 05/03/19 Ascorbic Acid [Vitamin C -] 500 mg GT DAILY 07/02/19 Acetaminophen 650 mg PO DAILY PRN 08/09/19 Levothyroxine [Synthroid -] 150 mcg GT DAILY@0600 08/09/19 Acetaminophen [Tylenol .Extra-Strength -] 500 mg NGT Q6H 08/10/19 Calcium Alginate [Matthew] 1 bandage TP DAILY 08/10/19 Family Medical History Family History: Unable to Obtain Review of Systems Unable to obtain ROS, reason: vegetative state - Risk Factors Known Risk Factors: Yes: Age, Gender, Hypercholesterolemia, Hypertension, Physical Inactivity, Prior NV /Emb Stroke, Other (ventilator dependent; quadriplegic; vegetative state) Vital Signs: Vital Signs Temperature 98.6 F 10/03/19 01:10 Pulse Rate 95 H 10/03/19 13:01 Respiratory Rate 12 10/03/19 14:51 Blood Pressure 96/67 10/03/19 13:01 O2 Sat by Pulse Oximetry (%) 100 10/03/19 14:51 Constitutional: Yes: Other Eyes: Yes: WNL HENT: Yes: Other Neck: Yes: Decreased ROM Respiratory: Yes: Diminished, Mechanically Ventilated, Other Gastrointestinal: Yes: Soft, Other (gastrostomy tube) Renal/: Yes: Anuria, [place] Present (suprapubic) Cardiovascular: Yes: Tachycardia, Pulse Irregular JVD: No Carotid Bruit: No Murmur: Yes: Systolic Murmur, Grade 2 Musculoskeletal: Yes: Muscle Weakness, Other (qudriplegic) Extremities: Yes: Internal Rotation, Other Edema: No Peripheral Pulses WNL: Yes Integumentary: Yes: Other Neurological: Yes: Weakness, Other Psychiatric: Yes: Other - Other Data Labs, Other Data: CBC, BMP 10/03/19 10:12 10/03/19 10:12 Abnormal Lab Results 10/03/19 10/03/19 10:12 10:12 RBC 3.05 L Hgb 8.3 L Hct 26.5 L MCHC 31.2 L RDW 16.6 H Carbon Dioxide 34 H Anion Gap 2 L BUN 45.8 H Random Glucose 149 H Albumin 2.3 L Echo: Report Reviewed (moderate-severely reduced LVEF) Ejection Fraction %: LVEF < 40 % Imaging - Results Chest X-ray: Image Reviewed Cat Scan: Image Reviewed (Chest: pleural effusion) EKG: Image Reviewed (AF) Assessment/Plan Acute/chronic systolic CHF (2017 ECHO: moderate-severely reduced LVEF; acute cholecystitis hematuria; fever s/p NV-->vegetative state quadriplegic tracheostomy/ventilator dependent renal dysfunction HTN AF chronic anemia seizures: on Keppra hypothyroidism: on Synthroid Plan: COVID results pending. Gentle hydration with IV fluids (some pleural effusion noted on CT chest); f/u with hearing screen coordinator if necessary. F/u BUN/Cr, electrolytes, daily weight, Is and Os. If digoxin is to be continued, keep Digoxin level 0.4-0.8 (presently 0.84). Given pt's significantly reduced LVEF, agents to be considered include beta blockers (if no hx asthma), Entresto (or ACEI or ARB) and RAAS (spironolactone) if renal/electrolyte levels allow, though they should be tried one at a time, and at low doses (borderline low BP). Ventilator settings, O2, antibiotics (on cephalosporin and Vancomycin) per paint roller assembler, ID. TSH WNL. f/u lipids. F/u anemia w/u. If procedure is planned, start IV heparin if apixaban has to be held > 48 hours.
--- NOTE | 2019-10-03 17:38 | EKG ---
Test Reason : Blood Pressure : / mmHG Vent. Rate : 092 BPM Atrial Rate : 096 BPM P-R Int : 000 ms QRS Dur : 094 ms QT Int : 412 ms P-R-T Axes : 000 -25 079 degrees QTc Int : 509 ms ATRIAL FIBRILLATION LOW VOLTAGE QRS INCOMPLETE RIGHT BUNDLE BRANCH BLOCK NONSPECIFIC T WAVE ABNORMALITY ABNORMAL ECG WHEN COMPARED WITH ECG OF 09-AUG-2019 15:34, CRITERIA FOR SEPTAL INFARCT ARE NO LONGER PRESENT QT HAS LENGTHENED Confirmed by ERIC DIETRICH MD ([id number]) on 10/03/2019 5:38:16 PM Referred By: Confirmed By:ERIC DIETRICH MD
[2019-10-03] MEDS: CEFTAZIDIME PENTAHYDRATE 2 GM in DEXTROSE 5%-WATER - 100 ML IVPB SCH (18:32)
[2019-10-03] MEDS: VANCOMYCIN 1 GRAM (PRE-DOCKED) 1,000 MG/250 ML BAG IVPB SCH (20:53)
[2019-10-04] MEDS: ALBUTEROL SO4 2.5/IPRATROPIUM 0.5 INH SOL 3 ML VIAL.NEB. NEB SCH ×4 (00:01→21:26)
[2019-10-04] MEDS: SODIUM CHLORIDE 1,000 ML IV SCH (02:23)
[2019-10-04] MEDS: CEFTAZIDIME PENTAHYDRATE 2 GM in DEXTROSE 5%-WATER - 100 ML IVPB SCH ×3 (02:23→18:19)
[2019-10-04] MEDS ORDERED: LEVOTHYROXINE NA 25 MCG TABLET (FP) ONE (05:30)
[2019-10-04] MEDS: LEVOTHYROXINE NA 150 MCG TABLET GT SCH (05:42)
[2019-10-04] MEDS ORDERED: ALBUTEROL SO4 2.5/IPRATROPIUM 0.5 INH SOL 3 ML VIAL.NEB. NEB ONE (07:39)
[2019-10-04] MEDS: ARTIFICIAL TEARS (POLYVINYL ALCOHOL) OPTH DROPS OU SCH ×4 (09:37→22:26)
[2019-10-04] MEDS: levETIRAcetam 500 MG/5 ML ORAL SOLUTION (UNIT-DOSE CUPS) GT SCH ×2 (09:39→22:27)
[2019-10-04] MEDS ORDERED: VANCOMYCIN 1 GRAM (PRE-DOCKED) 1,000 MG/250 ML BAG IVPB ONE (09:41)
[2019-10-04] MEDS: VANCOMYCIN 1 GRAM (PRE-DOCKED) 1,000 MG/250 ML BAG IVPB SCH ×2 (09:53→20:09)
--- NOTE | 2019-10-04 09:57 | PN ---
Progress Note, Physician History of Present Illness: 64 y/o male from [facility] with a PMHx of Anoxic Brain Injury (secondary to [place] 05/2017, with a resultant vegetative state), Tracheostomy on vent, HTN, Afib (on Eliquis), Hepatitis C, Quadraplegic. Who presents to the ED for evaluation of hematuria and fever. Patient has an DARREN unable to provide HPI. - Current Medication List Current Medications: Active Medications Acetaminophen (Tylenol -) 500 mg GT Q6H PRN PRN Reason: PAIN LEVEL 4 - 6 Albuterol/Ipratropium (Duoneb -) 1 amp NEB TID [facility] Last Admin: 10/04/19 07:43 Dose: 1 amp Documented by: Artificial Tears (Artificial Tears) 1 drop OU QID [facility] Last Admin: 10/04/19 09:37 Dose: 1 drop Documented by: Sodium Chloride (Normal Saline -) 1,000 mls @ 42 mls/hr IV ASDIR [facility] Last Admin: 10/04/19 02:23 Dose: 42 mls/hr Documented by: Ceftazidime 2 gm/ Dextrose 100 mls @ 200 mls/hr IVPB Q8H-IV JESUS; Protocol Last Admin: 10/04/19 09:38 Dose: 200 mls/hr Documented by: Vancomycin HCl (Vancomycin (Pre-Docked)) 1,000 mg in 250 mls @ 166.667 mls/hr IVPB BID@0800,2000 [facility]; Protocol Last Admin: 10/04/19 09:53 Dose: 166.667 mls/hr Documented by: Levetiracetam (Keppra Oral Solution -) 500 mg GT BID [facility] Last Admin: 10/04/19 09:39 Dose: 500 mg Documented by: Levothyroxine Sodium (Synthroid -) 150 mcg GT DAILY@0600 [facility] Last Admin: 10/04/19 05:42 Dose: 150 mcg Documented by: Lorazepam (Ativan Injection -) 2 mg IVPUSH Q4H PRN PRN Reason: seizures - Objective Vital Signs: Vital Signs Temperature 98.4 F 10/04/19 06:56 Pulse Rate 98 H 10/04/19 07:44 Respiratory Rate 14 10/04/19 07:44 Blood Pressure 102/82 10/04/19 07:44 O2 Sat by Pulse Oximetry (%) 100 10/04/19 07:44 Eyes: Yes: Conjunctiva Clear, EOM Intact HENT: Yes: Atraumatic, Normocephalic Neck: Yes: WNL, Supple, Trachea Midline Cardiovascular: Yes: WNL, Regular Rate and Rhythm Respiratory: Yes: Diminished, Mechanically Ventilated, Other (s/p tracheostomy) Gastrointestinal: Yes: WNL, Normal Bowel Sounds Genitourinary: Yes: WNL Musculoskeletal: Yes: WNL Extremities: Yes: WNL Edema: No Integumentary: Yes: WNL ...Motor Strength: WNL Psychiatric: Yes: WNL Labs: CBC, BMP 10/03/19 10:12 10/03/19 10:12 Assessment/Plan Acute/chronic systolic CHF (2018 ECHO: moderate-severely reduced LVEF; acute cholecystitis hematuria; fever s/p MT-->vegetative state quadriplegic tracheostomy/ventilator dependent renal dysfunction HTN AF chronic anemia seizures: on Keppra hypothyroidism: on Synthroid Plan: COVID results pending. Gentle hydration with IV fluids (some pleural effusion noted on CT chest); f/u with reports analyst if necessary. F/u BUN/Cr, electrolytes, daily weight, Is and Os. If digoxin is to be continued, keep Digoxin level 0.4-0.8 (presently 0.84). Given pt's significantly reduced LVEF, agents to be considered include beta blockers (if no hx asthma), Entresto (or ACEI or ARB) and RAAS (spironolactone) if renal/electrolyte levels allow, though they should be tried one at a time, and at low doses (borderline low BP). Ventilator settings, O2, antibiotics (on cephalosporin and Vancomycin) per certified alcohol drug counselor, ID. TSH WNL. f/u lipids. F/u anemia w/u. If procedure is planned, start IV heparin if apixaban has to be held > 48 hours. May go medical floor.
--- NOTE | 2019-10-04 11:14 | PN ---
Progress Note, Physician History of Present Illness: AWAKE IN ER NOT VERBALLY RESPONSIVE AFEBRILE WBC WNL CULTURES PENDING - Current Medication List Current Medications: Active Medications Acetaminophen (Tylenol -) 500 mg GT Q6H PRN PRN Reason: PAIN LEVEL 4 - 6 Albuterol/Ipratropium (Duoneb -) 1 amp NEB TID [facility] Last Admin: 10/04/19 07:43 Dose: 1 amp Documented by: Artificial Tears (Artificial Tears) 1 drop OU QID [facility] Last Admin: 10/04/19 09:37 Dose: 1 drop Documented by: Sodium Chloride (Normal Saline -) 1,000 mls @ 42 mls/hr IV ASDIR [facility] Last Admin: 10/04/19 02:23 Dose: 42 mls/hr Documented by: Ceftazidime 2 gm/ Dextrose 100 mls @ 200 mls/hr IVPB Q8H-IV [facility]; Protocol Last Admin: 10/04/19 09:38 Dose: 200 mls/hr Documented by: Vancomycin HCl (Vancomycin (Pre-Docked)) 1,000 mg in 250 mls @ 166.667 mls/hr IVPB BID@0800,2000 [facility]; Protocol Last Admin: 10/04/19 09:53 Dose: 166.667 mls/hr Documented by: Levetiracetam (Keppra Oral Solution -) 500 mg GT BID [facility] Last Admin: 10/04/19 09:39 Dose: 500 mg Documented by: Levothyroxine Sodium (Synthroid -) 150 mcg GT DAILY@0600 [facility] Last Admin: 10/04/19 05:42 Dose: 150 mcg Documented by: Lorazepam (Ativan Injection -) 2 mg IVPUSH Q4H PRN PRN Reason: seizures - Objective Vital Signs: Vital Signs Temperature 98.4 F 10/04/19 10:26 Pulse Rate 114 H 10/04/19 10:26 Respiratory Rate 14 10/04/19 10:26 Blood Pressure 95/74 10/04/19 10:26 O2 Sat by Pulse Oximetry (%) 98 10/04/19 10:26 Constitutional: Yes: No Distress, Obese Cardiovascular: Yes: Regular Rate and Rhythm, S1, S2 Respiratory: Yes: Diminished Gastrointestinal: Yes: Normal Bowel Sounds, Soft, Abdomen, Obese, Other (+GT, + SPT). No: Tenderness Genitourinary: Yes: Other (EXTENSIVE GENITAL CONDYLOMA) Extremities: Yes: Other (DRY ULCER R HEEL) Edema: Yes Labs: CBC, BMP 10/03/19 10:12 10/03/19 10:12 Assessment/Plan GROSS HEMATURIA UTI R/O SEPSIS SECONDARY TO UTI RLL PNEUMONIA ? CHRONIC CHOLECYSTITS CHRONIC RESP FAILURE ANOXIC ENCEPHALOPATHY AWAIT C/S CONTINUE EMPIRIC VANCOMYCIN/ CEFTAZIDIME
--- NOTE | 2019-10-04 11:51 | PN ---
Progress Note, Physician History of Present Illness: Pt seen/ examined in Er chart is reviewed Awake/ non verbal - Current Medication List Current Medications: Active Medications Acetaminophen (Tylenol -) 500 mg GT Q6H PRN PRN Reason: PAIN LEVEL 4 - 6 Albuterol/Ipratropium (Duoneb -) 1 amp NEB TID [facility] Last Admin: 10/04/19 07:43 Dose: 1 amp Documented by: Artificial Tears (Artificial Tears) 1 drop OU QID [facility] Last Admin: 10/04/19 09:37 Dose: 1 drop Documented by: Sodium Chloride (Normal Saline -) 1,000 mls @ 42 mls/hr IV ASDIR [facility] Last Admin: 10/04/19 02:23 Dose: 42 mls/hr Documented by: Ceftazidime 2 gm/ Dextrose 100 mls @ 200 mls/hr IVPB Q8H-IV [facility]; Protocol Last Admin: 10/04/19 09:38 Dose: 200 mls/hr Documented by: Vancomycin HCl (Vancomycin (Pre-Docked)) 1,000 mg in 250 mls @ 166.667 mls/hr IVPB BID@0800,2000 [facility]; Protocol Last Admin: 10/04/19 09:53 Dose: 166.667 mls/hr Documented by: Levetiracetam (Keppra Oral Solution -) 500 mg GT BID [facility] Last Admin: 10/04/19 09:39 Dose: 500 mg Documented by: Levothyroxine Sodium (Synthroid -) 150 mcg GT DAILY@0600 [facility] Last Admin: 10/04/19 05:42 Dose: 150 mcg Documented by: Lorazepam (Ativan Injection -) 2 mg IVPUSH Q4H PRN PRN Reason: seizures - Objective Vital Signs: Vital Signs Temperature 98.4 F 10/04/19 10:26 Pulse Rate 114 H 10/04/19 10:26 Respiratory Rate 14 10/04/19 10:26 Blood Pressure 95/74 10/04/19 10:26 O2 Sat by Pulse Oximetry (%) 98 10/04/19 10:26 Constitutional: Yes: No Distress Neck: Yes: Other (s/p trach- vent) Cardiovascular: Yes: Pulse Irregular. No: Regular Rate and Rhythm Respiratory: Yes: Diminished Gastrointestinal: Yes: Soft, Tenderness, Rebound, Other (g tube) Genitourinary: Yes: Other (Large condylomata) Extremities: Yes: Other (dry heel ulcer) Edema: No Neurological: Yes: Other (awake/ non verbal). No: Unresponsive Labs: CBC, BMP 10/03/19 10:12 10/03/19 10:12 Problem List - Problems (1) Acute calculous cholecystitis Code(s): K80.00 - CALCULUS OF GALLBLADDER W ACUTE CHOLECYST W/O OBSTRUCTION (2) Encounter for screening laboratory testing for COVID-19 virus Code(s): Z11.59 - ENCOUNTER FOR SCREENING FOR OTHER VIRAL DISEASES (3) Hematuria Code(s): R31.9 - HEMATURIA, UNSPECIFIED (4) UTI (urinary tract infection) Code(s): N39.0 - URINARY TRACT INFECTION, SITE NOT SPECIFIED (5) Ventilator associated pneumonia Code(s): J95.851 - VENTILATOR ASSOCIATED PNEUMONIA (6) Anoxic brain injury Code(s): G93.1 - ANOXIC BRAIN DAMAGE, NOT ELSEWHERE CLASSIFIED (7) Chronic respiratory failure Code(s): J96.10 - CHRONIC RESPIRATORY FAILURE, UNSP W HYPOXIA OR HYPERCAPNIA Qualifiers: Respiratory failure complication: unspecified whether with hypoxia or hypercapnia Qualified Code(s): J96.10 - Chronic respiratory failure, unspecified whether with hypoxia or hypercapnia (8) Condylomata acuminata in male Code(s): A63.0 - ANOGENITAL (VENEREAL) WARTS Assessment/Plan This is a 64 y/o unfortunate male from [facility] with a PMHx of Anoxic Brain Injury (secondary to [place] 05/2017, with a resultant vegetative state), Tracheostomy on vent, HTN, Afib (on Eliquis), Hepatitis C, Quadraplegic. Admitted for colecystitis/ hematurea/ uti Abx vent support a/c - hold continue present care Condition gaurded all consults noted and d/w Dr. Conrad also D/w Rn also pt is dnr will follow
--- NOTE | 2019-10-04 13:01 | CONSULT ---
Consultation: REQUESTING PROVIDER:ED team CONSULT REQUEST: We have been asked to medically evaluate this patient for (Tele monitor/vented pt ). HISTORY OF PRESENT ILLNESS: This is a 64 y/o male from [facility] with a PMHx of Anoxic Brain Injury (secondary to [place] 05/2017, with a resultant vegetative state), Tracheostomy on vent, HTN, Afib (on Eliquis), Hepatitis C, Quadraplegic. Who presents to the ED for evaluation of hematuria and fever. Patient has an DARREN unable to provide HPI. REVIEW OF SYSTEMS: unable to obtain PHYSICAL EXAMINATION Vital Signs - 24 hr 10/03/19 10/03/19 10/03/19 13:01 14:51 19:34 Temperature Pulse Rate [ 95 H 100 H Apical] Respiratory 12 12 Rate Blood Pressure 96/67 102/64 [Right Arm] O2 Sat by Pulse 100 98 Oximetry (%) 10/03/19 10/04/19 10/04/19 20:23 00:51 01:22 Temperature Pulse Rate [ 105 H Apical] Respiratory 13 14 12 Rate Blood Pressure 95/68 [Right Arm] O2 Sat by Pulse 100 100 Oximetry (%) 10/04/19 10/04/19 10/04/19 05:17 06:56 07:35 Temperature 98.4 F Pulse Rate [ 106 H Apical] Respiratory 12 18 13 Rate Blood Pressure 98/76 [Right Arm] O2 Sat by Pulse 100 100 Oximetry (%) 10/04/19 10/04/19 10/04/19 07:44 10:26 11:15 Temperature 98.4 F Pulse Rate [ 98 H 114 H Apical] Respiratory 14 14 12 Rate Blood Pressure 102/82 95/74 [Right Arm] O2 Sat by Pulse 100 98 98 Oximetry (%) GENERAL: Awake,non verbal trach dependent HEAD: NC/AT NECK: supple LUNGS: decrease breath sound at the bases HEART: IRR IRR ABDOMEN: Soft, nontender, not distended, normoactive bowel sounds, PEG LUQ with no erythema or infection signs LOWER EXTREMITIES: 2+ pulses, warm, well-perfused.+1 peripheral edema. NEUROLOGICAL: non verbal . Skin: Condylomata michael on genital area Active Medications Generic Name Dose Route Start Last Admin Trade Name Freq PRN Reason Stop Dose Admin Acetaminophen 500 mg 10/03/19 07:16 Tylenol - GT Q6H PRN PAIN LEVEL 4 - 6 Albuterol/Ipratropium 1 amp 10/03/19 07:30 10/04/19 07:43 Duoneb - NEB 1 amp TID [facility] Administration Artificial Tears 1 drop 10/03/19 10:00 10/04/19 09:37 Artificial Tears OU 1 drop QID [facility] Administration Sodium Chloride 1,000 mls @ 42 mls/hr 10/03/19 02:00 10/04/19 02:23 Normal Saline - IV 42 mls/hr ASDIR [facility] Administration Ceftazidime 2 gm/ Dextrose 100 mls @ 200 mls/hr 10/03/19 18:00 10/04/19 09:38 IVPB 200 mls/hr Q8H-IV [facility] Administration Protocol Vancomycin HCl 1,000 mg in 250 mls @ 166.667 mls/hr 10/03/19 20:00 10/04/19 09:53 Vancomycin (Pre-Docked) IVPB 166.667 mls/hr BID@0800,2000 [facility] Administration Protocol Levetiracetam 500 mg 10/03/19 10:00 10/04/19 09:39 Keppra Oral Solution - GT 500 mg BID [facility] Administration Levothyroxine Sodium 150 mcg 10/03/19 07:30 10/04/19 05:42 Synthroid - GT 150 mcg DAILY@0600 [facility] Administration Lorazepam 2 mg 10/03/19 11:11 Ativan Injection - IVPUSH Q4H PRN seizures CBC, BMP 10/03/19 10:12 10/03/19 10:12 ASSESSMENT/PLAN: This is a 64 y/o male from [facility] with a PMHx of Anoxic Brain Injury (secondary to [place] 05/2017, with a resultant vegetative state), Tracheostomy on vent, HTN, Afib (on Eliquis), Hepatitis C, Quadraplegic. Admitted to [facility] for Hematuria, UTI, Pneumonia, Cholecystitis for further evaluation of their emergent condition. # Hematuria # UTI # Ventilatory associated PNA # Vent dependent # Anoxic brain injury # AFib # Sacral ulcer # Functional quadriplegia # R.O Covid 19 # Acute calculus cholecystits not candidate for surgery , IR consult plan : * monitor H/H * cont current abx ceftazidim and vancomycin * I&O , daily weight * Vent management * tele monitor evaluated with attending Dr Sweeney and did not see any changes in monitor for last 3 days , * hold eliquis in term of hemturia * cont digoxin per cardiology , monitor level , monitor any signs of toxicity , monitor K level * head of bed elavtion * Aspiration precautions * pt maintain his BP with no pressor * gentle hydration 42 CC/hr NS * ID consulted * cardiology consulted * vent settings: TV 400, R 12, FIO2 40%, PEEP 5 * Turn Q2h, Guy Lift as needed, Heel Protectors, Fall Precautions * seizure proph on Keppra * tylenol for fever #FEN * NS@42ml/hr * Replete lytes prn * Hold Tube Feedings #DVT ppx, SCDs * Hold AC secondary to Hematuria #Code Status: MOLST, DNR Dispo: We will continue to follow the patient. Thank you for this consultative opportunity. Visit type - Emergency Visit Emergency Visit: Yes ED Registration Date: 10/03/19 Care time: The patient presented to the Emergency Department on the above date and was hospitalized for further evaluation of their emergent condition. - New Patient This patient is new to me today: Yes Date on this admission: 10/04/19 - Critical Care Critical Care patient: Yes Total Critical Care Time (in minutes): 45 Critical Care Statement: The care of this patient involved high complexity decision making to prevent further life threatening deterioration of the patient's condition and/or to evaluate & treat vital organ system(s) failure or risk of failure. ATTENDING PHYSICIAN STATEMENT I saw and evaluated the patient. I reviewed the resident's note and discussed the case with the resident. I agree with the resident's findings and plan as documented. SUBJECTIVE: OBJECTIVE: ASSESSMENT AND PLAN:
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
--- NOTE | 2019-10-04 13:36 | PN ---
Teaching Attending Note Name of Resident: Cuate Luz ATTENDING PHYSICIAN STATEMENT I saw and evaluated the patient. I reviewed the resident's note and discussed the case with the resident. I agree with the resident's findings and plan as documented. SUBJECTIVE: 64 M, [facility] resident, Anoxic Brain Injury with chronic vegetative state (due to AM I 05/2017), S/P Tracheostomy amnd Chronic Respiratory Failure, HTN, Afib (on Eliquis), Hepatitis C, and Quadraplegia. Admitted via the ER due to hematuria and fever. Patient is unable to provide any information. Noted AFib. Rate has been controlled and hemodynamics have been stable. Intake & Output 10/01/19 10/02/19 10/03/19 10/04/19 23:59 23:59 23:59 23:59 Intake Total 1600 392 Output Total 100 1300 200 Balance 1500 -1300 192 Weight 195 lb Last Vital Signs Temp Pulse Resp BP Pulse Ox 98.4 F 113 H 14 106/80 100 10/04/19 10:26 10/04/19 13:16 10/04/19 13:16 10/04/19 13:16 10/04/19 13:16 Active Medications Acetaminophen (Tylenol -) 500 mg GT Q6H PRN PRN Reason: PAIN LEVEL 4 - 6 Albuterol/Ipratropium (Duoneb -) 1 amp NEB TID [facility] Last Admin: 10/04/19 07:43 Dose: 1 amp Documented by: Artificial Tears (Artificial Tears) 1 drop OU QID [facility] Last Admin: 10/04/19 09:37 Dose: 1 drop Documented by: Chlorhexidine Gluconate (Hibiclens For Decolonization -) 1 applic TP HS [facility] Sodium Chloride (Normal Saline -) 1,000 mls @ 42 mls/hr IV ASDIR [facility] Last Admin: 10/04/19 02:23 Dose: 42 mls/hr Documented by: Ceftazidime 2 gm/ Dextrose 100 mls @ 200 mls/hr IVPB Q8H-IV [facility]; Protocol Last Admin: 10/04/19 09:38 Dose: 200 mls/hr Documented by: Vancomycin HCl (Vancomycin (Pre-Docked)) 1,000 mg in 250 mls @ 166.667 mls/hr IVPB BID@0800,2000 [facility]; Protocol Last Admin: 06/26/20 09:53 Dose: 166.667 mls/hr Documented by: Levetiracetam (Keppra Oral Solution -) 500 mg GT BID [facility] Last Admin: 10/04/19 09:39 Dose: 500 mg Documented by: Levothyroxine Sodium (Synthroid -) 150 mcg GT DAILY@0600 [facility] Last Admin: 10/04/19 05:42 Dose: 150 mcg Documented by: Lorazepam (Ativan Injection -) 2 mg IVPUSH Q4H PRN PRN Reason: seizures Mupirocin (Bactroban Ointment (For Decolonization) -) 1 applic NS BID [facility] Stop: 10/09/19 21:59 GENERAL: Awake,non verbal trach dependent HEAD: NC/AT NECK: supple LUNGS: Vented, few scattered rhonchi HEART: IRR IRR ABDOMEN: Soft, nontender, not distended, normoactive bowel sounds, PEG LUQ with no erythema or infection signs LOWER EXTREMITIES: 2+ pulses, warm, well-perfused.+1 peripheral edema. NEUROLOGICAL: non verbal . Skin: Condylomata michael on genital area Active Medications Generic Name Dose Route Start Last Admin Trade Name Freq PRN Reason Stop Dose Admin Acetaminophen 500 mg 10/03/19 07:16 Tylenol - GT Q6H PRN PAIN LEVEL 4 - 6 Albuterol/Ipratropium 1 amp 10/03/19 07:30 10/04/19 07:43 Duoneb - NEB 1 amp TID [facility] Administration Artificial Tears 1 drop 10/03/19 10:00 10/04/19 09:37 Artificial Tears OU 1 drop QID [facility] Administration Sodium Chloride 1,000 mls @ 42 mls/hr 10/03/19 02:00 10/04/19 02:23 Normal Saline - IV 42 mls/hr ASDIR [facility] Administration Ceftazidime 2 gm/ Dextrose 100 mls @ 200 mls/hr 10/03/19 18:00 10/04/19 09:38 IVPB 200 mls/hr Q8H-IV [facility] Administration Protocol Vancomycin HCl 1,000 mg in 250 mls @ 166.667 mls/hr 10/03/19 20:00 10/04/19 09:53 Vancomycin (Pre-Docked) IVPB 166.667 mls/hr BID@0800,2000 [facility] Administration Protocol Levetiracetam 500 mg 10/03/19 10:00 10/04/19 09:39 Keppra Oral Solution - GT 500 mg BID [facility] Administration Levothyroxine Sodium 150 mcg 10/03/19 07:30 10/04/19 05:42 Synthroid - GT 150 mcg DAILY@0600 [facility] Administration Lorazepam 2 mg 10/03/19 11:11 Ativan Injection - IVPUSH Q4H PRN seizures CBC, BMP 10/03/19 10:12 10/03/19 10:12 ASSESSMENT/PLAN: AFib: rate controlled at present Chronic Respiratory Failure Hematuria UTI Vent dependent Anoxic brain injury Sacral ulcer Functional quadriplegia R.O Covid 19 AC Mode of vent ABX Meds per Cardiology Hold eliquis in term of hemturia Aspiration precautions IVF ID evaluation called Will follow Can monitor on 5S Thank you. Dr Sweeney
--- NOTE | 2019-10-04 13:44 | PN ---
Progress Note (short form) - Note Progress Note: ICU Update note Contacted by Dr. Rachel (cardiology) regarding the patient. Cardio belives that patient does not require telemetry monitoring as he has not had any arrhythmias recently. Patient is stable for transfer to [facility]; 5S. ICU not required.
[2019-10-04 13:59] LABS: N-TERMINAL BNP 991.7 pg/ml (5-125)
[2019-10-04] MEDS ORDERED: MUPIROCIN 2% TOPICAL OINTMENT FOR DECOLONIZATION NS SCH (22:00)
[2019-10-04] MEDS ORDERED: CHLORHEXIDINE GLUCONATE 4% CLEANSER FOR DECOLONIZATION TP SCH (22:00)
[2019-10-04] MEDS ORDERED: PT OWN MED DRAWER 7, Y5N ONE (22:25)
[2019-10-05] MEDS: CEFTAZIDIME PENTAHYDRATE 2 GM in DEXTROSE 5%-WATER - 100 ML IVPB SCH ×3 (02:03→17:39)
[2019-10-05] MEDS: SODIUM CHLORIDE 1,000 ML IV SCH (02:06)
[2019-10-05] MEDS: LEVOTHYROXINE NA 150 MCG TABLET GT SCH (05:43)
[2019-10-05] MEDS: ALBUTEROL SO4 2.5/IPRATROPIUM 0.5 INH SOL 3 ML VIAL.NEB. NEB SCH ×3 (08:11→20:15)
[2019-10-05] MEDS: VANCOMYCIN 1 GRAM (PRE-DOCKED) 1,000 MG/250 ML BAG IVPB SCH ×2 (09:00→20:20)
[2019-10-05] MEDS: levETIRAcetam 500 MG/5 ML ORAL SOLUTION (UNIT-DOSE CUPS) GT SCH ×2 (10:35→21:00)
[2019-10-05] MEDS: ARTIFICIAL TEARS (POLYVINYL ALCOHOL) OPTH DROPS OU SCH ×4 (10:35→21:54)
--- NOTE | 2019-10-05 11:26 | PN ---
Progress Note (short form) - Note Progress Note: resting comfortably no further fevers since admission hematuria has resolved Vital Signs Period Temp Pulse Resp BP Sys/Bhardwaj Pulse Ox Last 24 Hr 98.2 F-99.6 F 84-113 12-16 94-153/62-80 98-100 trach to vent cor-rrr lungs decreased bs at bases abd soft,nt ext no edema +SPT +GT CBC, BMP 10/03/19 10:12 10/03/19 10:12 Microbiology 10/03/19 06:00 Sputum - Endotrachea Suction/Ventilator Gram Stain - Final 10/03/19 06:00 Sputum - Endotrachea Suction/Ventilator Sputum Culture - Preliminary Pseudomonas Aeruginosa Pending Organism 10/02/19 16:50 Blood - Peripheral Venous Blood Culture - Preliminary NO GROWTH OBTAINED AFTER 48 HOURS, INCUBATION TO CON TINUE FOR 3 DAYS. 10/02/19 16:50 Blood - Peripheral Venous Blood Culture - Preliminary NO GROWTH OBTAINED AFTER 48 HOURS, INCUBATION TO CONTINUE FOR 3 DAYS. 10/02/19 16:50 Urine - Urine Clean Catch Urine Culture - Final Contaminated: Please Repeat a/p GARCIA resistatn pseudomonas- suspect colonizer- vent setting stable with no hypoxia noted fevers resolved GROSS HEMATURIA-resolved UTI R/O SEPSIS SECONDARY TO UTI-contaminated culture RLL PNEUMONIA-doubt pseudomonas pneumonia- ? CHRONIC CHOLECYSTITS CHRONIC RESP FAILURE ANOXIC ENCEPHALOPATHY AWAIT C/S CONTINUE EMPIRIC VANCOMYCIN/ CEFTAZIDIME have asked lab to drop discs for polymixin and zerbaxa/avacaz STRICT CONTACT ISOLATION- d/w ZULEMA
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
[2019-10-05] MEDS ORDERED: PT OWN MED DRAWER 7, Y5N ONE (17:00)
[2019-10-06] MEDS: CEFTAZIDIME PENTAHYDRATE 2 GM in DEXTROSE 5%-WATER - 100 ML IVPB SCH ×3 (01:51→17:19)
[2019-10-06] MEDS: SODIUM CHLORIDE 1,000 ML IV SCH ×2 (04:57→09:00)
[2019-10-06] MEDS: LEVOTHYROXINE NA 150 MCG TABLET GT SCH (05:20)
[2019-10-06] MEDS: ALBUTEROL SO4 2.5/IPRATROPIUM 0.5 INH SOL 3 ML VIAL.NEB. NEB SCH ×3 (07:35→20:51)
[2019-10-06] MEDS ORDERED: ALBUTEROL SO4 2.5/IPRATROPIUM 0.5 INH SOL 3 ML VIAL.NEB. NEB SCH (08:00)
[2019-10-06] MEDS: ARTIFICIAL TEARS (POLYVINYL ALCOHOL) OPTH DROPS OU SCH ×4 (08:59→21:00)
[2019-10-06] MEDS: VANCOMYCIN 1 GRAM (PRE-DOCKED) 1,000 MG/250 ML BAG IVPB SCH ×2 (08:59→20:02)
[2019-10-06] MEDS: levETIRAcetam 500 MG/5 ML ORAL SOLUTION (UNIT-DOSE CUPS) GT SCH ×2 (08:59→21:00)
[2019-10-06] MEDS: AMINO ACIDS 4.25%/D5W 1,000 ML IV SCH (14:09)
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
[2019-10-06] MEDS ORDERED: PT OWN MED DRAWER 7, Y5N ONE (16:58)
[2019-10-07] MEDS ORDERED: PT OWN MED DRAWER 7, Y5N ONE ×4 (00:44→17:36)
[2019-10-07] MEDS: CEFTAZIDIME PENTAHYDRATE 2 GM in DEXTROSE 5%-WATER - 100 ML IVPB SCH ×3 (01:08→18:12)
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
[2019-10-07] MEDS: LEVOTHYROXINE NA 150 MCG TABLET GT SCH (05:16)
[2019-10-07] MEDS: ALBUTEROL SO4 2.5/IPRATROPIUM 0.5 INH SOL 3 ML VIAL.NEB. NEB SCH ×3 (07:30→20:37)
[2019-10-07 08:53] LABS: BASO % 0.8 % (0-2.0); HEMATOCRIT 25.3 % (35.4-49); LYMPH % 18.2 % (8-40); MCH 27.1 pg (25.7-33.7); MCHC 31.5 g/dl (32.0-35.9); MEAN PLT VOLUME 9.7 fl (7.5-11.1); MONO % 8.5 % (3.8-10.2); NEUT % 65.5 % (42.8-82.8); PLATELET COUNT 206 K/MM3 (134-434); RBC 2.94 M/mm3 (4.00-5.60); RDW 16.6 % (11.9-15.9); WHITE BLOOD COUNT 4.8 K/mm3 (4.0-10.0)
[2019-10-07 08:57] LABS: INR 1.13 (0.83-1.09); PROTHROMBIN TIME (PATIENT) 13.3 SEC (9.7-13.0)
[2019-10-07] MEDS: ARTIFICIAL TEARS (POLYVINYL ALCOHOL) OPTH DROPS OU SCH ×4 (09:11→21:31)
[2019-10-07] MEDS: levETIRAcetam 500 MG/5 ML ORAL SOLUTION (UNIT-DOSE CUPS) GT SCH ×2 (09:11→21:31)
[2019-10-07] MEDS: VANCOMYCIN 1 GRAM (PRE-DOCKED) 1,000 MG/250 ML BAG IVPB SCH ×2 (09:11→20:55)
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
[2019-10-07 09:26] LABS: BILIRUBIN,TOTAL 0.4 mg/dL (0.2-1); CALCIUM 8.6 mg/dL (8.5-10.1); CREATININE 0.5 mg/dL (0.55-1.3); TOT PROT 6.2 g/dl (6.4-8.2)
[2019-10-07 09:31] LABS: BLOOD UREA NITROGEN 11.5 mg/dL (7-18)
[2019-10-07 09:33] LABS: POTASSIUM 2.8 mmol/L (3.5-5.1)
[2019-10-07] MEDS ORDERED: POTASSIUM CHLORIDE ORAL LIQUID 20 MEQ/15 ML GT ONE (12:15)
[2019-10-07] MEDS: AMINO ACIDS 4.25%/D5W 1,000 ML IV SCH (14:55)
[2019-10-07] MEDS ORDERED: POTASSIUM CHLORIDE ORAL LIQUID 20 MEQ/15 ML PO ONE (15:45)
--- NOTE | 2019-10-07 15:48 | PN ---
Progress Note, Physician History of Present Illness: Comfortable All f/u noted Afebrile Dr. Rivero requesting HIDA scan - Current Medication List Current Medications: Active Medications Acetaminophen (Tylenol -) 500 mg GT Q6H PRN PRN Reason: PAIN LEVEL 4 - 6 Albuterol/Ipratropium (Duoneb -) 1 amp NEB RTID [facility] Last Admin: 10/07/19 14:45 Dose: 1 amp Documented by: Artificial Tears (Artificial Tears) 1 drop OU QID [facility] Last Admin: 10/07/19 14:56 Dose: 1 drop Documented by: Ceftazidime 2 gm/ Dextrose 100 mls @ 200 mls/hr IVPB Q8H-IV [facility]; Protocol Last Admin: 10/07/19 11:33 Dose: 200 mls/hr Documented by: Vancomycin HCl (Vancomycin (Pre-Docked)) 1,000 mg in 250 mls @ 166.667 mls/hr IVPB BID@0800,2000 [facility]; Protocol Last Admin: 10/07/19 09:11 Dose: 166.667 mls/hr Documented by: Amino Acids (Clinimix -) 1,000 mls @ 42 mls/hr IV Q24H [facility] Last Admin: 10/07/19 14:55 Dose: 42 mls/hr Documented by: Levetiracetam (Keppra Oral Solution -) 500 mg GT BID [facility] Last Admin: 10/07/19 09:11 Dose: 500 mg Documented by: Levothyroxine Sodium (Synthroid -) 150 mcg GT DAILY@0600 [facility] Last Admin: 10/07/19 05:16 Dose: 150 mcg Documented by: Lorazepam (Ativan Injection -) 2 mg IVPUSH Q4H PRN PRN Reason: seizures Potassium Chloride (Potassium Chloride Oral Liquid) 40 meq PO ONCE ONE Stop: 10/07/19 15:46 - Objective Vital Signs: Vital Signs Temperature 98 F 10/07/19 11:01 Pulse Rate 79 10/07/19 11:01 Respiratory Rate 14 10/07/19 15:29 Blood Pressure 110/68 10/07/19 11:01 O2 Sat by Pulse Oximetry (%) 100 10/07/19 15:29 Constitutional: Yes: No Distress Neck: Yes: Other (s/p tach) Cardiovascular: Yes: Pulse Irregular Respiratory: Yes: Diminished Gastrointestinal: Yes: Soft Neurological: Yes: Pre-Existing Deficit (non verbal), Other Labs: CBC, BMP 10/07/19 07:20 10/07/19 07:20 INR, PTT INR 1.13 (0.83-1.09) H 10/07/19 07:20 Problem List - Problems (1) Acute calculous cholecystitis Code(s): K80.00 - CALCULUS OF GALLBLADDER W ACUTE CHOLECYST W/O OBSTRUCTION (2) Encounter for screening laboratory testing for COVID-19 virus Code(s): Z11.59 - ENCOUNTER FOR SCREENING FOR OTHER VIRAL DISEASES (3) Hematuria Code(s): R31.9 - HEMATURIA, UNSPECIFIED (4) UTI (urinary tract infection) Code(s): N39.0 - URINARY TRACT INFECTION, SITE NOT SPECIFIED (5) Ventilator associated pneumonia Code(s): J95.851 - VENTILATOR ASSOCIATED PNEUMONIA (6) Anoxic brain injury Code(s): G93.1 - ANOXIC BRAIN DAMAGE, NOT ELSEWHERE CLASSIFIED (7) Chronic respiratory failure Code(s): J96.10 - CHRONIC RESPIRATORY FAILURE, UNSP W HYPOXIA OR HYPERCAPNIA Qualifiers: Respiratory failure complication: unspecified whether with hypoxia or hypercapnia Qualified Code(s): J96.10 - Chronic respiratory failure, unspecified whether with hypoxia or hypercapnia (8) Condylomata acuminata in male Code(s): A63.0 - ANOGENITAL (VENEREAL) WARTS Assessment/Plan Abx Fix electrolytes and monitor Hida Scan D/w RN also Will follow
--- NOTE | 2019-10-07 23:20 | PN ---
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 NOTED - Current Medication List Current Medications: Active Medications Acetaminophen (Tylenol -) 500 mg GT Q6H PRN PRN Reason: PAIN LEVEL 4 - 6 Albuterol/Ipratropium (Duoneb -) 1 amp NEB RTID [facility] Last Admin: 10/07/19 20:37 Dose: 1 amp Documented by: Artificial Tears (Artificial Tears) 1 drop OU QID [facility] Last Admin: 10/07/19 21:31 Dose: 1 drop Documented by: Ceftazidime 2 gm/ Dextrose 100 mls @ 200 mls/hr IVPB Q8H-IV [facility]; Protocol Last Admin: 10/07/19 18:12 Dose: 200 mls/hr Documented by: Vancomycin HCl (Vancomycin (Pre-Docked)) 1,000 mg in 250 mls @ 166.667 mls/hr IVPB BID@0800,2000 [facility]; Protocol Last Admin: 10/07/19 20:55 Dose: 166.667 mls/hr Documented by: Amino Acids (Clinimix -) 1,000 mls @ 42 mls/hr IV Q24H [facility] Last Admin: 10/07/19 14:55 Dose: 42 mls/hr Documented by: Levetiracetam (Keppra Oral Solution -) 500 mg GT BID [facility] Last Admin: 10/07/19 21:31 Dose: 500 mg Documented by: Levothyroxine Sodium (Synthroid -) 150 mcg GT DAILY@0600 [facility] Last Admin: 10/07/19 05:16 Dose: 150 mcg Documented by: Lorazepam (Ativan Injection -) 2 mg IVPUSH Q4H PRN PRN Reason: seizures - Objective Vital Signs: Vital Signs Temperature 98.6 F 10/07/19 18:13 Pulse Rate 79 10/07/19 18:13 Respiratory Rate 13 10/07/19 19:30 Blood Pressure 110/70 10/07/19 18:13 O2 Sat by Pulse Oximetry (%) 99 10/07/19 21:00 Constitutional: Yes: No Distress Cardiovascular: Yes: Regular Rate and Rhythm, S1, S2 Respiratory: Yes: CTA Bilaterally Gastrointestinal: Yes: Normal Bowel Sounds, Soft. No: Tenderness Labs: CBC, BMP 10/07/19 07:20 10/07/19 07:20 INR, PTT INR 1.13 (0.83-1.09) H 10/07/19 07:20 Assessment/Plan GROSS HEMATURIA UTI R/O SEPSIS SECONDARY TO UTI RLL PNEUMONIA ? CHRONIC CHOLECYSTITS CHRONIC RESP FAILURE ANOXIC ENCEPHALOPATHY CONTINUE VANCOMYCIN/ CEFTAZIDIME CONTACT PRECAUTIONS
[2019-10-08] MEDS ORDERED: PT OWN MED DRAWER 7, Y5N ONE ×2 (01:33→09:52)
[2019-10-08] MEDS: CEFTAZIDIME PENTAHYDRATE 2 GM in DEXTROSE 5%-WATER - 100 ML IVPB SCH ×3 (01:37→18:40)
[2019-10-08] MEDS: LEVOTHYROXINE NA 150 MCG TABLET GT SCH (05:29)
[2019-10-08] MEDS: ALBUTEROL SO4 2.5/IPRATROPIUM 0.5 INH SOL 3 ML VIAL.NEB. NEB SCH ×3 (08:30→20:40)
[2019-10-08] MEDS: ARTIFICIAL TEARS (POLYVINYL ALCOHOL) OPTH DROPS OU SCH ×4 (10:03→21:01)
[2019-10-08] MEDS: VANCOMYCIN 1 GRAM (PRE-DOCKED) 1,000 MG/250 ML BAG IVPB SCH ×2 (10:03→20:27)
[2019-10-08] MEDS: levETIRAcetam 500 MG/5 ML ORAL SOLUTION (UNIT-DOSE CUPS) GT SCH ×2 (10:03→21:00)
[2019-10-08 12:32] LABS: BASO % 0.5 % (0-2.0); EOS % 6.3 % (0-4.5); HEMATOCRIT 25.2 % (35.4-49); HEMOGLOBIN 7.8 GM/dL (11.7-16.9); LYMPH % 22.8 % (8-40); MCH 27.6 pg (25.7-33.7); MCHC 30.9 g/dl (32.0-35.9); MEAN CELL VOLUME 89.3 fl (80-96); MEAN PLT VOLUME 9.6 fl (7.5-11.1); MONO % 7.8 % (3.8-10.2); NEUT % 62.6 % (42.8-82.8); PLATELET COUNT 208 K/MM3 (134-434); RBC 2.82 M/mm3 (4.00-5.60); RDW 17.3 % (11.9-15.9); WHITE BLOOD COUNT 4.4 K/mm3 (4.0-10.0)
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
[2019-10-08 12:56] LABS: ALBUMIN 1.9 g/dl (3.4-5.0); BILIRUBIN,TOTAL 0.2 mg/dL (0.2-1); BLOOD UREA NITROGEN 10.6 mg/dL (7-18); CALCIUM 8.2 mg/dL (8.5-10.1); CREATININE 0.6 mg/dL (0.55-1.3); POTASSIUM 3.3 mmol/L (3.5-5.1); TOT PROT 6.1 g/dl (6.4-8.2)
[2019-10-08] MEDS ORDERED: KCL 10 MEQ IVPB 10 MEQ/100 ML INFUS.BAG IVPB SCH (14:15)
[2019-10-08] MEDS: POTASSIUM CHLORIDE 20 MEQ in AMINO ACIDS 4.25%/D5W 1,000 ML IVPB SCH (16:10)
--- NOTE | 2019-10-08 22:40 | PN ---
Progress Note, Physician History of Present Illness: NOT VERBALLY RESPONSIVE BREATHING NON-LABORED AFEBRILE WBC WNL RESISTANT PSEUDOMONAS IN SPUTUM NOTED - Current Medication List Current Medications: Active Medications Acetaminophen (Tylenol -) 500 mg GT Q6H PRN PRN Reason: PAIN LEVEL 4 - 6 Albuterol/Ipratropium (Duoneb -) 1 amp NEB RTID [facility] Last Admin: 10/08/19 20:40 Dose: 1 amp Documented by: Artificial Tears (Artificial Tears) 1 drop OU QID [facility] Last Admin: 10/08/19 21:01 Dose: 1 drop Documented by: Ceftazidime 2 gm/ Dextrose 100 mls @ 200 mls/hr IVPB Q8H-IV [facility]; Protocol Last Admin: 10/08/19 18:40 Dose: 200 mls/hr Documented by: Vancomycin HCl (Vancomycin (Pre-Docked)) 1,000 mg in 250 mls @ 166.667 mls/hr IVPB BID@0800,2000 [facility]; Protocol Last Admin: 10/08/19 20:27 Dose: 166.667 mls/hr Documented by: Potassium Chloride 20 meq/ (Amino Acids) 1,010 mls @ 83 mls/hr IVPB Q12H [facility] Last Admin: 10/08/19 16:10 Dose: 83 mls/hr Documented by: Levetiracetam (Keppra Oral Solution -) 500 mg GT BID [facility] Last Admin: 10/08/19 21:00 Dose: 500 mg Documented by: Levothyroxine Sodium (Synthroid -) 150 mcg GT DAILY@0600 [facility] Last Admin: 10/08/19 05:29 Dose: 150 mcg Documented by: Lorazepam (Ativan Injection -) 2 mg IVPUSH Q4H PRN PRN Reason: seizures Last Admin: 10/08/19 21:00 Dose: 2 mg Documented by: - Objective Vital Signs: Vital Signs Temperature 98.5 F 10/08/19 20:27 Pulse Rate 79 10/08/19 20:27 Respiratory Rate 12 10/08/19 20:30 Blood Pressure 101/63 10/08/19 20:27 O2 Sat by Pulse Oximetry (%) 100 10/08/19 20:30 Constitutional: Yes: No Distress Eyes: Yes: Conjunctiva Clear Cardiovascular: Yes: Regular Rate and Rhythm, S1, S2 Respiratory: Yes: Mechanically Ventilated Gastrointestinal: Yes: Normal Bowel Sounds, Soft Edema: Yes Labs: CBC, BMP 10/08/19 12:00 10/08/19 12:00 INR, PTT INR 1.13 (0.83-1.09) H 10/07/19 07:20 Assessment/Plan GROSS HEMATURIA UTI R/O SEPSIS SECONDARY TO UTI RLL PNEUMONIA ? CHRONIC CHOLECYSTITS CHRONIC RESP FAILURE ANOXIC ENCEPHALOPATHY CONTINUE VANCOMYCIN/ CEFTAZIDIME CONTACT PRECAUTIONS
[2019-10-09] MEDS: CEFTAZIDIME PENTAHYDRATE 2 GM in DEXTROSE 5%-WATER - 100 ML IVPB SCH ×3 (02:30→18:08)
[2019-10-09] MEDS: POTASSIUM CHLORIDE 20 MEQ in AMINO ACIDS 4.25%/D5W 1,000 ML IVPB SCH ×2 (02:57→14:55)
[2019-10-09] MEDS: LEVOTHYROXINE NA 150 MCG TABLET GT SCH (05:14)
[2019-10-09] MEDS: ALBUTEROL SO4 2.5/IPRATROPIUM 0.5 INH SOL 3 ML VIAL.NEB. NEB SCH ×3 (07:40→20:35)
[2019-10-09] MEDS: ARTIFICIAL TEARS (POLYVINYL ALCOHOL) OPTH DROPS OU SCH ×2 (09:02→14:17)
[2019-10-09] MEDS ORDERED: morphine SULFATE 4 MG/ML VIAL IVPUSH ONE (10:19)
[2019-10-09] MEDS ORDERED: morphine CARPU-JECT 4 MG/1 ML DISP.SYRIN IVPUSH ONE (10:19)
[2019-10-09] MEDS: VANCOMYCIN 1 GRAM (PRE-DOCKED) 1,000 MG/250 ML BAG IVPB SCH (12:02)
[2019-10-09] MEDS: levETIRAcetam 500 MG/5 ML ORAL SOLUTION (UNIT-DOSE CUPS) GT SCH ×2 (12:02→21:44)
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
--- NOTE | 2019-10-09 12:26 | PN ---
Progress Note, Physician History of Present Illness: NOT VERBALLY RESPONSIVE BREATHING NON-LABORED AFEBRILE WBC WNL RESISTANT PSEUDOMONAS IN SPUTUM NOTED HIDA DONE, RESULTS PENDING - Current Medication List Current Medications: Active Medications Acetaminophen (Tylenol -) 500 mg GT Q6H PRN PRN Reason: PAIN LEVEL 4 - 6 Albuterol/Ipratropium (Duoneb -) 1 amp NEB RTID [facility] Last Admin: 10/09/19 07:40 Dose: 1 amp Documented by: Artificial Tears (Artificial Tears) 1 drop OU QID [facility] Last Admin: 10/09/19 09:02 Dose: 1 drop Documented by: Ceftazidime 2 gm/ Dextrose 100 mls @ 200 mls/hr IVPB Q8H-IV [facility]; Protocol Last Admin: 10/09/19 12:03 Dose: 200 mls/hr Documented by: Vancomycin HCl (Vancomycin (Pre-Docked)) 1,000 mg in 250 mls @ 166.667 mls/hr IVPB BID@0800,2000 [facility]; Protocol Last Admin: 10/09/19 12:02 Dose: 166.667 mls/hr Documented by: Potassium Chloride 20 meq/ (Amino Acids) 1,010 mls @ 83 mls/hr IVPB Q12H [facility] Last Admin: 10/09/19 02:57 Dose: 83 mls/hr Documented by: Levetiracetam (Keppra Oral Solution -) 500 mg GT BID [facility] Last Admin: 10/09/19 12:02 Dose: 500 mg Documented by: Levothyroxine Sodium (Synthroid -) 150 mcg GT DAILY@0600 [facility] Last Admin: 10/09/19 05:14 Dose: 150 mcg Documented by: Lorazepam (Ativan Injection -) 2 mg IVPUSH Q4H PRN PRN Reason: seizures Last Admin: 10/08/19 21:00 Dose: 2 mg Documented by: - Objective Vital Signs: Vital Signs Temperature 98.3 F 10/09/19 09:35 Pulse Rate 90 10/09/19 09:35 Respiratory Rate 18 10/09/19 09:35 Blood Pressure 120/70 10/09/19 09:35 O2 Sat by Pulse Oximetry (%) 100 10/09/19 09:00 Constitutional: Yes: No Distress, Obese Eyes: Yes: Conjunctiva Clear Cardiovascular: Yes: Regular Rate and Rhythm, S1, S2 Respiratory: Yes: CTA Bilaterally Gastrointestinal: Yes: Normal Bowel Sounds, Soft. No: Tenderness Edema: Yes Labs: CBC, BMP 10/08/19 12:00 10/08/19 12:00 INR, PTT INR 1.13 (0.83-1.09) H 10/07/19 07:20 Assessment/Plan GROSS HEMATURIA UTI R/O SEPSIS SECONDARY TO UTI RLL PNEUMONIA ? CHRONIC CHOLECYSTITS CHRONIC RESP FAILURE ANOXIC ENCEPHALOPATHY CONTINUE VANCOMYCIN/ CEFTAZIDIME CONTACT PRECAUTIONS
[2019-10-09 14:01] LABS: BASO % 0.5 % (0-2.0); EOS % 6.6 % (0-4.5); HEMATOCRIT 27.2 % (35.4-49); HEMOGLOBIN 8.5 GM/dL (11.7-16.9); LYMPH % 26.2 % (8-40); MCH 27.5 pg (25.7-33.7); MCHC 31.3 g/dl (32.0-35.9); MEAN CELL VOLUME 87.8 fl (80-96); MEAN PLT VOLUME 9.8 fl (7.5-11.1); MONO % 8.3 % (3.8-10.2); NEUT % 58.4 % (42.8-82.8); PLATELET COUNT 218 K/MM3 (134-434); RDW 17.3 % (11.9-15.9); WHITE BLOOD COUNT 4.1 K/mm3 (4.0-10.0)
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
[2019-10-09 14:42] LABS: ALBUMIN 2.2 g/dl (3.4-5.0); BILIRUBIN,TOTAL 0.3 mg/dL (0.2-1); BLOOD UREA NITROGEN 13.3 mg/dL (7-18); CALCIUM 8.9 mg/dL (8.5-10.1); CREATININE 0.5 mg/dL (0.55-1.3); MAGNESIUM 2.1 mg/dL (1.8-2.4); POTASSIUM 3.7 mmol/L (3.5-5.1); TOT PROT 6.6 g/dl (6.4-8.2)
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
[2019-10-09] MEDS ORDERED: PT OWN MED DRAWER 7, Y5N ONE ×2 (17:59→18:00)
[2019-10-09] MEDS: MINERAL OIL/PETROLATUM,WHITE 3.5 GM TUBE OU SCH (18:38)
[2019-10-10] MEDS ORDERED: VANCOMYCIN 1 GRAM (PRE-DOCKED) 1,000 MG/250 ML BAG IVPB SCH
[2019-10-10] MEDS ORDERED: PT OWN MED DRAWER 7, Y5N ONE ×3 (00:10→17:18)
[2019-10-10] MEDS: VANCOMYCIN 1 GRAM (PRE-DOCKED) 1,000 MG/250 ML BAG IVPB SCH ×2 (00:19→12:50)
[2019-10-10] MEDS: MINERAL OIL/PETROLATUM,WHITE 3.5 GM TUBE OU SCH ×4 (00:21→17:23)
[2019-10-10] MEDS: POTASSIUM CHLORIDE 20 MEQ in AMINO ACIDS 4.25%/D5W 1,000 ML IVPB SCH (01:02)
[2019-10-10] MEDS: CEFTAZIDIME PENTAHYDRATE 2 GM in DEXTROSE 5%-WATER - 100 ML IVPB SCH ×3 (01:02→17:22)
[2019-10-10] MEDS: LEVOTHYROXINE NA 150 MCG TABLET GT SCH (06:03)
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
[2019-10-10] MEDS: ALBUTEROL SO4 2.5/IPRATROPIUM 0.5 INH SOL 3 ML VIAL.NEB. NEB SCH ×3 (09:45→20:10)
[2019-10-10] MEDS: levETIRAcetam 500 MG/5 ML ORAL SOLUTION (UNIT-DOSE CUPS) GT SCH ×2 (10:07→21:14)
--- NOTE | 2019-10-10 11:03 | PN ---
Progress Note (short form) - Note Progress Note: PULMONARY Febrile overnight. Vented on volume assist control. Pt unresponsive. Vital Signs Period Temp Pulse Resp BP Sys/Bhardwaj Pulse Ox Last 24 Hr 97.4 F-103.5 F 77-97 12-20 93-122/51-76 100-100 Gen: vented, unresponsive Heart: RRR Lung: scattered rhonchi Abd: soft, nontender Ext: no edema CBC, BMP 10/09/19 13:15 10/09/19 13:15 Active Medications Acetaminophen (Tylenol -) 500 mg GT Q6H PRN PRN Reason: PAIN LEVEL 4 - 6 Last Admin: 10/09/19 21:43 Dose: 500 mg Documented by: Albuterol/Ipratropium (Duoneb -) 1 amp NEB RTID [facility] Last Admin: 10/09/19 20:35 Dose: 1 amp Documented by: Artificial Tears (Artificial Tears Ointment -) 1 applic OU Q6H [facility]ESUS Last Admin: 10/10/19 06:03 Dose: 1 applic Documented by: Ceftazidime 2 gm/ Dextrose 100 mls @ 200 mls/hr IVPB Q8H-IV JESUS; Protocol Last Admin: 10/10/19 10:07 Dose: 200 mls/hr Documented by: Potassium Chloride 20 meq/ (Amino Acids) 1,010 mls @ 83 mls/hr IVPB Q12H [facility] Last Admin: 10/10/19 01:02 Dose: Not Given Documented by: Vancomycin HCl (Vancomycin (Pre-Docked)) 1,000 mg in 250 mls @ 166.667 mls/hr IVPB Q12H [facility]; Protocol Last Admin: 10/10/19 00:19 Dose: 166.667 mls/hr Documented by: Levetiracetam (Keppra Oral Solution -) 500 mg GT BID [facility] Last Admin: 10/10/19 10:07 Dose: 500 mg Documented by: Levothyroxine Sodium (Synthroid -) 150 mcg GT DAILY@0600 [facility] Last Admin: 10/10/19 06:03 Dose: 150 mcg Documented by: A/P Chronic Respiratory Failure Pneumonia UTI Sacral Decubitus Ulcer Atrial Fibrillation Anoxic Brain Injury Functional Quadriplegia - continue antibiotics per ID - inhaled brochodilators - continue volume assist control - poor candidate for weaning due to poor mental status - enteral feeds - rate control - DVT prophylaxis
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
[2019-10-10] MEDS ORDERED: POTASSIUM CHLORIDE 20 MEQ in AMINO ACIDS 4.25%/D5W 1,000 ML IVPB SCH (12:42)
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
[2019-10-10] MEDS: oxyCODONE HCL 5 MG TABLET PO SCH ×3 (13:17→21:14)
--- NOTE | 2019-10-10 15:52 | ECHO ---
Name: TC WEEKS Exam:Adult Echocardiogram Study Date: 10/10/2019 03:02 PM Age: 64 yrs Reason For Study: Systolic CHF; hypotension Height: 71 in Weight: 194 lb BSA: 2.1 m2 MMode/2D Measurements & Calculations IVSd: 0.87 cm Ao root diam: 2.6 cm LVIDd: 4.4 cm LA dimension: 3.9 cm LVIDs: 3.3 cm LVPWd: 0.77 cm EDV(Teich): 88.6 ml LVOT diam: 2.0 cm ESV(Teich): 44.4 ml LVLd ap4: 5.5 cm SV(MOD-sp4): 19.0 ml EDV(MOD-sp4): 43.0 ml LVLs ap4: 5.7 cm ESV(MOD-sp4): 24.0 ml LAV (MOD-bp): 42.0 ml TAPSE: 1.3 cm RV S Rajiv: 14.4 cm/sec Doppler Measurements & Calculations Ao V2 max: 124.9 cm/sec LV V1 max P.2 mmHg Ao max P.2 mmHg LV V1 mean P.5 mmHg Ao V2 mean: 92.4 cm/sec LV V1 max: 89.3 cm/sec Ao mean P.8 mmHg LV V1 mean: 56.5 cm/sec Ao V2 VTI: 21.8 cm LV V1 VTI: 12.9 cm ARCELIA(I,D): 1.9 cm2 ARCELIA(V,D): 2.2 cm2 SV(LVOT): 40.6 ml PA V2 max: 95.0 cm/sec PA max P.6 mmHg Med Peak E' Rajiv: 5.2 cm/sec Lat Peak E' Rajiv: 12.6 cm/sec Tech Comments TDS. Patient intubated. Procedure A complete two-dimensional transthoracic echocardiogram was performed (2D, M-mode, Doppler and color flow Doppler). The study was technically difficult with many images being suboptimal in quality. Left Ventricle The left ventricle is normal in size. Left ventricular systolic function is moderately reduced. Eject ion Fraction = 35-40%. There is moderate global hypokinesis of the left ventricle. Right Ventricle The right ventricle is normal in size and function. Atria Normal left and right atrial size and function. Mitral Valve There is no mitral regurgitation noted. Tricuspid Valve There is trace tricuspid regurgitation. Aortic Valve No hemodynamically significant valvular aortic stenosis. No aortic regurgitation is present. Pulmonic Valve There is no pulmonic valvular regurgitation. Great Vessels The aortic root is normal size. Pericardium/Pleura There is no pericardial effusion. Interpretation Summary The study was technically difficult with many images being suboptimal in quality. Left ventricular systolic function is moderately reduced. The right ventricle is normal in size and function. There is trace tricuspid regurgitation. MD Zaid Zambrano 10/10/2019 03:51 PM
--- NOTE | 2019-10-10 23:45 | PN ---
Progress Note, Physician - Current Medication List Current Medications: Active Medications Acetaminophen (Tylenol -) 500 mg GT Q6H PRN PRN Reason: PAIN LEVEL 4 - 6 Last Admin: 10/09/19 21:43 Dose: 500 mg Documented by: Artificial Tears (Artificial Tears Ointment -) 1 applic OU Q6H JESUS Last Admin: 10/10/19 17:23 Dose: 1 applic Documented by: Ceftazidime 2 gm/ Dextrose 100 mls @ 200 mls/hr IVPB Q8H-IV JESUS; Protocol Last Admin: 10/10/19 17:22 Dose: 200 mls/hr Documented by: Vancomycin HCl (Vancomycin (Pre-Docked)) 1,000 mg in 250 mls @ 166.667 mls/hr IVPB Q12H JESUS; Protocol Last Admin: 10/10/19 12:50 Dose: 166.667 mls/hr Documented by: Levetiracetam (Keppra Oral Solution -) 500 mg GT BID [facility] Last Admin: 10/10/19 21:14 Dose: 500 mg Documented by: Levothyroxine Sodium (Synthroid -) 150 mcg GT DAILY@0600 [facility] Last Admin: 10/10/19 06:03 Dose: 150 mcg Documented by: Oxycodone HCl (Roxicodone -) 5 mg PO Q4H [facility] Last Admin: 10/10/19 21:14 Dose: 5 mg Documented by: - Objective Vital Signs: Vital Signs Temperature 98.1 F 10/10/19 20:48 Pulse Rate 104 H 10/10/19 20:48 Respiratory Rate 12 10/10/19 21:00 Blood Pressure 103/68 10/10/19 20:48 O2 Sat by Pulse Oximetry (%) 100 10/10/19 21:00 Labs: CBC, BMP 10/09/19 13:15 10/09/19 13:15 INR, PTT INR 1.13 (0.83-1.09) H 10/07/19 07:20
[2019-10-11] MEDS: oxyCODONE HCL 5 MG TABLET PO SCH ×6 (00:41→21:06)
[2019-10-11] MEDS: MINERAL OIL/PETROLATUM,WHITE 3.5 GM TUBE OU SCH ×5 (00:41→23:11)
[2019-10-11] MEDS: VANCOMYCIN 1 GRAM (PRE-DOCKED) 1,000 MG/250 ML BAG IVPB SCH ×3 (00:41→23:11)
[2019-10-11] MEDS ORDERED: PT OWN MED DRAWER 7, Y5N ONE ×2 (02:30→17:08)
[2019-10-11] MEDS: CEFTAZIDIME PENTAHYDRATE 2 GM in DEXTROSE 5%-WATER - 100 ML IVPB SCH ×3 (02:37→17:24)
[2019-10-11] MEDS: LEVOTHYROXINE NA 150 MCG TABLET GT SCH (05:17)
--- NOTE | 2019-10-11 07:35 | PN ---
Progress Note, Physician History of Present Illness: PULMONARY NO CHANGE UNRESPONSIVE ON VENT SUPPORT AC MODE - Current Medication List Current Medications: Active Medications Acetaminophen (Tylenol -) 500 mg GT Q6H PRN PRN Reason: PAIN LEVEL 4 - 6 Last Admin: 10/09/19 21:43 Dose: 500 mg Documented by: Artificial Tears (Artificial Tears Ointment -) 1 applic OU Q6H JESUS Last Admin: 10/11/19 05:17 Dose: 1 applic Documented by: Ceftazidime 2 gm/ Dextrose 100 mls @ 200 mls/hr IVPB Q8H-IV JESUS; Protocol Last Admin: 10/11/19 02:37 Dose: 200 mls/hr Documented by: Vancomycin HCl (Vancomycin (Pre-Docked)) 1,000 mg in 250 mls @ 166.667 mls/hr IVPB Q12H JESUS; Protocol Last Admin: 10/11/19 00:41 Dose: 166.667 mls/hr Documented by: Levetiracetam (Keppra Oral Solution -) 500 mg GT BID JESUS Last Admin: 10/10/19 21:14 Dose: 500 mg Documented by: Levothyroxine Sodium (Synthroid -) 150 mcg GT DAILY@0600 JESUS Last Admin: 10/11/19 05:17 Dose: 150 mcg Documented by: Oxycodone HCl (Roxicodone -) 5 mg PO Q4H JESUS Last Admin: 10/11/19 05:17 Dose: 5 mg Documented by: - Objective Vital Signs: Vital Signs Temperature 97.2 F L 10/11/19 05:59 Pulse Rate 112 H 10/11/19 05:59 Respiratory Rate 16 10/11/19 05:59 Blood Pressure 121/80 10/11/19 05:59 O2 Sat by Pulse Oximetry (%) 100 10/11/19 04:20 Constitutional: Yes: Well Nourished, Other (UNRESPONSIVE) Eyes: Yes: WNL HENT: Yes: WNL Neck: Yes: Supple (TRACH) Cardiovascular: Yes: Pulse Irregular, S1, S2 Respiratory: Yes: Rhonchi (FEW SCATTERED RHONCHI) Gastrointestinal: Yes: Normal Bowel Sounds Extremities: Yes: WNL Edema: No Labs: CBC, BMP 10/09/19 13:15 Problem List - Problems (1) Encounter for screening laboratory testing for COVID-19 virus Code(s): Z11.59 - ENCOUNTER FOR SCREENING FOR OTHER VIRAL DISEASES (2) Anoxic brain injury Code(s): G93.1 - ANOXIC BRAIN DAMAGE, NOT ELSEWHERE CLASSIFIED (3) Atrial fibrillation Code(s): I48.91 - UNSPECIFIED ATRIAL FIBRILLATION Qualifiers: Atrial fibrillation type: persistent (4) Chronic respiratory failure Code(s): J96.10 - CHRONIC RESPIRATORY FAILURE, UNSP W HYPOXIA OR HYPERCAPNIA Qualifiers: Respiratory failure complication: unspecified whether with hypoxia or hypercapnia Qualified Code(s): J96.10 - Chronic respiratory failure, unspecified whether with hypoxia or hypercapnia (5) Quadriplegia, functional Code(s): R53.2 - FUNCTIONAL QUADRIPLEGIA (6) Tracheostomy tube present Code(s): Z93.0 - TRACHEOSTOMY STATUS Assessment/Plan ASSESSMENT/PLAN: AFib: rate controlled at present Chronic Respiratory Failure Hematuria UTI Vent dependent Anoxic brain injury Sacral ulcer Functional quadriplegia R.O Covid 19 NEGATIVE Acute Cholecystitis AC Mode of vent ABX Meds per Cardiology Aspiration precautions IVF DR ALEXANDER
[2019-10-11] MEDS: levETIRAcetam 500 MG/5 ML ORAL SOLUTION (UNIT-DOSE CUPS) GT SCH ×2 (09:59→21:06)
--- NOTE | 2019-10-11 10:11 | PN ---
Progress Note, Physician History of Present Illness: Comfortable All f/u noted Afebrile today - Current Medication List Current Medications: Active Medications Acetaminophen (Tylenol -) 500 mg GT Q6H PRN PRN Reason: PAIN LEVEL 4 - 6 Last Admin: 10/09/19 21:43 Dose: 500 mg Documented by: Artificial Tears (Artificial Tears Ointment -) 1 applic OU Q6H JESUS Last Admin: 10/11/19 05:17 Dose: 1 applic Documented by: Ceftazidime 2 gm/ Dextrose 100 mls @ 200 mls/hr IVPB Q8H-IV JESUS; Protocol Last Admin: 10/11/19 09:59 Dose: 200 mls/hr Documented by: Vancomycin HCl (Vancomycin (Pre-Docked)) 1,000 mg in 250 mls @ 166.667 mls/hr IVPB Q12H JESUS; Protocol Last Admin: 10/11/19 00:41 Dose: 166.667 mls/hr Documented by: Levetiracetam (Keppra Oral Solution -) 500 mg GT BID [facility] Last Admin: 10/11/19 09:59 Dose: 500 mg Documented by: Levothyroxine Sodium (Synthroid -) 150 mcg GT DAILY@0600 [facility] Last Admin: 10/11/19 05:17 Dose: 150 mcg Documented by: Oxycodone HCl (Roxicodone -) 5 mg PO Q4H JESUS Last Admin: 10/11/19 09:59 Dose: 5 mg Documented by: - Objective Vital Signs: Vital Signs Temperature 97.2 F L 10/11/19 05:59 Pulse Rate 70 10/11/19 08:00 Respiratory Rate 14 10/11/19 08:00 Blood Pressure 121/80 10/11/19 05:59 O2 Sat by Pulse Oximetry (%) 100 10/11/19 08:00 Constitutional: Yes: No Distress Neck: Yes: Other (s/p trach) Cardiovascular: Yes: Regular Rate and Rhythm Respiratory: Yes: Diminished Gastrointestinal: Yes: Soft Wound/Incision: Yes: Other (heel ulcer) Neurological: Yes: Unsteady Gait Labs: CBC, BMP 10/09/19 13:15 10/09/19 13:15 INR, PTT INR 1.13 (0.83-1.09) H 10/07/19 07:20 Problem List - Problems (1) Acute calculous cholecystitis Problems reviewed: Yes Code(s): K80.00 - CALCULUS OF GALLBLADDER W ACUTE CHOLECYST W/O OBSTRUCTION (2) Encounter for screening laboratory testing for COVID-19 virus Code(s): Z11.59 - ENCOUNTER FOR SCREENING FOR OTHER VIRAL DISEASES (3) Hematuria Problems reviewed: Yes Code(s): R31.9 - HEMATURIA, UNSPECIFIED (4) UTI (urinary tract infection) Code(s): N39.0 - URINARY TRACT INFECTION, SITE NOT SPECIFIED (5) Ventilator associated pneumonia Code(s): J95.851 - VENTILATOR ASSOCIATED PNEUMONIA (6) Anoxic brain injury Code(s): G93.1 - ANOXIC BRAIN DAMAGE, NOT ELSEWHERE CLASSIFIED (7) Chronic respiratory failure Code(s): J96.10 - CHRONIC RESPIRATORY FAILURE, UNSP W HYPOXIA OR HYPERCAPNIA Qualifiers: Respiratory failure complication: unspecified whether with hypoxia or hypercapnia Qualified Code(s): J96.10 - Chronic respiratory failure, unspecified whether with hypoxia or hypercapnia (8) Condylomata acuminata in male Code(s): A63.0 - ANOGENITAL (VENEREAL) WARTS Assessment/Plan Abx continue present care comfort care pt is DNR Will follow
--- NOTE | 2019-10-11 16:47 | CONSULT ---
Consult Consult Specialty:: Palliative care Referred by:: Luann Fitzgerald Reason for Consultation:: Goals of care - History of Present Illness Chief Complaint: vegetative state, ac calculous cholecystitis History of Present Illness: This is a 64 y/o male from [facility] with a PMHx of Anoxic Brain Injury (secondary to HI 05/2017, with a resultant vegetative state), Tracheostomy on vent, HTN, Afib (on Eliquis), Hepatitis C, Quadraplegic who was admitted to [facility] 10/02 with fever and hematuria. At baseline he is in a vegetative state, quadriplegic, vent dependent, on t/feeds. His hematuria resolved off a/c. He is deemed not a surgical candidate and family has decided against cholecystostomy. Palliative care consult requested for goals of care. 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) Pulmonary: Yes: COPD (ventilator dependent with tracheostomy), Other (trach/vent dependent) Gastrointestinal: Yes: Constipation, GERD, Other (Feeding gastrostomy (PEG) tube) Hepatobiliary: Yes: Cholelithiasis, Hepatitis C (by other's history) Renal/: Yes: Neurogenic Bladder (with suprapubic cystostomy) Infectious Disease: Yes: Other (genital condylomata, ??typhoid fever) Psych: Yes: Addictions (alcoholism) ENT: Yes: Other (dry eye syndrome) Endocrine: Yes: Hypothyroidism - Past Surgical History Past Surgical History: Yes: Upper Endoscopy - Alcohol/Substance Use Hx Alcohol Use: Yes (in past only) History of Substance Use: reports: Heroin (in past only) - Smoking History Smoking history: Former smoker Have you smoked in the past 12 months: No If you are a former smoker, when did you quit?: 9 years ago - Social History Usual Living Arrangement: [facility]dc ADL: Support Services History of Recent Travel: No Home Medications - Allergies Allergies/Adverse Reactions: Allergies Allergy/AdvReac Type Severity Reaction Status Date / Time No Known Allergies Allergy Verified 10/02/19 15:55 - Home Medications Home Medications: Ambulatory Orders Acetaminophen [Tylenol .Extra-Strength -] 500 mg GT Q6H PRN 07/31/17 Hypromellose 0.5% Opth Soln [Artificial Tears] 1 drop OU QID 07/31/17 Metoprolol Tartrate [Lopressor -] 50 mg GT BID #60 tablet 08/10/17 Amiodarone HCl [Cordarone -] 200 mg GT DAILY 10/24/17 Apixaban [Eliquis -] 5 mg GT BID 10/24/17 Furosemide [Lasix -] 40 mg GT DAILY 10/24/17 Potassium Chloride [Potassium Chloride Oral Liquid] 20 meq GT DAILY 10/24/17 Zinc Oxide 20% Topical Oint 454 gm NR BID PRN 10/24/17 Albuterol 2.5/Ipratropium 0.5 [Duoneb -] 1 amp NEB TID 03/09/18 Ergocalciferol (Vitamin D2) [Calcidol] 6.25 ml PO WEEKLY 03/09/18 Lactobacillus Acidophilus [Bacid -] 1 tab GT BID tab 03/12/18 levETIRAcetam [Keppra Oral Solution -] 500 mg GT BID cup 05/18/18 Amino Acids/Protein Hydrolys [Prosource No Carb Liquid Pkt] 30 ml GT DAILY packet 05/03/19 Digoxin [Lanoxin -] 0.125 mg GT DAILY tablet 05/03/19 Ascorbic Acid [Vitamin C -] 500 mg GT DAILY 07/02/19 Acetaminophen 650 mg PO DAILY PRN 08/09/19 Levothyroxine [Synthroid -] 150 mcg GT DAILY@0600 08/09/19 Acetaminophen [Tylenol .Extra-Strength -] 500 mg NGT Q6H 08/10/19 Calcium Alginate [Matthew] 1 bandage TP DAILY 08/10/19 Family Medical History Family History: Unable to Obtain Review of Systems Unable to obtain ROS, reason: unresponsive Physical Exam Vital Signs: Vital Signs Temperature 98.8 F 10/11/19 14:00 Pulse Rate 88 10/11/19 14:00 Respiratory Rate 15 10/11/19 15:41 Blood Pressure 122/69 10/11/19 14:00 O2 Sat by Pulse Oximetry (%) 100 10/11/19 15:41 Constitutional: Yes: Well Nourished Eyes: Yes: Other (eyes taped) HENT: Yes: Atraumatic, Normocephalic Neck: Yes: Other (+ trach) Respiratory: Yes: Mechanically Ventilated Neurological: Yes: Unresponsive Labs: CBC, BMP 10/09/19 13:15 10/09/19 13:15 Imaging - Results Chest X-ray: Report Reviewed Cat Scan: Report Reviewed Ultrasound: Report Reviewed Other: Report Reviewed Problem List - Problems (1) Acute calculous cholecystitis Code(s): K80.00 - CALCULUS OF GALLBLADDER W ACUTE CHOLECYST W/O OBSTRUCTION (2) Hematuria Code(s): R31.9 - HEMATURIA, UNSPECIFIED (3) Anoxic brain injury Code(s): G93.1 - ANOXIC BRAIN DAMAGE, NOT ELSEWHERE CLASSIFIED (4) Sacral pressure ulcer Code(s): L89.159 - PRESSURE ULCER OF SACRAL REGION, UNSPECIFIED STAGE Assessment/Plan This is a 64 y/o male from [facility] with a PMHx of Anoxic Brain Injury (secondary to HI 05/2017, with a resultant vegetative state), Tracheostomy on vent, HTN, Afib (on Eliquis), Hepatitis C, Quadraplegic who was admitted to [facility] 10/02 with fever and hematuria. At baseline he is in a vegetative state, quadriplegic, vent dependent, on t/feeds. His hematuria resolved off a/c. He is deemed not a surgical candidate and family has decided against cholecystostomy. Palliative care consult requested for goals of care. Patient is a DNR. Prognosis is poor. Comfort care would be appropriate. Cont supportive care for now with a/bs, enteral feeds no procedures planned for now. Thankyou for allowing me to participate in the care of this patient. Please call with questions. Elvis Gu MD [phone] Total time for chart review, examination and coordination of care- 50 minutes
--- NOTE | 2019-10-11 23:51 | PN ---
Progress Note, Physician - Current Medication List Current Medications: Active Medications Acetaminophen (Tylenol -) 500 mg GT Q6H PRN PRN Reason: PAIN LEVEL 4 - 6 Last Admin: 10/09/19 21:43 Dose: 500 mg Documented by: Artificial Tears (Artificial Tears Ointment -) 1 applic OU Q6H [facility] Last Admin: 10/11/19 23:11 Dose: 1 applic Documented by: Ceftazidime 2 gm/ Dextrose 100 mls @ 200 mls/hr IVPB Q8H-IV [facility]; Protocol Last Admin: 10/11/19 17:24 Dose: 200 mls/hr Documented by: Vancomycin HCl (Vancomycin (Pre-Docked)) 1,000 mg in 250 mls @ 166.667 mls/hr IVPB Q12H [facility]; Protocol Last Admin: 10/11/19 23:11 Dose: 166.667 mls/hr Documented by: Levetiracetam (Keppra Oral Solution -) 500 mg GT BID [facility] Last Admin: 10/11/19 21:06 Dose: 500 mg Documented by: Levothyroxine Sodium (Synthroid -) 150 mcg GT DAILY@0600 [facility] Last Admin: 10/11/19 05:17 Dose: 150 mcg Documented by: Oxycodone HCl (Roxicodone -) 5 mg PO Q4H [facility] Last Admin: 10/11/19 21:06 Dose: 5 mg Documented by: - Objective Vital Signs: Vital Signs Temperature 97.8 F 10/11/19 20:55 Pulse Rate 113 H 10/11/19 20:55 Respiratory Rate 13 10/11/19 21:00 Blood Pressure 130/80 10/11/19 20:55 O2 Sat by Pulse Oximetry (%) 100 10/11/19 21:00 Labs: CBC, BMP 10/09/19 13:15 10/09/19 13:15 INR, PTT INR 1.13 (0.83-1.09) H 10/07/19 07:20
[2019-10-12] MEDS ORDERED: PT OWN MED DRAWER 7, Y5N ONE ×3 (01:02→17:22)
[2019-10-12] MEDS: CEFTAZIDIME PENTAHYDRATE 2 GM in DEXTROSE 5%-WATER - 100 ML IVPB SCH ×3 (01:15→17:52)
[2019-10-12] MEDS: oxyCODONE HCL 5 MG TABLET PO SCH ×6 (01:17→20:39)
[2019-10-12] MEDS: LEVOTHYROXINE NA 150 MCG TABLET GT SCH (05:14)
[2019-10-12] MEDS: MINERAL OIL/PETROLATUM,WHITE 3.5 GM TUBE OU SCH ×3 (05:14→17:53)
[2019-10-12] MEDS: levETIRAcetam 500 MG/5 ML ORAL SOLUTION (UNIT-DOSE CUPS) GT SCH ×2 (10:24→21:13)
--- NOTE | 2019-10-12 10:46 | PN ---
Progress Note, Physician History of Present Illness: Comfortable All f/u noted Afebrile tolerating feeding - Current Medication List Current Medications: Active Medications Acetaminophen (Tylenol -) 500 mg GT Q6H PRN PRN Reason: PAIN LEVEL 4 - 6 Last Admin: 10/09/19 21:43 Dose: 500 mg Documented by: Artificial Tears (Artificial Tears Ointment -) 1 applic OU Q6H JESUS Last Admin: 10/12/19 05:14 Dose: 1 applic Documented by: Ceftazidime 2 gm/ Dextrose 100 mls @ 200 mls/hr IVPB Q8H-IV JESUS; Protocol Last Admin: 10/12/19 10:25 Dose: 200 mls/hr Documented by: Vancomycin HCl (Vancomycin (Pre-Docked)) 1,000 mg in 250 mls @ 166.667 mls/hr IVPB Q12H JESUS; Protocol Last Admin: 10/11/19 23:11 Dose: 166.667 mls/hr Documented by: Levetiracetam (Keppra Oral Solution -) 500 mg GT BID [facility] Last Admin: 10/12/19 10:24 Dose: 500 mg Documented by: Levothyroxine Sodium (Synthroid -) 150 mcg GT DAILY@0600 JESUS Last Admin: 10/12/19 05:14 Dose: 150 mcg Documented by: Oxycodone HCl (Roxicodone -) 5 mg PO Q4H JESUS Last Admin: 10/12/19 09:30 Dose: 5 mg Documented by: - Objective Vital Signs: Vital Signs Temperature 98.3 F 10/12/19 10:23 Pulse Rate 101 H 10/12/19 10:23 Respiratory Rate 18 10/12/19 10:23 Blood Pressure 91/66 10/12/19 10:23 O2 Sat by Pulse Oximetry (%) 99 10/12/19 10:13 Constitutional: Yes: No Distress Neck: Yes: Other (s/p trach-- vent) Cardiovascular: Yes: Regular Rate and Rhythm Respiratory: Yes: CTA Bilaterally Gastrointestinal: Yes: Soft (g tube) Edema: No Labs: CBC, BMP 10/09/19 13:15 10/09/19 13:15 INR, PTT INR 1.13 (0.83-1.09) H 10/07/19 07:20 Problem List - Problems (1) Acute calculous cholecystitis Code(s): K80.00 - CALCULUS OF GALLBLADDER W ACUTE CHOLECYST W/O OBSTRUCTION (2) Encounter for screening laboratory testing for COVID-19 virus Code(s): Z11.59 - ENCOUNTER FOR SCREENING FOR OTHER VIRAL DISEASES (3) Hematuria Code(s): R31.9 - HEMATURIA, UNSPECIFIED (4) UTI (urinary tract infection) Code(s): N39.0 - URINARY TRACT INFECTION, SITE NOT SPECIFIED (5) Ventilator associated pneumonia Code(s): J95.851 - VENTILATOR ASSOCIATED PNEUMONIA (6) Anoxic brain injury Code(s): G93.1 - ANOXIC BRAIN DAMAGE, NOT ELSEWHERE CLASSIFIED (7) Chronic respiratory failure Code(s): J96.10 - CHRONIC RESPIRATORY FAILURE, UNSP W HYPOXIA OR HYPERCAPNIA Qualifiers: Respiratory failure complication: unspecified whether with hypoxia or hypercapnia Qualified Code(s): J96.10 - Chronic respiratory failure, unspecified whether with hypoxia or hypercapnia (8) Condylomata acuminata in male Code(s): A63.0 - ANOGENITAL (VENEREAL) WARTS Assessment/Plan Abx per i/d continue present care Not surgical candidate comfort care pt is DNR Will follow.
[2019-10-12] MEDS: VANCOMYCIN 1 GRAM (PRE-DOCKED) 1,000 MG/250 ML BAG IVPB SCH ×2 (12:46→23:28)
--- NOTE | 2019-10-12 14:35 | PN ---
Progress Note (short form) - Note Progress Note: PULMONARY Vented on volume assist control. Pt unresponsive. Vital Signs Period Temp Pulse Resp BP Sys/Bhardwaj Pulse Ox Last 24 Hr 97.8 F-98.4 F 81-113 12-18 91-130/57-80 99-100 Gen: vented, unresponsive Heart: RRR Lung: scattered rhonchi Abd: soft, nontender Ext: no edema CBC, BMP 10/09/19 13:15 10/09/19 13:15 Active Medications Acetaminophen (Tylenol -) 500 mg GT Q6H PRN PRN Reason: PAIN LEVEL 4 - 6 Last Admin: 10/09/19 21:43 Dose: 500 mg Documented by: Artificial Tears (Artificial Tears Ointment -) 1 applic OU Q6H JESUS Last Admin: 10/12/19 12:46 Dose: 1 applic Documented by: Ceftazidime 2 gm/ Dextrose 100 mls @ 200 mls/hr IVPB Q8H-IV JESUS; Protocol Last Admin: 10/12/19 10:25 Dose: 200 mls/hr Documented by: Vancomycin HCl (Vancomycin (Pre-Docked)) 1,000 mg in 250 mls @ 166.667 mls/hr IVPB Q12H JESUS; Protocol Last Admin: 10/12/19 12:46 Dose: 166.667 mls/hr Documented by: Levetiracetam (Keppra Oral Solution -) 500 mg GT BID [facility] Last Admin: 10/12/19 10:24 Dose: 500 mg Documented by: Levothyroxine Sodium (Synthroid -) 150 mcg GT DAILY@0600 JESUS Last Admin: 10/12/19 05:14 Dose: 150 mcg Documented by: Oxycodone HCl (Roxicodone -) 5 mg PO Q4H JESUS Last Admin: 10/12/19 12:46 Dose: 5 mg Documented by: A/P Chronic Respiratory Failure Pneumonia UTI Sacral Decubitus Ulcer Atrial Fibrillation Anoxic Brain Injury Functional Quadriplegia - continue antibiotics per ID - inhaled brochodilators - continue volume assist control - poor candidate for weaning due to poor mental status - enteral feeds - rate control - DVT prophylaxis - agree with comfort measures
--- NOTE | 2019-10-12 21:32 | PN ---
Progress Note, Physician History of Present Illness: NOT VERBALLY RESPONSIVE BREATHING NON-LABORED AFEBRILE WBC WNL RESISTANT PSEUDOMONAS IN SPUTUM NOTED - Current Medication List Current Medications: Active Medications Acetaminophen (Tylenol -) 500 mg GT Q6H PRN PRN Reason: PAIN LEVEL 4 - 6 Last Admin: 10/09/19 21:43 Dose: 500 mg Documented by: Artificial Tears (Artificial Tears Ointment -) 1 applic OU Q6H JESUS Last Admin: 10/12/19 17:53 Dose: 1 applic Documented by: Ceftazidime 2 gm/ Dextrose 100 mls @ 200 mls/hr IVPB Q8H-IV JESUS; Protocol Last Admin: 10/12/19 17:52 Dose: 200 mls/hr Documented by: Vancomycin HCl (Vancomycin (Pre-Docked)) 1,000 mg in 250 mls @ 166.667 mls/hr IVPB Q12H JESUS; Protocol Last Admin: 10/12/19 12:46 Dose: 166.667 mls/hr Documented by: Levetiracetam (Keppra Oral Solution -) 500 mg GT BID [facility] Last Admin: 10/12/19 21:13 Dose: 500 mg Documented by: Levothyroxine Sodium (Synthroid -) 150 mcg GT DAILY@0600 JESUS Last Admin: 10/12/19 05:14 Dose: 150 mcg Documented by: Oxycodone HCl (Roxicodone -) 5 mg PO Q4H JESUS Last Admin: 10/12/19 20:39 Dose: 5 mg Documented by: - Objective Vital Signs: Vital Signs Temperature 99.0 F 10/12/19 18:00 Pulse Rate 108 H 10/12/19 18:00 Respiratory Rate 16 10/12/19 18:00 Blood Pressure 116/73 10/12/19 18:00 O2 Sat by Pulse Oximetry (%) 100 10/12/19 15:10 Cardiovascular: Yes: Regular Rate and Rhythm, S1, S2 Respiratory: Yes: Mechanically Ventilated Gastrointestinal: Yes: Soft, Abdomen, Obese Labs: CBC, BMP 10/09/19 13:15 10/09/19 13:15 INR, PTT INR 1.13 (0.83-1.09) H 10/07/19 07:20 Assessment/Plan S/P GROSS HEMATURIA UTI R/O SEPSIS SECONDARY TO UTI RLL PNEUMONIA ? CHRONIC CHOLECYSTITS CHRONIC RESP FAILURE ANOXIC ENCEPHALOPATHY CONTINUE VANCOMYCIN/ CEFTAZIDIME CONTACT PRECAUTIONS
[2019-10-13] MEDS: MINERAL OIL/PETROLATUM,WHITE 3.5 GM TUBE OU SCH ×5 (00:38→23:39)
[2019-10-13] MEDS: oxyCODONE HCL 5 MG TABLET PO SCH ×6 (00:43→21:24)
[2019-10-13] MEDS ORDERED: PT OWN MED DRAWER 7, Y5N ONE ×4 (01:38→17:45)
[2019-10-13] MEDS: CEFTAZIDIME PENTAHYDRATE 2 GM in DEXTROSE 5%-WATER - 100 ML IVPB SCH ×3 (02:27→17:58)
[2019-10-13] MEDS: LEVOTHYROXINE NA 150 MCG TABLET GT SCH (05:59)
[2019-10-13] MEDS: levETIRAcetam 500 MG/5 ML ORAL SOLUTION (UNIT-DOSE CUPS) GT SCH ×2 (10:05→21:24)
--- NOTE | 2019-10-13 10:29 | PN ---
Progress Note, Physician History of Present Illness: Comfortable All f/u noted Afebrile tolerating feeding. no new issues except no BM x few days - Current Medication List Current Medications: Active Medications Acetaminophen (Tylenol -) 500 mg GT Q6H PRN PRN Reason: PAIN LEVEL 4 - 6 Last Admin: 10/09/19 21:43 Dose: 500 mg Documented by: Artificial Tears (Artificial Tears Ointment -) 1 applic OU Q6H [facility]ESUS Last Admin: 10/13/19 05:59 Dose: 1 applic Documented by: Ceftazidime 2 gm/ Dextrose 100 mls @ 200 mls/hr IVPB Q8H-IV [facility]ESUS; Protocol Last Admin: 10/13/19 10:05 Dose: 200 mls/hr Documented by: Vancomycin HCl (Vancomycin (Pre-Docked)) 1,000 mg in 250 mls @ 166.667 mls/hr IVPB Q12H [facility]ESUS; Protocol Last Admin: 10/12/19 23:28 Dose: 166.667 mls/hr Documented by: Levetiracetam (Keppra Oral Solution -) 500 mg GT BID [facility] Last Admin: 10/13/19 10:05 Dose: 500 mg Documented by: Levothyroxine Sodium (Synthroid -) 150 mcg GT DAILY@0600 JESUS Last Admin: 10/13/19 05:59 Dose: 150 mcg Documented by: Oxycodone HCl (Roxicodone -) 5 mg PO Q4H JESUS Last Admin: 10/13/19 09:30 Dose: 5 mg Documented by: - Objective Vital Signs: Vital Signs Temperature 98.7 F 10/13/19 10:03 Pulse Rate 99 H 10/13/19 10:03 Respiratory Rate 18 10/13/19 10:03 Blood Pressure 105/62 10/13/19 10:03 O2 Sat by Pulse Oximetry (%) 100 10/13/19 04:00 Constitutional: Yes: No Distress Neck: Yes: Other (s/p trach) Cardiovascular: Yes: Regular Rate and Rhythm Respiratory: Yes: CTA Bilaterally Gastrointestinal: Yes: Soft (g tube) Edema: No Labs: CBC, BMP 10/09/19 13:15 10/09/19 13:15 INR, PTT INR 1.13 (0.83-1.09) H 10/07/19 07:20 Problem List - Problems (1) Acute calculous cholecystitis Code(s): K80.00 - CALCULUS OF GALLBLADDER W ACUTE CHOLECYST W/O OBSTRUCTION (2) Encounter for screening laboratory testing for COVID-19 virus Code(s): Z11.59 - ENCOUNTER FOR SCREENING FOR OTHER VIRAL DISEASES (3) Hematuria Code(s): R31.9 - HEMATURIA, UNSPECIFIED (4) UTI (urinary tract infection) Code(s): N39.0 - URINARY TRACT INFECTION, SITE NOT SPECIFIED (5) Ventilator associated pneumonia Code(s): J95.851 - VENTILATOR ASSOCIATED PNEUMONIA (6) Anoxic brain injury Code(s): G93.1 - ANOXIC BRAIN DAMAGE, NOT ELSEWHERE CLASSIFIED (7) Chronic respiratory failure Code(s): J96.10 - CHRONIC RESPIRATORY FAILURE, UNSP W HYPOXIA OR HYPERCAPNIA Qualifiers: Respiratory failure complication: unspecified whether with hypoxia or hypercapnia Qualified Code(s): J96.10 - Chronic respiratory failure, unspecified whether with hypoxia or hypercapnia (8) Condylomata acuminata in male Code(s): A63.0 - ANOGENITAL (VENEREAL) WARTS Assessment/Plan Abx per i/d continue present care Not surgical candidate comfort care pt is DNR Miralax Will follow.
[2019-10-13] MEDS: VANCOMYCIN 1 GRAM (PRE-DOCKED) 1,000 MG/250 ML BAG IVPB SCH ×2 (11:34→23:39)
[2019-10-13] MEDS: POLYETHYLENE GLYCOL 3350 119 GM BTL PEG PRN (11:37)
--- NOTE | 2019-10-13 13:55 | PN ---
Progress Note (short form) - Note Progress Note: PULMONARY Vented on volume assist control. Pt unresponsive. Vital Signs Period Temp Pulse Resp BP Sys/Bhardwaj Pulse Ox Last 24 Hr 98.1 F-99.3 F 82-115 12-18 101-116/55-73 98-100 Gen: vented, unresponsive Heart: RRR Lung: scattered rhonchi Abd: soft, nontender Ext: no edema CBC, BMP 10/09/19 13:15 10/09/19 13:15 Active Medications Acetaminophen (Tylenol -) 500 mg GT Q6H PRN PRN Reason: PAIN LEVEL 4 - 6 Last Admin: 10/09/19 21:43 Dose: 500 mg Documented by: Artificial Tears (Artificial Tears Ointment -) 1 applic OU Q6H JESUS Last Admin: 10/13/19 11:35 Dose: 1 applic Documented by: Ceftazidime 2 gm/ Dextrose 100 mls @ 200 mls/hr IVPB Q8H-IV JESUS; Protocol Last Admin: 10/13/19 10:05 Dose: 200 mls/hr Documented by: Vancomycin HCl (Vancomycin (Pre-Docked)) 1,000 mg in 250 mls @ 166.667 mls/hr IVPB Q12H JESUS; Protocol Last Admin: 10/13/19 11:34 Dose: 166.667 mls/hr Documented by: Levetiracetam (Keppra Oral Solution -) 500 mg GT BID [facility] Last Admin: 10/13/19 10:05 Dose: 500 mg Documented by: Levothyroxine Sodium (Synthroid -) 150 mcg GT DAILY@0600 JESUS Last Admin: 10/13/19 05:59 Dose: 150 mcg Documented by: Oxycodone HCl (Roxicodone -) 5 mg PO Q4H JESUS Last Admin: 10/13/19 11:49 Dose: 5 mg Documented by: Polyethylene Glycol (Miralax (For Daily Use) -) 17 gm PEG DAILY PRN PRN Reason: CONSTIPATION Last Admin: 10/13/19 11:37 Dose: 17 gm Documented by: A/P Chronic Respiratory Failure Pneumonia UTI f/o Acute Cholecystitis Sacral Decubitus Ulcer Atrial Fibrillation Anoxic Brain Injury Functional Quadriplegia - continue antibiotics per ID - inhaled brochodilators - continue volume assist control - poor candidate for weaning due to poor mental status - enteral feeds - rate control - DVT prophylaxis - agree with comfort measures
[2019-10-14] MEDS: CEFTAZIDIME PENTAHYDRATE 2 GM in DEXTROSE 5%-WATER - 100 ML IVPB SCH ×3 (01:53→17:39)
[2019-10-14] MEDS: oxyCODONE HCL 5 MG TABLET PO SCH ×6 (01:53→22:30)
[2019-10-14] MEDS: LEVOTHYROXINE NA 150 MCG TABLET GT SCH (06:19)
[2019-10-14] MEDS: MINERAL OIL/PETROLATUM,WHITE 3.5 GM TUBE OU SCH ×4 (06:20→23:10)
--- NOTE | 2019-10-14 07:37 | PN ---
Progress Note, Physician History of Present Illness: 64 y/o male from [facility] with a PMHx of Anoxic Brain Injury (secondary to [place] 05/2017, with a resultant vegetative state), Tracheostomy on vent, HTN, Afib (on Eliquis), Hepatitis C, Quadraplegic. Who presents to the ED for evaluation of hematuria and fever. Patient has an DARREN unable to provide HPI. - Current Medication List Current Medications: Active Medications Acetaminophen (Tylenol -) 500 mg GT Q6H PRN PRN Reason: PAIN LEVEL 4 - 6 Last Admin: 10/09/19 21:43 Dose: 500 mg Documented by: Artificial Tears (Artificial Tears Ointment -) 1 applic OU Q6H JESUS Last Admin: 10/14/19 06:20 Dose: 1 applic Documented by: Ceftazidime 2 gm/ Dextrose 100 mls @ 200 mls/hr IVPB Q8H-IV JESUS; Protocol Last Admin: 10/14/19 01:53 Dose: 200 mls/hr Documented by: Vancomycin HCl (Vancomycin (Pre-Docked)) 1,000 mg in 250 mls @ 166.667 mls/hr IVPB Q12H JESUS; Protocol Last Admin: 10/13/19 23:39 Dose: 166.667 mls/hr Documented by: Levetiracetam (Keppra Oral Solution -) 500 mg GT BID [facility]US Last Admin: 10/13/19 21:24 Dose: 500 mg Documented by: Levothyroxine Sodium (Synthroid -) 150 mcg GT DAILY@0600 JESUS Last Admin: 10/14/19 06:19 Dose: 150 mcg Documented by: Oxycodone HCl (Roxicodone -) 5 mg PO Q4H JESUS Last Admin: 10/14/19 04:57 Dose: 5 mg Documented by: Polyethylene Glycol (Miralax (For Daily Use) -) 17 gm PEG DAILY PRN PRN Reason: CONSTIPATION Last Admin: 10/13/19 11:37 Dose: 17 gm Documented by: - Objective Vital Signs: Vital Signs Temperature 98.7 F 10/14/19 06:00 Pulse Rate 109 H 10/14/19 06:00 Respiratory Rate 16 10/14/19 06:00 Blood Pressure 92/66 10/14/19 06:00 O2 Sat by Pulse Oximetry (%) 99 10/14/19 04:50 Eyes: Yes: WNL, Conjunctiva Clear, EOM Intact HENT: Yes: WNL, Atraumatic, Normocephalic Neck: Yes: WNL, Supple, Trachea Midline Cardiovascular: Yes: WNL, Regular Rate and Rhythm Respiratory: Yes: Mechanically Ventilated Gastrointestinal: Yes: WNL, Normal Bowel Sounds Genitourinary: Yes: WNL Musculoskeletal: Yes: WNL Extremities: Yes: WNL Edema: No Integumentary: Yes: WNL ...Motor Strength: WNL Psychiatric: Yes: WNL Labs: CBC, BMP 10/09/19 13:15 10/09/19 13:15 INR, PTT INR 1.13 (0.83-1.09) H 10/07/19 07:20 Assessment/Plan Acute/chronic systolic CHF (2018 ECHO: moderate-severely reduced LVEF) acute cholecystitis hematuria; fever s/p NE-->vegetative state quadriplegic tracheostomy/ventilator dependent renal dysfunction: resolving suprpubic catheter HTN AF chronic anemia seizures: on Keppra hypothyroidism: on Synthroid Plan: COVID not detected. ECHO for LVEF, valve status, chamber sizes: to be done today. On CLinim[facility] CXR: residual right plueral effusion; "no CHF" F/u BUN/Cr, electrolytes, daily weight, Is and Os. If digoxin is to be continued, keep Digoxin level 0.4-0.8 (presently 0.84). Given pt's significantly reduced LVEF, agents to be considered include beta blockers (if no hx asthma), Entresto (or ACEI or ARB) and RAAS (spironolactone) if renal/electrolyte levels allow, though they should be tried one at a time, and at low doses (borderline low BP).Pt's vegetative state and overall poor pronosis should factor into decision for multidrug CHF therapy. Ventilator settings, O2, antibiotics (on cephalosporin and Vancomycin) per director of distribution, ID. TSH WNL. Keep LDL cholesterol < 70 mg/dL. F/u anemia w/u. On antibiotics (sputum: multi-drug resistant bacteria) Apixaban held due to hematuria; restart when cleared by urologist.
[2019-10-14] MEDS ORDERED: PT OWN MED DRAWER 7, Y5N ONE ×2 (09:50→17:14)
[2019-10-14] MEDS: levETIRAcetam 500 MG/5 ML ORAL SOLUTION (UNIT-DOSE CUPS) GT SCH ×2 (09:57→22:31)
[2019-10-14] MEDS ORDERED: FUROSEMIDE 40 MG/4 ML INJECTABLE VIAL IVPUSH ONE (12:12)
--- NOTE | 2019-10-14 12:12 | PN ---
Progress Note, Physician History of Present Illness: Comfortable All f/u noted Afebrile tolerating feeding. no new issues except leg edema - Current Medication List Current Medications: Active Medications Acetaminophen (Tylenol -) 500 mg GT Q6H PRN PRN Reason: PAIN LEVEL 4 - 6 Last Admin: 10/09/19 21:43 Dose: 500 mg Documented by: Artificial Tears (Artificial Tears Ointment -) 1 applic OU Q6H JESUS Last Admin: 10/14/19 06:20 Dose: 1 applic Documented by: Ceftazidime 2 gm/ Dextrose 100 mls @ 200 mls/hr IVPB Q8H-IV JESUS; Protocol Last Admin: 10/14/19 09:56 Dose: 200 mls/hr Documented by: Vancomycin HCl (Vancomycin (Pre-Docked)) 1,000 mg in 250 mls @ 166.667 mls/hr IVPB Q12H JESUS; Protocol Last Admin: 10/13/19 23:39 Dose: 166.667 mls/hr Documented by: Levetiracetam (Keppra Oral Solution -) 500 mg GT BID JESUS Last Admin: 10/14/19 09:57 Dose: 500 mg Documented by: Levothyroxine Sodium (Synthroid -) 150 mcg GT DAILY@0600 JESUS Last Admin: 10/14/19 06:19 Dose: 150 mcg Documented by: Oxycodone HCl (Roxicodone -) 5 mg PO Q4H JESUS Last Admin: 10/14/19 09:53 Dose: 5 mg Documented by: Polyethylene Glycol (Miralax (For Daily Use) -) 17 gm PEG DAILY PRN PRN Reason: CONSTIPATION Last Admin: 10/13/19 11:37 Dose: 17 gm Documented by: - Objective Vital Signs: Vital Signs Temperature 98.7 F 10/14/19 06:00 Pulse Rate 109 H 10/14/19 06:00 Respiratory Rate 12 10/14/19 11:50 Blood Pressure 92/66 10/14/19 06:00 O2 Sat by Pulse Oximetry (%) 100 10/14/19 11:50 Constitutional: Yes: Calm, Other HENT: Yes: Other (Trach) Cardiovascular: Yes: Regular Rate and Rhythm Gastrointestinal: Yes: Soft, Other (G tube) Edema: LLE: 2+, RLE: 2+ Labs: CBC, BMP 10/09/19 13:15 07/01/20 13:15 INR, PTT INR 1.13 (0.83-1.09) H 10/07/19 07:20 Problem List - Problems (1) Acute calculous cholecystitis Code(s): K80.00 - CALCULUS OF GALLBLADDER W ACUTE CHOLECYST W/O OBSTRUCTION (2) Encounter for screening laboratory testing for COVID-19 virus Code(s): Z11.59 - ENCOUNTER FOR SCREENING FOR OTHER VIRAL DISEASES (3) Hematuria Code(s): R31.9 - HEMATURIA, UNSPECIFIED (4) UTI (urinary tract infection) Code(s): N39.0 - URINARY TRACT INFECTION, SITE NOT SPECIFIED (5) Ventilator associated pneumonia Code(s): J95.851 - VENTILATOR ASSOCIATED PNEUMONIA (6) Anoxic brain injury Code(s): G93.1 - ANOXIC BRAIN DAMAGE, NOT ELSEWHERE CLASSIFIED (7) Chronic respiratory failure Code(s): J96.10 - CHRONIC RESPIRATORY FAILURE, UNSP W HYPOXIA OR HYPERCAPNIA Qualifiers: Respiratory failure complication: unspecified whether with hypoxia or hypercapnia Qualified Code(s): J96.10 - Chronic respiratory failure, unspecified whether with hypoxia or hypercapnia (8) Condylomata acuminata in male Code(s): A63.0 - ANOGENITAL (VENEREAL) WARTS Assessment/Plan Will give small dose of lasix Abx per i/d continue present care Not surgical candidate comfort care pt is DNR Miralax prn Will follow.
[2019-10-14] MEDS: VANCOMYCIN 1 GRAM (PRE-DOCKED) 1,000 MG/250 ML BAG IVPB SCH ×2 (12:55→23:06)
[2019-10-14 13:22] VITALS: BMI 28.1
--- NOTE | 2019-10-14 13:22 | PN ---
Progress Note (short form) - Note Progress Note: Vented on volume assist control. Unresponsive. No acute events overnight. Intake & Output 10/11/19 10/12/19 10/13/19 10/14/19 23:59 23:59 23:59 23:59 Intake Total 3890 2030 3800 250 Output Total 2050 2800 3300 1000 Balance 1840 -770 500 -750 Weight 194 lb 195 lb 4.8 oz 201 lb 9 oz 202 lb 2 oz Last Vital Signs Temp Pulse Resp BP Pulse Ox 98.7 F 109 H 12 92/66 100 10/14/19 06:00 10/14/19 06:00 10/14/19 11:50 10/14/19 06:00 10/14/19 11:50 Active Medications Acetaminophen (Tylenol -) 500 mg GT Q6H PRN PRN Reason: PAIN LEVEL 4 - 6 Last Admin: 10/09/19 21:43 Dose: 500 mg Documented by: Artificial Tears (Artificial Tears Ointment -) 1 applic OU Q6H JESUS Last Admin: 10/14/19 12:55 Dose: 1 applic Documented by: Ceftazidime 2 gm/ Dextrose 100 mls @ 200 mls/hr IVPB Q8H-IV JESUS; Protocol Last Admin: 10/14/19 09:56 Dose: 200 mls/hr Documented by: Vancomycin HCl (Vancomycin (Pre-Docked)) 1,000 mg in 250 mls @ 166.667 mls/hr IVPB Q12H JESUS; Protocol Last Admin: 10/14/19 12:55 Dose: 166.667 mls/hr Documented by: Levetiracetam (Keppra Oral Solution -) 500 mg GT BID JESUS Last Admin: 10/14/19 09:57 Dose: 500 mg Documented by: Levothyroxine Sodium (Synthroid -) 150 mcg GT DAILY@0600 JESUS Last Admin: 10/14/19 06:19 Dose: 150 mcg Documented by: Oxycodone HCl (Roxicodone -) 5 mg PO Q4H JESUS Last Admin: 10/14/19 12:56 Dose: 5 mg Documented by: Polyethylene Glycol (Miralax (For Daily Use) -) 17 gm PEG DAILY PRN PRN Reason: CONSTIPATION Last Admin: 10/13/19 11:37 Dose: 17 gm Documented by: Gen: vented, unresponsive Heart: RRR Lung: scattered rhonchi Abd: soft, nontender Ext: no edema A/P Chronic Respiratory Failure Pneumonia UTI f/o Acute Cholecystitis Sacral Decubitus Ulcer Atrial Fibrillation Anoxic Brain Injury Functional Quadriplegia - continue antibiotics per ID - inhaled brochodilators - continue volume assist control - poor candidate for weaning due to poor mental status - enteral feeds - rate control - DVT prophylaxis - agree with comfort measures Dr Sweeney
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
[2019-10-14] MEDS: AMINO ACIDS/PROTEIN HYDROLYS 30 ML LIQUID.PKT PEG SCH (17:39)
[2019-10-15] MEDS: oxyCODONE HCL 5 MG TABLET PO SCH ×7 (01:10→23:23)
[2019-10-15] MEDS: CEFTAZIDIME PENTAHYDRATE 2 GM in DEXTROSE 5%-WATER - 100 ML IVPB SCH ×3 (02:41→17:19)
[2019-10-15] MEDS: LEVOTHYROXINE NA 150 MCG TABLET GT SCH (05:18)
[2019-10-15] MEDS: MINERAL OIL/PETROLATUM,WHITE 3.5 GM TUBE OU SCH ×4 (05:18→23:23)
--- NOTE | 2019-10-15 07:35 | PN ---
Progress Note, Physician History of Present Illness: PULMONARY NO CHANGE UNRESPONSIVE IN VENT SUPPORT AC MODE - Current Medication List Current Medications: Active Medications Acetaminophen (Tylenol -) 500 mg GT Q6H PRN PRN Reason: PAIN LEVEL 4 - 6 Last Admin: 10/09/19 21:43 Dose: 500 mg Documented by: Amino Acids (Prosource No Carb Liquid Pkt) 30 ml PEG BID@0800,1730 [facility] Last Admin: 10/14/19 17:39 Dose: 30 ml Documented by: Artificial Tears (Artificial Tears Ointment -) 1 applic OU Q6H JESUS Last Admin: 10/15/19 05:18 Dose: 1 applic Documented by: Ceftazidime 2 gm/ Dextrose 100 mls @ 200 mls/hr IVPB Q8H-IV JESUS; Protocol Last Admin: 10/15/19 02:41 Dose: 200 mls/hr Documented by: Vancomycin HCl (Vancomycin (Pre-Docked)) 1,000 mg in 250 mls @ 166.667 mls/hr IVPB Q12H JESUS; Protocol Last Admin: 10/14/19 23:06 Dose: 166.667 mls/hr Documented by: Levetiracetam (Keppra Oral Solution -) 500 mg GT BID [facility] Last Admin: 10/14/19 22:31 Dose: 500 mg Documented by: Levothyroxine Sodium (Synthroid -) 150 mcg GT DAILY@0600 [facility] Last Admin: 10/15/19 05:18 Dose: 150 mcg Documented by: Oxycodone HCl (Roxicodone -) 5 mg PO Q4H [facility] Last Admin: 10/15/19 05:17 Dose: 5 mg Documented by: Polyethylene Glycol (Miralax (For Daily Use) -) 17 gm PEG DAILY PRN PRN Reason: CONSTIPATION Last Admin: 10/13/19 11:37 Dose: 17 gm Documented by: - Objective Vital Signs: Vital Signs Temperature 98.0 F 10/15/19 06:00 Pulse Rate 113 H 10/15/19 06:00 Respiratory Rate 14 10/15/19 06:00 Blood Pressure 110/82 10/15/19 06:00 O2 Sat by Pulse Oximetry (%) 99 10/15/19 04:46 Constitutional: Yes: Well Nourished, Other (UNRESPONSIVE) Eyes: Yes: WNL HENT: Yes: WNL Neck: Yes: Supple (TRACH) Cardiovascular: Yes: Pulse Irregular, S1, S2 Respiratory: Yes: Diminished, Rhonchi (FEW RNONCHI) Gastrointestinal: Yes: Normal Bowel Sounds, Soft Extremities: Yes: WNL Edema: No Labs: CBC, BMP Problem List - Problems (1) Encounter for screening laboratory testing for COVID-19 virus Code(s): Z11.59 - ENCOUNTER FOR SCREENING FOR OTHER VIRAL DISEASES (2) Anoxic brain injury Code(s): G93.1 - ANOXIC BRAIN DAMAGE, NOT ELSEWHERE CLASSIFIED (3) Atrial fibrillation Code(s): I48.91 - UNSPECIFIED ATRIAL FIBRILLATION Qualifiers: Atrial fibrillation type: persistent (4) Chronic respiratory failure Code(s): J96.10 - CHRONIC RESPIRATORY FAILURE, UNSP W HYPOXIA OR HYPERCAPNIA Qualifiers: Respiratory failure complication: unspecified whether with hypoxia or hypercapnia Qualified Code(s): J96.10 - Chronic respiratory failure, unspecified whether with hypoxia or hypercapnia (5) Quadriplegia, functional Code(s): R53.2 - FUNCTIONAL QUADRIPLEGIA (6) Tracheostomy tube present Code(s): Z93.0 - TRACHEOSTOMY STATUS Assessment/Plan ASSESSMENT/PLAN: AFib: rate controlled at present Chronic Respiratory Failure Hematuria UTI Vent dependent Anoxic brain injury Sacral ulcer Functional quadriplegia R.O Covid 19 NEGATIVE Acute Cholecystitis AC Mode of vent ABX Aspiration precautions IVF DR ALEXANDER
[2019-10-15] MEDS: AMINO ACIDS/PROTEIN HYDROLYS 30 ML LIQUID.PKT PEG SCH ×2 (08:40→17:18)
[2019-10-15] MEDS ORDERED: PT OWN MED DRAWER 7, Y5N ONE ×2 (10:01→17:18)
[2019-10-15] MEDS: levETIRAcetam 500 MG/5 ML ORAL SOLUTION (UNIT-DOSE CUPS) GT SCH ×2 (10:03→22:20)
[2019-10-15] MEDS: POLYETHYLENE GLYCOL 3350 119 GM BTL PEG PRN (10:06)
[2019-10-15] MEDS: VANCOMYCIN 1 GRAM (PRE-DOCKED) 1,000 MG/250 ML BAG IVPB SCH ×2 (11:51→23:22)
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
[2019-10-15] MEDS: FUROSEMIDE 40 MG/5 ML UNIT-DOSE CUP PO SCH (13:57)
--- NOTE | 2019-10-15 20:01 | PN ---
Progress Note, Physician History of Present Illness: NOT VERBALLY RESPONSIVE BREATHING NON-LABORED AFEBRILE WBC WNL RESISTANT PSEUDOMONAS IN SPUTUM NOTED - Current Medication List Current Medications: Active Medications Acetaminophen (Tylenol -) 500 mg GT Q6H PRN PRN Reason: PAIN LEVEL 4 - 6 Last Admin: 10/09/19 21:43 Dose: 500 mg Documented by: Amino Acids (Prosource No Carb Liquid Pkt) 30 ml PEG BID@0800,1730 [facility] Last Admin: 10/15/19 17:18 Dose: 30 ml Documented by: Artificial Tears (Artificial Tears Ointment -) 1 applic OU Q6H JESUS Last Admin: 10/15/19 17:20 Dose: 1 applic Documented by: Furosemide (Lasix Oral Solution -) 40 mg PO DAILY [facility] Last Admin: 10/15/19 13:57 Dose: 40 mg Documented by: Ceftazidime 2 gm/ Dextrose 100 mls @ 200 mls/hr IVPB Q8H-IV JESUS; Protocol Last Admin: 10/15/19 17:19 Dose: 200 mls/hr Documented by: Vancomycin HCl (Vancomycin (Pre-Docked)) 1,000 mg in 250 mls @ 166.667 mls/hr IVPB Q12H JESUS; Protocol Last Admin: 10/15/19 11:51 Dose: 166.667 mls/hr Documented by: Levetiracetam (Keppra Oral Solution -) 500 mg GT BID [facility] Last Admin: 10/15/19 10:03 Dose: 500 mg Documented by: Levothyroxine Sodium (Synthroid -) 150 mcg GT DAILY@0600 [facility] Last Admin: 10/15/19 05:18 Dose: 150 mcg Documented by: Oxycodone HCl (Roxicodone -) 5 mg PO Q6HPO [facility] Last Admin: 10/15/19 17:19 Dose: 5 mg Documented by: Polyethylene Glycol (Miralax (For Daily Use) -) 17 gm PEG DAILY PRN PRN Reason: CONSTIPATION Last Admin: 10/15/19 10:06 Dose: 17 gm Documented by: - Objective Vital Signs: Vital Signs Temperature 97.7 F 10/15/19 18:00 Pulse Rate 84 10/15/19 18:00 Respiratory Rate 14 10/15/19 18:00 Blood Pressure 94/60 10/15/19 18:00 O2 Sat by Pulse Oximetry (%) 99 10/15/19 16:10 Constitutional: Yes: No Distress Cardiovascular: Yes: Regular Rate and Rhythm, S1, S2 Respiratory: Yes: Diminished Edema: No Labs: CBC, BMP 10/09/19 13:15 10/09/19 13:15 INR, PTT INR 1.13 (0.83-1.09) H 10/07/19 07:20 Assessment/Plan S/P GROSS HEMATURIA UTI R/O SEPSIS SECONDARY TO UTI RLL PNEUMONIA ? CHRONIC CHOLECYSTITS CHRONIC RESP FAILURE ANOXIC ENCEPHALOPATHY CONTINUE ANTIBIOTICS CONTACT PRECAUTIONS
[2019-10-16] MEDS ORDERED: PT OWN MED DRAWER 7, Y5N ONE ×2 (01:31→09:34)
[2019-10-16] MEDS: CEFTAZIDIME PENTAHYDRATE 2 GM in DEXTROSE 5%-WATER - 100 ML IVPB SCH ×2 (01:36→09:44)
[2019-10-16] MEDS: oxyCODONE HCL 5 MG TABLET PO SCH ×3 (05:10→17:07)
[2019-10-16] MEDS: MINERAL OIL/PETROLATUM,WHITE 3.5 GM TUBE OU SCH ×3 (05:10→17:07)
[2019-10-16] MEDS: LEVOTHYROXINE NA 150 MCG TABLET GT SCH (05:10)
--- NOTE | 2019-10-16 07:23 | PN ---
Progress Note, Physician History of Present Illness: pulmonary no change,unresponsive on vent support ac mode - Current Medication List Current Medications: Active Medications Acetaminophen (Tylenol -) 500 mg GT Q6H PRN PRN Reason: PAIN LEVEL 4 - 6 Last Admin: 10/09/19 21:43 Dose: 500 mg Documented by: Amino Acids (Prosource No Carb Liquid Pkt) 30 ml PEG BID@0800,1730 [facility] Last Admin: 10/15/19 17:18 Dose: 30 ml Documented by: Artificial Tears (Artificial Tears Ointment -) 1 applic OU Q6H [facility] Last Admin: 10/16/19 05:10 Dose: 1 applic Documented by: Furosemide (Lasix Oral Solution -) 40 mg PO DAILY [facility] Last Admin: 10/15/19 13:57 Dose: 40 mg Documented by: Ceftazidime 2 gm/ Dextrose 100 mls @ 200 mls/hr IVPB Q8H-IV JESUS; Protocol Last Admin: 10/16/19 01:36 Dose: 200 mls/hr Documented by: Vancomycin HCl (Vancomycin (Pre-Docked)) 1,000 mg in 250 mls @ 166.667 mls/hr IVPB Q12H JESUS; Protocol Last Admin: 10/15/19 23:22 Dose: 166.667 mls/hr Documented by: Levetiracetam (Keppra Oral Solution -) 500 mg GT BID [facility] Last Admin: 10/15/19 22:20 Dose: 500 mg Documented by: Levothyroxine Sodium (Synthroid -) 150 mcg GT DAILY@0600 [facility] Last Admin: 10/16/19 05:10 Dose: 150 mcg Documented by: Oxycodone HCl (Roxicodone -) 5 mg PO Q6HPO [facility] Last Admin: 10/16/19 05:10 Dose: 5 mg Documented by: Polyethylene Glycol (Miralax (For Daily Use) -) 17 gm PEG DAILY PRN PRN Reason: CONSTIPATION Last Admin: 10/15/19 10:06 Dose: 17 gm Documented by: - Objective Vital Signs: Vital Signs Temperature 97.5 F L 10/16/19 06:00 Pulse Rate 89 10/16/19 06:00 Respiratory Rate 14 10/16/19 06:00 Blood Pressure 94/73 10/16/19 06:00 O2 Sat by Pulse Oximetry (%) 100 10/16/19 04:41 Constitutional: Yes: Well Nourished, Other (unresponsive) Eyes: Yes: WNL HENT: Yes: WNL Neck: Yes: Supple (trach) Cardiovascular: Yes: Pulse Irregular, S1, S2 Respiratory: Yes: Diminished Gastrointestinal: Yes: Normal Bowel Sounds, Soft Extremities: Yes: WNL Edema: No Labs: CBC, BMP Problem List - Problems (1) Encounter for screening laboratory testing for COVID-19 virus Code(s): Z11.59 - ENCOUNTER FOR SCREENING FOR OTHER VIRAL DISEASES (2) Anoxic brain injury Code(s): G93.1 - ANOXIC BRAIN DAMAGE, NOT ELSEWHERE CLASSIFIED (3) Atrial fibrillation Code(s): I48.91 - UNSPECIFIED ATRIAL FIBRILLATION Qualifiers: Atrial fibrillation type: persistent (4) Chronic respiratory failure Code(s): J96.10 - CHRONIC RESPIRATORY FAILURE, UNSP W HYPOXIA OR HYPERCAPNIA Qualifiers: Respiratory failure complication: unspecified whether with hypoxia or hypercapnia Qualified Code(s): J96.10 - Chronic respiratory failure, unspecified whether with hypoxia or hypercapnia (5) Quadriplegia, functional Code(s): R53.2 - FUNCTIONAL QUADRIPLEGIA (6) Tracheostomy tube present Code(s): Z93.0 - TRACHEOSTOMY STATUS Assessment/Plan ASSESSMENT/PLAN: AFib: rate controlled at present Chronic Respiratory Failure Hematuria UTI Vent dependent Anoxic brain injury Sacral ulcer Functional quadriplegia R.O Covid 19 NEGATIVE Acute Cholecystitis AC Mode of vent Aspiration precautions melissa ALEXANDER
[2019-10-16] MEDS: AMINO ACIDS/PROTEIN HYDROLYS 30 ML LIQUID.PKT PEG SCH ×2 (09:44→17:06)
[2019-10-16] MEDS: levETIRAcetam 500 MG/5 ML ORAL SOLUTION (UNIT-DOSE CUPS) GT SCH (09:44)
[2019-10-16] MEDS: FUROSEMIDE 40 MG/5 ML UNIT-DOSE CUP PO SCH (09:44)
--- NOTE | 2019-10-16 10:40 | PN ---
Progress Note, Physician History of Present Illness: NOT VERBALLY RESPONSIVE BREATHING NON-LABORED AFEBRILE WBC WNL RESISTANT PSEUDOMONAS IN SPUTUM NOTED - Current Medication List Current Medications: Active Medications Acetaminophen (Tylenol -) 500 mg GT Q6H PRN PRN Reason: PAIN LEVEL 4 - 6 Last Admin: 10/09/19 21:43 Dose: 500 mg Documented by: Amino Acids (Prosource No Carb Liquid Pkt) 30 ml PEG BID@0800,1730 [facility] Last Admin: 10/16/19 09:44 Dose: 30 ml Documented by: Artificial Tears (Artificial Tears Ointment -) 1 applic OU Q6H [facility] Last Admin: 10/16/19 05:10 Dose: 1 applic Documented by: Furosemide (Lasix Oral Solution -) 40 mg PO DAILY [facility] Last Admin: 10/16/19 09:44 Dose: 40 mg Documented by: Vancomycin HCl (Vancomycin (Pre-Docked)) 1,000 mg in 250 mls @ 166.667 mls/hr IVPB Q12H [facility]; Protocol Last Admin: 10/15/19 23:22 Dose: 166.667 mls/hr Documented by: Levetiracetam (Keppra Oral Solution -) 500 mg GT BID [facility] Last Admin: 10/16/19 09:44 Dose: 500 mg Documented by: Levothyroxine Sodium (Synthroid -) 150 mcg GT DAILY@0600 [facility] Last Admin: 10/16/19 05:10 Dose: 150 mcg Documented by: Oxycodone HCl (Roxicodone -) 5 mg PO Q6HPO [facility] Last Admin: 10/16/19 05:10 Dose: 5 mg Documented by: Polyethylene Glycol (Miralax (For Daily Use) -) 17 gm PEG DAILY PRN PRN Reason: CONSTIPATION Last Admin: 10/15/19 10:06 Dose: 17 gm Documented by: - Objective Vital Signs: Vital Signs Temperature 97 F L 10/16/19 09:43 Pulse Rate 95 H 10/16/19 09:43 Respiratory Rate 16 10/16/19 09:43 Blood Pressure 93/54 L 10/16/19 09:43 O2 Sat by Pulse Oximetry (%) 100 10/16/19 08:30 Constitutional: Yes: No Distress Cardiovascular: Yes: Regular Rate and Rhythm, S1, S2 Respiratory: Yes: CTA Bilaterally Gastrointestinal: Yes: Normal Bowel Sounds, Soft Edema: Yes Labs: CBC, BMP 10/09/19 13:15 10/09/19 13:15 INR, PTT INR 1.13 (0.83-1.09) H 10/07/19 07:20 Assessment/Plan S/P GROSS HEMATURIA UTI R/O SEPSIS SECONDARY TO UTI RLL PNEUMONIA ? CHRONIC CHOLECYSTITS CHRONIC RESP FAILURE ANOXIC ENCEPHALOPATHY D/C ANTIBIOTICS, OBSERVE OFF CONTACT PRECAUTIONS
--- NOTE | 2019-10-16 11:56 | PN ---
Progress Note, Physician History of Present Illness: 64 y/o male from [facility] with a PMHx of Anoxic Brain Injury (secondary to [place] 05/2017, with a resultant vegetative state), Tracheostomy on vent, HTN, Afib (on Eliquis), Hepatitis C, Quadraplegic. Who presents to the ED for evaluation of hematuria and fever. Patient has an DARREN unable to provide HPI. - Current Medication List Current Medications: Active Medications Acetaminophen (Tylenol -) 500 mg GT Q6H PRN PRN Reason: PAIN LEVEL 4 - 6 Last Admin: 10/09/19 21:43 Dose: 500 mg Documented by: Amino Acids (Prosource No Carb Liquid Pkt) 30 ml PEG BID@0800,1730 [facility] Last Admin: 10/16/19 09:44 Dose: 30 ml Documented by: Artificial Tears (Artificial Tears Ointment -) 1 applic OU Q6H [facility] Last Admin: 10/16/19 05:10 Dose: 1 applic Documented by: Furosemide (Lasix Oral Solution -) 40 mg PO DAILY [facility] Last Admin: 10/16/19 09:44 Dose: 40 mg Documented by: Levetiracetam (Keppra Oral Solution -) 500 mg GT BID [facility] Last Admin: 10/16/19 09:44 Dose: 500 mg Documented by: Levothyroxine Sodium (Synthroid -) 150 mcg GT DAILY@0600 [facility] Last Admin: 10/16/19 05:10 Dose: 150 mcg Documented by: Oxycodone HCl (Roxicodone -) 5 mg PO Q6HPO [facility] Last Admin: 10/16/19 05:10 Dose: 5 mg Documented by: Polyethylene Glycol (Miralax (For Daily Use) -) 17 gm PEG DAILY PRN PRN Reason: CONSTIPATION Last Admin: 10/15/19 10:06 Dose: 17 gm Documented by: - Objective Vital Signs: Vital Signs Temperature 97 F L 10/16/19 09:43 Pulse Rate 95 H 10/16/19 09:43 Respiratory Rate 16 10/16/19 09:43 Blood Pressure 93/54 L 10/16/19 09:43 O2 Sat by Pulse Oximetry (%) 100 10/16/19 08:30 Eyes: Yes: WNL, Conjunctiva Clear, EOM Intact HENT: Yes: WNL, Atraumatic, Normocephalic Neck: Yes: WNL, Supple, Trachea Midline Cardiovascular: Yes: WNL, Regular Rate and Rhythm Respiratory: Yes: Mechanically Ventilated Gastrointestinal: Yes: WNL, Normal Bowel Sounds Genitourinary: Yes: WNL Musculoskeletal: Yes: WNL Extremities: Yes: WNL Edema: No Integumentary: Yes: WNL ...Motor Strength: WNL Psychiatric: Yes: WNL Labs: CBC, BMP 10/09/19 13:15 10/09/19 13:15 INR, PTT INR 1.13 (0.83-1.09) H 10/07/19 07:20
--- NOTE | 2019-10-16 12:47 | DS ---
Physical Examination Vital Signs: Vital Signs Temperature 97 F L 10/16/19 09:43 Pulse Rate 95 H 10/16/19 09:43 Respiratory Rate 16 10/16/19 09:43 Blood Pressure 93/54 L 10/16/19 09:43 O2 Sat by Pulse Oximetry (%) 100 10/16/19 09:00 Constitutional: Yes: No Distress, Calm Cardiovascular: Yes: Regular Rate and Rhythm Respiratory: Yes: Diminished Gastrointestinal: Yes: Normal Bowel Sounds, Soft. No: Tenderness Edema: Yes Labs: CBC, BMP 10/09/19 13:15 10/09/19 13:15 Discharge Summary Problems reviewed: Yes Reason For Visit: HEMATURIA,ATRIAL FIBRILLATION,PULMONARY EDEMA Current Active Problems Acute calculous cholecystitis (Acute) Encounter for screening laboratory testing for COVID-19 virus (Acute) Hematuria (Acute) UTI (urinary tract infection) (Acute) Ventilator associated pneumonia (Acute) Hospital Course: Admitting History and Physical - Primary Care Physician PCP: Danyelle Sheppard - Admission Chief Complaint: Hematuria History of Present Illness: This is a 64 y/o male from [facility] with a PMHx of Anoxic Brain Injury (secondary to [place] 05/2017, with a resultant vegetative state), Tracheostomy on vent, HTN, Afib (on Eliquis), Hepatitis C, Quadraplegic. Who presents to the ED for evaluation of hematuria and fever. HOSPITAL COURSE Eliquis discontinued due to hematuria-- suprapubic changed pancultured-- 10/03/19 06:00 Sputum - Endotrachea Suction/Ventilator Gram Stain - Final 10/03/19 06:00 Sputum - Endotrachea Suction/Ventilator Sputum Culture - Preliminary Pseudomonas Aeruginosa Beta Hemolytic Strep 10/02/19 16:50 Blood - Peripheral Venous Blood Culture - Preliminary NO GROWTH OBTAINED AFTER 48 HOURS, INCUBATION TO CONTINUE FOR 3 DAYS. 10/02/19 16:50 Blood - Peripheral Venous Blood Culture - Preliminary NO GROWTH OBTAINED AFTER 48 HOURS, INCUBATION TO CONTINUE FOR 3 DAYS. 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 per ID He completed his antibiotics and has been afebrile for the past 4 days he is tolerating his GT feeds He has started on laisx via gt due to edema -- decreased free water as well He was found to have acute cholecystits-- managed medically-- not a surgical candidate per surgeon and family has declined percut cholecystostomy tube -- palliative care evaluated pt-- I have spoken to tanja multiple times as well Decision is to make him comfortable I recommend do not hospitalize order --->she is still considering it-- did not make her decision yet--->NEEDS PALLIATIVE CARE EVAL IN NH Pt remains DNR Discontinue Eliquis and all anticoagulants Condition: Stable - Instructions Diet, Activity, Other Instructions: I recommend do not hospitalize order --->Niece is still considering it-- did not make her decision yet--->NEEDS PALLIATIVE CARE EVAL IN NH Pt remains DNR Discontinue Eliquis and all anticoagulants Referrals: Farhan Pan [Primary Care Provider] - Disposition: LONGTERM FACILITY - Home Medications Comprehensive Discharge Medication List: Ambulatory Orders Acetaminophen [Tylenol .Extra-Strength -] 500 mg GT Q6H PRN 07/31/17 Hypromellose 0.5% Opth Soln [Artificial Tears] 1 drop OU QID 07/31/17 Metoprolol Tartrate [Lopressor -] 50 mg GT BID #60 tablet 08/10/17 Amiodarone HCl [Cordarone -] 200 mg GT DAILY 10/24/17 Apixaban [Eliquis -] 5 mg GT BID 10/24/17 Furosemide [Lasix -] 40 mg GT DAILY 10/24/17 Potassium Chloride [Potassium Chloride Oral Liquid] 20 meq GT DAILY 10/24/17 Zinc Oxide 20% Topical Oint 454 gm NR BID PRN 10/24/17 Albuterol 2.5/Ipratropium 0.5 [Duoneb -] 1 amp NEB TID 03/09/18 Ergocalciferol (Vitamin D2) [Calcidol] 6.25 ml PO WEEKLY 03/09/18 Lactobacillus Acidophilus [Bacid -] 1 tab GT BID tab 03/12/18 levETIRAcetam [Keppra Oral Solution -] 500 mg GT BID cup 05/18/18 Amino Acids/Protein Hydrolys [Prosource No Carb Liquid Pkt] 30 ml GT DAILY packet 05/03/19 Digoxin [Lanoxin -] 0.125 mg GT DAILY tablet 05/03/19 Ascorbic Acid [Vitamin C -] 500 mg GT DAILY 07/02/19 Acetaminophen 650 mg PO DAILY PRN 08/09/19 Levothyroxine [Synthroid -] 150 mcg GT DAILY@0600 08/09/19 Acetaminophen [Tylenol .Extra-Strength -] 500 mg NGT Q6H 08/10/19 Calcium Alginate [Matthew] 1 bandage TP DAILY 08/10/19
[2019-10-16 15:37] VITALS: PULSE 85
[2019-10-16 17:26] VITALS: BP 97/60; TEMP 97
== END 2019-10-16 17:47 | DRG 698 ==
LOC: JER 15:34 → JERBED 10-03 00:42 → J5S 10-04 18:26
PROVIDERS: ADMIT Internal Medicine; ATTEND Internal Medicine
PROC: 5A1955Z Respiratory Ventilation, Greater than 96 Consecutive Hours (ICD-10-PCS; principal; 2019-10-07)
DX: T83.518A Infection and inflammatory reaction due to other urinary catheter, initial encounter (principal); R53.2 Functional quadriplegia; I50.23 Acute on chronic systolic (congestive) heart failure; K80.00 Calculus of gallbladder with acute cholecystitis without obstruction; R40.3 Persistent vegetative state; G93.1 Anoxic brain damage, not elsewhere classified; J95.851 Ventilator associated pneumonia; J96.10 Chronic respiratory failure, unspecified whether with hypoxia or hypercapnia; I48.19 Other persistent atrial fibrillation; N39.0 Urinary tract infection, site not specified; Z16.24 Resistance to multiple antibiotics; R31.0 Gross hematuria; E66.9 Obesity, unspecified; Z68.27 Body mass index [BMI] 27.0-27.9, adult; L89.150 Pressure ulcer of sacral region, unstageable; L89.519 Pressure ulcer of right ankle, unspecified stage; R56.9 Unspecified convulsions; D63.8 Anemia in other chronic diseases classified elsewhere; A63.0 Anogenital (venereal) warts; B96.5 Pseudomonas (aeruginosa) (mallei) (pseudomallei) as the cause of diseases classified elsewhere; Z87.891 Personal history of nicotine dependence
CPT/HCPCS: 36415; 71045-TC-FY; 71260-TC; 74178-TC; 76604; 76705-TC; 78226-TC; 80053; 80061; 80162; 81003; 82728; 83036; 83605; 83615; 83690; 83721; 83735; 83880; 84443; 85025; 85610; 86140; 87040; 87070; 87077; 87086; 87184; 87186; 87205; 93005; 93010; 93306-TC; 94002; 94640; 99285-25; A9537; J0131; Q9967; U0003

== ENCOUNTER 2019-12-17 13:48 | Emergency (ER) | payer OTHER ==
--- NOTE | 2019-12-17 14:03 | PDOC ---
History of Present Illness - General Chief Complaint: G Tube Problem Stated Complaint: G TUBE PROBLEM Time Seen by Provider: 12/17/19 14:03 - History of Present Illness Initial Comments: 64 YOM h/o anoxic brain injury in persistent vegitative state requiring mechanical ventilation and feeding tube presents for G tube dislocation since this AM. Per assisted, nurse visited patients room this AM to give morning medications through G tube when patient was found to have tube feeding spilling out of tube site. The nurse reports that she attempted to flush the tube but was unable to. Given her concern that the G tube had been dislodged patient was sent to the ED for evaluation. Past History - Medical History Allergies/Adverse Reactions: Allergies Allergy/AdvReac Type Severity Reaction Status Date / Time No Known Allergies Allergy Verified 10/02/19 15:55 Home Medications: Ambulatory Orders Acetaminophen [Tylenol .Extra-Strength -] 500 mg GT Q6H PRN 07/31/17 Hypromellose 0.5% Opth Soln [Artificial Tears] 1 drop OU QID 07/31/17 Metoprolol Tartrate [Lopressor -] 50 mg GT BID #60 tablet 08/10/17 Furosemide [Lasix -] 40 mg GT DAILY 10/24/17 Potassium Chloride [Potassium Chloride Oral Liquid] 20 meq GT DAILY 10/24/17 Zinc Oxide 20% Topical Oint 454 gm NR BID PRN 10/24/17 Albuterol 2.5/Ipratropium 0.5 [Duoneb -] 1 amp NEB TID 03/09/18 levETIRAcetam [Keppra Oral Solution -] 500 mg GT BID cup 05/18/18 Ascorbic Acid [Vitamin C -] 500 mg GT DAILY 07/02/19 Acetaminophen 650 mg PO DAILY PRN 08/09/19 Levothyroxine [Synthroid -] 150 mcg GT DAILY@0600 08/09/19 Calcium Alginate [Matthew] 1 bandage TP DAILY 08/10/19 Amino Acids/Protein Hydrolys [Prosource No Carb Liquid Pkt] 30 ml PEG BID@0800,1730 #10 packet 10/16/19 Furosemide Oral Solution [Lasix Oral Solution -] 40 mg PO DAILY #20 udc 10/16/19 oxyCODONE HCL [Roxicodone -] 5 mg PO Q6HPO #0 tablet 10/16/19 Anemia: Yes Asthma: No Cancer: Yes (malignant neoplasm of penis, scrotum,) Cardiac Disorders: Yes (RHEUMATIC MITRAL VALVE DISEASE, atrial fibrillation) CVA: No COPD: Yes CHF: Yes Dementia: No Diabetes: No GI Disorders: Yes (gerd) Disorders: No HTN: Yes Hypercholesterolemia: No Kidney Stones: No Liver Disease: No Seizures: Yes (drug related seizure 12/2012) Thyroid Disease: Yes (HYPOTHYROID) - Surgical History Abdominal Surgery: No Appendectomy: No Cardiac Surgery: No Cholecystectomy: No Lung Surgery: No Neurologic Surgery: No Orthopedic Surgery: No - Reproductive History Testicular Surgery: No - Immunization History Immunization Up to Date: Yes (Unkown) - Psycho-Social/Smoking History Smoking History: Unknown if ever smoked Have you smoked in the past 12 months: No If you are a former smoker, when did you quit?: 9 years ago Review of Systems - Review of Systems Able to Perform ROS?: No *Physical Exam - Physical Exam Patient is mechanically ventilated in persistent vegetative state, physical exam is limited by these circumstances. Neck: positive: Other (patient has tracheostomy tube in place) Respiratory/Chest: positive: Lungs Clear, Normal Breath Sounds Cardiovascular: positive: S1, S2, Tachycardia Gastrointestinal/Abdominal: positive: Other (patient has small wound on belly where G tube was formerly in place. ) Medical Decision Making - Medical Decision Making 64 YOM h/o anoxic brain injury in persistent vegitative state requiring mechanical ventilation and feeding tube presents for G tube dislocation since this AM. Per assisted, nurse visited patients room this AM to give morning medications through G tube when patient was found to have tube feeding spilling out of tube site. The nurse reports that she attempted to flush the tube but was unable to. Given her concern that the G tube had been dislodged patient was sent to the ED for evaluation. Patient was persistently tachycardic to the 120s-160s on arrival, O2 sat 100% on mechanical ventilation, pressures wnl. Physical exam limited by patients condition, abdomen has wound where G had been dislodged. ddx: dislodged g tube plan: replace g tube, confirm with imaging reassess: g tube was replaced with assistance of GI, CT confirmed present of G tube in stomach Discharge - Discharge Information Problems reviewed: Yes Clinical Impression/Diagnosis: Dislodged gastrostomy tube Condition: Guarded - Follow up/Referral Referrals: Farhan Pan [Primary Care Provider] - - Patient Discharge Instructions Patient Printed Discharge Instructions: Enteral Feeding Additional Instructions: You were seen in the emergency department for a displaced gastric tube. Your tube was replaced and correct placement was confirmed with CT imaging. Please return if you experience chest pain, shortness of breath, fever, chills, or worsening of your condition. - Post Discharge Activity
[2019-12-17 14:23] VITALS: TEMP 96.5; BMI 32.3
--- NOTE | 2019-12-17 14:54 | PDOC ---
Attending Attestation - Resident Resident Name: Toro Andujar - ED Attending Attestation I have performed the following: I have examined & evaluated the patient, The case was reviewed & discussed with the resident, I agree w/resident's findings & plan - HPI HPI: 12/17/19 14:43 64y/o M h/o anoxic brain injury, vegetative state with PEG presents from [facility] with displaced PEG tube. no other issues. - Physicial Exam PE: 12/17/19 14:43 afebrile, vss nonverbal, vented PEG site with tube displaced, no cellulitis or bleeding. abd benign - Medical Decision Making 12/17/19 14:55 64y/o M with displaced PEG, otherwise afebrile with benign abd exam. unable to pass prior 18fr size. able to pass 14fr with some dilating required. axr confirmation dispo accordingly 12/17/19 16:11 g-tube suspected as not in place. g-tube removed. abd remained benign, no bleeding. IR not immediately available. will consult GI for replacement. if unable, will need obs placement for IR g-tube in AM. Discharge - Discharge Information Problems reviewed: Yes Clinical Impression/Diagnosis: Dislodged gastrostomy tube Condition: Guarded - Follow up/Referral Referrals: Farhan Pan [Primary Care Provider] - - Patient Discharge Instructions - Post Discharge Activity
--- NOTE | 2019-12-17 16:41 | PN ---
Progress Note (short form) - Note Progress Note: 64M with G-Tube that dislodged at his [facility]. Attempted G-Tube replacement in ER. G-Tube study revealed subcutaneous contrast and that contrast was not intraluminal On exam: Involuntary twitching Anicteric Hrt: tachycardic rate, irregular rhythm Lungs: diminished at bases bilaterally with poor insp effort Abd: Previous G-Tube site dressed. a 14Fr. replacement G-tube was introduced through the stoma. There was no resistance. there was then mild resistance and the G-Tube was able to be advanced. There was blood tinged liquid in the G- Tube. Advise: CT scan to assess if G-tube in intraluminal prior use and flushing.
--- NOTE | 2019-12-17 17:55 | PN ---
Progress Note (short form) - Note Progress Note: Upon review of images, G-Tube balloon appears to be intraluminal. Flushes well. 6cc Sterile water instilled into balloon. Await official read prior to use and discharge Aspiration precautions. Flush tube with 30cc water after meds and feeds are given
[2019-12-17 18:56] VITALS: BP 111/83; PULSE 120
[2019-12-17] MEDS ORDERED: ACETAMINOPHEN 650 MG/20.3 ML ORAL SOLUTION (CUPS) GT STA (21:08)
[2019-12-17] MEDS ORDERED: levETIRAcetam 500 MG TABLET (FP) PO STA (21:10)
[2019-12-17] MEDS ORDERED: METOPROLOL TARTRATE 25 MG TABLET (FP) GT STA (21:13)
[2019-12-17] MEDS ORDERED: levETIRAcetam 500 MG TABLET (FP) PO ONE (21:49)
[2019-12-17] MEDS ORDERED: METOPROLOL TARTRATE 25 MG TABLET (FP) ONE (21:49)
[2019-12-17] MEDS ORDERED: ACETAMINOPHEN 650 MG/20.3 ML ORAL SOLUTION (CUPS) ONE (21:51)
== END 2019-12-17 21:50 ==
LOC: JER 13:48
DX: K94.23 Gastrostomy malfunction (principal)
CPT/HCPCS: 74018-TC-FY; 74176-TC; 99284-25

== ENCOUNTER 2020-05-28 13:03 | Inpatient (IN) | payer OTHER ==
[2020-05-28] MEDS ORDERED: ACETAMINOPHEN 1000 MG/100 ML VIAL (NON FORMULARY) IVPB ONE (14:09)
[2020-05-28] MEDS ORDERED: ACETAMINOPHEN INJECTION 100 ML IVPB ONE (14:14)
[2020-05-28] MEDS ORDERED: SODIUM CHLORIDE 1,000 ML IV SCH ×2 (14:15→18:30)
[2020-05-28] MEDS ORDERED: LORazepam 2 MG/ML SDV VIAL IVPUSH ONE (14:34)
[2020-05-28 14:35] LABS: BASO % 0.5 % (0-2.0); EOS % 4.2 % (0-4.5); HEMATOCRIT 31.8 % (35.4-49); HEMOGLOBIN 10.3 GM/dL (11.7-16.9); LYMPH % 12.7 % (8-40); MCH 28.6 pg (25.7-33.7); MCHC 32.5 g/dl (32.0-35.9); MEAN CELL VOLUME 88.1 fl (80-96); MEAN PLT VOLUME 10.3 fl (7.5-11.1); MONO % 7.5 % (3.8-10.2); NEUT % 75.1 % (42.8-82.8); PLATELET COUNT 242 K/MM3 (134-434); RBC 3.61 M/mm3 (4.00-5.60); RDW 17.5 % (11.9-15.9)
[2020-05-28 14:53] LABS: POTASSIUM 4.1 mmol/L (3.5-5.1)
[2020-05-28 14:55] LABS: CALCIUM 8.7 mg/dL (8.5-10.1)
[2020-05-28 14:56] LABS: ALBUMIN 2.8 g/dl (3.4-5.0); BLOOD UREA NITROGEN 35.2 mg/dL (7-18)
[2020-05-28] MEDS ORDERED: LORazepam 2 MG/ML SDV VIAL ONE (14:58)
[2020-05-28 14:59] LABS: CREATININE 0.8 mg/dL (0.55-1.3)
[2020-05-28 15:00] LABS: BILIRUBIN,TOTAL 0.5 mg/dL (0.2-1); TOT PROT 7.5 g/dl (6.4-8.2)
[2020-05-28 15:01] LABS: ACTIVATED PTT 32.9 SECONDS (25.2-36.5)
[2020-05-28 15:06] LABS: INR 1.32 (0.83-1.09); PROTHROMBIN TIME (PATIENT) 16.1 SEC (9.7-13.0)
[2020-05-28] MEDS ORDERED: AMPICILLIN - 2 GM in SODIUM CHLORIDE 100 ML IVPB ONE (15:18)
[2020-05-28] MEDS ORDERED: CEFTRIAXONE 2 GM-D5W BAG 2 GM/50 ML BAG IVPB ONE (15:22)
[2020-05-28] MEDS ORDERED: AMPICILLIN SODIUM 2 GM VIAL ONE (15:23)
[2020-05-28] MEDS ORDERED: VANCOMYCIN HCL 1,500 MG in DEXTROSE 5%-WATER - 500 ML IVPB ONE (15:23)
[2020-05-28] MEDS ORDERED: VANCOMYCIN 500 MG VIAL (RESTRICTED TO ID ONLY) ONE (15:51)
[2020-05-28] MEDS ORDERED: VANCOMYCIN 1 GRAM (PRE-DOCKED) 1,000 MG/250 ML BAG IVPB ONE (15:52)
[2020-05-28] MEDS ORDERED: CEFTRIAXONE 2 GM/100 ML BAG IVPB ONE (15:52)
[2020-05-28] MEDS ORDERED: CEFTRIAXONE 1 GM/50 ML BAG ONE (15:54)
[2020-05-28 16:15] LABS: PH,URINE >= 9.0 (5.0-8.0); URINE APPEARANCE Turbid; URINE BILIRUBIN 3+ (NEGATIVE); URINE COLOR Red; URINE GLUCOSE (UA) 1+ (NEGATIVE); URINE KETONE 2+ (NEGATIVE); URINE LEUK ESTERASE 3+ (NEGATIVE); URINE NITRITE Positive (NEGATIVE); URINE PROTEIN 3+ (NEGATIVE); URINE UROBILINOGEN >=8.0 E.U./dl mg/dL (0.2-1.0)
[2020-05-28] MEDS ORDERED: levETIRAcetam 500 MG TABLET (FP) PO ONE (17:39)
[2020-05-28 18:06] LABS: URINE RBC >100 /uL (0-23.9); URINE WBC 0-3 /uL (0-25.8)
[2020-05-28 18:07] LABS: EPI CELLS 0-3 /uL (0-25.1); URINE BACTERIA FEW /uL (0-1359)
[2020-05-28] MEDS ORDERED: levETIRAcetam 500 MG/5 ML ORAL SOLUTION (UNIT-DOSE CUPS) GT ONE (18:08)
[2020-05-28] MEDS ORDERED: ACETAMINOPHEN 1000 MG/100 ML VIAL (NON FORMULARY) IVPB PRN (18:34)
[2020-05-28] MEDS ORDERED: PIPERACILLIN/TAZOB 3.375 GM 3.375 GM/50 ML BAG IVPB ONE (20:06)
[2020-05-28] MEDS: SODIUM CHLORIDE 1,000 ML IV SCH (20:26)
[2020-05-28] MEDS: PIPERACILLIN/TAZOB 3.375 GM 3.375 GM in DEXTROSE 5%-WATER - 50 ML IVPB SCH (20:26)
[2020-05-29] MEDS ORDERED: ACETAMINOPHEN 500 MG TABLET (FP) GT PRN (01:01)
[2020-05-29] MEDS ORDERED: DIGOXIN 0.125 MG TABLET (FP) ONE (01:13)
[2020-05-29] MEDS: DIGOXIN 0.125 MG TABLET (FP) GT ONE ×2 (01:23→03:09)
[2020-05-29] MEDS ORDERED: PIPERACILLIN/TAZOB 3.375 GM 3.375 GM/50 ML BAG IVPB ONE ×3 (03:02→17:44)
[2020-05-29] MEDS: PIPERACILLIN/TAZOB 3.375 GM 3.375 GM in DEXTROSE 5%-WATER - 50 ML IVPB SCH ×4 (03:03→18:00)
[2020-05-29 06:49] LABS: EOS % 7.4 % (0-4.5); HEMATOCRIT 27.3 % (35.4-49); HEMOGLOBIN 8.8 GM/dL (11.7-16.9); LYMPH % 18.1 % (8-40); MCH 28.8 pg (25.7-33.7); MCHC 32.1 g/dl (32.0-35.9); MEAN CELL VOLUME 89.5 fl (80-96); MEAN PLT VOLUME 10.7 fl (7.5-11.1); MONO % 10.4 % (3.8-10.2); NEUT % 63.1 % (42.8-82.8); PLATELET COUNT 184 K/MM3 (134-434); RBC 3.05 M/mm3 (4.00-5.60); RDW 17.3 % (11.9-15.9); WHITE BLOOD COUNT 5.7 K/mm3 (4.0-10.0)
[2020-05-29] MEDS ORDERED: VANCOMYCIN HCL 1,500 MG in DEXTROSE 5%-WATER - 250 ML IVPB SCH (07:00)
[2020-05-29] MEDS ORDERED: LEVOTHYROXINE NA 25 MCG TABLET (FP) PEG SCH (07:00)
[2020-05-29 07:08] LABS: POTASSIUM 3.9 mmol/L (3.5-5.1)
[2020-05-29 07:10] LABS: ALBUMIN 2.5 g/dl (3.4-5.0); CALCIUM 8.2 mg/dL (8.5-10.1)
[2020-05-29 07:11] LABS: BLOOD UREA NITROGEN 29.1 mg/dL (7-18); MAGNESIUM 2.2 mg/dL (1.8-2.4)
[2020-05-29 07:14] LABS: CREATININE 0.6 mg/dL (0.55-1.3); PHOSPHOROUS 3.1 mg/dL (2.5-4.9)
[2020-05-29 07:15] LABS: BILIRUBIN,TOTAL 0.7 mg/dL (0.2-1); TOT PROT 6.7 g/dl (6.4-8.2)
[2020-05-29] MEDS: LEVOTHYROXINE PEG SCH (07:15)
[2020-05-29] MEDS: VANCOMYCIN HCL 1,500 MG in DEXTROSE 5%-WATER - 500 ML IVPB SCH ×2 (07:15→19:27)
[2020-05-29] MEDS: DIGOXIN 250 MCG/5 ML LIQUID PEG SCH (10:15)
[2020-05-29] MEDS: levETIRAcetam 500 MG/5 ML ORAL SOLUTION (UNIT-DOSE CUPS) GT SCH ×2 (10:15→23:00)
[2020-05-29] MEDS: clonazePAM 0.5 MG TABLET PEG SCH ×2 (10:42→22:17)
[2020-05-29] MEDS: METOPROLOL TARTRATE 25 MG TABLET (FP) GT SCH (10:42)
[2020-05-29] MEDS: SODIUM CHLORIDE 1,000 ML IV SCH (18:30)
[2020-05-29 19:41] LABS: N-TERMINAL BNP 540.5 pg/ml (5-125)
[2020-05-29] MEDS ORDERED: PT OWN MED DRAWER 7, Y5N ONE (22:10)
[2020-05-29] MEDS ORDERED: clonazePAM 0.5 MG TABLET ONE (22:12)
[2020-05-30] MEDS: METOPROLOL TARTRATE 25 MG TABLET (FP) GT SCH ×3 (01:58→22:49)
[2020-05-30] MEDS ORDERED: PIPERACILLIN/TAZOB 3.375 GM 3.375 GM/50 ML BAG IVPB ONE ×2 (02:22→09:41)
[2020-05-30] MEDS: PIPERACILLIN/TAZOB 3.375 GM 3.375 GM in DEXTROSE 5%-WATER - 50 ML IVPB SCH ×3 (02:33→18:46)
[2020-05-30] MEDS ORDERED: LEVOTHYROXINE NA 25 MCG TABLET (FP) ONE (08:09)
[2020-05-30] MEDS: LEVOTHYROXINE PEG SCH (08:14)
[2020-05-30] MEDS: clonazePAM 0.5 MG TABLET PEG SCH ×2 (10:21→22:49)
[2020-05-30] MEDS: DIGOXIN 250 MCG/5 ML LIQUID PEG SCH (10:21)
[2020-05-30] MEDS: levETIRAcetam 500 MG/5 ML ORAL SOLUTION (UNIT-DOSE CUPS) GT SCH ×2 (10:21→22:53)
[2020-05-30 12:17] LABS: BASO % 0.6 % (0-2.0); EOS % 11.4 % (0-4.5); HEMATOCRIT 24.6 % (35.4-49); HEMOGLOBIN 7.9 GM/dL (11.7-16.9); LYMPH % 15.7 % (8-40); MCH 28.7 pg (25.7-33.7); MCHC 32.3 g/dl (32.0-35.9); MEAN PLT VOLUME 10.5 fl (7.5-11.1); MONO % 8.7 % (3.8-10.2); NEUT % 63.6 % (42.8-82.8); PLATELET COUNT 169 K/MM3 (134-434); RBC 2.76 M/mm3 (4.00-5.60); RDW 17.1 % (11.9-15.9); WHITE BLOOD COUNT 4.9 K/mm3 (4.0-10.0)
[2020-05-30 12:45] LABS: POTASSIUM 3.1 mmol/L (3.5-5.1)
[2020-05-30 12:58] LABS: CALCIUM 8.2 mg/dL (8.5-10.1)
[2020-05-30 12:59] LABS: ALBUMIN 2.5 g/dl (3.4-5.0)
[2020-05-30 13:03] LABS: CREATININE 0.6 mg/dL (0.55-1.3)
[2020-05-30 13:04] LABS: BILIRUBIN,TOTAL 0.6 mg/dL (0.2-1)
[2020-05-30 13:06] LABS: TOT PROT 6.5 g/dl (6.4-8.2)
[2020-05-30] MEDS ORDERED: PIPERACILLIN/TAZOBACTAM 3.375 GM VIAL IVPB ONE (17:54)
[2020-05-30] MEDS ORDERED: DEXTROSE 5%-WATER - 50 ML IVPB ONE (17:54)
[2020-05-30] MEDS ORDERED: POTASSIUM CHLORIDE ORAL LIQUID 20 MEQ/15 ML GT ONE (18:24)
[2020-05-30] MEDS: COLLAGENASE CLOSTRIDIUM HIST. 30 GRAMS TUBE TP SCH (18:45)
[2020-05-30 18:53] LABS: BASO % 0.4 % (0-2.0); EOS % 9.2 % (0-4.5); LYMPH % 17.4 % (8-40); MCH 28.7 pg (25.7-33.7); MEAN CELL VOLUME 89.6 fl (80-96); MEAN PLT VOLUME 10.5 fl (7.5-11.1); MONO % 14.1 % (3.8-10.2); NEUT % 58.9 % (42.8-82.8); PLATELET COUNT 165 K/MM3 (134-434); RBC 3.13 M/mm3 (4.00-5.60); RDW 17.4 % (11.9-15.9); WHITE BLOOD COUNT 6.2 K/mm3 (4.0-10.0)
[2020-05-30] MEDS ORDERED: VANCOMYCIN/WATER BAGS 1,250 MG/250 ML BAG IVPB SCH (20:00)
[2020-05-30] MEDS ORDERED: PT OWN MED DRAWER 7, Y5N ONE (23:03)
[2020-05-31] MEDS ORDERED: DEXTROSE 5%-WATER - 50 ML IVPB ONE ×3 (01:37→18:16)
[2020-05-31] MEDS ORDERED: PIPERACILLIN/TAZOBACTAM 3.375 GM VIAL IVPB ONE ×3 (01:37→18:16)
[2020-05-31] MEDS: PIPERACILLIN/TAZOB 3.375 GM 3.375 GM in DEXTROSE 5%-WATER - 50 ML IVPB SCH ×5 (01:52→18:20)
[2020-05-31] MEDS ORDERED: LEVOTHYROXINE NA 25 MCG TABLET (FP) ONE (06:03)
[2020-05-31] MEDS ORDERED: LEVOTHYROXINE NA 150 MCG TABLET ONE (06:03)
[2020-05-31] MEDS: LEVOTHYROXINE PEG SCH (06:09)
[2020-05-31] MEDS ORDERED: PT OWN MED DRAWER 7, Y5N ONE ×2 (09:55→22:08)
[2020-05-31] MEDS: levETIRAcetam 500 MG/5 ML ORAL SOLUTION (UNIT-DOSE CUPS) GT SCH ×2 (09:58→21:43)
[2020-05-31] MEDS: clonazePAM 0.5 MG TABLET PEG SCH ×2 (09:58→21:43)
[2020-05-31] MEDS: DIGOXIN 250 MCG/5 ML LIQUID PEG SCH (09:59)
[2020-05-31] MEDS: METOPROLOL TARTRATE 25 MG TABLET (FP) GT SCH ×2 (10:00→21:43)
[2020-05-31] MEDS: COLLAGENASE CLOSTRIDIUM HIST. 30 GRAMS TUBE TP SCH (10:01)
[2020-05-31 13:01] LABS: BASO % 0.5 % (0-2.0); EOS % 6.4 % (0-4.5); HEMATOCRIT 25.5 % (35.4-49); HEMOGLOBIN 8.3 GM/dL (11.7-16.9); LYMPH % 11.7 % (8-40); MCH 29.1 pg (25.7-33.7); MCHC 32.4 g/dl (32.0-35.9); MEAN CELL VOLUME 89.7 fl (80-96); MEAN PLT VOLUME 10.7 fl (7.5-11.1); MONO % 8.4 % (3.8-10.2); PLATELET COUNT 181 K/MM3 (134-434); RBC 2.84 M/mm3 (4.00-5.60); RDW 17.5 % (11.9-15.9); WHITE BLOOD COUNT 6.8 K/mm3 (4.0-10.0)
[2020-05-31 13:08] LABS: POTASSIUM 3.6 mmol/L (3.5-5.1)
[2020-05-31 13:13] LABS: CALCIUM 8.6 mg/dL (8.5-10.1)
[2020-05-31 13:15] LABS: ALBUMIN 2.4 g/dl (3.4-5.0); BLOOD UREA NITROGEN 17.2 mg/dL (7-18); MAGNESIUM 2.2 mg/dL (1.8-2.4)
[2020-05-31 13:17] LABS: CREATININE 0.6 mg/dL (0.55-1.3)
[2020-05-31 13:20] LABS: BILIRUBIN,TOTAL 0.5 mg/dL (0.2-1); TOT PROT 6.5 g/dl (6.4-8.2)
[2020-06-01] MEDS ORDERED: PIPERACILLIN/TAZOBACTAM 3.375 GM VIAL IVPB ONE ×3 (01:17→17:23)
[2020-06-01] MEDS ORDERED: DEXTROSE 5%-WATER - 50 ML IVPB ONE ×3 (01:18→17:23)
[2020-06-01] MEDS: PIPERACILLIN/TAZOB 3.375 GM 3.375 GM in DEXTROSE 5%-WATER - 50 ML IVPB SCH ×3 (01:50→17:27)
[2020-06-01] MEDS ORDERED: LEVOTHYROXINE NA 150 MCG TABLET ONE (05:56)
[2020-06-01] MEDS ORDERED: LEVOTHYROXINE NA 25 MCG TABLET (FP) ONE (05:56)
[2020-06-01] MEDS: LEVOTHYROXINE PEG SCH (06:00)
[2020-06-01] MEDS ORDERED: PT OWN MED DRAWER 7, Y5N ONE (10:01)
[2020-06-01] MEDS: levETIRAcetam 500 MG/5 ML ORAL SOLUTION (UNIT-DOSE CUPS) GT SCH ×2 (10:04→21:15)
[2020-06-01] MEDS: DIGOXIN 250 MCG/5 ML LIQUID PEG SCH (10:04)
[2020-06-01] MEDS: clonazePAM 0.5 MG TABLET PEG SCH ×2 (10:04→21:15)
[2020-06-01] MEDS: METOPROLOL TARTRATE 25 MG TABLET (FP) GT SCH ×3 (10:04→22:01)
[2020-06-01] MEDS: COLLAGENASE CLOSTRIDIUM HIST. 30 GRAMS TUBE TP SCH (10:05)
[2020-06-01 11:09] LABS: BASO % 0.4 % (0-2.0); EOS % 8.9 % (0-4.5); HEMATOCRIT 24.4 % (35.4-49); HEMOGLOBIN 7.9 GM/dL (11.7-16.9); LYMPH % 18.4 % (8-40); MCH 28.8 pg (25.7-33.7); MCHC 32.5 g/dl (32.0-35.9); MEAN CELL VOLUME 88.5 fl (80-96); MEAN PLT VOLUME 10.3 fl (7.5-11.1); NEUT % 65.3 % (42.8-82.8); PLATELET COUNT 180 K/MM3 (134-434); RBC 2.76 M/mm3 (4.00-5.60); RDW 17.9 % (11.9-15.9); WHITE BLOOD COUNT 5.1 K/mm3 (4.0-10.0)
[2020-06-01 11:15] LABS: POTASSIUM 3.5 mmol/L (3.5-5.1)
[2020-06-01 11:21] LABS: CALCIUM 8.5 mg/dL (8.5-10.1)
[2020-06-01 11:22] LABS: ALBUMIN 2.4 g/dl (3.4-5.0); BLOOD UREA NITROGEN 19.8 mg/dL (7-18)
[2020-06-01 11:23] LABS: MAGNESIUM 2.1 mg/dL (1.8-2.4)
[2020-06-01 11:25] LABS: CREATININE 0.5 mg/dL (0.55-1.3)
[2020-06-01 11:27] LABS: TOT PROT 6.4 g/dl (6.4-8.2)
[2020-06-01 11:28] LABS: BILIRUBIN,TOTAL 0.3 mg/dL (0.2-1)
[2020-06-01] MEDS: ARTIFICIAL TEARS (POLYVINYL ALCOHOL) OPTH DROPS OU SCH ×2 (17:27→21:39)
[2020-06-02] MEDS ORDERED: PIPERACILLIN/TAZOBACTAM 3.375 GM VIAL IVPB ONE ×4 (01:10→18:31)
[2020-06-02] MEDS ORDERED: DEXTROSE 5%-WATER - 50 ML IVPB ONE ×4 (01:10→18:32)
[2020-06-02] MEDS: PIPERACILLIN/TAZOB 3.375 GM 3.375 GM in DEXTROSE 5%-WATER - 50 ML IVPB SCH ×3 (01:26→18:33)
[2020-06-02] MEDS ORDERED: LEVOTHYROXINE NA 150 MCG TABLET ONE (05:05)
[2020-06-02] MEDS ORDERED: LEVOTHYROXINE NA 25 MCG TABLET (FP) ONE (05:05)
[2020-06-02] MEDS: LEVOTHYROXINE PEG SCH (06:02)
[2020-06-02 09:31] LABS: BASO % 0.5 % (0-2.0); EOS % 6.4 % (0-4.5); HEMATOCRIT 23.1 % (35.4-49); HEMOGLOBIN 7.5 GM/dL (11.7-16.9); MCH 29.2 pg (25.7-33.7); MCHC 32.3 g/dl (32.0-35.9); MEAN CELL VOLUME 90.1 fl (80-96); MEAN PLT VOLUME 10.4 fl (7.5-11.1); MONO % 7.9 % (3.8-10.2); NEUT % 60.2 % (42.8-82.8); PLATELET COUNT 162 K/MM3 (134-434); RBC 2.56 M/mm3 (4.00-5.60); RDW 17.9 % (11.9-15.9)
[2020-06-02 09:39] LABS: POTASSIUM 3.8 mmol/L (3.5-5.1)
[2020-06-02 09:56] LABS: ALBUMIN 2.4 g/dl (3.4-5.0); BLOOD UREA NITROGEN 22.3 mg/dL (7-18); CALCIUM 8.5 mg/dL (8.5-10.1)
[2020-06-02 09:57] LABS: MAGNESIUM 2.3 mg/dL (1.8-2.4)
[2020-06-02] MEDS: levETIRAcetam 500 MG/5 ML ORAL SOLUTION (UNIT-DOSE CUPS) GT SCH ×2 (09:59→21:05)
[2020-06-02] MEDS: clonazePAM 0.5 MG TABLET PEG SCH ×2 (09:59→21:05)
[2020-06-02 10:00] LABS: BILIRUBIN,TOTAL 0.2 mg/dL (0.2-1); CREATININE 0.6 mg/dL (0.55-1.3); TOT PROT 6.4 g/dl (6.4-8.2)
[2020-06-02] MEDS: METOPROLOL TARTRATE 25 MG TABLET (FP) GT SCH ×2 (10:00→21:06)
[2020-06-02] MEDS: COLLAGENASE CLOSTRIDIUM HIST. 30 GRAMS TUBE TP SCH (10:02)
[2020-06-02] MEDS: ARTIFICIAL TEARS (POLYVINYL ALCOHOL) OPTH DROPS OU SCH ×4 (10:03→21:05)
[2020-06-02] MEDS: DIGOXIN 250 MCG/5 ML LIQUID PEG SCH (10:20)
[2020-06-03] MEDS ORDERED: DEXTROSE 5%-WATER - 50 ML IVPB ONE ×3 (01:13→17:40)
[2020-06-03] MEDS ORDERED: PIPERACILLIN/TAZOBACTAM 3.375 GM VIAL IVPB ONE ×3 (01:13→17:39)
[2020-06-03] MEDS: PIPERACILLIN/TAZOB 3.375 GM 3.375 GM in DEXTROSE 5%-WATER - 50 ML IVPB SCH ×3 (02:15→17:54)
[2020-06-03] MEDS ORDERED: LEVOTHYROXINE NA 150 MCG TABLET ONE (04:57)
[2020-06-03] MEDS ORDERED: LEVOTHYROXINE NA 25 MCG TABLET (FP) ONE (04:57)
[2020-06-03] MEDS: LEVOTHYROXINE PEG SCH (06:02)
[2020-06-03 09:32] LABS: BASO % 0.7 % (0-2.0); EOS % 5.7 % (0-4.5); HEMATOCRIT 21.9 % (35.4-49); HEMOGLOBIN 7.1 GM/dL (11.7-16.9); LYMPH % 26.9 % (8-40); MCHC 32.5 g/dl (32.0-35.9); MEAN CELL VOLUME 89.2 fl (80-96); MEAN PLT VOLUME 10.4 fl (7.5-11.1); NEUT % 58.7 % (42.8-82.8); PLATELET COUNT 153 K/MM3 (134-434); RBC 2.46 M/mm3 (4.00-5.60); RDW 17.7 % (11.9-15.9); WHITE BLOOD COUNT 4.7 K/mm3 (4.0-10.0)
[2020-06-03] MEDS ORDERED: PT OWN MED DRAWER 7, Y5N ONE (10:07)
[2020-06-03] MEDS: LISINOPRIL 5 MG TABLET PO SCH (10:14)
[2020-06-03] MEDS: METOPROLOL TARTRATE 25 MG TABLET (FP) GT SCH ×2 (10:15→22:03)
[2020-06-03] MEDS: levETIRAcetam 500 MG/5 ML ORAL SOLUTION (UNIT-DOSE CUPS) GT SCH ×2 (10:15→22:03)
[2020-06-03] MEDS: ARTIFICIAL TEARS (POLYVINYL ALCOHOL) OPTH DROPS OU SCH ×4 (10:15→22:03)
[2020-06-03] MEDS: clonazePAM 0.5 MG TABLET PEG SCH ×2 (10:15→22:03)
[2020-06-03] MEDS: COLLAGENASE CLOSTRIDIUM HIST. 30 GRAMS TUBE TP SCH (10:16)
[2020-06-03] MEDS: DIGOXIN 250 MCG/5 ML LIQUID PEG SCH (10:16)
[2020-06-03 10:29] LABS: ALBUMIN 2.4 g/dl (3.4-5.0); BLOOD UREA NITROGEN 24.3 mg/dL (7-18); CALCIUM 8.7 mg/dL (8.5-10.1)
[2020-06-03 10:30] LABS: MAGNESIUM 2.2 mg/dL (1.8-2.4)
[2020-06-03 10:32] LABS: CREATININE 0.6 mg/dL (0.55-1.3)
[2020-06-03 10:34] LABS: TOT PROT 6.5 g/dl (6.4-8.2)
[2020-06-03 10:37] LABS: BILIRUBIN,TOTAL 0.5 mg/dL (0.2-1)
[2020-06-04] MEDS ORDERED: DEXTROSE 5%-WATER - 50 ML IVPB ONE ×3 (01:30→18:58)
[2020-06-04] MEDS ORDERED: PIPERACILLIN/TAZOBACTAM 3.375 GM VIAL IVPB ONE ×3 (01:30→18:57)
[2020-06-04] MEDS: PIPERACILLIN/TAZOB 3.375 GM 3.375 GM in DEXTROSE 5%-WATER - 50 ML IVPB SCH ×3 (02:04→19:03)
[2020-06-04] MEDS ORDERED: LEVOTHYROXINE NA 25 MCG TABLET (FP) ONE (06:09)
[2020-06-04] MEDS ORDERED: LEVOTHYROXINE NA 150 MCG TABLET ONE (06:10)
[2020-06-04] MEDS: LEVOTHYROXINE PEG SCH (06:41)
[2020-06-04 09:18] LABS: BASO % 0.8 % (0-2.0); EOS % 6.3 % (0-4.5); HEMATOCRIT 23.9 % (35.4-49); HEMOGLOBIN 7.6 GM/dL (11.7-16.9); LYMPH % 22.1 % (8-40); MCH 28.7 pg (25.7-33.7); MCHC 31.9 g/dl (32.0-35.9); MEAN CELL VOLUME 89.9 fl (80-96); MEAN PLT VOLUME 10.3 fl (7.5-11.1); MONO % 8.7 % (3.8-10.2); NEUT % 62.1 % (42.8-82.8); PLATELET COUNT 160 K/MM3 (134-434); RBC 2.65 M/mm3 (4.00-5.60); RDW 17.1 % (11.9-15.9); WHITE BLOOD COUNT 5.1 K/mm3 (4.0-10.0)
[2020-06-04 09:39] LABS: POTASSIUM 4.2 mmol/L (3.5-5.1)
[2020-06-04 09:50] LABS: ALBUMIN 2.4 g/dl (3.4-5.0)
[2020-06-04 09:51] LABS: BLOOD UREA NITROGEN 23.7 mg/dL (7-18); CALCIUM 8.7 mg/dL (8.5-10.1)
[2020-06-04 09:52] LABS: MAGNESIUM 2.2 mg/dL (1.8-2.4)
[2020-06-04 09:55] LABS: CREATININE 0.6 mg/dL (0.55-1.3)
[2020-06-04 09:56] LABS: TOT PROT 6.7 g/dl (6.4-8.2)
[2020-06-04 09:59] LABS: BILIRUBIN,TOTAL 0.2 mg/dL (0.2-1)
[2020-06-04] MEDS: ARTIFICIAL TEARS (POLYVINYL ALCOHOL) OPTH DROPS OU SCH ×4 (11:34→22:19)
[2020-06-04] MEDS: levETIRAcetam 500 MG/5 ML ORAL SOLUTION (UNIT-DOSE CUPS) GT SCH ×2 (11:34→22:19)
[2020-06-04] MEDS: clonazePAM 0.5 MG TABLET PEG SCH ×2 (11:35→22:19)
[2020-06-04] MEDS: LISINOPRIL 5 MG TABLET PO SCH (11:35)
[2020-06-04] MEDS: METOPROLOL TARTRATE 25 MG TABLET (FP) GT SCH ×2 (11:36→22:19)
[2020-06-04] MEDS: COLLAGENASE CLOSTRIDIUM HIST. 30 GRAMS TUBE TP SCH (11:37)
[2020-06-04] MEDS: DIGOXIN 250 MCG/5 ML LIQUID PEG SCH (11:47)
[2020-06-04 14:34] VITALS: BMI 39.7
[2020-06-05] MEDS ORDERED: PIPERACILLIN/TAZOBACTAM 3.375 GM VIAL IVPB ONE ×3 (01:08→18:12)
[2020-06-05] MEDS ORDERED: DEXTROSE 5%-WATER - 50 ML IVPB ONE ×3 (01:09→18:12)
[2020-06-05] MEDS: PIPERACILLIN/TAZOB 3.375 GM 3.375 GM in DEXTROSE 5%-WATER - 50 ML IVPB SCH ×3 (01:22→18:22)
[2020-06-05] MEDS ORDERED: LEVOTHYROXINE NA 150 MCG TABLET ONE (06:06)
[2020-06-05] MEDS ORDERED: LEVOTHYROXINE NA 25 MCG TABLET (FP) ONE (06:06)
[2020-06-05] MEDS: LEVOTHYROXINE PEG SCH (06:08)
[2020-06-05 08:38] LABS: BASO % 0.6 % (0-2.0); EOS % 6.9 % (0-4.5); HEMATOCRIT 24.8 % (35.4-49); HEMOGLOBIN 7.9 GM/dL (11.7-16.9); LYMPH % 25.9 % (8-40); MCH 28.5 pg (25.7-33.7); MCHC 31.9 g/dl (32.0-35.9); MEAN CELL VOLUME 89.5 fl (80-96); MEAN PLT VOLUME 9.8 fl (7.5-11.1); MONO % 6.2 % (3.8-10.2); NEUT % 60.4 % (42.8-82.8); PLATELET COUNT 160 K/MM3 (134-434); RBC 2.77 M/mm3 (4.00-5.60); WHITE BLOOD COUNT 4.7 K/mm3 (4.0-10.0)
[2020-06-05] MEDS: AMINO ACIDS/PROTEIN HYDROLYS 30 ML LIQUID.PKT PEG SCH (08:39)
[2020-06-05 09:02] LABS: POTASSIUM 4.2 mmol/L (3.5-5.1)
[2020-06-05 09:17] LABS: ALBUMIN 2.4 g/dl (3.4-5.0); CALCIUM 8.4 mg/dL (8.5-10.1); MAGNESIUM 2.2 mg/dL (1.8-2.4)
[2020-06-05 09:18] LABS: BLOOD UREA NITROGEN 24.1 mg/dL (7-18)
[2020-06-05 09:21] LABS: CREATININE 0.6 mg/dL (0.55-1.3)
[2020-06-05 09:22] LABS: BILIRUBIN,TOTAL 0.3 mg/dL (0.2-1); TOT PROT 6.9 g/dl (6.4-8.2)
[2020-06-05] MEDS ORDERED: PT OWN MED DRAWER 7, Y5N ONE (11:59)
[2020-06-05] MEDS: LISINOPRIL 5 MG TABLET PO SCH (12:14)
[2020-06-05] MEDS: METOPROLOL TARTRATE 25 MG TABLET (FP) GT SCH ×2 (12:14→21:53)
[2020-06-05] MEDS: MULTIVIT-MINERALS ORAL LIQUID PEG SCH (12:15)
[2020-06-05] MEDS: levETIRAcetam 500 MG/5 ML ORAL SOLUTION (UNIT-DOSE CUPS) GT SCH ×2 (12:15→21:53)
[2020-06-05] MEDS: DIGOXIN 250 MCG/5 ML LIQUID PEG SCH (12:16)
[2020-06-05] MEDS: COLLAGENASE CLOSTRIDIUM HIST. 30 GRAMS TUBE TP SCH (12:17)
[2020-06-05] MEDS: ARTIFICIAL TEARS (POLYVINYL ALCOHOL) OPTH DROPS OU SCH ×4 (12:17→21:54)
[2020-06-05] MEDS ORDERED: clonazePAM 0.5 MG TABLET GT PRN (23:06)
[2020-06-06] MEDS ORDERED: PIPERACILLIN/TAZOBACTAM 3.375 GM VIAL IVPB ONE ×3 (00:58→17:17)
[2020-06-06] MEDS ORDERED: DEXTROSE 5%-WATER - 50 ML IVPB ONE ×3 (00:59→17:17)
[2020-06-06] MEDS: PIPERACILLIN/TAZOB 3.375 GM 3.375 GM in DEXTROSE 5%-WATER - 50 ML IVPB SCH ×3 (01:30→17:57)
[2020-06-06] MEDS ORDERED: LEVOTHYROXINE NA 25 MCG TABLET (FP) ONE (06:41)
[2020-06-06] MEDS ORDERED: LEVOTHYROXINE NA 150 MCG TABLET ONE (06:42)
[2020-06-06] MEDS: LEVOTHYROXINE PEG SCH (06:44)
[2020-06-06] MEDS ORDERED: PT OWN MED DRAWER 7, Y5N ONE (08:55)
[2020-06-06] MEDS: METOPROLOL TARTRATE 25 MG TABLET (FP) GT SCH ×2 (09:02→21:12)
[2020-06-06] MEDS: levETIRAcetam 500 MG/5 ML ORAL SOLUTION (UNIT-DOSE CUPS) GT SCH ×2 (09:02→21:12)
[2020-06-06] MEDS: LISINOPRIL 5 MG TABLET PO SCH (09:02)
[2020-06-06] MEDS: MULTIVIT-MINERALS ORAL LIQUID PEG SCH (09:03)
[2020-06-06] MEDS: AMINO ACIDS/PROTEIN HYDROLYS 30 ML LIQUID.PKT PEG SCH (09:03)
[2020-06-06] MEDS: ARTIFICIAL TEARS (POLYVINYL ALCOHOL) OPTH DROPS OU SCH ×4 (09:03→21:12)
[2020-06-06] MEDS: COLLAGENASE CLOSTRIDIUM HIST. 30 GRAMS TUBE TP SCH (09:04)
[2020-06-06] MEDS: DIGOXIN 250 MCG/5 ML LIQUID PEG SCH (09:05)
[2020-06-06 11:06] LABS: POTASSIUM 4.2 mmol/L (3.5-5.1)
[2020-06-06 11:11] LABS: ALBUMIN 2.4 g/dl (3.4-5.0); BLOOD UREA NITROGEN 25.8 mg/dL (7-18); CALCIUM 8.6 mg/dL (8.5-10.1); MAGNESIUM 2.2 mg/dL (1.8-2.4)
[2020-06-06 11:13] LABS: CREATININE 0.6 mg/dL (0.55-1.3)
[2020-06-06 11:15] LABS: BILIRUBIN,TOTAL 0.3 mg/dL (0.2-1); TOT PROT 6.8 g/dl (6.4-8.2)
[2020-06-06 12:10] LABS: BASO % 0.5 % (0-2.0); EOS % 7.6 % (0-4.5); HEMATOCRIT 23.9 % (35.4-49); HEMOGLOBIN 7.5 GM/dL (11.7-16.9); LYMPH % 19.5 % (8-40); MCH 28.2 pg (25.7-33.7); MCHC 31.4 g/dl (32.0-35.9); MEAN CELL VOLUME 89.7 fl (80-96); MEAN PLT VOLUME 10.6 fl (7.5-11.1); MONO % 6.3 % (3.8-10.2); NEUT % 66.1 % (42.8-82.8); PLATELET COUNT 166 K/MM3 (134-434); RBC 2.66 M/mm3 (4.00-5.60); RDW 17.4 % (11.9-15.9); WHITE BLOOD COUNT 5.6 K/mm3 (4.0-10.0)
[2020-06-07] MEDS ORDERED: DEXTROSE 5%-WATER - 50 ML IVPB ONE ×3 (00:50→18:17)
[2020-06-07] MEDS ORDERED: PIPERACILLIN/TAZOBACTAM 3.375 GM VIAL IVPB ONE ×3 (00:50→18:17)
[2020-06-07] MEDS: PIPERACILLIN/TAZOB 3.375 GM 3.375 GM in DEXTROSE 5%-WATER - 50 ML IVPB SCH ×3 (01:20→18:29)
[2020-06-07] MEDS ORDERED: LEVOTHYROXINE NA 25 MCG TABLET (FP) ONE (05:08)
[2020-06-07] MEDS ORDERED: LEVOTHYROXINE NA 150 MCG TABLET ONE (05:09)
[2020-06-07] MEDS: LEVOTHYROXINE PEG SCH (06:00)
[2020-06-07] MEDS ORDERED: PT OWN MED DRAWER 7, Y5N ONE (08:45)
[2020-06-07] MEDS: AMINO ACIDS/PROTEIN HYDROLYS 30 ML LIQUID.PKT PEG SCH (08:48)
[2020-06-07] MEDS: ARTIFICIAL TEARS (POLYVINYL ALCOHOL) OPTH DROPS OU SCH ×4 (09:02→23:54)
[2020-06-07] MEDS: METOPROLOL TARTRATE 25 MG TABLET (FP) GT SCH ×2 (09:03→21:49)
[2020-06-07] MEDS: LISINOPRIL 5 MG TABLET PO SCH (09:03)
[2020-06-07] MEDS: levETIRAcetam 500 MG/5 ML ORAL SOLUTION (UNIT-DOSE CUPS) GT SCH ×2 (09:03→21:49)
[2020-06-07] MEDS: MULTIVIT-MINERALS ORAL LIQUID PEG SCH (09:04)
[2020-06-07] MEDS: DIGOXIN 250 MCG/5 ML LIQUID PEG SCH (09:04)
[2020-06-07] MEDS: COLLAGENASE CLOSTRIDIUM HIST. 30 GRAMS TUBE TP SCH (09:04)
[2020-06-08] MEDS ORDERED: LEVOTHYROXINE NA 25 MCG TABLET (FP) ONE (04:44)
[2020-06-08] MEDS ORDERED: LEVOTHYROXINE NA 150 MCG TABLET ONE (04:45)
[2020-06-08] MEDS: LEVOTHYROXINE PEG SCH (06:05)
[2020-06-08] MEDS: ALBUTEROL SO4 2.5/IPRATROPIUM 0.5 INH SOL 3 ML VIAL.NEB. NEB SCH ×3 (08:40→20:12)
[2020-06-08 09:29] LABS: BASO % 0.6 % (0-2.0); HEMOGLOBIN 7.8 GM/dL (11.7-16.9); MCH 28.8 pg (25.7-33.7); MCHC 32.5 g/dl (32.0-35.9); MEAN CELL VOLUME 88.5 fl (80-96); MEAN PLT VOLUME 10.3 fl (7.5-11.1); MONO % 5.7 % (3.8-10.2); NEUT % 73.7 % (42.8-82.8); PLATELET COUNT 180 K/MM3 (134-434); RBC 2.71 M/mm3 (4.00-5.60); RDW 17.5 % (11.9-15.9); WHITE BLOOD COUNT 7.4 K/mm3 (4.0-10.0)
[2020-06-08 09:50] LABS: ALBUMIN 2.4 g/dl (3.4-5.0)
[2020-06-08] MEDS ORDERED: PT OWN MED DRAWER 7, Y5N ONE (09:50)
[2020-06-08 09:51] LABS: BLOOD UREA NITROGEN 24.3 mg/dL (7-18); CALCIUM 8.4 mg/dL (8.5-10.1); MAGNESIUM 2.1 mg/dL (1.8-2.4)
[2020-06-08 09:55] LABS: CREATININE 0.5 mg/dL (0.55-1.3)
[2020-06-08 09:56] LABS: BILIRUBIN,TOTAL 0.3 mg/dL (0.2-1); TOT PROT 6.8 g/dl (6.4-8.2)
[2020-06-08] MEDS: levETIRAcetam 500 MG/5 ML ORAL SOLUTION (UNIT-DOSE CUPS) GT SCH ×2 (09:59→21:10)
[2020-06-08] MEDS: AMINO ACIDS/PROTEIN HYDROLYS 30 ML LIQUID.PKT PEG SCH (09:59)
[2020-06-08] MEDS: METOPROLOL TARTRATE 25 MG TABLET (FP) GT SCH ×2 (10:00→21:10)
[2020-06-08] MEDS: LISINOPRIL 5 MG TABLET PO SCH (10:00)
[2020-06-08] MEDS: ASCORBIC ACID 500 MG TABLET (FP) GT SCH (10:00)
[2020-06-08] MEDS: DIGOXIN 250 MCG/5 ML LIQUID PEG SCH (10:01)
[2020-06-08] MEDS: MULTIVIT-MINERALS ORAL LIQUID PEG SCH (10:01)
[2020-06-08] MEDS: COLLAGENASE CLOSTRIDIUM HIST. 30 GRAMS TUBE TP SCH (10:02)
[2020-06-08] MEDS: ARTIFICIAL TEARS (POLYVINYL ALCOHOL) OPTH DROPS OU SCH ×4 (10:02→21:10)
[2020-06-09] MEDS ORDERED: LEVOTHYROXINE NA 150 MCG TABLET ONE (05:38)
[2020-06-09] MEDS ORDERED: LEVOTHYROXINE NA 25 MCG TABLET (FP) ONE (05:38)
[2020-06-09] MEDS: LEVOTHYROXINE PEG SCH (05:59)
[2020-06-09] MEDS: ALBUTEROL SO4 2.5/IPRATROPIUM 0.5 INH SOL 3 ML VIAL.NEB. NEB SCH ×2 (08:30→14:30)
[2020-06-09] MEDS ORDERED: PT OWN MED DRAWER 7, Y5N ONE ×2 (09:24→10:49)
[2020-06-09] MEDS: AMINO ACIDS/PROTEIN HYDROLYS 30 ML LIQUID.PKT PEG SCH (09:29)
[2020-06-09] MEDS: ARTIFICIAL TEARS (POLYVINYL ALCOHOL) OPTH DROPS OU SCH ×2 (09:30→13:05)
[2020-06-09] MEDS: levETIRAcetam 500 MG/5 ML ORAL SOLUTION (UNIT-DOSE CUPS) GT SCH (09:32)
[2020-06-09] MEDS: METOPROLOL TARTRATE 25 MG TABLET (FP) GT SCH (09:33)
[2020-06-09] MEDS: LISINOPRIL 5 MG TABLET PO SCH (09:34)
[2020-06-09] MEDS: ASCORBIC ACID 500 MG TABLET (FP) GT SCH (09:35)
[2020-06-09 09:59] LABS: BASO % 0.6 % (0-2.0); EOS % 7.9 % (0-4.5); HEMOGLOBIN 7.7 GM/dL (11.7-16.9); LYMPH % 25.8 % (8-40); MCH 28.7 pg (25.7-33.7); MCHC 32.1 g/dl (32.0-35.9); MEAN CELL VOLUME 89.3 fl (80-96); MONO % 8.9 % (3.8-10.2); NEUT % 56.8 % (42.8-82.8); PLATELET COUNT 158 K/MM3 (134-434); RBC 2.69 M/mm3 (4.00-5.60); RDW 17.3 % (11.9-15.9); WHITE BLOOD COUNT 5.3 K/mm3 (4.0-10.0)
[2020-06-09 10:02] LABS: POTASSIUM 4.7 mmol/L (3.5-5.1)
[2020-06-09 10:10] LABS: CALCIUM 8.7 mg/dL (8.5-10.1)
[2020-06-09 10:11] LABS: ALBUMIN 2.3 g/dl (3.4-5.0); MAGNESIUM 2.3 mg/dL (1.8-2.4)
[2020-06-09 10:14] LABS: CREATININE 0.6 mg/dL (0.55-1.3)
[2020-06-09 10:15] LABS: BILIRUBIN,TOTAL 0.4 mg/dL (0.2-1)
[2020-06-09 10:16] LABS: TOT PROT 6.6 g/dl (6.4-8.2)
[2020-06-09] MEDS: MULTIVIT-MINERALS ORAL LIQUID PEG SCH (10:53)
[2020-06-09] MEDS: DIGOXIN 250 MCG/5 ML LIQUID PEG SCH (10:53)
[2020-06-09] MEDS: COLLAGENASE CLOSTRIDIUM HIST. 30 GRAMS TUBE TP SCH (10:54)
[2020-06-09] MEDS ORDERED: FUROSEMIDE 40 MG/4 ML INJECTABLE VIAL IVPUSH ONE (12:07)
[2020-06-09 15:51] VITALS: BP 107/68; PULSE 90; TEMP 98
== END 2020-06-09 16:18 | DRG 870 ==
LOC: JER 13:03 → JERBED 17:00 → J5S 05-30 14:59
PROVIDERS: ADMIT Internal Medicine; ATTEND Nurse Practitioner Family
PROC: 5A1955Z Respiratory Ventilation, Greater than 96 Consecutive Hours (ICD-10-PCS; principal; 2020-05-28)
PROC: 3E0G76Z Introduction of Nutritional Substance into Upper GI, Via Natural or Artificial Opening (ICD-10-PCS; 2020-05-28)
DX: A41.9 Sepsis, unspecified organism (principal); R53.2 Functional quadriplegia; I50.22 Chronic systolic (congestive) heart failure; J96.11 Chronic respiratory failure with hypoxia; G93.1 Anoxic brain damage, not elsewhere classified; G91.0 Communicating hydrocephalus; I48.19 Other persistent atrial fibrillation; N39.0 Urinary tract infection, site not specified; T83.83XA Hemorrhage due to genitourinary prosthetic devices, implants and grafts, initial encounter; G40.909 Epilepsy, unspecified, not intractable, without status epilepticus; J44.9 Chronic obstructive pulmonary disease, unspecified; E03.9 Hypothyroidism, unspecified; I11.0 Hypertensive heart disease with heart failure; B19.20 Unspecified viral hepatitis C without hepatic coma; Z93.0 Tracheostomy status; Z93.1 Gastrostomy status; I25.2 Old myocardial infarction; K21.9 Gastro-esophageal reflux disease without esophagitis; A63.0 Anogenital (venereal) warts; R31.0 Gross hematuria; E66.9 Obesity, unspecified; D64.9 Anemia, unspecified; E78.5 Hyperlipidemia, unspecified; Z68.39 Body mass index [BMI] 39.0-39.9, adult; Z86.74 Personal history of sudden cardiac arrest; Z20.822 Contact with and (suspected) exposure to COVID-19; R31.9 Hematuria, unspecified; Y84.6 Urinary catheterization as the cause of abnormal reaction of the patient, or of later complication, without mention of misadventure at the time of the procedure
CPT/HCPCS: 36415; 70450-TC; 71045-TC-FY; 80053; 80061; 80162; 80177; 81003; 82272; 82962; 83036; 83605; 83721; 83735; 83880; 84100; 84439; 84443; 84484; 85025; 85610; 85730; 86850; 86900; 86901; 87040; 87086; 87324; 87449; 93005; 93010; 94002; 94640; 99285-25; C9803; J0131; U0003

== ENCOUNTER 2020-10-22 01:46 | Inpatient (IN) | payer OTHER ==
[2020-10-22] MEDS ORDERED: LORazepam 2 MG/ML SDV VIAL IVPUSH ONE ×2 (02:22→20:34)
[2020-10-22] MEDS ORDERED: LORazepam 2 MG/ML SDV VIAL ONE ×2 (02:27→20:35)
[2020-10-22] MEDS ORDERED: ACETAMINOPHEN INJECTION 100 ML IVPB ONE (02:28)
[2020-10-22 02:46] LABS: VENOUS BASE EXCESS 2.6 mmol/L (-2-2); VENOUS O2 SATURATION 97.2 % (70-80); VENOUS PCO2 37.8 mmHg (38-52); VENOUS PH 7.461 (7.310-7.410)
[2020-10-22 02:49] LABS: EPI CELLS >36 /uL (0-25.1); HYALINE CASTS 8 /uL (0-3.1); URINE APPEARANCE TURBID; URINE BACTERIA 44 /uL (0-1359); URINE BILIRUBIN NEGATIVE (NEGATIVE); URINE COLOR YELLOW; URINE GLUCOSE (UA) 3+ (NEGATIVE); URINE KETONE NEGATIVE (NEGATIVE); URINE LEUK ESTERASE 3+ (NEGATIVE); URINE NITRITE NEGATIVE (NEGATIVE); URINE PROTEIN 1+ (NEGATIVE); URINE RBC 212 /uL (0-23.9); URINE UROBILINOGEN 0.2 mg/dL (0.2-1.0); URINE WBC 4929 /uL (0-25.8)
[2020-10-22 02:56] LABS: ARTERIAL BLOOD GAS BASE EXCESS 4.7 mmol/L (-2-2); ARTERIAL BLOOD GAS PO2 42.7 mmHg (80-100); ARTERIAL BLOOD GAS pH 7.421 (7.350-7.450)
[2020-10-22 03:04] LABS: INR 1.29 (0.83-1.09); PROTHROMBIN TIME (PATIENT) 15.5 SEC (9.7-13.0)
[2020-10-22 03:06] LABS: ACTIVATED PTT 29.1 SECONDS (25.2-36.5)
[2020-10-22 03:14] LABS: CHLORIDE 131 mmol/L (98-107)
[2020-10-22 03:16] LABS: ALBUMIN 2.6 g/dl (3.4-5.0); CALCIUM 9.1 mg/dL (8.5-10.1)
[2020-10-22 03:17] LABS: BLOOD UREA NITROGEN 57.8 mg/dL (7-18)
[2020-10-22 03:19] LABS: CREATININE 1.8 mg/dL (0.55-1.3); SGPT/ALT 40 U/L (13-61)
[2020-10-22 03:20] LABS: SGOT/AST 29 U/L (15-37)
[2020-10-22 03:21] LABS: LACTIC ACID 3.1 mmol/L (0.4-2.0); TOT PROT 7.5 g/dl (6.4-8.2)
[2020-10-22 03:22] LABS: ALK PHOS 78 U/L (45-117)
[2020-10-22] MEDS ORDERED: PIPERACILLIN/TAZOB 4.5 GM 4.5 GM in DEXTROSE 5%-WATER 100 ML IVPB ONE (03:27)
[2020-10-22 03:32] LABS: BASO % 1.2 % (0-2.0); EOS % 2.5 % (0-4.5); HEMATOCRIT 41.1 % (35.4-49); HEMOGLOBIN 12.2 GM/dL (11.7-16.9); LYMPH % 12.8 % (8-40); MCH 29.3 pg (25.7-33.7); MCHC 29.6 g/dl (32.0-35.9); MEAN CELL VOLUME 98.9 fl (80-96); MEAN PLT VOLUME 13.5 fl (7.5-11.1); NEUT % 79.5 % (42.8-82.8); PLATELET COUNT 145 10^3/uL (134-434); RBC 4.15 M/mm3 (4.00-5.60); RDW 18.2 % (11.9-15.9); WHITE BLOOD COUNT 10.3 K/mm3 (4.0-10.0)
[2020-10-22] MEDS ORDERED: ACETAMINOPHEN 1000 MG/100 ML VIAL (NON FORMULARY) IVPB ONE ×2 (03:52→09:49)
[2020-10-22] MEDS ORDERED: PIPERACILLIN/TAZOB 4.5 GM 4.5 GM/100 ML BAG IVPB ONE (03:54)
[2020-10-22 03:59] LABS: ANION GAP 9 MMOL/L (8-16); BILIRUBIN,TOTAL 0.4 mg/dL (0.2-1); CO2 28 mmol/L (21-32); GLUCOSE,RANDOM 791 mg/dL (74-106); SODIUM 167 mmol/L (136-145)
[2020-10-22] MEDS ORDERED: INSULIN REGULAR HUMAN 100 UNITS/ML *VIAL IVPUSH ONE (04:18)
[2020-10-22] MEDS ORDERED: VANCOMYCIN 1 GM in D5W (PRE-DOCKED) 1,000 MG/250 ML IVPB ONE (04:22)
[2020-10-22] MEDS ORDERED: SODIUM CHLORIDE 0.45% 1,000 ML IV SCH ×3 (04:30→12:15)
[2020-10-22] MEDS ORDERED: VANCOMYCIN 1 GRAM (PRE-DOCKED) 1,000 MG/250 ML BAG IVPB ONE (04:55)
[2020-10-22] MEDS ORDERED: ACETAMINOPHEN 325 MG TABLET (FP) PO PRN (05:08)
[2020-10-22 05:48] LABS: YEAST MANY (NEGATIVE)
[2020-10-22] MEDS ORDERED: PANTOPRAZOLE 40 MG TABLET PO SCH ×2 (06:00→10:00)
[2020-10-22] MEDS ORDERED: METOPROLOL TARTRATE 5 MG/5 ML VIAL IVPUSH PRN (06:14)
[2020-10-22] MEDS ORDERED: FAMOTIDINE 40 MG/5 ML ORAL SUSPENSION PO SCH (06:40)
[2020-10-22] MEDS ORDERED: FAMOTIDINE 40 MG/5 ML ORAL SUSPENSION NR SCH (06:41)
[2020-10-22] MEDS ORDERED: INSULIN REGULAR 100 UNITS in SODIUM CHLORIDE 99 ML IVPB SCH (06:45)
[2020-10-22] MEDS ORDERED: CEFEPIME 2 GM in DEXTROSE 5%-WATER 2 GM/100 ML BAG IVPB ONE (07:00)
[2020-10-22] MEDS ORDERED: INSULIN SLIDING SCALE (NOVOLOG) 1 VIAL SQ SCH ×2 (07:00)
[2020-10-22] MEDS ORDERED: POTASSIUM CHLORIDE ORAL LIQUID 20 MEQ/15 ML GT ONE ×2 (07:46→12:59)
[2020-10-22 07:51] LABS: LACTIC ACID 5.2 mmol/L (0.4-2.0)
[2020-10-22] MEDS ORDERED: POTASSIUM CHLORIDE ORAL LIQUID 20 MEQ/15 ML ONE (08:08)
[2020-10-22 08:15] LABS: URINE APPEARANCE TURBID; URINE BILIRUBIN NEGATIVE (NEGATIVE); URINE COLOR YELLOW; URINE GLUCOSE (UA) 3+ (NEGATIVE); URINE KETONE NEGATIVE (NEGATIVE); URINE LEUK ESTERASE 2+ (NEGATIVE); URINE NITRITE NEGATIVE (NEGATIVE); URINE PROTEIN 2+ (NEGATIVE); URINE UROBILINOGEN 0.2 mg/dL (0.2-1.0)
[2020-10-22] MEDS: METOPROLOL TARTRATE 5 MG/5 ML VIAL IVPUSH PRN ×3 (08:37→21:22)
[2020-10-22] MEDS ORDERED: METOPROLOL TARTRATE 5 MG/5 ML VIAL ONE (08:38)
[2020-10-22] MEDS ORDERED: AMIODARONE IN DEXTROSE,ISO-OSM 150 MG/100 ML BAG IVPB ONE ×3 (09:49→18:30)
[2020-10-22] MEDS ORDERED: PT OWN MED DRAWER 7, Y5N ONE (11:16)
[2020-10-22] MEDS ORDERED: FAMOTIDINE 40 MG/5 ML ORAL SUSPENSION NGT SCH (11:21)
[2020-10-22] MEDS ORDERED: dilTIAZem HCL 50 MG/10 ML - 10 ML VIAL IVPUSH ONE ×2 (11:38→11:55)
[2020-10-22] MEDS: INSULIN REGULAR 100 UNITS in SODIUM CHLORIDE 99 ML IVPB SCH ×2 (11:40→17:05)
[2020-10-22] MEDS ORDERED: dilTIAZem HCL 125 MG/25 ML - 25 ML VIAL ONE (11:40)
[2020-10-22] MEDS: levETIRAcetam 500 MG/5 ML ORAL SOLUTION (UNIT-DOSE CUPS) GT SCH ×2 (11:57→23:29)
[2020-10-22] MEDS: APIXABAN 5 MG TABLET GT SCH ×2 (11:57→23:29)
[2020-10-22] MEDS: FAMOTIDINE 40 MG/5 ML ORAL SUSPENSION NGT SCH (11:59)
[2020-10-22] MEDS: MUPIROCIN 2% TOPICAL OINTMENT FOR DECOLONIZATION NS SCH ×2 (12:00→23:29)
[2020-10-22 12:09] LABS: CHLORIDE 131 mmol/L (98-107)
[2020-10-22 12:11] LABS: CALCIUM 9.1 mg/dL (8.5-10.1)
[2020-10-22 12:12] LABS: ALBUMIN 2.7 g/dl (3.4-5.0); BLOOD UREA NITROGEN 61.7 mg/dL (7-18); CO2 28 mmol/L (21-32)
[2020-10-22 12:15] LABS: CREATININE 1.9 mg/dL (0.55-1.3); SGOT/AST 27 U/L (15-37); SGPT/ALT 41 U/L (13-61)
[2020-10-22 12:16] LABS: BILIRUBIN,TOTAL 0.5 mg/dL (0.2-1); TOT PROT 7.8 g/dl (6.4-8.2)
[2020-10-22 12:17] LABS: ALK PHOS 75 U/L (45-117); ANION GAP 8 MMOL/L (8-16); GLUCOSE,RANDOM 489 mg/dL (74-106); SODIUM 167 mmol/L (136-145)
[2020-10-22] MEDS: METOPROLOL TARTRATE 25 MG TABLET (FP) GT SCH ×2 (12:33→23:29)
[2020-10-22] MEDS ORDERED: SODIUM CHLORIDE 1,000 ML IV STA (12:34)
[2020-10-22 13:04] LABS: N-TERMINAL BNP 1659.4 pg/ml (5-125)
[2020-10-22] MEDS ORDERED: SODIUM CHLORIDE 0.45% 1,000 ML with POTASSIUM CHLORIDE 40 MEQ IV SCH ×2 (13:30→13:33)
[2020-10-22] MEDS ORDERED: SODIUM CHLORIDE 0.45% 1,000 ML with POTASSIUM CHLORIDE 20 MEQ IV SCH (13:45)
[2020-10-22] MEDS: SODIUM CHLORIDE 0.45%/POT 20 MEQ/1,000 ML INFUS.BAG IV SCH (15:09)
[2020-10-22 15:23] LABS: CHLORIDE 134 mmol/L (98-107)
[2020-10-22 15:25] LABS: EPI CELLS FEW /HPF; URINE BACTERIA RARE /hpf (NEGATIVE); URINE WBC 20-30 (NEGATIVE)
[2020-10-22 15:25] LABS: ALBUMIN 2.4 g/dl (3.4-5.0); CALCIUM 8.7 mg/dL (8.5-10.1); CO2 31 mmol/L (21-32); GLUCOSE,RANDOM 366 mg/dL (74-106)
[2020-10-22] MEDS ORDERED: METOPROLOL TARTRATE 5 MG/5 ML VIAL IVPUSH ONE (15:25)
[2020-10-22 15:26] LABS: BLOOD UREA NITROGEN 61.3 mg/dL (7-18)
[2020-10-22 15:28] LABS: CREATININE 1.6 mg/dL (0.55-1.3); SGPT/ALT 36 U/L (13-61)
[2020-10-22 15:29] LABS: SGOT/AST 27 U/L (15-37)
[2020-10-22 15:30] LABS: BILIRUBIN,TOTAL 0.4 mg/dL (0.2-1); TOT PROT 6.9 g/dl (6.4-8.2)
[2020-10-22 15:31] LABS: ALK PHOS 67 U/L (45-117); ANION GAP 4 MMOL/L (8-16); SODIUM 169 mmol/L (136-145)
[2020-10-22 16:54] LABS: CHLORIDE 135 mmol/L (98-107)
[2020-10-22 16:57] LABS: CALCIUM 8.9 mg/dL (8.5-10.1)
[2020-10-22 16:58] LABS: ALBUMIN 2.5 g/dl (3.4-5.0); BLOOD UREA NITROGEN 57.3 mg/dL (7-18); CO2 29 mmol/L (21-32); GLUCOSE,RANDOM 316 mg/dL (74-106)
[2020-10-22 17:01] LABS: CREATININE 1.6 mg/dL (0.55-1.3); SGOT/AST 39 U/L (15-37); SGPT/ALT 38 U/L (13-61)
[2020-10-22 17:03] LABS: BILIRUBIN,TOTAL 0.4 mg/dL (0.2-1); TOT PROT 7.2 g/dl (6.4-8.2)
[2020-10-22 17:04] LABS: ALK PHOS 69 U/L (45-117)
[2020-10-22 17:05] LABS: ANION GAP 4 MMOL/L (8-16); SODIUM 168 mmol/L (136-145)
[2020-10-22] MEDS ORDERED: PIPERACILLIN/TAZOBACTAM 3.375 GM VIAL IVPB ONE ×2 (17:06→21:37)
[2020-10-22] MEDS: PIPERACILLIN/TAZOB 3.375 GM 3.375 GM in DEXTROSE 5%-WATER - 50 ML IVPB SCH (17:07)
[2020-10-22] MEDS ORDERED: DEXTROSE 5%-WATER - 50 ML IVPB ONE ×2 (17:07→21:37)
[2020-10-22 18:25] LABS: CHLORIDE 134 mmol/L (98-107)
[2020-10-22 18:27] LABS: ALBUMIN 2.4 g/dl (3.4-5.0); BLOOD UREA NITROGEN 60.8 mg/dL (7-18); CALCIUM 8.5 mg/dL (8.5-10.1); CO2 30 mmol/L (21-32); GLUCOSE,RANDOM 256 mg/dL (74-106)
[2020-10-22 18:30] LABS: CREATININE 1.5 mg/dL (0.55-1.3); SGOT/AST 37 U/L (15-37); SGPT/ALT 39 U/L (13-61)
[2020-10-22 18:32] LABS: BILIRUBIN,TOTAL 0.4 mg/dL (0.2-1)
[2020-10-22 18:33] LABS: ALK PHOS 69 U/L (45-117)
[2020-10-22] MEDS ORDERED: AMIODARONE IN DEXTROSE,ISO-OSM 360 MG/200 ML BAG IVPB ONE ×2 (18:35→18:40)
[2020-10-22 18:36] LABS: ANION GAP 2 MMOL/L (8-16); SODIUM 166 mmol/L (136-145)
[2020-10-22 20:58] LABS: CHLORIDE 133 mmol/L (98-107)
[2020-10-22 21:00] LABS: ALBUMIN 2.5 g/dl (3.4-5.0); CALCIUM 8.4 mg/dL (8.5-10.1); CO2 28 mmol/L (21-32); GLUCOSE,RANDOM 258 mg/dL (74-106)
[2020-10-22 21:01] LABS: BLOOD UREA NITROGEN 60.2 mg/dL (7-18)
[2020-10-22 21:03] LABS: CREATININE 1.4 mg/dL (0.55-1.3); SGPT/ALT 38 U/L (13-61)
[2020-10-22 21:04] LABS: SGOT/AST 32 U/L (15-37)
[2020-10-22 21:05] LABS: BILIRUBIN,TOTAL 0.6 mg/dL (0.2-1)
[2020-10-22 21:06] LABS: ALK PHOS 68 U/L (45-117)
[2020-10-22 21:29] LABS: ANION GAP 7 MMOL/L (8-16); SODIUM 168 mmol/L (136-145)
[2020-10-22] MEDS: INSULIN SLIDING SCALE (NOVOLOG) 1 VIAL SQ SCH (21:35)
[2020-10-22] MEDS: CHLORHEXIDINE GLUCONATE 4% CLEANSER FOR DECOLONIZATION TP SCH (23:29)
[2020-10-23 00:21] LABS: CHLORIDE 131 mmol/L (98-107)
[2020-10-23 00:23] LABS: CALCIUM 7.9 mg/dL (8.5-10.1)
[2020-10-23 00:24] LABS: ALBUMIN 2.3 g/dl (3.4-5.0); BLOOD UREA NITROGEN 54.8 mg/dL (7-18); CO2 29 mmol/L (21-32); GLUCOSE,RANDOM 322 mg/dL (74-106)
[2020-10-23 00:27] LABS: CREATININE 1.5 mg/dL (0.55-1.3); SGOT/AST 33 U/L (15-37); SGPT/ALT 37 U/L (13-61)
[2020-10-23 00:28] LABS: BILIRUBIN,TOTAL 0.4 mg/dL (0.2-1)
[2020-10-23 00:29] LABS: TOT PROT 6.5 g/dl (6.4-8.2)
[2020-10-23 00:30] LABS: ALK PHOS 65 U/L (45-117)
[2020-10-23] MEDS ORDERED: AMIODARONE IN DEXTROSE,ISO-OSM 360 MG/200 ML BAG IVPB ONE (00:40)
[2020-10-23 01:03] LABS: ANION GAP 6 MMOL/L (8-16); SODIUM 166 mmol/L (136-145)
[2020-10-23] MEDS: AMIODARONE IN DEXTROSE,ISO-OSM 360 MG/200 ML BAG IVPB SCH ×3 (01:30→19:50)
[2020-10-23] MEDS: PIPERACILLIN/TAZOB 3.375 GM 3.375 GM in DEXTROSE 5%-WATER - 50 ML IVPB SCH ×2 (01:30→09:58)
[2020-10-23] MEDS: METOPROLOL TARTRATE 5 MG/5 ML VIAL IVPUSH PRN (03:22)
[2020-10-23 04:13] LABS: CALCIUM 7.7 mg/dL (8.5-10.1)
[2020-10-23 04:14] LABS: ALBUMIN 2.3 g/dl (3.4-5.0); BLOOD UREA NITROGEN 56.4 mg/dL (7-18)
[2020-10-23 04:17] LABS: CREATININE 1.4 mg/dL (0.55-1.3)
[2020-10-23 04:19] LABS: BILIRUBIN,TOTAL 0.4 mg/dL (0.2-1); TOT PROT 6.4 g/dl (6.4-8.2)
[2020-10-23] MEDS: SODIUM CHLORIDE 0.45%/POT 20 MEQ/1,000 ML INFUS.BAG IV SCH (04:51)
[2020-10-23] MEDS: INSULIN SLIDING SCALE (NOVOLOG) 1 VIAL SQ SCH ×4 (06:14→22:31)
[2020-10-23 07:12] LABS: MAGNESIUM 2.5 mg/dL (1.8-2.4)
[2020-10-23 07:19] LABS: BASO % 0.5 % (0-2.0); EOS % 5.7 % (0-4.5); HEMATOCRIT 33.9 % (35.4-49); HEMOGLOBIN 10.4 GM/dL (11.7-16.9); MCH 29.7 pg (25.7-33.7); MCHC 30.7 g/dl (32.0-35.9); MEAN CELL VOLUME 96.5 fl (80-96); MEAN PLT VOLUME 12.4 fl (7.5-11.1); MONO % 2.9 % (3.8-10.2); NEUT % 74.9 % (42.8-82.8); PLATELET COUNT 99 10^3/uL (134-434); RBC 3.52 M/mm3 (4.00-5.60); RDW 17.3 % (11.9-15.9)
[2020-10-23 07:29] LABS: PHOSPHOROUS 3.2 mg/dL (2.5-4.9)
[2020-10-23 07:48] LABS: ALBUMIN 2.2 g/dl (3.4-5.0); CALCIUM 7.7 mg/dL (8.5-10.1)
[2020-10-23 07:49] LABS: BLOOD UREA NITROGEN 55.4 mg/dL (7-18); MAGNESIUM 2.4 mg/dL (1.8-2.4)
[2020-10-23 07:52] LABS: BILIRUBIN,TOTAL 0.5 mg/dL (0.2-1); CREATININE 1.4 mg/dL (0.55-1.3); PHOSPHOROUS 3.2 mg/dL (2.5-4.9); TOT PROT 6.2 g/dl (6.4-8.2)
[2020-10-23] MEDS ORDERED: PIPERACILLIN/TAZOBACTAM 3.375 GM VIAL IVPB ONE (09:30)
[2020-10-23] MEDS ORDERED: PT OWN MED DRAWER 7, Y5N ONE ×2 (09:30→10:19)
[2020-10-23] MEDS ORDERED: DEXTROSE 5%-WATER - 50 ML IVPB ONE (09:30)
[2020-10-23] MEDS: MUPIROCIN 2% TOPICAL OINTMENT FOR DECOLONIZATION NS SCH ×2 (09:55→22:23)
[2020-10-23] MEDS: APIXABAN 5 MG TABLET GT SCH ×2 (09:56→22:23)
[2020-10-23] MEDS: levETIRAcetam 500 MG/5 ML ORAL SOLUTION (UNIT-DOSE CUPS) GT SCH ×2 (09:57→22:23)
[2020-10-23] MEDS: FAMOTIDINE 40 MG/5 ML ORAL SUSPENSION NGT SCH (09:57)
[2020-10-23] MEDS: METOPROLOL TARTRATE 25 MG TABLET (FP) GT SCH ×2 (09:58→22:24)
[2020-10-23] MEDS: INSULIN REGULAR 100 UNITS in SODIUM CHLORIDE 99 ML IVPB SCH (10:30)
[2020-10-23] MEDS ORDERED: SODIUM CHLORIDE 1,000 ML IV STA (12:29)
[2020-10-23 12:56] LABS: CHLORIDE 114 mmol/L (98-107); SODIUM 150 mmol/L (136-145)
[2020-10-23 12:57] LABS: CALCIUM 7.4 mg/dL (8.5-10.1)
[2020-10-23 12:58] LABS: ANION GAP 12 MMOL/L (8-16); CO2 24 mmol/L (21-32)
[2020-10-23 13:01] LABS: CREATININE 1.2 mg/dL (0.55-1.3)
[2020-10-23 13:03] LABS: GLUCOSE,RANDOM 407 mg/dL (74-106)
[2020-10-23] MEDS ORDERED: POTASSIUM CHLORIDE 20 MEQ PREMIX IVPB 100 ML IVPB ONE (13:15)
[2020-10-23] MEDS ORDERED: POTASSIUM CHLORIDE ORAL LIQUID 20 MEQ/15 ML GT ONE (13:16)
[2020-10-23] MEDS ORDERED: DEXTROSE 5%-WATER 100 ML IVPB ONE (16:07)
[2020-10-23] MEDS ORDERED: CEFEPIME HCL 1 GM VIAL (RESTRICTED TO ID) ONE (16:07)
[2020-10-23] MEDS: CEFEPIME 1 GM in DEXTROSE 5%-WATER 1 GM/100 ML BAG IVPB SCH (17:01)
[2020-10-23] MEDS ORDERED: AMIODARONE HCL INJECTION 150 MG in DEXTROSE 5%-WATER - 100 ML IVPB ONE (19:07)
[2020-10-23 20:05] LABS: CALCIUM 7.1 mg/dL (8.5-10.1)
[2020-10-23 20:06] LABS: BLOOD UREA NITROGEN 43.5 mg/dL (7-18)
[2020-10-23] MEDS: CHLORHEXIDINE GLUCONATE 4% CLEANSER FOR DECOLONIZATION TP SCH (22:23)
[2020-10-24] MEDS: AMIODARONE IN DEXTROSE,ISO-OSM 360 MG/200 ML BAG IVPB SCH ×3 (00:29→19:23)
[2020-10-24] MEDS ORDERED: PT OWN MED DRAWER 7, Y5N ONE ×3 (00:31→21:11)
[2020-10-24] MEDS ORDERED: DEXTROSE 5%-WATER 100 ML IVPB ONE ×3 (01:38→16:45)
[2020-10-24] MEDS ORDERED: CEFEPIME HCL 1 GM VIAL (RESTRICTED TO ID) ONE ×3 (01:38→16:45)
[2020-10-24] MEDS: CEFEPIME 1 GM in DEXTROSE 5%-WATER 1 GM/100 ML BAG IVPB SCH ×3 (01:40→17:01)
[2020-10-24 03:55] LABS: CALCIUM 7.1 mg/dL (8.5-10.1)
[2020-10-24 03:56] LABS: BLOOD UREA NITROGEN 35.3 mg/dL (7-18)
[2020-10-24] MEDS: INSULIN SLIDING SCALE (NOVOLOG) 1 VIAL SQ SCH ×4 (06:12→21:27)
[2020-10-24 07:13] LABS: BLOOD UREA NITROGEN 33.6 mg/dL (7-18); CALCIUM 7.2 mg/dL (8.5-10.1); MAGNESIUM 2.4 mg/dL (1.8-2.4)
[2020-10-24 07:17] LABS: PHOSPHOROUS 2.3 mg/dL (2.5-4.9)
[2020-10-24] MEDS: METOPROLOL TARTRATE 25 MG TABLET (FP) GT SCH ×2 (09:23→21:27)
[2020-10-24] MEDS: APIXABAN 5 MG TABLET GT SCH ×2 (09:23→21:27)
[2020-10-24] MEDS: levETIRAcetam 500 MG/5 ML ORAL SOLUTION (UNIT-DOSE CUPS) GT SCH ×2 (09:23→21:27)
[2020-10-24] MEDS: MUPIROCIN 2% TOPICAL OINTMENT FOR DECOLONIZATION NS SCH ×2 (09:23→21:27)
[2020-10-24] MEDS: FAMOTIDINE 40 MG/5 ML ORAL SUSPENSION NGT SCH (09:24)
[2020-10-24] MEDS ORDERED: DIGOXIN 0.5 MG/2 ML AMPUL IVPUSH ONE ×2 (10:15→18:07)
[2020-10-24] MEDS: INSULIN REGULAR 100 UNITS in SODIUM CHLORIDE 99 ML IVPB SCH (10:30)
[2020-10-24 15:44] LABS: CALCIUM 7.6 mg/dL (8.5-10.1)
[2020-10-24 15:45] LABS: BLOOD UREA NITROGEN 25.8 mg/dL (7-18)
[2020-10-24 15:48] LABS: CREATININE 0.9 mg/dL (0.55-1.3)
[2020-10-24] MEDS ORDERED: INSULIN (NOVOLOG) ASPART 100 UNITS/ML 10ML VIAL ONE (16:45)
[2020-10-24] MEDS: ACETAMINOPHEN 650 MG/20.3 ML ORAL SOLUTION (CUPS) GT PRN (21:24)
[2020-10-24] MEDS: CHLORHEXIDINE GLUCONATE 4% CLEANSER FOR DECOLONIZATION TP SCH (21:27)
[2020-10-24 21:52] LABS: CALCIUM 7.6 mg/dL (8.5-10.1)
[2020-10-24 21:53] LABS: BLOOD UREA NITROGEN 22.6 mg/dL (7-18)
[2020-10-24 21:56] LABS: CREATININE 0.9 mg/dL (0.55-1.3)
[2020-10-25] MEDS ORDERED: DEXTROSE 5%-WATER 100 ML IVPB ONE ×2 (00:43→08:42)
[2020-10-25] MEDS ORDERED: CEFEPIME HCL 1 GM VIAL (RESTRICTED TO ID) ONE ×2 (00:43→08:42)
[2020-10-25] MEDS: AMIODARONE IN DEXTROSE,ISO-OSM 360 MG/200 ML BAG IVPB SCH ×3 (00:53→23:55)
[2020-10-25] MEDS: CEFEPIME 1 GM in DEXTROSE 5%-WATER 1 GM/100 ML BAG IVPB SCH ×2 (01:10→09:01)
[2020-10-25] MEDS ORDERED: INSULIN (NOVOLOG) ASPART 100 UNITS/ML 10ML VIAL SQ ONE (01:48)
[2020-10-25] MEDS ORDERED: INSULIN (LEVEMIR) 100 UNITS/ML UNITS SQ SCH (02:00)
[2020-10-25] MEDS ORDERED: Insulin (LOG) Aspart 100 UNITS/ML VIAL SQ ONE (02:07)
[2020-10-25] MEDS ORDERED: fentaNYL 25mcg/hr PATCH.TD72 TD ONE (04:33)
[2020-10-25] MEDS: INSULIN SLIDING SCALE (NOVOLOG) 1 VIAL SQ SCH ×4 (06:20→23:58)
[2020-10-25] MEDS ORDERED: PT OWN MED DRAWER 7, Y5N ONE ×5 (08:42→23:34)
[2020-10-25] MEDS: APIXABAN 5 MG TABLET GT SCH ×2 (09:00→23:55)
[2020-10-25] MEDS: MUPIROCIN 2% TOPICAL OINTMENT FOR DECOLONIZATION NS SCH ×2 (09:00→23:55)
[2020-10-25] MEDS: levETIRAcetam 500 MG/5 ML ORAL SOLUTION (UNIT-DOSE CUPS) GT SCH ×2 (09:00→23:55)
[2020-10-25] MEDS: METOPROLOL TARTRATE 25 MG TABLET (FP) GT SCH ×2 (09:01→23:21)
[2020-10-25] MEDS: FAMOTIDINE 40 MG/5 ML ORAL SUSPENSION NGT SCH (09:02)
[2020-10-25] MEDS ORDERED: INSULIN (NOVOLOG) ASPART 100 UNITS/ML 10ML VIAL ONE ×2 (11:00→11:47)
[2020-10-25 13:16] LABS: CALCIUM 7.7 mg/dL (8.5-10.1)
[2020-10-25 13:17] LABS: BLOOD UREA NITROGEN 17.1 mg/dL (7-18)
[2020-10-25 13:20] LABS: CREATININE 0.9 mg/dL (0.55-1.3)
[2020-10-25] MEDS ORDERED: CEFTOLOZANE/TAZOBACTAM (ZERBAXA) 1.5 GM/11.4 ML VIAL IVPB SCH (13:45)
[2020-10-25] MEDS ORDERED: POTASSIUM CHLORIDE ORAL LIQUID 20 MEQ/15 ML PO ONE (14:16)
[2020-10-25] MEDS: CEFTAZIDIME/AVIBACTAM 2.5 GM in DEXTROSE 5%-WATER - 250 ML IVPB SCH ×2 (14:35→18:08)
[2020-10-25] MEDS: ACETAMINOPHEN 650 MG/20.3 ML ORAL SOLUTION (CUPS) GT PRN ×2 (14:39→23:56)
[2020-10-25] MEDS: INSULIN (LEVEMIR) 100 UNITS/ML UNITS SQ SCH (18:13)
[2020-10-25 20:47] LABS: EPI CELLS >36 /uL (0-25.1); HYALINE CASTS 272 /uL (0-3.1); URINE APPEARANCE TURBID; URINE BILIRUBIN NEGATIVE (NEGATIVE); URINE COLOR YELLOW; URINE GLUCOSE (UA) NEGATIVE (NEGATIVE); URINE KETONE NEGATIVE (NEGATIVE); URINE LEUK ESTERASE 3+ (NEGATIVE); URINE NITRITE NEGATIVE (NEGATIVE); URINE PROTEIN 1+ (NEGATIVE); URINE UROBILINOGEN 0.2 mg/dL (0.2-1.0); URINE WBC 18336 /uL (0-25.8)
[2020-10-25 21:46] LABS: URINE BACTERIA 23.8 /uL (0-1359); URINE RBC 5586.8 /uL (0-23.9); YEAST MANY (NEGATIVE)
[2020-10-25] MEDS: CHLORHEXIDINE GLUCONATE 4% CLEANSER FOR DECOLONIZATION TP SCH (23:55)
[2020-10-26] MEDS: CEFTAZIDIME/AVIBACTAM 2.5 GM in DEXTROSE 5%-WATER - 250 ML IVPB SCH ×3 (01:06→17:26)
[2020-10-26] MEDS: INSULIN (LEVEMIR) 100 UNITS/ML UNITS SQ SCH ×2 (06:03→17:50)
[2020-10-26] MEDS: INSULIN SLIDING SCALE (NOVOLOG) 1 VIAL SQ SCH ×4 (06:04→21:29)
[2020-10-26 07:08] LABS: HEMATOCRIT 31.9 % (35.4-49); HEMOGLOBIN 10.1 GM/dL (11.7-16.9); MCH 29.7 pg (25.7-33.7); MCHC 31.7 g/dl (32.0-35.9); MEAN CELL VOLUME 93.6 fl (80-96); MEAN PLT VOLUME 12.7 fl (7.5-11.1); PLATELET COUNT 108 10^3/uL (134-434); RBC 3.41 M/mm3 (4.00-5.60); RDW 16.4 % (11.9-15.9); WHITE BLOOD COUNT 6.2 K/mm3 (4.0-10.0)
[2020-10-26 07:29] LABS: BLOOD UREA NITROGEN 13.2 mg/dL (7-18); MAGNESIUM 2.5 mg/dL (1.8-2.4)
[2020-10-26 07:32] LABS: CREATININE 0.7 mg/dL (0.55-1.3); URIC ACID 4.9 mg/dL (2.6-7.2)
[2020-10-26 07:33] LABS: PHOSPHOROUS 1.6 mg/dL (2.5-4.9)
[2020-10-26] MEDS ORDERED: PT OWN MED DRAWER 7, Y5N ONE ×2 (09:09→17:26)
[2020-10-26] MEDS: METOPROLOL TARTRATE 25 MG TABLET (FP) GT SCH (09:30)
[2020-10-26] MEDS: ACETAMINOPHEN 650 MG/20.3 ML ORAL SOLUTION (CUPS) GT PRN (09:30)
[2020-10-26] MEDS ORDERED: POTASSIUM CHLORIDE ORAL LIQUID 20 MEQ/15 ML GT ONE (09:30)
[2020-10-26] MEDS: FAMOTIDINE 40 MG/5 ML ORAL SUSPENSION NGT SCH (09:30)
[2020-10-26] MEDS ORDERED: NAPH,MB-DB/K PH,MBDB POWDER PACKET GT ONE (09:30)
[2020-10-26] MEDS: APIXABAN 5 MG TABLET GT SCH ×2 (09:31→21:06)
[2020-10-26] MEDS: MUPIROCIN 2% TOPICAL OINTMENT FOR DECOLONIZATION NS SCH ×2 (09:31→21:06)
[2020-10-26] MEDS: levETIRAcetam 500 MG/5 ML ORAL SOLUTION (UNIT-DOSE CUPS) GT SCH ×2 (09:31→21:06)
[2020-10-26] MEDS: AMIODARONE IN DEXTROSE,ISO-OSM 360 MG/200 ML BAG IVPB SCH (09:32)
[2020-10-26] MEDS: KCL 10 MEQ IVPB 10 MEQ/100 ML INFUS.BAG IVPB SCH ×3 (09:57→16:12)
[2020-10-26] MEDS ORDERED: LORazepam 2 MG/ML SDV VIAL IVPUSH SCH ×2 (19:45)
[2020-10-26] MEDS: CHLORHEXIDINE GLUCONATE 4% CLEANSER FOR DECOLONIZATION TP SCH (21:06)
[2020-10-26] MEDS: METOPROLOL TARTRATE 50 MG TABLET (FP) GT SCH (21:06)
[2020-10-26] MEDS: AMIODARONE HCL 200 MG TABLET PO SCH (21:06)
[2020-10-26] MEDS ORDERED: LORazepam 2 MG/ML SDV VIAL ONE (21:24)
[2020-10-27] MEDS: CEFTAZIDIME/AVIBACTAM 2.5 GM in DEXTROSE 5%-WATER - 250 ML IVPB SCH ×3 (02:02→17:33)
[2020-10-27 06:43] LABS: BASO % 0.4 % (0-2.0); EOS % 5.9 % (0-4.5); HEMATOCRIT 33.1 % (35.4-49); HEMOGLOBIN 10.4 GM/dL (11.7-16.9); LYMPH % 23.2 % (8-40); MCH 29.5 pg (25.7-33.7); MCHC 31.4 g/dl (32.0-35.9); MEAN CELL VOLUME 94.2 fl (80-96); MEAN PLT VOLUME 12.8 fl (7.5-11.1); MONO % 6.6 % (3.8-10.2); NEUT % 63.9 % (42.8-82.8); PLATELET COUNT 110 10^3/uL (134-434); RBC 3.51 M/mm3 (4.00-5.60); RDW 16.5 % (11.9-15.9); WHITE BLOOD COUNT 6.4 K/mm3 (4.0-10.0)
[2020-10-27 07:00] LABS: ALBUMIN 1.9 g/dl (3.4-5.0); BLOOD UREA NITROGEN 10.6 mg/dL (7-18); CALCIUM 8.2 mg/dL (8.5-10.1); MAGNESIUM 2.4 mg/dL (1.8-2.4)
[2020-10-27 07:04] LABS: CREATININE 0.6 mg/dL (0.55-1.3)
[2020-10-27 07:05] LABS: PHOSPHOROUS 1.6 mg/dL (2.5-4.9)
[2020-10-27 07:06] LABS: BILIRUBIN,TOTAL 0.4 mg/dL (0.2-1); TOT PROT 5.9 g/dl (6.4-8.2)
[2020-10-27] MEDS: INSULIN (LEVEMIR) 100 UNITS/ML UNITS SQ SCH ×2 (07:18→17:33)
[2020-10-27] MEDS: INSULIN SLIDING SCALE (NOVOLOG) 1 VIAL SQ SCH ×4 (07:18→22:07)
[2020-10-27] MEDS: AMINO ACIDS/PROTEIN HYDROLYS 30 ML LIQUID.PKT PO SCH (08:54)
[2020-10-27] MEDS ORDERED: PT OWN MED DRAWER 7, Y5N ONE ×2 (10:37→13:55)
[2020-10-27] MEDS: ACETAMINOPHEN 650 MG/20.3 ML ORAL SOLUTION (CUPS) GT PRN ×2 (10:53→17:31)
[2020-10-27] MEDS: levETIRAcetam 500 MG/5 ML ORAL SOLUTION (UNIT-DOSE CUPS) GT SCH ×2 (10:54→21:45)
[2020-10-27] MEDS: AMIODARONE HCL 200 MG TABLET PO SCH ×2 (10:54→21:09)
[2020-10-27] MEDS: APIXABAN 5 MG TABLET GT SCH ×2 (10:54→21:09)
[2020-10-27] MEDS: FAMOTIDINE 40 MG/5 ML ORAL SUSPENSION NGT SCH (10:57)
[2020-10-27] MEDS: METOPROLOL TARTRATE 50 MG TABLET (FP) GT SCH ×2 (11:00→21:08)
[2020-10-27] MEDS: CHLORHEXIDINE GLUCONATE 4% CLEANSER FOR DECOLONIZATION TP SCH (21:09)
[2020-10-28] MEDS: CEFTAZIDIME/AVIBACTAM 2.5 GM in DEXTROSE 5%-WATER - 250 ML IVPB SCH ×3 (01:20→18:22)
[2020-10-28] MEDS ORDERED: FENTANYL PATCH WASTE TD ONE (04:32)
[2020-10-28] MEDS: INSULIN SLIDING SCALE (NOVOLOG) 1 VIAL SQ SCH ×4 (07:10→21:36)
[2020-10-28] MEDS: INSULIN (LEVEMIR) 100 UNITS/ML UNITS SQ SCH ×2 (07:10→18:23)
[2020-10-28 07:31] LABS: BASO % 0.4 % (0-2.0); EOS % 5.7 % (0-4.5); HEMATOCRIT 30.9 % (35.4-49); LYMPH % 24.3 % (8-40); MCH 30.2 pg (25.7-33.7); MCHC 32.3 g/dl (32.0-35.9); MEAN CELL VOLUME 93.5 fl (80-96); MEAN PLT VOLUME 12.4 fl (7.5-11.1); MONO % 7.9 % (3.8-10.2); NEUT % 61.7 % (42.8-82.8); PLATELET COUNT 125 10^3/uL (134-434); RDW 16.6 % (11.9-15.9); WHITE BLOOD COUNT 6.4 K/mm3 (4.0-10.0)
[2020-10-28 07:59] LABS: CALCIUM 8.3 mg/dL (8.5-10.1)
[2020-10-28 08:00] LABS: BLOOD UREA NITROGEN 11.3 mg/dL (7-18)
[2020-10-28 08:01] LABS: BILIRUBIN,TOTAL 0.2 mg/dL (0.2-1); TOT PROT 6.2 g/dl (6.4-8.2)
[2020-10-28 08:03] LABS: CREATININE 0.6 mg/dL (0.55-1.3); PHOSPHOROUS 2.1 mg/dL (2.5-4.9)
[2020-10-28] MEDS ORDERED: PT OWN MED DRAWER 7, Y5N ONE ×3 (08:03→17:44)
[2020-10-28 08:06] LABS: MAGNESIUM 2.4 mg/dL (1.8-2.4)
[2020-10-28] MEDS: AMINO ACIDS/PROTEIN HYDROLYS 30 ML LIQUID.PKT PO SCH (08:46)
[2020-10-28] MEDS ORDERED: NAPH,MB-DB/K PH,MBDB POWDER PACKET GT ONE (09:00)
[2020-10-28] MEDS: levETIRAcetam 500 MG/5 ML ORAL SOLUTION (UNIT-DOSE CUPS) GT SCH ×2 (10:46→21:34)
[2020-10-28] MEDS: FAMOTIDINE 40 MG/5 ML ORAL SUSPENSION NGT SCH (10:48)
[2020-10-28] MEDS: AMIODARONE HCL 200 MG TABLET PO SCH ×2 (10:49→21:34)
[2020-10-28] MEDS: ACETAMINOPHEN 650 MG/20.3 ML ORAL SOLUTION (CUPS) GT PRN ×2 (10:49→18:22)
[2020-10-28] MEDS: METOPROLOL TARTRATE 50 MG TABLET (FP) GT SCH ×2 (10:49→21:34)
[2020-10-28] MEDS: APIXABAN 5 MG TABLET GT SCH ×2 (10:49→21:34)
[2020-10-28] MEDS: LORazepam 2 MG/ML SDV VIAL IVPUSH PRN (18:23)
[2020-10-28] MEDS: CHLORHEXIDINE GLUCONATE 4% CLEANSER FOR DECOLONIZATION TP SCH (21:36)
[2020-10-29] MEDS: CEFTAZIDIME/AVIBACTAM 2.5 GM in DEXTROSE 5%-WATER - 250 ML IVPB SCH ×3 (01:04→17:08)
[2020-10-29] MEDS: ACETAMINOPHEN 650 MG/20.3 ML ORAL SOLUTION (CUPS) GT PRN (02:13)
[2020-10-29] MEDS: LORazepam 2 MG/ML SDV VIAL IVPUSH PRN (06:11)
[2020-10-29] MEDS: INSULIN SLIDING SCALE (NOVOLOG) 1 VIAL SQ SCH ×4 (07:02→22:30)
[2020-10-29] MEDS: INSULIN (LEVEMIR) 100 UNITS/ML UNITS SQ SCH ×2 (07:02→17:09)
[2020-10-29 07:05] LABS: BASO % 0.4 % (0-2.0); EOS % 5.3 % (0-4.5); HEMATOCRIT 32.3 % (35.4-49); HEMOGLOBIN 10.4 GM/dL (11.7-16.9); LYMPH % 27.4 % (8-40); MCH 30.2 pg (25.7-33.7); MCHC 32.2 g/dl (32.0-35.9); MEAN CELL VOLUME 93.8 fl (80-96); MEAN PLT VOLUME 12.2 fl (7.5-11.1); MONO % 7.8 % (3.8-10.2); NEUT % 59.1 % (42.8-82.8); PLATELET COUNT 137 10^3/uL (134-434); RBC 3.44 M/mm3 (4.00-5.60); RDW 16.7 % (11.9-15.9); WHITE BLOOD COUNT 5.6 K/mm3 (4.0-10.0)
[2020-10-29 07:34] LABS: CREATININE 0.6 mg/dL (0.55-1.3); PHOSPHOROUS 2.7 mg/dL (2.5-4.9)
[2020-10-29 07:35] LABS: ALBUMIN 1.9 g/dl (3.4-5.0); BILIRUBIN,TOTAL 0.2 mg/dL (0.2-1); BLOOD UREA NITROGEN 11.6 mg/dL (7-18)
[2020-10-29 07:39] LABS: CALCIUM 8.4 mg/dL (8.5-10.1); MAGNESIUM 2.4 mg/dL (1.8-2.4)
[2020-10-29 09:22] LABS: ANISOCYTOSIS 0; HELMET CELLS 0; HOWELL-JOLLY BODIES 0; MACROCYTOSIS 0; OVALOCYTE 0; PLATELET ESTIMATE DECREASED; ROULEAU 0; SICKELED CELLS 0; TARGET CELLS 0; TEAR DROP CELLS 0; TOXIC GRANULATION 0
[2020-10-29] MEDS ORDERED: PT OWN MED DRAWER 7, Y5N ONE ×2 (09:25→17:06)
[2020-10-29] MEDS: AMINO ACIDS/PROTEIN HYDROLYS 30 ML LIQUID.PKT PO SCH (09:28)
[2020-10-29] MEDS: METOPROLOL TARTRATE 50 MG TABLET (FP) GT SCH ×3 (09:31→22:28)
[2020-10-29] MEDS: APIXABAN 5 MG TABLET GT SCH ×2 (09:31→22:28)
[2020-10-29] MEDS: AMIODARONE HCL 200 MG TABLET PO SCH (09:31)
[2020-10-29] MEDS: FAMOTIDINE 40 MG/5 ML ORAL SUSPENSION NGT SCH (09:32)
[2020-10-29] MEDS: levETIRAcetam 500 MG/5 ML ORAL SOLUTION (UNIT-DOSE CUPS) GT SCH ×2 (09:32→22:28)
[2020-10-29] MEDS ORDERED: FUROSEMIDE 40 MG/4 ML INJECTABLE VIAL IVPUSH ONE (09:34)
[2020-10-29] MEDS: NYSTATIN 100,000 UNIT/GM TOPICAL CREAM 15 GM TUBE TP SCH ×2 (10:32→22:30)
[2020-10-29] MEDS: BACITRACIN 15 GM TUBE TOPICAL OINTMENT TP SCH (10:39)
[2020-10-29 15:34] VITALS: BMI 39.2
[2020-10-29] MEDS ORDERED: ARTIFICIAL TEARS (POLYVINYL ALCOHOL) OPTH DROPS OU PRN (15:35)
[2020-10-29] MEDS ORDERED: levETIRAcetam 500 MG/5 ML ORAL SOLUTION (UNIT-DOSE CUPS) PO ONE (16:42)
[2020-10-29] MEDS ORDERED: MEROPENEM 1 GM VIAL (RESTRICTED TO ID) IVPB ONE (17:05)
[2020-10-29] MEDS ORDERED: SODIUM CHLORIDE 100 ML IVPB ONE (17:05)
[2020-10-29] MEDS: MEROPENEM 1 GM in SODIUM CHLORIDE 100 ML IVPB SCH (17:07)
[2020-10-29] MEDS ORDERED: FENTANYL PATCH WASTE TD ONE (19:06)
[2020-10-29] MEDS ORDERED: AMIODARONE IN DEXTROSE,ISO-OSM 360 MG/200 ML BAG IVPB ONE (19:06)
[2020-10-29] MEDS ORDERED: METOPROLOL TARTRATE 5 MG/5 ML VIAL IVPUSH PRN (19:06)
[2020-10-29] MEDS ORDERED: CHLORHEXIDINE GLUCONATE 4% CLEANSER FOR DECOLONIZATION TP SCH (22:00)
[2020-10-29] MEDS: AMIODARONE HCL 200 MG TABLET GT SCH (22:28)
[2020-10-30] MEDS ORDERED: MEROPENEM 1 GM VIAL (RESTRICTED TO ID) IVPB ONE ×2 (02:35→09:47)
[2020-10-30] MEDS ORDERED: SODIUM CHLORIDE 100 ML IVPB ONE ×2 (02:35→09:47)
[2020-10-30] MEDS: CEFTAZIDIME/AVIBACTAM 2.5 GM in DEXTROSE 5%-WATER - 250 ML IVPB SCH ×3 (02:47→19:11)
[2020-10-30] MEDS: MEROPENEM 1 GM in SODIUM CHLORIDE 100 ML IVPB SCH ×3 (02:47→18:19)
[2020-10-30] MEDS: INSULIN (LEVEMIR) 100 UNITS/ML UNITS SQ SCH ×2 (06:24→18:20)
[2020-10-30] MEDS: INSULIN SLIDING SCALE (NOVOLOG) 1 VIAL SQ SCH ×4 (06:25→21:38)
[2020-10-30] MEDS: BACITRACIN 15 GM TUBE TOPICAL OINTMENT TP SCH (10:07)
[2020-10-30] MEDS: AMINO ACIDS/PROTEIN HYDROLYS 30 ML LIQUID.PKT GT SCH (10:07)
[2020-10-30] MEDS: AMIODARONE HCL 200 MG TABLET GT SCH ×2 (10:08→21:37)
[2020-10-30] MEDS: APIXABAN 5 MG TABLET GT SCH ×2 (10:08→21:37)
[2020-10-30] MEDS: METOPROLOL TARTRATE 50 MG TABLET (FP) GT SCH ×2 (10:08→21:37)
[2020-10-30] MEDS: NYSTATIN 100,000 UNIT/GM TOPICAL CREAM 15 GM TUBE TP SCH ×2 (10:09→21:38)
[2020-10-30] MEDS: levETIRAcetam 500 MG/5 ML ORAL SOLUTION (UNIT-DOSE CUPS) GT SCH ×2 (10:09→21:37)
[2020-10-30] MEDS ORDERED: PT OWN MED DRAWER 7, Y5N ONE ×2 (10:11→17:56)
[2020-10-30] MEDS: MULTIVIT-MINERALS ORAL LIQUID PO SCH (10:13)
[2020-10-30] MEDS: FAMOTIDINE 40 MG/5 ML ORAL SUSPENSION NGT SCH (10:14)
[2020-10-30 10:51] LABS: BASO % 0.3 % (0-2.0); EOS % 4.6 % (0-4.5); HEMATOCRIT 32.1 % (35.4-49); HEMOGLOBIN 10.4 GM/dL (11.7-16.9); LYMPH % 12.3 % (8-40); MCH 30.5 pg (25.7-33.7); MCHC 32.5 g/dl (32.0-35.9); MEAN CELL VOLUME 93.8 fl (80-96); MEAN PLT VOLUME 12.6 fl (7.5-11.1); MONO % 6.3 % (3.8-10.2); NEUT % 76.5 % (42.8-82.8); PLATELET COUNT 163 10^3/uL (134-434); RBC 3.43 M/mm3 (4.00-5.60); WHITE BLOOD COUNT 6.4 K/mm3 (4.0-10.0)
[2020-10-30 11:11] LABS: BLOOD UREA NITROGEN 14.2 mg/dL (7-18); CALCIUM 8.2 mg/dL (8.5-10.1); MAGNESIUM 2.3 mg/dL (1.8-2.4)
[2020-10-30 11:13] LABS: CREATININE 0.6 mg/dL (0.55-1.3)
[2020-10-30 11:15] LABS: BILIRUBIN,TOTAL 0.3 mg/dL (0.2-1); PHOSPHOROUS 2.6 mg/dL (2.5-4.9); TOT PROT 6.4 g/dl (6.4-8.2)
[2020-10-30] MEDS: ARTIFICIAL TEARS (POLYVINYL ALCOHOL) OPTH DROPS OU SCH ×3 (18:21→21:39)
[2020-10-30] MEDS: ACETAMINOPHEN 650 MG/20.3 ML ORAL SOLUTION (CUPS) GT PRN (18:33)
[2020-10-30] MEDS: ZINC OXIDE 20% TOPICAL OINTMENT 30 GM TUBE TP SCH (21:39)
[2020-10-31] MEDS: ARTIFICIAL TEARS (POLYVINYL ALCOHOL) OPTH DROPS OU SCH ×11 (00:22→23:03)
[2020-10-31] MEDS ORDERED: MEROPENEM 1 GM VIAL (RESTRICTED TO ID) IVPB ONE ×3 (01:41→17:17)
[2020-10-31] MEDS ORDERED: SODIUM CHLORIDE 100 ML IVPB ONE ×3 (01:41→17:18)
[2020-10-31] MEDS: MEROPENEM 1 GM in SODIUM CHLORIDE 100 ML IVPB SCH ×3 (02:30→17:41)
[2020-10-31] MEDS: CEFTAZIDIME/AVIBACTAM 2.5 GM in DEXTROSE 5%-WATER - 250 ML IVPB SCH ×2 (02:30→10:54)
[2020-10-31] MEDS: INSULIN SLIDING SCALE (NOVOLOG) 1 VIAL SQ SCH ×4 (06:15→21:03)
[2020-10-31] MEDS: INSULIN (LEVEMIR) 100 UNITS/ML UNITS SQ SCH ×2 (06:15→17:32)
[2020-10-31] MEDS: NYSTATIN 100,000 UNIT/GM TOPICAL CREAM 15 GM TUBE TP SCH ×2 (10:54→21:02)
[2020-10-31] MEDS: MULTIVIT-MINERALS ORAL LIQUID PO SCH (10:54)
[2020-10-31] MEDS: BACITRACIN 15 GM TUBE TOPICAL OINTMENT TP SCH (10:54)
[2020-10-31] MEDS: ZINC OXIDE 20% TOPICAL OINTMENT 30 GM TUBE TP SCH ×2 (10:54→21:03)
[2020-10-31] MEDS: AMINO ACIDS/PROTEIN HYDROLYS 30 ML LIQUID.PKT GT SCH (10:54)
[2020-10-31] MEDS: AMIODARONE HCL 200 MG TABLET GT SCH ×2 (11:08→21:01)
[2020-10-31] MEDS: APIXABAN 5 MG TABLET GT SCH ×2 (11:09→21:01)
[2020-10-31] MEDS: METOPROLOL TARTRATE 50 MG TABLET (FP) GT SCH ×2 (11:09→21:02)
[2020-10-31] MEDS: levETIRAcetam 500 MG/5 ML ORAL SOLUTION (UNIT-DOSE CUPS) GT SCH ×2 (11:09→21:01)
[2020-10-31] MEDS: FAMOTIDINE 40 MG/5 ML ORAL SUSPENSION NGT SCH (11:11)
[2020-10-31 16:06] LABS: HEMATOCRIT 29.6 % (35.4-49); HEMOGLOBIN 9.6 GM/dL (11.7-16.9); MCHC 32.4 g/dl (32.0-35.9); MEAN CELL VOLUME 92.5 fl (80-96); MEAN PLT VOLUME 10.7 fl (7.5-11.1); PLATELET COUNT 162 10^3/uL (134-434); RDW 17.6 % (11.9-15.9); WHITE BLOOD COUNT 5.2 K/mm3 (4.0-10.0)
[2020-10-31 16:18] LABS: CALCIUM 8.2 mg/dL (8.5-10.1)
[2020-10-31 16:19] LABS: ALBUMIN 1.9 g/dl (3.4-5.0); BLOOD UREA NITROGEN 16.1 mg/dL (7-18); MAGNESIUM 2.3 mg/dL (1.8-2.4)
[2020-10-31 16:22] LABS: CREATININE 0.5 mg/dL (0.55-1.3); PHOSPHOROUS 2.2 mg/dL (2.5-4.9)
[2020-10-31 16:23] LABS: BILIRUBIN,TOTAL 0.3 mg/dL (0.2-1)
[2020-10-31 16:24] LABS: TOT PROT 6.2 g/dl (6.4-8.2)
[2020-10-31] MEDS ORDERED: PT OWN MED DRAWER 7, Y5N ONE (20:43)
[2020-10-31] MEDS: ACETAMINOPHEN 650 MG/20.3 ML ORAL SOLUTION (CUPS) GT PRN (21:00)
[2020-11-01] MEDS: ARTIFICIAL TEARS (POLYVINYL ALCOHOL) OPTH DROPS OU SCH ×13 (01:13→23:48)
[2020-11-01] MEDS ORDERED: PT OWN MED DRAWER 7, Y5N ONE ×3 (01:25→10:38)
[2020-11-01] MEDS: MEROPENEM 1 GM in SODIUM CHLORIDE 100 ML IVPB SCH ×3 (02:00→17:40)
[2020-11-01] MEDS: INSULIN (LEVEMIR) 100 UNITS/ML UNITS SQ SCH ×2 (06:02→17:40)
[2020-11-01] MEDS: INSULIN SLIDING SCALE (NOVOLOG) 1 VIAL SQ SCH ×4 (06:02→22:48)
[2020-11-01 08:13] LABS: BASO % 0.3 % (0-2.0); EOS % 3.1 % (0-4.5); HEMATOCRIT 31.7 % (35.4-49); HEMOGLOBIN 10.3 GM/dL (11.7-16.9); LYMPH % 21.8 % (8-40); MCH 30.5 pg (25.7-33.7); MCHC 32.4 g/dl (32.0-35.9); MEAN PLT VOLUME 11.1 fl (7.5-11.1); MONO % 5.8 % (3.8-10.2); PLATELET COUNT 183 10^3/uL (134-434); RBC 3.37 M/mm3 (4.00-5.60); RDW 18.1 % (11.9-15.9); WHITE BLOOD COUNT 6.1 K/mm3 (4.0-10.0)
[2020-11-01 08:43] LABS: CALCIUM 8.3 mg/dL (8.5-10.1)
[2020-11-01 08:44] LABS: BLOOD UREA NITROGEN 18.2 mg/dL (7-18)
[2020-11-01 08:46] LABS: CREATININE 0.6 mg/dL (0.55-1.3)
[2020-11-01 08:48] LABS: TOT PROT 6.4 g/dl (6.4-8.2)
[2020-11-01 08:49] LABS: BILIRUBIN,TOTAL 0.3 mg/dL (0.2-1)
[2020-11-01] MEDS ORDERED: MEROPENEM 1 GM VIAL (RESTRICTED TO ID) IVPB ONE ×2 (10:27→17:27)
[2020-11-01] MEDS ORDERED: SODIUM CHLORIDE 100 ML IVPB ONE ×2 (10:28→17:27)
[2020-11-01] MEDS: levETIRAcetam 500 MG/5 ML ORAL SOLUTION (UNIT-DOSE CUPS) GT SCH ×2 (10:32→22:44)
[2020-11-01] MEDS: METOPROLOL TARTRATE 50 MG TABLET (FP) GT SCH ×2 (10:33→22:43)
[2020-11-01] MEDS: APIXABAN 5 MG TABLET GT SCH ×2 (10:33→22:43)
[2020-11-01] MEDS: AMINO ACIDS/PROTEIN HYDROLYS 30 ML LIQUID.PKT GT SCH (10:33)
[2020-11-01] MEDS: AMIODARONE HCL 200 MG TABLET GT SCH ×2 (10:33→22:43)
[2020-11-01] MEDS: MULTIVIT-MINERALS ORAL LIQUID PO SCH (10:39)
[2020-11-01] MEDS: FAMOTIDINE 40 MG/5 ML ORAL SUSPENSION NGT SCH (10:39)
[2020-11-01] MEDS: ZINC OXIDE 20% TOPICAL OINTMENT 30 GM TUBE TP SCH ×2 (12:20→22:45)
[2020-11-01] MEDS: BACITRACIN 15 GM TUBE TOPICAL OINTMENT TP SCH (12:20)
[2020-11-01] MEDS: NYSTATIN 100,000 UNIT/GM TOPICAL CREAM 15 GM TUBE TP SCH ×2 (12:20→22:45)
[2020-11-02] MEDS ORDERED: MEROPENEM 1 GM VIAL (RESTRICTED TO ID) IVPB ONE ×3 (01:15→17:38)
[2020-11-02] MEDS ORDERED: SODIUM CHLORIDE 100 ML IVPB ONE ×3 (01:15→17:38)
[2020-11-02] MEDS: MEROPENEM 1 GM in SODIUM CHLORIDE 100 ML IVPB SCH ×3 (01:23→18:12)
[2020-11-02] MEDS: ARTIFICIAL TEARS (POLYVINYL ALCOHOL) OPTH DROPS OU SCH ×11 (01:24→22:03)
[2020-11-02] MEDS: INSULIN (LEVEMIR) 100 UNITS/ML UNITS SQ SCH ×2 (06:41→18:13)
[2020-11-02] MEDS: INSULIN SLIDING SCALE (NOVOLOG) 1 VIAL SQ SCH ×4 (06:42→22:02)
[2020-11-02] MEDS ORDERED: PT OWN MED DRAWER 7, Y5N ONE (09:48)
[2020-11-02] MEDS: AMINO ACIDS/PROTEIN HYDROLYS 30 ML LIQUID.PKT GT SCH (10:02)
[2020-11-02] MEDS: FAMOTIDINE 40 MG/5 ML ORAL SUSPENSION NGT SCH (10:03)
[2020-11-02] MEDS: levETIRAcetam 500 MG/5 ML ORAL SOLUTION (UNIT-DOSE CUPS) GT SCH ×2 (10:04→22:02)
[2020-11-02] MEDS: AMIODARONE HCL 200 MG TABLET GT SCH ×2 (10:04→22:01)
[2020-11-02] MEDS: MULTIVIT-MINERALS ORAL LIQUID PO SCH (10:04)
[2020-11-02] MEDS: METOPROLOL TARTRATE 50 MG TABLET (FP) GT SCH ×2 (10:04→22:02)
[2020-11-02] MEDS: APIXABAN 5 MG TABLET GT SCH ×2 (10:04→22:01)
[2020-11-02] MEDS: NYSTATIN 100,000 UNIT/GM TOPICAL CREAM 15 GM TUBE TP SCH (10:07)
[2020-11-02] MEDS: BACITRACIN 15 GM TUBE TOPICAL OINTMENT TP SCH (10:07)
[2020-11-02] MEDS: ZINC OXIDE 20% TOPICAL OINTMENT 30 GM TUBE TP SCH ×2 (10:08→22:03)
[2020-11-02 10:26] LABS: BASO % 0.5 % (0-2.0); EOS % 5.7 % (0-4.5); HEMATOCRIT 31.3 % (35.4-49); HEMOGLOBIN 10.1 GM/dL (11.7-16.9); LYMPH % 23.9 % (8-40); MCH 30.3 pg (25.7-33.7); MCHC 32.4 g/dl (32.0-35.9); MEAN CELL VOLUME 93.7 fl (80-96); MONO % 10.1 % (3.8-10.2); NEUT % 59.8 % (42.8-82.8); PLATELET COUNT 171 10^3/uL (134-434); RBC 3.34 M/mm3 (4.00-5.60); RDW 18.7 % (11.9-15.9); WHITE BLOOD COUNT 4.8 K/mm3 (4.0-10.0)
[2020-11-02] MEDS: COLLAGENASE CLOSTRIDIUM HIST. 30 GRAMS TUBE TP SCH (14:05)
[2020-11-02] MEDS: NYSTATIN POWDER 100,000 UNITS/GM - 15 GM TOPICAL POWDER TP SCH (22:03)
[2020-11-03] MEDS: ARTIFICIAL TEARS (POLYVINYL ALCOHOL) OPTH DROPS OU SCH ×11 (00:29→21:15)
[2020-11-03] MEDS ORDERED: MEROPENEM 1 GM VIAL (RESTRICTED TO ID) IVPB ONE ×3 (00:45→17:11)
[2020-11-03] MEDS ORDERED: SODIUM CHLORIDE 100 ML IVPB ONE ×3 (00:46→17:12)
[2020-11-03] MEDS: MEROPENEM 1 GM in SODIUM CHLORIDE 100 ML IVPB SCH ×3 (01:57→17:26)
[2020-11-03] MEDS: INSULIN (LEVEMIR) 100 UNITS/ML UNITS SQ SCH ×2 (06:30→17:26)
[2020-11-03] MEDS: INSULIN SLIDING SCALE (NOVOLOG) 1 VIAL SQ SCH ×4 (06:30→21:03)
[2020-11-03] MEDS ORDERED: PT OWN MED DRAWER 7, Y5N ONE (11:06)
[2020-11-03] MEDS: FAMOTIDINE 40 MG/5 ML ORAL SUSPENSION NGT SCH (11:23)
[2020-11-03] MEDS: ACETAMINOPHEN 650 MG/20.3 ML ORAL SOLUTION (CUPS) GT PRN (11:24)
[2020-11-03] MEDS: MULTIVIT-MINERALS ORAL LIQUID PO SCH (11:25)
[2020-11-03] MEDS: BACITRACIN 15 GM TUBE TOPICAL OINTMENT TP SCH (11:26)
[2020-11-03] MEDS: AMINO ACIDS/PROTEIN HYDROLYS 30 ML LIQUID.PKT GT SCH (11:26)
[2020-11-03] MEDS: APIXABAN 5 MG TABLET GT SCH ×2 (11:27→21:15)
[2020-11-03] MEDS: AMIODARONE HCL 200 MG TABLET GT SCH ×2 (11:27→21:14)
[2020-11-03] MEDS: levETIRAcetam 500 MG/5 ML ORAL SOLUTION (UNIT-DOSE CUPS) GT SCH ×2 (11:27→21:14)
[2020-11-03] MEDS: METOPROLOL TARTRATE 50 MG TABLET (FP) GT SCH ×2 (11:27→21:16)
[2020-11-03] MEDS: NYSTATIN POWDER 100,000 UNITS/GM - 15 GM TOPICAL POWDER TP SCH (11:28)
[2020-11-03] MEDS: COLLAGENASE CLOSTRIDIUM HIST. 30 GRAMS TUBE TP SCH (11:29)
[2020-11-03] MEDS: ZINC OXIDE 20% TOPICAL OINTMENT 30 GM TUBE TP SCH (11:29)
[2020-11-03] MEDS ORDERED: ACETAMINOPHEN 650 MG/20.3 ML ORAL SOLUTION (CUPS) GT ONE (15:36)
[2020-11-03] MEDS ORDERED: ACETAMINOPHEN 650 MG/20.3 ML ORAL SOLUTION (CUPS) PO ONE (15:36)
[2020-11-04 01:10] VITALS: BP 95/66; PULSE 72; TEMP 99.3
== END 2020-11-03 21:42 | DRG 870 ==
LOC: JER 01:46 → JERBED 05:36 → JICU 09:28 → J5S 10-29 18:59
PROVIDERS: ADMIT Internal Medicine Pulmonary Disease; ATTEND Internal Medicine
PROC: 5A1955Z Respiratory Ventilation, Greater than 96 Consecutive Hours (ICD-10-PCS; principal; 2020-10-22)
PROC: 3E0G36Z Introduction of Nutritional Substance into Upper GI, Percutaneous Approach (ICD-10-PCS; 2020-10-22)
DX: A41.9 Sepsis, unspecified organism (principal); J18.9 Pneumonia, unspecified organism; R65.21 Severe sepsis with septic shock; J96.21 Acute and chronic respiratory failure with hypoxia; E87.0 Hyperosmolality and hypernatremia; G93.1 Anoxic brain damage, not elsewhere classified; N17.9 Acute kidney failure, unspecified; Z99.11 Dependence on respirator [ventilator] status; Z68.41 Body mass index [BMI] 40.0-44.9, adult; I24.8 Other forms of acute ischemic heart disease; J44.9 Chronic obstructive pulmonary disease, unspecified; I48.91 Unspecified atrial fibrillation; I10 Essential (primary) hypertension; Z93.0 Tracheostomy status; Z93.1 Gastrostomy status; K21.9 Gastro-esophageal reflux disease without esophagitis; R00.0 Tachycardia, unspecified; E86.0 Dehydration; L89.159 Pressure ulcer of sacral region, unspecified stage; E11.65 Type 2 diabetes mellitus with hyperglycemia; D72.829 Elevated white blood cell count, unspecified; E87.6 Hypokalemia; I95.9 Hypotension, unspecified; E66.9 Obesity, unspecified; N40.0 Benign prostatic hyperplasia without lower urinary tract symptoms
CPT/HCPCS: 36415; 36600; 71045-TC-FY; 74018-TC-FY; 80048; 80053; 80177; 81003; 82272; 82803; 82962; 83036; 83605; 83735; 83880; 83935; 84100; 84295; 84300; 84439; 84443; 84484; 84550; 85025; 85027; 85610; 85730; 87040; 87070; 87077; 87086; 87186; 87205; 87804; 93005; 93010; 94002; 99291; 99292; C9803; G0480; J0131; J0282; J3480; U0003; U0005

== ENCOUNTER 2021-02-03 12:38 | Inpatient (IN) | payer OTHER ==
[2021-02-03] MEDS ORDERED: ACETAMINOPHEN INJECTION 100 ML IVPB ONE (12:46)
[2021-02-03 12:48] VITALS: BMI 35.6
[2021-02-03] MEDS ORDERED: SODIUM CHLORIDE IV ONE (13:00)
[2021-02-03] MEDS ORDERED: SODIUM CHLORIDE 1,000 ML IV STA ×2 (13:02→15:12)
[2021-02-03] MEDS ORDERED: NOREPINEPHRINE BITARTRATE 4 MG/4 ML ML IV ONE (13:11)
[2021-02-03] MEDS ORDERED: PIPERACILLIN/TAZOB 4.5 GM 4.5 GM in DEXTROSE 5%-WATER 100 ML IVPB ONE (13:37)
[2021-02-03] MEDS ORDERED: VANCOMYCIN 1 GM in D5W (PRE-DOCKED) 1,000 MG/250 ML IVPB ONE (13:37)
[2021-02-03] MEDS ORDERED: PIPERACILLIN/TAZOB 4.5 GM 4.5 GM/100 ML BAG IVPB ONE (13:53)
[2021-02-03] MEDS ORDERED: VANCOMYCIN 1 GRAM (PRE-DOCKED) 1,000 MG/250 ML BAG IVPB ONE (13:53)
[2021-02-03] MEDS ORDERED: NOREPINEPHRINE D5W PREMIX 16,000 MCG/500 ML BAG IVPB SCH (14:00)
[2021-02-03 14:05] LABS: HEMATOCRIT 25.8 % (35.4-49); HEMOGLOBIN 7.4 GM/dL (11.7-16.9); MCH 30.7 pg (25.7-33.7); MCHC 28.7 g/dl (32.0-35.9); MEAN CELL VOLUME 107.1 fl (80-96); MEAN PLT VOLUME 13.3 fl (7.5-11.1); RDW 18.3 % (11.9-15.9); WHITE BLOOD COUNT 8.9 K/mm3 (4.0-10.0)
[2021-02-03 14:15] LABS: INR 2.16 (0.83-1.09); PROTHROMBIN TIME (PATIENT) 24.4 SEC (9.7-13.0)
[2021-02-03 14:21] LABS: CHLORIDE 129 mmol/L (98-107)
[2021-02-03 14:23] LABS: CALCIUM 7.8 mg/dL (8.5-10.1)
[2021-02-03 14:24] LABS: ALBUMIN 1.4 g/dl (3.4-5.0); BLOOD UREA NITROGEN 74.2 mg/dL (7-18); CO2 23 mmol/L (21-32)
[2021-02-03 14:27] LABS: CREATININE 2.8 mg/dL (0.55-1.3); SGOT/AST 74 U/L (15-37); SGPT/ALT 33 U/L (13-61)
[2021-02-03 14:28] LABS: BILIRUBIN,TOTAL 0.6 mg/dL (0.2-1); TOT PROT 7.8 g/dl (6.4-8.2)
[2021-02-03 14:30] LABS: ALK PHOS 67 U/L (45-117)
[2021-02-03 14:36] LABS: ANION GAP 13 MMOL/L (8-16); GLUCOSE,RANDOM 491 mg/dL (74-106); SODIUM 164 mmol/L (136-145)
[2021-02-03 14:48] LABS: LACTIC ACID 13.6 mmol/L (0.4-2.0)
[2021-02-03 15:03] LABS: ANISOCYTOSIS 3+; MACROCYTOSIS 1+; PLATELET ESTIMATE NORMAL
[2021-02-03 15:08] LABS: PLATELET COUNT 185 10^3/uL (134-434)
[2021-02-03 15:11] LABS: VENOUS BASE EXCESS -10.1 mmol/L (-2-2); VENOUS O2 SATURATION 82.6 % (70-80); VENOUS PCO2 40.5 mmHg (38-52); VENOUS PH 7.23 (7.310-7.410)
[2021-02-03 16:03] VITALS: PULSE 98
[2021-02-03 16:21] LABS: ALBUMIN 1.2 g/dl (3.4-5.0); BLOOD UREA NITROGEN 76.9 mg/dL (7-18); CALCIUM 7.6 mg/dL (8.5-10.1); CO2 15 mmol/L (21-32)
[2021-02-03 16:24] LABS: CREATININE 2.7 mg/dL (0.55-1.3); SGOT/AST 65 U/L (15-37); SGPT/ALT 30 U/L (13-61)
[2021-02-03 16:26] LABS: BILIRUBIN,TOTAL 0.6 mg/dL (0.2-1)
[2021-02-03 16:27] LABS: ALK PHOS 66 U/L (45-117)
[2021-02-03 16:50] LABS: ANION GAP 19 MMOL/L (8-16); CHLORIDE 130 mmol/L (98-107); GLUCOSE,RANDOM 465 mg/dL (74-106); SODIUM 164 mmol/L (136-145)
[2021-02-03] MEDS ORDERED: VASOPRESSIN 20 UNITS/ML VIAL IV ONE ×2 (16:54→17:01)
[2021-02-03] MEDS ORDERED: VASOPRESSIN 40 UNITS/100 ML BAG IV SCH ×2 (17:00)
[2021-02-03] MEDS ORDERED: INSULIN REGULAR 100 UNITS in SODIUM CHLORIDE 99 ML IVPB SCH (17:30)
[2021-02-03] MEDS ORDERED: SODIUM CHLORIDE 1,000 ML IV SCH (17:30)
[2021-02-03 20:32] VITALS: TEMP 102
[2021-02-03 20:35] VITALS: BP 75/52
[2021-02-03] MEDS ORDERED: MUPIROCIN 2% TOPICAL OINTMENT FOR DECOLONIZATION NS SCH (22:00)
[2021-02-03] MEDS ORDERED: CHLORHEXIDINE GLUCONATE 4% CLEANSER FOR DECOLONIZATION TP SCH (22:00)
== END 2021-02-03 16:08 | disposition expired | DRG 871 ==
LOC: JER 12:38 → JERBED 15:06
PROVIDERS: ADMIT Internal Medicine; ATTEND Internal Medicine
PROC: 05HM33Z Insertion of Infusion Device into Right Internal Jugular Vein, Percutaneous Approach (ICD-10-PCS; principal; 2021-02-03)
PROC: B513ZZA Fluoroscopy of Right Jugular Veins, Guidance (ICD-10-PCS; 2021-02-03)
PROC: 5A1935Z Respiratory Ventilation, Less than 24 Consecutive Hours (ICD-10-PCS; 2021-02-03)
DX: A41.9 Sepsis, unspecified organism (principal); L89.153 Pressure ulcer of sacral region, stage 3; E11.11 Type 2 diabetes mellitus with ketoacidosis with coma; G91.9 Hydrocephalus, unspecified; E87.2 Acidosis; E87.0 Hyperosmolality and hypernatremia; N17.9 Acute kidney failure, unspecified; G93.1 Anoxic brain damage, not elsewhere classified; J44.9 Chronic obstructive pulmonary disease, unspecified; R65.20 Severe sepsis without septic shock; K21.9 Gastro-esophageal reflux disease without esophagitis; E03.9 Hypothyroidism, unspecified; I48.91 Unspecified atrial fibrillation; I95.9 Hypotension, unspecified; R09.02 Hypoxemia; I46.9 Cardiac arrest, cause unspecified; R50.9 Fever, unspecified; I25.2 Old myocardial infarction; I10 Essential (primary) hypertension; E87.5 Hyperkalemia; B19.20 Unspecified viral hepatitis C without hepatic coma; E86.0 Dehydration; E66.9 Obesity, unspecified; Z68.35 Body mass index [BMI] 35.0-35.9, adult; R00.0 Tachycardia, unspecified; Z66 Do not resuscitate; Z85.89 Personal history of malignant neoplasm of other organs and systems; Z93.0 Tracheostomy status; Z93.1 Gastrostomy status
CPT/HCPCS: 36415; 71045-TC-FY; 80053; 82010; 82803; 82962; 83605; 84484; 85025; 85610; 85730; 87040; 93005; 93010; 99285-25; C9803; J3490; U0003; U0005